=== PATIENT | male | born 1945 | race Caucasian/White ===

== ENCOUNTER 2024-01-19 07:45 | Outpatient (REF) | payer MEDICARE, OTHER, SELFPAY ==
[2024-01-19 08:10] LABS: Prothrombin Time 30.2 sec (9.0-11.6)
== END 2024-01-19 07:46 | disposition home or self-care (01) ==
LOC: LAB 07:45
PROVIDERS: Family Provider Internal Medicine; Visit Provider Nurse Practitioner Adult Health
DX: Z79.01 Long term (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 (principal)
CPT/HCPCS: 36415; 85610

== ENCOUNTER 2024-12-30 06:11 | Inpatient (IN) | payer MEDICARE, OTHER, SELFPAY ==
[2024-12-30] VITALS (110 sets, daily range): BP systolic 81–156; BP diastolic 58–113; PULSE 75–192; TEMP 36.6–37.5; O2SAT 85–100; BMI 28.1; BMI 25.7
--- OUTSIDE RECORDS SUMMARY | 2024-12-30 06:36 | XMS_ITS ---
Author Organization [facility] Address [address] [place] [address] Care Team Providers Care Office Specialist Name Role Phone Shabana Adams MD Primary Care Provider [phone] Carey Mckinney RN Unavailable [phone] Kristal Johnson ASSISTANT CHILD CARE TEACHER Unavailable [phone] [facility] Transitional Care Management Status:Enrolled (Active) Start date:11/20/2024 Enrollment date:11/22/2024 Enrollment reason:Identified using hospital discharge data Overview Patient discharged from [facility] on 11/20. Patient admitted to [facility]. Please contact SNF facility for BASILIO (inpt to SNF) within 48 hours. Case Team Name Relationship Phone Brittney Brown LPN(Responsible Staff) Licensed Pr actical Nurse [phone] Continued Care and Services Coordination
--- OUTSIDE RECORDS SUMMARY | 2024-12-30 06:36 | XMS_ITS | Encounter Summary ---
Author Organization [facility] [employer] Address [facility] [place]-[id number] [address] [place] [address] Care Team Providers Care Fundraising Coordinator Name Role Phone Shabana Adams MD Primary Care Provider [phone] Reason for Visit * Reason Onset Date Comments Med Refill 07/22/2023 Encounter Details Date Type Department Care Team (Late st Contact Info) Description 07/22/2023 Refill [facility] [address] [place] [address] Lula Bryant, RN Med Refill Social History Tobacco Use Types Packs/Day Years Used Date Smoking Tobacco: Former Smokeless Tobacco: Never Alcohol Use Standard Drinks/Week Comments No 0 (1 standard drink = 0.6 oz pur e alcohol) Childcare Answer Date Recorded Childcare Unknown 11/21/2018 Employment Answer Date Recorded Employment Unknown 11/21/2018 Hunger Screening Answer Date Recorded Within the past 12 months we worried whether our food would run out before we got money to buy more. Never True 05/07/2023 Within the past 12 months th e food we bought just didn't last and we didn't have money to get more. Never True 05/07/2023 Purpose - Life Answer Date Recorded Purpose and direction in life Unknown Sex and Gender Information Value Date Recorded Sex Assigned at Male 11/07/2024 7:23 PM EDT Legal Sex Male 11:27 AM EDT Gender Identity Male 11/07/2024 7:23 PM EDT Sexual Orientation Straight 11/07/2024 7: 23 PM EDT documented as of this encounter Plan of Treatment Upcoming Encounters Date Type Department Care Team (Late st Contact Info) Description 02/24/2025 11:30 AM EDT Office Visit [facility] [address] [place] [phone] Timothy Kang MD [address] [place] [address] 06/02/2025 12:00 PM EST Office Visit [facility] [address] [place] [address] Valeria Gonzalez MD [address] [facility] [place] [address] documented as of this encounter Results * Magnesium (08/13/2023 10:00 AM EST) Magnesium 2.1 1.8 - 2.6 mg/dL 08/13/2023 3:02 PM EST [facility] PL[facility] 08/13/2023 10:0 0 AM EST 08/13/2023 10:02 AM EST Kelin Dumont COURT BAILIFF OR SHERIFF-TOLL TEST WORKER LAB BLOOD ORDERABLES Final Result [facility] [address] [place] [address] documented in this encounter Visit Diagnoses Diagnosis Primary hypertension- Primary Unspecified essential hypertension Coronary artery disease involving [place] coronary artery of [place] heart without angina pectoris documented in this encounter Additional Health Concerns Infection Onset Date Last Indicated Resolved Time Respiratory Rule-Out 11/05/2024 11/05/2024 025 5:50 AM EDT documented as of this encounter Care Teams Fundraising Coordinator Relationship Specialty Start Date End Date Shabana Adams MD [address] [place] [address] PCP - General Family Medicine 11/05/24 documented as of this encounter
--- OUTSIDE RECORDS SUMMARY | 2024-12-30 06:36 | XMS_ITS | Encounter Summary ---
Author Organization [employer] Address [id number] [address] [place] [address] Care Team Providers Care Network Management Specialist Name Role Phone Shabana Adams MD Primary Care Provider [phone] Reason for Visit * Reason Onset Date Comments Consult 11/13/2024 ectopy Encounter Details Date Type Department Care Team (Late st Contact Info) Description 11/13/2024 Telephone [facility] [address] [place] [address] Vandana Lopez Consult (ectopy) Social History Tobacco Use Types Packs/Day Years Used Date Smoking Tobacco: Former Cigarettes 1974 Smokeless Tobacco: Never Alcohol Use Standard Drinks/Week Comments No 0 (1 standard drink = 0.6 oz pur e alcohol) rare -yearly [facility] Utilities Answer Date Recorded In the past 12 months has [employer], gas, oil, or water [employer] threatened to shut off services in your home? No 11/10/2024 AUDIT-C Answer Date Recorded Q1: How often do you have a drink containing alc ohol? Monthly or less 11/10/2024 Q2: How many drinks containi ng alcohol do you have on a typical day when you are drinking? 1 or 2 11/10/2024 Q3: How often do you have si x or more drinks on one occasion? Never 11/10/2024 PHQ-2 Answer Date Recorded Total Score 3 11/10/2024 PRAPARE - Transportation Answer Date Re corded In the past 12 months, has l ack of transportation kept you from medical appointments or from getting medications? No 10/22 In the past 12 months, has l ack of transportation kept you from meetings, work, or from getting things needed for daily living? No 11/10/2024 Housing Instability Answer Date Recorde d Are you worried or concerned that in the next two months you may not have stable housing that you own, rent or stay in as a part of a household? No 11/10/2024 Childcare Answer Date Recorded Childcare Unknown 11/21/2018 Employment Answer Date Recorded Employment Unknown 11/21/2018 Hunger Screening Answer Date Recorded Within the past 12 months we worried whether our food would run out before we got money to buy more. Never True 11/10/2024 Within the past 12 months th e food we bought just didn't last and we didn't have money to get more. Never True 11/10/2024 Purpose - Life Answer Date Recorded Purpose and direction in life Unknown Sex and Gender Information Value Date Recorded Sex Assigned at Male 11/07/2024 7:23 PM EDT Legal Sex Male 11:27 AM EDT Gender Identity Male 11/07/2024 7:23 PM EDT Sexual Orientation Straight 11/07/2024 7: 23 PM EDT documented as of this encounter Mental Status * Question Answer Entry Date Author Overall Cognitive Status X 11/16/2024 11:43 AM EDT Sandy Uriostegui OTA/Juan Carlos documented in this encounter Miscellaneous Notes * Telephone Encounter - Vandana Lopez - 11/13/2024 6:09 AM EDT Contract: [facility] calling for consult for ectopy. Room A825. Sent secure chat to Kelin Dumont. documented in this encounter Plan of Treatment Upcoming Encounters Date Type Department Care Team (Late st Contact Info) Description 02/24/2025 11:30 AM EDT Office Visit [facility] [address] [place] [phone] Timothy Kang MD [address] [place] [address] 06/02/2025 12:00 PM EST Office Visit [facility] [address] [place] [phone] Valeria Gonzalez MD [address] [address] documented as of this encounter Goals Goal Patient Goal Type Associated Problems Recent Progress Patient-Stated? Author <enter goal here> General Yes Juliet Bhatti, JOSE Note: Evaluation of progress towards goal: safe discharge documented as of this encounter Visit Diagnoses Not on filedocumented in this encounter Additional Health Concerns Assessment Noted Time PHQ-9 Depression Total Score: 3 11/11/19 11:13 AM EDT documented as of this encounter Care Teams Network Management Specialist Relationship Specialty Start Date End Date Shabana Adams MD [address] [place] [address] PCP - General Family Medicine 11/05/24 documented as of this encounter
--- OUTSIDE RECORDS SUMMARY | 2024-12-30 06:36 | XMS_ITS ---
Author Organization [facility] Address [address] [place] [address] Care Team Providers Care Script Reader Name Role Phone Shabana Adams MD Primary Care Provider Carey Mckinney RN Unavailable [phone] Kristal Johnson [employer] TEACHER Unavailable [phone] Chronic Care Management (CCM) Status:Enrolled (Active) Start date:10/06/2023 Enrollment date:10/28/2023 Enrollment reason:Referred by provider Overview Please assess for Care Management needs. 10/28/23, 3:51 PM - Carey Mckinney RN- Patient gives verbal consent to be enrolled in CCM Program and understands there could be a bill for this service. Case Team Name Relationship Phone Carey Mckinney RN(Responsible Staff) Registered Nurse [phone] Continued Care and Services Coordination
--- OUTSIDE RECORDS SUMMARY | 2024-12-30 06:36 | XMS_ITS | Encounter Summary ---
Author Organization [facility] [employer] Address [facility][id number] [address] [place] [address] Care Team Providers Care Dye Can Operator Name Role Phone Shabana Adams MD Primary Care Provider [phone] Encounter Details Date Type Department Care Team (Late st Contact Info) Description 04/06/2020 [facility]phone [facility] [address] [place] [address] [address] [place] [address] Social History Tobacco Use Types Packs/Day Years Used Date Smoking Tobacco: Former Smokeless Tobacco: Never Alcohol Use Standard Drinks/Week Comments No 0 (1 standard drink = 0.6 oz pur e alcohol) Childcare Answer Date Recorded Childcare Unknown 11/21/2018 Employment Answer Date Recorded Employment Unknown 11/21/2018 Sex and Gender Information Value Date Recorded Sex Assigned at Male 11/07/2024 7:23 PM EDT Legal Sex Male 11:27 AM EDT Gender Identity Male 11/07/2024 7:23 PM EDT Sexual Orientation Straight 11/07/2024 7: 23 PM EDT COVID-19 Exposure Response Date Recorded In the last month, have you been in contact with someone who was confirmed or suspected to have Coronavirus / COVID-19? No / Unsure 03/23/2020 8:46 AM EDT documented as of this encounter Miscellaneous Notes * Telephone Encounter - Zari Lane - 04/06/2020 3:34 PM EDT ----- Message from Zari Lane sent at 12/14/2019 3:18 PM EDT ----- Ruperto Cartagena MD Yesterday (9:43 AM) Cysto, local, [place]. Setup 6 months. Diagnosis history urothelial carcinoma * Telephone Encounter - Zari Lane - 04/06/2020 3:34 PM EDT SCHED 05/03/2020 documented in this encounter Plan of Treatment Upcoming Encounters Date Type Department Care Team (Late st Contact Info) Description 02/24/2025 11:30 AM EDT Office Visit [facility] [address] [place] [address] Timothy Kang MD [address] [place] [address] 06/02/2025 12:00 PM EST Office Visit [facility] [address] [place] [address] Valeria Gonzalez MD [address] [address] [place] [address] documented as of this encounter Visit Diagnoses Not on filedocumented in this encounter Additional Health Concerns Infection Onset Date Last Indicated Resolved Time Respiratory Rule-Out 11/05/2024 11/05/2024 025 5:50 AM EDT documented as of this encounter Care Teams Dye Can Operator Relationship Specialty Start Date End Date Shabana Adams MD [address] [place], [place] [phone] PCP - General Family Medicine 11/05/24 documented as of this encounter
--- OUTSIDE RECORDS SUMMARY | 2024-12-30 06:36 | XMS_ITS | Continuity of Care Document ---
Author Organization [facility] Address [address] [place] [address] Problems Unknown Problems Results Test Value / Unit Interpretation Reference Ran ge SARS-CoV-2 (COVID-19), RT-PC R/TMA[[id number]] Collected: 05/11/2021 03:06 PM Specimen Received: 05/12/2021 08:29 PM SARS-CoV-2 INTERPRETATION [[id number]] Negative Beatriz l See Note SARS-CoV-2 RNA NOT DETECTEDN egative results do not preclude SARS-CoV-2 infection and should notbe used as the sole basis for patient management decisions. Negativeresults must be combined with clinical observations, patient history,and epidemiological information. Optimum specimen types and timingfor peak viral levels during infections caused by SARS-CoV-2 have notbeen determined. Collection of multiple specimens or types ofspecimens may be necessary to detect virus. Improper specimencollection and handling, sequence variability under primers/probes,or organism present below the limit of detection may lead to falsenegative results. Positive and negative predictive values oftesting are highly dependent on prevalence. False negative testresults are more likely when prevalence is high. SOURCE [[id number]] NASOPHARYNGEAL Normal Note: Methodology is [employer] Real-Time RT-PCR. The expected result or reference range is NEGATIVE (Not Detected). For more information regarding COVID-19 testing to include clinicalinformation, methodology detail, intended use, FDA authorization andrecommended fact sheets for patients or healthcare providers, see NewTest Announcement: SARS-CoV-2 (COVID-19) by NAAT at URL below (note,fact sheets are provided by method given in report:[email or web address]/client-communications/ Alternatively, see downloadable PDF fact sheet at:https://www.[email or web address]-57-ZM-PCR Allergies, adverse reactions, alerts No known allergies and adverse reactions Medications No administered medications reported Vital Signs No vital signs reported Social History No smoking Hx information available
--- OUTSIDE RECORDS SUMMARY | 2024-12-30 06:36 | XMS_ITS | Encounter Summary ---
Author Organization [facility] Address [id number] [address] [place] [address] Care Team Providers Care Bean Roaster Name Role Phone Shabana Adams MD Primary Care Provider [phone] Encounter Details Date Type Department Care Team (Late st Contact Info) Description 02/27/2024 Telephone [facility] [address] [facility] [facility] [place] [address] Stephanie Blackburn CNA Social History Tobacco Use Types Packs/Day Years Used Date Smoking Tobacco: Former Smokeless Tobacco: Never Alcohol Use Standard Drinks/Week Comments No 0 (1 standard drink = 0.6 oz pur e alcohol) [facility] Utilities Answer Date Recorded In the past 12 months has e electric, gas, oil, or water company threatened to shut off services in your home? No 12/26/2023 PRAPARE - Transportation Answer Date Re corded In the past 12 months, has l ack of transportation kept you from medical appointments or from getting medications? No 10/2023 In the past 12 months, has l ack of transportation kept you from meetings, work, or from getting things needed for daily living? No 12/26/2023 Housing Instability Answer Date Recorde d Are you worried or concerned that in the next two months you may not have stable housing that you own, rent or stay in as a part of a household? No 12/26/2023 Childcare Answer Date Recorded Childcare Unknown 11/21/2018 Employment Answer Date Recorded Employment Unknown 11/21/2018 Hunger Screening Answer Date Recorded Within the past 12 months we worried whether our food would run out before we got money to buy more. Never True 02/02/2024 Within the past 12 months th e food we bought just didn't last and we didn't have money to get more. Never True 02/02/2024 Purpose - Life Answer Date Recorded Purpose [...] Cardiology [address] [place] [address] Timothy Kang MD [address] [place] [address] 06/02/2025 12:00 PM EST Office Visit [facility] [address] [place] [address] Valeria Gonzalez MD [address] [facility] [address] [place] [address] documented as of this encounter Visit Diagnoses Not on filedocumented in this encounter Additional Health Concerns Infection Onset Date Last Indicated Resolved Time Respiratory Rule-Out 11/05/2024 11/05/2024 025 5:50 AM EDT documented as of this encounter Care Teams Bean Roaster Relationship Specialty Start Date End Date Shabana Adams MD [address] [place] [address] PCP - General Family Medicine 11/05/24 documented as of this encounter
--- OUTSIDE RECORDS SUMMARY | 2024-12-30 06:36 | XMS_ITS | Encounter Summary ---
Author Organization [facility] [employer] Address [facility] [id number] [address] [place] [address] Care Team Providers Care Rip Saw Operator Name Role Phone Shabana Adams MD Primary Care Provider [phone] Encounter Details Date Type Department Care Team (Late st Contact Info) Description 01/09/2024 [facility] [address] [place] [address] Merna Cox RMA Social History Tobacco Use Types Packs/Day Years Used Date Smoking Tobacco: Former Smokeless Tobacco: Never Alcohol Use Standard Drinks/Week Comments No 0 (1 standard drink = 0.6 oz pur e alcohol) [facility] Utilities Answer Date Recorded In [...] got money to buy more. Never True 12/26/2023 Within the past 12 months th e food we bought just didn't last and we didn't have money to get more. Never True 12/26/2023 Purpose - Life Answer Date Recorded Purpose and direction in life Unknown Sex and Gender Information Value Date Recorded Sex Assigned at Male 11/07/2024 7:23 PM EDT Legal Sex Male 11:27 AM EDT Gender Identity Male 11/07/2024 7:23 PM EDT Sexual Orientation Straight 11/07/2024 7: 23 PM EDT documented as of this encounter Miscellaneous Notes * Telephone Encounter - BOGDAN Pederson - 01/09/2024 1:48 PM EDT I called Zachariah to schedule a repeat EGD per Dr. Yen's operative report on 01/02/24. Zachariah needs to have a repeat EGD in 8 weeks. There was no answer at his residence. * Telephone Encounter - BOGDAN Pederson - 01/09/2024 1:48 PM EDT I called his , Grace and we scheduled the repeat EGD for Zachariah on 02/27/24. documented in this encounter Plan of Treatment Upcoming Encounters Date Type Department Care Team (Late st Contact Info) Description 02/24/2025 11:30 AM EDT Office Visit [facility] [address] [place] [address] Timothy Kang MD [address] [place] [address] 06/02/2025 12:00 PM EST Office Visit [facility] [address] [place] [address] Valeria Gonzalez MD [address] [address] documented as of this encounter Visit Diagnoses Not on filedocumented in this encounter Additional Health Concerns Infection Onset Date Last Indicated Resolved Time Respiratory Rule-Out 11/05/2024 11/05/2024 025 5:50 AM EDT documented as of this encounter Care Teams Rip Saw Operator Relationship Specialty Start Date End Date Shabana Adams MD [address] [place] [address] PCP - General Family Medicine 11/05/24 documented as of this encounter
--- OUTSIDE RECORDS SUMMARY | 2024-12-30 06:36 | XMS_ITS | Encounter Summary ---
Author Organization [facility] Address [address] [place] [address] Care Team Providers Care Reconciliation Analyst Name Role Phone Shabana Adams MD Primary Care Provider [phone] Carey Mckinney RN Unavailable [phone] Kristal Johnson MATH INTERVENTIONIST Unavailable Encounter Details Date Type Department Care Team (Late st Contact Info) Description 12/24/2023 [facility] [address] [place] [address] Shabana Adams MD [address] [place] [address] Social History Tobacco Use Types Packs/Day Years Used Date Smoking Tobacco: Former Cigarettes 1.5 15 Smokeless Tobacco: Never Alcohol Use Standard Drinks/Week Comments Never 0 (1 standard drink = 0.6 oz pur e alcohol) Caffeine: 1-2 cups/day coffee Humiliation, Afraid, Rape, and Kick questionnair e Answer Date Recorded Within the last year, have y ou been afraid of your partner or ex-partner? No 12/04/2022 Within the last year, have y ou been humiliated or emotionally abused in other ways by your partner or ex-partner? No Within the last year, have y ou been kicked, hit, slapped, or otherwise physically hurt by your partner or ex-partner? No 12/04/2022 Within the last year, have y ou been raped or forced to have any kind of sexual activity by your partner or ex-partner? No 12/04/2022 Social Connection and Isolation Panel [NHANES] A nswer Date Recorded In a typical week, how many times do you talk on the phone with family, friends, or neighbors? Twice a week 12/04/2022 How often do you get togethe r with friends or relatives? Once a week 12/04/2022 How often do you attend zoroastrianism or denominational serv ices? Never 12/04/2022 Do you belong to any clubs o r organizations such as zoroastrianism groups, unions, fraternal or athletic groups, or school groups? No 12/04/2022 How often do you attend meet ings of the clubs or organizations you belong to? Never 12/04/2022 Are you , , di vorced, , never , or living with a partner? Patient declined 12/04/2022 AUDIT-C Answer Date Recorded Q1: How often do you have a drink containing alc ohol? Monthly or less 12/04/2022 Q2: How many drinks containi ng alcohol do you have on a typical day when you are drinking? 1 or 2 12/04/2022 Q3: How often do you have si x or more drinks on one occasion? Never 12/04/2022 Overall Financial Resource Strain (CARDIA) Answe r Date Recorded How hard is it for you to pa y for the very basics like food, housing, medical care, and heating? Not hard at all 12/04/2022 PHQ-2 Answer Date Recorded Patient Health Questionnaire-2 Score 0 12/08/2023 [facility] - Occupational Stress Questionnaire Answer Date Recorded Do you feel stress - tense, restless, nervous, or anxious, or unable to sleep at night because your mind is troubled all the time - these days? Not at all 12/04/2022 Exercise Vital Sign Answer Date Recorde d On average, how many days pe r week do you engage in moderate to strenuous exercise (like a brisk walk)? 0 days 12/04/2022 On average, how many minutes do you engage in exercise at this level? 0 min 12/04/2022 Hunger Vital Sign Answer Date Recorded Within the past 12 months, y ou worried that your food would run out before you got the money to buy more. Never true 12/05/19 23 Within the past 12 months, t he food you bought just didn't last and you didn't have money to get more. Never true 12/04/2022 PRAPARE - Transportation Answer Date Re corded In the past 12 months, has l ack of transportation kept you from medical appointments or from getting medications? Patient declined 12/04/2022 In the past 12 months, has l ack of transportation kept you from meetings, work, or from getting things needed for daily living? No 12/04/2022 Housing Stability Vital Sign Answer Andrew e Recorded In the last 12 months, was t here a time when you were not able to pay the mortgage or rent on time? No 12/04/2022 In the last 12 months, how many places have you lived? 1 12/04/2022 In the last 12 months, was t here a time when you did not have a steady place to sleep or slept in a halfway (including now)? No 12/04/2022 Sex and Gender Information Value Date Recorded Sex Assigned at Male 10/12/2024 3:15 PM EDT Legal Sex Male 8:15 PM EDT Gender Identity Male 09/04/2022 8:15 PM EDT Sexual Orientation Straight 10/12/2024 3: 15 PM EDT documented as of this encounter Plan of Treatment Upcoming Encounters Date Type Department Care Team (Late st Contact Info) Description 03/14/2025 1:30 PM EDT Office Visit [facility] [address] [place] [phone] Jr. Lefty Palma, DO [address] [facility] [address] [place] [address] documented as of this encounter Goals Goal Patient Goal Type Associated Problems Recent Progress Patient-Stated? Author Help patient manage antidepressant medication Care Plan Patient on antidepressant monitoring plan No Radha Becerra documented as of this encounter Visit Diagnoses Not on filedocumented in this encounter Additional Health Concerns Active Problems Noted Date Diagnosed Date Patient on antidepressant monitoring plan 2022 Assessment Noted Time PHQ-9 Depression Total Score: 0 12/08/19 24 9:00 AM EDT documented as of this encounter Care Teams Reconciliation Analyst Relationship Specialty Start Date End Date Shabana Adams MD [address] [facility] [address] [place], [place] [id number] PCP - General Family Medicine 11/14/22 Kristal Johnson NP [address] [facility] [address] [place], [place] [id number] PCP - ACO Reach 08/22/23 Carey Mckinney, JOSE [address] [facility] [place] [address] Registered Nurse Family Medicine 10/06/23 documented as of this encounter
--- OUTSIDE RECORDS SUMMARY | 2024-12-30 06:36 | XMS_ITS | Encounter Summary ---
Author Organization [facility] [employer] Address [id number] [address] [place] [address] Care Team Providers Care Spreader Name Role Phone Shabana Adams MD Primary Care Provider [phone] Encounter Details Date Type Department Care Team (Late st Contact Info) Description 09/14/2020 [facility] [address] [place] [address] [address] [place] [phone] Social History Tobacco Use Types Packs/Day Years Used Date Smoking Tobacco: Former Smokeless Tobacco: Never Alcohol Use Standard Drinks/Week Comments No 0 (1 standard drink = 0.6 oz pur e alcohol) Childcare Answer Date Recorded Childcare Unknown 11/21/2018 Employment Answer Date Recorded Employment Unknown 11/21/2018 Purpose - Life Answer Date Recorded Purpose and direction in life Unknown Sex and Gender Information Value Date Recorded Sex Assigned at Male 11/07/2024 7:23 PM EDT Legal Sex Male 11:27 AM EDT Gender Identity Male 11/07/2024 7:23 PM EDT Sexual Orientation Straight 11/07/2024 7: 23 PM EDT documented as of this encounter Miscellaneous Notes * Telephone Encounter - Zari Lane - 09/14/2020 10:07 AM EDT ----- Message from Zari Lane sent at 05/05/2020 1:48 PM EST ----- Regarding: SENT 05/03/2020 Ruperto Cartagena MD 2 days ago Patient should be seen in the office after the of the year with PSA. PSA order already in the medical center. ?? Cysto retrograde pyelogram mac anesthesia. Potential urethral dilation. [place]. Setup 6 months. Diagnosis history of bladder cancer history of bulbar urethral stricture. * Telephone Encounter - Zari Domingo - 09/14/2020 10:07 AM EDT Please see MAC procedure below. Thank you * Telephone Encounter - Destiny Galeanaes - 09/14/2020 10:07 AM EDT Talked to pt 10/12/2020 Annual f/u [place] 07/11/2021 @ 1pm (Zari scheduled) Pat [place] 11/03/2020 @ 1030am (order faxed ) covid [place] 11/12/2020 @ 10am Cysto [place] 11/15/2020 @ 10am arrive @ 8am Pt on plavix clearance faxed to mis specialist 10/12/2020 Pt aware info mailed 10/12/2020 documented in this encounter Plan of Treatment Upcoming Encounters Date Type Department Care Team (Late st Contact Info) Description 02/24/2025 11:30 AM EDT Office Visit [facility] [address] [place] [phone] Timothy Kang MD [address] [place] [address] 06/02/2025 12:00 PM EST Office Visit [facility] [address] [place] [phone] Valeria Gonzalez MD [address] [facility] [address] [place] [address] documented as of this encounter Visit Diagnoses Not on filedocumented in this encounter Additional Health Concerns Infection Onset Date Last Indicated Resolved Time Respiratory Rule-Out 11/05/2024 11/05/2024 025 5:50 AM EDT documented as of this encounter Care Teams Spreader Relationship Specialty Start Date End Date Shabana Adams MD [address] [place] [address] PCP - General Family Medicine 11/05/24 documented as of this encounter
--- OUTSIDE RECORDS SUMMARY | 2024-12-30 06:36 | XMS_ITS | Encounter Summary ---
Author Organization [facility] Address [address] [place] [address] Care Team Providers Care Ager Operator Name Role Phone Shabana Adams MD Primary Care Provider [phone] Shabana Adams MD Unavailable [phone] Carey Mckinney RN Unavailable [phone] Kristal Johnson NP Unavailable [phone] Encounter Details Date Type Department Care Team (Late st Contact Info) Description 06/28/2023 Abstract [facility] [address] [place] [address] Mayela Angeles NP [address] [place] [address] Social History Tobacco Use Types Packs/Day Years Used Date Smoking Tobacco: Former Cigarettes Smokeless Tobacco: Never Alcohol Use Standard Drinks/Week [...] week 12/04/2022 How often do you attend baptism or anabaptist serv ices? Never 12/04/2022 Do you belong to any clubs o r organizations such as baptism groups, unions, fraternal or athletic groups, or [...] Date Recorded Patient Health Questionnaire-2 Score 0 12/05/2022 [facility] - Occupational Stress [...] money to buy more. Never true 12/05/19 Within the past 12 months, t he [...] place to sleep or slept in a intermediate (including now)? No 12/04/2022 Sex and Gender [...] Visit [facility] [address] [place] [address] Jr. Lefty Palma, DO [address] [place] [address] [place] [address] documented as of this encounter Goals Goal [...] Noted Time PHQ-9 Depression Total Score: 0 12/06/19 1:06 PM EDT documented as of this encounter Care Teams Ager Operator Relationship Specialty Start Date End Date Shabana Adams MD [address] [facility] [address] [place], [place] [id number] PCP - General Family Medicine 11/14/22 Shabana Adams MD [address] [facility] [place] [address] PCP - ACO Reach 11/14/22 08/21/23 Kristal Johnson NP [address] [facility] [address] [place], [place] [id number] PCP - ACO Reach 08/22/23 Carey Mckinney RN [address] [facility] [place] [address] Registered Nurse Family Medicine 10/06/23 documented as of this encounter
--- OUTSIDE RECORDS SUMMARY | 2024-12-30 06:36 | XMS_ITS | Encounter Summary ---
Author Organization [facility] Address [address] [place] [address] Care Team Providers Care Bioprocess Engineer Name Role Phone Shabana Adams MD Primary Care Provider [phone] Shabana Adams MD Unavailable [phone] Carey Mckinney RN Unavailable [phone] Kristal Johnson NP Unavailable [phone] Encounter Details Date Type Department Care Team (Late st Contact Info) Description 03/22/2023 Abstract [facility] [address] [place] [address] Matt Hernandez DPM [address] [place], [place] [id number] Social History Tobacco Use Types Packs/Day Years [...] week 12/04/2022 How often do you attend nondenominational or lutheran serv ices? Never 12/04/2022 Do you belong to any clubs o r organizations such as nondenominational groups, unions, fraternal or athletic groups, or [...] Recorded Patient Health Questionnaire-2 Score 0 12/05/2022 [facility] - Occupational Stress [...] place to sleep or slept in a alf (including now)? No 12/04/2022 Sex and Gender [...] Visit [facility] [address] [place] [address] Jr. Lefty Palma, DO [address] [facility] [address] [place] [address] documented as of this encounter Goals Goal [...] documented as of this encounter Care Teams Bioprocess Engineer Relationship Specialty Start Date End Date Shabana Adams MD [address] [place], [place] [id number] PCP - General Family Medicine 11/14/22 Shabana Adams MD [address] [facility] [place] [address] PCP - ACO Reach 11/14/22 08/21/23 Kristal Johnson NP [address] [place], [place] [phone] PCP - ACO Reach 08/22/23 Carey Mckinney, JOSE [address] [place] [address] Registered Nurse Family Medicine 10/06/23 documented as of this encounter
--- OUTSIDE RECORDS SUMMARY | 2024-12-30 06:36 | XMS_ITS ---
Author Organization [employer] Address [id number] [address] [place] [address] Care Team Providers Care Digital Strategist Senior Manager Name Role Phone Shabana Adams MD Primary Care Provider [phone] Active Problems Problem Noted Date Diagnosed Date ISTAP type 2 skin tear of right lower extremity 11/08/2024 Pressure injury of sacral region, unstageable Osteomyelitis 11/07/2024 Osteomyelitis of lumbar spine 11/06/2024 Pneumonia 11/06/2024 Fall, initial encounter 11/05/2024 Acute traumatic pain 08/26/2024 ABLA (acute blood loss anemia) 08/25/2024 Thrombocytopenia 08/25/2024 Fall at home, initial encounter 08/25/2024 Warfarin-induced coagulopathy 08/25/2024 Hemothorax, traumatic, initial encounter 025 Hyperglycemia 08/25/2024 Rib fractures 08/24/2024 Urinary incontinence 03/16/2024 Overview (03/16/2024): 03/16/24: Urinary incontinence. Multifactorial. He was given a specimen cup to check a urine for culture. Additionally samples of Gemtesa given Occult blood positive stool 12/30/2023 Hypomagnesemia 12/27/2023 E coli bacteremia 12/27/2023 Supratherapeutic INR 12/26/2023 LOUISA (acute kidney injury) 12/26/2023 Hypokalemia 12/26/2023 Acute on chronic diastolic congestive heart fail ure 12/26/2023 Hydronephrosis 12/26/2023 Hydroureter 12/26/2023 Pneumonia, unspecified organism 11/28/2023 Lymphedema 11/12/2023 Neck pain 11/07/2023 Venous stasis ulcer of left lower leg with edema of left lower leg 11/07/2023 Unspecified cirrhosis of liver 06/23/2023 Type 2 diabetes mellitus wit h diabetic neuropathy, unspecified 06/23/2023 Pure hypercholesterolemia, unspecified Problems related to health literacy 06/23/2023 Heart failure, unspecified 06/23/2023 Chronic kidney disease 06/23/2023 Unspecified osteoarthritis, unspecified site 06/2023 Actinic keratosis 11/04/2022 History of myocardial infarction 11/04/2022 Nephrolithiasis 11/04/2022 Neurologic disorder associated with diabetes karey litus 11/04/2022 Peripheral edema 11/04/2022 Type 2 diabetes mellitus without complication Venous insufficiency (chronic) (peripheral) 10/21 Bulbous urethral stricture 09/21/2021 Overview (09/21/2021): Added automatically from request for surgery [id number] 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 coli UTI 02/05/2021 Overview (09/06/2024): Added automatically from request for surgery [id number] Added automatically from request for surgery [id number] Benign prostatic hyperplasia with urinary obstru ction 05/03/2020 Overview (06/09/2024): ==== 06/09/2024 ==== now on Bumex. History congestive heart failure. Does have fluid restriction as well. Plans: elsewhere ==== 12/10/2023 ==== recently started Lasix. Has complaints of urgency frequency some urge incontinence and certainly nocturnal enuresis. During the nighttime he is mobilizing fluid significantly. He has significant edema. Pitting. This is all a production issue. Failed Myrbetriq. Today's postvoid residual is really just a bladder volume. 142 cc. ====11/12/23==== frequency and incontinence since his last TURBT. PVR 0. Culture pending. He is interested in a trial of Myrbetriq 25 mg ==== 03/17/2023 ==== patient has had some urgency frequency some urge incontinence. He did have a bulbar urethral stricture dilated. Will send urine for culture. The contact me should this not resolve with time TURP history 2009. Cystoscopy April 2020 with the regrowth prostatic tissue. Could be obstructing. Check patient's symptomatology. Assessment & Plan (12/10/2023 2:10 PM EDT): Almost certainly a production issue. Edema issue. Did have this addressed better to really then ascertain his lower urinary tract symptomatology. Will see him back in 6 months Assessment & Plan (11/12/2023 4:57 PM EDT): He will monitor his blood pressure while on Myrbetriq and discontinue if elevated. We will see him back in 1 month or sooner if any problems. If symptoms are related to irritation from the procedure, we can have him discontinue the Myrbetriq and see how he does without it. He also admits that his glucose recently has been higher than normal. He was being treated for cellulitis. Hopefully once this clears, his glucose will improve and his urinary symptoms may follow. 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 Family history stones sister and mother. Repeat 24 urine on calcium and sodium restricted diet failed. Parathyroid hormone within normal limits.- -patient cannot be on hydrochlorothiazide secondary to allergy Elevated PSA 09/11/2016 Overview (10/27/2024): ==== 10/27/2024 ==== age and comorbidites LE <5-10 yrs ==== 06/09/2024 ==== PSA 3.37 ==== 05/07/2023 ==== PSA improved 6.28. Good number. Stable for the patient. PSA 9 months ==== 08/07/2022 ==== PSA basically stable 6.49 ====01/16/22====PSA 6.29. GARCIA benign ==== 07/11/2021 ==== psa 7.58 GARCIA is benign ==== 07/03/2020 ==== PSA 6.08. GARCIA is negative. Pt with extensive comorbidities and LE < 10 yrs ==== 06/30/2019 ==== PSA 5.92. Really reasonable relatives with the patient has had previously. Digital rectal exam today is negative +++++++++ 09/11/2016 ALLSCRIPTS SUMMARY +++++++++++ ### TURP November 2009 pathology negative 2013 PSA 4.7. Extensive comorbidities history of stroke TIA contemplate anti- platelet agent Plavix. Spring 2014 PSA 4.7. Rectal exam negative. 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 Neurosurgeon wanted off of anti-platelet but lump receiver wanted him to stay on Plavix secondary to heart stent. August 2016 PSA 7.39 free and total ratio of 28% GARCIA neg ## elevated 4K Score 29% probability of [place] 7 or higher disease ==== 02/11/2018 ==== MRI PIRADS category 2 excellent finding. This point I do not feel compelling reason to take him off of his Plavix Assessment & Plan (01/16/2022 1:23 PM EDT): We will recheck in 6 months. Assessment & Plan (07/03/2020 1:19 PM EST): Monitor psa loosely. Pt and agree Assessment & Plan (06/30/2019 3:35 PM EST): psa one year given the stability Assessment & Plan (02/11/2018 3:30 PM EDT): Will continue monitor the PSA given his very good MRI report. PSA 6 months Assessment & Plan (12/17/2017 2:35 PM EDT): We discussed then obtaining an MRI. Really has then to have the patient office anti-platelet medications unless we find compelling reason. Assessment & Plan (11/05/2017 3:39 PM EDT): See you PSA slightly improved 6.48. Will obtain 4K Score given the above discussion. Patient does need a find out that his [id number] cost summer going to try to look into that. GARCIA next visit Assessment & Plan (09/16/2016 2:30 PM EDT): Given history of strokes well even on antiplatelet agent as well as comorbidities and age we did discuss 4K Score as a means to try to risk stratify him. Certainly would only want to biopsy if absolutely necessary. Bladder cancer 09/11/2016 Overview (10/27/2024): ==== 10/27/2024 ==== ### cysto with right rpg some dilation on the right no filling defect--slight narrowing. Has had bilateral fullness since about December or so. Creatinine slight bump at that time. It has been pretty stable since. Right retrograde pyelogram slight narrowing. Some mild hydro. Cystogram at the time no reflux. Will need fish cytology surveillance cystoscopy left retrograde pyelogram. This way we can least look at the left side. Twenty with a demonstrates to query some of the mild hydro will then consider fluoroscopic urodynamic studies see if he has a high pressure bladder. ==== 06/09/2024 ==== given the continued incontinence will check a PVR today. Will do a cystoscopy [facility] [place] bladder solution as well. Will move that up. Down the road consideration potentially for urodynamics. ==== 12/10/2023 ==== will do a cysto in spring ==== 10/08/2023 ==== ### status post TURBT. At the bladder neck. Benign tissue thankfully. Did have some postop hematuria. A clot. He is passing urine currently. Offered to clot evacuation verses observation given the uro kinase. He chooses the latter. Will see him back for cysto roughly 3-6 months. Of note cytology was negative fish was suspicious. ==== 03/17/2023 ==== ##### status post cystoscopy biopsy by both ureteral orifi. Pathology sent [facility]. Possible very early low-grade recurrence fish cytology negative. ====01/16/22====s/ cystoscopy 11/12/21. Cytology neg. Denies gross hematuria. Due for repeat in Jul 2022 ==== 07/03/2020 ==== most recent cysto and cytology and fish neg. Cysto in 6 mo ==== 01/17/2020 ==== ### local cystoscopy with urethral dilation secondary to bulbar stricture. Cytology at some suspicious cells. But this was obtain is an instrumented. FISH was negative. 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 [facility] diagnosed as dysplasia. -TURBT with stent left ureteral orifice. Area previous biopsy low-grade carcinoma final pathology of TUR was dysplasia. Stent removed September 2015. Assessment & Plan (06/09/2024 2:14 PM EST): Will also obtain an ultrasound to evaluate for any hydro ureter. Assessment & Plan (10/08/2023 1:40 PM EDT): Have the patient in December or January give urine studies for fish and cytology. If these are still concerning then he would end up with a cystoscopy under anesthesia potential ureteroscopy. If these are all normalize then will just set him up for A surveillance cystoscopy Assessment & Plan (03/17/2023 11:39 AM EDT): Plan: Cystoscopy repeat under anesthesia 5 months Assessment & Plan (07/11/2021 1:03 PM EST): At time of last cystoscopy cytology fish were negative. Patient should have surveillance setup. Assessment & Plan (01/17/2020 4:55 PM EDT): Will repeat cytology today. If this is positive or suspicious then he will have procedure shortly under anesthesia. If it is negative then will just move up his cysto for about 3 months. Consideration for retrograde pyelogram but he does had this done less than 1 year ago. 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 Past Treatment and Therapy Plans Lifetime Dose Tracking * Chemical Lifetime Dose Automatic Entry Manual Entr y Fluoroscopy 47.62 mGy 47.62 mGy 0 mGy Resolved Problems Problem Noted Date Diagnosed Date Resolved Date Paroxysmal atrial fibrillation 01/06/2018 12/22/2018 H/O coronary angioplasty 11/13/2010 Benign essential hypertension 01/02/2006 01/06/2018
--- OUTSIDE RECORDS SUMMARY | 2024-12-30 06:36 | XMS_ITS | Encounter Summary ---
Author Organization [facility] Address [address] [facility] [place] [address] Care Team Providers Care Cognos Administrator Name Role Phone Shabana Adams MD Primary Care Provider [phone] Shabana Adams MD Unavailable [phone] Carey Mckinney RN Unavailable [phone] Kristal Johnson NP Unavailable [phone] Encounter Details Date Type Department Care Team (Late st Contact Info) Description 04/22/2023 Abstract [facility] [address] [place] [address] Shabana Adams MD [address] [place] [address] Social History Tobacco Use Types [...] week 12/04/2022 How often do you attend judaism or uatsdin serv ices? Never 12/04/2022 Do you belong to any clubs o r organizations such as judaism groups, unions, fraternal or athletic groups, or [...] Recorded Patient Health Questionnaire-2 Score 0 12/05/2022 [facility] - Occupational [...] place to sleep or slept in a senior living (including now)? No 12/04/2022 Sex and Gender [...] Visit [facility] [address] [place] [address] Jr. Lefty Palma, DO [address] [facility] [address] [place] [address] documented as of this encounter Goals Goal [...] documented as of this encounter Care Teams Cognos Administrator Relationship Specialty Start Date End Date Shabana Adams MD [address] [facility] [place] [address] PCP - General Family Medicine 11/14/22 Shabana Adams MD [address] [facility] [place] [address] PCP - ACO Reach 11/14/22 08/21/23 Kristal Johnson NP [address] [facility] [address] [place], [place] [address] PCP - ACO Reach 08/22/23 Carey Mckinney, RN [address] [facility] [place] [address] Registered Nurse Family Medicine 10/06/23 documented as of this encounter
--- OUTSIDE RECORDS SUMMARY | 2024-12-30 06:36 | XMS_ITS | Encounter Summary ---
Author Organization [facility] Address [address] [place] [address] Care Team Providers Care Floor Attendant Name Role Phone Shabana Adams MD Primary Care Provider [phone] Shabana Adams MD Unavailable [phone] Carey Mckinney RN Unavailable [phone] Kristal Johnson NP Unavailable [phone] Encounter Details Date Type Department Care Team (Late st Contact Info) Description 01/20/2023 Abstract [facility] [address] [place] [address] Shabana Adams MD [address] [place] [address] Social History Tobacco Use Types [...] week 12/04/2022 How often do you attend scientologist or pentecostal serv ices? Never 12/04/2022 Do you belong to any clubs o r organizations such as scientologist groups, unions, fraternal or athletic groups, or [...] Recorded Patient Health Questionnaire-2 Score 0 12/05/2022 [facility] - Occupational [...] place to sleep or slept in a fpc (including now)? No 12/04/2022 Sex and Gender [...] Visit [facility] [address] [place] [address] Jr. Lefty Palma, [address] [place] [address] [place], [place] [id number] documented as of this encounter Visit Diagnoses Not on filedocumented in this encounter Additional Health Concerns Assessment Noted Time PHQ-9 Depression Total Score: 0 12/06/19 1:06 PM EDT documented as of this encounter Care Teams Floor Attendant Relationship Specialty Start Date End Date Shabana Adams MD [address] [place] [address] PCP - General Family Medicine 11/14/22 Shabana Adams MD [address] [place] [address] [place] [address] PCP - ACO Reach 11/14/22 08/21/23 Kristal Johnson NP [address] [place] [address] [place] [address] PCP - ACO Reach 08/22/23 Carey Mckinney, JOSE [address] [place] [address] [place] [address] Registered Nurse Family Medicine 10/06/23 documented as of this encounter
--- OUTSIDE RECORDS SUMMARY | 2024-12-30 06:36 | XMS_ITS | Encounter Summary ---
Author Organization [facility] tem Address [id number] [address] [place] [address] Care Team Providers Care Drum Drier Operator Name Role Phone Shabana Adams MD Primary Care Provider [phone] Reason for Visit * Reason Onset Date Comments Surgical Or Dental Clearance 10/24/2020 Encounter Details Date Type Department Care Team (Late st Contact Info) Description 10/24/2020 Telephone [facility] Cardiology [address] [place] [address] Eugenio Bright RN Surgical Or Dental Clearance Social History Tobacco Use Types Packs/Day Years [...] encounter Miscellaneous Notes * Telephone Encounter - Eugenio Bright RN - 10/24/2020 3:50 PM EDT Received preop clearance letter from Dr. Ruperto Cartagena's office. Surgery: Cystoscopy retrograde pyelogram Date of Surgery: 5/26/21 Type of anesthesia: General Requesting to hold plavix for 5-7 days prior to surgery Fax clearance to [phone] ATTN: Destiny Pt was last seen by Dr. Pyle on 03/17/20. Pt will need to be seen in office for clearance. Will route to front desk person to call pt to schedule office visit. Will place clearance request in bin to scan to pt's chart. documented in this encounter Plan of Treatment Upcoming Encounters Date Type Department Care Team (Late st Contact Info) Description 02/24/2025 11:30 AM EDT Office Visit [facility] [address] [place] [phone] Timothy Kang MD [address] [place] [address] 06/02/2025 12:00 PM EST Office Visit [facility] Rheumatology [address] [place] [address] Valeria Gonzalez MD [address] [facility] [address] [place] [address] documented as of this encounter Visit Diagnoses Not on filedocumented in this encounter Additional Health Concerns Infection Onset Date Last Indicated Resolved Time Respiratory Rule-Out 11/05/2024 11/05/2024 025 5:50 AM EDT documented as of this encounter Care Teams Drum Drier Operator Relationship Specialty Start Date End Date Shabana Adams MD [address] [place], [place] [address] PCP - General Family Medicine 11/05/24 documented as of this encounter
--- OUTSIDE RECORDS SUMMARY | 2024-12-30 06:36 | XMS_ITS | Encounter Summary ---
Author Organization [employer] [facility] [place] [facility] tem Address [id number] [address] [place] [address] Care Team Providers Care Broadcast Systems Engineer Name Role Phone Shabana Adams MD Primary Care Provider [phone] Encounter Details Date Type Department Care Team (Late st Contact Info) Description 04/21/2019 Telephone [facility] [address] [place] [phone] Ruperto Cartagena MD [address] [place] [address] Social History Tobacco Use Types Packs/Day Years [...] Cardiology [address] [place] [phone] Timothy Kang MD [address] [place] [address] 06/02/2025 12:00 PM EST Office Visit [facility] Rhe[facility] [address] [place] [address] Valeria Gonzalez MD [address] [address] documented as of this encounter Visit Diagnoses Not on filedocumented in this encounter Additional Health Concerns Infection Onset Date Last Indicated Resolved Time Respiratory Rule-Out 11/05/2024 11/05/2024 025 5:50 AM EDT documented as of this encounter Care Teams Broadcast Systems Engineer Relationship Specialty Start Date End Date Shabana Adams MD [address] [place], [place] [address] PCP - General Family Medicine 11/05/24 documented as of this encounter
--- OUTSIDE RECORDS SUMMARY | 2024-12-30 06:36 | XMS_ITS | Encounter Summary ---
Author Organization [facility] Address [address] [place] [address] Care Team Providers Care Geometry Tutor Name Role Phone Shabana Adams MD Primary Care Provider [phone] Shabana Adams MD Unavailable [phone] Carey Mckinney RN Unavailable [phone] Kristal Johnson NP Unavailable [phone] Encounter Details Date Type Department Care Team (Late st Contact Info) Description 02/20/2023 Orders Only [facility] [address] [place] [address] Jumana Huston NP [address] [facility] 1 [place] [phone] Social History Tobacco Use Types Packs/Day Years [...] week 12/04/2022 How often do you attend christian or worship serv ices? Never 12/04/2022 Do you belong to any clubs o r organizations such as christian groups, unions, fraternal or athletic groups, or [...] Recorded Patient Health Questionnaire-2 Score 0 12/05/2022 [facility] - [...] Visit [facility] [address] [place] [address] Jr. Lefty Palma, [address] [place] [address] [place], [place] [address] documented as of this encounter Visit Diagnoses Not on filedocumented in this encounter Additional Health Concerns Assessment Noted Time PHQ-9 Depression Total Score: 0 12/06/19 1:06 PM EDT documented as of this encounter Care Teams Geometry Tutor Relationship Specialty Start Date End Date Shabana Adams MD [address] [place] [address] PCP - General Family Medicine 11/14/22 Shabana Adams MD [address] [place] [address] [place] [address] PCP - ACO Reach 11/14/22 08/21/23 Kristal Johnson NP [address] [place] [address] [place] [address] PCP - ACO Reach 08/22/23 Carye Mckinney, JOSE [address] [place] [address] [place] [address] Registered Nurse Family Medicine 10/06/23 documented as of this encounter
--- OUTSIDE RECORDS SUMMARY | 2024-12-30 06:36 | XMS_ITS | Encounter Summary ---
Author Organization [facility] Address [id number] [address] [place] [address] Care Team Providers Care Rubber Flap Cutter Name Role Phone Shabana Adams MD Primary Care Provider [phone] Reason for Visit * Reason Comments Med Refill Encounter Details Date Type Department Care Team (Late st Contact Info) Description 11/17/2023 Refill [facility] [address] [place] [phone] Kelni Dumont, TRANSVERSE ABDOMINAL MUSCLE NURSE-MOVIE PRODUCER [address] [place] [address] Med Refill Social History Tobacco Use Types [...] got money to buy more. Never True 11/21/2023 Within the past 12 months th e food we bought just didn't last and we didn't have money to get more. Never True 11/21/2023 Purpose - Life Answer Date Recorded Purpose and direction in life Unknown Sex and Gender Information Value Date Recorded Sex Assigned at Male 11/07/2024 7:23 PM EDT Legal Sex Male 11:27 AM EDT Gender Identity Male 11/07/2024 7:23 PM EDT Sexual Orientation Straight 11/07/2024 7: 23 PM EDT documented as of this encounter Miscellaneous Notes * Telephone Encounter - Linda Red RN - 11/17/2023 12:53 PM EDT Script signed and routed to pharmacy 11/19/23 documented in this encounter Plan of Treatment Upcoming Encounters Date Type Department Care Team (Late st Contact Info) Description 02/24/2025 11:30 AM EDT Office Visit [facility] [address] [place] [address] Timothy Kang MD [address] [place] [address] 06/02/2025 12:00 PM EST Office Visit [facility] Rheumat[facility] [address] [place] [phone] Valeria Gonzalez MD [address] [facility] [address] [place] [address] documented as of this encounter Visit Diagnoses Not on filedocumented in this encounter Additional Health Concerns Infection Onset Date Last Indicated Resolved Time Respiratory Rule-Out 11/05/2024 11/05/2024 025 5:50 AM EDT documented as of this encounter Care Teams Rubber Flap Cutter Relationship Specialty Start Date End Date Shabana Adams MD [address] [place] [address] PCP - General Family Medicine 11/05/24 documented as of this encounter
--- OUTSIDE RECORDS SUMMARY | 2024-12-30 06:36 | XMS_ITS | Encounter Summary ---
Author Organization [employer] [facility] Address [id number] [address] [place] [address] Care Team Providers Care Director Retirement Name Role Phone Shabana Adams MD Primary Care Provider [phone] Encounter Details Date Type Department Care Team (Late st Contact Info) Description 05/24/2021 [facility] [address] [place] [address] Caron Montgomery, Arun Social History Tobacco Use Types Packs/Day Years [...] have Coronavirus / COVID-19? No / Unsure 05/25/2021 1:04 PM EST documented as of this encounter Miscellaneous Notes * Telephone Encounter - Caron Montgomery PharmD - 05/24/2021 10:48 AM EST ----- Message from Beltran Roque MD sent at 05/03/2021 12:07 PM EST ----- Regarding: anticoagulation Needs anticoagulation Given card for 30 days--which would be least expensive for him? Could you let them know please? * Telephone Encounter - Caron Montgomery PharmD - 05/24/2021 10:48 AM EST Contacted the pt and he said that he had filled out the [employer] pt assistance form and had given j luiso Leslee at the [place] office. The pt said the office was going to fill out the physician section and then fax it to the Pt Assistance program. The pt has not heard back to whether he was approved or not. Provided pt with the phone number to the [employer] Pt Assistance foundation to call to find outif it was approved ( ). Pt will call to see where he is in the process. * Telephone Encounter - Leslee Armenta - 05/24/2021 10:48 AM EST Sarah Pérez has submitted it and will do a f/u call to them today to check the status. Thx! documented in this encounter Plan of Treatment Upcoming Encounters Date Type Department Care Team (Late st Contact Info) Description 02/24/2025 11:30 AM EDT Office Visit [facility] [address] [place] [address] Timothy Kang MD [address] [place] [address] 06/02/2025 12:00 PM EST Office Visit [facility] Rheumat[facility] [address] [place] [address] Valeria Gonzalez MD [address] [address] documented as of this encounter Visit Diagnoses Not on filedocumented in this encounter Additional Health Concerns Infection Onset Date Last Indicated Resolved Time Respiratory Rule-Out 11/05/2024 11/05/2024 025 5:50 AM EDT documented as of this encounter Care Teams Director Retirement Relationship Specialty Start Date End Date Shabana Adams MD [address] [place] [address] PCP - General Family Medicine 11/05/24 documented as of this encounter
--- OUTSIDE RECORDS SUMMARY | 2024-12-30 06:36 | XMS_ITS | Encounter Summary ---
Author Organization [facility] Address [address] [place] [address] Care Team Providers Care Medical Investigator Name Role Phone Shabana Adams MD Primary Care Provider [phone] Shabana Adams MD Unavailable Carey Mckinney RN Unavailable [phone] Kristal Johnson NP Unavailable Reason for Visit * Reason Onset Date Comments Med Refill 04/30/2023 Encounter Details Date Type Department Care Team (Late st Contact Info) Description 04/30/2023 Refill [facility] [address] [place] [address] Shabana Adams MD [address] [place] [address] Type 2 diabetes mellitus without complication, without long-term current use of insulin (HCC) Social History Tobacco Use Types Packs/Day Years [...] week 12/04/2022 How often do you attend worship or pentecostalism serv ices? Never 12/04/2022 Do you belong to any clubs o r organizations such as worship groups, unions, fraternal or athletic groups, or [...] Recorded Patient Health Questionnaire-2 Score 0 12/05/2022 [facility] Occupational Stress Questionnaire Answer [...] place to sleep or slept in a [place] health care facility (including now)? No 12/04/2022 Sex and Gender [...] Visit [facility] [address] [place] [address] Jr. Lefty Palma, DO [address] [place] [address] [place] [address] documented as of this encounter Goals Goal Patient Goal Type Associated Problems Recent Progress Patient-Stated? Author Help patient manage antidepressant medication Care Plan Patient on antidepressant monitoring plan No Radha Becerra documented as of this encounter Visit Diagnoses Diagnosis Type 2 diabetes mellitus without complication, without long-term current use of insulin (HCC) documented in this encounter Additional Health Concerns Active Problems Noted Date Diagnosed Date Patient on antidepressant monitoring plan 2022 Assessment Noted Time PHQ-9 Depression Total Score: 0 12/06/19 23 1:06 PM EDT documented as of this encounter Care Teams Medical Investigator Relationship Specialty Start Date End Date Shabana Adams MD [address] [facility] [place] [address] PCP - General Family Medicine 11/14/22 Shabana Adams MD [address] [facility] [place] [address] PCP - ACO Reach 11/14/22 08/21/23 Kristal Johnson NP [address] [facility] [place] [address] PCP - ACO Reach 08/22/23 Carey Mckinney RN [address] [facility] [place] [address] Registered Nurse Family Medicine 10/06/23 documented as of this encounter
--- OUTSIDE RECORDS SUMMARY | 2024-12-30 06:36 | XMS_ITS | Encounter Summary ---
Author Organization [employer] [facility] Address [id number] [address] [place] [address] Care Team Providers Care Land Survey Technician Name Role Phone Shabana Adams MD Primary Care Provider [phone] Encounter Details Date Type Department Care Team (Late st Contact Info) Description 05/24/2021 Orders Only [facility] [address] [place] [phone] External, Scanning Provider Social History Tobacco Use Types Packs/Day Years [...] PM EST documented as of this encounter Plan of Treatment Upcoming Encounters Date Type Department Care Team (Late st Contact Info) Description 02/24/2025 11:30 AM EDT Office Visit [facility] [address] [place] [address] Timothy Kang MD [address] [place] [address] 06/02/2025 12:00 PM EST Office Visit [facility] Rheumatology [address] [place] [address] Valeria Gonzalez MD [address] [facility] [address] [place] [address] documented as of this encounter Procedures Procedure Name Priority Date/Time Associated Diagnosis Comments MULTIPLE LABS Routine 11/28/2020 LIPID PROFILE Routine 11/28/2020 documented in this encounter Results * Lipid profile (11/28/2020) External Cholesterol 108 MANUALLY TRANSCRIBED RESULTS External Cholesterol:Hdl 3 MANUALLY TRANSCRIBED RESULTS External Hdl Cholesterol 35 MANUALLY TRANSCRIBED RESULTS External Ldl (Calc) 45 MANUALLY TRANSCRIBED RESULTS External Triglycerides 138 MANUALLY TRANSCRIBED RESULTS External Very Low Lipoprotein 28 MANUALLY TRANSCRIBED RESULTS us Scanning Provider External LAB BLOOD ORDERABLES Edited Result - Final Performing Organization Address City/[facility]/ZIP Co de Phone Number MANUALLY TRANSCRIBED RESULTS * Multiple labs (11/28/2020) us Scanning Provider External [place] IMAGING Final Result Performing Organization Address City/[facility]/ZIP Co de Phone Number MANUALLY TRANSCRIBED RESULTS documented in this encounter Visit Diagnoses Not on filedocumented in this encounter Additional Health Concerns Infection Onset Date Last Indicated Resolved Time Respiratory Rule-Out 11/05/2024 11/05/2024 025 5:50 AM EDT documented as of this encounter Care Teams Land Survey Technician Relationship Specialty Start Date End Date Shabana Adams MD [address] [place] [address] PCP - General Family Medicine 11/05/24 documented as of this encounter
--- OUTSIDE RECORDS SUMMARY | 2024-12-30 06:36 | XMS_ITS | Encounter Summary ---
Author Organization [employer] [facility] tem Address [id number] [address] [place] [address] Care Team Providers Care Rehab Director Occupational Therapist Name Role Phone Shabana Adams MD Primary Care Provider [phone] Encounter Details Date Type Department Care Team (Late st Contact Info) Description 04/21/2019 Telephone [facility] [address] [place] [phone] Ruperto Cartagena MD [address] [place] [address] Social History Tobacco Use Types Packs/Day Years [...] Cardiology [address] [place] [phone] Timothy Kang MD [address] [place] [address] 06/02/2025 12:00 PM EST Office Visit [facility] Rheumat[facility] [address] [place] [address] Valeria Gonzalez MD [address] [address] documented as of this encounter Visit Diagnoses Not on filedocumented in this encounter Additional Health Concerns Infection Onset Date Last Indicated Resolved Time Respiratory Rule-Out 11/05/2024 11/05/2024 025 5:50 AM EDT documented as of this encounter Care Teams Rehab Director Occupational Therapist Relationship Specialty Start Date End Date Shabana Adams MD [address] [place], [place] [address] PCP - General Family Medicine 11/05/24 documented as of this encounter
--- OUTSIDE RECORDS SUMMARY | 2024-12-30 06:36 | XMS_ITS | Encounter Summary ---
Author Organization [employer] [facility] tem Address [id number] [address] [place] [address] Care Team Providers Care Finished Cigar Maker Name Role Phone Shabana Adams MD Primary Care Provider [phone] Encounter Details Date Type Department Care Team (Late st Contact Info) Description 11/17/2024 [facility] [address] [place] [address] Ling Montiel Social History Tobacco Use Types Packs/Day Years Used Date Smoking Tobacco: Former Cigarettes 1 1974 Smokeless Tobacco: Never Alcohol Use Standard Drinks/Week Comments No 0 (1 standard drink = 0.6 oz pur e alcohol) rare -yearly [facility] Utilities Answer Date Recorded In the past 12 months has th e electric, gas, oil, or water company [...] encounter Miscellaneous Notes * Telephone Encounter - Ling Montiel - 11/17/2024 1:40 PM EDT ----- Message from Timothy Kang MD sent at 11/17/2024 1:00 PM EDT ----- Regarding: Post discharge follow-up Follow-up as patient within 2 weeks from discharge. Thank you * Telephone Encounter - Shabana Curry CMA - 11/17/2024 1:40 PM EDT Pt is still currently admitted as of 11/17/2024. * Telephone Encounter - Shabana Curry CMA - 11/17/2024 1:40 PM EDT Pt is still currently admitted as of 11/18/2024 * Telephone Encounter - Leslee Armenta - 11/17/2024 1:40 PM EDT Pt still admitted * Telephone Encounter - Nessa Oquendo CMA - 11/17/2024 1:40 PM EDT Spoke to . Patient is currently at [facility]. They will call when he is home to schedule documented in this encounter Plan of Treatment Upcoming Encounters Date Type Department Care Team (Late st Contact Info) Description 02/24/2025 11:30 AM EDT Office Visit [facility] [address] [place] [address] Timothy Kang MD [address] [place] [address] 06/02/2025 12:00 PM EST Office Visit [facility] [address] [place] [address] Valeria Gonzalez MD [address] [place] [address] documented as of this encounter Goals Goal Patient Goal Type Associated Problems Recent Progress Patient-Stated? Author <enter goal here> General Yes Juliet Bhatti, JOSE Note: Evaluation of progress towards goal: safe discharge documented as of this encounter Visit Diagnoses Not on filedocumented in this encounter Additional Health Concerns Assessment Noted Time PHQ-9 Depression Total Score: 3 11/11/19 25 11:13 AM EDT documented as of this encounter Care Teams Finished Cigar Maker Relationship Specialty Start Date End Date Shabana Adams MD [address] [place], [place] [address] PCP - General Family Medicine 11/05/24 documented as of this encounter
--- OUTSIDE RECORDS SUMMARY | 2024-12-30 06:36 | XMS_ITS | Encounter Summary ---
[facility] Organization [id number] [address] [place] [address] Care Team Providers Care Acid Concentrator Name Role Phone Shabana Adams MD Primary Care Provider [phone] Encounter Details Date Type Department Care Team (Late st Contact Info) Description 12/30/2023 Telephone [facility] [address] [place] [phone] Cheo Drake MD [address] [place] [phone] Social History Tobacco Use Types Packs/Day Years Used Date Smoking Tobacco: Former Smokeless Tobacco: Never Alcohol Use Standard Drinks/Week Comments No 0 (1 standard drink = 0.6 oz pur e alcohol) [facility] Utilities Answer Date Recorded In the past 12 months has [employer], gas, oil, or water company threatened to [...] encounter Miscellaneous Notes * Telephone Encounter - Cheo Drake MD - 12/30/2023 12:56 PM EDT He is a patient of Dr. Boston. Has retention. Needs a void trial in 1-2 weeks documented in this encounter Plan of Treatment Upcoming Encounters Date Type Department Care Team (Late st Contact Info) Description 02/24/2025 11:30 AM EDT Office Visit [facility] [address] [place] [address] Timothy Kang MD [address] [place] [address] 06/02/2025 12:00 PM EST Office Visit [facility] Rheumatology [address] [place] [address] Valeria Gonzalez MD [address] [facility] [address] [place] [address] documented as of this encounter Visit Diagnoses Not on filedocumented in this encounter Additional Health Concerns Infection Onset Date Last Indicated Resolved Time Respiratory Rule-Out 11/05/2024 11/05/2024 025 5:50 AM EDT documented as of this encounter Care Teams Acid Concentrator Relationship Specialty Start Date End Date Shabana Adams MD [address] [place] [address] PCP - General Family Medicine 11/05/24 documented as of this encounter
--- OUTSIDE RECORDS SUMMARY | 2024-12-30 06:36 | XMS_ITS | Encounter Summary ---
Author Organization [facility] Address [address] [place] [address] Care Team Providers Care Wallpaper Hanger Name Role Phone Shabana Adams MD Primary Care Provider [phone] Shabana Adams MD Unavailable [phone] Carey Mckinney RN Unavailable [phone] Kristal Johnson NP Unavailable [phone] Encounter Details Date Type Department Care Team (Late st Contact Info) Description 06/11/2023 Abstract [facility] [address] [place] [address] Mayela Angeles NP [address] [place], [place] [id number] Social History Tobacco Use Types Packs/Day Years [...] week 12/04/2022 How often do you attend buddhism or baptism serv ices? Never 12/04/2022 Do you belong to any clubs o r organizations such as buddhism groups, unions, fraternal or athletic groups, or [...] Recorded Patient Health Questionnaire-2 Score 0 12/05/2022 [facility] - Occupational [...] place to sleep or slept in a nursing home (including now)? No 12/04/2022 Sex and Gender [...] Visit [facility] [address] [place] [address] Jr. Lefty Palma, DO [address] [place] [address] [place] [address] documented as of this encounter Goals Goal [...] documented as of this encounter Care Teams Wallpaper Hanger Relationship Specialty Start Date End Date Shabana Adams MD [address] [facility] [address] [place], [place] [phone] PCP - General Family Medicine 11/14/22 Shabana Adams MD [address] [facility] [place] [address] PCP - ACO Reach 11/14/22 08/21/23 Kristal Johnson NP [address] [facility] [address] [place], [place] [phone] PCP - ACO Reach 08/22/23 Carey Mckinney RN [address] [facility] [place] [address] Registered Nurse Family Medicine 10/06/23 documented as of this encounter
--- OUTSIDE RECORDS SUMMARY | 2024-12-30 06:37 | XMS_ITS | Encounter Summary ---
Author Organization [facility] Address [address] [place] [address] Care Team Providers Care Dental Appliance Mechanic Name Role Phone Shabana Adams MD Primary Care Provider [phone] Carey Mckinney RN Unavailable [phone] Kristal Johnson TRADER Unavailable [phone] Encounter Details Date Type Department Care Team (Late st Contact Info) Description 12/27/[address] [facility] [address] [place] [address] Brittney Brown LPN Social History Tobacco Use Types Packs/Day Years Used Date Smoking Tobacco: Former Cigarettes 1.5 15 Smokeless Tobacco: Never Alcohol Use Standard Drinks/Week Comments Never 0 (1 standard drink = 0.6 oz pur e alcohol) Caffeine: 1-2 cups/day coffee B1300 Health Literacy Answer Date Recor ded How often do you need to hav e someone help you when you read instructions, pamphlets, or other written material from your doctor or pharmacy? Sometimes 01/29/2024 Humiliation, Afraid, Rape, and Kick questionnair e [...] the phone with family, friends, or neighbors? Once a week 01/29/2024 How often do you get together with friends or re latives? Never 01/29/2024 How often do you attend sabianism or baptism serv ices? Never 01/29/2024 Do you belong to any clubs o r organizations such as sabianism groups, unions, fraternal or athletic groups, or school groups? No 01/29/2024 How often do you attend meet ings of the clubs or organizations you belong to? Never 01/29/2024 Are you , , di vorced, , never , or living with a partner? 01/29/2024 AUDIT-C Answer Date Recorded Q1: How often do you have a drink containing alcohol? Never 01/29/2024 Q2: How many drinks containi ng alcohol do you have on a typical day when you are drinking? Patient does not drink Q3: How often do you have si x or more drinks on one occasion? Never 01/29/2024 Overall Financial Resource Strain (CARDIA) Answe r Date Recorded How hard is it for you to pa y for the very basics like food, housing, medical care, and heating? Not hard at all 01/29/2024 PHQ-2 Answer Date Recorded Patient Health Questionnaire-2 Score 0 10/15/2024 [facility] - Occupational Stress Questionnaire Answer Date Recorded Do you feel stress - tense, restless, nervous, or anxious, or unable to sleep at night because your mind is troubled all the time - these days? To some extent 01/29/2024 Exercise Vital Sign Answer Date Recorde d On average, how many days pe r week do you engage in moderate to strenuous exercise (like a brisk walk)? 0 days 01/29/2024 On average, how many minutes do you engage in exercise at this level? 0 min 01/29/2024 Hunger Vital Sign Answer Date Recorded Within the past 12 months, y ou worried that your food would run out before you got the money to buy more. Never true 01/29/20 24 Within the past 12 months, t he food you bought just didn't last and you didn't have money to get more. Never true 01/29/2024 PRAPARE - Transportation Answer Date Re corded In the past 12 months, has l ack of transportation kept you from medical appointments or from getting medications? No 01/2024 In the past 12 months, has l ack of transportation kept you from meetings, work, or from getting things needed for daily living? No 01/29/2024 Housing Stability Vital Sign Answer Andrew e [...] place to sleep or slept in a usp (including now)? No 12/04/2022 Housing Stability Vital Sign Answer Andrew e Recorded In the last 12 months, was t here a time when you were not able to pay the mortgage or rent on time? No 01/29/2024 Number of Times Moved in the Last Year Not on fi le 01/29/2024 At any time in the past 12 m [facility], were you homeless or living in a usp (including now)? No 01/29/2024 Sex and Gender Information Value Date Recorded Sex Assigned at Male 10/12/2024 3:15 PM EDT Legal Sex Male 8:15 PM EDT Gender Identity Male 09/04/2022 8:15 PM EDT Sexual Orientation Straight 10/12/2024 3: 15 PM EDT documented as of this encounter Progress Notes * Brittney Brown LPN - 12/27/2024 12:59 PM EDT <December 27, 2024, 12:59 - Brittney Brown LPN> Called [facility] and spoke with pts nurse and she states that pt is up walking with his walker he is not taking much orally at this time. He will be going home with his tube feeds they are going to be setting up some time to educate Grace on how to do his tube feeds. No dc date yet. documented in this encounter Plan of Treatment Upcoming Encounters Date Type Department Care Team (Late st Contact Info) Description 03/14/2025 1:30 PM EDT Office Visit [facility] [address] [place] [phone] Jr. Lefty Palma, [address] [facility] [address] [place] [address] documented as of this encounter Goals Goal [...] documented as of this encounter Care Teams Dental Appliance Mechanic Relationship Specialty Start Date End Date Shabana Adams MD [address] [place] [address] PCP - General Family Medicine 11/14/22 Kristal Johnson NP [address] [place] [address] PCP - ACO Reach 08/22/23 Carey Mckinney, JOSE [address] [place] [address] Registered Nurse Family Medicine 10/06/23 documented as of this encounter
--- OUTSIDE RECORDS SUMMARY | 2024-12-30 06:37 | XMS_ITS | Encounter Summary ---
Author Organization [employer] s tem Address [id number] [address] [place] [address] Care Team Providers Care Software Quality Manager Name Role Phone Shabana Adams MD Primary Care Provider [phone] Encounter Details Date Type Department Care Team (Late st Contact Info) Description 12/07/2021 Abstract [facility] [address] [place] [phone] External, Scanning Provider Social History Tobacco Use [...] Exposure Response Date Recorded In the last 10 days, have yo u been in contact with someone who was confirmed or suspected to have Coronavirus/COVID-19? No / Unsure 12/03/2021 10:50 AM EDT documented as of this encounter Plan of Treatment Upcoming Encounters Date Type Department Care Team (Late st Contact Info) Description 02/24/2025 11:30 AM EDT Office Visit [facility] [address] [place] [phone] Timothy Kang MD [address] [place], [place] [phone] 06/02/2025 12:00 PM EST Office Visit [facility] [address] [place] [phone] Valeria Gonzalez MD [address] [facility] [address] [place] [address] documented as of this encounter Procedures Procedure Name Priority Date/Time Associated Diagnosis Comments PROSTATIC SPECIFIC ANTIGEN, DIAGNOSTIC Routine 11/30/2021 documented in this encounter Results * Prostatic specific antigen, diagnostic (11/30/2021) Psa 6.690 MANUALLY TRANSCRIBED RESULTS 11/30/2021 us Scanning Provider External LAB BLOOD ORDERABLES Final Result MANUALLY TRANSCRIBED RESULTS documented in this encounter Visit Diagnoses Not on filedocumented in this encounter Additional Health Concerns Infection Onset Date Last Indicated Resolved Time Respiratory Rule-Out 11/05/2024 11/05/2024 025 5:50 AM EDT documented as of this encounter Care Teams Software Quality Manager Relationship Specialty Start Date End Date Shabana Adams MD [address] [place] [address] PCP - General Family Medicine 11/05/24 documented as of this encounter
--- OUTSIDE RECORDS SUMMARY | 2024-12-30 06:37 | XMS_ITS | Clinical Summary ---
Author Organization [facility] Address [address] [place] [address] Care Team Providers Care Facility Maintenance Helper Name Role Phone Shabana Adams MD Primary Care Provider [phone] Carey Mckinney RN Unavailable [phone] Kristal Johnson STORE ASSISTANT Unavailable [phone] Allergies Active Allergy Reactions Criticality Noted Date Comments Celecoxib Unknown 11/04/2022 Niacin Unknown 11/04/2022 Prasugrel Unknown 11/04/2022 Medications atorvastatin (Lipitor) 80 MG tablet 1 (one) time each day at the same time. Active nitroglycerin (Nitrostat) 0.4 MG SL tablet Sublingual Active warfarin (Coumadin) 5 MG tablet 1 (one) time each day at the same time Managed per coumadin clinic. Active albuterol HFA 90 mcg/act inhalerIndicatio ns:Wheezing Inhale 2 puffs every 4 (four) hours if needed for wheezing 18 g 4 Active Elastic Bandages & Supports (Tubular Stretch Bandage) miscIndications: Edema, unspecified type Size E. Wash and dry legs daily, apply moisturizer. Apply to tubular bandage to bilateral lower legs daily, may remove at bedtime. 1 each 3 4 Active acetaminophen (Tylenol) 325 MG tablet Take 650 mg by mouth every 4 (four) hours if needed for mild pain Active magnesium oxide (Mag-Ox) 400 mg tablet Take 400 mg by mouth in the morning and 400 mg before bedtime. Active aspirin 81 MG EC tablet 1 tablet DAILY (route: oral) 4 Active metoprolol succinate XL (Toprol-XL) 50 MG 24 hr tablet Take 50 mg by mouth Daily Do not crush or chew. Per cardio Active insulin aspart, with niacinamide, (Fiasp FlexTouch) 100 UNIT/ML injectionIndicat ions:Type 2 diabetes mellitus without complication, without long-term current use of insulin (HCC) SSI TID before [id number] 2u, 201-250 4u, 251-300 6u, 301-350 8u, 351-400 10u. SSI [id number] 2u, 251-300 4u, 301-350 6u, 351-400 8u 10 mL 1 4 Active valsartan (Diovan) 40 MG tablet Take 40 mg by mouth in the morning. 4 Active bumetanide (Bumex) 1 MG tablet Take 1 mg by mouth in the morning and 1 mg in the evening. 4 Active dapagliflozin (Farxiga) 10 MG Take 10 mg by mouth in the morning. 4 Active Continuous Glucose Sensor (FreeStyle Cathy 3 Sensor) misc 1 Device every 14 (fourteen) days Pt to check bs 4 x daily and use sliding scale insulin her scale. Active Continuous Glucose Manager Department (FreeStyle Cathy 3 [place]) device Act matthew spironolactone (Aldactone) 25 MG tablet Take 12.5 mg by mouth Daily Per CHF clinic Active sucralfate (Carafate) 1 g tabletIndication s:Gastric ulcer, unspecified chronicity, unspecified whether gastric ulcer hemorrhage or perforation present Take 1 tablet (1 g) by mouth in the morning and 1 tablet (1 g) at noon and 1 tablet (1 g) in the evening and 1 tablet (1 g) before bedtime. Take before meals. 120 tablet 1 5 Active pantoprazole (ProtoNix) 40 MG EC tabletIndication s:Gastric ulcer, unspecified chronicity, unspecified whether gastric ulcer hemorrhage or perforation present Take 1 tablet (40 mg) by mouth in the morning. Take before meals. Do not crush, chew, or split.. 60 tablet 1 5 Active PARoxetine (Paxil) 20 MG tabletIndication s:Anxiety Take 1 tablet (20 mg) by mouth in the morning. 90 tablet 1 5 02/14/20 25 Active Accu-Chek Softclix Lancets lancetsIndicatio ns:Type 2 diabetes mellitus without complication, without long-term current use of insulin ([facility]) use 1 LANCET to TEST BLOOD SUGAR QID before meals and HS 100 each 1 5 Active Insulin Pen Needle (Safety Pen [place]) 30G X 8 MM miscIndications: Type 2 diabetes mellitus without complication, without long-term current use of insulin ([facility]) 1 Needle in the morning and 1 Needle at noon and 1 Needle in the evening and 1 Needle before bedtime. 100 each 1 5 Active losartan (Cozaar) 25 MG tablet Take 25 mg by mouth Daily Active Ferrous Sulfate Dried ER 160 (50 Fe) MG tablet controlled-relea se Take 2 tablets by mouth Daily Active azithromycin (Zithromax) 250 MG tabletIndication s:Acute left otitis media,Bronchitis Take 2 tablets (500mg) by mouth on day 1, then 1 tablet (250mg) by mouth on days 2-5. 6 tablet 5 Active Active Problems Problem Noted Date Diagnosed Date Acute traumatic pain 08/26/2024 ABLA (acute blood loss anemia) 08/25/2024 Fall at home, initial encounter 08/25/2024 Hemothorax, traumatic, initial encounter 025 Hyperglycemia 08/25/2024 Thrombocytopenia 08/25/2024 Warfarin-induced coagulopathy ([facility]) 08/26/19 25 Rib fractures 08/24/2024 Urinary incontinence 03/16/2024 Overview (10/14/2024): 03/16/24: Urinary incontinence. Multifactorial. He was given a specimen cup to check a urine for culture. Additionally samples of Gemtesa given Occult blood positive stool 12/30/2023 Hypomagnesemia 12/27/2023 E coli bacteremia 12/27/2023 Supratherapeutic INR 12/26/2023 Hypokalemia 12/26/2023 Hydroureter 12/26/2023 LOUISA (acute kidney injury) 12/26/2023 Assessment & Plan (01/29/2024 10:29 PM EDT): Labs 01/29/24. Hydronephrosis 12/26/2023 Acute on chronic diastolic congestive heart fail ure 12/26/2023 Assessment & Plan (01/29/2024 10:28 PM EDT): Stable at present. He diuresed 50#/24L. Continue lasix. He had stopped taking at home but now promises to keep taking. EF 40%. 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 A1c 12/28/23. 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 06/23/2023 Personal history of nicotine dependence 06/23/19 Chronic kidney disease 06/23/2023 Personal history of malignant neoplasm of bladde r 06/23/2023 Problems related to health literacy 06/23/2023 Heart failure, unspecified 06/23/2023 Unspecified osteoarthritis, unspecified site 06/2023 Presence of coronary angioplasty implant and gra ft 12/03/2022 Actinic keratosis 11/04/2022 Benign prostatic hyperplasia without urinary obs truction 11/04/2022 Bladder cancer 11/04/2022 Coronary arteriosclerosis in [place] artery 11/04 Elevated PSA 11/04/2022 Foot callus 11/04/2022 History of myocardial infarction 11/04/2022 Morbid obesity 11/04/2022 Nephrolithiasis 11/04/2022 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 E. coli UTI 02/05/2021 Overview (01/29/2024): Added automatically from request for surgery [id number] Peripheral angiopathy due to type 2 diabetes karey litus 07/20/2019 History of stroke without residual deficits 01/22 Artificial knee joint present 11/06/2017 Cerebral infarction 03/31/2014 Coronary artery disease invo lving [place] coronary artery of [place] heart without angina pectoris 05/15/2010 Assessment & Plan (01/29/2024 10:28 PM EDT): No angina. Hyperlipidemia 01/02/2006 Assessment & Plan (01/29/2024 10:30 PM EDT): Continue lipitor. Resolved Problems Problem Noted Date Diagnosed Date Resolved Date Neck pain 11/07/2023 12/08/2023 Skin ulcer of left lower leg with fat layer exposed 12/03/2022 12/05/2022 Impaired fasting glucose 11/04/2022 Heart disease 11/04/2022 12/05/2022 Decubitus ulcer of right leg, stage 1 06/23/2022 12/05/2022 Pure hypercholesterolemia 02/17/2019 Encounters Date Type Department Care Team Description 12/27/2024 Patient Outreach [facility] [address] [place] [phone] Brittney Brown LPN 12/20/2024 Patient Outreach [facility] [address] [place] [address] Brittney Brown, CODING SPEC 12/10/2024 Patient Outreach [facility] [address] [place] [address] Brittney Brown, CODING SPEC 12/07/2024 Telephone [facility] [address] [facility] [place] [phone] Ayaka Bernard MA 12/02/2024 Patient Outreach [facility] [address] [place] [address] Carey Mckinney RN 11/29/2024 Patient Outreach [facility] [place] [address] [place] [address] Brittney Brown, CODING SPEC 11/22/2024 Patient Outreach [facility] [place] [address] [place] [address] Brittney Brown, CODING SPEC 11/18/2024 Travel 11/10/2024 Telephone [facility] [address] [facility] [place] [phone] Shabana Adams MD 11/02/2024 12:00 PM EDT Office Visit [facility] [address] [facility] [place] [phone] Kristal Johnson NP Acute left otitis media (Primary Dx); Bronchitis 11/02/2024 Patient Outreach [facility] [address] [place] [address] Carey Mckinney, JOSE 11/02/2024 Bamboo flowsheet [facility] [address] [facility] [place] [phone] Kristal Johnson NP 11/02/2024 Travel 10/25/2024 Patient Outreach [facility] [address] [place] [address] Carye Mckinney JOSE 10/22/2024 Patient Outreach [place] [address] [place] [address] Carey Mckinney, JOSE 10/20/2024 Patient Outreach [address] [place] [address] Carey Mckinney, JOSE 10/19/2024 Patient Outreach [address] [place] [place] [address] Carey Mckinney RN 10/18/2024 Results Follow-Up [facility] [address] [facility] [place] [phone] Shabana Adams MD 10/15/2024 1:00 PM EDT Ancillary Procedure [facility] [address] [address] Pleural effusion, bilateral 10/15/2024 11:30 AM EDT Office Visit [facility] [address] [facility] [place] [phone] Shabana Adams MD Pleural effusion, bilateral (Primary Dx); Anemia, unspecified type; Type 2 diabetes mellitus with diabetic neuropathy, with long-term current use of insulin (HCC); Multiple closed fractures of ribs of both sides with routine healing, subsequent encounter; Paroxysmal atrial fibrillation (HCC); Pressure injury of left buttock, stage 1; Malignant neoplasm of bladder, unspecified (HCC); Type 2 diabetes mellitus with diabetic chronic kidney disease (HCC); Chronic kidney disease, stage 3a (CMS-HCC) 10/15/2024 Bamboo flowsheet [facility] [address] [place] [phone] Shabana Adams MD 10/15/2024 Travel 10/13/2024 Telephone [facility] [facility] [place] [phone] Shabana Adams MD 10/12/2024 Travel 10/12/2024 Patient Outreach [place] [address] [place] [address] Carey Mckinney, RN 10/12/2024 Patient Outreach [facility] [address] [place] [address] Carey Mckinney RN 10/12/2024 Telephone [facility] [address] [facility] [place] [phone] Shabana Adams MD 10/11/2024 Telephone [facility] [address] [facility] [place] [phone] Shabana Adams MD 10/06/2024 Patient Outreach [facility] [address] [place] [address] Brittney Brown LPN 10/04/2024 Telephone [facility] [address] [facility] [place] [phone] Shabana Adams MD 09/30/2024 Patient Outreach [facility] [address] [place] [address] Brittney Brown, CODING SPEC from Last 3 Months Immunizations Immunization Administration Dates Next Due Influenza, High Dose Seasona l, Preservative Free 04/16/2023,03/29/2022,04/30/2021,04/24,05/07/2019,04/14/2015 Influenza, High-dose Seasona l, Quadrivalent, Preservative Free 04/16/2023,03/29/2022,04/30/2021,04/24,05/07/2019 Influenza, injectable, quadr ivalent, preservative free 04/08/2017 Influenza, trivalent, adjuvanted 04/05/2024 Moderna Bivalent Booster Vaccination 03/29/2022 Moderna SARS-CoV-2 50mcg/0.5mL Booster Moderna SARS-CoV-2 Vaccination ,08/17/2020,07/21/2020,07/20 Pneumococcal Conjugate PCV 13 11/28/2020 Pneumococcal Polysaccharide PPSV23 09/04/2015 SARS-COV-2 (COVID-19) vaccin e, mRNA, spike protein, LNP, PF, 50 mcg/0.5 mL 04/16/2023 SARS-COV-2 (COVID-19) vaccin e, mRNA, spike protein, LNP, bivalent, preservative free, 30 mcg/0.3 mL dose, yuliet-sucrose formulation 03/29/2022 Family History Medical History Relation Name Comments No Known Problems Daughter 1 Heart disease Father Zachariah Kim Hypertension Father Zachariah Kim Cancer Mother Savannah Kim Diabetes Mother Savannah Kim No Known Problems Sister 2 No Known Problems Son 1 Relation Name Status Comments Daughter 1 Father Zachariah Kim Mother Savannah Kim Sister 2 Son 1 Social History Tobacco Use Types Packs/Day Years Used Date Smoking Tobacco: Former Cigarettes 1.5 15 Smokeless Tobacco: Never Tobacco Cessation:Counseling Given: Not Answered Alcohol Use Standard Drinks/Week Comments Never 0 [...] Never 01/29/2024 How often do you attend sabianist or mandaen serv ices? Never 01/29/2024 Do you belong to any clubs o r organizations such as sabianist groups, unions, fraternal or athletic groups, or [...] Recorded Patient Health Questionnaire-2 Score 0 10/15/2024 [facility]ational Stress Questionnaire Answer Date Recorded [...] place to sleep or slept in a chcf (including now)? No 12/04/2022 Housing Stability Vital Sign Answer Andrew e Recorded In the last 12 months, was t here a time when you were not able to pay the mortgage or rent on time? No 01/29/2024 Number of Times Moved in the Last Year Not on fi le 01/29/2024 At any time in the past 12 m [facility], were you homeless or living in a chcf (including now)? No 01/29/2024 Sex and Gender Information Value Date Recorded Sex Assigned at Male 10/12/2024 3:15 PM EDT Legal Sex Male 8:15 PM EDT Gender Identity Male 09/04/2022 8:15 PM EDT Sexual Orientation Straight 10/12/2024 3: 15 PM EDT Last Filed Vital Signs Vital Sign Reading Time Taken Comments Blood Pressure 122/78 11/02/2024 12:05 PM EDT Pulse 78 11/02/2024 12:05 PM EDT Temperature 37.1 C (98.8 F) 11/02/2024 12:05 PM EDT Respiratory Rate 18 11/02/2024 12:05 PM EDT Oxygen Saturation 98% 11/02/2024 12:05 PM EDT Inhaled Oxygen Concentration - - Weight 97.5 kg (215 lb) 11/02/2024 12:05 PM EDT Height 182.9 cm (6') 11/02/2024 12:05 PM EDT Body Mass Index 29.16 11/02/2024 12:05 PM EDT Plan of Treatment Upcoming Encounters Date Type Department Care Team (Late st Contact Info) Description 03/14/2025 1:30 PM EDT Office Visit [facility] [address] [place] [address] Jr. Lefty Palma, DO [address] [place] [address] Health Maintenance Due Date Last Done Comments Diabetes: Urine Protein Screening 12/06/2023 023, 12/01/2020 Diabetes: Retinopathy Screening 04/16/2024 04/16/2022, 04/12/2020, 03/03/2019 Diabetes: Hemoglobin A1C 11/25/2024 025, 06/09/2024, 12/28/2023, Additional history exists Influenza Vaccine (#1) 2025 4, 04/16/2023, 04/16/2023, Additional history exists Pneumococcal Vaccine: 65+ Years Completed 1, 09/04/2015 Goals Goal Patient Goal Type Associated Problems Recent Progress Patient-Stated? Author Help patient manage antidepressant medication Care Plan Patient on antidepressant monitoring plan Radha Welch Procedures Procedure Name Priority Date/Time Associated Diagnosis Comments XR CHEST 2 VIEWS Routine 10/15/2024 1:07 PM EDT Pleural effusion, bilateral LIPID PANEL Routine 10/15/2024 12:14 PM EDT Type 2 diabetes mellitus with diabetic neuropathy, with long-term current use of insulin (HCC) COMPREHENSIVE METABOLIC PANEL Routine 10/15/2024 12:14 PM EDT Type 2 diabetes mellitus with diabetic neuropathy, with long-term current use of insulin (HCC) CBC (INCLUDES DIFF/PLT) Routine 10/15/2024 12:14 PM EDT Anemia, unspecified type HEMOGLOBIN A1C Routine 06/09/2024 10:40 AM EST Type 2 diabetes mellitus without complication, without long-term current use of insulin (HCC) MICROALBUMIN / CREATININE URINE RATIO Routine 12/05/2022 1:54 PM EDT Type 2 diabetes mellitus without complication, without long-term current use of insulin (HCC) COLOR FUNDUS PHOTOGRAPHY - OU - BOTH EYES Routine 04/16/2022 12:00 PM EDT from Last 3 Months or Most Recently Relevant to Health Maintenance Results * XR chest 2 views (10/15/2024 1:07 PM EDT) Anatomical Region Laterality Modality Chest Radiographic Anjelica ging 10/15/2024 1:50 PM EDT Narrative 10/15/2024 1:50 PM EDT Exam: XR CHEST 2 VIEWS Reason for exam: Bilateral pleural effusions and right rib fractures Prior comparative studies: None Findings: Lungs are well expanded. There is slight platelike opacity in the right base and blunting of the right costophrenic angle. Left lung appears clear. Heart is mildly enlarged. There are bridging syndesmophytes throughout the thoracic spine. IMPRESSION: 1. Platelike atelectasis in the right base with small right pleural effusion. Appearance is slightly more pronounced than on the prior study. 2. Mild cardiomegaly. 3. Appearance in the thoracic spine suggesting ankylosing spondylitis. Dictated on: 10/15/2024 11:48 AM This report has been electronically signed and approved by the interpreting radiologist. Procedure Note Lenin Ulloa MD - 10/15/2024 Exam: XR CHEST 2 VIEWS Reason for exam: Bilateral pleural effusions and right rib fractures Prior comparative studies: None Findings: Lungs are well expanded. There is slight platelike opacity inthe right base and blunting of the right costophrenic angle. Left lungappears clear. Heart is mildly enlarged. There are bridging syndesmophytesthroughout the thoracic spine. IMPRESSION: 1. Platelike atelectasis in the right base with small right pleuraleffusion. Appearance is slightly more pronounced than on the priorstudy. 2. Mild cardiomegaly. 3. Appearance in the thoracic spine suggesting ankylosing spondylitis. Dictated on: 10/15/2024 11:48 AM This report has been electronically signed and approved by theinterpreting radiologist. us Shabana Adams MD IMG XR PROCEDURES Final Resul t * (ABNORMAL) CBC and differential (10/15/2024 12:14 PM EDT) Pathologist [facility] WHITE BLOOD CELL COUNT 9.0 3.8 - 10.8 Thousand/u L [facility] RED BLOOD CELL COUNT 5.00 4.20 - 5.80 Million/uL [facility] HEMOGLOBIN 12.7(L) 13.2 - 17.1 g/dL [facility] HEMATOCRIT 40.7 38.5 - 50.0 % [facility] MCV 81.4 80.0 - 100.0 fL [facility] MCH 25.4(L) 27.0 - 33.0 pg [facility] MCHC 31.2(L) 32.0 - 36.0 g/dL [facility] Comment: For adults, a slight decrease in the calculated MCHC value (in the range of 30 to 32 g/dL) is most likely not clinically significant; however, it should be interpreted with caution in correlation with other red cell parameters and the patient's clinical condition. RDW 16.0(H) 11.0 - 15.0 % [facility] PLATELET COUNT 174 140 - 400 Thousand/u L [facility] MPV 9.8 7.5 - 12.5 fL [facility] ABSOLUTE NEUTROPHILS 6,894 1,500 - 7,800 cells/uL [facility] ABSOLUTE LYMPHOCYTES 1,458 850 - 3,900 cells/uL [facility] ABSOLUTE MONOCYTES 531 200 - 950 cells/uL [facility] ABSOLUTE EOSINOPHILS 90 15 - 500 cells/uL [facility] ABSOLUTE BASOPHILS 27 0 - 200 cells/uL [facility] NEUTROPHILS 76.6 % [facility] LYMPHOCYTES 16.2 % [facility] MONOCYTES 5.9 % [facility] EOSINOPHILS 1.0 % [facility] BASOPHILS 0.3 % [facility] Blood Venous blood specimen / Unknown 10/15/2024 12:14 PM EDT 10/15/2024 12:15 PM EDT Narrative [facility] - 10/16/2024 3:43 AM EDT MULTIPLE COLLECTION TIMES FOR SAME TEST TYPE. Resulting Agency Comment Performing Organization Information Site ID: QPT Name: [facility] Address: [address] [place] [address], [address] [place] [phone] Director: Grupo Singer MD us Shabana Adams MD LAB BLOOD ORDERABLES Final Re sult [facility] * (ABNORMAL) Lipid panel (10/15/2024 12:14 PM EDT) CHOLESTEROL, TOTAL 110 <200 mg/dL [facility] HDL CHOLESTEROL 33(L) > OR = 40 mg/dL [facility] TRIGLYCERIDES 129 <150 mg/dL [facility] LDL CHOLESTEROL 56 mg/dL (calc) [facility] Comment: Reference range: <100 Desirable range <100 mg/dL for primary prevention; <70 mg/dL for patients with CHD or diabetic patients with > or = 2 CHD risk factors. LDL-C is now calculated using the Isis calculation, which is a validated novel method providing better accuracy than the Friedewald equation in the estimation of LDL-C. Bebeto JOHNSTON et al. JAYDE. 2013;310(19): 9444-3992 (http://education.Bizo.UTILICASE/faq/SBO858) CHOL/HDLC RATIO 3.3 <5.0 (calc) [facility] NON HDL CHOLESTEROL 77 <130 mg/dL (calc) [facility] Comment: For patients with diabetes plus 1 major ASCVD risk factor, treating to a non-HDL-C goal of <100 mg/dL (LDL-C of <70 mg/dL) is considered a therapeutic option. Blood Venous blood specimen / Unknown 10/15/2024 12:14 PM EDT 10/15/2024 12:15 PM EDT Narrative [facility] - 10/16/2024 3:43 AM EDT MULTIPLE COLLECTION TIMES FOR SAME TEST TYPE. Resulting Agency Comment Performing Organization Information Site ID: QPT Name: [email or web address] Address: [address] [place] [address], [address] [place] [phone] Director: Grupo Singer MD Shabana Adams MD LAB BLOOD ORDERABLES Final Re sult [facility] * (ABNORMAL) Comprehensive metabolic panel (10/15/2024 12:14 PM EDT) Pathologist [facility] Glucose 176(H) 65 - 99 mg/dL [facility] Comment: Fasting reference interval For someone without known diabetes, a glucose value >125 mg/dL indicates that they may have diabetes and this should be confirmed with a follow-up test. BUN 36(H) 7 - 25 mg/dL [facility] Creatinine 1.50(H) 0.70 - 1.28 mg/dL [facility] EGFR 47(L) > OR = 60 mL/min/1.7 3m2 [facility] BUN/CREATININE RATIO 24(H) 6 - 22 (calc) [facility] Sodium 141 135 - 146 mmol/L [facility] Potassium, Bld 3.8 3.5 - 5.3 mmol/L [facility] Chloride 103 98 - 110 mmol/L [facility] Carbon Dioxide 26 20 - 32 mmol/L [facility] Calcium 8.8 8.6 - 10.3 mg/dL [facility] PROTEIN, TOTAL 7.9 6.1 - 8.1 g/dL [facility] ALBUMIN 3.5(L) 3.6 - 5.1 g/dL [facility] GLOBULIN 4.4(H) 1.9 - 3.7 g/dL (calc) [facility] ALBUMIN/GLOBULIN RATIO 0.8(L) 1.0 - 2.5 (calc) [facility] BILIRUBIN, TOTAL 0.7 0.2 - 1.2 mg/dL [facility] ALKALINE PHOSPHATASE 193(H) 35 - 144 U/L [facility] AST 31 10 - 35 U/L [facility] ALT 43 9 - 46 U/L [facility] Blood Venous blood specimen / Unknown 10/15/2024 12:14 PM EDT 10/15/2024 12:15 PM EDT Narrative [facility] - 10/16/2024 3:43 AM EDT MULTIPLE COLLECTION TIMES FOR SAME TEST TYPE. Resulting Agency Comment Performing Organization Information Site ID: QPT Name: [facility] Address: [address] [place] [address], [address] [place] [phone] Director: Grupo Singer MD Shabana Adams MD LAB BLOOD ORDERABLES Final Re sult [facility] * (ABNORMAL) Hemoglobin A1c (06/09/2024 10:40 AM EST) Hemoglobin A1C 7.4(H) <5.7 % of total Hgb [facility] Comment: For someone without known diabetes, a hemoglobin A1c value of 6.5% or greater indicates that they may have diabetes and this should be confirmed with a follow-up test. For someone with known diabetes, a value <7% indicates that their diabetes is well controlled and a value greater than or equal to 7% indicates suboptimal control. A1c targets should be individualized based on duration of diabetes, age, comorbid conditions, and other considerations. Currently, no consensus exists regarding use of hemoglobin A1c for diagnosis of diabetes for children. Blood Venous blood specimen / Unknown 06/09/2024 10:40 AM EST 06/09/2024 10:41 AM EST Narrative Resulting Agency Comment Performing Organization Information Site ID: QPT Name: [email or web address] Address: [address] [place] [address], [address] [place] [phone] Director: Grupo Singer MD us Kristal Johnson STORE ASSISTANT LAB BLOOD ORDERABLES Fi nal Result Performing Organization Address [facility] Co de Phone Number [facility] * Microalbumin / creatinine urine ratio (12/05/2022 1:54 PM EDT) CREATININE, RANDOM URINE 177 20 - 320 mg/dL [facility] ALBUMIN, URINE 3.6 See Note: mg/dL [facility] Comment: Reference Range: Reference Range Not established ALBUMIN/CREATININE RATIO, RANDOM URINE 20 <30 mcg/mg creat [facility] Comment: The ADA defines abnormalities in albumin excretion as follows: Albuminuria Category Result (mcg/mg creatinine) Normal to Mildly increased <30 Moderately increased 30-299 Severely increased > OR = 300 The ADA recommends that at least two of three specimens collected within a 3-6 month period be abnormal before considering a patient to be within a diagnostic category. Urine Urine specimen obtained by clean catch procedure / Unknown 12/05/2022 1:54 PM EDT 12/05/2022 1:55 PM EDT Narrative Resulting Agency Comment Performing Organization Information Site ID: [email or web address] Name: [email or web address] Address: [address] [place] [address], [address] [place] [id number] Director: Grupo Singer MD us Jumana Huston STORE ASSISTANT LAB URINE ORDERABLES Fi nal Result Performing Organization Address [facility] Co de Phone Number [facility] * Color Fundus Photography - OU - Both Eyes (04/16/2022 12:00 PM EDT) Anatomical Region Laterality Modality Head Fundus Photograp hy 04/16/2022 12:0 0 PM EDT Narrative 04/16/2022 12:00 PM EDT PERFORMED AT [facility] LOCATION:[id number] [facility] Procedure Note CONVERSION, GENERIC - 11/06/2022 PERFORMED AT [facility] LOCATION:[id number] [facility] Shabana Adams MD OPHTH PHOTOGRAPHY Final Resul t from Last 3 Months or Most Recently Relevant to Health Maintenance Additional Health Concerns Active Problems Noted Date Diagnosed Date Patient on antidepressant monitoring plan 2022 Insurance [employer] [place] Care Teams Facility Maintenance Helper Relationship Specialty Start Date End Date Shabana Adams MD [address], [place] [id number] PCP - General Family Medicine 11/14/22 Kristal Johnson NP [address], [place] [id number] PCP - ACO Reach 08/22/23 Carey Mckinney, RN [address] [place] [address] Registered Nurse Family Medicine 10/06/23
--- OUTSIDE RECORDS SUMMARY | 2024-12-30 06:37 | XMS_ITS | Encounter Summary ---
Author Organization [facility] Address [address] [facility] [place] [address] Care Team Providers Care Review Assistant Name Role Phone Shabana Adams MD Primary Care Provider [phone] Carey Mckinney RN Unavailable [phone] Kristal Johnson BARTENDERS Unavailable [phone] Encounter Details Date Type Department Care Team (Late st Contact Info) Description 10/18/2024 Results Follow-Up [facility] [address] [place] [address] Shabana Adams MD [address] [place], [place] [id number] Social History Tobacco Use Types Packs/Day Years [...] Never 01/29/2024 How often do you attend orthodoxy or sikh serv ices? Never 01/29/2024 Do you belong to any clubs o r organizations such as orthodoxy groups, unions, fraternal or athletic groups, or [...] Recorded Patient Health Questionnaire-2 Score 0 10/15/2024 [facility] [place] Occupat ional Health - Occupational Stress [...] place to sleep or slept in a correction (including now)? No 12/04/2022 Housing Stability Vital Sign Answer Andrew e Recorded In the last 12 months, was t here a time when you were not able to pay the mortgage or rent on time? No 01/29/2024 Number of Times Moved in the Last Year Not on fi le 01/29/2024 At any time in the past 12 m [facility], were you homeless or living in a correction (including now)? No 01/29/2024 Sex and Gender [...] PM EDT Office Visit [facility] [address] [place] [address] Jr. Lefty Palma, DO [address] [place] [address] [place] [address] documented as of this encounter Goals Goal Patient Goal Type Associated Problems Recent Progress Patient-Stated? Author Help patient manage antidepressant medication Care Plan Patient on antidepressant monitoring plan Radha Welch documented as of this encounter Visit Diagnoses Not on filedocumented in this encounter Additional Health Concerns Active Problems Noted Date Diagnosed Date Patient on antidepressant monitoring plan 2022 Assessment Noted Time PHQ-9 Depression Total Score: 0 12/08/19 24 9:00 AM EDT documented as of this encounter Care Teams Review Assistant Relationship Specialty Start Date End Date Shabana Adams MD [address] [place], [place] [phone] PCP - General Family Medicine 11/14/22 Kristal Johnson NP [address] [place] [address] PCP - ACO Reach 08/22/23 Carey Mckinney, JOSE [address] [facility] [place] [address] Registered Nurse Family Medicine 10/06/23 documented as of this encounter
--- OUTSIDE RECORDS SUMMARY | 2024-12-30 06:37 | XMS_ITS | Encounter Summary ---
Author Organization [facility] Address [id number] [address] [place] [address] Care Team Providers Care Director Operations Broadcast Name Role Phone Shabana Adams MD Primary Care Provider [phone] Reason for Visit * Reason Onset Date Comments Med Refill 03/25/2022 Encounter Details Date Type Department Care Team (Late st Contact Info) Description 03/25/2022 Refill [facility] [address] [place] [id number] Lionel Hernandez PA-C [address] [place] [address] Med Refill Social History Tobacco Use Types [...] have Coronavirus / COVID-19? No / Unsure 03/14/2022 10:26 AM EDT documented as of this encounter Plan of Treatment Upcoming Encounters Date Type Department Care Team (Late st Contact Info) Description 02/24/2025 11:30 AM EDT Office Visit [facility] [address] [place] [id number] Timothy Kang MD [address] [place] [address] 06/02/2025 12:00 PM EST Office Visit [facility] [address] [place] [address] Valeria Gonzalez MD [address] [facility] [address] [place] [address] documented as of this encounter Results * (ABNORMAL) CBC auto differential (03/29/2022 1:51 PM EDT) [facility] White Blood Cells 7.5 4.0 - 11.0 X10E9/L 03/29/2022 5:38 PM EDT [facility] RBC count 5.57 4.10 - 5.70 X10E12/L 03/29/2022 5:38 PM EDT [facility] Hemoglobin 15.4 13.0 - 17.0 g/dL 03/29/2022 5:38 PM EDT [facility] Hematocrit 45.9 39 - 49 % 03/29/2022 5:38 PM EDT [facility] MCV 82 80 - 100 fL 03/29/2022 5:38 PM EDT [facility] MCH 27.6 27 - 34 pg 03/29/2022 5:38 PM EDT [facility] MCHC 33.5 32 - 36 g/dL 03/29/2022 5:38 PM EDT [facility] RDW 15.4(H) 11.5 - 15.0 % 03/29/2022 5:38 PM EDT [facility] Platelets 147(L) 150 - 450 X10E9/L 03/29/2022 5:38 PM EDT [facility] MPV 8.1 7 - 12 fL 03/29/2022 5:38 PM EDT [facility] % neutrophils 64.5 % 03/29/2022 5:38 PM EDT [facility] % lymphocytes 25.2 % 03/29/2022 5:38 PM EDT [facility] % monocytes 7.9 % 03/29/2022 5:38 PM EDT [facility] % eosinophils 1.8 % 03/29/2022 5:38 PM EDT [facility] % Basophils 0.6 % 03/29/2022 5:38 PM EDT [facility] Neutrophils Absolute (A) 4.8 1.5 - 6.6 X10E9/L 03/29/2022 5:38 PM EDT [facility] Lymphocytes Absolute 1.9 1.0 - 3.5 X10E9/L 03/29/2022 5:38 PM EDT [facility] Monocytes Absolute 0.6 0 - 0.9 X10E9/L 03/29/2022 5:38 PM EDT [facility] Eosinophils Absolute 0.1 0.0 - 0.4 X10E9/L 03/29/2022 5:38 PM EDT [facility] Basophils Absolute 0.0 0.0 - 0.2 X10E9/L 03/29/2022 5:38 PM EDT [facility] Blood / Unknown 03/29/2022 1 :51 PM EDT 03/29/2022 1:52 PM EDT us Lionel Hernandez PA-C LAB BLOOD ORDERABLES Final Result [facility] [address] [place] [address] * Magnesium (03/29/2022 1:51 PM EDT) [facility] Magnesium 1.9 1.8 - 2.6 mg/dL 03/29/2022 5:50 PM EDT [facility] PLASMA 03/29/2022 1:51 PM EDT 03/29/2022 1:52 PM EDT us Lionel Hernandez PA-C LAB BLOOD ORDERABLES Final Result [facility] [address] [place] [address] * Comprehensive metabolic panel (03/29/2022 1:51 PM EDT) Pathologist [facility] Sodium 142 134 - 146 mmol/L 03/29/2022 5:50 PM EDT [facility] Potassium, Bld 3.9 3.5 - 5.0 mmol/L 03/29/2022 5:50 PM EDT [facility] Chloride 105 98 - 109 mmol/L 03/29/2022 5:50 PM EDT [facility] CO2 27 22 - 32 mmol/L 03/29/2022 5:50 PM EDT [facility] Anion gap 10 5 - 15 mmol/L 03/29/2022 5:50 PM EDT [facility] BUN 14 5 - 27 mg/dL 03/29/2022 5:50 PM EDT [facility] Creatinine 0.63 0.60 - 1.30 mg/dL 03/29/2022 5:50 PM EDT [facility] Comment:METHOD TRACEABLE TO IDMS STANDARD Glucose 95 65 - 99 mg/dL 03/29/2022 5:50 PM EDT [facility] Calcium 9.1 8.5 - 10.5 mg/dL 03/29/2022 5:50 PM EDT [facility] Total Protein 7.5 6.0 - 8.0 g/dL 03/29/2022 5:50 PM EDT [facility] Albumin 4.3 3.2 - 5.3 g/dL 03/29/2022 5:50 PM EDT [facility] Alkaline Phosphatase 107 39 - 130 U/L 03/29/2022 5:50 PM EDT [facility] AST 16 0 - 41 U/L 03/29/2022 5:50 PM EDT [facility] ALT 24 0 - 40 U/L 03/29/2022 5:50 PM EDT [facility] Total bilirubin 0.8 0.3 - 1.2 mg/dL 03/29/2022 5:50 PM EDT [facility] eGFR (CKD-EPI)non-rac e dependent >90 >59 ml/min/1.7 3sq.m 03/29/2022 5:50 PM EDT [facility] Comment: Reported eGFR is based on the CKD-EPI 2020 equation that does not use a race coefficient. 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
--- OUTSIDE RECORDS SUMMARY | 2024-12-30 06:37 | XMS_ITS | Encounter Summary ---
Author Organization [facility] Address [address] [place] [address] Care Team Providers Care Clothing Man Name Role Phone Shabana Adams MD Primary Care Provider [phone] Carey Mckinney RN Unavailable [phone] Kristal Johnson [employer]ION[employer] CL[employer]ICAL RESEARCH ASSOCIATE Unavailable [phone] Encounter Details Date Type Department Care Team (Late st Contact Info) Description 10/13/2024 Telephone [facility] [address] [place] [address] Shabana Adams MD [address] [place] [address] Social History Tobacco Use Types [...] Never 01/29/2024 How often do you attend confucianist or congregational serv ices? Never 01/29/2024 Do you belong to any clubs o r organizations such as confucianist groups, unions, fraternal or athletic groups, or [...] Recorded Patient Health Questionnaire-2 Score 0 10/15/2024 [facility] ional Health - Occupational [...] any time in the past 12 m [facility], were you homeless or living in a usp (including now)? No 01/29/2024 Sex and Gender Information Value Date Recorded Sex Assigned at Male 10/12/2024 3:15 PM EDT Legal Sex Male 8:15 PM EDT Gender Identity Male 09/04/2022 8:15 PM EDT Sexual Orientation Straight 10/12/2024 3: 15 PM EDT documented as of this encounter Functional Status * Over the past 2 weeks, how often have you been bothered by any of the following problems? Question Answer Date of Assessment Author Little interest or pleasure in doing things Not at all 10/15/2024 11:37 AM EDT Hattie Dixon MA Feeling down, depressed, or hopeless Not at all 10/15/2024 11:37 AM EDT Hattie Dixon MA Patient Health Questionnaire-2 Score 0 10/15/2024 11:37 AM EDT Alanna Dixon MA documented as of this encounter Miscellaneous Notes * Telephone Encounter - Jaymie Nathaniel - 10/13/2024 11:40 AM EDT Elly with [facility] calling to report- comp eval Friday and will continue PT. [phone] if any ?s documented in this encounter Plan of Treatment Upcoming Encounters Date Type Department Care Team (Late st Contact Info) Description 03/14/2025 1:30 PM EDT Office Visit [facility] [address] [place] [phone] Jr. Lefty Palma, DO [address] [place] [address] documented as of this encounter Goals Goal [...] documented as of this encounter Care Teams Clothing Man Relationship Specialty Start Date End Date Shabana Adams MD [address] [place] [address] PCP - General Family Medicine 11/14/22 Kristal Johnson NP [address] [place] [address] PCP - ACO Reach 08/22/23 Carey Mckinney, JOSE [address] [place] [address] Registered Nurse Family Medicine 10/06/23 documented as of this encounter
--- OUTSIDE RECORDS SUMMARY | 2024-12-30 06:37 | XMS_ITS | Clinical Summary ---
Author Organization [employer] tem Address [id number] [address] [place] [address] Care Team Providers Care Assembler Filters Name Role Phone Shabana Adams MD Primary Care Provider [phone] Allergies Active Allergy Reactions Criticality Noted Date Comments Celecoxib Dizziness 09/10/2016 Niacin Rash Low 09/10/2016 Prasugrel Other (See Comments),Rash Low 09/10/2016 Medications nitroglycerin (NITROSTAT) 0.[address] 1 tablet (0.4 mg total) under the tongue every 5 (five) minutes as needed for chest pain (for chest pain). 25 tablet 3 0 Active aspirin 81 mg Take 1 tablet (81 mg total) by mouth in the morning. 30 tablet 11 4 Active magnesium oxide 500 mg tablet Take 1 tablet (500 mg total) by mouth in the morning and 1 tablet (500 mg total) before bedtime. 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 30 tablet 11 5 Active acetaminophen (TYLENOL EXTRA STRENGTH) 500 mg tablet Administer 1 tablet (500 mg total) per tube every 6 (six) hours as needed for pain, headaches or fever. 5 Active bumetanide (BUMEX) 1 mg tablet Administer 1 tablet (1 mg total) per tube daily. 5 Active dapagliflozin propanediol (FARXIGA) 10 mg tablet Administer 1 tablet (10 mg total) per tube in the morning. Active guaiFENesin (ROBITUSSIN) 100 mg/5 mL syrup Administer 10 mL (200 mg total) per tube every 6 (six) hours. Active PARoxetine (PAXIL) 20 mg tablet Administer 1 tablet (20 mg total) per tube in the morning. 5 Active warfarin (COUMADIN) 7.5 mg tablet 7.5mg PO daily, recheck INR 11/22/2024 5 Active enoxaparin (LOVENOX) 100 mg/mL syringe Inject 0.875 mL (87.5 mg total) under the skin Every 12 (twelve) hours. Until INR 2 Active esomeprazole (NexIUM) 20 mg packet Take 20 mg by mouth every morning before breakfast. Peg tube 5 Active insulin lispro (HumaLOG) 100 unit/mL insulin pen Inject 2-10 Units under the skin every 6 (six) hours. 151-200 mg/dL, give 2 units. 201-250 mg/dL, give 4 units.251-300 mg/dL, give 6 units. 301-350 mg/dL, give 8 units.351-400 mg/dL, give 10 units Active thiamine HCl (VITAMIN B-1) 100 mg tablet Administer 1 tablet (100 mg total) per tube in the morning. Active sennosides-docus ate sodium (SENOKOT-S) 8.6-50 mg Administer 1 tablet per tube every 12 (twelve) hours as needed for constipation. 5 Active saliva stimulant comb. no.3 (BIOTENE) spray,non-aeroso l Take 1 spray by mouth as needed (dry mouth). 5 Active bxoxgmbo-fao-der shawn gluconate (CENTRUM) 9 mg iron/15 mL liquid Administer 15 mL per tube in the morning. Active metoprolol tartrate (LOPRESSOR) 100 mg tablet Administer 1 tablet (100 mg total) per tube in the morning and 1 tablet (100 mg total) before bedtime. Active folic acid (FOLVITE) 1 mg/mL suspension Administer 1 mL (1 mg total) per tube in the morning. 5 Active cefEPime 2,000 mg in sodium chloride 0.9 % 100 mL IVPB W/ADAPTER Infuse 2,000 mg into a venous catheter every 8 (eight) hours for 27 days. 5 12/18/19 25 DAPTOmycin 750 mg in sodium chloride 0.9 % 50 mL IVPB Infuse 750 mg into a venous catheter daily for 26 days. 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 coli UTI 02/05/2021 Overview (09/06/2024): Added automatically from request for surgery [id number] Added automatically from request for surgery [id number] Benign prostatic hyperplasia with urinary obstru ction [...] medication. Neurosurgeon wanted off of anti-platelet but bootmaker hand wanted him to stay on Plavix secondary to heart stent. August 2016 PSA 7.39 free and total ratio of 28% GARCIA neg ## elevated 4K Score 29% probability of Erika 7 or higher disease ==== 02/11/2018 ==== [...] does need a find out that his gib-vw-taswmb cost summer going to try to look [...] PVR today. Will do a cystoscopy [facility] bladder solution as well. Will move that [...] biopsy by both ureteral orifi. Pathology sent [facility]. 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 -TURBT with stent left [...] of coronary angioplasty implant and gra ft Resolved Problems Problem Noted Date Diagnosed Date Resolved Date Paroxysmal atrial fibrillation 01/06/2018 12/22/2018 H/O coronary angioplasty 11/13/2010 Benign essential hypertension 01/02/2006 01/06/2018 Encounters Date Type Department Care Team Description 5 Telephone [facility] Medication Management [address] [place] [address] Medication Management, [facility] 5 Telephone [facility] [address] [place] [address] Ling Montiel 5 1:54 PM EDT - 5 3:19 PM EDT Surgery [facility] Surgery [address] [place] [address]. [place] [address] José Chi, DO ESOPHAGOGASTRODUODENOSCOPY INSERTION PEG TUBE [25019 (CPT )] 5 1:40 PM EDT Anesthesia Event [facility] Surgery [address] [place] [address]. 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 5 Telephone [facility] [address] [place] [address] Vandana Lopez Consult (ectopy) 5 Telephone [facility] [address] [place] [address] Vandana Lopez Consult (Peg placement) 5 11:09 PM EDT - 5 4:14 PM EDT Hospital Encounter [facility] [address] [place] [address] Ester Bajwa MD Gill, Kaleem U, MD Paroxysmal atrial fibrillation ([facility]) (Primary Dx) Discharge Disposition: [facility] Facility-Medicare Cert 5 Telephone [facility] [address] [place] [address] Zaynab Fritz heart rate 5 Travel 5 3:07 AM EDT - 5 10:30 PM EDT Hospital Encounter [facility] Care Unit [address] [place] [address] Flakita Alves MD Gill, Kaleem U, MD Discharge Disposition: [facility] Facility-Medicare Cert 5 Telephone [facility] [address] [place] [address] Niki Irizarry Consult (Osteo of lumbar spine) 5 4:21 AM EDT - 5 2:11 AM EDT Emergency [facility] - Emergency [address] [place] [id number] Sarthak Du DO Fall, initial encounter (Primary Dx); Atrial fibrillation with RVR ([facility]-HCC); Bladder mass; Discitis of thoracic region; Pneumonia due to infectious organism, unspecified laterality, unspecified part of lung Discharge Disposition: Another Hospital 5 Travel 5 Follow Up Anticoagulation [facility] Medication Management [address] [place] [address] [facility] Cerebrovascular disease (Primary Dx); 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; Paroxysmal atrial fibrillation ([facility]-HCC); alf (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 5 Follow Up Anticoagulation [facility] Medication Management [address] [place] [address] Medication Management, [facility] Cerebrovascular disease (Primary Dx); 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; Paroxysmal atrial fibrillation (CMS-HCC); alf (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 5 Telephone [facility], A Department of [facility] [address] [place] [address] [address] [place] [address] Stella Glass CMA 5 1:00 PM EDT Office Visit [facility] [address] [place] [address] A [facility] [place] [address] Ruperto Cartagena MD Malignant neoplasm of overlapping sites of bladder ([facility]-HCC) (Primary Dx); Elevated PSA 5 Telephone [facility] [address] [place] [address] [place] [address] Yelena Kuhn LPN 5 Telephone [facility] [address] [place] [address] [address] [facility] [place] [address] Ruperto Cartagena MD 5 Refill [facility] [address] [place] [address] Kelin Dumont APRN-TIERA Med Refill 5 Travel 5 Follow Up Anticoagulation [facility] Medication Management [address] [place] [address] Medication Management, [facility] Cerebrovascular disease (Primary Dx); 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; Paroxysmal atrial fibrillation (CMS-HCC); alf (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 5 Follow Up Anticoagulation [facility] Medication Management [address] [place] [address] Med[facility], [facility] Cerebrovascular disease (Primary Dx); 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; Paroxysmal atrial fibrillation ([facility]); alf (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 5 Follow Up Anticoagulation [facility] Medication Management [address] [place] [address] Medication Management, [facility] Cerebrovascular disease (Primary Dx); 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; Paroxysmal atrial fibrillation ([facility]); alf (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 5 Telephone [facility] Medication Management [address] [place] [address] Medication Management, [facility] 5 Follow Up Anticoagulation [facility] Medication Management [address] [place] [address] Medication Management, [facility] Cerebrovascular disease (Primary Dx); 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; Paroxysmal atrial fibrillation ([facility]); 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 Last 3 Months Immunizations Immunization Administration Dates Next Due Influenza High Dose Preservative Free IM 020,05/07/2019,04/14/2015 Influenza, High-dose, Quadrivalent 04/16/2023,,04/30/2021 Influenza, Injectable, quadrivalent (PF) 017 Influenza, Trivalent, Adjuvanted 04/05/2024 Pneumococcal Conjugate 13-Valent 11/28/2020 Pneumococcal Polysaccharide 09/04/2015 Family History Medical History Relation Name Comments Heart disease Father Heart failure Father Alzheimer's disease Mother Relation Name Status Comments Father Mother Social History Tobacco Use Types Packs/Day Years Used Date Smoking Tobacco: Former Cigarettes 1 1974 Smokeless Tobacco: Never Tobacco Cessation:Counseling Given: Not Answered Alcohol Use Standard Drinks/Week Comments No 0 (1 standard drink = 0.6 oz pur e alcohol) rare -yearly [facility] Utilities Answer Date Recorded In the past 12 months has [employer], [employer], or water company threatened to shut off [...] Orientation Straight 11/07/2024 7: 23 PM EDT Last Filed Vital Signs Vital Sign Reading Time Taken Comments Blood Pressure 127/81 11/20/2024 11:33 AM EDT Pulse 89 11/20/2024 11:33 AM EDT Temperature 36.6 C (97.9 F) 11/20/2024 11:33 AM EDT Respiratory Rate 20 11/20/2024 11:33 AM EDT Oxygen Saturation 93% 11/20/2024 11:33 AM EDT Inhaled Oxygen Concentration - - Weight 86.8 kg (191 lb 5.8 oz) 11/15/2024 5:00 A M EDT Height 182.9 cm (6' 0.01 ) 11/13/2024 12:17 PM E DT Body Mass Index 25.95 11/13/2024 12:17 PM EDT Plan of Treatment Upcoming Encounters Date Type Department Care Team (Late st Contact Info) Description 02/24/2025 11:30 AM EDT Office Visit [facility] [address] [place] [id number] Timothy Kang MD [address] [place] [address] 06/02/2025 12:00 PM EST Office Visit [facility] [address] [place] [address] Valeria Gonzalez MD [address] [facility] [address] [place] [address] Health Maintenance Due Date Last Done Comments DTaP,Tdap and Td Vaccines (1 - Tdap) 01/13/1964 Zoster (Shingles) Vaccine (1 of 2) 01/13/1964 Fall Risk Screening 2010 COVID-19 Vaccine (6 2023-2 5 season) 2024 04/16/2023, 03/29/2022, 04/30/2021, Additional history exists Influenza Vaccine 02/21/2025 04/05/2024, , 03/29/2022, Additional history exists Depression Screening 11/10/2025 11/10/2024 Tobacco Screening 11/13/2025 11/13/2024 Colonoscopy 01/01/2029 01/02/2024, 12/26/2008 Abdominal Aortic Aneurysm (A AA) Screen Completed 06/21/2024 Goals Goal Patient Goal Type Associated Problems Recent Progress Patient-Stated? Author <enter goal here> General Yes Juliet Bhatti, RN Note: Evaluation of progress towards goal: safe discharge Medical Devices Implanted Type Area Welfare Director Device Identifier Shelf Expiration Date Model / Serial / Lot Stent Stent Heart Description:BILATERAL KNEE R EPLACEMENTS, X 3 CARDIAC STENTS Procedures Procedure Name Priority Date/Time Associated Diagnosis Comments DNR PHYSICIAN ORDER REPORT (SCANNED INTO EHR) 11/29/2024 6:09 AM EDT DNR PHYSICIAN ORDER REPORT (SCANNED INTO EHR) 11/23/2024 9:39 AM EDT BEDSIDE GLUCOSE Routine 11/20/2024 11:41 AM EDT IONIZED CALCIUM Routine 11/20/2024 9:02 AM EDT BEDSIDE GLUCOSE Routine 11/20/2024 7:31 AM EDT PHOSPHORUS Routine 11/20/2024 4:34 AM EDT IONIZED MAGNESIUM Routine 11/20/2024 4:3 4 AM EDT MAGNESIUM Routine 11/20/2024 4:34 AM EDT COMPREHENSIVE METABOLIC PANEL Routine 11/20/2024 4:34 AM EDT CBC WITH AUTO DIFFERENTIAL Routine 11/20/2024 4:34 AM EDT PROTIME & INR Routine 11/20/2024 4:34 AM EDT BEDSIDE GLUCOSE Routine 11/19/2024 7:41 PM EDT BEDSIDE GLUCOSE Routine 11/19/2024 3:39 PM EDT MAGNESIUM Routine 11/19/2024 12:37 PM EDT POTASSIUM Routine 11/19/2024 12:37 PM EDT BEDSIDE GLUCOSE Routine 11/19/2024 12:12 PM EDT BEDSIDE GLUCOSE Routine 11/19/2024 10:51 AM EDT BEDSIDE GLUCOSE Routine 11/19/2024 7:16 AM EDT PHOSPHORUS Routine 11/19/2024 4:06 AM EDT IONIZED MAGNESIUM Routine 11/19/2024 4:0 6 AM EDT MAGNESIUM Routine 11/19/2024 4:06 AM EDT COMPREHENSIVE METABOLIC PANEL Routine 11/19/2024 4:06 AM EDT CBC WITH AUTO DIFFERENTIAL Routine 11/19/2024 4:06 AM EDT PROTIME & INR Routine 11/19/2024 4:06 AM EDT XR CHEST 1 VW STAT 11/18/2024 8:32 PM EDT BEDSIDE GLUCOSE Routine 11/18/2024 8:26 PM EDT XR CHEST 1 VW STAT 11/18/2024 4:20 PM EDT BEDSIDE GLUCOSE Routine 11/18/2024 3:32 PM EDT BEDSIDE GLUCOSE Routine 11/18/2024 11:43 AM EDT POTASSIUM Routine 11/18/2024 10:33 AM EDT MAGNESIUM Routine 11/18/2024 10:33 AM EDT BEDSIDE GLUCOSE Routine 11/18/2024 8:13 AM EDT B-TYPE NATRIURETIC PEPTIDE Add-On 11/18/2024 4:59 AM EDT PHOSPHORUS Routine 11/18/2024 4:59 AM EDT IONIZED MAGNESIUM Routine 11/18/2024 4:5 9 AM EDT COMPREHENSIVE METABOLIC PANEL Routine 11/18/2024 4:59 AM EDT CBC WITH AUTO DIFFERENTIAL Routine 11/18/2024 4:59 AM EDT PROTIME & INR Routine 11/18/2024 4:59 AM EDT MAGNESIUM STAT 11/18/2024 2:33 AM EDT BASIC METABOLIC PANEL STAT 11/18/2024 2:33 AM EDT ECG 12-LEAD Routine 11/18/2024 12:37 AM EDT PHOSPHORUS STAT 11/17/2024 10:09 PM EDT BEDSIDE GLUCOSE Routine 11/17/2024 9:23 PM EDT BEDSIDE GLUCOSE Routine 11/17/2024 4:19 PM EDT BEDSIDE GLUCOSE Routine 11/17/2024 11:40 AM EDT BEDSIDE GLUCOSE Routine 11/17/2024 8:06 AM EDT PHOSPHORUS STAT Add-on 11/17/2024 5:29 AM EDT MAGNESIUM Routine 11/17/2024 5:29 AM EDT COMPREHENSIVE METABOLIC PANEL Routine 11/17/2024 5:29 AM EDT CBC WITH AUTO DIFFERENTIAL Routine 11/17/2024 5:29 AM EDT IONIZED CALCIUM Routine 11/17/2024 5:29 AM EDT IONIZED MAGNESIUM Routine 11/17/2024 5:2 9 AM EDT PROTIME & INR Routine 11/17/2024 5:29 AM EDT BEDSIDE GLUCOSE Routine 11/16/2024 9:17 PM EDT BEDSIDE GLUCOSE Routine 11/16/2024 5:09 PM EDT BEDSIDE GLUCOSE Routine 11/16/2024 4:43 PM EDT BEDSIDE GLUCOSE Routine 11/16/2024 12:52 PM EDT BEDSIDE GLUCOSE Routine 11/16/2024 8:32 AM EDT PHOSPHORUS Add-On 11/16/2024 5:37 AM EDT HEPARIN ANTI XA, UNFRACTIONATED Routine 11/16/2024 5:37 AM EDT VITAMIN B12 Routine 11/16/2024 5:37 AM EDT CLINICAL PATHOLOGY BLOOD SMEAR REVIEW Routine 11/16/2024 5:37 AM EDT FERRITIN Routine 11/16/2024 5:37 AM EDT FOLATE Routine 11/16/2024 5:37 AM EDT IRON AND TIBC Routine 11/16/2024 5:37 AM EDT MAGNESIUM Routine 11/16/2024 5:37 AM EDT COMPREHENSIVE METABOLIC PANEL Routine 11/16/2024 5:37 AM EDT CBC WITH AUTO DIFFERENTIAL Routine 11/16/2024 5:37 AM EDT IONIZED CALCIUM Routine 11/16/2024 5:37 AM EDT IONIZED MAGNESIUM Routine 11/16/2024 5:3 7 AM EDT PROTIME & INR Routine 11/16/2024 5:37 AM EDT POTASSIUM Routine 11/15/2024 9:12 PM EDT HEPARIN ANTI XA, UNFRACTIONATED Routine 11/15/2024 9:12 PM EDT MAGNESIUM Routine 11/15/2024 9:12 PM EDT BEDSIDE GLUCOSE Routine 11/15/2024 8:08 PM EDT BEDSIDE GLUCOSE Routine 11/15/2024 5:39 PM EDT BEDSIDE GLUCOSE Routine 11/15/2024 1:21 PM EDT POTASSIUM Add-On 11/15/2024 12:41 PM EDT PHOSPHORUS STAT 11/15/2024 12:41 PM EDT IONIZED CALCIUM Routine 11/15/2024 12:41 PM EDT IONIZED MAGNESIUM Routine 11/15/2024 12: 41 PM EDT HEPARIN ANTI XA, UNFRACTIONATED Routine 11/15/2024 12:41 PM EDT BRONCHOPULMONARY HYGIENE Routine 11/15/2024 11:42 AM EDT BEDSIDE GLUCOSE Routine 11/15/2024 9:01 AM EDT HEPARIN ANTI XA, UNFRACTIONATED Routine 11/15/2024 5:33 AM EDT CBC WITH AUTO DIFFERENTIAL Routine 11/15/2024 5:33 AM EDT BASIC METABOLIC PANEL Routine 11/15/2024 5:33 AM EDT PROTIME & INR Routine 11/15/2024 5:33 AM EDT HEPARIN ANTI XA, UNFRACTIONATED Routine 11/15/2024 1:20 AM EDT BEDSIDE GLUCOSE Routine 11/14/2024 9:04 PM EDT BEDSIDE GLUCOSE Routine 11/14/2024 5:15 PM EDT HEPARIN ANTI XA, UNFRACTIONATED Routine 11/14/2024 5:09 PM EDT BEDSIDE GLUCOSE Routine 11/14/2024 12:52 PM EDT PROTIME & INR Routine 11/14/2024 10:21 AM EDT POTASSIUM Routine 11/14/2024 10:21 AM EDT BEDSIDE GLUCOSE Routine 11/14/2024 9:25 AM EDT BRONCHOPULMONARY HYGIENE Routine 11/14/2024 8:00 AM EDT MAGNESIUM Add-On 11/14/2024 5:22 AM EDT BASIC METABOLIC PANEL Routine 11/14/2024 5:22 AM EDT CBC (NO DIFF) Routine 11/14/2024 5:22 AM EDT BEDSIDE GLUCOSE Routine 11/14/2024 2:08 AM EDT BEDSIDE GLUCOSE Routine 11/13/2024 8:56 PM EDT BEDSIDE GLUCOSE Routine 11/13/2024 5:11 PM EDT MI EGD PERCUTANEOUS PLACEMENT GASTROSTOMY TUBE 11/13/2024 1:40 PM EDT DYSPHAGIA BEDSIDE GLUCOSE Routine 11/13/2024 12:26 PM EDT PROVATION EGD Routine 11/13/2024 11:35 AM EDT BEDSIDE GLUCOSE Routine 11/13/2024 9:49 AM EDT BEDSIDE GLUCOSE Routine 11/13/2024 9:15 AM EDT BRONCHOPULMONARY HYGIENE Routine 11/13/2024 8:00 AM EDT BASIC METABOLIC PANEL Routine 11/13/2024 5:21 AM EDT CBC WITH AUTO DIFFERENTIAL Routine 11/13/2024 5:21 AM EDT HEPARIN ANTI XA, UNFRACTIONATED Routine 11/13/2024 5:21 AM EDT BEDSIDE GLUCOSE Routine 11/12/2024 9:49 PM EDT BEDSIDE GLUCOSE Routine 11/12/2024 8:48 PM EDT POTASSIUM Routine 11/12/2024 8:11 PM EDT MAGNESIUM Routine 11/12/2024 8:11 PM EDT BEDSIDE GLUCOSE Routine 11/12/2024 3:20 PM EDT BEDSIDE GLUCOSE Routine 11/12/2024 11:37 AM EDT XR CHEST 1 VW STAT 11/12/2024 11:06 AM EDT FL SWALLOW MOTILITY FUNCTION Routine 11/12/2024 8:42 AM EDT BEDSIDE GLUCOSE Routine 11/12/2024 8:02 AM EDT CK TOTAL Add-On 11/12/2024 5:42 AM EDT HEPARIN ANTI XA, UNFRACTIONATED Routine 11/12/2024 5:42 AM EDT MAGNESIUM Routine 11/12/2024 5:42 AM EDT CBC (NO DIFF) Routine 11/12/2024 5:42 AM EDT COMPREHENSIVE METABOLIC PANEL Routine 11/12/2024 5:42 AM EDT BEDSIDE GLUCOSE Routine 11/11/2024 9:13 PM EDT CK TOTAL STAT Add-on 11/11/2024 8:01 PM EDT POTASSIUM Routine 11/11/2024 8:01 PM EDT MAGNESIUM Routine 11/11/2024 8:01 PM EDT BEDSIDE GLUCOSE Routine 11/11/2024 5:12 PM EDT BEDSIDE GLUCOSE Routine 11/11/2024 3:15 PM EDT BRONCHOPULMONARY HYGIENE Routine 11/11/2024 1:00 PM EDT BEDSIDE GLUCOSE Routine 11/11/2024 12:26 PM EDT BRONCHOPULMONARY HYGIENE Routine 11/11/2024 8:22 AM EDT BEDSIDE GLUCOSE Routine 11/11/2024 8:03 AM EDT HEPARIN ANTI XA, UNFRACTIONATED Routine 11/11/2024 6:11 AM EDT MAGNESIUM Routine 11/11/2024 6:11 AM EDT CBC (NO DIFF) Routine 11/11/2024 6:11 AM EDT COMPREHENSIVE METABOLIC PANEL Routine 11/11/2024 6:11 AM EDT HEPARIN ANTI XA, UNFRACTIONATED Routine 11/11/2024 12:51 AM EDT BEDSIDE GLUCOSE Routine 11/10/2024 10:44 PM EDT HEPARIN ANTI XA, UNFRACTIONATED Routine 11/10/2024 7:01 PM EDT BEDSIDE GLUCOSE Routine 11/10/2024 6:09 PM EDT BEDSIDE GLUCOSE Routine 11/10/2024 5:10 PM EDT FL SWALLOW MOTILITY FUNCTION Routine 11/10/2024 1:58 PM EDT BEDSIDE GLUCOSE Routine 11/10/2024 11:56 AM EDT MAGNESIUM Routine 11/10/2024 9:44 AM EDT CBC (NO DIFF) Routine 11/10/2024 9:44 AM EDT COMPREHENSIVE METABOLIC PANEL Routine 11/10/2024 9:44 AM EDT BEDSIDE GLUCOSE Routine 11/10/2024 7:52 AM EDT HEPARIN ANTI XA, UNFRACTIONATED Routine 11/10/2024 6:44 AM EDT EXTRA TUBES LAVENDER TOP Routine 11/10/2024 6:38 AM EDT EXTRA TUBES PST TOP Routine 11/10/2024 6 :38 AM EDT EXTRA TUBES Routine 11/10/2024 6:38 AM EDT PROTIME & INR Routine 11/10/2024 12:08 AM EDT APTT Add-On 11/10/2024 12:08 AM EDT HEPARIN ANTI XA, UNFRACTIONATED Routine 11/10/2024 12:08 AM EDT EXTRA TUBES LAVENDER TOP Routine 11/10/2024 12:06 AM EDT EXTRA TUBES PST TOP Routine 11/10/2024 1 2:06 AM EDT EXTRA TUBES Routine 11/10/2024 12:06 AM EDT BRONCHOPULMONARY HYGIENE Routine 11/09/2024 11:32 PM EDT BRONCHOPULMONARY HYGIENE Routine 11/09/2024 11:32 PM EDT BRONCHOPULMONARY HYGIENE Routine 11/09/2024 11:32 PM EDT BEDSIDE GLUCOSE Routine 11/09/2024 9:12 PM EDT BEDSIDE GLUCOSE Routine 11/09/2024 5:33 PM EDT PROTIME & INR Routine 11/09/2024 4:13 PM EDT APTT Routine 11/09/2024 4:13 PM EDT PLATELET COUNT Routine 11/09/2024 4:13 PM EDT HEMOGLOBIN Routine 11/09/2024 4:13 PM EDT LACTATE W/ REFLEX STAT 11/09/2024 4:1 3 PM EDT LACTATE W/ REFLEX STAT 11/09/2024 12: 04 PM EDT BEDSIDE GLUCOSE Routine 11/09/2024 11:21 AM EDT XR CHEST 1 VW Routine 11/09/2024 10:06 AM EDT LACTATE W/ REFLEX STAT 11/09/2024 7:5 2 AM EDT BEDSIDE GLUCOSE Routine 11/09/2024 7:33 AM EDT B-TYPE NATRIURETIC PEPTIDE Routine 11/09/2024 7:22 AM EDT PROTIME & INR Routine 11/09/2024 7:22 AM EDT MAGNESIUM Routine 11/09/2024 7:22 AM EDT COMPREHENSIVE METABOLIC PANEL Routine 11/09/2024 7:22 AM EDT CBC WITH AUTO DIFFERENTIAL Routine 11/09/2024 7:22 AM EDT BEDSIDE GLUCOSE Routine 11/08/2024 9:18 PM EDT BEDSIDE GLUCOSE Routine 11/08/2024 5:34 PM EDT BRONCHOPULMONARY HYGIENE Routine 11/08/2024 4:13 PM EDT BRONCHOPULMONARY HYGIENE Routine 11/08/2024 4:13 PM EDT POTASSIUM Routine 11/08/2024 2:02 PM EDT ECG 12-LEAD Routine 11/08/2024 1:51 PM EDT BEDSIDE GLUCOSE Routine 11/08/2024 12:18 PM EDT FL SWALLOW MOTILITY FUNCTION Routine 11/08/2024 12:09 PM EDT BEDSIDE GLUCOSE Routine 11/08/2024 7:40 AM EDT PROTIME & INR Routine 11/08/2024 3:57 AM EDT MAGNESIUM Routine 11/08/2024 3:57 AM EDT COMPREHENSIVE METABOLIC PANEL Routine 11/08/2024 3:57 AM EDT CBC WITH AUTO DIFFERENTIAL Routine 11/08/2024 3:57 AM EDT PROCALCITONIN Routine 11/08/2024 3:57 AM EDT BEDSIDE GLUCOSE Routine 11/07/2024 8:51 PM EDT POTASSIUM Routine 11/07/2024 7:05 PM EDT BEDSIDE GLUCOSE Routine 11/07/2024 3:58 PM EDT BEDSIDE GLUCOSE Routine 11/07/2024 11:04 AM EDT HEPARIN ANTI XA, UNFRACTIONATED Routine 11/07/2024 10:34 AM EDT BEDSIDE GLUCOSE Routine 11/07/2024 8:30 AM EDT PROTIME & INR Routine 11/07/2024 3:13 AM EDT MAGNESIUM Routine 11/07/2024 3:13 AM EDT COMPREHENSIVE METABOLIC PANEL Routine 11/07/2024 3:13 AM EDT CBC WITH AUTO DIFFERENTIAL Routine 11/07/2024 3:13 AM EDT PROCALCITONIN Routine 11/07/2024 3:13 AM EDT HEPARIN ANTI XA, UNFRACTIONATED Routine 11/07/2024 3:13 AM EDT BEDSIDE GLUCOSE Routine 11/06/2024 9:05 PM EDT EXTRA TUBES PST TOP Routine 11/06/2024 7 :12 PM EDT EXTRA TUBES BLUE TOP Routine 11/06/2024 7:12 PM EDT EXTRA TUBES Routine 11/06/2024 7:12 PM EDT CBC WITH AUTO DIFFERENTIAL Routine 11/06/2024 7:12 PM EDT MAGNESIUM Routine 11/06/2024 6:28 PM EDT COMPREHENSIVE METABOLIC PANEL Routine 11/06/2024 6:28 PM EDT PROTIME & INR Routine 11/06/2024 6:27 PM EDT APTT Routine 11/06/2024 6:27 PM EDT BEDSIDE GLUCOSE Routine 11/06/2024 6:04 PM EDT LOWER RESP CULTURE SPUTUM CULTURE INC GRAM STAIN Routine 11/06/2024 4:03 PM EDT XR CHEST 1 VW Routine 11/06/2024 1:33 PM EDT URINE CULTURE Routine 11/06/2024 11:13 AM EDT PROCALCITONIN Routine 11/06/2024 10:55 AM EDT LACTATE W/ REFLEX STAT 11/05/2024 9:0 2 PM EDT POCT NURSING URINE MACROSCOPIC UA Routine 11/05/2024 6:50 PM EDT ER EXTRA URINE CULTURE STAT 6:43 PM EDT ER EXTRA URINE STAT 11/05/2024 6:43 PM EDT LACTATE W/ REFLEX STAT 11/05/2024 4:5 0 PM EDT LACTATE W/ REFLEX STAT 11/05/2024 12: 14 PM EDT BLOOD CULTURE STAT 11/05/2024 12:14 PM EDT BLOOD CULTURE STAT 11/05/2024 12:09 PM EDT LACTATE W/ REFLEX STAT 11/05/2024 9:5 7 AM EDT MR CERVICAL SPINE W WO CONT STAT 11/05/2024 9:39 AM EDT MR LUMBAR SPINE WO CONT STAT 11/06/19 9:04 AM EDT MR THORACIC SPINE WO CONT STAT 11/05/2024 8:[address] BRAIN WO CONT STAT 11/05/2024 7:[address] ABDOMEN AND PELVIS W CONT STAT 11/05/2024 7:[address] CHEST W CONT STAT 11/05/2024 7:[address] CERVICAL SPINE WO CONT STAT 11/05/2024 7:41 AM EDT TROP I, HIGH SENSITIVITY 1 HOUR STAT 11/05/2024 6:01 AM EDT SARS/FLU A+B/RSV BY NAAT/MOLECULAR (M4RT COLLECTION TUBE) STAT 11/05/2024 5:04 AM EDT ERYTHROCYTE SEDIMENTATION RATE (ESR) Add-On 11/05/2024 4:45 AM EDT C-REACTIVE PROTEIN STAT Add-on 11/05/2024 4: 45 AM EDT TROPONIN I, HIGH SENSITIVITY 0 HOUR STAT 11/05/2024 4:45 AM EDT APTT STAT 11/05/2024 4:45 AM EDT PROTIME & INR STAT 11/05/2024 4:45 AM EDT THYROID PROFILE INCLUDES TSH FT4 STAT 11/05/2024 4:45 AM EDT MYOGLOBIN, SERUM STAT 11/05/2024 4:45 AM EDT CK TOTAL STAT 11/05/2024 4:45 AM EDT MAGNESIUM STAT 11/05/2024 4:45 AM EDT TROPONIN I, HIGH SENSITIVITY 0 HOUR STAT 11/05/2024 4:45 AM EDT B-TYPE NATRIURETIC PEPTIDE STAT 11/05/2024 4:45 AM EDT COMPREHENSIVE METABOLIC PANEL STAT 11/05/2024 4:45 AM EDT CBC WITH AUTO DIFFERENTIAL STAT 11/05/2024 4:45 AM EDT PM ED CRITICAL CARE Routine 11/05/2024 4 :44 AM EDT LACTATE W/ REFLEX STAT 11/05/2024 4:4 4 AM EDT ECG 12-LEAD STAT 11/05/2024 4:25 AM EDT PROTIME & INR Routine 11/04/2024 PROTIME & INR Routine 10/28/2024 PROTIME & INR Routine 10/21/2024 PROTIME & INR Routine 10/14/2024 PROTIME & INR Routine 10/11/2024 PROTIME & INR Routine 10/06/2024 PROTIME & INR Routine 10/04/2024 PROTIME & INR Routine 09/30/2024 US RETROPERITONEAL COMPLETE Routine 06/21/2024 1:17 PM EST [facility] COLONOSCOPY Routine 12/26/2008 from Last 3 Months or Most Recently Relevant to Health Maintenance Results * DNR Physician Order Report (Scanned Into EHR) (11/29/2024 6:09 AM EDT) Only the most recent of2 resultswithin the time period is included. Narrative 11/29/2024 6:09 AM EDT Ordered by an unspecified provider. us Not In System Ref Prov OUTPATIENT REFERRAL ORDER FROILAN Final Result * (ABNORMAL) Bedside Glucose *Place/Obtain serum glucose if >500 per glucometer. (11/20/2024 11:41AM EDT) Only the most recent of63 resultswithin the time period is included. Bedside Glucose (POC) 179(H) 65 - 99 mg/dL 11/20/2024 11:46 AM EDT [facility] Blood specimen (specimen) 11/20/2024 11:41 AM EDT 11/20/2024 11:46 AM EDT Emilio Beauchamp MD POINT OF CARE TEST ORDERABLES F inal Result [facility] [address] [place] [address], * Ionized calcium (11/20/2024 9:02 AM EDT) Only the most recent of4 resultswithin the time period is included. IONIZED CALCIUM - ICAN 4.9 4.5 - 5.3 mg/dL 11/20/2024 9:27 AM EDT [facility] Blood Venous blood / Unknown Central Line / Unknown 11/20/2024 9:02 AM EDT 11/20/2024 9:17 AM EDT Lara Rios [employer] DRIVER-[employer] MIXING OPERATOR LAB BLOOD ORDERABLES Karie l Result [facility] [address] [place] [address], * Ionized magnesium (11/20/2024 4:34 AM EDT) Only the most recent of6 resultswithin the time period is included. IONIZED MAGNESIUM 0.61 0.45 - 0.74 mmol/L 11/20/2024 5:36 AM EDT [facility] Blood Venous blood / Unknown 11/20/2024 4:34 AM EDT 11/20/2024 5:27 AM EDT us Emilio Beauchamp MD LAB BLOOD ORDERABLES Final Resu lt [facility] [address] [place] [address], [place] [phone] * (ABNORMAL) CBC auto differential (11/20/2024 4:34 AM EDT) Only the most recent of12 resultswithin the time period is included. WBC 8.1 4 - 11 x10E9/L 11/20/2024 5:41 AM EDT [facility] RBC Count 4.23 4.1 - 5.7 X10E12/L 11/20/2024 5:41 AM EDT [facility] Hemoglobin 11.1(L) 13 - 17 g/dL 11/20/2024 5:41 AM EDT [facility] Hematocrit 33.3(L) 39 - 50 % 11/20/2024 5:41 AM EDT [facility] MCV 79(L) 80 - 100 fL 11/20/2024 5:41 AM EDT [facility] MCH 26.2(L) 27 - 34 pg 11/20/2024 5:41 AM EDT [facility] MCHC 33.3 32 - 36 g/dL 11/20/2024 5:41 AM EDT [facility] RDW 19.9(H) 11.5 - 15 % 11/20/2024 5:41 AM EDT [facility] Platelet Count 96(L) 150 - 450 X10E9/L 11/20/2024 5:41 AM EDT [facility] MPV 8.2 7 - 12 fL 11/20/2024 5:41 AM EDT [facility] Neutrophils % 72.8 % 11/20/2024 5:41 AM EDT [facility] Lymphocytes % 15.2 % 11/20/2024 5:41 AM EDT [facility] Monocytes % 9.3 % 11/20/2024 5:41 AM EDT [facility] Eosinophils % 1.6 % 11/20/2024 5:41 AM EDT [facility] Basophils % 1.1 % 11/20/2024 5:41 AM EDT [facility] Neutrophils Absolute (A) 5.9 1.5 - 6.6 10*3/uL 11/20/2024 5:41 AM EDT [facility] Lymphocytes Absolute 1.2 1.0 - 3.5 10*3/uL 11/20/2024 5:41 AM EDT [facility] Monocytes Absolute 0.8 0.0 - 0.9 10*3/uL 11/20/2024 5:41 AM EDT [facility] Eosinophils Absolute 0.1 0.0 - 0.4 10*3/uL 11/20/2024 5:41 AM EDT [facility] Basophils Absolute 0.1 0.0 - 0.2 10*3/uL 11/20/2024 5:41 AM EDT [facility] Differential Type AUTOMATED DIFFERENTIAL 11/20/2024 5:41 AM EDT [facility] Blood Venous blood / Unknown 11/20/2024 4:34 AM EDT 11/20/2024 5:24 AM EDT us Lara Rios [employer] DRIVER-[employer] MIXING OPERATOR LAB BLOOD ORDERABLES Karie l Result [facility] [address] [place] [address], * (ABNORMAL) Protime & INR (11/20/2024 4:34 AM EDT) Only the most recent of22 resultswithin the time period is included. PROTIME 18.4(H) 9.8 - 13.2 sec 11/20/2024 6:19 AM EDT [facility] INR 1.6(H) 0.9 - 1.2 11/20/2024 6:19 AM EDT [facility] Blood Venous blood / Unknown 11/20/2024 4:34 AM EDT 11/20/2024 5:24 AM EDT Christiano Coleman MD LAB BLOOD ORDERABLES Final Resul t Performing Organization Address City/[facility]/ZIP Co de Phone Number [facility] [address] [place] [address], [place] [phone] * Phosphorus (11/20/2024 4:34 AM EDT) Only the most recent of7 resultswithin the time period is included. PHOSPHORUS 3.1 2.4 - 4.9 mg/dL 11/20/2024 6:30 AM EDT [facility] Blood Venous blood / Unknown 11/20/2024 4:34 AM EDT 11/20/2024 5:24 AM EDT Emilio Beauchamp MD LAB BLOOD ORDERABLES Final Resu lt Performing Organization Address [facility] Co de Phone Number [facility] [address] [place] [address], * Magnesium (11/20/2024 4:34 AM EDT) Only the most recent of19 resultswithin the time period is included. MAGNESIUM 2.0 1.8 - 2.6 mg/dL 11/20/2024 6:30 AM EDT [facility] Blood 11/20/2024 4:34 AM EDT 11/20/2024 5:24 AM EDT Lara Rios W[employer] DRIVER-[employer] MIXING OPERATOR LAB BLOOD ORDERABLES Karie l Result Performing Organization Address City/[facility]/ZIP Co de Phone Number [facility] [address] [place] [address], [place] [phone] * (ABNORMAL) Comprehensive metabolic panel (11/20/2024 4:34 AM EDT) Only the most recent of13 resultswithin the time period is included. SODIUM 140 134 - 146 mmol/L 11/20/2024 6:30 AM [facility] POTASSIUM 3.6 3.5 - 5.0 mmol/L 11/20/2024 6:30 AM [facility] CHLORIDE 116(H) 98 - 109 mmol/L 11/20/2024 6:30 AM [facility] CARBON DIOXIDE 22 22 - 32 mmol/L 11/20/2024 6:30 AM [facility] ANION GAP 2(L) 5 - 15 mmol/L 11/20/2024 6:30 AM [facility] BLOOD UREA NITROGEN 27 5 - 27 mg/dL 11/20/2024 6:30 AM [facility] CREATININE 0.99 0.60 - 1.30 mg/dL 11/20/2024 6:30 AM [facility] Comment:METHOD TRACEABLE TO IDMS STANDARD GLUCOSE 194(H) 65 - 99 mg/dL 11/20/2024 6:30 AM [facility] CALCIUM 7.7(L) 8.5 - 10.5 mg/dL 11/20/2024 6:30 AM [facility] TOTAL PROTEIN 7.9 6.0 - 8.0 g/dL 11/20/2024 6:30 AM [facility] ALBUMIN 2.7(L) 3.2 - 5.3 g/dL 11/20/2024 6:30 AM [facility] ALKALINE PHOSPHATASE 104 39 - 130 U/L 11/20/2024 6:30 AM [facility] AST 17 <=41 U/L 11/20/2024 6:30 AM [facility] ALT 16 <=40 U/L 11/20/2024 6:30 AM [facility] BILIRUBIN,TOTAL 0.7 0.3 - 1.2 mg/dL 11/20/2024 6:30 AM [facility] EGFR Non-Race Dependent 77 >=60 ml/min/1.7 3sq.m 11/20/2024 6:30 AM EDT [facility] Comment: Reported eGFR is based on the CKD-EPI 2020 equation that does not use a race coefficient. Blood Venous blood / Unknown 11/20/2024 4:34 AM EDT 11/20/2024 5:24 AM EDT Lara Rios [employer] DRIVER-[employer] FE[employer] MIXING OPERATOR LAB BLOOD ORDERABLES Karie l Result Performing Organization Address City/[facility]/ZIP Co de Phone Number [facility] [address] [place] [address], * Potassium (11/19/2024 12:37 PM EDT) Only the most recent of9 resultswithin the time period is included. POTASSIUM 3.9 3.5 - 5.0 mmol/L 11/19/2024 1:48 PM EDT [facility] Blood Venous blood / Unknown Central Line / Unknown 11/19/2024 12:37 PM EDT 11/19/2024 12:50 PM EDT Emilio Beauchamp MD LAB BLOOD ORDERABLES Final Resu lt Performing Organization Address [facility] Co de Phone Number [facility] [address] [place] [address], * X-ray chest 1 view (11/18/2024 8:32 PM EDT) Only the most recent of5 resultswithin the time period is included. Anatomical Region Laterality Modality Body, Chest N/A Computed Radiogr aphy 11/18/2024 9:10 PM EDT Narrative 11/18/2024 9:12 PM EDT Procedure: Chest x-ray performed Number of views:1 History:Shortness of breath PICC line placement Comparison:11/18/2024 from earlier in the day Impression: 1. A malpositioned right PICC line is unchanged. A new left PICC line tip is in the distal SVC. The lungs are unchanged. There is no pneumothorax. Finalized by Yash Rinaldi MD on 11/18/2024 9:12 PM Procedure Note Yash Rinaldi MD - 11/18/2024 Procedure: Chest x-ray performed Number of views:1 History:Shortness of breath PICC line placement Comparison:11/18/2024 from earlier in the day Impression: 1. A malpositioned right PICC line is unchanged. A new left PICC line tipis in the distal SVC. The lungs are unchanged. There is no pneumothorax. Finalized by Yash Rinaldi MD on 11/18/2024 9:12 PM Kathryn Guzman W[employer] TAX[employer] DRIVER-DAIR[employer] FEED MIXING OPERATOR IMG DIAGNOSTIC IMAGING ORDERABLES Final Result * (ABNORMAL) B-type natriuretic peptide (11/18/2024 4:59 AM EDT) Only the most recent of3 resultswithin the time period is included. Pathologist [facility] BNP 423(H) <=100 pg/mL 11/18/2024 11:42 AM EDT [facility] Blood Venous blood / Unknown 11/18/2024 4:59 AM EDT 11/18/2024 5:12 AM EDT Lara Rios W[employer] DRIVER-DA[employer] FE[employer] MIXING OPERATOR LAB BLOOD ORDERABLES Karie l Result [facility] [address] [place] [address], [place] [phone] * (ABNORMAL) Basic Metabolic Panel (11/18/2024 2:33 AM EDT) Only the most recent of4 resultswithin the time period is included. Pathologist [facility] SODIUM 147(H) 134 - 146 mmol/L 11/18/2024 3:13 AM EDT [facility] POTASSIUM 3.1(L) 3.5 - 5.0 mmol/L 11/18/2024 3:13 AM EDT [facility] CHLORIDE 110(H) 98 - 109 mmol/L 11/18/2024 3:13 AM EDT [facility] CARBON DIOXIDE 27 22 - 32 mmol/L 11/18/2024 3:13 AM EDT [facility] ANION GAP 10 5 - 15 mmol/L 11/18/2024 3:13 AM EDT [facility] BLOOD UREA NITROGEN 27 5 - 27 mg/dL 11/18/2024 3:13 AM EDT [facility] CREATININE 1.08 0.60 - 1.30 mg/dL 11/18/2024 3:13 AM EDT [facility] Comment:METHOD TRACEABLE TO IDMS STANDARD GLUCOSE 220(H) 65 - 99 mg/dL 11/18/2024 3:13 AM EDT [facility] CALCIUM 8.7 8.5 - 10.5 mg/dL 11/18/2024 3:13 AM EDT [facility] EGFR Non-Race Dependent 70 >=60 ml/min/1.7 3sq.m 11/18/2024 3:13 AM EDT [facility] Comment: Reported eGFR is based on the CKD-EPI 2020 equation that does not use a race coefficient. Blood 11/18/2024 2:33 AM EDT 11/18/2024 2:44 AM EDT [employer] LAB BLOOD ORDERABLES Final Result [facility] [address] [place] [address], [place] [phone] * ECG 12 lead (11/18/2024 12:37 AM EDT) Only the most recent of3 resultswithin the time period is included. 11/18/2024 12:3 7 AM EDT Narrative [facility] - 11/18/2024 1:44 PM EDT [employer] W[employer] DRIVER-[facility] ECG ORDERABLES Karie l Result [facility] * Clinical Pathology Blood Smear Review Clinical (11/16/2024 5:37 AM EDT) Case Report Clinical Pathology Report Case: [id number] Authorizing Provider: LAUREANO Alvarez Collected: 11/16/2024 0537 Ordering Location: [facility] Received: 11/16/2024 1309 - GEN 8 Acute Pathologist: Daria Dockery DO Specimen: Blood, Venous 11/17/2024 10:59 AM EDT [facility] Final Diagnosis Granulocytosis and borderline mature monocytosis suggestive of a reactive, inflammatory, infectious or therapeutic process. Microcytic, hypochromic anemia with RBC indices characteristic of iron deficiency. Thrombocytopenia with morphologically unremarkable platelets. 11/17/2024 10:59 AM EDT [facility] at 1059 EDT Comment A review of laboratory studies confirms low serum iron and transferrin. 11/17/2024 10:59 AM EDT [facility] Microscopic Description CBC (11/16/2024): WBC = 12.1 x10E9/L; HGB = 12.1 g/dL; HCT =37/6 % MCV = 79 fL; PLT = 81 x10E9/L White blood cells show leukocytosis reflecting absolute neutrophilia. Neutrophils and monocytes display reactive cytoplasmic features. Circulating blasts are not identified. White blood cells are otherwise unremarkable. Red blood cells show mild microcytic, hypochromic anemia with mild anisopoikilocytosis and no increase in schistocytes. Rare circulating nucleated red blood cells are present. Platelets are decreased with normal size and granulation. 11/17/2024 10:59 AM EDT [facility] Clinical Information Under treatment for community acquired pneumonia, concern for osteomyelitis. 11/17/2024 10:59 AM EDT [facility] Embedded Images 11/17/2024 10:59 AM EDT [facility] Blood Venous blood / Unknown 11/16/2024 5:37 AM EDT 11/16/2024 1:09 PM EDT Lara Rios W[employer] DRIVER-[facility] LAB BLOOD ORDERABLES Karie l Result [facility] [address] [place] [address], [place] [phone] * (ABNORMAL) Iron and TIBC (11/16/2024 5:37 AM EDT) IRON 38(L) 50 - 212 ug/dL 11/16/2024 6:46 AM EDT [facility] TRANSFERRIN 134(L) 168 - 336 mg/dL 11/16/2024 6:46 AM EDT [facility] IRON BINDING 188(L) 250 - 425 ug/dL 11/16/2024 6:46 AM EDT [facility] IRON SATURATION 20 20 - 50 % SATURATION 11/16/2024 6:46 AM EDT [facility] Blood Venous blood / Unknown 11/16/2024 5:37 AM EDT 11/16/2024 6:00 AM EDT Lara Rios [employer] DRIVERFLO[facility] LAB BLOOD ORDERABLES Karie l Result Performing Organization Address City/[facility]/ZIP Co de Phone Number [facility] [address] [place] [address], [place] [phone] * Anti XA unfractionated heparin (11/16/2024 5:37 AM EDT) Only the most recent of15 resultswithin the time period is included. ANTI XA UFH 0.38 0.30 - 0.70 IU/mL 11/16/2024 6:32 AM EDT [facility] Comment: Optimal time for testing is 6 hrs post dosage This test is specific for monitoring patients on UFH, and is not recommended for use with other Anti-Xa medications. Blood Venous blood / Unknown 11/16/2024 5:37 AM EDT 11/16/2024 6:01 AM EDT Emilio Beauchamp MD LAB BLOOD ORDERABLES Final Resu lt [facility] [address] [place] [address], [place] [phone] * (ABNORMAL) Folate (11/16/2024 5:37 AM EDT) FOLIC ACID 5.7(L) >5.8 ng/mL 11/16/2024 7:00 AM EDT [facility] Blood Venous blood / Unknown 11/16/2024 5:37 AM EDT 11/16/2024 6:00 AM EDT Lara Rios [employer] DRIVER-[employer] MIXING OPERATOR LAB BLOOD ORDERABLES Karie l Result Performing Organization Address City/[facility]/ZIP Co de Phone Number [facility] [address] [place] [address], [place] [phone] * Ferritin (11/16/2024 5:37 AM EDT) FERRITIN 236 24 - 336 ng/mL 11/16/2024 6:56 AM EDT [facility] Blood Venous blood / Unknown 11/16/2024 5:37 AM EDT 11/16/2024 6:00 AM EDT Lara Gabriel W[employer] DRIVER-[employer] FE[employer] MIXING OPERATOR LAB BLOOD ORDERABLES Karie l Result [facility] [address] [place] [address], [place] [phone] * (ABNORMAL) Vitamin B12 (11/16/2024 5:37 AM EDT) VITAMIN B12 958(H) 180 - 914 pg/mL 11/16/2024 7:01 AM EDT [facility] Blood Venous blood / Unknown 11/16/2024 5:37 AM EDT 11/16/2024 6:00 AM EDT us Lara Rios W[employer] DRIVER-DAIR[employer] FEED MIXING OPERATOR LAB BLOOD ORDERABLES Karie kenji Result [facility] [address] [place] [address], [place] [phone] * (ABNORMAL) CBC without diff (11/14/2024 5:22 AM EDT) Only the most recent of4 resultswithin the time period is included. WBC 8.1 4 - 11 x10E9/L 11/14/2024 5:53 AM EDT [facility] RBC Count 4.64 4.1 - 5.7 X10E12/L 11/14/2024 5:53 AM EDT [facility] Hemoglobin 12.1(L) 13 - 17 g/dL 11/14/2024 5:53 AM EDT [facility] Hematocrit 36.5(L) 39 - 50 % 11/14/2024 5:53 AM EDT [facility] MCV 79(L) 80 - 100 fL 11/14/2024 5:53 AM EDT [facility] MCH 26.0(L) 27 - 34 pg 11/14/2024 5:53 AM EDT [facility] MCHC 33.0 32 - 36 g/dL 11/14/2024 5:53 AM EDT [facility] RDW 19.2(H) 11.5 - 15 % 11/14/2024 5:53 AM EDT [facility] Platelet Count 80(L) 150 - 450 X10E9/L 11/14/2024 5:53 AM EDT [facility] MPV 6.6(L) 7 - 12 fL 11/14/2024 5:53 AM EDT [facility] Blood Venous blood / Unknown 11/14/2024 5:22 AM EDT 11/14/2024 5:31 AM EDT us Yecenia Kuhn W[employer] DRIVER-[employer] FE[employer] MIXING OPERATOR LAB BLOOD ORDERABLES Fin al Result [facility] [address] [place] [address], [place] [phone] * EGD Report (11/13/2024 11:35 AM EDT) Narrative SYSTEMGENERATED, DOCUMENTATION - 11/13/2024 11:35 AM EDT This order has been auto-finalized for image and report archival in PACs. *For full report details, please reach out to your physician. This image is visible to you in MyChart.* José Geller Alon DO IMG OR IMG ORDERABLES Final Res ult * Fluoroscopy swallow motility function (11/12/2024 8:42 AM EDT) Only the most recent of3 resultswithin the time period is included. Anatomical Region Laterality Modality Chest, Abdomen, Body Radio Fluor oscopy 11/12/2024 8:44 AM EDT Narrative 11/12/2024 9:18 AM EDT FL SWALLOW MOTILITY FUNCTION HISTORY: Oropharyngeal dysphagia COMPARISON: 11/10/2024 TECHNIQUE: Video fluoroscopic swallow study was performed in conjunction with speech pathologist. Barium contrast materials of varying consistencies administered. FINDINGS: Fluoroscopy time: 0.7 minutes Reference air kerma: 1.2 mGy Runs: 6 Thin: Aspiration. Mildly thick: Penetration. Applesauce: Penetration. IMPRESSION: 1. Abnormal swallow study as detailed. 2. Please correlate with dedicated speech pathology report for additional details and recommendations. Approved by Rosie Miguel MD on 11/12/2024 8:44 AM Connor Acosta MD have personally reviewed the image(s) and agree with and/or edited the report Finalized by Connor Pelaez MD on 11/12/2024 9:18 AM Procedure Note Connor Pelaez MD - 11/12/2024 FL SWALLOW MOTILITY FUNCTION HISTORY: Oropharyngeal dysphagia COMPARISON: 11/10/2024 TECHNIQUE: Video fluoroscopic swallow study was performed in conjunctionwith speech pathologist. Barium contrast materials of varyingconsistencies administered. FINDINGS: Fluoroscopy time: 0.7 minutes Reference air kerma: 1.2 mGy Runs: 6 Thin: Aspiration. Mildly thick: Penetration. Applesauce: Penetration. IMPRESSION: 1. Abnormal swallow study as detailed. 2. Please correlate with dedicated speech pathology report for additionaldetails and recommendations. Approved by Rosie Miguel MD on 11/12/2024 8:44 AM I, Connor Pelaez MD have personally reviewed the image(s) and agree withand/or edited the report Finalized by Connor Pelaez MD on 11/12/2024 9:18 AM Nat Myers W[employer]AX[employer]IVER-DA[employer] FEED MIXING OPERATOR IMG FLUOROSCOPY ORDERAB LES Final Result * CK Total (11/12/2024 5:42 AM EDT) Only the most recent of3 resultswithin the time period is included. CPK 26 24 - 195 U/L 11/12/2024 11:31 AM EDT [facility] Blood 11/12/2024 5:42 AM EDT 11/12/2024 5:42 AM EDT Randee Rodriguez W[employer] TAX[employer] DRIVER-DAIRY FEED MIXING OPERATOR LAB BLOOD ORDERABLES Fin al Result Performing Organization Address [facility] Co de Phone Number [facility] [address] [place] [address], [place] [phone] * Lavender Top (11/10/2024 6:38 AM EDT) Only the most recent of2 resultswithin the time period is included. Extra Tube Auto Resulted 11/10/2024 8:02 AM EDT [facility] Blood Venous blood / Unknown 11/10/2024 6:38 AM EDT 11/10/2024 6:55 AM EDT Ester Bajwa MD LAB BLOOD ORDERABLES Final R esult Performing Organization Address City/[facility]/ZIP Co de Phone Number [facility] [address] [place] [address], * PST TOP (11/10/2024 6:38 AM EDT) Only the most recent of3 resultswithin the time period is included. Extra Tube Auto Resulted 11/10/2024 8:02 AM EDT [facility] Blood Venous blood / Unknown 11/10/2024 6:38 AM EDT 11/10/2024 6:55 AM EDT Ester Bajwa MD LAB BLOOD ORDERABLES Final R esult Performing Organization Address [facility] Co de Phone Number [facility] [address] [place] [address], * APTT (11/10/2024 12:08 AM EDT) Only the most recent of4 resultswithin the time period is included. APTT 29 26 - 37 sec 11/10/2024 12:56 AM EDT [facility] Blood 11/10/2024 12:0 8 AM EDT 11/10/2024 12:08 AM EDT Becki Bay WATER TAXI DRIVER-DAIRY FEED MIXING OPERATOR LAB BLOOD ORDERABLES Karie l Result Performing Organization Address City/[facility]/ZIP Co de Phone Number [facility] [address] [place] [address], * Lactate w/ Reflex (11/09/2024 4:13 PM EDT) Only the most recent of8 resultswithin the time period is included. LACTATE W/REFLEX 2.0 0.4 - 2.0 mmol/L 11/09/2024 4:[address] [facility] Blood Venous blood / Unknown 11/09/2024 4:13 PM EDT 11/09/2024 4:[address] [facility] - 11/09/2024 4:45 PM EDT Result did not trigger repeat Lactate, re-order if needed. us Keene Felicita Hattie W[employer] TAX[employer] DRIVER-DAIRY FEED MIXING OPERATOR LAB BLOOD ORDERABLES Fin al Result Performing Organization Address [facility]/ZIP Co de Phone Number [address] [place] [address], [place] * (ABNORMAL) Platelet count (11/09/2024 4:13 PM EDT) Platelet Count 132(L) 150 - 450 X10E9/L 11/09/2024 4:[address] [facility] MPV 6.9(L) 7 - 12 fL 11/09/2024 4:[address] [facility] Blood Venous blood / Unknown 11/09/2024 4:13 PM EDT 11/09/2024 4:20 PM EDT us Yecenia Kuhn W[employer] DRIVER-DAIRY FEED MIXING OPERATOR LAB BLOOD ORDERABLES Fin al Result Performing Organization Address [facility] Co de Phone Number [address] [place] [address], [place] * (ABNORMAL) Hemoglobin (11/09/2024 4:13 PM EDT) Hemoglobin 12.6(L) 13 - 17 g/dL 11/09/2024 4:[address] [facility] Blood Venous blood / Unknown 11/09/2024 4:13 PM EDT 11/09/2024 4:20 PM EDT us Yecenia Kuhn W[employer]AX[employer] DRIVER-DAIRY FEED MIXING OPERATOR LAB BLOOD ORDERABLES Fin al Result Performing Organization Address [facility] Co de Phone Number [address] [place] [address], [place] * (ABNORMAL) Procalcitonin (11/08/2024 3:57 AM EDT) Only the most recent of3 resultswithin the time period is included. PROCALCITONIN 0.62(H) <0.05 ng/mL 11/08/2024 5:[address] [facility] Blood Venous blood / Unknown 11/08/2024 3:57 AM EDT 11/08/2024 4:[address] [facility] - 11/08/2024 5:01 AM EDT <0.50 ng/mL - Low risk of severe sepsis and/or septic shock. <2.00 ng/mL - Recommend retesting within 6-24 hours. >2.00 ng/mL - High risk of sepsis and/or septic shock. us Zaida Jefferson APRN-DAIRY FEED MIXING OPERATOR LAB BLOOD ORDERABLES Final Result [address] [place] [address], [place] * Light Blue Top (11/06/2024 7:12 PM EDT) Extra Tube Auto Resulted 11/06/2024 9:[address] [facility] Blood Venous blood / Unknown 11/06/2024 7:12 PM EDT 11/06/2024 7:18 PM EDT us Flakita Alves MD LAB BLOOD ORDERABLES Final Result [address] [place] [address], [place] * Lower resp/sputum culture inc gram stain: Patient acquired (11/06/2024 4:03 PM EDT) CULTURE RESULTS NORMAL ORAL ASA 11/08/2024 8:42 AM EDT [facility] GRAM STAIN 1 to 9 White Blood Cells/LPF 11/08/2024 8:42 AM EDT [facility] GRAM STAIN 1 to 9 Squamous Epithelial Cells/LPF 11/08/2024 8:42 AM EDT [facility] GRAM STAIN 0 Ciliated Epithelial Cells/LPF 11/08/2024 8:42 AM EDT [facility] GRAM STAIN No organisms seen 11/08/2024 8:42 AM EDT [facility] Bronchial structure / Unknown 11/06/2024 4:03 PM EDT 11/06/2024 4:07 PM EDT Zaida Mcguirewright WATER TAXI DRIVER-[facility] MICROBIOLOGY - GENER AL ORDERABLES Final Result [facility] 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 [place] [address], * (ABNORMAL) POCT Nursing Urine Macroscopic UA (11/05/2024 6:50 PM EDT) POC Urine Specific [place] 1.010 1.010, 1.015, 1.020, 1.025 11/05/2024 6:46 PM EDT [facility] POC Urine Leukocyte Esterase Negative Negative 11/05/2024 6:46 PM EDT [facility] Urine Nitrite Negative Negative 11/05/2024 6:46 PM EDT [facility] Urine pH 6.0 5.0, 6.0, 6.5, 7.0, 7.5, 8.0, 8.5, 5.5 11/05/2024 6:46 PM EDT [facility] Urine Protein 30 mg/dL(A) Negative 11/05/2024 6:46 PM EDT [facility] Urine Glucose 500 mg/dL(A) Negative 11/05/2024 6:46 PM EDT [facility] Urine Ketones Negative Negative 11/05/2024 6:46 PM EDT [facility] Urine Urobilinogen 0.2 E.U./dL 11/05/2024 6:46 PM EDT [facility] Urine Bilirubin Negative Negative 11/05/2024 6:46 PM EDT [facility] Urine Blood/HGB Negative Negative 11/05/2024 6:46 PM EDT [facility] Urine 11/05/2024 6:50 PM EDT 11/05/2024 6:46 PM EDT [facility] DO POINT OF CARE TEST ORDERABLES Fi nal Result Performing Organization Address City/[facility]/ZIP Co de Phone Number [address] [place] [address], [place] * Extra Urine Culture (11/05/2024 6:43 PM EDT) Extra Tube Auto Resulted 11/05/2024 8:02 PM EDT [facility] Urine Urine specimen collection, clean catch / Unknown 11/05/2024 6:43 PM EDT 11/05/2024 7:00 PM EDT [facility] DO URINE ORDERABLES Final Result Performing Organization Address City/[facility] Co de Phone Number [address] [place] [address], [place] * Extra Urine (11/05/2024 6:43 PM EDT) Extra Tube Auto Resulted 11/05/2024 8:02 PM EDT [facility] Urine Urine specimen collection, clean catch / Unknown 11/05/2024 6:43 PM EDT 11/05/2024 7:00 PM EDT us Sarthak Du DO URINE ORDERABLES Final Result [facility] [address] [place] [address], [place] * Blood culture (11/05/2024 12:14 PM EDT) Only the most recent of2 resultswithin the time period is included. CULTURE RESULTS NO GROWTH 5 DAYS 11/10/2024 6:01 PM EDT [facility] Blood Venous blood / Unknown 11/05/2024 12:14 PM EDT 11/05/2024 12:24 PM EDT us Cheo Newell MD MICROBIOLOGY - GENERAL ORDER FROILAN Final Result Performing Organization Address City/[facility]/ZIP Co de Phone Number [facility] [address] [place] [address], [place] [phone] * MR cervical spine with and without contrast (11/05/2024 9:39 AM EDT) Anatomical Region Laterality Modality MSK, Neuro, Spine, C-spine, Spine Covera N/A Magnetic Resonance 11/05/2024 10:1 2 AM EDT Narrative 11/05/2024 10:47 AM EDT MR CERVICAL SPINE W WO CONT HISTORY: Acute neck pain, discitis suspected COMPARISON: CT cervical spine 11/05/2024 TECHNIQUE: Multisequence, multiplanar MRI of the cervical spine performed with and without intravenous contrast. FINDINGS: Marrow edema and decreased T1 signal within the T1 and T2 vertebral bodies, destructive endplate irregularity. Ill-defined peripheral enhancement of the intervertebral disc space, with minimal posterior bulging, no definite intrathecal extension. Adjacent prevertebral soft tissue swelling without discrete/drainable collection. Vertebral body heights and alignment are otherwise maintained. Accentuated cervicothoracic kyphosis. Unremarkable appearance of the visualized intracranial compartment. Unremarkable cervicomedullary junction and visualized cord. No cord edema or pathologic cord enhancement.. Assessment of neural foraminal patency significantly compromised by exaggerated kyphosis and motion. No areas of high-grade thecal sac or neuroforaminal narrowing. Scattered areas of mild to moderate neuroforaminal narrowing, most pronounced at C4-C5, C5-C6. Aberrant right subclavian artery. 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 Mild prevertebral edema without discrete fluid collection. No significant intrathecal extension. Approved by Resident Boris Craig DO on 11/05/2024 10:12 AM Ruperto Acosta MD have personally reviewed the image(s) and agree with and/or edited the report Finalized by Ruperto Perales MD on 11/05/2024 10:47 AM Procedure Note Ruperto Perales MD - 11/05/2024 MR CERVICAL SPINE W WO CONT HISTORY: Acute neck pain, discitis suspected COMPARISON: CT cervical spine 11/05/2024 TECHNIQUE: Multisequence, multiplanar MRI of the cervical spine performedwith and without intravenous contrast. FINDINGS: Marrow edema and decreased T1 signal within the T1 and T2 vertebralbodies, destructive endplate irregularity. Ill-defined peripheralenhancement of the intervertebral disc space, with minimal posteriorbulging, no definite intrathecal extension. Adjacent prevertebral softtissue swelling without discrete/drainable collection. Vertebral body heights and alignment are otherwise maintained. Accentuatedcervicothoracic kyphosis. Unremarkable appearance of the visualized intracranial compartment.Unremarkable cervicomedullary junction and visualized cord. No cord edemaor pathologic cord enhancement.. Assessment of neural foraminal patency significantly compromised byexaggerated kyphosis and motion. No areas of high-grade thecal sac or neuroforaminal narrowing. Scatteredareas of mild to moderate neuroforaminal narrowing, most pronounced atC4-C5, C5-C6. Aberrant right subclavian artery. 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 Mildprevertebral edema without discrete fluid collection. No significantintrathecal extension. Approved by Resident Boris Craig DO on 11/05/2024 10:12 AM Ruperto Acosta MD have personally reviewed the image(s) and agree withand/or edited the report Finalized by Ruperto Perales MD on 11/05/2024 10:47 AM us hCeo Newell MD IMG MRI ORDERABLES Final Res ult * MR lumbar spine without contrast (11/05/2024 9:04 AM EDT) Anatomical Region Laterality Modality MSK, Neuro, Spine, L-spine, Spine Covera N/A Magnetic Resonance 11/05/2024 9:11 AM EDT Narrative 11/05/2024 9:29 AM EDT MR LUMBAR SPINE WO CONT CLINICAL INFORMATION: Acute low back pain COMPARISON: CT abdomen pelvis 11/05/2024 PROCEDURE: Routine lumbosacral spine protocol MRI was obtained without contrast material. Multisequence, multiplanar imaging was obtained. FINDINGS: Numbering assumes 5 lumbar type vertebrae. Mild levoconvex curvature of the lumbar spine. Otherwise, vertebral body heights and alignment are maintained. Degenerative marrow signal throughout. No suspicious marrow signal. The visualized cord is within normal limits. Normal appearance of the cauda equina nerve roots. The conus medullaris terminates at L1. Bilateral renal collecting system dilation. Level by level: L1-L2: Calcified disc osteophyte complex asymmetrically extending into the right foraminal extraforaminal recesses. No significant thecal sac narrowing. Mild right neuroforaminal narrowing. Disc osteophyte complex contacts the exiting right L1 nerve root. L2-L3: Large disc bulge extends into the bilateral subarticular and foraminal recesses. Ligament flavum thickening. Mild thecal sac narrowing. Mild bilateral neuroforaminal narrowing. Disc material contacts the exiting left L2 nerve root. L3-L4: Large disc bulge asymmetrically extends into the right subarticular and foraminal recesses. Mild facet arthropathy. Minimal flattening the ventral thecal sac. Mild to moderate right neuroforaminal narrowing. L4-L5: Large disc bulge effaces the bilateral subarticular and foraminal recesses. Bilateral facet arthropathy. Minimal flattening the ventral thecal sac. Mild to moderate left, moderate right neuroforaminal narrowing. Disc material contacts the bilateral exiting nerve roots. L5-S1: Disc bulge extending in the bilateral extra foraminal recesses. No significant thecal sac or neuroforaminal narrowing. IMPRESSION: * No acute abnormality. * Advanced degenerative changes throughout the lumbar spine, as described. Multifocal areas of foraminal and extraforaminal disc bulging, contacting the exiting nerve roots, most notably at L4-L5. Approved by Resident Boris Craig DO on 11/05/2024 9:11 AM Ruperto Acosta MD have personally reviewed the image(s) and agree with and/or edited the report Finalized by Ruperto Perales MD on 11/05/2024 9:29 AM Procedure Note Ruperto Perales MD - 11/05/2024 MR LUMBAR SPINE WO CONT CLINICAL INFORMATION: Acute low back pain COMPARISON: CT abdomen pelvis 11/05/2024 PROCEDURE: Routine lumbosacral spine protocol MRI was obtained withoutcontrast material. Multisequence, multiplanar imaging was obtained. FINDINGS: Numbering assumes 5 lumbar type vertebrae. Mild levoconvex curvature of the lumbar spine. Otherwise, vertebral bodyheights and alignment are maintained. Degenerative marrow signal throughout. No suspicious marrow signal. The visualized cord is within normal limits. Normal appearance of thecauda equina nerve roots. The conus medullaris terminates at L1. Bilateral renal collecting system dilation. Level by level: L1-L2: Calcified disc osteophyte complex asymmetrically extending into theright foraminal extraforaminal recesses. No significant thecal sacnarrowing. Mild right neuroforaminal narrowing. Disc osteophyte complexcontacts the exiting right L1 nerve root. L2-L3: Large disc bulge extends into the bilateral subarticular andforaminal recesses. Ligament flavum thickening. Mild thecal sac narrowing.Mild bilateral neuroforaminal narrowing. Disc material contacts theexiting left L2 nerve root. L3-L4: Large disc bulge asymmetrically extends into the right subarticularand foraminal recesses. Mild facet arthropathy. Minimal flattening theventral thecal sac. Mild to moderate right neuroforaminal narrowing. L4-L5: Large disc bulge effaces the bilateral subarticular and foraminalrecesses. Bilateral facet arthropathy. Minimal flattening the ventralthecal sac. Mild to moderate left, moderate right neuroforaminalnarrowing. Disc material contacts the bilateral exiting nerve roots. L5-S1: Disc bulge extending in the bilateral extra foraminal recesses. Nosignificant thecal sac or neuroforaminal narrowing. IMPRESSION: * No acute abnormality. * Advanced degenerative changes throughout the lumbar spine, asdescribed. Multifocal areas of foraminal and extraforaminal disc bulging,contacting the exiting nerve roots, most notably at L4-L5. Approved by Resident Boris Craig DO on 11/05/2024 9:11 AM I, Ruperto Perales MD have personally reviewed the image(s) and agree withand/or edited the report Finalized by Ruperto Perales MD on 11/05/2024 9:29 AM us Cheo Newell MD IMG MRI ORDERABLES Final Res ult * MR thoracic spine without contrast (11/05/2024 8:58 AM EDT) Anatomical Region Laterality Modality MSK, Neuro, Spine, T-spine, Spine Covera N/A Magnetic Resonance 11/05/2024 9:00 AM EDT Narrative 11/05/2024 9:08 AM EDT MR THORACIC SPINE WO CONT CLINICAL HISTORY: Back pain possible osteomyelitis COMPARISON: No prior Multiplanar T1 and T2-weighted MR imaging obtained. These note that contrast was not administered which significantly and specificity for detection of osteomyelitis discitis and even more so for potential epidural abscess. FINDINGS: Mild kyphosis of the mid thoracic spine. Alignment is otherwise normal. There is significant intervertebral disc space narrowing in the thoracic spine from T6 through T10 and also had T12-L1. Multiple discs demonstrate some internal increased T2 signal but this is most consistent with degenerative change. Degenerative fatty endplate changes noted at the L2-L3 level. In all thoracic and visualized lumbar vertebral bodies the vertebral body endplate cortex appears intact. No noncontrast MR evidence of osteomyelitis. No evidence of epidural fluid collection/abscess. No signal abnormality within the cord. [birth year]/1980 7654 and T4-T5 there is a very small posterior disc bulge this does not appear to be causing any significant canal stenosis or foraminal narrowing Conus terminates at the T12-L1 level. There is bilateral hydronephrosis. Etiology unknown this was seen on recent CT scan. Please note that the area of suspected osteomyelitis on a CT scan from 11/05/2024 at the T1-T2 level is not seen on this examination and may be present on the patient's MRI of the cervical spine. There is some patchy signal abnormality identified in the posterior right lung which could represent IMPRESSION: * T1-T2 level was not included on this MRI of the thoracic spine. Visualized portions of the thoracic spine from T3 through the lumbar spine on this study demonstrate no evidence of osteomyelitis. Please see cervical spine MRI from same day. * Bilateral hydronephrosis which was seen on recent CT abdomen and pelvis * Increased signal in the posterior right lung which could represent some pneumonia Finalized by Houston George MD on 11/05/2024 9:08 AM Procedure Note Houston George MD - 11/05/2024 MR THORACIC SPINE WO CONT CLINICAL HISTORY: Back pain possible osteomyelitis COMPARISON: No prior Multiplanar T1 and T2-weighted MR imaging obtained. These note thatcontrast was not administered which significantly and specificity fordetection of osteomyelitis discitis and even more so for potentialepidural abscess. FINDINGS: Mild kyphosis of the mid thoracic spine. Alignment is otherwise normal.There is significant intervertebral disc space narrowing in the thoracicspine from T6 through T10 and also had T12-L1. Multiple discs demonstratesome internal increased T2 signal but this is most consistent withdegenerative change. Degenerative fatty endplate changes noted at the L2-L3 level. Inall thoracic and visualized lumbar vertebral bodies the vertebral bodyendplate cortex appears intact. No noncontrast MR evidence ofosteomyelitis. No evidence of epidural fluid collection/abscess. No signalabnormality within the cord. 06/02/1980 7654 and T4-T5 there is a very small posterior discbulge this does not appear to be causing any significant canal stenosis orforaminal narrowing Conus terminates at the T12-L1 level. There is bilateral hydronephrosis. Etiology unknown this was seen onrecent CT scan. Please note that the area of suspected osteomyelitis on a CT scan from11/05/2024 at the T1-T2 level is not seen on this examination and may bepresent on the patient's MRI of the cervical spine. There is some patchy signal abnormality identified in the posterior rightlung which could represent IMPRESSION: * T1-T2 level was not included on this MRI of the thoracic spine.Visualized portions of the thoracic spine from T3 through the lumbar spineon this study demonstrate no evidence of osteomyelitis. Please seecervical spine MRI from same day. * Bilateral hydronephrosis which was seen on recent CT abdomen andpelvis * Increased signal in the posterior right lung which could represent somepneumonia Finalized by Houston George MD on 11/05/2024 9:08 AM [facility] MRI ORDERABLES Final Result * CT brain without contrast (11/05/2024 7:46 AM EDT) Anatomical Region Laterality Modality Neuro, Head, Head and Neck, Neuro Covera N/A Computed Tomography 11/05/2024 8:00 AM EDT Narrative 11/05/2024 8:[address] BRAIN WO CONT: 11/05/2024 7:43 AM CLINICAL INFORMATION: fall, on warfarin TECHNIQUE: CT Head without intravenous contrast. Coronal sagittal reformatted images were also obtained. All CT scans at this facility use dose modulation, iterative reconstruction, and/or weight based dosing when appropriate to reduce radiation dose to as low as reasonably achievable. COMPARISON: No relevant prior studies available. FINDINGS: The ventricular system is normal in caliber. No large vessel territory infarct or acute intracranial hemorrhage. No extra-axial fluid collection. No midline shift. Fuentes-white matter differentiation is maintained. No effacement of the basal cisterns. The calvarium is intact. Paranasal sinuses are well pneumatized. IMPRESSION: * No acute intracranial abnormality Finalized by Dony Cruz MD on 11/05/2024 8:15 AM Procedure Note Dony Cruz MD - 11/05/2024 CT BRAIN WO CONT: 11/05/2024 7:43 AM CLINICAL INFORMATION: fall, on warfarin TECHNIQUE: CT Head without intravenous contrast. Coronal sagittal reformatted imageswere also obtained. All CT scans at this facility use dose modulation, iterativereconstruction, and/or weight based dosing when appropriate to reduceradiation dose to as low as reasonably achievable. COMPARISON: No relevant prior studies available. FINDINGS: The ventricular system is normal in caliber. No large vessel territoryinfarct or acute intracranial hemorrhage. No extra-axial fluidcollection. No midline shift. Fuentes-white matter differentiation ismaintained. No effacement of the basal cisterns. The calvarium isintact. Paranasal sinuses are well pneumatized. IMPRESSION: * No acute intracranial abnormality Finalized by Dony Cruz MD on 11/05/2024 8:15 AM [facility] Du DO IMG CT ORDERABLES Final Result * CT chest with contrast (11/05/2024 7:41 AM EDT) Anatomical Region Laterality Modality Body, Lung, Chest, Body Covera N/A C omputed Tomography 11/05/2024 7:45 AM EDT Narrative 11/05/2024 7:[address] chest with IV contrast on 11/05/2024 HISTORY: Pain, fall COMPARISON: CT chest 09/04/2024 TECHNIQUE: Multiple contiguous 2.5 mm axial images of the chest were obtained after the intravenous administration of 100 mL of Omnipaque 300. Coronal and sagittal 2-D reconstructions were performed. Automated exposure control was utilized. FINDINGS: Mild dilation of the ascending thoracic aorta measuring up to 4.0 cm. Moderate atherosclerotic disease of the aorta with no evidence of acute traumatic aortic injury. Pulmonary artery is dilated to 3.4 cm with no central or segmental embolic filling defects. Heart size is mildly enlarged. Severe coronary artery calcification. No pericardial effusion. Tiny hiatal hernia. Enlarged subcarinal lymph node measuring up to 1.5 cm short axis. Right hilar adenopathy is also noted. Multifocal groundglass infiltrates, most prominently involving the right lung. Trace right pleural fluid. No pneumothorax. Central airways are patent. No significant chest wall lymphadenopathy. Layering density in the gallbladder consistent with cholelithiasis and/or sludge. Partially visualized simple right renal cyst requires no additional evaluation healing right rib fractures. Interval development of bony destructive process centered at the T1-T2 disc space involving the inferior T1 and superior T2 endplates. IMPRESSION: * Multifocal groundglass infiltrates consistent with pneumonia. * Interval development of bony destructive process at the T1-T2 disc space concerning for discitis-osteomyelitis. Recommend thoracic spine MRI with and without IV contrast for further evaluation. * Additional incidental/chronic findings as described. All CT scans at this facility use dose modulation, iterative reconstruction, and/or weight based dosing when appropriate to reduce radiation dose to as low as reasonably achievable. Finalized by Jorge Vu MD on 11/05/2024 7:54 AM Procedure Note Jorge Vu MD - 11/05/2024 CT chest with IV contrast on 11/05/2024 HISTORY: Pain, fall COMPARISON: CT chest 09/04/2024 TECHNIQUE: Multiple contiguous 2.5 mm axial images of the chest wereobtained after the intravenous administration of 100 mL of Omnipaque 300.Coronal and sagittal 2-D reconstructions were performed. Automatedexposure control was utilized. FINDINGS: Mild dilation of the ascending thoracic aorta measuring up to 4.0 cm.Moderate atherosclerotic disease of the aorta with no evidence of acutetraumatic aortic injury. Pulmonary artery is dilated to 3.4 cm with nocentral or segmental embolic filling defects. Heart size is mildlyenlarged. Severe coronary artery calcification. No pericardial effusion. Tiny hiatalhernia. Enlarged subcarinal lymph node measuring up to 1.5 cm short axis.Right hilar adenopathy is also noted. Multifocal groundglass infiltrates, most prominently involving the rightlung. Trace right pleural fluid. No pneumothorax. Central airways arepatent. No significant chest wall lymphadenopathy. Layering density in thegallbladder consistent with cholelithiasis and/or sludge. Partiallyvisualized simple right renal cyst requires no additional evaluationhealing right rib fractures. Interval development of bony destructiveprocess centered at the T1-T2 disc space involving the inferior T1 and superior T2 endplates. IMPRESSION: * Multifocal groundglass infiltrates consistent with pneumonia. * Interval development of bony destructive process at the T1-T2 discspace concerning for discitis-osteomyelitis. Recommend thoracic spine MRIwith and without IV contrast for further evaluation. * Additional incidental/chronic findings as described. All CT scans at this facility use dose modulation, iterativereconstruction, and/or weight based dosing when appropriate to reduceradiation dose to as low as reasonably achievable. Finalized by Jorge Vu MD on 11/05/2024 7:54 AM Sarthak Du [facility] CT ORDERABLES Final Result * CT abdomen and pelvis with contrast (11/05/2024 7:41 AM EDT) Anatomical Region Laterality Modality Body, Abdomen, Body Covera N/A Compu torin Tomography 11/05/2024 7:46 AM EDT Narrative 11/05/2024 7:48 AM EDT STUDY: ABDOMEN AND PELVIS CT WITH CONTRAST CLINICAL HISTORY: Acute abdominal pain fall on warfarin COMPARISON: 08/24/2024. TECHNIQUE: CT abdomen and pelvis was performed utilizing 5 mm axial reconstructions following the uneventful administration of 100 cc Omnipaque 300 nonionic intravenous contrast. Coronal and sagittal reformatted images as well as delayed excretory phase images were obtained and reviewed. Automated exposure control was utilized. FINDINGS: Abdomen: No pleural or pericardial effusion at the lung bases. There is small right related to left pleural effusion with lower lung patchy opacity suggestive of atypical multifocal infectious process. Chest findings reported separately. The liver, adrenal glands, pancreas and spleen appear to be grossly unremarkable. There are some pancreatic parenchymal calcifications in the region of the pancreatic head near the distal common bile duct. There is moderate left and mild right renal collecting system dilatation similar to prior. Small nonobstructing right inferior renal pole calculus. No enlarged mesenteric or retroperitoneal lymph nodes. Atherosclerotic abdominal aorta. Pelvis: The prostate is enlarged. Nonspecific concentric wall thickening of the right aspect of the urinary bladder. Neoplastic process cannot be excluded. Large amount of stool in the colorectal junction. Soft tissue thickening of the left greater than the right inguinal canal may represent sequela of prior surgery. Clinical correlation is recommended. Degenerative changes of the thoracolumbar spine. No vertebral body height loss. IMPRESSION: 1. No definitive acute abdominal or pelvic traumatic visceral injury. 2. Stable moderate left and mild right renal collecting system dilatation. 3. Right nephrolithiasis. 4. Prostate enlargement. 5. Nonspecific eccentric bladder wall thickening of the right urinary bladder wall which could represent chronic changes however neoplastic process cannot be excluded. Correlation is recommended. All CT scans at this facility use dose modulation, iterative reconstruction, and/or weight based dosing when appropriate to reduce radiation dose to as low as reasonably achievable. Finalized by Ruperto Perales MD on 11/05/2024 7:48 AM Procedure Note Ruperto Perales MD - 11/05/2024 STUDY: ABDOMEN AND PELVIS CT WITH CONTRAST CLINICAL HISTORY: Acute abdominal pain fall on warfarin COMPARISON: 08/24/2024. TECHNIQUE: CT abdomen and pelvis was performed utilizing 5 mm axialreconstructions following the uneventful administration of 100 ccOmnipaque 300 nonionic intravenous contrast. Coronal and sagittalreformatted images as well as delayed excretory phase images were obtainedand reviewed. Automated exposure control was utilized. FINDINGS: Abdomen: No pleural or pericardial effusion at the lung bases. There is small rightrelated to left pleural effusion with lower lung patchy opacity suggestiveof atypical multifocal infectious process. Chest findings reportedseparately. The liver, adrenal glands, pancreas and spleen appear to be grosslyunremarkable. There are some pancreatic parenchymal calcifications in theregion of the pancreatic head near the distal common bile duct. There is moderate left and mild right renal collecting system dilatationsimilar to prior. Small nonobstructing right inferior renal pole calculus. No enlarged mesenteric or retroperitoneal lymph nodes. Atherosclerotic abdominal aorta. Pelvis: The prostate is enlarged. Nonspecific concentric wall thickening of theright aspect of the urinary bladder. Neoplastic process cannot beexcluded. Large amount of stool in the colorectal junction. Soft tissue thickening of the left greater than the right inguinal canalmay represent sequela of prior surgery. Clinical correlation isrecommended. Degenerative changes of the thoracolumbar spine. No vertebral body heightloss. IMPRESSION: 1. No definitive acute abdominal or pelvic traumatic visceral injury. 2. Stable moderate left and mild right renal collecting systemdilatation. 3. Right nephrolithiasis. 4. Prostate enlargement. 5. Nonspecific eccentric bladder wall thickening of the right urinarybladder wall which could represent chronic changes however neoplasticprocess cannot be excluded. Correlation is recommended. All CT scans at this facility use dose modulation, iterativereconstruction, and/or weight based dosing when appropriate to reduceradiation dose to as low as reasonably achievable. Finalized by Ruperto Perales MD on 11/05/2024 7:48 AM Sarthak Du DO [facility] [place]LES Final Result * CT cervical spine without contrast (11/05/2024 7:41 AM EDT) Anatomical Region Laterality Modality MSK, Neuro, Spine, C-spine, Spine Covera N/A Computed Tomography 11/05/2024 8:11 AM EDT Narrative 11/05/2024 8:25 AM EDT STUDY: CT CERVICAL SPINE WO CONT INDICATION: fall, weakness. TECHNIQUE: * CT of the cervical spine, was performed without intravenous contrast. Coronal & sagittal MPR images were generated and reviewed. * All CT scans at this facility use dose modulation, iterative reconstruction, and/or weight based dosing when appropriate to reduce radiation dose to as low as reasonably achievable. FINDINGS: New widening, and endplate deformity at the T1-T2 level, which may reflect sequela of subacute fracture. Discitis osteomyelitis is also possible and should be further characterized with MRI. Redemonstrated lucent focus at the C6 vertebral body. Otherwise moderate multilevel degenerative spondylosis with intervertebral disc space narrowing, endplate changes, bilateral facet arthropathy. No significant prevertebral, epidural or paraspinal soft tissue abnormality within limitations of noncontrast CT technique. Bony neuroforaminal stenosis at C5 5 C6, C6-C7 Prominent atherosclerotic disease in the right-sided and vertebral arteries. 4 mm nodule in the left upper lung apex. IMPRESSION: * Abnormal widening, endplate irregularity at the T1-T2 level which is suspicious for discitis osteomyelitis or subacute fracture deformity. Recommend MR cervical spine with contrast for complete characterization. * Similar lucency at the C6 vertebral body, measuring 9 mm. * 4 mm pulmonary nodule in the left upper lobe. Recommend follow-up CT chest in one year. THIS REPORT CONTAINS A SIGNIFICANT RESULT AND/OR RECOMMENDATION, WHICH REQUIRES THE ATTENTION OF THE LICENSED CAREGIVER RESPONSIBLE FOR THIS PATIENT. THEREFORE, I SPECIFICALLY DESIGNATED THIS REPORT TO BE TELEPHONED BY THE RADIOLOGY DEPARTMENT. FINDINGS WERE INSTRUCTED TO BE CALLED TO THE CLINICAL SERVICE ON 11/05/2024 8:24 AM Finalized by Fransico Akbar on 11/05/2024 8:25 AM Procedure Note Fransico Akbar MD - 11/05/2024 STUDY: CT CERVICAL SPINE WO CONT INDICATION: fall, weakness. TECHNIQUE: * CT of the cervical spine, was performed without intravenous contrast.Coronal & sagittal MPR images were generated and reviewed. * All CT scans at this facility use dose modulation, iterativereconstruction, and/or weight based dosing when appropriate to reduceradiation dose to as low as reasonably achievable. FINDINGS: New widening, and endplate deformity at the T1-T2 level, which may reflectsequela of subacute fracture. Discitis osteomyelitis is also possible andshould be further characterized with MRI. Redemonstrated lucent focus at the C6 vertebral body. Otherwise moderate multilevel degenerative spondylosis with intervertebraldisc space narrowing, endplate changes, bilateral facet arthropathy. No significant prevertebral, epidural or paraspinal soft tissueabnormality within limitations of noncontrast CT technique. Bony neuroforaminal stenosis at C5 5 C6, C6-C7 Prominent atherosclerotic disease in the right-sided and vertebralarteries. 4 mm nodule in the left upper lung apex. IMPRESSION: * Abnormal widening, endplate irregularity at the T1-T2 level which issuspicious for discitis osteomyelitis or subacute fracture deformity.Recommend MR cervical spine with contrast for complete characterization. * Similar lucency at the C6 vertebral body, measuring 9 mm. * 4 mm pulmonary nodule in the left upper lobe. Recommend follow-up CTchest in one year. THIS REPORT CONTAINS A SIGNIFICANT RESULT AND/OR RECOMMENDATION, WHICHREQUIRES THE ATTENTION OF THE LICENSED CAREGIVER RESPONSIBLE FOR THISPATIENT. THEREFORE, I SPECIFICALLY DESIGNATED THIS REPORT TO BE TELEPHONED BY THERADIOLOGY DEPARTMENT. FINDINGS WERE INSTRUCTED TO BE CALLED TO THE CLINICAL SERVICE ON 58:24 AM Finalized by Fransico Akbar on 11/05/2024 8:25 AM Sarthak Du DO [facility] [place] ORDERABLES Final Result * (ABNORMAL) Troponin I, High Sensitivity 1 Hour (11/05/2024 6:01 AM EDT) TROPONIN I, HIGH SENSITIVITY 28(H) <21 ng/L 11/05/2024 7:09 AM EDT [facility] Blood Venous blood / Unknown Venipuncture / Unknown 11/05/2024 6:01 AM EDT 11/05/2024 6:03 AM EDT Narrative [facility] - 11/05/2024 7:09 AM EDT Elevations of hs-Troponin may be due to causes other than myocardial ischemia. Recommend serial hs-Troponin testing be performed. For the initial evaluation and management of chest pain patients, refer to the algorithms linked below. Emergency Patient: [email or web address] Inpatient: [email or web address] us Sarthak Du DO LAB BLOOD ORDERABLES Final Resul t [facility] [address] [place] [address], * SARS/FLU A+B/RSV by NAAT/Molecular (M4RT Collection Tube) (11/05/2024 5:04 AM EDT) Pathologist [facility] FLU A PCR Negative Negative 11/05/2024 5:50 AM EDT [facility] FLU B PCR Negative Negative 11/05/2024 5:50 AM EDT [facility] RSV BY PCR Negative Negative 11/05/2024 5:50 AM EDT [facility] SARS COV 2 BY PCR Not Detected Not Detected 11/05/2024 5:50 AM EDT [facility] Swab Nasopharyngeal structure / Unknown 11/05/2024 5:04 AM EDT 11/05/2024 5:12 AM EDT Narrative [facility] - 11/05/2024 5:50 AM EDT The Xpert Xpress SARS-CoV-2/Flu/RSV Plus test is a rapid, multiplexed real-time RT-PCR test intended for the simultaneous qualitative detection and differentiation of SARS-CoV-2, influenza A, influenza B and respiratory syncytial virus (RSV) viral RNA from individuals suspected of respiratory viral infection consistent with COVID-19 by Their healthcare provider. This test has not been validated in asymptomatic patients. The Xpert Xpress SARS-CoV-2 test is intended for use by qualified and trained operators who are performing tests using either GeneX[employer] DX or Gene[employer]pert [employer] systems and is limited to laboratories that meet the CLIA requirements to perform high and moderate complexity tests. The Xpert Xpress SARS-CoV-2/Flu/RSV Plus is only for use under the Food and Drug Administration's Emergency Use Authorization. Results are for the simultaneous detection and differentiation of SARS-CoV-2, influenza A, influenza B and RSV nucleic acids in clinical specimens. SARS-CoV-2, influenza A, influenza B and RSV RNA identified by this test are generally detectable in upper respiratory samples during the acute phase of infection. Positive results are Indicative of the presence of the identified virus, but do not rule out bacterial infection or co-infection with other pathogens not detected by this test. Clinical correlation with patient history and other diagnostic information is necessary to determine patient infection status. The agent detected may not be the definite cause of disease. Negative results do not preclude SARS-CoV-2, influenza A, influenza B and RSV infection and should not be used as the sole basis for treatment or other patient management decisions. Negative results must be combined with clinical observations, patient history and epidemiological information. An Invalid result may occur with specimen-associated inhibition unable to be resolved with specimen repeat. Fact Sheet for Healthcare Providers: https://www.fda.gov/media/347527/download Fact Sheet for Patients: https://www.fda.gov/media/748847/download us Sarthak Du DO MICROBIOLOGY - GENERAL ORDERABLE S Final Result [facility] [address] [place] [address], * (ABNORMAL) Troponin I, High Sensitivity 0 Hour (11/05/2024 4:45 AM EDT) TROPONIN I, HIGH SENSITIVITY 24(H) <21 ng/L 11/05/2024 6:36 AM EDT [facility] Blood Venous blood / Unknown 11/05/2024 4:45 AM EDT 11/05/2024 4:53 AM EDT us Sarthak Du DO LAB BLOOD ORDERABLES Final Resul t [facility] [address] [place] [address], [place] * (ABNORMAL) Erythrocyte Sedimentation Rate (ESR) (11/05/2024 4:45 AM EDT) ESR, Erythrocyte Sedimentation Rate 104(H) 0 - 20 mm/h 11/05/2024 5:52 PM EDT [facility] Blood Venous blood / Unknown 11/05/2024 4:45 AM EDT 11/05/2024 4:53 AM EDT us Cheo Newell MD LAB BLOOD ORDERABLES Final R esult Performing Organization Address City/[facility] Co de Phone Number [facility] [address] [place] [address], [place] [phone] * Thyroid profile includes TSH FT4 (11/05/2024 4:45 AM EDT) FREE T4 1.31 0.61 - 1.60 ng/dL 11/05/2024 6:47 AM EDT [facility] TSH 1.02 0.49 - 4.67 uIU/mL 11/05/2024 6:47 AM EDT [facility] Blood Venous blood / Unknown 11/05/2024 4:45 AM EDT 11/05/2024 4:53 AM EDT us Sarthak Du DO LAB BLOOD ORDERABLES Final Resul t Performing Organization Address City/[facility]/ZIP Co de Phone Number [facility] [address] [place] [address], [place] * (ABNORMAL) C-reactive protein (11/05/2024 4:45 AM EDT) C REACTIVE PROTEIN 10.1(H) <=0.7 mg/dL 11/05/2024 12:09 PM EDT [facility] Blood Venous blood / Unknown 11/05/2024 4:45 AM EDT 11/05/2024 4:53 AM EDT us Cheo Newell MD LAB BLOOD ORDERABLES Final R esult Performing Organization Address [facility] Co de Phone Number [address] [address], [place] * Myoglobin, serum (11/05/2024 4:45 AM EDT) Pathologist [facility] SERUM MYOGLOBIN 68.7 17.4 - 105.7 ng/mL 11/05/2024 6:34 AM EDT [facility] Blood Venous blood / Unknown 11/05/2024 4:45 AM EDT 11/05/2024 4:53 AM EDT Sarthak Du DO LAB BLOOD ORDERABLES Final Resul t Performing Organization Address [facility] Co de Phone Number [address] [address], [place] * Critical Care (11/05/2024 4:44 AM EDT) Sarthak Sosa DO - 11/05/2024 4:44 AM EDT Sarthak Du DO 11/08/2024 6:04 AM Critical Care Performed by: Sarthak Du DO Authorized by: Sarthak Du DO Critical care provider statement: Critical care time (minutes): 33 Critical care time was exclusive of: Separately billable procedures and treating other patients and teaching time Critical care was necessary to treat or prevent imminent or life-threatening deterioration of the following conditions: Cardiac failure Critical care was time spent personally by me on the following activities: Ordering and performing treatments and interventions, ordering and review of radiographic studies, re-evaluation of patient's condition, ordering and review of laboratory studies, obtaining history from patient or surrogate, examination of patient, evaluation of patient's response to treatment, discussions with consultants, development of treatment plan with patient or surrogate and review of old charts I assumed direction of critical care for this patient from another provider in my specialty: no us Sarthak Du DO PROCEDURE/MINOR SURGICAL ORDERAB LES Final Result * Ultrasound retroperitoneal complete (06/21/2024 1:17 PM EST) Anatomical Region Laterality Modality Body Ultrasound 06/22/2024 11:0 4 AM EST Narrative 06/22/2024 11:24 AM EST US RETROPERITONEAL COMPLETE HISTORY: Hydroureter COMPARISON: 09/20/[address] abdomen and pelvis 12/26/2023 TECHNIQUE: Grayscale and color Doppler sonographic images of the urinary bladder and bilateral kidneys. FINDINGS: Right kidney: * 9.9 x 6.3 x 5.4 cm * Cortex: Grossly preserved with normal echogenicity. * Mild hydronephrosis with renal pelvis measuring 2.5 cm. No identified calculi. Left kidney: * 11.3 x 4.7 x 6.3 cm * Cortex: Grossly preserved with normal echogenicity. * Mild hydronephrosis with renal pelvis measuring 2.7 cm. No definitive calculi identified. The urinary bladder is not well-visualized due to patient inability to hold bladder. Ureteral jets are visualized. IMPRESSION: * Significantly limited evaluation due to body habitus/bowel gas and patient inability to hold bladder. * Mild bilateral hydronephrosis without definitive obstructing calculi identified. Approved by Rosie Miguel MD on 06/22/2024 11:04 AM IYash MD have personally reviewed the image(s) and agree with and/or edited the report Finalized by Yash Rinaldi MD on 06/22/2024 11:24 AM Procedure Note Yash Rinaldi MD - 06/22/2024 US RETROPERITONEAL COMPLETE HISTORY: Hydroureter COMPARISON: 09/20/[address] abdomen and pelvis 12/26/2023 TECHNIQUE: Grayscale and color Doppler sonographic images of the urinarybladder and bilateral kidneys. FINDINGS: Right kidney: * 9.9 x 6.3 x 5.4 cm * Cortex: Grossly preserved with normal echogenicity. * Mild hydronephrosis with renal pelvis measuring 2.5 cm. No identifiedcalculi. Left kidney: * 11.3 x 4.7 x 6.3 cm * Cortex: Grossly preserved with normal echogenicity. * Mild hydronephrosis with renal pelvis measuring 2.7 cm. No definitivecalculi identified. The urinary bladder is not well-visualized due to patient inability tohold bladder. Ureteral jets are visualized. IMPRESSION: * Significantly limited evaluation due to body habitus/bowel gas andpatient inability to hold bladder. * Mild bilateral hydronephrosis without definitive obstructing calculiidentified. Approved by Res Stuart Miguel MD on 06/22/2024 11:04 AM I, Yash Rinaldi MD have personally reviewed the image(s) and agree withand/or edited the report Finalized by Yash Rinaldi MD on 06/22/2024 11:24 AM Ruperto Cartagena MD IM US ORDERABLES Final Resu lt * COLONOSCOPY (12/26/2008) [facility] Signature Colonoscopy [place]OS[place] [facility] 12/26/2008 us Scanning Provider External HEALTH MAINTENANCE Ed ited Result - Final [facility] [address] 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 DNR Physician Order 11/29/2024 6:09 AM DNR Physician Order 11/23/2024 9:39 AM Advance Directive 11/09/2024 1:52 PM DNR DNR Physician Order 01/22/2024 10:09 AM * DNRCCA DNI (Latest Code Status on File) Date Activated Date Inactivated Comments 11/09/2024 11:32 PM 11/20/2024 6:15 PM * DNRCCA DNI Date Activated Date Inactivated Comments 11/06/2024 7:35 AM 11/09/2024 11:15 PM * DNRCCA DNI Date Activated Date Inactivated Comments 08/24/2024 10:26 PM 09/06/2024 6:03 PM * DNRCCA DNI Date Activated Date Inactivated Comments 12/26/2023 4:23 PM 01/02/2024 8:59 PM * Full Code Date Activated Date Inactivated Comments 12/26/2023 2:56 PM 12/26/2023 4:23 PM Care Teams Assembler Filters Relationship Specialty Start Date End Date Shabana Adams MD [address] [place] [address] PCP - General Family Medicine 11/05/24
--- OUTSIDE RECORDS SUMMARY | 2024-12-30 06:37 | XMS_ITS | Encounter Summary ---
Author Organization [facility] tem Address [id number] [address] [place] [address] Care Team Providers Care Japanese Interpreter Name Role Phone Shabana Adams MD Primary Care Provider [phone] Reason for Visit * Reason Onset Date Comments Med Refill 08/02/2024 Encounter Details Date Type Department Care Team (Late st Contact Info) Description 08/02/2024 Refill [facility] - Pharmacy Medication Management [address] [place] [address] Corina Hassan, NURSING INFORMATICS CLINICAL ANALYST-BUS STARTER [address] [place] [address] HFrEF (heart failure with reduced ejection fraction) ([facility]) Social History Tobacco Use Types Packs/Day Years Used Date Smoking Tobacco: Former Cigarettes Smokeless Tobacco: Never Alcohol Use Standard Drinks/Week Comments No 0 (1 standard drink = 0.6 oz pur e alcohol) [facility] Utilities Answer Date Recorded In the past 12 months has [employer], gas, oil, or water [employer] threatened to shut off services in your [...] got money to buy more. Never True 06/09/2024 Within the past 12 months th e food we bought just didn't last and we didn't have money to get more. Never True 06/09/2024 Purpose - Life Answer Date Recorded Purpose and direction in life Unknown Sex and Gender Information Value Date Recorded Sex Assigned at Male 11/07/2024 7:23 PM EDT Legal Sex Male 11:27 AM EDT Gender Identity Male 11/07/2024 7:23 PM EDT Sexual Orientation Straight 11/07/2024 7: 23 PM EDT documented as of this encounter Miscellaneous Notes * Telephone Encounter - Shagufta Red RN - 08/02/2024 11:59 PM EST Filled 06/2024 for 6 months documented in this encounter Plan of Treatment Upcoming Encounters Date Type Department Care Team (Late st Contact Info) Description 02/24/2025 11:30 AM EDT Office Visit [facility] [address] [place] [address] Timothy Kang MD [address] [place] [address] 06/02/2025 12:00 PM EST Office Visit [facility] Rheumatology [address] [place] [address] Valeria Gonzalez MD [address] [facility] [address] [place] [address] documented as of this encounter Visit Diagnoses Diagnosis HFrEF (heart failure with reduced ejection fraction) ([facility]) documented in this encounter Additional Health Concerns Infection Onset Date Last Indicated Resolved Time Respiratory Rule-Out 11/05/2024 11/05/2024 025 5:50 AM EDT documented as of this encounter Care Teams Japanese Interpreter Relationship Specialty Start Date End Date Shabana Adams MD [address] [place] [address] PCP - General Family Medicine 11/05/24 documented as of this encounter
--- OUTSIDE RECORDS SUMMARY | 2024-12-30 06:37 | XMS_ITS | Encounter Summary ---
Author Organization [employer] Address [id number] [address] [place] [address] Care Team Providers Care Business Objects Developer Name Role Phone Shabana Adams MD Primary Care Provider [phone] Encounter Details Date Type Department Care Team (Late st Contact Info) Description 02/07/2022 Orders Only [facility] [address] [place] [phone] External, Scanning Provider Social History Tobacco Use [...] have Coronavirus / COVID-19? No / Unsure 02/08/2022 12:53 PM EDT documented as of this encounter Plan of Treatment Upcoming Encounters Date Type Department Care Team (Late st Contact Info) Description 02/24/2025 11:30 AM EDT Office Visit [facility] [address] [place] [address] Timothy Kang MD [address] [place] [address] 06/02/2025 12:00 PM EST Office Visit [facility] Rhe[facility] [address] [place] [phone] Valeria Gonzalez MD [address] [facility] [address] [place] [address] documented as of this encounter Procedures Procedure Name Priority Date/Time Associated Diagnosis Comments MULTIPLE LABS Routine 11/30/2021 LIPID PROFILE Routine 11/30/2021 documented in this encounter Results * Lipid profile (11/30/2021) External Cholesterol 106 MANUALLY TRANSCRIBED RESULTS External Cholesterol:Hdl 3 MANUALLY TRANSCRIBED RESULTS External Hdl Cholesterol 33 MANUALLY TRANSCRIBED RESULTS External Ldl (Calc) 46 MANUALLY TRANSCRIBED RESULTS External Triglycerides 136 MANUALLY TRANSCRIBED RESULTS External Very Low Lipoprotein 27 MANUALLY TRANSCRIBED RESULTS us Scanning Provider External LAB BLOOD ORDERABLES Edited Result - Final Performing Organization Address City/[facility]/ZIP Co de Phone Number MANUALLY TRANSCRIBED RESULTS * Multiple labs (11/30/2021) us Scanning Provider External PA IMAGING Final Result Performing Organization Address City/[facility]/ZIP Co de Phone Number MANUALLY TRANSCRIBED RESULTS documented in this encounter Visit Diagnoses Not on filedocumented in this encounter Additional Health Concerns Infection Onset Date Last Indicated Resolved Time Respiratory Rule-Out 11/05/2024 11/05/2024 025 5:50 AM EDT documented as of this encounter Care Teams Business Objects Developer Relationship Specialty Start Date End Date Shabana Adams MD [address] [place] [address] PCP - General Family Medicine 11/05/24 documented as of this encounter
--- OUTSIDE RECORDS SUMMARY | 2024-12-30 06:37 | XMS_ITS | Encounter Summary ---
Author Organization [employer] tem Address [id number] [address] [place] [address] Care Team Providers Care Bottle House Cleaners Supervisor Name Role Phone Shabana Adams MD Primary Care Provider [phone] Encounter Details Date Type Department Care Team (Late st Contact Info) Description 07/23/2024 Telephone [facility] [address] [facility] [address] [place] [address] Stephanie Blackburn CNA Social History Tobacco Use Types Packs/Day Years Used Date Smoking Tobacco: Former Cigarettes Smokeless Tobacco: Never Alcohol Use Standard Drinks/Week Comments No 0 (1 standard drink = 0.6 oz pur e alcohol) [facility] Utilities Answer Date Recorded In the [...] Cardiology [address] [place] [phone] Timothy Kang MD [address] [place] [address] 06/02/2025 12:00 PM EST Office Visit [facility] [address] [place] [address] Valeria Gonzalez MD [address] [facility] [address] [place] [address] documented as of this encounter Visit Diagnoses Not on filedocumented in this encounter Additional Health Concerns Infection Onset Date Last Indicated Resolved Time Respiratory Rule-Out 11/05/2024 11/05/2024 025 5:50 AM EDT documented as of this encounter Care Teams Bottle House Cleaners Supervisor Relationship Specialty Start Date End Date Shabana Adams MD [address] [place] [address] PCP - General Family Medicine 11/05/24 documented as of this encounter
--- OUTSIDE RECORDS SUMMARY | 2024-12-30 06:37 | XMS_ITS | Encounter Summary ---
Author Organization [facility] Address [address] [place] [address] Care Team Providers Care Fruit Farmer Name Role Phone Shabana Adams MD Primary Care Provider [phone] Carey Mckinney RN Unavailable [phone] Kristal Johnson MANAGER FIELD SERVICE Unavailable [phone] Encounter Details Date Type Department Care Team (Late st Contact Info) Description 07/24/2024 Abstract [facility] [address] [place] [address] Shabana Adams MD [address] [place] [address] Social History Tobacco Use Types [...] Never 01/29/2024 How often do you attend uatsdin or catholic serv ices? Never 01/29/2024 Do you belong to any clubs o r organizations such as uatsdin groups, unions, fraternal or athletic groups, or [...] Answer Date Recorded Patient Health Questionnaire-2 Score 2 01/29/2024 [facility] - Occupational Stress [...] place to sleep or slept in a penitentiary (including now)? No 12/04/2022 Housing Stability Vital Sign Answer Andrew e Recorded In the last 12 months, was t here a time when you were not able to pay the mortgage or rent on time? No 01/29/2024 Number of Times Moved in the Last Year Not on fi le 01/29/2024 At any time in the past 12 m [facility], were you homeless or living in a penitentiary (including now)? No 01/29/2024 Sex and Gender [...] Visit [facility] [address] [place] [address] Jr. Lefty Palma, DO [address] [place] [address] [place] [address] documented as of this encounter Goals Goal [...] documented as of this encounter Care Teams Fruit Farmer Relationship Specialty Start Date End Date Shabana Adams MD [address] [place], [place] [phone] PCP - General Family Medicine 11/14/22 Kristal Johnson NP [address] [place] [address] PCP - ACO Reach 08/22/23 Carey Mckinney, JOSE [address] [place] [address] Registered Nurse Family Medicine 10/06/23 documented as of this encounter
--- OUTSIDE RECORDS SUMMARY | 2024-12-30 06:37 | XMS_ITS | Encounter Summary ---
Author [id number] [address] [place] [address] Care Team Providers Care Supervisor Cabinetmaker Name Role Phone Shabana Adams MD Primary Care Provider [phone] Encounter Details Date Type Department Care Team (Late st Contact Info) Description 06/25/2024 Telephone [facility] [address] [facility] [address] [place] [address] Stephanie Blackburn CNA Social History Tobacco Use Types Packs/Day Years Used Date Smoking Tobacco: Former Cigarettes Smokeless Tobacco: Never Alcohol Use Standard Drinks/Week Comments No 0 (1 standard drink = 0.6 oz pur e alcohol) [facility] Utilities Answer Date Recorded In the past [...] Cardiology [address] [place] [address] Timothy Kang MD [address] [place] [address] 06/02/2025 12:00 PM EST Office Visit [facility] [address] [place] [address] Valeria Gonzalez MD [address] [facility] [address] [place] [address] documented as of this encounter Visit Diagnoses Not on filedocumented in this encounter Additional Health Concerns Infection Onset Date Last Indicated Resolved Time Respiratory Rule-Out 11/05/2024 11/05/2024 025 5:50 AM EDT documented as of this encounter Care Teams Supervisor Cabinetmaker Relationship Specialty Start Date End Date Shabana Adams MD [address] [place] [address] PCP - General Family Medicine 11/05/24 documented as of this encounter
--- OUTSIDE RECORDS SUMMARY | 2024-12-30 06:37 | XMS_ITS | Encounter Summary ---
Author Organization [facility] Address [address] [place] [address] Care Team Providers Care Benzol Operator Name Role Phone Shabana Adams MD Primary Care Provider [phone] Carey Mckinney RN Unavailable [phone] Kristal Johnson COIL MACHINE OPERATOR Unavailable [phone] Encounter Details Date Type Department Care Team (Late st Contact Info) Description 07/24/2024 Abstract [facility] [address] [place] [address] Shabana Adams MD [address] [place] [address] Social History Tobacco Use Types [...] How often do you attend confucianist or adventism serv ices? Never 01/29/2024 Do you belong [...] Recorded Patient Health Questionnaire-2 Score 2 01/29/2024 [facility] Occupat ional Health - Occupational [...] place to sleep or slept in a group home (including now)? No 12/04/2022 Housing Stability Vital Sign Answer Andrew e Recorded In the last 12 months, was t here a time when you were not able to pay the mortgage or rent on time? No 01/29/2024 Number of Times Moved in the Last Year Not on fi le 01/29/2024 At any time in the past 12 m [facility], were you homeless or living in a group home (including now)? No 01/29/2024 Sex and Gender [...] Visit [facility] [address] [place] [address] Jr. Lefty Palma, DO [address] [place] [address] [place] [address] documented as of this encounter Goals Goal [...] documented as of this encounter Care Teams Benzol Operator Relationship Specialty Start Date End Date Shabana Adams MD [address] [place], [place] [address] PCP - General Family Medicine 11/14/22 Kristal Johnson NP [address] [place] [address] PCP - ACO Reach 08/22/23 Carey Mckinney, JOSE [address] [place] [address] Registered Nurse Family Medicine 10/06/23 documented as of this encounter
[2024-12-30] MEDS: AMIODARONE IN DEXTROSE,ISO-OSM 150 MG/100 ML PIGGYBACK 600 MG IV (06:38)
--- OUTSIDE RECORDS SUMMARY | 2024-12-30 06:38 | XMS_ITS | Encounter Summary ---
Author Organization [facility] Address [address] [place] [address] Care Team Providers Care Laboratory Asst Name Role Phone Shabana Adams MD Primary Care Provider [phone] Carey Mckinney RN Unavailable [phone] Kristal Johnson NETWORK ASSOCIATE Unavailable [phone] Encounter Details Date Type Department Care Team (Late st Contact Info) Description 12/20/2024 Patient Outreach [facility] [address] [place] [address] Brittney Brown LPN Social History Tobacco Use [...] Never 01/29/2024 How often do you attend protestant or sabianism serv ices? Never 01/29/2024 Do you belong to any clubs o r organizations such as protestant groups, unions, fraternal or athletic groups, or [...] Recorded Patient Health Questionnaire-2 Score 0 10/15/2024 [facility] ional Health - Occupational Stress [...] place to sleep or slept in a residential (including now)? No 12/04/2022 Housing Stability Vital Sign Answer Andrew e Recorded In the last 12 months, was t here a time when you were not able to pay the mortgage or rent on time? No 01/29/2024 Number of Times Moved in the Last Year Not on fi le 01/29/2024 At any time in the past 12 m [facility], were you homeless or living in a residential (including now)? No 01/29/2024 Sex and Gender Information Value Date Recorded Sex Assigned at Male 10/12/2024 3:15 PM EDT Legal Sex Male 8:15 PM EDT Gender Identity Male 09/04/2022 8:15 PM EDT Sexual Orientation Straight 10/12/2024 3: 15 PM EDT documented as of this encounter Progress Notes * Brittney Brown LPN - 12/20/2024 10:38 AM EDT <December 20, 2024, 10:39 - Brittney Brown LPN> Called Sumit at [facility] and spoke with the nurse that is taking care of him today and she statesthat he is a min assist with 1 person with wheeled walker. Antibiotics are completed. He is still getting tube feeds with free water trial protocol so working towards poss oral intake. No dc date yet. * Kristal Johnson NP - 12/20/2024 10:38 AM EDT Noted thanks * Carey Mckinney RN - 12/20/2024 10:38 AM EDT noted documented in this encounter Plan of Treatment Upcoming Encounters Date Type Department Care Team (Late st Contact Info) Description 03/14/2025 1:30 PM EDT Office Visit [facility] [address] [place] [address] Jr. Lefty Palma DO [address] [facility] [address] [place] [address] documented as of this encounter Goals Goal Patient Goal Type Associated Problems Recent Progress Patient-Stated? Author Help patient manage antidepressant medication Care Plan Patient on antidepressant monitoring plan No Mananmoody Radha documented as of this encounter Visit Diagnoses Not on filedocumented in this encounter Additional Health Concerns Active Problems Noted Date Diagnosed Date Patient on antidepressant monitoring plan 2022 Assessment Noted Time PHQ-9 Depression Total Score: 0 12/08/19 24 9:00 AM EDT documented as of this encounter Care Teams Laboratory Asst Relationship Specialty Start Date End Date Shabana Adams MD [address] [place], [place] [phone] PCP - General Family Medicine 11/14/22 Kristal Johnson NP [address] [place], [place] [address] PCP - ACO Reach 08/22/23 Carey Mckinney, RN [address] [place] [address] Registered Nurse Family Medicine 10/06/23 documented as of this encounter
--- OUTSIDE RECORDS SUMMARY | 2024-12-30 06:38 | XMS_ITS | Encounter Summary ---
Author Organization [facility] [employer] Address [id number] [address] [place] [address] Care Team Providers Care Paste Mixer Liquid Name Role Phone Shabana Adams MD Primary Care Provider [phone] Encounter Details Date Type Department Care Team (Late st Contact Info) Description 05/07/2024 Telephone [facility] [address] [facility] [address] [place] [address] Stephanie Blackburn CNA Social History Tobacco Use Types Packs/Day Years Used Date Smoking Tobacco: Former Smokeless Tobacco: Never Alcohol Use Standard Drinks/Week Comments No 0 (1 standard drink = 0.6 oz pur e alcohol) [facility] Utilities Answer Date Recorded In the [...] got money to buy more. Never True 05/06/2024 Within the past 12 months th e food we bought just didn't last and we didn't have money to get more. Never True 05/06/2024 Purpose - Life Answer Date Recorded Purpose [...] Cardiology [address] [place] [address] Timothy Kang MD [address] [place] [address] 06/02/2025 12:00 PM EST Office Visit [facility] [address] [place] [address] Valeria Gonzalez MD [address] [facility] [address] [place] [address] documented as of this encounter Visit Diagnoses Not on filedocumented in this encounter Additional Health Concerns Infection Onset Date Last Indicated Resolved Time Respiratory Rule-Out 11/05/2024 11/05/2024 025 5:50 AM EDT documented as of this encounter Care Teams Paste Mixer Liquid Relationship Specialty Start Date End Date Shabana Adams MD [address] [place] [address] PCP - General Family Medicine 11/05/24 documented as of this encounter
--- OUTSIDE RECORDS SUMMARY | 2024-12-30 06:38 | XMS_ITS | Encounter Summary ---
Author Organization [facility] Address [address] [place] [address] Care Team Providers Care Gang Supervisor Name Role Phone Shabana Adams MD Primary Care Provider [phone] Shabana Adams MD Unavailable [phone] Carey Mckinney RN Unavailable [phone] Kristal Johnson NP Unavailable [phone] Encounter Details Date Type Department Care Team (Late st Contact Info) Description 12/06/2022 Orders Only [facility] [address] [place] [address] Jumana Huston NP [address] [facility] [address] [place] [phone] Social History Tobacco Use Types Packs/Day Years [...] week 12/04/2022 How often do you attend confucianism or episcopal serv ices? Never 12/04/2022 Do you belong to any clubs o r organizations such as confucianism groups, unions, fraternal or athletic groups, or [...] Recorded Patient Health Questionnaire-2 Score 0 12/05/2022 [facility] [...] place to sleep or slept in a longterm (including now)? No 12/04/2022 Sex and Gender Information Value Date Recorded Sex Assigned at Male 10/12/2024 3:15 PM EDT Legal Sex Male 8:15 PM EDT Gender Identity Male 09/04/2022 8:15 PM EDT Sexual Orientation Straight 10/12/2024 3: 15 PM EDT COVID-19 Exposure Response Date Recorded In the last 10 days, have yo u been in contact with someone who was confirmed or suspected to have Coronavirus/COVID-19? No / Unsure 12/04/2022 9:48 AM EDT documented as of this encounter Plan of Treatment Upcoming Encounters Date Type Department Care Team (Late st Contact Info) Description 03/14/2025 1:30 PM EDT Office Visit [facility] [address] [place] [address] Jr. Lefty Palma, DO [address] [facility] [address] [place] [address] documented as of this encounter Visit Diagnoses Not on filedocumented in this encounter Additional Health Concerns Assessment Noted Time PHQ-9 Depression Total Score: 0 12/06/19 1:06 PM EDT documented as of this encounter Care Teams Gang Supervisor Relationship Specialty Start Date End Date Shabana Adams MD [address] [place], [place] [phone] PCP - General Family Medicine 11/14/22 Shabana Adams MD [address] [place] [address] PCP - ACO Reach 11/14/22 08/21/23 Kristal Johnson NP [address] [place], [place] [id number] PCP - ACO Reach 08/22/23 Carey Mckinney RN [address] [facility] [place] [address] Registered Nurse Family Medicine 10/06/23 documented as of this encounter
--- OUTSIDE RECORDS SUMMARY | 2024-12-30 06:39 | XMS_ITS | CCD ---
Author Organization [facility] Care Team Providers Care Communications Editor Name Role Phone Shabana Costello MD Primary Care Provider Shabana Costello MD Unavailable [phone] Faye RN, Crystal Unavailable Elizabeth DIRECTOR OF MUSIC, Kristal Martins Unavailable Shabana Costello MD Primary Care Provider Shabana Costello MD Primary Care Provider [phone] FABIÁN BISHOP Attending Unavailable SHABANA COSTELLO Referring Unavailable SHABANA COSTELLO Primary Care Unavailable FABIÁN BISHOP Attending Unavailable SHABANA COSTELLO Referring Unavailable SHABANA COSTELLO Primary Care Unavailable ARASH DRAKE Attending Unavailable SHABANA COSTELLO Referring Unavailable PRAVINSHABANA VERA Primary Care Unavailable ARASH DRAKE Attending Unavailable SHABANA COSTELLO Referring Unavailable SHABANA COSTELLO Primary Care Unavailable FABIÁN BISHOP Attending Unavailable SHABANA COSTELLO Referring Unavailable PRAVINSHABANA Primary Care Unavailable NITISH EPSTEIN I Attending Unavailable PRAVINSHABANA VERA Referring Unavailable PRAVINSHABANA VERA Primary Care Unavailable SUNIL HERNANDEZ Attending Unavailable SHABANA COSTELLO Attending Unavailable UZMA CAMPOVERDE Attending Unavailab UZMA Price Referring Unavailab le SHABANA COSTELLO Referring Unavailable KRISTAL JOHNSON Attending Unavailab SUNIL Phan Attending Unavailable UZMA CAMPOVERDE Attending Unavailab le KRISTAL JOHNSON Attending Unavailab le UZMA CAMPOVERDE Referring Unavailab le PRAVIN, SHABANA Attending Unavailable JR. ALIE, CAMRON Zelaya Attending Unavaila ble JR. ALIE, CAMRON Zelaya Referring Unavaila SUNIL Moss Attending Unavailable ELIZABETH, KRISTAL Martins Attending Unavailab KRISTAL David Attending Unavailab Shabana Ayers MD Primary Care Provider [phone] SERVICE, JOBST Referring Unavailable SHABANA COSTELLO Primary Care Unavailable SERVICE, JOBST Referring Unavailable SHABANA COSTELLO Primary Care Unavailable SERVICE, JOBST Referring Unavailable SHABANA COSTELLO Primary Care Unavailable SERVICE, JOBST Referring Unavailable SHABANA COSTELLO Primary Care Unavailable SERVICE, JOBST Referring Unavailable SHABANA COSTELLO Primary Care Unavailable SERVICE, JOBST Referring Unavailable SHABANA COSTELLO Primary Care Unavailable SERVICE, JOBST Referring Unavailable SHABANA COSTELLO Primary Care Unavailable SERVICE, JOBST Referring Unavailable SHABANA COSTELLO Primary Care Unavailable SHABANA COSTELLO Referring Unavailable SHABANA COSTELLO Primary Care Unavailable SHABANA COSTELLO Primary Care Unavailable YVAN HENRY Attending Unavailable ERIS RODRIGUEZ Admitting Unavailable NORMA PEREZ Consulting Unavailable ARASH DRAKE Consulting Unavailable JUJU PAINTING Consulting Unavaila FABIÁN Swanson Consulting Unavailable [facility], [facility] Consulting Unavailable HERNÁN REDD Attending Unavailable HERNÁN REDD Referring Unavailable SHABANA COSTELLO Primary Care Unavailable SERVICE, JOBST Referring Unavailable SHABANA COSTELLO Primary Care Unavailable ANDERSON, MOHAMMED Attending Unavailable SHABANA COSTELLO Referring Unavailable SHABANA COSTELLO Primary Care Unavailable ANDERSON, MOHAMMED Referring Unavailable SHABANA COSTELLO Primary Care Unavailable ANDERSON, MOHAMMED Referring Unavailable SHABANA COSTELLO G Primary Care Unavailable ANDERSON, MOHAMMED Referring Unavailable SHABANA COSTELLO Primary Care Unavailable ANDERSON, MOHAMMED Referring Unavailable SHABANA COSTELLO Primary Care Unavailable SHABANA COSTELLO Referring Unavailable SHABANA COSTELLO Primary Care Unavailable CORINA HASSAN Attending Unavailable TIMOTHY KANG Referring Unavailable SHABANA COSTELLO Primary Care Unavailable SID ANNI M Admitting Unavailable SID BROWNYOLY M Attending Unavailable SHABANA COSTELLO Primary Care Unavailable NABIL DSOUZA Attending Unavailable SHABANA COSTELLO Primary Care Unavailable SID, BROWNYOLY M Attending Unavailable ANNI ALU Referring Unavailable SHABANA COSTELLO Primary Care Unavailable CORINA HASSAN Referring Unavailable SHABANA COSTELLO Primary Care Unavailable SHABANA COSTELLO Referring Unavailable SHABANA COSTELLO Primary Care Unavailable SERVICE, JOBST Referring Unavailable SHABANA COSTELLO Primary Care Unavailable SHABANA COSTELLO Referring Unavailable SHABANA COSTELLO Primary Care Unavailable SERVICE, JOBST Referring Unavailable SHABANA COSTELLO Primary Care Unavailable SERVICE, JOBST Referring Unavailable SHABANA COSTELLO Primary Care Unavailable SERVICE, JOBST Referring Unavailable SHABANA COSTELLO Primary Care Unavailable SERVICE, JOBST Referring Unavailable SHABANA COSTELLO Primary Care Unavailable SHABANA COSTELLO Referring Unavailable SHABANA COSTELLO Primary Care Unavailable SERVICE, JOBST Referring Unavailable SHABANA COSTELLO Primary Care Unavailable SERVICE, JOBST Referring Unavailable SHABANA COSTELLO Primary Care Unavailable CHRISTIAN NINO Attending Unavailable SHABANA COSTELLO Referring Unavailable SHABANA COSTELLO Primary Care Unavailable SERVICE, JOBST Referring Unavailable SHABANA COSTELLO Primary Care Unavailable CORINA HASSAN Attending Unavailable SHABANA COSTELLO Referring Unavailable SHABANA COSTELLO Primary Care Unavailable SERVICE, JOBST Referring Unavailable SHABANA COSTELLO Primary Care Unavailable SHABANA COSTELLO Referring Unavailable SHABANA COSTELLO Primary Care Unavailable MYLENE HARLEY Referring Unavailable SHABANA COSTELLO Primary Care Unavailable SERVICE, JOBST Referring Unavailable SHABANA COSTELLO Primary Care Unavailable FABIÁN BISHOP Referring Unavailable SHABANA COSTELLO Primary Care Unavailable FABIÁN BISHOP Attending Unavailable FABIÁN BISHOP Referring Unavailable SHABANA COSTELLO Primary Care Unavailable HARIRI, IMAD M Referring Unavailable PRAVIN SHABANA Young Primary Care Unavailable [facility], [facility] Referr ing Unavailable SHABANA COSTELLO Primary Care Unavailable [facility], [facility] Referr ing Unavailable SHABANA COSTELLO Primary Care Unavailable HARIRI, IMAD M Referring Unavailable SHABANA COSTELLO Primary Care Unavailable [facility], [facility] Referr ing Unavailable SHABANA COSTELLO Primary Care Unavailable [facility], [facility] Referr ing Unavailable SHABANA COSTELLO Primary Care Unavailable CORINA HASSAN Attending Unavailable PRAVIN SHABANA Hector Referring Unavailable SHABANA COSTELLO Primary Care Unavailable [facility], [facility] Referr ing Unavailable SHABANA COSTELLO Primary Care Unavailable [facility], [facility] Referr ing Unavailable PRAVIN, SHABANA Young Primary Care Unavailable HARIRI, IMAD M Referring Unavailable PRAVIN SHABANA Young Primary Care Unavailable PRAVIN, SHABANA Young Referring Unavailable PRAVIN, SHABANA Young Primary Care Unavailable FABIÁN BISHOP Admitting Unavailable FABIÁN BISHOP Attending Unavailable FABIÁN BISHOP Referring Unavailable PRAVIN SHABANA G Primary Care Unavailable JERRI BRUNNER Attending Unavailable SHABANA COSTELLO Hector Referring Unavailable PRAVIN SHABANA Young Primary Care Unavailable [facility], [facility] Referr ing Unavailable PRAVIN, SHABANA Young Primary Care Unavailable [facility], [facility] Referr ing Unavailable PRAVIN SHABANA Young Primary Care Unavailable MARK BRUNNERSI Attending Unavailable MARK BRUNNERSI Referring Unavailable PRAVIN, SHABANA Young Primary Care Unavailable PRAVIN, SHABANA Hector Primary Care Unavailable ISAK JONES Attending Unavailable PRAVIN SHABANA Hector Primary Care Unavailable DESTINEE ALLEN Attending Unavailable TERRENCE CERVANTES Admitting Unavailable RICHMOND SALDIVAR Admitting Unavailable ARASH KWAN Referring Unavailable PRAVIN, SHABANA Hector Primary Care Unavailable RONNA PERAZA Consulting Unavailable TERRENCE CERVANTES Attending Unavailable ONLY), [facility] (INPATIENT Consult ing Unavailable DESTINEE COLÓN Consulting Unavailable [facility], [facility] Consulting Unavailable ELSA KEITA Consulting Unavailable DEEPTHI PRICE Consulting Unavailable ARASH DRAKE Referring Unavailable LYRIC COSTELLOJOHN Young Primary Care Unavailable LYRIC COSTELLONIFER Hector Primary Care Unavailable NORRIS GOMEZ Admitting Unavailable NORRIS GOMEZ Attending Unavailable LISA YEAGER Consulting Unavailable ISAK JONES Referring Unavailable LYRIC COSTELLONIFER Hector Primary Care Unavailable QUYEN SEAY Referring Unavailab le PRAVINSHABANA VERA Primary Care Unavailable PRAVINSHABANA VERA Hector Referring Unavailable PRAVINSHABANA VERA Hector Primary Care Unavailable NORRIS GOMEZ Referring Unavailable PRAVINSHABANA Primary Care Unavailable DESTINEE ALLEN Referring Unavailable PRAVIN SHABANA Young Primary Care Unavailable MADISON THOMAS Admitting Unavailable HELEN, TERRENCE U Referring Unavailable LYRIC COSTELLOJOHN Young Primary Care Unavailable ELSA KEITA Consulting Unavailable HELEN TERRENCE U Attending Unavailable RONNA PERAZA Consulting Unavailable AMARIS PUCKETT Consulting Unavailable CHETAN JEONG Consulting Unavailable CHEL ALBARRAN Consulting Unavailable CARLOS HALL Consulting UnavailBRIAN Castillo Consulting Unavailable HELEN, TERRENCE U Referring Unavailable SHABANA COSTELLO Hector Primary Care Unavailable MADISON THOMAS Referring Unavailable PRAVIN, SHABANA G Primary Care Unavailable Allergies Allergy Classification Reported Allergen(s) Allergy Type Date of Onset Reaction(s) Facility (20 sources) celecoxib; Translations: [CELECOXIB] Drug Allergy 7 Unknown [facility] (1 source) metFORMIN Drug Allergy 3 Diarrhea [facility] (20 sources) Niacin; Translations: [NIACIN] Drug Allergy 7 Unknown [facility] (20 sources) prasugrel; Translations: [PRASUGREL] Drug Allergy 7 Unknown, Other (See Comments), Rash [facility] Healthcare (20 sources) celecoxib Drug Allergy 7 Dizziness [facility] ([facility] sources) Niacin Drug Allergy [address] [facility] Medications Current Medications Medication Drug Class(es) Dates Sig (Normalized) Sig (Original) acetaminophen 500 mg oral tablet (20 sources) Start: 11-20-2024 take 1 tablet enteral route every six hours as needed for pain and headache and fever acetaminophen (TYLENOL EXTRA STRENGTH) 500 mg tablet Administer 1 tablet (500 mg total) per tube every 6 (six) hours as needed for pain, headaches or fever. 11/20/2024 Active Start: 01-02-2024 take 2 tablets by mo uth every six hours as needed for fever and headache and pain acetaminophen (TYLENOL) 325 mg tablet Take 2 tablets (650 mg total) by mouth every 6 (six) hours as needed for fever, headaches or pain. 30 tablet 01/02/2024 Suspended take 2 tablets by mo uth every four hours as needed for pain acetaminophen (Tylenol) 325 MG tablet Take 650 mg by mouth every 4 (four) hours if needed for mild pain Active [id number] 200 actuat albuterol 0.09 mg/actuat metered dose inhaler (20 sources) beta2-Adrenergic Agonist Start: 11-21-2023 End: 11-20-2024 take 2 puff(s) by inhalation every four hours for wheezing albuterol HFA 90 mcg/act inhaler Indications: Wheezing Inhale 2 puffs every 4 (four) hours if needed for wheezing 18 g 11/21/2023 11/20/2024 Active amoxicillin 500 mg oral capsule (20 sources) Penicillin-class Antibacterial Start: 08-15-2023 End: 08-22-2023 take 1 capsule by mouth in the morning, then take 1 capsule by mouth at bedtime amoxicillin (AMOXIL) 500 mg capsule Take 1 capsule (500 mg total) by mouth in the morning and 1 capsule (500 mg total) before bedtime. Do all this for 7 days. 14 capsule 0 08/15/2023 08/22/2023 Active Start: 02-10-2023 take 4 tablets by mo uth once at mealtime amoxicillin (Amoxil) 500 MG tablet Indications: History of total knee replacement, right 4 tabs PO once 30-60 mins before procedure with food 4 tablet 3 02/10/2023 Active End: 11-07-2023 take 1 capsule by mouth once as needed amoxicillin (AMOXIL) 500 mg capsule Take 1 capsule (500 mg total) by mouth once. PRN dental procedures 11/07/2023 Discontinued (Therapy completed) amoxicillin 500 mg / clavulanate 125 mg oral tablet (1 source) Penicillin-class Antibacterial Start: 01-02-2024 End: 2024 take 1 tablet by mouth once in the morning amoxicillin-pot clavulanate (AUGMENTIN) 500-125 mg per tablet Take 1 tablet by mouth in the morning and 1 tablet before bedtime. Do all this for 10 days. 20 tablet 01/02/2024 2024 Active aspirin 81 mg delayed release oral tablet (20 sources) Platelet Aggregation Inhibitor, Nonsteroidal Anti-inflammatory Drug Start: 01-08-2024 take 1 tablet by mouth in the morning aspirin 81 mg Take 1 tablet (81 mg total) by mouth in the morning. 30 tablet 11 01/08/2024 Active Start: 01-08-2024 take 1 tablet by mariah th in the morning aspirin 81 mg Take 1 tablet (81 mg total) by mouth in the morning. 30 tablet 11 01/08/2024 Active Start: 11-28-2023 take 1 tablet by mariah th once daily aspirin 81 MG EC tablet 1 tablet DAILY (route: oral) 11/28/2023 Active take 1 tablet by mariah th in the morning aspirin 81 mg Take 1 tablet (81 mg total) by mouth in the morning. 30 tablet 11 Active ASPIRIN 81 MG ch ewable tablet Aspirin 81 0 Active azithromycin 250 mg oral tablet (3 sources) Macrolide Antimicrobial Start: 11-02-2024 azithromycin (Zithromax) 250 MG tablet Indications: Acute left otitis media , Bronchitis Take 2 tablets (500mg) by mouth on day 1, then 1 tablet (250mg) by mouth on days 2-5. 6 tablet 11/02/2024 Active Start: 11-02-2024 azithromycin ( Zithromax) 250 MG tablet Indications: Acute left otitis media , Bronchitis Take 2 tablets (500mg) by mouth on day 1, then 1 tablet (250mg) by mouth on days 2-5. 6 tablet 11/02/2024 Active bumetanide 1 mg oral tablet (20 sources) Loop Diuretic Start: 11-21-2024 bumetanide (BU JOHN) 1 mg tablet Administer 1 tablet (1 mg total) per tube daily. 11/21/2024 Active Start: 05-06-2024 End: 07-26-2024 take 1 tablet by mouth in the morning bumetanide (Bumex) 1 MG tablet Take 1 mg by mouth in the morning and 1 mg in the evening. 05/06/2024 Active carvedilol 25 mg oral tablet (20 sources) alpha-Adrenergic Jeferson, beta-Adrenergic Jeferson Start: 10-16-2022 End: 07-28-2023 take 1 tablet by mouth in the morning, then take 1 tablet by mouth at bedtime carvediloL (COREG) 25 mg tablet Take 1 tablet (25 mg total) by mouth in the morning and 1 tablet (25 mg total) before bedtime. 180 tablet 3 07/28/2023 Active carvedilol (Core g) 25 MG tablet every 12 (twelve) hours. 0 Active cefadroxil 500 mg oral capsule (8 sources) Cephalosporin Antibacterial Start: 06-14-2024 End: 06-21-2024 take 1 capsule by mouth in the morning, then take 1 capsule by mouth at bedtime cefaDROXil (DURICEF) 500 mg capsule Take 1 capsule (500 mg total) by mouth in the morning and 1 capsule (500 mg total) before bedtime. Do all this for 7 days. 14 capsule 06/14/2024 06/21/2024 Active Start: 03-22-2024 End: 03-29-2024 take 1 capsule by mouth in the morning, then take 1 capsule by mouth at bedtime cefaDROXil (DURICEF) 500 mg capsule Take 1 capsule (500 mg total) by mouth in the morning and 1 capsule (500 mg total) before bedtime. Do all this for 7 days. 14 capsule 03/22/2024 03/29/2024 Active Start: 08-27-2023 End: 08-30-2023 take 1 capsule by mouth in the morning, then take 1 capsule by mouth at bedtime cefaDROXil (DURICEF) 500 mg capsule Take 1 capsule (500 mg total) by mouth in the morning and 1 capsule (500 mg total) before bedtime. Do all this for 3 days. 6 capsule 0 08/27/2023 08/30/2023 Active cefEPime 2,000 mg in sodium chloride 0.9 % 100 mL IVPB W/ADAPTER (1 source) Start: 11-20-2024 End: 12-17-2024 take 2000 mg intravenously every eight hours cefEPime 2,000 mg in sodium chloride 0.9 % 100 mL IVPB W/ADAPTER Infuse 2,000 mg into a venous catheter every 8 (eight) hours for 27 days. 11/20/2024 12/17/2024 Active Continuous Glucose Retort Furnace Operator (FreeStyle Cathy 3 [place]) device (19 sources) Continuous Glucose Retort Furnace Operator (FreeStyle Cathy 3 [place]) device Active Continuous Glucose Sensor (FreeStyle Cathy 3 Sensor) misc (19 sources) Continuous Glucose Sensor (FreeStyle Cathy 3 Sensor) misc 1 Device every 14 (fourteen) days Pt to check bs 4 x daily and use sliding scale insulin her scale. Active dapagliflozin 10 mg oral tablet (20 sources) Sodium-Glucose Cotransporter 2 Inhibitor Start: 11-21-2024 dapagliflozin propanediol (FARXIGA) 10 mg tablet Administer 1 tablet (10 mg total) per tube in the morning. 11/21/2024 Active Start: 05-25-2024 End: 10-07-2024 take 10 mg by mouth in the morning dapagliflozin (Farxiga) 10 MG Take 10 mg by mouth in the morning. 05/25/2024 Active DAPTOmycin 750 mg in sodium chloride 0.9 % 50 mL IVPB (1 source) Start: 11-21-2024 End: 12-17-2024 take 750 mg intravenously every twenty-four hours DAPTOmycin 750 mg in sodium chloride 0.9 % 50 mL IVPB Infuse 750 mg into a venous catheter daily for 26 days. 11/21/2024 12/17/2024 Active docusate sodium 50 mg / sennosides, correction 8.6 mg oral tablet (1 source) Start: 11-20-2024 sennosides-docusa te sodium (SENOKOT-S) 8.6-50 mg Administer 1 tablet per tube every 12 (twelve) hours as needed for constipation. 11/20/2024 Active Elastic Bandages & Supports (Tubular Stretch Bandage) misc (20 sources) Start: 12-03-2023 Elastic Bandages & Supports (Tubular Stretch Bandage) [facility] Indications: Edema, unspecified type Size E. Wash and dry legs daily, apply moisturizer. Apply to tubular bandage to bilateral lower legs daily, may remove at bedtime. 1 each 3 12/03/2023 Active 1 ml enoxaparin sodium 100 mg/ml prefilled syringe (1 source) Low Molecular Weight Heparin Start: 11-20-2024 enoxaparin (LOVENOX) 100 mg/mL syringe Inject 0.875 mL (87.5 mg total) under the skin Every 12 (twelve) hours. Until INR 2 11/20/2024 Active esomeprazole 20 mg granules for oral suspension (1 source) Proton Pump Inhibitor Start: 11-21-2024 take 20 mg by mouth once daily before breakfast esomeprazole (NexIUM) 20 mg packet Take 20 mg by mouth every morning before breakfast. Peg tube 11/21/2024 Active ferrous sulfate 325 mg oral tablet (20 sources) Start: 01-03-2024 End: 02-02-2024 take 1 tablet by mouth once daily at breakfast ferrous sulfate 325 (65 FE) mg tablet Take 1 tablet (325 mg total) by mouth daily with breakfast for 30 days. 30 tablet 01/03/2024 02/02/2024 Active take 2 tablets by mouth once ryan ly Ferrous Sulfate Dried ER 160 (50 Fe) MG tablet controlled-release Take 2 tablets by mouth Daily Active ferrous sulfate 325 (65 Fe) MG EC tablet Take 325 mg by mouth in the morning and 325 mg at noon and 325 mg in the evening. Take with meals. Do not crush, chew, or split.. Active take 1 tablet by mariah th in the morning ferrous sulfate (SLOW FE) 137 mg (45 mg iron) tablet extended release Take 90 mg by mouth in the morning. Suspended take 1 tablet by mariah th in the morning ferrous sulfate (SLOW FE) 137 mg (45 mg iron) tablet extended release Take 90 mg by mouth in the morning. Active take 1 tablet by mouth at bedtim e ferrous sulfate (SLOW FE) 137 mg (45 mg iron) tablet extended release Take 90 mg by mouth in the morning and at bedtime. Active Ferrous Sulfate Dried ER 160 (50 Fe) MG tablet controlled-release (4 sources) take 2 tablets by mouth once daily Ferrous Sulfate Dried ER 160 (50 Fe) MG tablet controlled-release Take 2 tablets by mouth Daily Active folic acid (FOLVITE) 1 mg/mL suspension (1 source) Start: 11-21-2024 folic acid (FOLVITE) 1 mg/mL suspension Administer 1 mL (1 mg total) per tube in the morning. 11/21/2024 Active guaiFENesin 20 mg/ml oral solution (20 sources) Start: 11-20-2024 take 200 mg enteral route every six hours guaiFENesin (ROBITUSSIN) 100 mg/5 mL syrup Administer 10 mL (200 mg total) per tube every 6 (six) hours. 11/20/2024 Active Start: 03-02-2024 take 1 tablet by mariah th in the morning, then take 1 tablet by mouth every twelve hours at bedtime guaiFENesin (Mucinex) 600 MG 12 hr tablet Indications: Acute cough Take 1 tablet (600 mg) by mouth in the morning and 1 tablet (600 mg) before bedtime. 60 tablet 03/02/2024 Active End: 02-26-2024 take 1 tablet by mouth once guaiFENesin (MUCINEX) 600 mg tablet extended release 12hr Take 1 tablet (600 mg total) by mouth every 12 (twelve) hours. Suspended End: 02-29-2024 take 1 tablet by mouth in the morning, then take 1 tablet by mouth every twelve hours in the evening guaiFENesin (Mucinex) 600 MG 12 hr tablet Take 600 mg by mouth in the morning and 600 mg in the evening. 02/29/2024 Discontinued (Reorder) hydroCHLOROthiazide 25 mg oral tablet (20 sources) Thiazide Diuretic Start: 07-22-2023 End: 11-19-2023 take 1 tablet by mouth once daily hydroCHLOROthiazide (HYDRODIURIL) 25 mg tablet Take 1 tablet (25 mg total) by mouth daily. 90 tablet 3 11/19/2023 Active 3 ml insulin aspart, human 100 unt/ml pen injector (20 sources) Insulin Analog Start: 02-11-2024 insulin aspart, with niacinamide, (Fiasp FlexTouch) 100 UNIT/ML injection Indications: Type 2 diabetes mellitus without complication, without long-term current use of insulin SSI TID before [id number] 2u, 201-250 4u, 251-300 6u, 301-350 8u, 351-400 10u. SSI [id number] 2u, 251-300 4u, 301-350 6u, 351-400 8u 10 mL 1 02/11/2024 Active Start: 02-11-2024 FIASP FLEXTOUC H U-100 INSULIN 100 unit/mL (3 mL) insulin pen 02/11/2024 Suspended Start: 02-11-2024 FIASP FLEXTOUC H U-100 INSULIN 100 unit/mL (3 mL) insulin pen SSI TID before [id number] 2u, 201-250 4u, 251-300 6u, 301-350 8u, 351-400 10u. SSI [id number] 2u, 251-300 4u, 301-350 6u, 351-400 8u 02/11/2024 Active 3 ml insulin lispro 100 unt/ml pen injector (20 sources) Insulin Analog Start: 11-20-2024 insulin lispro (HumaLOG) 100 unit/mL insulin pen Inject 2-10 Units under the skin every 6 (six) hours. 151-200 mg/dL, give 2 units. 201-250 mg/dL, give 4 units.251-300 mg/dL, give 6 units. 301-350 mg/dL, give 8 units.351-400 mg/dL, give 10 units 11/20/2024 Active Start: 01-02-2024 End: 06-24-2024 insulin lispro (HumaLOG) 100 unit/mL insulin pen Daytime hyperglycemia [id number] mg/dL, give 2 units. 201-250 mg/dL, give 4 units. 251-300 mg/dL, give 6 units. 301-350 mg/dL, give 8 units. 351-400 mg/dL, give 10 units. 15 mL 01/02/2024 06/24/2024 Discontinued (Duplicate Listing) lisinopril 2.5 mg oral tablet (20 sources) Angiotensin Converting Enzyme Inhibitor Start: 02-02-2024 End: 02-02-2024 take 1 tablet by mouth in the morning lisinopriL (PRINIVIL,ZESTRIL) 2.5 mg tablet Take 1 tablet (2.5 mg total) by mouth in the morning. 30 tablet 11 02/02/2024 02/02/2024 Discontinued Start: 07-22-2023 take 1 tablet by mariah th in the morning lisinopriL (PRINIVIL,ZESTRIL) 40 mg tablet Take 1 tablet (40 mg total) by mouth in the morning. 90 tablet 3 07/22/2023 Suspended losartan potassium 25 mg oral tablet (9 sources) Angiotensin 2 Receptor Jeferson take 1 tablet by mouth once daily losartan (Cozaar) 25 MG tablet Take 25 mg by mouth Daily Active magnesium oxide 400 mg oral tablet (20 sources) Start: 01-02-2024 End: 03-23-2024 take 1 tablet by mouth in the morning, then take 1 tablet by mouth at bedtime magnesium oxide (MAGOX) 400 mg tablet Take 1 tablet (400 mg total) by mouth in the morning and 1 tablet (400 mg total) before bedtime. Do all this for 30 days. 60 tablet 01/02/2024 02/01/2024 Active take 1 tablet by mariah th in the morning, then take 1 tablet by mouth at bedtime magnesium oxide 500 mg tablet Take 1 tablet (500 mg total) by mouth in the morning and 1 tablet (500 mg total) before bedtime. Active 24 hr metFORMIN hydrochloride 500 mg extended release oral tablet (20 sources) Biguanide Start: 08-04-2023 take 1 tablet by mouth once daily at dinner metFORMIN XR (Glucophage-XR) 500 MG 24 hr tablet Indications: Controlled type 2 diabetes mellitus without complication, without long-term current use of insulin (CMS/HCC) TAKE ONE TABLET BY MOUTH DAILY WITH EVENING MEAL for 90 90 tablet 1 08/04/2023 Active Start: 11-19-2022 End: 08-01-2023 take 1 tablet by mouth once daily at dinner metFORMIN XR (Glucophage-XR) 500 MG 24 hr tablet Indications: Controlled type 2 diabetes mellitus without complication, without long-term current use of insulin (CMS/HCC) TAKE ONE TABLET BY MOUTH DAILY WITH EVENING MEAL for 90 90 tablet 1 11/19/2022 08/01/2023 Discontinued (Reorder) take 500 mg by mouth once daily at breakfast metformin HCl (METFORMIN ORAL) Take 500 mg by mouth daily with breakfast. Suspended take 1 tablet by mariah th at mealtime, then take 1 tablet by mouth every twenty-four hours metFORMIN, OSM, (Fortamet) 500 MG 24 hr tablet Take 500 mg by mouth in the morning. Take with meals. 0 Active metoprolol tartrate 100 mg oral tablet (20 sources) beta-Adrenergic Jeferson Start: 11-20-2024 metopr olol tartrate (LOPRESSOR) 100 mg tablet Administer 1 tablet (100 mg total) per tube in the morning and 1 tablet (100 mg total) before bedtime. 11/20/2024 Active Start: 08-16-2024 take 1 tablet by mariah th every twenty-four hours in the morning metoprolol succinate XL (TOPROL XL) 50 mg 24 hr tablet Take 1 tablet (50 mg total) by mouth in the morning. 90 tablet 2 08/16/2024 Suspended Start: 02-02-2024 End: 08-03-2024 take 1 tablet by mouth every twenty-four hours in the morning metoprolol succinate XL (TOPROL XL) 50 mg 24 hr tablet Take 1 tablet (50 mg total) by mouth in the morning. 90 tablet 3 02/02/2024 08/03/2024 Discontinued (Reorder) Start: 01-02-2024 End: 02-02-2024 take 1 tablet by mouth in the morning, then take 1 tablet by mouth at bedtime metoprolol tartrate (LOPRESSOR) 25 mg tablet Take 1 tablet (25 mg total) by mouth in the morning and 1 tablet (25 mg total) before bedtime. Do all this for 30 days. 60 tablet 01/02/2024 02/02/2024 Discontinued take 1 tablet by mouth once paige y metoprolol succinate XL (Toprol-XL) 50 MG 24 hr tablet Take 50 mg by mouth Daily Do not crush or chew. Per cardio Active 24 hr mirabegron 25 mg extended release oral tablet (14 sources) beta3-Adrenergic Agonist Start: 11-12-2023 take 1 tablet by mouth every twenty-four hours in the morning mirabegron (MYRBETRIQ) 25 mg tablet extended release 24 hr Take 1 tablet (25 mg total) by mouth in the morning. 30 tablet 11/12/2023 Active adgpyyiq-jky-llade us gluconate (CENTRUM) 9 mg iron/15 mL liquid (1 source) Start: 11-21-2024 ndcuqkls-izs-vacm ous gluconate (CENTRUM) 9 mg iron/15 mL liquid Administer 15 mL per tube in the morning. 11/21/2024 Active nitroglycerin 0.4 mg sublingual tablet (20 sources) Nitrate Vasodilator Start: 03-17-2020 nitroglycerin (NITROSTAT) 0.[address] 1 tablet (0.4 mg total) under the tongue every 5 (five) minutes as needed for chest pain (for chest pain). 25 tablet 3 03/17/2020 Active nitroglycerin (N itrostat) 0.4 MG SL tablet Sublingual Active pantoprazole 40 mg delayed release oral tablet (20 sources) Proton Pump Inhibitor Start: 08-17-2024 take 1 tablet by mouth before mealtime pantoprazole (ProtoNix) 40 MG EC tablet Indications: Gastric ulcer, unspecified chronicity, unspecified whether gastric ulcer hemorrhage or perforation present Take 1 tablet (40 mg) by mouth in the morning. Take before meals. Do not crush, chew, or split.. 60 tablet 1 08/17/2024 Active Start: 05-24-2024 End: 06-29-2024 take 1 tablet by mouth before mealtime pantoprazole (ProtoNix) 40 MG EC tablet Indications: Gastric ulcer, unspecified chronicity, unspecified whether gastric ulcer hemorrhage or perforation present Take 1 tablet (40 mg) by mouth in the morning. Take before meals. Do not crush, chew, or split.. 60 tablet 1 06/29/2024 Active Start: 03-30-2024 End: 05-21-2024 take 1 tablet by mouth once daily in the morning pantoprazole (ProtoNix) 40 MG EC tablet Indications: Gastric ulcer, unspecified chronicity, unspecified whether gastric ulcer hemorrhage or perforation present TAKE 1 TABLET BY MOUTH EVERY MORNING AND TAKE 1 TABLET BY MOUTH AT BEDTIME DO NOT CRUSH OR CHEW OR SPLIT 60 tablet 1 04/28/2024 05/21/2024 Discontinued (Reorder) Start: 01-02-2024 End: 02-06-2024 take 1 tablet by mouth in the morning, then take 1 tablet by mouth before mealtime pantoprazole (PROTONIX) 40 mg EC tablet Take 1 tablet (40 mg total) by mouth in the morning and 1 tablet (40 mg total) in the evening. Take before meals. Do all this for 35 days. 70 tablet 01/02/2024 02/06/2024 Active PARoxetine hydrochloride 20 mg oral tablet (20 sources) Serotonin Reuptake Inhibitor Start: 11-21-2024 PARoxetine (PAXIL) 2 0 mg tablet Administer 1 tablet (20 mg total) per tube in the morning. 11/21/2024 Active Start: 05-15-2024 End: 02-13-2025 take 1 tablet by mouth in the morning PARoxetine (Paxil) 20 MG tablet Indications: Anxiety Take 1 tablet (20 mg) by mouth in the morning. 90 tablet 1 08/17/2024 02/13/2025 Active Start: 06-05-2023 End: 12-02-2023 take 1 tablet by mouth in the morning PARoxetine (Paxil) 20 MG tablet Indications: Anxiety Take 1 tablet (20 mg) by mouth in the morning. 90 tablet 1 06/05/2023 Active take 20 mg by mouth once daily P AROXETINE HCL ORAL 20 mg daily. Active saliva stimulant comb. no.3 (BIOTENE) spray,non-aerosol (1 source) Start: 11-20-2024 saliva stimulant comb. no.3 (BIOTENE) spray,non-aerosol Take 1 spray by mouth as needed (dry mouth). 11/20/2024 Active sucralfate 1000 mg oral tablet (20 sources) Aluminum Complex Start: 08-20-2024 take 1 tablet by mouth at bedtime sucralfate (Carafate) 1 g tablet Indications: Gastric ulcer, unspecified chronicity, unspecified whether gastric ulcer hemorrhage or perforation present Take 1 tablet (1 g) by mouth in the morning and 1 tablet (1 g) at noon and 1 tablet (1 g) in the evening and 1 tablet (1 g) before bedtime. Take before meals. 120 tablet 1 08/20/2024 Active Start: 01-02-2024 End: 08-16-2024 take 1 tablet by mouth at bedtime sucralfate (CARAFATE) 1 gram tablet Take 1 tablet (1 g total) by mouth in the morning and 1 tablet (1 g total) at noon and 1 tablet (1 g total) in the evening and 1 tablet (1 g total) before bedtime. 01/02/2024 Suspended thiamine 100 mg oral tablet (1 source) Start: 11-21-2024 thiamine HCl (VITAMIN B-1) 100 mg tablet Administer 1 tablet (100 mg total) per tube in the morning. 11/21/2024 Active valsartan 40 mg oral tablet (20 sources) Angiotensin 2 Receptor Jeferson Start: 06-24-2024 take 1 tablet by mouth in the morning valsartan (DIOVAN) 40 mg tablet Indications: 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) , HFrEF (heart failure with reduced ejection fraction) (CMS-HCC) , Coronary artery disease involving [place] coronary artery of [place] heart without angina pectoris , Paroxysmal atrial fibrillation (CMS-HCC) Take 1 tablet (40 mg total) by mouth in the morning. 30 tablet 11 06/24/2024 Active Start: 05-25-2024 End: 06-24-2024 take 0.5 tablet by mouth in the morning valsartan (DIOVAN) 40 mg tablet Indications: 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) , HFrEF (heart failure with reduced ejection fraction) (CMS-HCC) , Coronary artery disease involving [place] coronary artery of [place] heart without angina pectoris , Paroxysmal atrial fibrillation (CMS-HCC) Take 0.5 tablets (20 mg total) by mouth in the morning. 15 tablet 11 05/25/2024 06/24/2024 Discontinued (Reorder) Start: 04-05-2024 End: 05-25-2024 take 1 tablet by mouth in the morning valsartan (DIOVAN) 40 mg tablet Indications: 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) , HFrEF (heart failure with reduced ejection fraction) (CMS-HCC) , Coronary artery disease involving [place] coronary artery of [place] heart without angina pectoris , Paroxysmal atrial fibrillation (CMS-HCC) Take 1 tablet (40 mg total) by mouth in the morning. 30 tablet 11 06/24/2024 Suspended Start: 03-01-2024 End: 04-05-2024 take 0.5 tablet by mouth in the morning valsartan (DIOVAN) 40 mg tablet Indications: HFrEF (heart failure with reduced ejection fraction) (CMS-HCC) , 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) , Coronary artery disease involving [place] coronary artery of [place] heart without angina pectoris , Paroxysmal atrial fibrillation (CMS-HCC) Take 0.5 tablets (20 mg total) by mouth in the morning. 30 tablet 11 03/01/2024 04/05/2024 Discontinued (Reorder) Vibegron (Gemtesa) 75 MG tablet (17 sources) take 1 tablet by mouth in the morning Vibegron (Gemtesa) 75 MG tablet Take 75 mg by mouth in the morning. Active warfarin sodium 7.5 mg oral tablet (20 sources) Vitamin K Antagonist Start: 11-20-2024 take 1 tablet by mouth once daily warfarin (COUMADIN) 7.5 mg tablet 7.5mg PO daily, recheck INR 11/22/2024 11/20/2024 Active Start: 01-02-2024 take 1 tablet by mariah th once daily warfarin (COUMADIN) 5 mg tablet TAKE ONE AND ONE HALF TO TWO TABLETS BY MOUTH DAILY DIRECTED 180 tablet 3 01/02/2024 Suspended Start: 09-03-2022 End: 08-14-2023 take 1 tablet by mouth once daily warfarin (COUMADIN) 5 mg tablet TAKE ONE AND ONE HALF TO TWO TABLETS BY MOUTH DAILY DIRECTED 180 tablet 3 08/14/2023 Active Completed/Discontinued Medications Medication Drug Class(es) Dates Sig (Normalized) Sig (Original) amLODIPine 10 mg oral tablet (20 sources) Dihydropyridine Calcium Channel Jeferson Start: 07-22-2023 take 1 tablet by mouth in the morning amLODIPine (NORVASC) 10 mg tablet Take 1 tablet (10 mg total) by mouth in the morning. 90 tablet 3 07/22/2023 Suspended atorvastatin 80 mg oral tablet (20 sources) HMG-CoA Reductase Inhibitor Start: 07-22-2023 End: 10-26-2024 take 1 tablet by mouth in the morning atorvastatin (LIPITOR) 80 mg tablet Take 1 tablet (80 mg total) by mouth in the morning. Complete lipid panel for additional refills. 90 tablet 10/26/2024 Suspended cephalexin 500 mg oral capsule (8 sources) Cephalosporin Antibacterial End: 11-21-2023 take 1 capsule by mouth in the morning, then take 1 capsule by mouth at bedtime CEPHalexin (KEFLEX) 500 mg capsule Take 1 capsule (500 mg total) by mouth in the morning and 1 capsule (500 mg total) before bedtime. 11/21/2023 Discontinued (Therapy completed) furosemide 40 mg oral tablet (20 sources) Loop Diuretic Start: 03-01-2024 End: 05-06-2024 take 1 tablet by mouth once daily furosemide (LASIX) 40 mg tablet Indications: HFrEF (heart failure with reduced ejection fraction) ([facility]) , 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) , Coronary artery disease involving [place] coronary artery of [place] heart without angina pectoris , Paroxysmal atrial fibrillation (CMS-HCC) Take 1 tablet (40 mg total) by mouth daily. 30 tablet 11 04/19/2024 05/06/2024 Discontinued (Alternate therapy) Start: 01-03-2024 End: 02-02-2024 take 1 tablet by mouth once daily furosemide (LASIX) 40 mg tablet Take 1 tablet (40 mg total) by mouth daily for 30 days. 30 tablet 01/03/2024 02/02/2024 Active Start: 08-06-2022 End: 11-21-2023 take 1 tablet by mouth once daily furosemide (LASIX) 20 mg tablet Take 1 tablet (20 mg total) by mouth daily. 90 tablet 3 08/06/2022 11/21/2023 Discontinued (Therapy completed) lidocaine 25 mg/ml / prilocaine 25 mg/ml topical cream (1 source) Antiarrhythmic, Amide Local Anesthetic Start: 11-07-2023 End: 11-07-2023 1 Application, topical, Once, On Fri11/07/23 at 0930, For 1 dose, If no allergy, apply topically to wounds with each wound care appointment with practitioner for pain control. Start: 11-07-2023 End: 11-07-2023 1 Application, topical, Once , On Fri11/07/23 at 0930, For 1 dose, If no allergy, apply topically to wounds with each wound care appointment with practitioner for pain control. midodrine hydrochloride 2.5 mg oral tablet (20 sources) alpha-Adrenergic Agonist Start: 02-03-2024 End: 04-05-2024 take 1 tablet by mouth three times daily after mealtime as needed midodrine (PROAMATINE) 2.5 mg tablet Take 1 tablet (2.5 mg total) by mouth Three (3) times daily after meals as needed (For SBP 100 270 tablet 1 02/03/2024 04/05/2024 Discontinued (Patient Never Started This Medication) Start: 02-02-2024 take 2 tablets by mo uth three times daily after mealtime as needed midodrine (PROAMATINE) 2.5 mg tablet Take 2 tablets (5 mg total) by mouth Three (3) times daily after meals as needed (For SBP 100 02/02/2024 Active Start: 01-02-2024 End: 02-02-2024 take 0.5 tablet by mouth three times daily midodrine (PROAMATINE) 10 mg tablet Take 0.5 tablets (5 mg total) by mouth 3 (three) times a day. Hold for systolic > 100 01/02/2024 02/02/2024 Discontinued take 2 tablets by mo uth three times daily as needed midodrine (Proamatine) 2.5 MG tablet Take 5 mg by mouth 3 (three) times a day as needed (systolic less than 110) Per cardio Active NON FORMULARY (10 sources) End: 03-23-2024 take 90 mg by mouth in the morning NON FORMULARY Take 90 mg by mouth in the morning and 90 mg before bedtime. Med Name: iron. 03/23/2024 Discontinued (Duplicate Listing) take 90 mg by mouth in the morni ng NON FORMULARY Take 90 mg by mouth in the morning and 90 mg before bedtime. Med Name: iron. Active spironolactone 25 mg oral tablet (20 sources) Aldosterone Antagonist Start: 08-13-2024 take 1 tablet by mouth in the morning spironolactone (ALDACTONE) 25 mg tablet Indications: HFrEF (heart failure with reduced ejection fraction) ([facility]-HCC) Take 1 tablet (25 mg total) by mouth in the morning. 90 tablet 1 08/13/2024 Suspended Start: 07-21-2024 End: 08-13-2024 take 0.5 tablet by mouth in the morning spironolactone (ALDACTONE) 25 mg tablet Indications: HFrEF (heart failure with reduced ejection fraction) (CMS-HCC) Take 0.5 tablets (12.5 mg total) by mouth in the morning. 45 tablet 1 07/21/2024 08/13/2024 Discontinued (Reorder) Start: 03-23-2024 End: 07-26-2024 take 1 tablet by mouth in the morning spironolactone (Aldactone) 25 MG tablet Take 25 mg by mouth in the morning. 03/23/2024 07/26/2024 Discontinued spironolactone ( Aldactone) 25 MG tablet Take 12.5 mg by mouth Daily Per CHF clinic Active vibegron (GEMTESA) 75 mg tablet (17 sources) End: 05-25-2024 take 1 tablet by mouth in the morning vibegron (GEMTESA) 75 mg tablet Take 75 mg by mouth in the morning. 05/25/2024 Discontinued (Therapy completed) take 1 tablet by mouth in the mo rning vibegron (GEMTESA) 75 mg tablet Take 75 mg by mouth in the morning. Active Problems Active Problems Problem Classification Problem Date Documented Date Episodic/Chronic Acute cerebrovascular disease (20 sources) Cerebral infarction; Translations: [Cerebral infarction, unspecified] Onset: 10-07-2013 10-30-2023 Chronic Cancer of bladder (20 sources) Malignant tumor of urinary bladder; Translations: [Malignant neoplasm of bladder, unspecified] Onset: 09-11-2016 11-04-2022 Chronic Cardiac dysrhythmias (20 sources) Paroxysmal atrial fibrillation; Translations: [Paroxysmal atrial fibrillation] Onset: 01-06-2018 Resolved: 12-22-2018 12-03-2022 Chronic Cardiac dysrhythmias (2 sources) Tachycardia, unspecified; Translations: [Bradycardia, unspecified] Onset: 11-05-2024 Episodic Chronic kidney disease (20 sources) Chronic kidney disease; Translations: [Chronic kidney disease, unspecified] Onset: 06-23-2023 01-29-2024 Chronic Chronic obstructive pulmonary disease and bronchiectasis (2 sources) Bronchitis; Translations: [Bronchitis, not specified as acute or chronic] 11-02-2024 Episodic Chronic ulcer of skin (20 sources) Ulcer of lower extremity; Translations: [Non-pressure chronic ulcer of unspecified part of left lower leg with fat layer exposed] Onset: 06-23-2022 Resolved: 12-05-2022 12-05-2022 Chronic Coagulation and hemorrhagic disorders (20 sources) Thrombocytopenic disorder; Translations: [Thrombocytopenia, unspecified] Onset: 08-25-2024 08-25-2024 Chronic Congestive heart failure; nonhypertensive (20 sources) Acute on chronic diastolic heart failure; Translations: [Acute on chronic diastolic (congestive) heart failure] Onset: 06-23-2023 01-29-2024 Chronic Coronary atherosclerosis and other heart disease (20 sources) Coronary arteriosclerosis; Translations: [Atherosclerotic heart disease of [place] coronary artery without angina pectoris] Onset: 05-15-2010 11-04-2022 Chronic Coronary atherosclerosis and other heart disease (20 sources) History of cardiovascular surgery; Translations: [Presence of coronary angioplasty implant and graft] Onset: 11-13-2010 Resolved: 01-06-2018 12-03-2022 Episodic Deficiency and other anemia (4 sources) Anemia; Translations: [Anemia, unspecified] 04-13-2024 Episodic Diabetes mellitus with complications (20 sources) Disorder of nervous system due to diabetes mellitus; Translations: [Type 2 diabetes mellitus with other diabetic neurological complication] Onset: 07-20-2019 11-04-2022 Chronic Diabetes mellitus without complication (20 sources) Type 2 diabetes mellitus without complication; Translations: [Type 2 diabetes mellitus without complications] Onset: 11-04-2022 11-04-2022 Chronic Disorders of lipid metabolism (20 sources) Hyperlipidemia; Translations: [Hyperlipidemia, unspecified] Onset: 01-02-2006 Resolved: 12-05-2022 12-03-2022 Chronic E Codes: Fall (20 sources) Fall in home; Translations: [Unspecified fall, initial encounter] Onset: 08-25-2024 08-25-2024 Episodic E Codes: Fall (2 sources) Fall Onset: 08-24-2024 Essential hypertension (20 sources) Essential hypertension; Translations: [Essential (primary) hypertension] Onset: 01-02-2006 Resolved: 01-06-2018 12-26-2023 Chronic Gastroduodenal ulcer (except hemorrhage) (7 sources) Gastric ulcer; Translations: [Gastric ulcer, unspecified as acute or chronic, without hemorrhage or perforation] 04-28-2024 Chronic Genitourinary symptoms and ill-defined conditions (20 sources) Urinary incontinence; Translations: [Unspecified urinary incontinence] Onset: 03-16-2024 03-16-2024 Chronic Heart valve disorders (4 sources) Nonrheumatic mitral (valve) insufficiency; Translations: [Mitral valve disorders] Onset: 02-02-2024 07-29-2023 Chronic Hyperplasia of prostate (20 sources) Benign prostatic hypertrophy without outflow obstruction; Translations: [Benign prostatic hyperplasia without lower urinary tract symptoms] Onset: 05-03-2020 11-04-2022 Chronic Infective arthritis and osteomyelitis (except that caused by tuberculosis or sexually transmitted disease) (11 sources) Osteomyelitis of vertebra; Translations: [Osteomyelitis of vertebra, lumbar region] Onset: 11-06-2024 11-06-2024 Chronic Mycoses (3 sources) Onychomycosis due to dermatophyte ; Translations: [Tinea unguium] 07-28-2023 Episodic Open wounds of extremities (3 sources) Open wound of lower limb; Translations: [Laceration without foreign body, right lower leg, initial encounter] Onset: 11-08-2024 11-08-2024 Episodic Osteoarthritis (20 sources) Osteoarthritis; Translations: [Unspecified osteoarthritis, unspecified site] Onset: 06-23-2023 09-06-2024 Chronic Other and ill-defined cerebrovascular disease (20 sources) Cerebrovascular disease; Translations: [Cerebrovascular disease, unspecified] Onset: 09-03-2013 11-04-2022 Chronic Other and ill-defined cerebrovascular disease (1 source) Cerebrovascular disease, unspecified; Translations: [Cerebrovascular disease, unspecified] Onset: 12-26-2023 Chronic Other connective tissue disease (20 sources) Artificial knee joint present; Translations: [Presence of unspecified artificial knee joint] Onset: 11-06-2017 12-03-2022 Chronic Other diseases of bladder and urethra (1 source) Other specified disorders of bladder; Translations: [Other specified disorders of bladder] Onset: 11-05-2024 Chronic Other diseases of veins and lymphatics (20 sources) Lymphedema; Translations: [Lymphedema, not elsewhere classified] Onset: 11-12-2023 11-12-2023 Chronic Other fractures (3 sources) Closed fracture of multiple ribs; Translations: [Multiple fractures of ribs, right side, subsequent encounter for fracture with routine healing] 09-13-2024 Episodic Other fractures (1 source) Multiple fractures of ribs, right side, initial encounter for closed fracture; Translations: [Multiple fractures of ribs, right side, initial encounter for closed fracture] Onset: 08-24-2024 Episodic Other fractures (1 source) Multiple fractures of ribs, right side, subsequent encounter for fracture with routine healing; Translations: [Multiple fractures of ribs, right side, subsequent encounter for fracture with routine healing] Onset: 09-06-2024 Episodic Other fractures (1 source) Multiple fractures of ribs, unspecified side, initial encounter for closed fracture; Translations: [Multiple fractures of ribs, unspecified side, initial encounter for closed fracture] Onset: 09-06-2024 Episodic Other liver diseases (20 sources) Cirrhosis of liver; Translations: [Unspecified cirrhosis of liver] Onset: 06-23-2023 01-29-2024 Chronic Other lower respiratory disease (1 source) Cough; Translations: [Acute cough] 04-02-2024 Episodic Other non-traumatic joint disorders (4 sources) Pain in left knee; Translations: [Pain in joint, lower leg] 03-15-2024 Episodic Other nutritional; endocrine; and metabolic disorders (20 sources) Morbid obesity; Translations: [Morbid (severe) obesity due to excess calories] Onset: 11-04-2022 11-04-2022 Chronic Other nutritional; endocrine; and metabolic disorders (20 sources) Hypomagnesemia; Translations: [Hypomagnesemia] Onset: 12-27-2023 01-29-2024 Chronic Other nutritional; endocrine; and metabolic disorders (20 sources) Obesity caused by energy imbalance; Translations: [Morbid (severe) obesity due to excess calories] Onset: 02-09-2018 01-29-2024 Chronic Other nutritional; endocrine; and metabolic disorders (20 sources) Disorder of mineral metabolism; Translations: [Disorder of mineral metabolism, unspecified] Onset: 09-11-2016 10-08-2023 Chronic Other nutritional; endocrine; and metabolic disorders (20 sources) Severe obesity; Translations: [Morbid (severe) obesity due to excess calories] Onset: 02-09-2018 02-09-2018 Chronic Other nutritional; endocrine; and metabolic disorders (1 source) Hypocalcemia; Translations: [Hypocalcemia] Onset: 12-26-2023 Chronic Otitis media and related conditions (2 sources) Acute left otitis media; Translations: [Otitis media, unspecified, left ear] 11-02-2024 Episodic Pleurisy; pneumothorax; pulmonary collapse (4 sources) Bilateral pleural effusion; Translations: [Pleural effusion, not elsewhere classified] Onset: 08-24-2024 10-15-2024 Episodic Pneumonia (except that caused by tuberculosis or sexually transmitted disease) (20 sources) Pneumonia; Translations: [Pneumonia, unspecified organism] Onset: 11-28-2023 01-29-2024 Episodic Residual codes; unclassified (1 source) Other specified personal risk factors, not elsewhere classified; Translations: [Other specified personal risk factors, not elsewhere classified] Onset: 11-06-2024 Episodic Spondylosis; intervertebral disc disorders; other back problems (1 source) Discitis, unspecified, thoracic region; Translations: [Discitis, unspecified, thoracic region] Onset: 11-05-2024 Chronic Unclassified (20 sources) Patient on antidepressant monitoring plan Onset: 03-18-2023 03-18-2023 Unclassified (1 source) Bladder Problem Onset: 01-13-2024 Unclassified (1 source) New Patient Onset: 03-01-2024 Unclassified (1 source) Abnormal Lab Onset: 12-26-2023 Unclassified (1 source) L1 Osteomyelitis Onset: 11-06-2024 Unclassified (1 source) EMS// Onset: 08-24-2024 Past or Other Problems Problem Classification Problem Date Documented Da te Episodic/Chronic Acute and unspecified renal failure (20 sources) Acute renal failure syndrome; Translations: [Acute kidney failure, unspecified] Onset: 12-26-2023 01-29-2024 Episodic Acute posthemorrhagic anemia (20 sources) Acute posthemorrhagic anemia; Translations: [Acute posthemorrhagic anemia] Onset: 08-25-2024 08-25-2024 Episodic Bacterial infection; unspecified site (20 sources) Bacteremia caused by Gram-negative bacteria; Translations: [Bacteremia] Onset: 12-27-2023 01-29-2024 Episodic Calculus of urinary tract (20 sources) Kidney stone; Translations: [Calculus of kidney] Onset: 11-04-2022 11-04-2022 Episodic Cancer of bladder (20 sources) H/O: malignant neoplasm; Translations: [Personal history of malignant neoplasm of bladder] Onset: 06-23-2023 01-29-2024 Episodic Crushing injury or internal injury (20 sources) Traumatic hemothorax; Translations: [Traumatic hemothorax, initial encounter] Onset: 08-25-2024 08-25-2024 Episodic Deficiency and other anemia (20 sources) Iron deficiency anemia; Translations: [Iron deficiency anemia, unspecified] Onset: 09-23-2013 12-26-2023 Episodic Deficiency and other anemia (1 source) Iron deficiency anemia, unspecified; Translations: [Iron deficiency anemia, unspecified] Onset: 12-26-2023 Episodic Deficiency and other anemia (1 source) Anemia, unspecified; Translations: [Anemia, unspecified] Onset: 12-24-2023 Episodic Diabetes mellitus without complication (20 sources) Impaired fasting glycemia; Translations: [Impaired fasting glucose] Onset: 11-04-2022 Resolved: 12-05-2022 12-05-2022 Episodic Fluid and electrolyte disorders (20 sources) Hypokalemia; Translations: [Hypokalemia] Onset: 12-26-2023 01-29-2024 Episodic Gastritis and duodenitis (1 source) Acute gastritis without bleeding; Translations: [Acute gastritis without bleeding] Onset: 12-26-2023 Episodic Genitourinary symptoms and ill-defined conditions (1 source) Hematuria, unspecified; Translations: [Hematuria, unspecified] Onset: 12-26-2023 Episodic Malaise and fatigue (2 sources) Fatigue; Translations: [Weakness] Onset: 12-24-2023 Episodic Mood disorders (20 sources) Mood disorders Onset: 12-05-2022 Resolved: 11-10-2024 12-05-2022 Nonspecific chest pain (2 sources) Chest pain; Translations: [Chest pain, unspecified] Onset: 02-02-2024 02-02-2024 Episodic Other aftercare (20 sources) Long-term current use of anticoagulant; Translations: [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] Onset: 07-05-2021 12-03-2022 Episodic Other aftercare (20 sources) Long-term current use of aspirin; Translations: [detention (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 aspirin] Onset: 06-23-2023 01-29-2024 Episodic Other aftercare (1 source) 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; Translations: [detention (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] Onset: 12-26-2023 Episodic Other aftercare (1 source) transport pilot (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 insulin; Translations: [detention (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 insulin] Onset: 12-26-2023 Episodic Other aftercare (1 source) Encounter for therapeutic drug level monitoring; Translations: [Encounter for therapeutic drug level monitoring] Onset: 11-24-2023 Episodic Other and ill-defined heart disease (20 sources) Heart disease; Translations: [Heart disease, unspecified] Onset: 11-04-2022 Resolved: 12-05-2022 12-05-2022 Chronic Other circulatory disease (20 sources) Poor peripheral circulation; Translations: [Other specified symptoms and signs involving the circulatory and respiratory systems] Onset: 11-04-2022 11-04-2022 Episodic Other circulatory disease (20 sources) History of cerebrovascular accident without residual deficits; Translations: [Personal history of transient ischemic attack (TIA), and cerebral infarction without residual deficits] Onset: 02-17-2019 12-03-2022 Episodic Other circulatory disease (2 sources) History of cerebrovascular accident; Translations: [Personal history of transient ischemic attack (TIA), and cerebral infarction without residual deficits] 07-29-2023 Episodic Other circulatory disease (1 source) Personal history of transient ischemic attack (TIA), and cerebral infarction without residual deficits; Translations: [Personal history of transient ischemic attack (TIA), and cerebral infarction without residual deficits] Onset: 02-02-2024 Episodic Other diseases of bladder and urethra (20 sources) Unspecified bulbous urethral stricture, male; Translations: [Other specified causes of urethral stricture] Onset: 09-21-2021 12-03-2022 Episodic Other diseases of kidney and ureters (20 sources) Hydroureter; Translations: [Hydroureter] Onset: 12-26-2023 01-29-2024 Episodic Other diseases of kidney and ureters (20 sources) Hydronephrosis; Translations: [Unspecified hydronephrosis] Onset: 12-26-2023 01-29-2024 Episodic Other diseases of kidney and ureters (2 sources) Hydroureter; Translations: [Hydroureter] Onset: 12-26-2023 Episodic Other diseases of kidney and ureters (2 sources) Other obstructive and reflux uropathy; Translations: [Other obstructive and reflux uropathy] Onset: 06-09-2024 Episodic Other diseases of kidney and ureters (1 source) Disorder of kidney and ureter, unspecified; Translations: [Disorder of kidney and ureter, unspecified] Onset: 12-26-2023 Episodic Other diseases of veins and lymphatics (20 sources) Peripheral venous insufficiency; Translations: [Venous insufficiency (chronic) (peripheral)] Onset: 11-04-2022 11-04-2022 Episodic Other fractures (20 sources) Fracture of multiple ribs ; Translations: [Multiple fractures of ribs, unspecified side, initial encounter for closed fracture] Onset: 08-24-2024 08-24-2024 Episodic Other gastrointestinal disorders (20 sources) Occult blood in stools; Translations: [Other fecal abnormalities] Onset: 12-30-2023 01-29-2024 Episodic Other gastrointestinal disorders (2 sources) Other fecal abnormalities; Translations: [Other fecal abnormalities] Onset: 12-30-2023 Episodic Other injuries and conditions due to external causes (20 sources) History of fall; Translations: [History of falling] Onset: 06-23-2023 01-29-2024 Episodic Other lower respiratory disease (1 source) Cough; Translations: [Acute cough] 03-02-2024 Episodic Other nervous system disorders (20 sources) Acute pain due to injury; Translations: [Acute pain due to trauma] Onset: 08-26-2024 08-26-2024 Episodic Other nutritional; endocrine; and metabolic disorders (2 sources) H/O: raised blood lipids; Translations: [Personal history of other endocrine, nutritional and metabolic disease] 07-29-2023 Episodic Other nutritional; endocrine; and metabolic disorders (1 source) Personal history of other endocrine, nutritional and metabolic disease; Translations: [Personal history of other endocrine, nutritional and metabolic disease] Onset: 02-02-2024 Episodic Other screening for suspected conditions (not mental disorders or infectious disease) (20 sources) Raised prostate specific antigen; Translations: [Elevated prostate specific antigen [PSA]] Onset: 09-11-2016 11-04-2022 Episodic Other skin disorders (20 sources) Actinic keratosis; Translations: [Actinic keratosis] Onset: 11-04-2022 11-04-2022 Episodic Other skin disorders (20 sources) Foot callus; Translations: [Corns and callosities] Onset: 11-04-2022 11-04-2022 Episodic Residual codes; unclassified (20 sources) Peripheral edema; Translations: [Edema, unspecified] Onset: 11-04-2022 11-04-2022 Episodic Residual codes; unclassified (20 sources) Other specified conditions influencing health status; Translations: [Problems related to health literacy] Onset: 06-23-2023 01-29-2024 Episodic Residual codes; unclassified (1 source) Bilateral lower limb edema; Translations: [Localized edema] 11-07-2023 Episodic Screening and history of mental health and substance abuse codes (20 sources) Personal history of nicotine dependence; Translations: [Personal history of tobacco use] Onset: 06-23-2023 01-29-2024 Episodic Spondylosis; intervertebral disc disorders; other back problems (20 sources) Neck pain; Translations: [Cervicalgia] Onset: 11-07-2023 Resolved: 12-08-2023 12-08-2023 Episodic Urinary tract infections (20 sources) Escherichia coli urinary tract infection; Translations: [Urinary tract infection, site not specified] Onset: 02-05-2021 01-29-2024 Episodic Varicose veins of lower extremity (20 sources) Venous stasis ulcer with edema of left lower leg; Translations: [Varicose veins of left lower extremity with ulcer of unspecified site] Onset: 11-07-2023 11-21-2023 Episodic Results Test Name Value Interpretation Reference Range Facility BEDSIDE GLUCOSEon 11-20-2024 Glucose [Mass/Vol] 179 mg/dL High 65-99 [facility] Comment on above: Performed By: #### B EDG ####[facility] ([facility])[address] [place] [address] VIR Glucose [Mass/Vol] 192 mg/dL [facility] 65-99 [facility] Comment on above: Performed By: #### B EDG ####[facility] ([facility])[address] [place] [address] VIR CBC WITH AUTO DIFFERENTIALon 11-20-2024 BASOPHILS ABSOLUTE COUNT (10*3/UL) BY AUTOMATED COUNT 0.1 10*3/uL Normal 0.0-0.2 [facility] Comment on above: Performed By: #### C BCA ####[facility] ([facility])[address] [facility] [address] [address] VIR BASOPHILS RELATIVE PERCENT BY AUTOMATED COUNT 1.1 % Normal [facility] Comment on above: Performed By: #### C BCA ####[facility] ([facility])[address] [facility] [address], [place] [address] VIR CELLAVISION DIFFERENTIAL TYPE AUTOMATED DIFFERENTIAL Normal [facility] Comment on above: Performed By: #### C BCA ####[facility] ([facility])[address], [place] [address] VIR Eosinophils (Bld) [#/Vol] 0.1 10*3/uL Normal 0.0-0.4 [facility] Comment on above: Performed By: #### C BCA ####[facility] ([facility])[address], [place] [address] VIR EOSINOPHILS RELATIVE PERCENT BY AUTOMATED COUNT 1.6 % Normal [facility] Comment on above: Performed By: #### C BCA ####[facility] ([facility])[address], [place] [address] VIR Erythrocyte distribution width (RBC) [Ratio] 19.9 % High 11.5-15 [facility] Comment on above: Performed By: #### C BCA ####[facility] ([facility])[address], [place] [address] VIR Hematocrit (Bld) [Volume fraction] 33.3 % Low 39-50 [facility] Comment on above: Performed By: #### C BCA ####[facility] ([facility])[address], [place] [address] VIR Hemoglobin (Bld) [Mass/Vol] 11.1 g/dL Low 13-17 [facility] Comment on above: Performed By: #### C BCA ####[facility] ([facility])[address], [place] [address] VIR LYMPHOCYTES ABSOLUTE COUNT (10*3/UL) BY AUTOMATED COUNT 1.2 10*3/uL Normal 1.0-3.5 [facility] Comment on above: Performed By: #### C BCA ####[facility] ([facility])[address], [place] [address] VIR LYMPHOCYTES RELATIVE PERCENT BY AUTOMATED COUNT 15.2 % Normal [facility] Comment on above: Performed By: #### C BCA ####[facility] ([facility])[address], [place] [address] VIR MCH (RBC) [Entitic mass] 26.2 pg Low 27-34 [facility] Comment on above: Performed By: #### C BCA ####[facility] ([facility])[address], [place] [address] VIR MCHC (RBC) [Mass/Vol] 33.3 g/dL Normal 32-36 [facility] Comment on above: Performed By: #### C BCA ####[facility] ([facility])[address], [place] [address] VIR MCV (RBC) [Entitic vol] 79 fL Low 80-100 [facility] Comment on above: Performed By: #### C BCA ####[facility] ([facility])[address], [place] [address] VIR MONOCYTES ABSOLUTE COUNT (10*3/UL) BY AUTOMATED COUNT 0.8 10*3/uL Normal 0.0-0.9 [facility] Comment on above: Performed By: #### C BCA ####[facility] ([facility])[address], [place] [address] VIR MONOCYTES RELATIVE PERCENT BY AUTOMATED COUNT 9.3 % Normal [facility] Comment on above: Performed By: #### C BCA ####[facility] ([facility])[address], [place] [address] VIR NEUTROPHILS ABSOLUTE COUNT BY AUTOMATED COUNT 5.9 10*3/uL Normal 1.5-6.6 [facility] Comment on above: Performed By: #### C BCA ####[facility] ([facility])[address], [place] [address] VIR NEUTROPHILS RELATIVE PERCENT BY AUTOMATED COUNT 72.8 % Normal [facility] Comment on above: Performed By: #### C BCA ####[facility] ([facility])[address], [place] [address] VIR Platelet mean volume (Bld) [Entitic vol] 8.2 fL Normal 7-12 [facility] Comment on above: Performed By: #### C BCA ####[facility] ([facility])[address], [place] [address] VIR Platelets (Bld) [#/Vol] 96 10*3/uL Low 150-450 [facility] Comment on above: Performed By: #### C BCA ####[facility] ([facility])[address], [place] [address] VIR RBC COUNT 4.23 [id number]/L Normal 4.1-5.7 [facility] Comment on above: Performed By: #### C BCA ####[facility] ([facility])[address], [place] [address] VIR WBC (Bld) [#/Vol] 8.1 10*3/uL Normal 4-11 [facility] Comment on above: Performed By: #### C BCA ####[facility] ([facility])[address], [place] [address] VIR COMPREHENSIVE METABOLIC PANE [place] 11-20-2024 Albumin [Mass/Vol] 2.7 g/dL Low 3.2-5.3 [facility] Comment on above: Performed By: #### C MP ####[facility] ([facility])[address], [place] [address] VIR ALP [Catalytic activity/Vol] 104 U/L Normal 39-130 [facility] Comment on above: Performed By: #### C MP ####[facility] ([facility])[address], [place] [address] VIR ALT [Catalytic activity/Vol] 16 U/L Normal <=40 [facility] Comment on above: Performed By: #### C MP ####[facility] ([facility])[address], [place] [address] VIR Anion gap [Moles/Vol] 2 mmol/L Low 5-15 [facility] Comment on above: Performed By: #### C MP ####[facility] ([facility])[address], [place] [address] VIR AST [Catalytic activity/Vol] 17 U/L Normal <=41 [facility] Comment on above: Performed By: #### C MP ####[facility] ([facility])[address], [place] [address] VIR Bilirubin [Mass/Vol] 0.7 mg/dL Normal 0.3-1.2 [facility] Comment on above: Performed By: #### C MP ####[facility] ([facility])[address], [place] [address] VIR Calcium [Mass/Vol] 7.7 mg/dL Low 8.5-10.5 [facility] Comment on above: Performed By: #### C MP ####[facility] ([facility])[address], [place] [address] VIR Chloride [Moles/Vol] 116 mmol/L High 98-109 [facility] Comment on above: Performed By: #### C MP ####[facility] ([facility])[address], [place] [address] VIR CO2 [Moles/Vol] 22 mmol/L Normal 22-32 [facility] Comment on above: Performed By: #### C MP ####[facility] ([facility])[address], [place] [address] VIR Creatinine [Mass/Vol] 0.99 mg/dL Normal 0.60-1.30 [facility] Comment on above: Result Comment: METH OD TRACEABLE TO IDMS STANDARD Performed By: #### C MP ####[facility] ([facility])[address], [place] [address] VIR GFR/1.73 sq M.predicted among non-blacks MDRD (S/P/Bld) [Vol rate/Area] 77 mL/min/{1.73_m2} Normal >=60 [facility] Comment on above: Result Comment: Repo rted eGFR is based on theCKD-EPI 2020 equation that doesnot use a race coefficient. Performed By: #### C MP ####[facility] ([facility])[address], [place] [address] VIR Glucose [Mass/Vol] 194 mg/dL High 65-99 [facility] Comment on above: Performed By: #### C MP ####[facility] ([facility])[address], [place] [address] VIR Potassium [Moles/Vol] 3.6 mmol/L Normal 3.5-5.0 [facility] Comment on above: Performed By: #### C MP ####[facility] ([facility])[address], [place] [address] VIR Protein [Mass/Vol] 7.9 g/dL Normal 6.0-8.0 [facility] Comment on above: Performed By: #### C MP ####[facility] ([facility])[address], [place] [address] VIR Sodium [Moles/Vol] 140 mmol/L Normal 134-146 [facility] Comment on above: Performed By: #### C MP ####[facility] ([facility])[address], [place] [address] VIR Urea nitrogen [Mass/Vol] 27 mg/dL Normal 5-27 [facility] Comment on above: Performed By: #### C MP ####[facility] ([facility])[address], [place] [address] VIR IONIZED CALCIUMon 11-20-2024 IONIZED CALCIUM - ICAN 4.9 mg/dL Normal 4.5-5.3 [facility] Comment on above: Performed By: #### I CA ####[facility] ([facility])[address], [place] [address] VIR IONIZED MAGNESIUMon 11-21-19 25 Magnesium [Moles/Vol] 0.61 mmol/L Normal 0.45-0.74 [facility] Comment on above: Performed By: #### I MAG ####[facility] ([facility])[address], [place] [address] VIR MAGNESIUMon 11-20-2024 Magnesium [Mass/Vol] 2.0 mg/dL Normal 1.8-2.6 [facility] Comment on above: Performed By: #### M G ####[facility] ([facility])[address], [place] [address] VIR PHOSPHORUSon 11-20-2024 Phosphate [Mass/Vol] 3.1 mg/dL Normal 2.4-4.9 [facility] Comment on above: Performed By: #### P HOS ####[facility] ([facility])[address], [place] [address] VIR PROTIME AND INRon 11-20-2024 INR 1.6 High 0.9-1.2 [facility] Comment on above: Performed By: #### P INR ####[facility] ([facility])[address], [place] [address] VIR PT Coag (PPP) [Time] 18.4 s High 9.8-13.2 [facility] Comment on above: Performed By: #### P INR ####[facility] ([facility])[address], [place] [address] VIR BEDSIDE GLUCOSEon 11-19-2024 Glucose [Mass/Vol] 197 mg/dL High 65-99 [facility] Comment on above: Performed By: #### B EDG ####[facility] ([facility])[address] [place] [address] VIR Glucose [Mass/Vol] 184 mg/dL High 65-99 [facility] Comment on above: Performed By: #### B EDG ####[facility] ([facility])[address] [place] [address] VIR Glucose [Mass/Vol] 219 mg/dL High 65-99 [facility] Comment on above: Performed By: #### B EDG ####[facility] ([facility])[address] [facility] [place] [address] VIR Glucose [Mass/Vol] 214 mg/dL High 65-99 [facility] Comment on above: Performed By: #### B EDG ####[facility] ([facility])[address] [place] [address] VIR Glucose [Mass/Vol] 179 mg/dL High 65-99 [facility] Comment on above: Performed By: #### B EDG ####[facility] ([facility])[address] [facility] [place] [address] VIR CBC WITH AUTO DIFFERENTIALon 11-19-2024 CELLAVISION BASOPHILS ABSOLUTE COUNT (10*3/UL) BY MANUAL COUNT 0.1 10*3/uL Normal 0.0-0.2 [facility] Comment on above: Result Comment: This is an appended report. These results have been appended to a previously preliminary verified report. Performed By: #### C BCA ####[facility] ([facility])[address], [place] [address] VIR CELLAVISION BASOPHILS RELATIVE PERCENT BY MANUAL COUNT 1 % Normal [facility] Comment on above: Result Comment: This is an appended report. These results have been appended to a previously preliminary verified report. Performed By: #### C BCA ####[facility] ([facility])[address], [place] [address] VIR CELLAVISION DIFFERENTIAL TYPE CELLAVISION DIFFERENTIAL Normal [facility] Comment on above: Result Comment: This is an appended report. These results have been appended to a previously preliminary verified report. Performed By: #### C BCA ####[facility] ([facility])[address], [place] [address] VIR CELLAVISION ELLIPTOCYTES IN BLOOD BY LIGHT MICROSCOPY 1+ Normal [facility] Comment on above: Result Comment: This is an appended report. These results have been appended to a previously preliminary verified report. Performed By: #### C BCA ####[facility] ([facility])[address], [place] [address] VIR CELLAVISION EOSINOPHILS ABSOLUTE COUNT (10*3/UL) BY MANUAL COUNT 0.1 10*3/uL Normal 0.0-0.4 [facility] Comment on above: Result Comment: This is an appended report. These results have been appended to a previously preliminary verified report. Performed By: #### C BCA ####[facility] ([facility])[address], [place] [address] VIR CELLAVISION EOSINOPHILS PERCENT BY MANUAL COUNT 1 % Normal [facility] Comment on above: Result Comment: This is an appended report. These results have been appended to a previously preliminary verified report. Performed By: #### C BCA ####[facility] ([facility])[address], [place] [address] VIR CELLAVISION LYMPHOCYTES ABSOLUTE COUNT (10*3/UL) BY MANUAL COUNT 1.5 10*3/uL Normal 1.0-3.5 [facility] Comment on above: Result Comment: This is an appended report. These results have been appended to a previously preliminary verified report. Performed By: #### C BCA ####[facility] ([facility])[address], [place] [address] VIR CELLAVISION LYMPHOCYTES RELATIVE PERCENT BY MANUAL COUNT 16 % Normal [facility] Comment on above: Result Comment: This is an appended report. These results have been appended to a previously preliminary verified report. Performed By: #### C BCA ####[facility] ([facility])[address], [place] [address] VIR CELLAVISION METAMYELOCYTES RELATIVE PERCENT BY MANUAL COUNT 1 % Normal [facility] Comment on above: Result Comment: This is an appended report. These results have been appended to a previously preliminary verified report. Performed By: #### C BCA ####[facility] ([facility])[address], [place] [address] VIR CELLAVISION MONOCYTES ABSOLUTE COUNT (10*3/UL) IN BLOOD BY MANUAL COUNT 0.4 10*3/uL Normal 0.0-0.9 [facility] Comment on above: Result Comment: This is an appended report. These results have been appended to a previously preliminary verified report. Performed By: #### C BCA ####[facility] ([facility])[address], [place] [address] VIR CELLAVISION MONOCYTES RELATIVE PERCENT BY MANUAL COUNT 4 % Normal [facility] Comment on above: Result Comment: This is an appended report. These results have been appended to a previously preliminary verified report. Performed By: #### C BCA ####[facility] ([facility])[address], [place] [address] VIR CELLAVISION MYELOCYTE RELATIVE PERCENT BY MANUAL COUNT 1 % Normal [facility] [facility] Comment on above: Result Comment: This is an appended report. These results have been appended to a previously preliminary verified report. Performed By: #### C BCA ####[facility] ([facility], [place] [address] VIR CELLAVISION NEUTROPHILS ABSOLUTE COUNT BY MANUAL COUNT 7.1 10*3/uL High 1.5-6.6 [facility] Comment on above: Result Comment: This is an appended report. These results have been appended to a previously preliminary verified report. Performed By: #### C BCA ####[facility] ([facility])[address], [place] [address] VIR CELLAVISION NEUTROPHILS RELATIVE PERCENT BY MANUAL COUNT 76 % Normal [facility] Comment on above: Result Comment: This is an appended report. These results have been appended to a previously preliminary verified report. Performed By: #### C BCA ####[facility] ([facility])[address], [place] [address] VIR CELLAVISION POLYCHROMASIA IN BLOOD BY LIGHT MICROSCOPY 1+ Normal [facility] Comment on above: Result Comment: This is an appended report. These results have been appended to a previously preliminary verified report. Performed By: #### C BCA ####[facility])[address], [place] [address] VIR Erythrocyte distribution width (RBC) [Ratio] 19.1 % High 11.5-15 [facility] Comment on above: Performed By: #### C BCA ####[facility])[address], [place] [address] VIR Hematocrit (Bld) [Volume fraction] 34.3 % Low 39-50 [facility] Comment on above: Performed By: #### C BCA ####[facility])[address], [place] [address] VIR Hemoglobin (Bld) [Mass/Vol] 11.4 g/dL Low 13-17 [facility] Comment on above: Performed By: #### C BCA ####[facility])[address], [place] [address] VIR MCH (RBC) [Entitic mass] 26.5 pg Low 27-34 [facility] Comment on above: Performed By: #### C BCA ####[facility])[address], [place] [address] VIR MCHC (RBC) [Mass/Vol] 33.3 g/dL Normal 32-36 [facility] Comment on above: Performed By: #### C BCA ####[facility])[address], [place] [address] VIR MCV (RBC) [Entitic vol] 80 fL Normal 80-100 [facility] Comment on above: Performed By: #### C BCA ####[facility])[address], [place] [address] VIR Platelet mean volume (Bld) [Entitic vol] 7.8 fL Normal 7-12 [facility] Comment on above: Performed By: #### C BCA ####[facility])[address], [place] [address] VIR Platelets (Bld) [#/Vol] 92 10*3/uL Low 150-450 [facility] Comment on above: Performed By: #### C BCA ####[facility])[address], [place] [address] VIR RBC COUNT 4.31 X10E12/L Normal 4.1-5.7 [facility] Comment on above: Performed By: #### C BCA ####[facility])[address], [place] [address] VIR WBC (Bld) [#/Vol] 9.3 10*3/uL Normal 4-11 [facility] Comment on above: Performed By: #### C BCA ####[facility])[address], [place] [address] VIR COMPREHENSIVE METABOLIC PANE [place] 11-19-2024 Albumin [Mass/Vol] 2.9 g/dL Low 3.2-5.3 [facility] Comment on above: Performed By: #### C MP ####[facility])[address], [place] [address] VIR ALP [Catalytic activity/Vol] 105 U/L Normal 39-130 [facility] Comment on above: Performed By: #### C MP ####[facility])[address], [place] [address] VIR ALT [Catalytic activity/Vol] 19 U/L Normal <=40 [facility] Comment on above: Performed By: #### C MP ####[facility])[address], [place] [address] VIR Anion gap [Moles/Vol] 7 mmol/L Normal 5-15 [facility] Comment on above: Performed By: #### C MP ####[facility])[address], [place] [address] VIR AST [Catalytic activity/Vol] 18 U/L Normal <=41 [facility] Comment on above: Performed By: #### C MP ####[facility])[address], [place] [address] VIR Bilirubin [Mass/Vol] 0.7 mg/dL Normal 0.3-1.2 [facility] Comment on above: Performed By: #### C MP ####[facility])[address], [place] [address] VIR Calcium [Mass/Vol] 8.4 mg/dL Low 8.5-10.5 [facility] Comment on above: Performed By: #### C MP ####[facility])[address], [place] [address] VIR Chloride [Moles/Vol] 108 mmol/L Normal 98-109 [facility] Comment on above: Performed By: #### C MP ####[facility])[address], [place] [address] VIR CO2 [Moles/Vol] 28 mmol/L Normal 22-32 [facility] Comment on above: Performed By: #### C MP ####[facility])[address], [place] [address] VIR Creatinine [Mass/Vol] 0.91 mg/dL Normal 0.60-1.30 [facility] Comment on above: Result Comment: METH OD TRACEABLE TO IDMS STANDARD Performed By: #### C MP ####[facility])[address], [place] [address] VIR GFR/1.73 sq M.predicted among non-blacks MDRD (S/P/Bld) [Vol rate/Area] 86 mL/min/{1.73_m2} Normal >=60 [facility] Comment on above: Result Comment: Repo rted eGFR is based on theCKD-EPI 2020 equation that doesnot use a race coefficient. Performed By: #### C MP ####[facility])[address], [place] [address] VIR Glucose [Mass/Vol] 206 mg/dL High 65-99 [facility] Comment on above: Performed By: #### C MP ####[facility])[address], [place] [address] VIR Potassium [Moles/Vol] 3.5 mmol/L Normal 3.5-5.0 [facility] Comment on above: Performed By: #### C MP ####[facility])[address], [place] [address] VIR Protein [Mass/Vol] 6.8 g/dL Normal 6.0-8.0 [facility] Comment on above: Performed By: #### C MP ####[facility])[address], [place] [address] VIR Sodium [Moles/Vol] 143 mmol/L Normal 134-146 [facility] Comment on above: Performed By: #### C MP ####[facility])[address], [place] [address] VIR Urea nitrogen [Mass/Vol] 27 mg/dL Normal 5-27 [facility] Comment on above: Performed By: #### C MP ####[facility])[address], [place] [address] VIR IONIZED MAGNESIUMon 05-30-20 25 Magnesium [Moles/Vol] 0.49 mmol/L Normal 0.45-0.74 [facility] Comment on above: Performed By: #### I MAG ####[facility])[address], [place] [address] VIR MAGNESIUMon 11-19-2024 Magnesium [Mass/Vol] 2.4 mg/dL Normal 1.8-2.6 [facility] Comment on above: Performed By: #### M G ####[facility])[address], [place] [address] VIR Magnesium [Mass/Vol] 1.9 mg/dL Normal 1.8-2.6 [facility] Comment on above: Performed By: #### M G ####[facility])[address] [address] VIR PHOSPHORUSon 11-19-2024 Phosphate [Mass/Vol] 3.1 mg/dL Normal 2.4-4.9 [facility] Comment on above: Performed By: #### P HOS ####[facility])[address] [place] [address] VIR POTASSIUMon 11-19-2024 Potassium [Moles/Vol] 3.9 mmol/L Normal 3.5-5.0 [facility] Comment on above: Performed By: #### K ####[facility])[address], [place] [address] VIR PROTIME AND INRon 11-19-2024 INR 1.6 High 0.9-1.2 [facility] Comment on above: Performed By: #### P INR ####[facility])[address], [place] [address] VIR PT Coag (PPP) [Time] 17.9 s High 9.8-13.2 [facility] Comment on above: Performed By: #### P INR ####[facility])[address], [place] [address] VIR B-TYPE NATRIURETIC PEPTIDEon 11-18-2024 Natriuretic peptide B (Bld) [Mass/Vol] 423 pg/mL High <=100 [facility] Comment on above: Performed By: #### B DIRECTOR OF MUSIC ####[facility])[address], [place] [address] VIR BASIC METABOLIC PANELon 05-2 Anion gap [Moles/Vol] 10 mmol/L Normal 5-15 [facility] Comment on above: Performed By: #### B MP ####[facility])[address], [place] [address] VIR Calcium [Mass/Vol] 8.7 mg/dL Normal 8.5-10.5 [facility] Comment on above: Performed By: #### B MP ####[facility])[address], [place] [address] VIR Chloride [Moles/Vol] 110 mmol/L High 98-109 [facility] Comment on above: Performed By: #### B MP ####[facility])[address], [place] [address] VIR CO2 [Moles/Vol] 27 mmol/L Normal 22-32 [facility] Comment on above: Performed By: #### B MP ####[facility])[address], [place] [address] VIR Creatinine [Mass/Vol] 1.08 mg/dL Normal 0.60-1.30 [facility] Comment on above: Result Comment: METH OD TRACEABLE TO IDMS STANDARD Performed By: #### B MP ####[facility])[address], [place] [address] VIR GFR/1.73 sq M.predicted among non-blacks MDRD (S/P/Bld) [Vol rate/Area] 70 mL/min/{1.73_m2} Normal >=60 [facility] Comment on above: Result Comment: Repo rted eGFR is based on theCKD-EPI 2020 equation that doesnot use a race coefficient. Performed By: #### B MP ####[facility])[address], [place] [address] VIR Glucose [Mass/Vol] 220 mg/dL High 65-99 [facility] Comment on above: Performed By: #### B MP ####[facility])[address], [place] [address] VIR Potassium [Moles/Vol] 3.1 mmol/L Low 3.5-5.0 [facility] Comment on above: Performed By: #### B MP ####[facility])[address], [place] [address] VIR Sodium [Moles/Vol] 147 mmol/L High 134-146 [facility] Comment on above: Performed By: #### B MP ####[facility])[address], [place] [address] VIR Urea nitrogen [Mass/Vol] 27 mg/dL Normal 5-27 [facility] Comment on above: Performed By: #### B MP ####[facility])[address], [place] [address] VIR BEDSIDE GLUCOSEon 11-18-2024 Glucose [Mass/Vol] 140 mg/dL High 65-99 [facility] Comment on above: Performed By: #### B EDG ####[facility] ([facility])[address] [place] [address] VIR Glucose [Mass/Vol] 190 mg/dL High 65-99 [facility] Comment on above: Performed By: #### B EDG ####[facility] ([facility])[address] [place] [address] VIR Glucose [Mass/Vol] 218 mg/dL High 65-99 [facility] Comment on above: Performed By: #### B EDG ####[facility] ([facility])[address] [place] [address] VIR Glucose [Mass/Vol] 136 mg/dL High 65-99 [facility] Comment on above: Performed By: #### B EDG ####[facility] ([facility])[address] [place] [address] VIR CBC WITH AUTO DIFFERENTIALon 11-18-2024 Band form neutrophils/100 WBC (Bld) 1 % Normal [facility] Comment on above: Result Comment: This is an appended report. These results have been appended to a previously preliminary verified report. Performed By: #### C BCA ####[facility])[address], [place] [address] VIR CELLAVISION DIFFERENTIAL TYPE MANUAL DIFFERENTIAL Normal [facility] Comment on above: Result Comment: This is an appended report. These results have been appended to a previously preliminary verified report. Performed By: #### C BCA ####[facility])[address], [place] [address] VIR CELLAVISION ELLIPTOCYTES IN BLOOD BY LIGHT MICROSCOPY 1+ Normal [facility] Comment on above: Result Comment: This is an appended report. These results have been appended to a previously preliminary verified report. Performed By: #### C BCA ####[facility])[address], [place] [address] VIR CELLAVISION EOSINOPHILS ABSOLUTE COUNT (10*3/UL) BY MANUAL COUNT 0.2 10*3/uL Normal 0.0-0.4 [facility] Comment on above: Result Comment: This is an appended report. These results have been appended to a previously preliminary verified report. Performed By: #### C BCA ####[facility])[address], [place] [address] VIR CELLAVISION EOSINOPHILS PERCENT BY MANUAL COUNT 2 % Normal [facility] Comment on above: Result Comment: This is an appended report. These results have been appended to a previously preliminary verified report. Performed By: #### C BCA ####[facility])[address], [place] [address] VIR CELLAVISION LYMPHOCYTES ABSOLUTE COUNT (10*3/UL) BY MANUAL COUNT 1.5 10*3/uL Normal 1.0-3.5 [facility] Comment on above: Result Comment: This is an appended report. These results have been appended to a previously preliminary verified report. Performed By: #### C BCA ####[facility])[address], [place] [address] VIR CELLAVISION LYMPHOCYTES RELATIVE PERCENT BY MANUAL COUNT 15 % Normal [facility] Comment on above: Result Comment: This is an appended report. These results have been appended to a previously preliminary verified report. Performed By: #### C BCA ####[facility])[address], [place] [address] VIR CELLAVISION METAMYELOCYTES RELATIVE PERCENT BY MANUAL COUNT 2 % Normal [facility] Comment on above: Result Comment: This is an appended report. These results have been appended to a previously preliminary verified report. Performed By: #### C BCA ####[facility])[address], [place] [address] VIR CELLAVISION MONOCYTES ABSOLUTE COUNT (10*3/UL) IN BLOOD BY MANUAL COUNT 0.6 10*3/uL Normal 0.0-0.9 [facility] Comment on above: Result Comment: This is an appended report. These results have been appended to a previously preliminary verified report. Performed By: #### C BCA ####[facility])[address], [place] [address] VIR CELLAVISION MONOCYTES RELATIVE PERCENT BY MANUAL COUNT 6 % Normal [facility] Comment on above: Result Comment: This is an appended report. These results have been appended to a previously preliminary verified report. Performed By: #### C BCA ####[facility])[address], [place] [address] VIR CELLAVISION MYELOCYTE RELATIVE PERCENT BY MANUAL COUNT 3 % Normal [facility] Comment on above: Result Comment: This is an appended report. These results have been appended to a previously preliminary verified report. Performed By: #### C BCA ####[facility])[address], [place] [address] VIR CELLAVISION NEUTROPHILS ABSOLUTE COUNT BY MANUAL COUNT 7.2 10*3/uL High 1.5-6.6 [facility] Comment on above: Result Comment: This is an appended report. These results have been appended to a previously preliminary verified report. Performed By: #### C BCA ####[facility])[address], [place] [address] VIR CELLAVISION NEUTROPHILS RELATIVE PERCENT BY MANUAL COUNT 71 % Normal [facility] Comment on above: Result Comment: This is an appended report. These results have been appended to a previously preliminary verified report. Performed By: #### C BCA ####[facility])[address], [place] [address] VIR CELLAVISION POLYCHROMASIA IN BLOOD BY LIGHT MICROSCOPY 1+ Normal [facility] Comment on above: Result Comment: This is an appended report. These results have been appended to a previously preliminary verified report. Performed By: #### C BCA ####[facility] ([facility])[address], [place] [address] VIR Erythrocyte distribution width (RBC) [Ratio] 19.4 % High 11.5-15 [facility] Comment on above: Performed By: #### C BCA ####[facility] ([facility])[address], [place] [address] VIR Hematocrit (Bld) [Volume fraction] 36.3 % Low 39-50 [facility] Comment on above: Performed By: #### C BCA ####[facility])[address], [place] [address] VIR Hemoglobin (Bld) [Mass/Vol] 12.0 g/dL Low 13-17 [facility] Comment on above: Performed By: #### C BCA ####[facility])[address], [place] [address] VIR MCH (RBC) [Entitic mass] 26.1 pg Low 27-34 [facility] Comment on above: Performed By: #### C BCA ####[facility])[address], [place] [address] VIR MCHC (RBC) [Mass/Vol] 32.9 g/dL Normal 32-36 [facility] Comment on above: Performed By: #### C BCA ####[facility])[address], [place] [address] VIR MCV (RBC) [Entitic vol] 79 fL Low 80-100 [facility] Comment on above: Performed By: #### C BCA ####[facility])[address], [place] [address] VIR Platelet mean volume (Bld) [Entitic vol] 7.8 fL Normal 7-12 [facility] Comment on above: Performed By: #### C BCA ####[facility])[address], [place] [address] VIR Platelets (Bld) [#/Vol] 100 10*3/uL Low 150-450 [facility] Comment on above: Performed By: #### C BCA ####[facility])[address], [place] [address] VIR RBC COUNT 4.59 X10E12/L Normal 4.1-5.7 [facility] Comment on above: Performed By: #### C BCA ####[facility])[address], [place] [address] VIR WBC (Bld) [#/Vol] 10.0 10*3/uL Normal 4-11 [facility] Comment on above: Performed By: #### C BCA ####[facility])[address], [place] [address] VIR COMPREHENSIVE METABOLIC PANE [place] 11-18-2024 Albumin [Mass/Vol] 3.0 g/dL Low 3.2-5.3 [facility] Comment on above: Performed By: #### C MP ####[facility])[address], [place] [address] VIR ALP [Catalytic activity/Vol] 112 U/L Normal 39-130 [facility] Comment on above: Performed By: #### C MP ####[facility])[address], [place] [address] VIR ALT [Catalytic activity/Vol] 24 U/L Normal <=40 [facility] Comment on above: Performed By: #### C MP ####[facility])[address], [place] [address] VIR Anion gap [Moles/Vol] 9 mmol/L Normal 5-15 [facility] Comment on above: Performed By: #### C MP ####[facility])[address], [place] [address] VIR AST [Catalytic activity/Vol] 18 U/L Normal <=41 [facility] Comment on above: Performed By: #### C MP ####[facility])[address], [place] [address] VIR Bilirubin [Mass/Vol] 0.7 mg/dL Normal 0.3-1.2 [facility] Comment on above: Performed By: #### C MP ####[facility])[address], [place] [address] VIR Calcium [Mass/Vol] 8.8 mg/dL Normal 8.5-10.5 [facility] Comment on above: Performed By: #### C MP ####[facility])[address], [place] [address] VIR Chloride [Moles/Vol] 112 mmol/L High 98-109 [facility] Comment on above: Performed By: #### C MP ####[facility])[address], [place] [address] VIR CO2 [Moles/Vol] 27 mmol/L Normal 22-32 [facility] Comment on above: Performed By: #### C MP ####[facility])[address], [place] [address] VIR Creatinine [Mass/Vol] 1.06 mg/dL Normal 0.60-1.30 [facility] Comment on above: Result Comment: METH OD TRACEABLE TO IDMS STANDARD Performed By: #### C MP ####[facility])[address], [place] [address] VIR GFR/1.73 sq M.predicted among non-blacks MDRD (S/P/Bld) [Vol rate/Area] 71 mL/min/{1.73_m2} Normal >=60 [facility] Comment on above: Result Comment: Repo rted eGFR is based on theCKD-EPI 2020 equation that doesnot use a race coefficient. Performed By: #### C MP ####[facility])[address], [place] [address] VIR Glucose [Mass/Vol] 195 mg/dL High 65-99 [facility] Comment on above: Performed By: #### C MP ####[facility])[address], [place] [address] VIR Potassium [Moles/Vol] 3.7 mmol/L Normal 3.5-5.0 [facility] Comment on above: Performed By: #### C MP ####[facility] [facility], [place] [address] VIR Protein [Mass/Vol] 7.1 g/dL Normal 6.0-8.0 [facility] Comment on above: Performed By: #### C MP ####[facility], [place] [address] VIR Sodium [Moles/Vol] 148 mmol/L High 134-146 [facility] Comment on above: Performed By: #### C MP ####[facility], [place] [address] VIR Urea nitrogen [Mass/Vol] 27 mg/dL Normal 5-27 [facility] Comment on above: Performed By: #### C MP ####[facility], [place] [address] VIR IONIZED MAGNESIUMon 11-19-19 Magnesium [Moles/Vol] 0.44 mmol/L Low 0.45-0.74 [facility] Comment on above: Performed By: #### I MAG ####[facility], [place] [address] VIR MAGNESIUMon 11-18-2024 Magnesium [Mass/Vol] 2.3 mg/dL Normal 1.8-2.6 [facility] Comment on above: Performed By: #### M G ####[facility])[address], [place] [address] VIR Magnesium [Mass/Vol] 1.7 mg/dL Low 1.8-2.6 [facility] Comment on above: Performed By: #### M G ####[facility], [place] [address] VIR PHOSPHORUSon 11-18-2024 Phosphate [Mass/Vol] 3.0 mg/dL Normal 2.4-4.9 [facility] Comment on above: Performed By: #### P HOS ####[facility], [place] [address] VIR POTASSIUMon 11-18-2024 Potassium [Moles/Vol] 3.9 mmol/L Normal 3.5-5.0 [facility] Comment on above: Performed By: #### K ####[facility], [place] [address] VIR PROTIME AND INRon 11-18-2024 INR 1.5 High 0.9-1.2 [facility] Comment on above: Performed By: #### P INR ####[facility], [place] [address] VIR PT Coag (PPP) [Time] 16.5 s High 9.8-13.2 [facility] Comment on above: Performed By: #### P INR ####[facility], [place] [address] VIR XR CHEST 1 VWon 11-18-2024 XR CHEST 1 VW Normal [facility] XR CHEST 1 VW Normal [facility] BEDSIDE GLUCOSEon 11-17-2024 Glucose [Mass/Vol] 163 mg/dL High 65-99 [facility] Comment on above: Performed By: #### B EDG ####[facility] ([facility])[address] [place] [address] VIR Glucose [Mass/Vol] 205 mg/dL High 65-99 [facility] Comment on above: Performed By: #### B EDG ####[facility] ([facility])[address] [place] [address] VIR Glucose [Mass/Vol] 185 mg/dL High 65-99 [facility] Comment on above: Performed By: #### B EDG ####[facility] ([facility])[address] [place] [address] VIR Glucose [Mass/Vol] 171 mg/dL High 65-99 [facility] Comment on above: Performed By: #### B EDG ####[facility] ([facility])[address] [place] [address] VIR CBC WITH AUTO DIFFERENTIALon 11-17-2024 BASOPHILS ABSOLUTE COUNT (10*3/UL) BY AUTOMATED COUNT 0.3 10*3/uL High 0.0-0.2 [facility] Comment on above: Result Comment: This is an appended report. These results have been appended to a previously preliminary verified report. Performed By: #### C BCA ####[facility] ([facility])[address] [address] VIR BASOPHILS RELATIVE PERCENT BY AUTOMATED COUNT 2.7 % Normal [facility] Comment on above: Result Comment: This is an appended report. These results have been appended to a previously preliminary verified report. Performed By: #### C BCA ####[facility])[address] [facility] [address], [place] [address] VIR CELLAVISION DIFFERENTIAL TYPE AUTOMATED DIFFERENTIAL Normal [facility] Comment on above: Result Comment: This is an appended report. These results have been appended to a previously preliminary verified report. Performed By: #### C BCA ####[facility])[address] [facility] [address], [place] [address] VIR Eosinophils (Bld) [#/Vol] 0.3 10*3/uL Normal 0.0-0.4 [facility] Comment on above: Result Comment: This is an appended report. These results have been appended to a previously preliminary verified report. Performed By: #### C BCA ####[facility])[address] [facility] [address], [place] [address] VIR EOSINOPHILS RELATIVE PERCENT BY AUTOMATED COUNT 2.5 % Normal [facility] Comment on above: Result Comment: This is an appended report. These results have been appended to a previously preliminary verified report. Performed By: #### C BCA ####[facility])[address], [place] [address] VIR Erythrocyte distribution width (RBC) [Ratio] 19.4 % High 11.5-15 [facility] Comment on above: Performed By: #### C BCA ####[facility], [place] [address] VIR Hematocrit (Bld) [Volume fraction] 36.8 % Low 39-50 [facility] Comment on above: Performed By: #### C BCA ####[facility], [place] [address] VIR Hemoglobin (Bld) [Mass/Vol] 12.2 g/dL Low 13-17 [facility] Comment on above: Performed By: #### C BCA ####[facility], [place] [address] VIR LYMPHOCYTES ABSOLUTE COUNT (10*3/UL) BY AUTOMATED COUNT 1.7 10*3/uL Normal 1.0-3.5 [facility] Comment on above: Result Comment: This is an appended report. These results have been appended to a previously preliminary verified report. Performed By: #### C BCA ####[facility] [facility] [address], [place] [address] VIR LYMPHOCYTES RELATIVE PERCENT BY AUTOMATED COUNT 15.3 % Normal [facility] Comment on above: Result Comment: This is an appended report. These results have been appended to a previously preliminary verified report. Performed By: #### C BCA ####[facility])[address], [place] [address] VIR MCH (RBC) [Entitic mass] 26.4 pg Low 27-34 [facility] Comment on above: Performed By: #### C BCA ####[facility])[address], [place] [address] VIR MCHC (RBC) [Mass/Vol] 33.2 g/dL Normal 32-36 [facility] Comment on above: Performed By: #### C BCA ####[facility])[address] [facility] [address], [place] [address] VIR MCV (RBC) [Entitic vol] 79 fL Low 80-100 [facility] Comment on above: Performed By: #### C BCA ####[facility])[address] [facility] [address], [place] [address] VIR MONOCYTES ABSOLUTE COUNT (10*3/UL) BY AUTOMATED COUNT 0.9 10*3/uL Normal 0.0-0.9 [facility] Comment on above: Result Comment: This is an appended report. These results have been appended to a previously preliminary verified report. Performed By: #### C BCA ####[facility])[address] [facility] [address], [place] [address] VIR MONOCYTES RELATIVE PERCENT BY AUTOMATED COUNT 8.3 % Normal [facility] Comment on above: Result Comment: This is an appended report. These results have been appended to a previously preliminary verified report. Performed By: #### C BCA ####[facility] [facility] [address], [place] [address] VIR NEUTROPHILS ABSOLUTE COUNT BY AUTOMATED COUNT 7.8 10*3/uL High 1.5-6.6 [facility] Comment on above: Result Comment: This is an appended report. These results have been appended to a previously preliminary verified report. Performed By: #### C BCA ####[facility] [facility] [address], [place] [address] VIR NEUTROPHILS RELATIVE PERCENT BY AUTOMATED COUNT 71.2 % Normal [facility] Comment on above: Result Comment: This is an appended report. These results have been appended to a previously preliminary verified report. Performed By: #### C BCA ####[facility])[address], [place] [address] VIR Platelet mean volume (Bld) [Entitic vol] 7.6 fL Normal 7-12 [facility] Comment on above: Performed By: #### C BCA ####[facility])[address], [place] [address] VIR Platelets (Bld) [#/Vol] 85 10*3/uL Low 150-450 [facility] Comment on above: Performed By: #### C BCA ####[facility])[address], [place] [address] VIR RBC COUNT 4.63 X10E12/L Normal 4.1-5.7 [facility] Comment on above: Performed By: #### C BCA ####[facility])[address], [place] [address] VIR WBC (Bld) [#/Vol] 10.9 10*3/uL Normal 4-11 [facility] Comment on above: Performed By: #### C BCA ####[facility])[address], [place] [address] VIR COMPREHENSIVE METABOLIC PANE [place] 11-17-2024 Albumin [Mass/Vol] 3.1 g/dL Low 3.2-5.3 [facility] Comment on above: Performed By: #### C MP ####[facility], [place] [address] VIR ALP [Catalytic activity/Vol] 118 U/L Normal 39-130 [facility] Comment on above: Performed By: #### C MP ####[facility])[address], [place] [address] VIR ALT [Catalytic activity/Vol] 24 U/L Normal <=40 [facility] Comment on above: Performed By: #### C MP ####[facility])[address], [place] [address] VIR Anion gap [Moles/Vol] 11 mmol/L Normal 5-15 [facility] Comment on above: Performed By: #### C MP ####[facility])[address], [place] [address] VIR AST [Catalytic activity/Vol] 21 U/L Normal <=41 [facility] Comment on above: Performed By: #### C MP ####[facility])[address], [place] [address] VIR Bilirubin [Mass/Vol] 0.8 mg/dL Normal 0.3-1.2 [facility] Comment on above: Performed By: #### C MP ####[facility])[address], [place] [address] VIR Calcium [Mass/Vol] 9.2 mg/dL Normal 8.5-10.5 [facility] Comment on above: Performed By: #### C MP ####[facility])[address], [place] [address] VIR Chloride [Moles/Vol] 113 mmol/L High 98-109 [facility] Comment on above: Performed By: #### C MP ####[facility])[address], [place] [address] VIR CO2 [Moles/Vol] 25 mmol/L Normal 22-32 [facility] Comment on above: Performed By: #### C MP ####[facility], [place] [address] VIR Creatinine [Mass/Vol] 1.06 mg/dL Normal 0.60-1.30 [facility] Comment on above: Result Comment: METH OD TRACEABLE TO IDMS STANDARD Performed By: #### C MP ####[facility], [place] [address] VIR GFR/1.73 sq M.predicted among non-blacks MDRD (S/P/Bld) [Vol rate/Area] 71 mL/min/{1.73_m2} Normal >=60 [facility] Comment on above: Result Comment: Repo rted eGFR is based on theCKD-EPI 2020 equation that doesnot use a race coefficient. Performed By: #### C MP ####[facility])[address], [place] [address] VIR Glucose [Mass/Vol] 178 mg/dL High 65-99 [facility] Comment on above: Performed By: #### C MP ####[facility])[address], [place] [address] VIR Potassium [Moles/Vol] 3.6 mmol/L Normal 3.5-5.0 [facility] Comment on above: Performed By: #### C MP ####[facility])[address], [place] [address] VIR Protein [Mass/Vol] 7.2 g/dL Normal 6.0-8.0 [facility] Comment on above: Performed By: #### C MP ####[facility])[address], [place] [address] VIR Sodium [Moles/Vol] 149 mmol/L High 134-146 [facility] Comment on above: Performed By: #### C MP ####[facility])[address], [place] [address] VIR Urea nitrogen [Mass/Vol] 23 mg/dL Normal 5-27 [facility] Comment on above: Performed By: #### C MP ####[facility])[address], [place] [address] VIR IONIZED CALCIUMon 11-17-2024 IONIZED CALCIUM - ICAN 5.1 mg/dL Normal 4.5-5.3 [facility] Comment on above: Performed By: #### I CA ####[facility])[address], [place] [address] VIR IONIZED MAGNESIUMon 11-18-19 Magnesium [Moles/Vol] 0.53 mmol/L Normal 0.45-0.74 [facility] Comment on above: Performed By: #### I MAG ####[facility])[address], [place] [address] VIR MAGNESIUMon 11-17-2024 Magnesium [Mass/Vol] 2.0 mg/dL Normal 1.8-2.6 [facility] Comment on above: Performed By: #### M G ####[facility])[address], [place] [address] VIR PHOSPHORUSon 11-17-2024 Phosphate [Mass/Vol] 3.7 mg/dL Normal 2.4-4.9 [facility] Comment on above: Order Comment: Obtai n phos level 4 hours after infusion complete as ordered Performed By: #### P HOS ####[facility])[address], [place] [address] VIR Phosphate [Mass/Vol] 1.7 mg/dL Low 2.4-4.9 [facility] Comment on above: Performed By: #### P HOS ####[facility])[address], [place] [address] VIR PROTIME AND INRon 11-17-2024 INR 1.3 High 0.9-1.2 [facility] Comment on above: Performed By: #### P INR ####[facility])[address], [place] [address] VIR PT Coag (PPP) [Time] 14.7 s High 9.8-13.2 [facility] Comment on above: Performed By: #### P INR ####[facility])[address], [place] [address] VIR BEDSIDE GLUCOSEon 11-16-2024 Glucose [Mass/Vol] 207 mg/dL High [address] [place] [address] Comment on above: Performed By: #### B EDG ####[facility] ([facility])[address] [facility] [place] [address] VIR Glucose [Mass/Vol] 192 mg/dL High [address] [place] [address] Comment on above: Performed By: #### B EDG ####[facility] ([facility])[address] [place] [address] VIR Glucose [Mass/Vol] 161 mg/dL High [address] [place] [address] Comment on above: Performed By: #### B EDG ####[facility] ([facility])[address] [place] [address] VIR Glucose [Mass/Vol] 145 mg/dL [address] Comment on above: Performed By: #### B EDG ####[facility] ([facility])[address] [place] [address] VIR Glucose [Mass/Vol] 169 mg/dL [address] Comment on above: Performed By: #### B EDG ####[facility] ([facility])[address] [facility] [address] VIR CBC WITH AUTO DIFFERENTIALon 11-16-2024 BASOPHILS ABSOLUTE COUNT (10*3/UL) BY AUTOMATED COUNT 0.1 10*3/uL Normal 0.0-0.2 [facility] Comment on above: Performed By: #### C BCA ####[facility])[address] [facility] [address], [place] [address] VIR BASOPHILS RELATIVE PERCENT BY AUTOMATED COUNT 0.8 % Normal [facility] Comment on above: Performed By: #### C BCA ####[facility])[address], [place] [address] VIR CELLAVISION DIFFERENTIAL TYPE AUTOMATED DIFFERENTIAL Normal [facility] Comment on above: Performed By: #### C BCA ####[facility])[address], [place] [address] VIR Eosinophils (Bld) [#/Vol] 0.2 10*3/uL Normal 0.0-0.4 [facility] Comment on above: Performed By: #### C BCA ####[facility])[address], [place] [address] VIR EOSINOPHILS RELATIVE PERCENT BY AUTOMATED COUNT 1.9 % Normal [facility] Comment on above: Performed By: #### C BCA ####[facility])[address], [place] [address] VIR Erythrocyte distribution width (RBC) [Ratio] 19.5 % High 11.5-15 [facility] Comment on above: Performed By: #### C BCA ####[facility])[address], [place] [address] VIR Hematocrit (Bld) [Volume fraction] 37.6 % Low 39-50 [facility] Comment on above: Performed By: #### C BCA ####[facility])[address], [place] [address] VIR Hemoglobin (Bld) [Mass/Vol] 12.1 g/dL Low 13-17 [facility] Comment on above: Performed By: #### C BCA ####[facility])[address], [place] [address] VIR LYMPHOCYTES ABSOLUTE COUNT (10*3/UL) BY AUTOMATED COUNT 1.7 10*3/uL Normal 1.0-3.5 [facility] Comment on above: Performed By: #### C BCA ####[facility])[address], [place] [address] VIR LYMPHOCYTES RELATIVE PERCENT BY AUTOMATED COUNT 14.2 % Normal [facility] Comment on above: Performed By: #### C BCA ####[facility])[address], [place] [address] VIR MCH (RBC) [Entitic mass] 25.5 pg Low 27-34 [facility] Comment on above: Performed By: #### C BCA ####[facility], [place] [address] VIR MCHC (RBC) [Mass/Vol] 32.1 g/dL Normal 32-36 [facility] Comment on above: Performed By: #### C BCA ####[facility])[address], [place] [address] VIR MCV (RBC) [Entitic vol] 79 fL Low 80-100 [facility] Comment on above: Performed By: #### C BCA ####[facility])[address], [place] [address] VIR MONOCYTES ABSOLUTE COUNT (10*3/UL) BY AUTOMATED COUNT 0.9 10*3/uL Normal 0.0-0.9 [facility] Comment on above: Performed By: #### C BCA ####[facility])[address], [place] [address] VIR MONOCYTES RELATIVE PERCENT BY AUTOMATED COUNT 7.7 % Normal [facility] Comment on above: Performed By: #### C BCA ####[facility])[address], [place] [address] VIR NEUTROPHILS ABSOLUTE COUNT BY AUTOMATED COUNT 9.1 10*3/uL High 1.5-6.6 [facility] Comment on above: Performed By: #### C BCA ####[facility])[address], [place] [address] VIR NEUTROPHILS RELATIVE PERCENT BY AUTOMATED COUNT 75.4 % Normal [facility] Comment on above: Performed By: #### C BCA ####[facility])[address], [place] [address] VIR Platelet mean volume (Bld) [Entitic vol] 7.1 fL Normal 7-12 [facility] Comment on above: Performed By: #### C BCA ####[facility])[address], [place] [address] VIR Platelets (Bld) [#/Vol] 81 10*3/uL Low 150-450 [facility] Comment on above: Performed By: #### C BCA ####[facility])[address], [place] [address] VIR RBC COUNT 4.73 X10E12/L Normal 4.1-5.7 [facility] Comment on above: Performed By: #### C BCA ####[facility], [place] [address] VIR WBC (Bld) [#/Vol] 12.1 10*3/uL High 4-11 [facility] Comment on above: Performed By: #### C BCA ####[facility], [place] [address] VIR COMPREHENSIVE METABOLIC PANE [place] 11-16-2024 Albumin [Mass/Vol] 3.0 g/dL Low 3.2-5.3 [facility] Comment on above: Performed By: #### C MP ####[facility], [place] [address] VIR ALP [Catalytic activity/Vol] 119 U/L Normal 39-130 [facility] Comment on above: Performed By: #### C MP ####[facility])[address], [place] [address] VIR ALT [Catalytic activity/Vol] 31 U/L Normal <=40 [facility] Comment on above: Performed By: #### C MP ####[facility], [place] [address] VIR Anion gap [Moles/Vol] 8 mmol/L Normal 5-15 [facility] Comment on above: Performed By: #### C MP ####[facility], [place] [address] VIR AST [Catalytic activity/Vol] 28 U/L Normal <=41 [facility] Comment on above: Performed By: #### C MP ####[facility], [place] [address] VIR Bilirubin [Mass/Vol] 0.9 mg/dL Normal 0.3-1.2 [facility] Comment on above: Performed By: #### C MP ####[facility], [place] [address] VIR Calcium [Mass/Vol] 8.8 mg/dL Normal 8.5-10.5 [facility] Comment on above: Performed By: #### C MP ####[facility] ([facility])[address], [place] [address] VIR Chloride [Moles/Vol] 111 mmol/L High 98-109 [facility] Comment on above: Performed By: #### C MP ####[facility], [place] [address] VIR CO2 [Moles/Vol] 25 mmol/L Normal 22-32 [facility] Comment on above: Performed By: #### C MP ####[facility], [place] [address] VIR Creatinine [Mass/Vol] 1.08 mg/dL Normal 0.60-1.30 [facility] Comment on above: Result Comment: METH OD TRACEABLE TO IDMS STANDARD Performed By: #### C MP ####[facility] ([facility], [place] [address] VIR GFR/1.73 sq M.predicted among non-blacks MDRD (S/P/Bld) [Vol rate/Area] 70 mL/min/{1.73_m2} Normal >=60 [facility] Comment on above: Result Comment: Repo rted eGFR is based on theCKD-EPI 2020 equation that doesnot use a race coefficient. Performed By: #### C MP ####[facility])[address], [place] [address] VIR Glucose [Mass/Vol] 189 mg/dL High 65-99 [facility] Comment on above: Performed By: #### C MP ####[facility])[address], [place] [address] VIR Potassium [Moles/Vol] 3.7 mmol/L Normal 3.5-5.0 [facility] Comment on above: Performed By: #### C MP ####[facility])[address], [place] [address] VIR Protein [Mass/Vol] 6.9 g/dL Normal 6.0-8.0 [facility] Comment on above: Performed By: #### C MP ####[facility])[address], [place] [address] VIR Sodium [Moles/Vol] 144 mmol/L Normal 134-146 [facility] Comment on above: Performed By: #### C MP ####[facility])[address], [place] [address] VIR Urea nitrogen [Mass/Vol] 22 mg/dL Normal 5-27 [facility] Comment on above: Performed By: #### C MP ####[facility])[address], [place] [address] VIR FERRITINon 11-16-2024 Ferritin [Mass/Vol] 236 ng/mL Normal 24-336 [facility] Comment on above: Performed By: #### F ERR ####[facility])[address], [place] [address] VIR FOLATEon 11-16-2024 FOLIC ACID 5.7 ng/mL Low >5.8 [facility] Comment on above: Performed By: #### F JESUS ####[facility])[address], [place] [address] VIR HEPARIN ANTI XA, UNFRACTIONA TEDon 11-16-2024 ANTI XA UFH 0.38 IU/mL Normal 0.30-0.70 [facility] Comment on above: Result Comment: Opti mal time for testing is 6 hrs post dosageThis test is specific for monitoring patients on UFH, and is not recommended for use with other Anti-Xa medications. Performed By: #### U FHXA ####[facility])[address], [place] [address] VIR IONIZED CALCIUMon 11-16-2024 IONIZED CALCIUM - ICAN 4.8 mg/dL Normal 4.5-5.3 [facility] Comment on above: Performed By: #### I CA ####[facility])[address], [place] [address] VIR IONIZED MAGNESIUMon 11-17-19 25 Magnesium [Moles/Vol] 0.43 mmol/L Low 0.45-0.74 [facility] Comment on above: Performed By: #### I MAG ####[facility])[address], [place] [address] VIR IRON AND TIBCon 11-16-2024 Iron [Mass/Vol] 38 ug/dL Low 50-212 [facility] Comment on above: Performed By: #### F EPR ####[facility])[address], [place] [address] VIR IRON BINDING 188 ug/dL Low 250-425 [facility] Comment on above: Performed By: #### F EPR ####[facility])[address], [place] [address] VIR IRON SATURATION 20 % SATURATION Normal 20-50 [facility] Comment on above: Performed By: #### F EPR ####[facility])[address], [place] [address] VIR Transferrin [Mass/Vol] 134 mg/dL Low 168-336 [facility] Comment on above: Performed By: #### F EPR ####[facility])[address], [place] [address] VIR MAGNESIUMon 11-16-2024 Magnesium [Mass/Vol] 1.7 mg/dL Low 1.8-2.6 [facility] Comment on above: Performed By: #### M G ####[facility])[address], [place] [address] VIR PHOSPHORUSon 11-16-2024 Phosphate [Mass/Vol] 1.3 mg/dL Low 2.4-4.9 [facility] Comment on above: Performed By: #### P HOS ####[facility])[address], [place] [address] VIR PROTIME AND INRon 11-16-2024 INR 1.3 High 0.9-1.2 [facility] Comment on above: Performed By: #### P INR ####[facility])[address], [place] [address] VIR PT Coag (PPP) [Time] 14.8 s High 9.8-13.2 [facility] Comment on above: Performed By: #### P INR ####[facility])[address], [place] [address] VIR VITAMIN B12on 11-16-2024 Cobalamin (Vitamin B12) [Mass/Vol] 958 pg/mL High 180-914 [facility] Comment on above: Performed By: #### B 12 ####[facility])[address], [place] [address] VIR BASIC METABOLIC PANELon 10-22 Anion gap [Moles/Vol] 10 mmol/L Normal 5-15 [facility] Comment on above: Performed By: #### B MP ####[facility])[address], [place] [address] VIR Calcium [Mass/Vol] 8.8 mg/dL Normal 8.5-10.5 [facility] Comment on above: Performed By: #### B MP ####[facility])[address], [place] [address] VIR Chloride [Moles/Vol] 109 mmol/L Normal 98-109 [facility] Comment on above: Performed By: #### B MP ####[facility])[address], [place] [address] VIR CO2 [Moles/Vol] 25 mmol/L Normal 22-32 [facility] Comment on above: Performed By: #### B MP ####[facility])[address], [place] [address] VIR Creatinine [Mass/Vol] 0.97 mg/dL Normal 0.60-1.30 [facility] Comment on above: Result Comment: METH OD TRACEABLE TO IDMS STANDARD Performed By: #### B MP ####[facility])[address], [place] [address] VIR GFR/1.73 sq M.predicted among non-blacks MDRD (S/P/Bld) [Vol rate/Area] 79 mL/min/{1.73_m2} Normal >=60 [facility] Comment on above: Result Comment: Repo rted eGFR is based on theCKD-EPI 2020 equation that doesnot use a race coefficient. Performed By: #### B MP ####[facility])[address], [place] [address] VIR Glucose [Mass/Vol] 234 mg/dL High 65-99 [facility] Comment on above: Performed By: #### B MP ####[facility])[address], [place] [address] VIR Potassium [Moles/Vol] 3.1 mmol/L Low 3.5-5.0 [facility] Comment on above: Performed By: #### B MP ####[facility])[address], [place] [address] VIR Sodium [Moles/Vol] 144 mmol/L Normal 134-146 [facility] Comment on above: Performed By: #### B MP ####[facility])[address], [place] [address] VIR Urea nitrogen [Mass/Vol] 21 mg/dL Normal 5-27 [facility] Comment on above: Performed By: #### B MP ####[facility])[address], [place] [address] VIR BEDSIDE GLUCOSEon 11-15-2024 Glucose [Mass/Vol] 211 mg/dL High 65-99 [facility] Comment on above: Performed By: #### B EDG ####[facility] ([facility])[address] [place] [address] VIR Glucose [Mass/Vol] 184 mg/dL High 65-99 [facility] Comment on above: Performed By: #### B EDG ####[facility] ([facility])[address] [place] [address] VIR Glucose [Mass/Vol] 187 mg/dL High 65-99 [facility] Comment on above: Performed By: #### B EDG ####[facility] ([facility])[address] [place] [address] VIR Glucose [Mass/Vol] 215 mg/dL High 65-99 [facility] Comment on above: Performed By: #### B EDG ####[facility] ([facility])[address] [place] [address] VIR CBC WITH AUTO DIFFERENTIALon 11-15-2024 CELLAVISION DIFFERENTIAL TYPE MANUAL DIFFERENTIAL Normal [facility] Comment on above: Result Comment: This is an appended report. These results have been appended to a previously preliminary verified report. Performed By: #### C BCA ####[facility])[address] [facility] [address], [place] [address] VIR CELLAVISION ELLIPTOCYTES IN BLOOD BY LIGHT MICROSCOPY 2+ Normal [facility] Comment on above: Result Comment: This is an appended report. These results have been appended to a previously preliminary verified report. Performed By: #### C BCA ####[facility])[address] [facility] [address] [address] VIR CELLAVISION EOSINOPHILS ABSOLUTE COUNT (10*3/UL) BY MANUAL COUNT 0.1 10*3/uL Normal 0.0-0.4 [facility] Comment on above: Result Comment: This is an appended report. These results have been appended to a previously preliminary verified report. Performed By: #### C BCA ####[facility])[address] [facility] [address], [place] [address] VIR CELLAVISION EOSINOPHILS PERCENT BY MANUAL COUNT 1 % Normal [facility] Comment on above: Result Comment: This is an appended report. These results have been appended to a previously preliminary verified report. Performed By: #### C BCA ####[facility])[address], [place] [address] VIR CELLAVISION LYMPHOCYTES ABSOLUTE COUNT (10*3/UL) BY MANUAL COUNT 1.2 10*3/uL Normal 1.0-3.5 [facility] Comment on above: Result Comment: This is an appended report. These results have been appended to a previously preliminary verified report. Performed By: #### C BCA ####[facility])[address], [place] [address] VIR CELLAVISION LYMPHOCYTES RELATIVE PERCENT BY MANUAL COUNT 12 % Normal [facility] Comment on above: Result Comment: This is an appended report. These results have been appended to a previously preliminary verified report. Performed By: #### C BCA ####[facility])[address], [place] [address] VIR CELLAVISION METAMYELOCYTES RELATIVE PERCENT BY MANUAL COUNT 1 % Normal [facility] Comment on above: Result Comment: This is an appended report. These results have been appended to a previously preliminary verified report. Performed By: #### C BCA ####[facility])[address], [place] [address] VIR CELLAVISION MONOCYTES ABSOLUTE COUNT (10*3/UL) IN BLOOD BY MANUAL COUNT 0.2 10*3/uL Normal 0.0-0.9 [facility] Comment on above: Result Comment: This is an appended report. These results have been appended to a previously preliminary verified report. Performed By: #### C BCA ####[facility])[address], [place] [address] VIR CELLAVISION MONOCYTES RELATIVE PERCENT BY MANUAL COUNT 2 % Normal [facility] Comment on above: Result Comment: This is an appended report. These results have been appended to a previously preliminary verified report. Performed By: #### C BCA ####[facility])[address], [place] [address] VIR CELLAVISION NEUTROPHILS ABSOLUTE COUNT BY MANUAL COUNT 8.4 10*3/uL High 1.5-6.6 [facility] Comment on above: Result Comment: This is an appended report. These results have been appended to a previously preliminary verified report. Performed By: #### C BCA ####[facility])[address], [place] [address] VIR CELLAVISION NEUTROPHILS RELATIVE PERCENT BY MANUAL COUNT 84 % Normal [facility] Comment on above: Result Comment: This is an appended report. These results have been appended to a previously preliminary verified report. Performed By: #### C BCA ####[facility])[address], [place] [address] VIR CELLAVISION NUCLEATED RED BLOOD CELLS IN BLOOD BY LIGHT MICROSCOPY 1 Normal [facility] Comment on above: Result Comment: This is an appended report. These results have been appended to a previously preliminary verified report. Performed By: #### C BCA ####[facility])[address], [place] [address] VIR CELLAVISION POLYCHROMASIA IN BLOOD BY LIGHT MICROSCOPY 1+ Normal [facility] Comment on above: Result Comment: This is an appended report. These results have been appended to a previously preliminary verified report. Performed By: #### C BCA ####[facility])[address], [place] [address] VIR Erythrocyte distribution width (RBC) [Ratio] 19.6 % High 11.5-15 [facility] Comment on above: Performed By: #### C BCA ####[facility])[address], [place] [address] VIR Hematocrit (Bld) [Volume fraction] 37.1 % Low 39-50 [facility] Comment on above: Performed By: #### C BCA ####[facility])[address], [place] [address] VIR Hemoglobin (Bld) [Mass/Vol] 12.4 g/dL Low 13-17 [facility] Comment on above: Performed By: #### C BCA ####[facility])[address], [place] [address] VIR MCH (RBC) [Entitic mass] 26.6 pg Low 27-34 [facility] Comment on above: Performed By: #### C BCA ####[facility])[address], [place] [address] VIR MCHC (RBC) [Mass/Vol] 33.3 g/dL Normal 32-36 [facility] Comment on above: Performed By: #### C BCA ####[facility])[address], [place] [address] VIR MCV (RBC) [Entitic vol] 80 fL Normal 80-100 [facility] Comment on above: Performed By: #### C BCA ####[facility])[address], [place] [address] VIR Platelet mean volume (Bld) [Entitic vol] 6.7 fL Low 7-12 [facility] Comment on above: Performed By: #### C BCA ####[facility])[address], [place] [address] VIR Platelets (Bld) [#/Vol] 70 10*3/uL Low 150-450 [facility] Comment on above: Performed By: #### C BCA ####[facility])[address], [place] [address] VIR RBC COUNT 4.66 X10E12/L Normal 4.1-5.7 [facility] Comment on above: Performed By: #### C BCA ####[facility])[address], [place] [address] VIR WBC (Bld) [#/Vol] 10.0 10*3/uL Normal 4-11 [facility] Comment on above: Performed By: #### C BCA ####[facility])[address], [place] [address] VIR HEPARIN ANTI XA, UNFRACTIONA TEDon 11-15-2024 ANTI XA UFH 0.33 IU/mL Normal 0.30-0.70 [facility] Comment on above: Result Comment: Opti mal time for testing is 6 hrs post dosageThis test is specific for monitoring patients on UFH, and is not recommended for use with other Anti-Xa medications. Performed By: #### U FHXA ####[facility])[address] [address] VIR ANTI XA UFH 0.36 IU/mL Normal 0.30-0.70 [facility] Comment on above: Result Comment: Opti mal time for testing is 6 hrs post dosageThis test is specific for monitoring patients on UFH, and is not recommended for use with other Anti-Xa medications. Performed By: #### U FHXA ####[facility])[address] [address] VIR ANTI XA UFH 0.27 IU/mL Low 0.30-0.70 [facility] Comment on above: Result Comment: Opti mal time for testing is 6 hrs post dosageThis test is specific for monitoring patients on UFH, and is not recommended for use with other Anti-Xa medications. Performed By: #### U FHXA ####[facility])[address] [address] VIR ANTI XA UFH 0.31 IU/mL Normal 0.30-0.70 [facility] Comment on above: Result Comment: Opti mal time for testing is 6 hrs post dosageThis test is specific for monitoring patients on UFH, and is not recommended for use with other Anti-Xa medications. Performed By: #### U FHXA ####[facility] ([facility])[address] [address] VIR IONIZED CALCIUMon 11-15-2024 IONIZED CALCIUM - ICAN 4.8 mg/dL Normal 4.5-5.3 [facility] Comment on above: Performed By: #### I CA ####[facility])[address], [place] [address] VIR IONIZED MAGNESIUMon 11-16-19 Magnesium [Moles/Vol] 0.46 mmol/L Normal 0.45-0.74 [facility] Comment on above: Performed By: #### I MAG ####[facility])[address], [place] [address] VIR MAGNESIUMon 11-15-2024 Magnesium [Mass/Vol] 1.8 mg/dL Normal 1.8-2.6 [facility] Comment on above: Performed By: #### M G ####[facility])[address], [place] [address] VIR PHOSPHORUSon 11-15-2024 Phosphate [Mass/Vol] 1.5 mg/dL Low 2.4-4.9 [facility] Comment on above: Performed By: #### P HOS ####[facility])[address], [place] [address] VIR POTASSIUMon 11-15-2024 Potassium [Moles/Vol] 4.1 mmol/L Normal 3.5-5.0 [facility] Comment on above: Performed By: #### K ####[facility])[address], [place] [address] VIR Potassium [Moles/Vol] 2.9 mmol/L Low 3.5-5.0 [facility] Comment on above: Performed By: #### K ####[facility])[address], [place] [address] VIR PROTIME AND INRon 11-15-2024 INR 1.3 High 0.9-1.2 [facility] Comment on above: Performed By: #### P INR ####[facility])[address], [place] [address] VIR PT Coag (PPP) [Time] 14.9 s High 9.8-13.2 [facility] Comment on above: Performed By: #### P INR ####[facility])[address], [place] [address] VIR BASIC METABOLIC PANELon 05-2 Anion gap [Moles/Vol] 9 mmol/L Normal 5-15 [facility] Comment on above: Performed By: #### B MP ####[facility])[address], [place] [address] VIR Calcium [Mass/Vol] 8.8 mg/dL Normal 8.5-10.5 [facility] Comment on above: Performed By: #### B MP ####[facility])[address], [place] [address] VIR Chloride [Moles/Vol] 110 mmol/L High 98-109 [facility] Comment on above: Performed By: #### B MP ####[facility])[address], [place] [address] VIR CO2 [Moles/Vol] 23 mmol/L Normal 22-32 [facility] Comment on above: Performed By: #### B MP ####[facility] ([facility])[address], [place] [address] VIR Creatinine [Mass/Vol] 1.04 mg/dL Normal 0.60-1.30 [facility] Comment on above: Result Comment: METH OD TRACEABLE TO IDMS STANDARD Performed By: #### B MP ####[facility] ([facility])[address], [place] [address] VIR GFR/1.73 sq M.predicted among non-blacks MDRD (S/P/Bld) [Vol rate/Area] 73 mL/min/{1.73_m2} Normal >=60 [facility] Comment on above: Result Comment: Repo rted eGFR is based on theCKD-EPI 2021 equation that doesnot use a race coefficient. Performed By: #### B MP ####[facility])[address], [place] [address] VIR Glucose [Mass/Vol] 160 mg/dL High 65-99 [facility] Comment on above: Performed By: #### B MP ####[facility])[address], [place] [address] VIR Potassium [Moles/Vol] 3.3 mmol/L Low 3.5-5.0 [facility] Comment on above: Performed By: #### B MP ####[facility])[address], [place] [address] VIR Sodium [Moles/Vol] 142 mmol/L Normal 134-146 [facility] Comment on above: Performed By: #### B MP ####[facility])[address], [place] [address] VIR Urea nitrogen [Mass/Vol] 20 mg/dL Normal 5-27 [facility] Comment on above: Performed By: #### B MP ####[facility])[address], [place] [address] VIR BEDSIDE GLUCOSEon 11-14-2024 Glucose [Mass/Vol] 186 mg/dL High 65-99 [facility] Comment on above: Performed By: #### B EDG ####[facility] ([facility])[address] [place] [address] VIR Glucose [Mass/Vol] 167 mg/dL High 65-99 [facility] Comment on above: Performed By: #### B EDG ####[facility] ([facility])[address] [place] [address] VIR Glucose [Mass/Vol] 189 mg/dL High 65-99 [facility] Comment on above: Performed By: #### B EDG ####[facility] ([facility])[address] [place] [address] VIR Glucose [Mass/Vol] 133 mg/dL High 65-99 [facility] Comment on above: Performed By: #### B EDG ####[facility] ([facility])[address] [place] [address] VIR Glucose [Mass/Vol] 115 mg/dL High 65-99 [facility] Comment on above: Performed By: #### B EDG ####[facility] ([facility])[address] [place] [address] VIR CBC (NO DIFF)on 11-14-2024 Erythrocyte distribution width (RBC) [Ratio] 19.2 % High 11.5-15 [facility] Comment on above: Performed By: #### C BC ####[facility] ([facility])[address], [place] [address] VIR Hematocrit (Bld) [Volume fraction] 36.5 % Low 39-50 [facility] Comment on above: Performed By: #### C BC ####[facility] ([facility])[address], [place] [address] VIR Hemoglobin (Bld) [Mass/Vol] 12.1 g/dL Low 13-17 [facility] Comment on above: Performed By: #### C BC ####[facility], [place] [address] VIR MCH (RBC) [Entitic mass] 26.0 pg Low 27-34 [facility] Comment on above: Performed By: #### C BC ####[facility], [place] [address] VIR MCHC (RBC) [Mass/Vol] 33.0 g/dL Normal 32-36 [facility] Comment on above: Performed By: #### C BC ####[facility])[address], [place] [address] VIR MCV (RBC) [Entitic vol] 79 fL Low 80-100 [facility] Comment on above: Performed By: #### C BC ####[facility])[address], [place] [address] VIR Platelet mean volume (Bld) [Entitic vol] 6.6 fL Low 7-12 [facility] Comment on above: Performed By: #### C BC ####[facility])[address], [place] [address] VIR Platelets (Bld) [#/Vol] 80 10*3/uL Low 150-450 [facility] Comment on above: Performed By: #### C BC ####[facility])[address], [place] [address] VIR RBC COUNT 4.64 X10E12/L Normal 4.1-5.7 [facility] Comment on above: Performed By: #### C BC ####[facility] [place] [address] VIR WBC (Bld) [#/Vol] 8.1 10*3/uL Normal 4-11 [facility] Comment on above: Performed By: #### C BC ####[facility])[address], [place] [address] VIR HEPARIN ANTI XA, UNFRACTIONA TEDon 11-14-2024 ANTI XA UFH 0.27 IU/mL Low 0.30-0.70 [facility] Comment on above: Result Comment: Opti mal time for testing is 6 hrs post dosageThis test is specific for monitoring patients on UFH, and is not recommended for use with other Anti-Xa medications. Performed By: #### U FHXA ####[facility], [place] [address] VIR MAGNESIUMon 11-14-2024 Magnesium [Mass/Vol] 1.7 mg/dL Low 1.8-2.6 [facility] Comment on above: Performed By: #### M G ####[facility], [place] [address] VIR POTASSIUMon 11-14-2024 Potassium [Moles/Vol] 3.7 mmol/L Normal 3.5-5.0 [facility] Comment on above: Performed By: #### K ####[facility])[address], [place] [address] VIR PROTIME AND INRon 11-14-2024 INR 1.3 High 0.9-1.2 [facility] Comment on above: Performed By: #### P INR ####[facility])[address], [place] [address] VIR PT Coag (PPP) [Time] 14.8 s High 9.8-13.2 [facility] Comment on above: Performed By: #### P INR ####[facility])[address], [place] [address] VIR BASIC METABOLIC PANELon 10-22 Anion gap [Moles/Vol] 11 mmol/L Normal 5-15 [facility] Comment on above: Performed By: #### B MP ####[facility])[address], [place] [address] VIR Calcium [Mass/Vol] 8.8 mg/dL Normal 8.5-10.5 [facility] Comment on above: Performed By: #### B MP ####[facility])[address], [place] [address] VIR Chloride [Moles/Vol] 110 mmol/L High 98-109 [facility] Comment on above: Performed By: #### B MP ####[facility])[address], [place] [address] VIR CO2 [Moles/Vol] 23 mmol/L Normal 22-32 [facility] Comment on above: Performed By: #### B MP ####[facility])[address], [place] [address] VIR Creatinine [Mass/Vol] 1.10 mg/dL Normal 0.60-1.30 [facility] Comment on above: Result Comment: METH OD TRACEABLE TO IDMS STANDARD Performed By: #### B MP ####[facility])[address], [place] [address] VIR GFR/1.73 sq M.predicted among non-blacks MDRD (S/P/Bld) [Vol rate/Area] 68 mL/min/{1.73_m2} Normal >=60 [facility] Comment on above: Result Comment: Repo rted eGFR is based on theCKD-EPI 2020 equation that doesnot use a race coefficient. Performed By: #### B MP ####[facility])[address], [place] [address] VIR Glucose [Mass/Vol] 80 mg/dL Normal 65-99 [facility] Comment on above: Performed By: #### B MP ####[facility])[address], [place] [address] VIR Potassium [Moles/Vol] 3.4 mmol/L Low 3.5-5.0 [facility] Comment on above: Performed By: #### B MP ####[facility])[address], [place] [address] VIR Sodium [Moles/Vol] 144 mmol/L Normal 134-146 [facility] Comment on above: Performed By: #### B MP ####[facility])[address], [place] [address] VIR Urea nitrogen [Mass/Vol] 21 mg/dL Normal 5-27 [facility] Comment on above: Performed By: #### B MP ####[facility])[address], [place] [address] VIR BEDSIDE GLUCOSEon 11-13-2024 Glucose [Mass/Vol] 75 mg/dL Normal 65-99 [facility] Comment on above: Performed By: #### B EDG ####[facility] ([facility])[address] [place] [address] VIR Glucose [Mass/Vol] 81 mg/dL Normal 65-99 [facility] Comment on above: Performed By: #### B EDG ####[facility] ([facility])[address] [place] [address] VIR Glucose [Mass/Vol] 106 mg/dL High 65-99 [facility] Comment on above: Performed By: #### B EDG ####[facility] ([facility])[address] [place] [address] VIR Glucose [Mass/Vol] 133 mg/dL High 65-99 [facility] Comment on above: Performed By: #### B EDG ####[facility] ([facility])[address] [place] [address] VIR Glucose [Mass/Vol] 68 mg/dL Normal 65-99 [facility] Comment on above: Performed By: #### B EDG ####[facility] ([facility])[address] [place] [address] VIR CBC WITH AUTO DIFFERENTIALon 11-13-2024 BASOPHILS ABSOLUTE COUNT (10*3/UL) BY AUTOMATED COUNT 0.1 10*3/uL Normal 0.0-0.2 [facility] Comment on above: Result Comment: This is an appended report. These results have been appended to a previously preliminary verified report. Performed By: #### C BCA ####[facility])[address], [place] [address] VIR BASOPHILS RELATIVE PERCENT BY AUTOMATED COUNT 0.8 % Normal [facility] Comment on above: Result Comment: This is an appended report. These results have been appended to a previously preliminary verified report. Performed By: #### C BCA ####[facility])[address], [place] [address] VIR CELLAVISION DIFFERENTIAL TYPE AUTOMATED DIFFERENTIAL Normal [facility] Comment on above: Result Comment: This is an appended report. These results have been appended to a previously preliminary verified report. Performed By: #### C BCA ####[facility])[address], [place] [address] VIR CELLAVISION ELLIPTOCYTES IN BLOOD BY LIGHT MICROSCOPY 1+ Normal [facility] Comment on above: Result Comment: This is an appended report. These results have been appended to a previously preliminary verified report. Performed By: #### C BCA ####[facility])[address], [place] [address] VIR CELLAVISION POLYCHROMASIA IN BLOOD BY LIGHT MICROSCOPY 1+ Normal [facility] Comment on above: Result Comment: This is an appended report. These results have been appended to a previously preliminary verified report. Performed By: #### C BCA ####[facility])[address], [place] [address] VIR Eosinophils (Bld) [#/Vol] 0.2 10*3/uL Normal 0.0-0.4 [facility] Comment on above: Result Comment: This is an appended report. These results have been appended to a previously preliminary verified report. Performed By: #### C BCA ####[facility])[address], [place] [address] VIR EOSINOPHILS RELATIVE PERCENT BY AUTOMATED COUNT 2.2 % Normal [facility] Comment on above: Result Comment: This is an appended report. These results have been appended to a previously preliminary verified report. Performed By: #### C BCA ####[facility])[address], [place] [address] VIR Erythrocyte distribution width (RBC) [Ratio] 19.7 % High 11.5-15 [facility] Comment on above: Performed By: #### C BCA ####[facility])[address], [place] [address] VIR Hematocrit (Bld) [Volume fraction] 37.0 % Low 39-50 [facility] Comment on above: Performed By: #### C BCA ####[facility])[address], [place] [address] VIR Hemoglobin (Bld) [Mass/Vol] 12.2 g/dL Low 13-17 [facility] Comment on above: Performed By: #### C BCA ####[facility])[address], [place] [address] VIR LYMPHOCYTES ABSOLUTE COUNT (10*3/UL) BY AUTOMATED COUNT 1.1 10*3/uL Normal 1.0-3.5 [facility] Comment on above: Result Comment: This is an appended report. These results have been appended to a previously preliminary verified report. Performed By: #### C BCA ####[facility])[address], [place] [address] VIR LYMPHOCYTES RELATIVE PERCENT BY AUTOMATED COUNT 15.8 % Normal [facility] Comment on above: Result Comment: This is an appended report. These results have been appended to a previously preliminary verified report. Performed By: #### C BCA ####[facility])[address], [place] [address] VIR MCH (RBC) [Entitic mass] 26.2 pg Low 27-34 [facility] Comment on above: Performed By: #### C BCA ####[facility])[address], [place] [address] VIR MCHC (RBC) [Mass/Vol] 33.0 g/dL Normal 32-36 [facility] Comment on above: Performed By: #### C BCA ####[facility])[address], [place] [address] VIR MCV (RBC) [Entitic vol] 80 fL Normal 80-100 [facility] Comment on above: Performed By: #### C BCA ####[facility])[address], [place] [address] VIR MONOCYTES ABSOLUTE COUNT (10*3/UL) BY AUTOMATED COUNT 0.4 10*3/uL Normal 0.0-0.9 [facility] Comment on above: Result Comment: This is an appended report. These results have been appended to a previously preliminary verified report. Performed By: #### C BCA ####[facility])[address], [place] [address] VIR MONOCYTES RELATIVE PERCENT BY AUTOMATED COUNT 5.9 % Normal [facility] Comment on above: Result Comment: This is an appended report. These results have been appended to a previously preliminary verified report. Performed By: #### C BCA ####[facility])[address], [place] [address] VIR NEUTROPHILS ABSOLUTE COUNT BY AUTOMATED COUNT 5.4 10*3/uL Normal 1.5-6.6 [facility] Comment on above: Result Comment: This is an appended report. These results have been appended to a previously preliminary verified report. Performed By: #### C BCA ####[facility])[address], [place] [address] VIR NEUTROPHILS RELATIVE PERCENT BY AUTOMATED COUNT 75.3 % Normal [facility] Comment on above: Result Comment: This is an appended report. These results have been appended to a previously preliminary verified report. Performed By: #### C BCA ####[facility])[address], [place] [address] VIR Platelet mean volume (Bld) [Entitic vol] 7.0 fL Normal 7-12 [facility] Comment on above: Performed By: #### C BCA ####[facility])[address], [place] [address] VIR Platelets (Bld) [#/Vol] 93 10*3/uL Low 150-450 [facility] Comment on above: Performed By: #### C BCA ####[facility])[address], [place] [address] VIR RBC COUNT 4.65 X10E12/L Normal 4.1-5.7 [facility] Comment on above: Performed By: #### C BCA ####[facility], [place] [address] VIR WBC (Bld) [#/Vol] 7.2 10*3/uL Normal 4-11 [facility] Comment on above: Performed By: #### C BCA ####[facility])[address] [facility] [address], [place] [address] VIR HEPARIN ANTI XA, UNFRACTIONA TEDon 11-13-2024 ANTI XA UFH 0.47 IU/mL Normal 0.30-0.70 [facility] Comment on above: Result Comment: Opti mal time for testing is 6 hrs post dosageThis test is specific for monitoring patients on UFH, and is not recommended for use with other Anti-Xa medications. Performed By: #### U FHXA ####[facility])[address] [facility] [address], [place] [address] VIR BEDSIDE GLUCOSEon 11-12-2024 Glucose [Mass/Vol] 142 mg/dL High 65-99 [facility] Comment on above: Performed By: #### B EDG ####[facility] ([facility])[address] [place] [address] VIR Glucose [Mass/Vol] 66 mg/dL Normal 65-99 [facility] Comment on above: Performed By: #### B EDG ####[facility] ([facility])[address] [place] [address] VIR Glucose [Mass/Vol] 89 mg/dL Normal 65-99 [facility] Comment on above: Performed By: #### B EDG ####[facility] ([facility])[address] [facility] [place] [address] VIR Glucose [Mass/Vol] 112 mg/dL High 65-99 [facility] Comment on above: Performed By: #### B EDG ####[facility] ([facility])[address] [place] [place] [address] VIR Glucose [Mass/Vol] 106 mg/dL High 65-99 [facility] Comment on above: Performed By: #### B EDG ####[facility] ([facility])[address] [place] [address] VIR CBC (NO DIFF)on 11-12-2024 Erythrocyte distribution width (RBC) [Ratio] 19.2 % High 11.5-15 [facility] Comment on above: Performed By: #### C BC ####[facility])[address], [place] [address] VIR Hematocrit (Bld) [Volume fraction] 39.9 % Normal 39-50 [facility] Comment on above: Performed By: #### C BC ####[facility])[address], [place] [address] VIR Hemoglobin (Bld) [Mass/Vol] 13.1 g/dL Normal 13-17 [facility] Comment on above: Performed By: #### C BC ####[facility])[address], [place] [address] VIR MCH (RBC) [Entitic mass] 26.5 pg Low 27-34 [facility] Comment on above: Performed By: #### C BC ####[facility])[address], [place] [address] VIR MCHC (RBC) [Mass/Vol] 33.0 g/dL Normal 32-36 [facility] Comment on above: Performed By: #### C BC ####[facility])[address], [place] [address] VIR MCV (RBC) [Entitic vol] 80 fL Normal 80-100 [facility] Comment on above: Performed By: #### C BC ####[facility])[address], [place] [address] VIR Platelet mean volume (Bld) [Entitic vol] 6.7 fL Low 7-12 [facility] Comment on above: Performed By: #### C BC ####[facility])[address], [place] [address] VIR Platelets (Bld) [#/Vol] 104 10*3/uL Low 150-450 [facility] Comment on above: Performed By: #### C BC ####[facility])[address], [place] [address] VIR RBC COUNT 4.97 X10E12/L Normal 4.1-5.7 [facility] Comment on above: Performed By: #### C BC ####[facility])[address], [place] [address] VIR WBC (Bld) [#/Vol] 7.7 10*3/uL Normal 4-11 [facility] Comment on above: Performed By: #### C BC ####[facility])[address], [place] [address] VIR CK TOTALon 11-12-2024 CPK 26 U/L Normal 24-195 [facility] Comment on above: Performed By: #### C PK ####[facility])[address], [place] [address] VIR COMPREHENSIVE METABOLIC PANE [place] 11-12-2024 Albumin [Mass/Vol] 3.1 g/dL Low 3.2-5.3 [facility] Comment on above: Performed By: #### C MP ####[facility])[address], [place] [address] VIR ALP [Catalytic activity/Vol] 109 U/L Normal 39-130 [facility] Comment on above: Performed By: #### C MP ####[facility])[address], [place] [address] VIR ALT [Catalytic activity/Vol] 20 U/L Normal <=40 [facility] Comment on above: Performed By: #### C MP ####[facility])[address], [place] [address] VIR Anion gap [Moles/Vol] 13 mmol/L Normal 5-15 [facility] Comment on above: Performed By: #### C MP ####[facility])[address], [place] [address] VIR AST [Catalytic activity/Vol] 24 U/L Normal <=41 [facility] Comment on above: Performed By: #### C MP ####[facility])[address], [place] [address] VIR Bilirubin [Mass/Vol] 1.2 mg/dL Normal 0.3-1.2 [facility] Comment on above: Performed By: #### C MP ####[facility])[address], [place] [address] VIR Calcium [Mass/Vol] 8.8 mg/dL Normal 8.5-10.5 [facility] Comment on above: Performed By: #### C MP ####[facility])[address], [place] [address] VIR Chloride [Moles/Vol] 111 mmol/L High 98-109 [facility] Comment on above: Performed By: #### C MP ####[facility])[address], [place] [address] VIR CO2 [Moles/Vol] 23 mmol/L Normal 22-32 [facility] Comment on above: Performed By: #### C MP ####[facility])[address], [place] [address] VIR Creatinine [Mass/Vol] 1.21 mg/dL Normal 0.60-1.30 [facility] Comment on above: Result Comment: METH OD TRACEABLE TO IDMS STANDARD Performed By: #### C MP ####[facility])[address], [place] [address] VIR GFR/1.73 sq M.predicted among non-blacks MDRD (S/P/Bld) [Vol rate/Area] 61 mL/min/{1.73_m2} Normal >=60 [facility] Comment on above: Result Comment: Repo rted eGFR is based on theCKD-EPI 2020 equation that doesnot use a race coefficient. Performed By: #### C MP ####[facility])[address], [place] [address] VIR Glucose [Mass/Vol] 100 mg/dL High 65-99 [facility] Comment on above: Performed By: #### C MP ####[facility])[address], [place] [address] VIR Potassium [Moles/Vol] 3.3 mmol/L Low 3.5-5.0 [facility] Comment on above: Performed By: #### C MP ####[facility])[address], [place] [address] VIR Protein [Mass/Vol] 6.9 g/dL Normal 6.0-8.0 [facility] Comment on above: Performed By: #### C MP ####[facility])[address], [place] [address] VIR Sodium [Moles/Vol] 147 mmol/L High 134-146 [facility] Comment on above: Performed By: #### C MP ####[facility])[address], [place] [address] VIR Urea nitrogen [Mass/Vol] 23 mg/dL Normal 5-27 [facility] Comment on above: Performed By: #### C MP ####[facility])[address], [place] [address] VIR FL SWALLOW MOTILITY FUNCTION on 11-12-2024 FL SWALLOW MOTILITY FUNCTION Normal [facility] HEPARIN ANTI XA, UNFRACTIONA TEDon 11-12-2024 ANTI XA UFH 0.43 IU/mL Normal 0.30-0.70 [facility] Comment on above: Result Comment: Opti mal time for testing is 6 hrs post dosageThis test is specific for monitoring patients on UFH, and is not recommended for use with other Anti-Xa medications. Performed By: #### U FHXA ####[facility])[address], [place] [address] VIR MAGNESIUMon 11-12-2024 Magnesium [Mass/Vol] 2.2 mg/dL Normal 1.8-2.6 [facility] Comment on above: Performed By: #### M G ####[facility])[address], [place] [address] VIR Magnesium [Mass/Vol] 1.8 mg/dL Normal 1.8-2.6 [facility] Comment on above: Performed By: #### M G ####[facility])[address], [place] [address] VIR POTASSIUMon 11-12-2024 Potassium [Moles/Vol] 3.7 mmol/L Normal 3.5-5.0 [facility] Comment on above: Performed By: #### K ####[facility] ([facility])[address], [place] [address] VIR XR CHEST 1 VWon 11-12-2024 XR CHEST 1 VW Normal [facility] BEDSIDE GLUCOSEon 11-11-2024 Glucose [Mass/Vol] 96 mg/dL Normal 65-99 [facility] Comment on above: Performed By: #### B EDG ####[facility] ([facility])[address] [place] [address] VIR Glucose [Mass/Vol] 127 mg/dL High 65-99 [facility] Comment on above: Performed By: #### B EDG ####[facility] ([facility])[address] [place] [address] VIR Glucose [Mass/Vol] 178 mg/dL High 65-99 [facility] Comment on above: Performed By: #### B EDG ####[facility] ([facility])[address] [place] [address] VIR Glucose [Mass/Vol] 109 mg/dL High 65-99 [facility] Comment on above: Performed By: #### B EDG ####[facility] ([facility])[address] [facility] [place] [address] VIR Glucose [Mass/Vol] 111 mg/dL High 65-99 [facility] Comment on above: Performed By: #### B EDG ####[facility] ([facility])[address] [place] [address] VIR CBC (NO DIFF)on 11-11-2024 Erythrocyte distribution width (RBC) [Ratio] 19.3 % High 11.5-15 [facility] Comment on above: Performed By: #### C BC ####[facility] ([facility])[address], [place] [address] VIR Hematocrit (Bld) [Volume fraction] 39.2 % Normal 39-50 [facility] Comment on above: Performed By: #### C BC ####[facility] ([facility])[address], [place] [address] VIR Hemoglobin (Bld) [Mass/Vol] 13.2 g/dL Normal 13-17 [facility] Comment on above: Performed By: #### C BC ####[facility] ([facility])[address], [place] [address] VIR MCH (RBC) [Entitic mass] 26.7 pg Low 27-34 [facility] Comment on above: Performed By: #### C BC ####[facility] ([facility])[address], [place] [address] VIR MCHC (RBC) [Mass/Vol] 33.6 g/dL Normal 32-36 [facility] Comment on above: Performed By: #### C BC ####[facility] ([facility])[address], [place] [address] VIR MCV (RBC) [Entitic vol] 79 fL Low 80-100 [facility] Comment on above: Performed By: #### C BC ####[facility] ([facility])[address], [place] [address] VIR Platelet mean volume (Bld) [Entitic vol] 7.2 fL Normal 7-12 [facility] Comment on above: Performed By: #### C BC ####[facility] ([facility])[address], [place] [address] VIR Platelets (Bld) [#/Vol] 133 10*3/uL Low 150-450 [facility] Comment on above: Performed By: #### C BC ####[facility] ([facility])[address], [place] [address] VIR RBC COUNT 4.93 X10E12/L Normal 4.1-5.7 [facility] Comment on above: Performed By: #### C BC ####[facility] ([facility])[address], [place] [address] VIR WBC (Bld) [#/Vol] 8.3 10*3/uL Normal 4-11 [facility] Comment on above: Performed By: #### C BC ####[facility] ([facility])[address], [place] [address] VIR CK TOTALon 11-11-2024 CPK 20 U/L Low 24-195 [facility] Comment on above: Performed By: #### C PK ####[facility] ([facility])[address], [place] [address] VIR COMPREHENSIVE METABOLIC PANE [place] 11-11-2024 Albumin [Mass/Vol] 3.2 g/dL Normal 3.2-5.3 [facility] Comment on above: Performed By: #### C MP ####[facility] ([facility])[address], [place] [address] VIR ALP [Catalytic activity/Vol] 123 U/L Normal 39-130 [facility] Comment on above: Performed By: #### C MP ####[facility] ([facility])[address], [place] [address] VIR ALT [Catalytic activity/Vol] 25 U/L Normal <=40 [facility] Comment on above: Performed By: #### C MP ####[facility] ([facility])[address], [place] [address] VIR Anion gap [Moles/Vol] 14 mmol/L Normal 5-15 [facility] Comment on above: Performed By: #### C MP ####[facility] ([facility])[address], [place] [address] VIR AST [Catalytic activity/Vol] 27 U/L Normal <=41 [facility] Comment on above: Performed By: #### C MP ####[facility] ([facility])[address], [place] [address] VIR Bilirubin [Mass/Vol] 1.2 mg/dL Normal 0.3-1.2 [facility] Comment on above: Performed By: #### C MP ####[facility] ([facility])[address], [place] [address] VIR Calcium [Mass/Vol] 9.2 mg/dL Normal 8.5-10.5 [facility] Comment on above: Performed By: #### C MP ####[facility] ([facility])[address], [place] [address] VIR Chloride [Moles/Vol] 110 mmol/L High 98-109 [facility] Comment on above: Performed By: #### C MP ####[facility] ([facility])[address], [place] [address] VIR CO2 [Moles/Vol] 26 mmol/L Normal 22-32 [facility] Comment on above: Performed By: #### C MP ####[facility] ([facility])[address], [place] [address] VIR Creatinine [Mass/Vol] 1.25 mg/dL Normal 0.60-1.30 [facility] Comment on above: Result Comment: METH OD TRACEABLE TO IDMS STANDARD Performed By: #### C MP ####[facility] ([facility])[address], [place] [address] VIR GFR/1.73 sq M.predicted among non-blacks MDRD (S/P/Bld) [Vol rate/Area] 59 mL/min/{1.73_m2} Low >=60 [facility] Comment on above: Result Comment: Repo rted eGFR is based on theCKD-EPI 2020 equation that doesnot use a race coefficient. Performed By: #### C MP ####[facility] ([facility])[address], [place] [address] VIR Glucose [Mass/Vol] 120 mg/dL High 65-99 [facility] Comment on above: Performed By: #### C MP ####[facility] ([facility])[address], [place] [address] VIR Potassium [Moles/Vol] 3.2 mmol/L Low 3.5-5.0 [facility] Comment on above: Performed By: #### C MP ####[facility] ([facility])[address], [place] [address] VIR Protein [Mass/Vol] 7.4 g/dL Normal 6.0-8.0 [facility] Comment on above: Performed By: #### C MP ####[facility] ([facility])[address], [place] [address] VIR Sodium [Moles/Vol] 150 mmol/L High 134-146 [facility] Comment on above: Performed By: #### C MP ####[facility] ([facility])[address], [place] [address] VIR Urea nitrogen [Mass/Vol] 22 mg/dL Normal 5-27 [facility] Comment on above: Performed By: #### C MP ####[facility] ([facility])[address], [place] [address] VIR HEPARIN ANTI XA, UNFRACTIONA TEDon 11-11-2024 ANTI XA UFH 0.39 IU/mL Normal 0.30-0.70 [facility] Comment on above: Result Comment: Opti mal time for testing is 6 hrs post dosageThis test is specific for monitoring patients on UFH, and is not recommended for use with other Anti-Xa medications. Performed By: #### U FHXA ####[facility] ([facility])[address], [place] [address] VIR ANTI XA UFH 0.41 IU/mL Normal 0.30-0.70 [facility] Comment on above: Result Comment: Opti mal time for testing is 6 hrs post dosageThis test is specific for monitoring patients on UFH, and is not recommended for use with other Anti-Xa medications. Performed By: #### U FHXA ####[facility] ([facility])[address], [place] [address] VIR MAGNESIUMon 11-11-2024 Magnesium [Mass/Vol] 1.9 mg/dL Normal 1.8-2.6 [facility] Comment on above: Performed By: #### M G ####[facility] ([facility])[address], [place] [address] VIR Magnesium [Mass/Vol] 1.7 mg/dL Low 1.8-2.6 [facility] Comment on above: Performed By: #### M G ####[facility] ([facility])[address], [place] [address] VIR POTASSIUMon 11-11-2024 Potassium [Moles/Vol] 3.5 mmol/L Normal 3.5-5.0 [facility] Comment on above: Performed By: #### K ####[facility] ([facility])[address], [place] [address] VIR APTTon 11-10-2024 aPTT Coag (Bld) [Time] 29 s Normal 26-37 [facility] Comment on above: Performed By: #### P TT ####[facility] ([facility])[address], [place] [address] VIR BEDSIDE GLUCOSEon 11-10-2024 Glucose [Mass/Vol] 117 mg/dL High 65-99 [facility] Comment on above: Performed By: #### B EDG ####[facility] ([facility])[address] [place] [address] VIR Glucose [Mass/Vol] 144 mg/dL High 65-99 [facility] Comment on above: Performed By: #### B EDG ####[facility] ([facility])[address] [place] [address] VIR Glucose [Mass/Vol] 173 mg/dL High 65-99 [facility] Comment on above: Performed By: #### B EDG ####[facility] ([facility])[address] [place] [address] VIR Glucose [Mass/Vol] 138 mg/dL High 65-99 [facility] Comment on above: Performed By: #### B EDG ####[facility] ([facility])[address] [place] [address] VIR Glucose [Mass/Vol] 126 mg/dL High 65-99 [facility] Comment on above: Performed By: #### B EDG ####[facility] ([facility])[address] [place] [address] VIR CBC (NO DIFF)on 11-10-2024 Erythrocyte distribution width (RBC) [Ratio] 19.3 % High 11.5-15 [facility] Comment on above: Performed By: #### C BC ####[facility] ([facility])[address], [place] [address] VIR Hematocrit (Bld) [Volume fraction] 43.1 % Normal 39-50 [facility] Comment on above: Performed By: #### C BC ####[facility] ([facility])[address], [place] [address] VIR Hemoglobin (Bld) [Mass/Vol] 14.2 g/dL Normal 13-17 [facility] Comment on above: Performed By: #### C BC ####[facility] ([facility])[address], [place] [address] VIR MCH (RBC) [Entitic mass] 26.4 pg Low 27-34 [facility] Comment on above: Performed By: #### C BC ####[facility] ([facility])[address], [place] [address] VIR MCHC (RBC) [Mass/Vol] 32.9 g/dL Normal 32-36 [facility] Comment on above: Performed By: #### C BC ####[facility] ([facility])[address], [place] [address] VIR MCV (RBC) [Entitic vol] 80 fL Normal 80-100 [facility] Comment on above: Performed By: #### C BC ####[facility] ([facility])[address], [place] [address] VIR MPV Normal [facility] Comment on above: Result Comment: PLAT ELET CLUMPS PRECLUDE COUNT. Performed By: #### C BC ####[facility] ([facility])[address], [place] [address] VIR PLATELET COUNT Normal [facility] Comment on above: Result Comment: ДМИТРИЙ MATE OF PLATELETS, DECREASED. Performed By: #### C BC ####[facility] ([facility])[address], [place] [address] VIR RBC COUNT 5.37 X10E12/L Normal 4.1-5.7 [facility] Comment on above: Performed By: #### C BC ####[facility] ([facility])[address], [place] [address] VIR WBC (Bld) [#/Vol] 10.3 10*3/uL Normal 4-11 [facility] Comment on above: Performed By: #### C BC ####[facility] ([facility])[address], [place] [address] VIR COMPREHENSIVE METABOLIC PANE [place] 11-10-2024 Albumin [Mass/Vol] 3.4 g/dL Normal 3.2-5.3 [facility] Comment on above: Performed By: #### C MP ####[facility] ([facility])[address], [place] [address] VIR ALP [Catalytic activity/Vol] 121 U/L Normal 39-130 [facility] Comment on above: Performed By: #### C MP ####[facility] ([facility])[address], [place] [address] VIR ALT [Catalytic activity/Vol] 23 U/L Normal <=40 [facility] Comment on above: Performed By: #### C MP ####[facility] ([facility])[address], [place] [address] VIR Anion gap [Moles/Vol] 13 mmol/L Normal 5-15 [facility] Comment on above: Performed By: #### C MP ####[facility] ([facility])[address], [place] [address] VIR AST [Catalytic activity/Vol] 35 U/L Normal <=41 [facility] Comment on above: Performed By: #### C MP ####[facility] ([facility])[address], [place] [address] VIR Bilirubin [Mass/Vol] 1.3 mg/dL High 0.3-1.2 [facility] Comment on above: Performed By: #### C MP ####[facility] ([facility])[address], [place] [address] VIR Calcium [Mass/Vol] 9.4 mg/dL Normal 8.5-10.5 [facility] Comment on above: Performed By: #### C MP ####[facility] ([facility])[address], [place] [address] VIR Chloride [Moles/Vol] 110 mmol/L High 98-109 [facility] Comment on above: Performed By: #### C MP ####[facility] ([facility])[address], [place] [address] VIR CO2 [Moles/Vol] 24 mmol/L Normal 22-32 [facility] Comment on above: Performed By: #### C MP ####[facility] ([facility])[address], [place] [address] VIR Creatinine [Mass/Vol] 1.15 mg/dL Normal 0.60-1.30 [facility] Comment on above: Result Comment: METH OD TRACEABLE TO IDMS STANDARD Performed By: #### C MP ####[facility] ([facility])[address], [place] [address] VIR GFR/1.73 sq M.predicted among non-blacks MDRD (S/P/Bld) [Vol rate/Area] 65 mL/min/{1.73_m2} Normal >=60 [facility] Comment on above: Result Comment: Repo rted eGFR is based on theCKD-EPI 2020 equation that doesnot use a race coefficient. Performed By: #### C MP ####[facility] ([facility])[address], [place] [address] VIR Glucose [Mass/Vol] 121 mg/dL High 65-99 [facility] Comment on above: Performed By: #### C MP ####[facility] ([facility])[address], [place] [address] VIR Potassium [Moles/Vol] 3.8 mmol/L Normal 3.5-5.0 [facility] Comment on above: Result Comment: R-Sp ecimen moderately hemolyzed, results increased Performed By: #### C MP ####[facility] ([facility])[address] [facility] [address], [place] [address] VIR Protein [Mass/Vol] 7.6 g/dL Normal 6.0-8.0 [facility] Comment on above: Performed By: #### C MP ####[facility] ([facility])[address], [place] [address] VIR Sodium [Moles/Vol] 147 mmol/L High 134-146 [facility] Comment on above: Performed By: #### C MP ####[facility] ([facility])[address] [address] VIR Urea nitrogen [Mass/Vol] 20 mg/dL Normal 5-27 [facility] Comment on above: Performed By: #### C MP ####[facility] ([facility])[address], [place] [address] VIR FL SWALLOW MOTILITY FUNCTION on 11-10-2024 FL SWALLOW MOTILITY FUNCTION Normal [facility] HEPARIN ANTI XA, UNFRACTIONA TEDon 11-10-2024 ANTI XA UFH 0.29 IU/mL Low 0.30-0.70 [facility] Comment on above: Result Comment: Opti mal time for testing is 6 hrs post dosageThis test is specific for monitoring patients on UFH, and is not recommended for use with other Anti-Xa medications. Performed By: #### U FHXA ####[facility] ([facility])[address], [place] [address] VIR ANTI XA UFH 0.38 IU/mL Normal 0.30-0.70 [facility] Comment on above: Result Comment: Opti mal time for testing is 6 hrs post dosageThis test is specific for monitoring patients on UFH, and is not recommended for use with other Anti-Xa medications. Performed By: #### U FHXA ####[facility] ([facility])[address], [place] [address] VIR ANTI XA UFH <^0.04 Low 0.30-0.70 [facility] Comment on above: Performed By: #### U FHXA ####[facility] ([facility])[address], [place] [address] VIR MAGNESIUMon 11-10-2024 Magnesium [Mass/Vol] 1.9 mg/dL Normal 1.8-2.6 [facility] Comment on above: Performed By: #### M G ####[facility] ([facility])[address] [address] VIR PROTIME AND INRon 11-10-2024 INR 1.2 Normal 0.9-1.2 [facility] Comment on above: Performed By: #### P INR ####[facility] ([facility])[address], [place] [address] VIR PT Coag (PPP) [Time] 13.5 s High 9.8-13.2 [facility] Comment on above: Performed By: #### P INR ####[facility] ([facility])[address], [place] [address] VIR APTTon 11-09-2024 aPTT Coag (Bld) [Time] 30 s Normal 26-37 [facility] Comment on above: Performed By: #### P TT #### [facility] ([facility]) [address] [place] [address] VIR B-TYPE NATRIURETIC PEPTIDEon 11-09-2024 Natriuretic peptide B (Bld) [Mass/Vol] 766 pg/mL High <=100 [facility] Comment on above: Performed By: #### P TT #### [facility] ([facility]) [address] [place] [address] VIR BEDSIDE GLUCOSEon 11-09-2024 Glucose [Mass/Vol] 111 mg/dL High 65-99 [facility] Comment on above: Performed By: #### M G #### [facility] ([facility]) [address] [place] [address] VIR Glucose [Mass/Vol] 145 mg/dL High 65-99 [facility] Comment on above: Performed By: #### P TT #### [facility] ([facility]) [address] [place] [address] VIR Glucose [Mass/Vol] 140 mg/dL High 65-99 [facility] Comment on above: Performed By: #### P TT #### [facility] ([facility]) [address] [place] [address] VIR Glucose [Mass/Vol] 153 mg/dL High 65-99 [facility] Comment on above: Performed By: #### P INR #### [facility] ([facility]) [address] [place] [address] VIR CBC WITH AUTO DIFFERENTIALon 11-09-2024 BASOPHILS ABSOLUTE COUNT (10*3/UL) BY AUTOMATED COUNT 0.0 10*3/uL Normal 0.0-0.2 [facility] Comment on above: Performed By: #### P INR #### [facility] ([facility]) [address] [place] [address] VIR BASOPHILS RELATIVE PERCENT BY AUTOMATED COUNT 0.4 % Normal [facility] Comment on above: Performed By: #### P INR #### [facility]) [address] [facility] [place] [address] VIR CELLAVISION DIFFERENTIAL TYPE AUTOMATED DIFFERENTIAL Normal [facility] Comment on above: Performed By: #### P INR #### [facility]) [address] [place] [address] VIR Eosinophils (Bld) [#/Vol] 0.1 10*3/uL Normal 0.0-0.4 [facility] Comment on above: Performed By: #### P INR #### [facility]) [address] [facility] [place] [address] VIR EOSINOPHILS RELATIVE PERCENT BY AUTOMATED COUNT 1.1 % Normal [facility] Comment on above: Performed By: #### P INR #### [facility]) [address] [place] [address] VIR Erythrocyte distribution width (RBC) [Ratio] 19.1 % High 11.5-15 [facility] Comment on above: Performed By: #### P INR #### [facility] ([facility]) [address] [place] [address] VIR Hematocrit (Bld) [Volume fraction] 38.9 % Low 39-50 [facility] Comment on above: Performed By: #### P INR #### [facility]) [address] [place] [address] VIR Hemoglobin (Bld) [Mass/Vol] 12.7 g/dL Low 13-17 [facility] Comment on above: Performed By: #### P INR #### [facility] ([facility]) [address] [place] [address] VIR LYMPHOCYTES ABSOLUTE COUNT (10*3/UL) BY AUTOMATED COUNT 1.0 10*3/uL Normal 1.0-3.5 [facility] Comment on above: Performed By: #### P INR #### [facility] ([facility]) [address] [place] [address] VIR LYMPHOCYTES RELATIVE PERCENT BY AUTOMATED COUNT 11.0 % Normal [facility] Comment on above: Performed By: #### P INR #### [facility] ([facility]) [address] [place] [address] VIR MCH (RBC) [Entitic mass] 26.2 pg Low 27-34 [facility] Comment on above: Performed By: #### P INR #### [facility]) [address] [place] [address] VIR MCHC (RBC) [Mass/Vol] 32.6 g/dL Normal 32-36 [facility] Comment on above: Performed By: #### P INR #### [facility] ([facility]) [address] [place] [address] VIR MCV (RBC) [Entitic vol] 80 fL Normal 80-100 [facility] Comment on above: Performed By: #### P INR #### [facility]) [address] [place] [address] VIR MONOCYTES ABSOLUTE COUNT (10*3/UL) BY AUTOMATED COUNT 0.8 10*3/uL Normal 0.0-0.9 [facility] Comment on above: Performed By: #### P INR #### [facility] ([facility]) [address] [place] [address] VIR MONOCYTES RELATIVE PERCENT BY AUTOMATED COUNT 8.5 % Normal [facility] Comment on above: Performed By: #### P INR #### [facility]) [address] [place] [address] VIR NEUTROPHILS ABSOLUTE COUNT BY AUTOMATED COUNT 7.0 10*3/uL High 1.5-6.6 [facility] Comment on above: Performed By: #### P INR #### [facility] ([facility]) [address] [place] [address] VIR NEUTROPHILS RELATIVE PERCENT BY AUTOMATED COUNT 79.0 % Normal [facility] Comment on above: Performed By: #### P INR #### [facility] ([facility]) [address] [place] [address] VIR Platelet mean volume (Bld) [Entitic vol] 7.2 fL Normal 7-12 [facility] Comment on above: Performed By: #### P INR #### [facility] ([facility]) [address] [place] [address] VIR Platelets (Bld) [#/Vol] 134 10*3/uL Low 150-450 [facility] Comment on above: Performed By: #### P INR #### [facility] [facility] ([facility]) [address] [place] [address] VIR RBC COUNT 4.84 X10E12/L Normal 4.1-5.7 [facility] Comment on above: Performed By: #### P INR #### [facility] ([facility]) [address] [place] [address] VIR WBC (Bld) [#/Vol] 8.9 10*3/uL Normal 4-11 [facility] Comment on above: Performed By: #### P INR #### [facility] ([facility]) [address] [place] [address] VIR COMPREHENSIVE METABOLIC PANE [place] 11-09-2024 Albumin [Mass/Vol] 2.7 g/dL Low 3.2-5.3 [facility] Comment on above: Performed By: #### P INR #### [facility] ([facility]) [address] [place] [address] VIR ALP [Catalytic activity/Vol] 116 U/L Normal 39-130 [facility] Comment on above: Performed By: #### P INR #### [facility] ([facility]) [address] [place] [address] VIR ALT [Catalytic activity/Vol] 28 U/L Normal <=40 [facility] Comment on above: Performed By: #### P INR #### [facility] [address] [place] [address] VIR Anion gap [Moles/Vol] 10 mmol/L Normal 5-15 [facility] Comment on above: Performed By: #### P INR #### [facility]) [address] [place] [address] VIR AST [Catalytic activity/Vol] 24 U/L Normal <=41 [facility] Comment on above: Performed By: #### P INR #### [facility] [address] [place] [address] VIR Bilirubin [Mass/Vol] 1.5 mg/dL High 0.3-1.2 [facility] Comment on above: Performed By: #### P INR #### [facility] [address] [place] [address] VIR Calcium [Mass/Vol] 8.7 mg/dL Normal 8.5-10.5 [facility] Comment on above: Performed By: #### P INR #### [facility] [address] [facility] [place] [address] VIR Chloride [Moles/Vol] 107 mmol/L Normal 98-109 [facility] Comment on above: Performed By: #### P INR #### [facility] [address] [place] [address] VIR CO2 [Moles/Vol] 27 mmol/L Normal 22-32 [facility] Comment on above: Performed By: #### P INR #### [facility] [address] [place] [address] VIR Creatinine [Mass/Vol] 1.07 mg/dL Normal 0.70-1.20 [facility] Comment on above: Result Comment: METH OD TRACEABLE TO IDMS STANDARD Performed By: #### P INR #### [facility] [address] [place] [address] VIR GFR/1.73 sq M.predicted among non-blacks MDRD (S/P/Bld) [Vol rate/Area] 71 mL/min/{1.73_m2} Normal >=60 [facility] Comment on above: Result Comment: eGFR not reported due to non-numeric value for Creatinine. Reported eGFR is based on the CKD-EPI 2020 equation that does not use a race coefficient. Performed By: #### P INR #### [facility]) [address] [place] [address] VIR Glucose [Mass/Vol] 160 mg/dL High 65-99 [facility] Comment on above: Performed By: #### P INR #### [facility] [address] [place] [address] VIR Potassium [Moles/Vol] 3.9 mmol/L Normal 3.5-5.0 [facility] Comment on above: Performed By: #### P INR #### [facility] [address] [facility] [place] [address] VIR Protein [Mass/Vol] 7.3 g/dL Normal 6.0-8.0 [facility] Comment on above: Performed By: #### P INR #### [facility] [address] [facility] [place] [address] VIR Sodium [Moles/Vol] 144 mmol/L Normal 134-146 [facility] Comment on above: Performed By: #### P INR #### [facility] [address] [place] [address] VIR Urea nitrogen [Mass/Vol] 22 mg/dL Normal 5-27 [facility] Comment on above: Performed By: #### P INR #### [facility] [address] [facility] [place] [address] VIR HEMOGLOBINon 11-09-2024 Hemoglobin (Bld) [Mass/Vol] 12.6 g/dL Low 13-17 [facility] Comment on above: Performed By: #### P TT #### [facility]) [address] [place] [address] VIR LACTATE W/ REFLEXon 11-10-19 25 LACTATE W/REFLEX 2.0 mmol/L Normal 0.4-2.0 [facility] Comment on above: Order Comment: Resul t did not trigger repeat Lactate,re-order if needed. Performed By: #### P TT #### [facility] ([facility]) [address] [place] [address] VIR LACTATE W/REFLEX 2.5 mmol/L High 0.4-2.0 [facility] Comment on above: Performed By: #### P TT #### [facility] ([facility]) [address] [place] [address] VIR LACTATE W/REFLEX 2.4 mmol/L High 0.4-2.0 [facility] Comment on above: Performed By: #### P INR #### [facility] ([facility]) [address] [place] [address] VIR MAGNESIUMon 11-09-2024 Magnesium [Mass/Vol] 2.1 mg/dL Normal 1.8-2.6 [facility] Comment on above: Performed By: #### P INR #### [facility]) [address] [place] [address] VIR PLATELET COUNTon 11-09-2024 Platelet mean volume (Bld) [Entitic vol] 6.9 fL Low 7-12 [facility] Comment on above: Performed By: #### P TT #### [facility] ([facility]) [address] [place] [address] VIR Platelets (Bld) [#/Vol] 132 10*3/uL Low 150-450 [facility] Comment on above: Performed By: #### P TT #### [facility] ([facility]) [address] [place] [address] VIR PROTIME AND INRon 11-09-2024 INR 1.3 High 0.9-1.2 [facility] Comment on above: Performed By: #### P TT #### [facility] ([facility]) [address] [place] [address] VIR PT Coag (PPP) [Time] 14.8 s High 9.8-13.2 [facility] Comment on above: Performed By: #### P TT #### [facility] ([facility]) [address] [place] [address] VIR INR 1.5 High 0.9-1.2 [facility] Comment on above: Performed By: #### P INR #### [facility] ([facility]) [address] [place] [address] VIR PT Coag (PPP) [Time] 17.2 s High 9.8-13.2 [facility] Comment on above: Performed By: #### P INR #### [facility]) [address] [place] [address] VIR XR CHEST 1 VWon 11-09-2024 XR CHEST 1 VW XR CHEST 1 VW XR CHEST 1 VW: 11/09/2024 9:56 AM Clinical: Difficulty breathing. Pneumonia. Upright portable chest is compared with 11/06/2024. Exam limited by low lung volumes. Patient's chin obscures portions of the lung apices. Heart size is unchanged. No pneumothorax. IMPRESSION: * Stable to slight increase in right lower lobe infiltrate with development of a right pleural effusion. * Developing small infiltrate in the left lower lobe. Finalized by Franck Brooks MD on 11/09/2024 10:23 AM Normal [facility] BEDSIDE GLUCOSEon 11-08-2024 Glucose [Mass/Vol] 129 mg/dL High 65-99 [facility] Comment on above: Performed By: #### P INR #### [facility] ([facility]) [address] [facility] [place] [address] VIR Glucose [Mass/Vol] 158 mg/dL High 65-99 [facility] Comment on above: Performed By: #### P INR #### [facility] ([facility]) [address] [place] [address] VIR Glucose [Mass/Vol] 151 mg/dL High 65-99 [facility] Comment on above: Performed By: #### B EDG #### [facility]) [address] [place] [address] VIR Glucose [Mass/Vol] 129 mg/dL High 65-99 [facility] Comment on above: Performed By: #### B EDG #### [facility]) [address] [place] [address] VIR CBC WITH AUTO DIFFERENTIALon 11-08-2024 BASOPHILS ABSOLUTE COUNT (10*3/UL) BY AUTOMATED COUNT 0.0 10*3/uL Normal 0.0-0.2 [facility] Comment on above: Performed By: #### B EDG #### [facility] ([facility]) [address] [place] [address] VIR BASOPHILS RELATIVE PERCENT BY AUTOMATED COUNT 0.4 % Normal [facility] Comment on above: Performed By: #### B EDG #### [facility] ([facility]) [address] [place] [address] VIR CELLAVISION DIFFERENTIAL TYPE AUTOMATED DIFFERENTIAL Normal [facility] Comment on above: Performed By: #### B EDG #### [facility] [address] [place] [address] VIR Eosinophils (Bld) [#/Vol] 0.1 10*3/uL Normal 0.0-0.4 [facility] Comment on above: Performed By: #### B EDG #### [facility] ([facility]) [address] [place] [address] VIR EOSINOPHILS RELATIVE PERCENT BY AUTOMATED COUNT 1.5 % Normal [facility] Comment on above: Performed By: #### B EDG #### [facility]) [address] [place] [address] VIR Erythrocyte distribution width (RBC) [Ratio] 19.4 % High 11.5-15 [facility] Comment on above: Performed By: #### B EDG #### [facility]) [address] [place] [address] VIR Hematocrit (Bld) [Volume fraction] 38.2 % Low 39-50 [facility] Comment on above: Performed By: #### B EDG #### [facility]) [address] [place] [address] VIR Hemoglobin (Bld) [Mass/Vol] 12.7 g/dL Low 13-17 [facility] Comment on above: Performed By: #### B EDG #### [facility]) [address] [place] [address] VIR LYMPHOCYTES ABSOLUTE COUNT (10*3/UL) BY AUTOMATED COUNT 0.9 10*3/uL Low 1.0-3.5 [facility] Comment on above: Performed By: #### B EDG #### [facility]) [address] [place] [address] VIR LYMPHOCYTES RELATIVE PERCENT BY AUTOMATED COUNT 11.1 % Normal [facility] Comment on above: Performed By: #### B EDG #### [facility]) [address] [place] [address] VIR MCH (RBC) [Entitic mass] 26.5 pg Low 27-34 [facility] Comment on above: Performed By: #### B EDG #### [facility]) [address] [place] [address] VIR MCHC (RBC) [Mass/Vol] 33.1 g/dL Normal 32-36 [facility] Comment on above: Performed By: #### B EDG #### [facility]) [address] [place] [address] VIR MCV (RBC) [Entitic vol] 80 fL Normal 80-100 [facility] Comment on above: Performed By: #### B EDG #### [facility]) [address] [place] [address] VIR MONOCYTES ABSOLUTE COUNT (10*3/UL) BY AUTOMATED COUNT 0.6 10*3/uL Normal 0.0-0.9 [facility] Comment on above: Performed By: #### B EDG #### [facility]) [address] [place] [address] VIR MONOCYTES RELATIVE PERCENT BY AUTOMATED COUNT 7.4 % Normal [facility] Comment on above: Performed By: #### B EDG #### [facility]) [address] [place] [address] VIR NEUTROPHILS ABSOLUTE COUNT BY AUTOMATED COUNT 6.8 10*3/uL High 1.5-6.6 [facility] Comment on above: Performed By: #### B EDG #### [facility]) [address] [place] [address] VIR NEUTROPHILS RELATIVE PERCENT BY AUTOMATED COUNT 79.6 % Normal [facility] Comment on above: Performed By: #### B EDG #### [facility] ([facility]) [address] [place] [address] VIR Platelet mean volume (Bld) [Entitic vol] 7.3 fL Normal 7-12 [facility] Comment on above: Performed By: #### B EDG #### [facility] ([facility]) [address] [place] [address] VIR Platelets (Bld) [#/Vol] 120 10*3/uL Low 150-450 [facility] Comment on above: Performed By: #### B EDG #### [facility] ([facility]) [address] [place] [address] VIR RBC COUNT 4.77 X10E12/L Normal 4.1-5.7 [facility] Comment on above: Performed By: #### B EDG #### [facility] ([facility] [address] [place] [address] VIR WBC (Bld) [#/Vol] 8.5 10*3/uL Normal 4-11 [facility] Comment on above: Performed By: #### B EDG #### [facility] ([facility]) [address] [place] [address] VIR COMPREHENSIVE METABOLIC PANE [place] 11-08-2024 Albumin [Mass/Vol] 2.7 g/dL Low 3.2-5.3 [facility] Comment on above: Performed By: #### B EDG #### [facility] ([facility]) [address] [place] [address] VIR ALP [Catalytic activity/Vol] 115 U/L Normal 39-130 [facility] Comment on above: Performed By: #### B EDG #### [facility] ([facility]) [address] [place] [address] VIR ALT [Catalytic activity/Vol] 34 U/L Normal <=40 [facility] Comment on above: Performed By: #### B EDG #### [facility] ([facility]) [address] [place] [address] VIR Anion gap [Moles/Vol] 8 mmol/L Normal 5-15 [facility] Comment on above: Performed By: #### B EDG #### [facility]) [address] [place] [address] VIR AST [Catalytic activity/Vol] 27 U/L Normal <=41 [facility] Comment on above: Performed By: #### B EDG #### [facility] [address] [place] [address] VIR Bilirubin [Mass/Vol] 1.3 mg/dL High 0.3-1.2 [facility] Comment on above: Performed By: #### B EDG #### [facility] [address] [place] [address] VIR Calcium [Mass/Vol] 9.0 mg/dL Normal 8.5-10.5 [facility] Comment on above: Performed By: #### B EDG #### [facility] [address] [place] [address] VIR Chloride [Moles/Vol] 107 mmol/L Normal 98-109 [facility] Comment on above: Performed By: #### B EDG #### [facility]) [address] [place] [address] VIR CO2 [Moles/Vol] 27 mmol/L Normal 22-32 [facility] Comment on above: Performed By: #### B EDG #### [facility] [address] [place] [address] VIR Creatinine [Mass/Vol] 1.11 mg/dL Normal 0.70-1.20 [facility] Comment on above: Result Comment: METH OD TRACEABLE TO IDMS STANDARD Performed By: #### B EDG #### [facility]) [address] [place] [address] VIR GFR/1.73 sq M.predicted among non-blacks MDRD (S/P/Bld) [Vol rate/Area] 68 mL/min/{1.73_m2} Normal >=60 [facility] Comment on above: Result Comment: eGFR not reported due to non-numeric value for Creatinine. Reported eGFR is based on the CKD-EPI 2020 equation that does not use a race coefficient. Performed By: #### B EDG #### [facility] ([facility]) [address] [facility] [place] [address] VIR Glucose [Mass/Vol] 133 mg/dL High 65-99 [facility] Comment on above: Performed By: #### B EDG #### [facility] ([facility] [address] [facility] [place] [address] VIR Potassium [Moles/Vol] 3.8 mmol/L Normal 3.5-5.0 [facility] Comment on above: Performed By: #### B EDG #### [facility] [address] [facility] [place] [address] VIR Protein [Mass/Vol] 7.2 g/dL Normal 6.0-8.0 [facility] Comment on above: Performed By: #### B EDG #### [facility] ([facility]) [address] [facility] [place] [address] VIR Sodium [Moles/Vol] 142 mmol/L Normal 134-146 [facility] Comment on above: Performed By: #### B EDG #### [facility] ([facility]) [address] [facility] [place] [address] VIR Urea nitrogen [Mass/Vol] 25 mg/dL Normal 5-27 [facility] Comment on above: Performed By: #### B EDG #### [facility] [address] [facility] [place] [address] VIR FL SWALLOW MOTILITY FUNCTION on 11-08-2024 FL SWALLOW MOTILITY FUNCTION FL SWALLOW MOTILITY FUNCTION STUDY: Video fluoroscopic swallow study CLINICAL HISTORY: Oral pharyngeal dysphagia, difficulty swallowing COMPARISON: None. FINDINGS: Video fluoroscopic swallow study was performed in conjunction with members of speech pathology. Barium contrast materials of multiple consistencies were administered. Fluoroscopic reference air kerma was 12.1 mGy. Multiple video fluoroscopic images. Zero fluoroscopic spot films. Atypical position/exaggerated kyphosis obscures assessment. Significant residual all ingested consistencies, particularly applesauce, intermittent penetration of this residua. Aspiration of nectar thick barium. Pooling of contrast within the piriform sinus of multiple ingested consistencies Correlate with dedicated speech pathology report for additional details and recommendations. IMPRESSION: 1. Atypical positioning obscures assessment. Substantial residua of all ingested consistencies. Penetration of thin, nectar and honey thick liquids as well as some of the residual from thicker consistencies. Aspiration of nectar thick barium. Weak swallow reflex. Finalized by Zion Pitts MD on 11/08/2024 12:36 PM Normal [facility] MAGNESIUMon 11-08-2024 Magnesium [Mass/Vol] 2.3 mg/dL Normal 1.8-2.6 [facility] Comment on above: Performed By: #### B EDG #### [facility]) [facility] [place] [address] VIR POTASSIUMon 11-08-2024 Potassium [Moles/Vol] 4.3 mmol/L Normal 3.5-5.0 [facility] Comment on above: Performed By: #### P INR #### [facility] ([facility]) [address] [facility] [place] [address] VIR PROCALCITONINon 11-08-2024 PROCALCITONIN 0.62 ng/mL High <0.05 [facility] Comment on above: Order Comment: <0.50 ng/mL - Low risk of severe sepsis and/or septic shock.<2.00 ng/mL - Recommend retesting within 6-24 hours.>2.00 ng/mL - High risk of sepsis and/or septic shock. Performed By: #### B EDG #### [facility] ([facility]) [address] [place] [address] VIR PROTIME AND INRon 11-08-2024 INR 3.7 High 0.9-1.2 [facility] Comment on above: Performed By: #### B EDG #### [facility]) [address] [place] [address] VIR PT Coag (PPP) [Time] 41.9 s High 9.8-13.2 [facility] Comment on above: Performed By: #### B EDG #### [facility] ([facility]) [address] [facility] [place] [address] VIR BEDSIDE GLUCOSEon 11-07-2024 Glucose [Mass/Vol] 98 mg/dL Normal 65-99 [facility] Comment on above: Performed By: #### B EDG #### [facility] ([facility]) [address] [place] [address] VIR Glucose [Mass/Vol] 135 mg/dL High 65-99 [facility] Comment on above: Performed By: #### B EDG #### [facility] ([facility]) [address] [facility] [place] [address] VIR Glucose [Mass/Vol] 137 mg/dL High 65-99 [facility] Comment on above: Performed By: #### B EDG ####[facility] ([facility])[address] [place] [address] VIR Glucose [Mass/Vol] 136 mg/dL High 65-99 [facility] Comment on above: Performed By: #### B EDG ####[facility] ([facility])[address] [place] [address] VIR CBC WITH AUTO DIFFERENTIALon 11-07-2024 BASOPHILS ABSOLUTE COUNT (10*3/UL) BY AUTOMATED COUNT 0.0 10*3/uL Normal 0.0-0.2 [facility] Comment on above: Performed By: #### C BCA ####[facility] ([facility])[address] [place] [address] VIR BASOPHILS RELATIVE PERCENT BY AUTOMATED COUNT 0.1 % Normal [facility] Comment on above: Performed By: #### C BCA ####[facility] ([facility])[address] [place] [address] VIR CELLAVISION DIFFERENTIAL TYPE AUTOMATED DIFFERENTIAL Normal [facility] Comment on above: Performed By: #### C BCA ####[facility] ([facility])[address] [facility] [place] [address] VIR Eosinophils (Bld) [#/Vol] 0.1 10*3/uL Normal 0.0-0.4 [facility] Comment on above: Performed By: #### C BCA ####[facility] ([facility])[address] [facility] [place] [address] VIR EOSINOPHILS RELATIVE PERCENT BY AUTOMATED COUNT 0.5 % Normal [facility] Comment on above: Performed By: #### C BCA ####[facility] ([facility])[address] [facility] [place] [address] VIR Erythrocyte distribution width (RBC) [Ratio] 19.5 % High 11.5-15 [facility] Comment on above: Performed By: #### C BCA ####[facility] ([facility])[address] [facility] [place] [address] VIR Hematocrit (Bld) [Volume fraction] 36.9 % Low 39-50 [facility] Comment on above: Performed By: #### C BCA ####[facility] ([facility])[address] [place] [address] VIR Hemoglobin (Bld) [Mass/Vol] 12.2 g/dL Low 13-17 [facility] Comment on above: Performed By: #### C BCA ####[facility] ([facility])[address] [facility] [place] [address] VIR LYMPHOCYTES ABSOLUTE COUNT (10*3/UL) BY AUTOMATED COUNT 1.0 10*3/uL Normal 1.0-3.5 [facility] Comment on above: Performed By: #### C BCA ####[facility] ([facility])[address] [place] [address] VIR LYMPHOCYTES RELATIVE PERCENT BY AUTOMATED COUNT 9.8 % Normal [facility] Comment on above: Performed By: #### C BCA ####[facility] ([facility])[address] [place] [address] VIR MCH (RBC) [Entitic mass] 26.3 pg Low 27-34 [facility] Comment on above: Performed By: #### C BCA ####[facility] ([facility])[address] [facility] [place] [address] VIR MCHC (RBC) [Mass/Vol] 33.2 g/dL Normal 32-36 [facility] Comment on above: Performed By: #### C BCA ####[facility] ([facility])[address] [place] [address] VIR MCV (RBC) [Entitic vol] 79 fL Low 80-100 [facility] Comment on above: Performed By: #### C BCA ####[facility] ([facility])[address] [place] [address] VIR MONOCYTES ABSOLUTE COUNT (10*3/UL) BY AUTOMATED COUNT 0.9 10*3/uL Normal 0.0-0.9 [facility] Comment on above: Performed By: #### C BCA ####[facility] ([facility])[address] [place] [address] VIR MONOCYTES RELATIVE PERCENT BY AUTOMATED COUNT 8.4 % Normal [facility] Comment on above: Performed By: #### C BCA ####[facility] ([facility])[address] [facility] [place] [address] VIR NEUTROPHILS ABSOLUTE COUNT BY AUTOMATED COUNT 8.7 10*3/uL High 1.5-6.6 [facility] Comment on above: Performed By: #### C BCA ####[facility] ([facility])[address] [facility] [place] [address] VIR NEUTROPHILS RELATIVE PERCENT BY AUTOMATED COUNT 81.2 % Normal [facility] Comment on above: Performed By: #### C BCA ####[facility] ([facility])[address] [place] [address] VIR Platelet mean volume (Bld) [Entitic vol] 7.6 fL Normal 7-12 [facility] Comment on above: Performed By: #### C BCA ####[facility] ([facility])[address] [facility] [place] [address] VIR Platelets (Bld) [#/Vol] 117 10*3/uL Low 150-450 [facility] Comment on above: Performed By: #### C BCA ####[facility] ([facility])[address] [place] [address] VIR RBC COUNT 4.66 X10E12/L Normal 4.1-5.7 [facility] Comment on above: Performed By: #### C BCA ####[facility] ([facility])[address] [facility] [place] [address] VIR WBC (Bld) [#/Vol] 10.7 10*3/uL Normal 4-[address] [facility] Comment on above: Performed By: #### C BCA ####[facility] ([facility])[address] [facility] [place] [address] VIR COMPREHENSIVE METABOLIC PANE [place] 11-07-2024 Albumin [Mass/Vol] 2.7 g/dL Low 3.2-5.3 [facility] Comment on above: Performed By: #### C MP ####[facility] ([facility])[address] [facility] [place] [address] VIR ALP [Catalytic activity/Vol] 112 U/L Normal 39-130 [facility] Comment on above: Performed By: #### C MP ####[facility] ([facility])[address] [place] [address] VIR ALT [Catalytic activity/Vol] 39 U/L Normal <=40 [facility] Comment on above: Performed By: #### C MP ####[facility] ([facility])[address] [facility] [place] [address] VIR Anion gap [Moles/Vol] 10 mmol/L Normal 5-15 [facility] Comment on above: Performed By: #### C MP ####[facility] ([facility])[address] [facility] [place] [address] VIR AST [Catalytic activity/Vol] 34 U/L Normal <=41 [facility] Comment on above: Performed By: #### C MP ####[facility] ([facility])[address] [facility] [place] [address] VIR Bilirubin [Mass/Vol] 1.2 mg/dL Normal 0.3-1.2 [facility] Comment on above: Performed By: #### C MP ####[facility] ([facility])[address] [facility] [place] [address] VIR Calcium [Mass/Vol] 8.9 mg/dL Normal 8.5-10.5 [facility] Comment on above: Performed By: #### C MP ####[facility] ([facility])[address] [place] [address] VIR Chloride [Moles/Vol] 103 mmol/L Normal 98-109 [facility] Comment on above: Performed By: #### C MP ####[facility] ([facility])[address] [place] [address] VIR CO2 [Moles/Vol] 28 mmol/L Normal 22-32 [facility] Comment on above: Performed By: #### C MP ####[facility] ([facility])[address] [place] [address] VIR Creatinine [Mass/Vol] 1.21 mg/dL High 0.70-1.20 [facility] Comment on above: Result Comment: METH OD TRACEABLE TO IDMS STANDARD Performed By: #### C MP ####[facility])[address] [place] [address] VIR GFR/1.73 sq M.predicted among non-blacks MDRD (S/P/Bld) [Vol rate/Area] 61 mL/min/{1.73_m2} Normal >=60 [facility] Comment on above: Result Comment: eGFR not reported due to non-numeric value for Creatinine. Reported eGFR is based on the CKD-EPI 1 equation that does not use a race coefficient. Performed By: #### C MP ####[facility] ([facility])[address] [place] [address] VIR Glucose [Mass/Vol] 146 mg/dL High 65-99 [facility] Comment on above: Performed By: #### C MP ####[facility] ([facility])[address] [place] [address] VIR Potassium [Moles/Vol] 3.1 mmol/L Low 3.5-5.0 [facility] Comment on above: Performed By: #### C MP ####[facility] ([facility])[address] [place] [address] VIR Protein [Mass/Vol] 7.3 g/dL Normal 6.0-8.0 [facility] Comment on above: Performed By: #### C MP ####[facility] ([facility])[address] [place] [address] VIR Sodium [Moles/Vol] 141 mmol/L Normal 134-146 [facility] Comment on above: Performed By: #### C MP ####[facility])[address] [place] [address] VIR Urea nitrogen [Mass/Vol] 35 mg/dL High 5-27 [facility] Comment on above: Performed By: #### C MP ####[facility] ([facility])[address] [place] [address] VIR HEPARIN ANTI XA, UNFRACTIONA TEDon 11-07-2024 ANTI XA UFH 0.29 IU/mL Low 0.30-0.70 [facility] Comment on above: Result Comment: Opti mal time for testing is 6 hrs post dosage This test is specific for monitoring patients on UFH, and is not recommended for use with other Anti-Xa medications. Performed By: #### U FHXA ####[facility])[address] [place] [address] VIR ANTI XA UFH 0.22 IU/mL Low 0.30-0.70 [facility] Comment on above: Result Comment: Opti mal time for testing is 6 hrs post dosage This test is specific for monitoring patients on UFH, and is not recommended for use with other Anti-Xa medications. Performed By: #### U FHXA ####[facility] [place] [address] VIR MAGNESIUMon 11-07-2024 Magnesium [Mass/Vol] 2.5 mg/dL Normal 1.8-2.6 [facility] Comment on above: Performed By: #### M G ####[facility] [place] [address] VIR POTASSIUMon 11-07-2024 Potassium [Moles/Vol] 3.9 mmol/L Normal 3.5-5.0 [facility] Comment on above: Performed By: #### B EDG #### [facility]) [address] [place] [address] [place] [address] VIR PROCALCITONINon 11-07-2024 PROCALCITONIN 1.09 ng/mL High <0.05 [facility] Comment on above: Order Comment: <0.50 ng/mL - Low risk of severe sepsis and/or septic shock.<2.00 ng/mL - Recommend retesting within 6-24 hours.>2.00 ng/mL - High risk of sepsis and/or septic shock. Performed By: #### P SAMARA ####[facility])[address] [place] [address] VIR PROTIME AND INRon 11-07-2024 INR 3.8 High 0.9-1.2 [facility] Comment on above: Performed By: #### P INR ####[address] [address] VIR PT Coag (PPP) [Time] 43.7 s High 9.8-13.2 [facility] Comment on above: Performed By: #### P INR ####[facility])[address] [place] [address] VIR APTTon 11-06-2024 aPTT Coag (Bld) [Time] 46 s High 26-37 [facility] Comment on above: Performed By: #### P TT #### [facility]) [address] [place] [address] VIR BEDSIDE GLUCOSEon 11-06-2024 Glucose [Mass/Vol] 141 mg/dL High 65-99 [facility] Comment on above: Performed By: #### B EDG #### [facility]) [address] [place] [address] VIR Glucose [Mass/Vol] 164 mg/dL High 65-99 [facility] Comment on above: Performed By: #### B EDG #### [facility]) [facility] [place] [address] VIR CBC WITH AUTO DIFFERENTIALon 11-06-2024 BASOPHILS ABSOLUTE COUNT (10*3/UL) BY AUTOMATED COUNT 0.0 10*3/uL Normal 0.0-0.2 [facility] Comment on above: Performed By: #### C BCA #### [facility] ([facility]) [address] [place] [address] VIR BASOPHILS RELATIVE PERCENT BY AUTOMATED COUNT 0.1 % Normal [facility] Comment on above: Performed By: #### C BCA #### [facility] ([facility]) [address] [place] [address] VIR CELLAVISION DIFFERENTIAL TYPE AUTOMATED DIFFERENTIAL Normal [facility] Comment on above: Performed By: #### C BCA #### [facility] ([facility]) [address] [place] [address] VIR Eosinophils (Bld) [#/Vol] 0.1 10*3/uL Normal 0.0-0.4 [facility] Comment on above: Performed By: #### C BCA #### [facility]) [address] [place] [address] VIR EOSINOPHILS RELATIVE PERCENT BY AUTOMATED COUNT 0.4 % Normal [facility] Comment on above: Performed By: #### C BCA #### [facility] ([facility]) [address] [place] [address] VIR Erythrocyte distribution width (RBC) [Ratio] 19.8 % High 11.5-15 [facility] Comment on above: Performed By: #### C BCA #### [facility] ([facility]) [address] [place] [address] VIR Hematocrit (Bld) [Volume fraction] 40.5 % Normal 39-50 [facility] Comment on above: Performed By: #### C BCA #### [facility] ([facility]) [address] [place] [address] VIR Hemoglobin (Bld) [Mass/Vol] 13.4 g/dL Normal 13-17 [facility] Comment on above: Performed By: #### C BCA #### [facility] ([facility]) [address] [place] [address] VIR LYMPHOCYTES ABSOLUTE COUNT (10*3/UL) BY AUTOMATED COUNT 0.7 10*3/uL Low 1.0-3.5 [facility] Comment on above: Performed By: #### C BCA #### [facility] ([facility]) [address] [place] [address] VIR LYMPHOCYTES RELATIVE PERCENT BY AUTOMATED COUNT 5.6 % Normal [facility] Comment on above: Performed By: #### C BCA #### [facility] ([facility]) [address] [place] [address] VIR MCH (RBC) [Entitic mass] 26.1 pg Low 27-34 [facility] Comment on above: Performed By: #### C BCA #### [facility] ([facility]) [address] [place] [address] VIR MCHC (RBC) [Mass/Vol] 33.0 g/dL Normal 32-36 [facility] Comment on above: Performed By: #### C BCA #### [facility] ([facility]) [address] [place] [address] VIR MCV (RBC) [Entitic vol] 79 fL Low 80-100 [facility] Comment on above: Performed By: #### C BCA #### [facility] ([facility]) [address] [place] [address] VIR MONOCYTES ABSOLUTE COUNT (10*3/UL) BY AUTOMATED COUNT 1.0 10*3/uL High 0.0-0.9 [facility] Comment on above: Performed By: #### C BCA #### [facility]) [address] [place] [address] VIR MONOCYTES RELATIVE PERCENT BY AUTOMATED COUNT 7.9 % Normal [facility] Comment on above: Performed By: #### C BCA #### [facility] ([facility]) [address] [place] [address] VIR NEUTROPHILS ABSOLUTE COUNT BY AUTOMATED COUNT 11.4 10*3/uL High 1.5-6.6 [facility] Comment on above: Performed By: #### C BCA #### [facility]) [address] [place] [address] VIR NEUTROPHILS RELATIVE PERCENT BY AUTOMATED COUNT 86.0 % Normal [facility] Comment on above: Performed By: #### C BCA #### [facility] ([facility]) [address] [place] [address] VIR Platelet mean volume (Bld) [Entitic vol] 7.4 fL Normal 7-12 [facility] Comment on above: Performed By: #### C BCA #### [facility] ([facility]) [address] [place] [address] VIR Platelets (Bld) [#/Vol] 129 10*3/uL Low 150-450 [facility] Comment on above: Performed By: #### C BCA #### [facility] ([facility]) [address] [place] [address] VIR RBC COUNT 5.12 X10E12/L Normal 4.1-5.7 [facility] Comment on above: Performed By: #### C BCA #### [facility] ([facility]) [address] [place] [address] VIR WBC (Bld) [#/Vol] 13.2 10*3/uL High 4-[address] [facility] Comment on above: Performed By: #### C BCA #### [facility] ([facility]) [address] [place] [address] VIR COMPREHENSIVE METABOLIC PANE [place] 11-06-2024 Albumin [Mass/Vol] 2.8 g/dL Low 3.2-5.3 [facility] Comment on above: Performed By: #### C MP #### [facility] ([facility]) [address] [place] [address] VIR ALP [Catalytic activity/Vol] 114 U/L Normal 39-130 [facility] Comment on above: Performed By: #### C MP #### [facility] ([facility]) [address] [place] [address] VIR ALT [Catalytic activity/Vol] 44 U/L High <=40 [facility] Comment on above: Performed By: #### C MP #### [facility] ([facility]) [address] [place] [address] VIR Anion gap [Moles/Vol] 13 mmol/L Normal 5-15 [facility] Comment on above: Performed By: #### C MP #### [facility] ([facility]) [address] [place] [address] VIR AST [Catalytic activity/Vol] 41 U/L Normal <=41 [facility] Comment on above: Performed By: #### C MP #### [facility] ([facility]) [address] [place] [address] VIR Bilirubin [Mass/Vol] 1.3 mg/dL High 0.3-1.2 [facility] Comment on above: Performed By: #### C MP #### [facility]) [address] [place] [address] VIR Calcium [Mass/Vol] 8.7 mg/dL Normal 8.5-10.5 [facility] Comment on above: Performed By: #### C MP #### [facility]) [address] [place] [address] VIR Chloride [Moles/Vol] 102 mmol/L Normal 98-109 [facility] Comment on above: Performed By: #### C MP #### [facility]) [address] [place] [address] VIR CO2 [Moles/Vol] 22 mmol/L Normal 22-32 [facility] Comment on above: Performed By: #### C MP #### [facility]) [address] [place] [address] VIR Creatinine [Mass/Vol] 1.40 mg/dL High 0.70-1.20 [facility] Comment on above: Result Comment: METH OD TRACEABLE TO IDMS STANDARD Performed By: #### C MP #### [facility]) [address] [place] [address] VIR GFR/1.73 sq M.predicted among non-blacks MDRD (S/P/Bld) [Vol rate/Area] 51 mL/min/{1.73_m2} Low >=60 [facility] Comment on above: Result Comment: eGFR not reported due to non-numeric value for Creatinine. Reported eGFR is based on the CKD-EPI 2020 equation that does not use a race coefficient. Performed By: #### C MP #### [facility]) [address] [place] [address] VIR Glucose [Mass/Vol] 139 mg/dL High 65-99 [facility] Comment on above: Performed By: #### C MP #### [facility] ([facility]) [address] [facility] [place] [address] VIR Potassium [Moles/Vol] 3.5 mmol/L Normal 3.5-5.0 [facility] Comment on above: Performed By: #### C MP #### [facility]) [address] [facility] [place] [address] VIR Protein [Mass/Vol] 7.5 g/dL Normal 6.0-8.0 [facility] Comment on above: Performed By: #### C MP #### [facility]) [address] [place] [address] VIR Sodium [Moles/Vol] 137 mmol/L Normal 134-146 [facility] Comment on above: Performed By: #### C MP #### [facility] ([facility]) [address] [facility] [place] [address] VIR Urea nitrogen [Mass/Vol] 40 mg/dL High 5-27 [facility] Comment on above: Performed By: #### C MP #### [facility]) [address] [facility] [place] [address] VIR LOWER RESP CULTURE SPUTUM CU LTURE INC GRAM STAINon 11-06-2024 LOWER RESP CULTURE SPUTUM CULTURE INC GRAM STAIN CULTURE RESULTS NORMAL ORAL ASA GRAM STAIN 1 to 9 White Blood Cells/LPF 1 to 9 Squamous Epithelial Cells/LPF 0 Ciliated Epithelial Cells/LPF No organisms seen Normal [facility] Comment on above: Order Comment: RT ma y induce as needed to obtain specimen Performed By: #### L RT #### [facility] ([facility]) [address] [place] [address] VIR MAGNESIUMon 11-06-2024 Magnesium [Mass/Vol] 2.5 mg/dL Normal 1.8-2.6 [facility] Comment on above: Performed By: #### M G #### [facility]) [address] [place] [address] VIR PROCALCITONINon 11-06-2024 PROCALCITONIN 1.73 ng/mL High <0.05 [facility] Comment on above: Order Comment: <0.50 ng/mL - Low risk of severe sepsis and/or septic shock. <2.00 ng/mL - Recommend retesting within 6-24 hours. >2.00 ng/mL - High risk of sepsis and/or septic shock. Performed By: #### P SAMARA #### [facility] ([facility]) [address] [facility] [place] [address] VIR PROTIME AND INRon 11-06-2024 INR 3.9 High 0.9-1.2 [facility] Comment on above: Performed By: #### P INR #### [facility]) [address] [facility] [place] [address] VIR PT Coag (PPP) [Time] 44.9 s High 9.8-13.2 [facility] Comment on above: Performed By: #### P INR #### [facility] ([facility]) [address] [facility] [place] [address] VIR URINE CULTUREon 11-06-2024 Bacteria identified Cx Nom (U) CULTURE RESULTS <10,000 ORGANISMS/mL NORMAL URO GENITAL ASA Normal [facility] Comment on above: Performed By: #### U C ####[facility] ([facility])[address] [facility] [address], [place] [address] VIR XR CHEST 1 VWon 11-06-2024 XR CHEST 1 VW XR CHEST 1 VW Single view chest History:pneumonia Difficulty breathing, shortness of breath Comparison: 09/14/2024 Findings: Single portable view of the chest. Stable cardiomediastinal silhouette. There is right lower lung opacity concerning for pneumonia. Lung apices are obscured. Impression: Right lower lung opacity concerning for pneumonia. Finalized by Fabián Perales MD on 11/06/2024 1:43 PM Normal [facility] APTTon 11-05-2024 aPTT Coag (Bld) [Time] 33 s Normal 26-37 [facility] Comment on above: Performed By: #### P TT ####[facility] ([facility])[address] [place] [address] [place] [address] VIR B-TYPE NATRIURETIC PEPTIDEon 11-05-2024 Natriuretic peptide B (Bld) [Mass/Vol] 606 pg/mL High <=100 [facility] Comment on above: Performed By: #### B DIRECTOR OF MUSIC ####[facility] ([facility])[address] [place] [address] VIR BLOOD CULTUREon 11-05-2024 Bacteria identified Cx Nom (Bld) CULTURE RESULTS NO GROWTH 5 DAYS Normal [facility] Comment on above: Order Comment: *SIRS Criteria: (must display 2 without other explanation)-Temperature < 36 or >38-Pulse >90-Resp rate >20-WBC less than 4K or greater than 12KRepeat blood cultures not needed:-To document that a blood culture is a contaminant when 1 of 2 bottles is positive for a common contaminant (already listed in [facility] with the culture result)-To document clearance of gram negative bacteremia in patients with suspected urinary source who are improving Performed By: #### B C ####[facility] ([facility])[address] [address] VIR Bacteria identified Cx Nom (Bld) CULTURE RESULTS NO GROWTH 5 DAYS Normal [facility] Comment on above: Order Comment: *SIRS Criteria: (must display 2 without other explanation)-Temperature < 36 or >38-Pulse >90-Resp rate >20-WBC less than 4K or greater than 12KRepeat blood cultures not needed:-To document that a blood culture is a contaminant when 1 of 2 bottles is positive for a common contaminant (already listed in [facility] with the culture result)-To document clearance of gram negative bacteremia in patients with suspected urinary source who are improving Performed By: #### B C ####[facility] ([facility])[address] [facility] [address], [place] [address] VIR C-REACTIVE PROTEINon 025 C REACTIVE PROTEIN 10.1 mg/dL High <=0.7 [facility] Comment on above: Performed By: #### C RP ####[facility] ([address] [address] VIR CBC WITH AUTO DIFFERENTIALon 11-05-2024 BASOPHILS ABSOLUTE COUNT (10*3/UL) BY AUTOMATED COUNT 0.0 10*3/uL Normal 0.0-0.2 [facility] Comment on above: Result Comment: This is an appended report. These results have been appended to a previously preliminary verified report. Performed By: #### C BCA ####[facility] ([address] [address] VIR BASOPHILS RELATIVE PERCENT BY AUTOMATED COUNT 0.4 % Normal [facility] Comment on above: Result Comment: This is an appended report. These results have been appended to a previously preliminary verified report. Performed By: #### C BCA ####[address] [address] VIR CELLAVISION DIFFERENTIAL TYPE AUTOMATED DIFFERENTIAL Normal [facility] Comment on above: Result Comment: This is an appended report. These results have been appended to a previously preliminary verified report. Performed By: #### C BCA ####[address] [address] VIR Eosinophils (Bld) [#/Vol] 0.0 10*3/uL Normal 0.0-0.4 [facility] Comment on above: Result Comment: This is an appended report. These results have been appended to a previously preliminary verified report. Performed By: #### C BCA ####[facility] ([address] [address] VIR EOSINOPHILS RELATIVE PERCENT BY AUTOMATED COUNT 0.1 % Normal [facility] Comment on above: Result Comment: This is an appended report. These results have been appended to a previously preliminary verified report. Performed By: #### C BCA ####[facility] ([address] [place] [address] VIR Erythrocyte distribution width (RBC) [Ratio] 19.8 % High 11.5-15 [facility] Comment on above: Performed By: #### C BCA ####[facility] ([address] [address] VIR Hematocrit (Bld) [Volume fraction] 42.9 % Normal 39-50 [facility] Comment on above: Performed By: #### C BCA ####[facility] ([address] [address] VIR Hemoglobin (Bld) [Mass/Vol] 14.5 g/dL Normal 13-17 [facility] Comment on above: Performed By: #### C BCA ####[facility] ([address] [address] VIR LYMPHOCYTES ABSOLUTE COUNT (10*3/UL) BY AUTOMATED COUNT 0.6 10*3/uL Low 1.0-3.5 [facility] Comment on above: Result Comment: This is an appended report. These results have been appended to a previously preliminary verified report. Performed By: #### C BCA ####[facility] ([address] [address] VIR LYMPHOCYTES RELATIVE PERCENT BY AUTOMATED COUNT 5.2 % Normal [facility] Comment on above: Result Comment: This is an appended report. These results have been appended to a previously preliminary verified report. Performed By: #### C BCA ####[facility] ([address] [address] VIR MCH (RBC) [Entitic mass] 26.7 pg Low 27-34 [facility] Comment on above: Performed By: #### C BCA ####[place] [facility] ([address] [address] VIR MCHC (RBC) [Mass/Vol] 33.8 g/dL Normal 32-36 [facility] Comment on above: Performed By: #### C BCA ####[facility] ([address] [address] VIR MCV (RBC) [Entitic vol] 79 fL Low 80-100 [facility] Comment on above: Performed By: #### C BCA ####[place] ([address] [address] VIR MONOCYTES ABSOLUTE COUNT (10*3/UL) BY AUTOMATED COUNT 0.6 10*3/uL Normal 0.0-0.9 [facility] Comment on above: Result Comment: This is an appended report. These results have been appended to a previously preliminary verified report. Performed By: #### C BCA ####[facility] ([address] [address] VIR MONOCYTES RELATIVE PERCENT BY AUTOMATED COUNT 5.1 % Normal [facility] Comment on above: Result Comment: This is an appended report. These results have been appended to a previously preliminary verified report. Performed By: #### C BCA ####[facility] ([address] [address] VIR NEUTROPHILS ABSOLUTE COUNT BY AUTOMATED COUNT 10.7 10*3/uL High 1.5-6.6 [facility] Comment on above: Result Comment: This is an appended report. These results have been appended to a previously preliminary verified report. Performed By: #### C BCA ####[facility] ([address] [address] VIR NEUTROPHILS RELATIVE PERCENT BY AUTOMATED COUNT 89.2 % Normal [facility] Comment on above: Result Comment: This is an appended report. These results have been appended to a previously preliminary verified report. Performed By: #### C BCA ####[facility] ([address] [address] VIR Platelet mean volume (Bld) [Entitic vol] 8.0 fL Normal 7-12 [facility] Comment on above: Performed By: #### C BCA ####[facility] ([place] [address] [place] [address] VIR Platelets (Bld) [#/Vol] 151 10*3/uL Normal 150-450 [facility] Comment on above: Performed By: #### C BCA ####[facility] ([address] [place] [address] VIR RBC COUNT 5.43 X10E12/L Normal 4.1-5.7 [facility] Comment on above: Performed By: #### C BCA ####[facility] ([address] [place] [address] VIR WBC (Bld) [#/Vol] 12.0 10*3/uL High 4-11 [facility] Comment on above: Performed By: #### C BCA ####[facility] ([address] [place] [address] VIR CK TOTALon 11-05-2024 CPK 48 U/L Normal 24-195 [facility] Comment on above: Performed By: #### C PK ####[facility] ([address] [place] [address] VIR COMPREHENSIVE METABOLIC PANE [place] 11-05-2024 Albumin [Mass/Vol] 3.5 g/dL Normal 3.2-5.3 [facility] Comment on above: Performed By: #### C MP ####[facility] ([address] [place] [address] VIR ALP [Catalytic activity/Vol] 167 U/L High 39-130 [facility] Comment on above: Performed By: #### C MP ####[facility] ([address] [place] [address] VIR ALT [Catalytic activity/Vol] 55 U/L High <=40 [facility] Comment on above: Performed By: #### C MP ####[facility] ([address] [place] [address] VIR Anion gap [Moles/Vol] 13 mmol/L Normal 5-15 [facility] Comment on above: Performed By: #### C MP ####[facility] ([address] [place] [address] VIR AST [Catalytic activity/Vol] 44 U/L High <=41 [facility] Comment on above: Performed By: #### C MP ####[facility] ([address] [place] [address] VIR Bilirubin [Mass/Vol] 1.8 mg/dL High 0.3-1.2 [facility] Comment on above: Performed By: #### C MP ####[facility] ([address] [place] [address] VIR Calcium [Mass/Vol] 9.4 mg/dL Normal 8.5-10.5 [facility] Comment on above: Performed By: #### C MP ####[facility] ([address] [place] [address] VIR Chloride [Moles/Vol] 100 mmol/L Normal 98-109 [facility] Comment on above: Performed By: #### C MP ####[facility] ([address] [place] [address] VIR CO2 [Moles/Vol] 23 mmol/L Normal 22-32 [facility] Comment on above: Performed By: #### C MP ####[facility] ([address] [place] [address] VIR Creatinine [Mass/Vol] 1.79 mg/dL High 0.70-1.20 [facility] Comment on above: Result Comment: METH OD TRACEABLE TO IDMS STANDARD Performed By: #### C MP ####[facility] ([address] [place] [address] VIR GFR/1.73 sq M.predicted among non-blacks MDRD (S/P/Bld) [Vol rate/Area] 38 mL/min/{1.73_m2} Low >=60 [facility] Comment on above: Result Comment: eGFR not reported due to non-numeric value for Creatinine.Reported eGFR is based on theCKD-EPI 2020 equation that doesnot use a race coefficient. Performed By: #### C MP ####[facility] ([address] [place] [address] VIR Glucose [Mass/Vol] 188 mg/dL High 65-99 [facility] Comment on above: Performed By: #### C MP ####[facility] ([address] [place] [address] VIR Potassium [Moles/Vol] 4.0 mmol/L Normal 3.5-5.0 [facility] Comment on above: Performed By: #### C MP ####[facility] ([address] [address] VIR Protein [Mass/Vol] 8.5 g/dL High 6.0-8.0 [facility] Comment on above: Performed By: #### C MP ####[facility] ([address] [place] [address] VIR Sodium [Moles/Vol] 136 mmol/L Normal 134-146 [facility] Comment on above: Performed By: #### C MP ####[facility] ([address] [place] [address] VIR Urea nitrogen [Mass/Vol] 50 mg/dL High 5-27 [facility] Comment on above: Performed By: #### C MP ####[facility] ([address] [place] [address] ABDOMEN AND PELVIS W CONT on 11-05-2024 CT ABDOMEN AND PELVIS W CONT Normal [facility] CT BRAIN WO CONTon CT BRAIN WO CONT Normal [facility] CT CERVICAL SPINE WO CONTon 11-05-2024 CT CERVICAL SPINE WO CONT Normal [facility] CT CHEST W CONTon 11-05-2024 CT CHEST W CONT Normal [facility] ERYTHROCYTE SEDIMENTATION RA TE (ESR)on 11-05-2024 ESR, ERYTHROCYTE SEDIMENTATION RATE 104 mm/h High 0-20 [facility] Comment on above: Performed By: #### E SR ####[facility] ([facility])[address] [facility] [address], [place] [address] VIR LACTATE W/ REFLEXon 11-06-19 25 LACTATE W/REFLEX 1.8 mmol/L Normal 0.4-2.0 [facility] Comment on above: Order Comment: Resul t did not trigger repeat Lactate,re-order if needed. Performed By: #### L ACTS ####[facility] ([address] [place] [address] VIR LACTATE W/REFLEX 2.7 mmol/L High 0.4-2.0 [facility] Comment on above: Performed By: #### L ACTS ####[facility] ([address] [place] [address] VIR LACTATE W/REFLEX 2.1 mmol/L High 0.4-2.0 [facility] Comment on above: Performed By: #### L ACTS ####[facility] ([address] [place] [address] VIR LACTATE W/REFLEX 2.3 mmol/L High 0.4-2.0 [facility] Comment on above: Performed By: #### L ACTS ####[facility] ([address] [place] [address] VIR LACTATE W/REFLEX 3.2 mmol/L High 0.4-2.0 [facility] Comment on above: Performed By: #### L ACTS ####[facility] ([address] [place] [address] VIR MAGNESIUMon 11-05-2024 Magnesium [Mass/Vol] 2.3 mg/dL Normal 1.8-2.6 [facility] Comment on above: Performed By: #### M G ####[facility] ([address] [address] VIR MR CERVICAL SPINE W WO CONTo n 11-05-2024 MR CERVICAL SPINE W WO CONT Normal [facility] MR LUMBAR SPINE WO CONTon MR LUMBAR SPINE WO CONT Normal [facility] MR THORACIC SPINE WO CONTon 11-05-2024 MR THORACIC SPINE WO CONT Normal [facility] MYOGLOBIN, SERUMon SERUM MYOGLOBIN 68.7 ng/mL Normal 17.4-105.7 [facility] Comment on above: Performed By: #### M YOG ####[facility] ([address] [address] VIR POCT NURSING URINE MACROSCOP IC UAon 11-05-2024 BILIRUBIN KRISSY Negative Normal Negative [facility] Comment on above: Performed By: #### N UM ####[facility] ([address] [place] [address] VIR BLOOD/HGB KRISSY Negative Normal Negative [facility] Comment on above: Performed By: #### N UM ####[facility] ([address] [address] VIR GLUCOSE KRISSY 500 mg/dL Abnormal Negative [facility] Comment on above: Performed By: #### N UM ####[facility] ([address] [place] [address] VIR KETONES KRISSY Negative Normal Negative [facility] Comment on above: Performed By: #### N UM ####[facility] ([address] [place] [address] VIR LEUKOCYTE ESTERASE KRISSY Negative Normal Negative [facility] Comment on above: Performed By: #### N UM ####[facility] ([address] [place] [address] VIR NITRITE KRISSY Negative Normal Negative [facility] Comment on above: Performed By: #### N UM ####[facility] ([address] [place] [address] VIR PH KRISSY 6.0 Normal 5.0, 6.0, 6.5, 7.0, 7.5, 8.0, 8.5, 5.5 [facility] Comment on above: Performed By: #### N UM ####[address] [place] [address] VIR PROTEIN KRISSY 30 mg/dL Abnormal Negative [facility] Comment on above: Performed By: #### N UM ####[address] [place] [address] VIR SPECIFIC GRAVITY KRISSY 1.010 Normal 1.010, 1.015, 1.020, 1.025 [facility] Comment on above: Performed By: #### N UM ####[address] [place] [address] VIR UROBILINOGEN KRISSY 0.2 E.U./dL Normal [facility] Comment on above: Performed By: #### N UM ####[address] [place] [address] VIR PROTIME AND INRon 11-05-2024 INR 3.0 High 0.9-1.2 [facility] Comment on above: Performed By: #### P INR ####[place] [address] [facility] [place] [address] VIR PT Coag (PPP) [Time] 35.0 s High 9.8-13.2 [facility] Comment on above: Performed By: #### P INR ####[facility] ([facility])[address] [place] [address] VIR SARS/FLU A+B/RSV BY NAAT/MOL ECULAR (M4RT COLLECTION TUBE)on 11-05-2024 SARS/FLU A+B/RSV BY NAAT/MOLECULAR (M4RT COLLECTION TUBE) FLU A PCR Negative FLU B PCR Negative RSV BY PCR Negative SARS COV 2 BY PCR Not Detected Normal Not Detected [facility] Comment on above: Order Comment: The [employer] Xpress SARS-CoV-2/Flu/RSV Plus test is a rapid, [...] operators who are performing tests using either [employer] DX or [employer] systems and is limited to laboratories that [...] inhibition unable to be resolved with specimen repeat.Fact Sheet for Healthcare Providers:https://www.fda.gov/media/073775/downloadFact Sheet for Patients:https://www.fda.gov/media/008109/download Performed By: #### C OVFLR ####[facility] ([address] [place] [address] VIR THYROID PROFILE INCLUDES TSH FT4on 11-05-2024 Free T4 [Mass/Vol] 1.31 ng/dL Normal 0.61-1.60 [facility] Comment on above: Performed By: #### T HYR ####[address] [address] VIR TSH 1.02 uIU/mL Normal 0.49-4.67 [facility] Comment on above: Performed By: #### T HYR ####[facility] ([address] [address] VIR TROP I, HIGH SENSITIVITY 1 H OURon 11-05-2024 TROPONIN I, HIGH SENSITIVITY 28 ng/L High <21 [facility] Comment on above: Order Comment: Stuart tions of hs-Troponin may be due to causesother than myocardial ischemia.Recommend serial hs-Troponin testing be performed.For the initial evaluation and management of chestpain patients, refer to the algorithms linked below.Emergency Patient:https://www.[employer]/dv/dl.aspx?v=[email or web address]&dh=1cc5a&u=[email or web address] 5015&uh=acaeaInpatient:https://www.[employer]dv/dl.aspx?r=21728 55&dh=f72e7&w=38188&uh=acaea Performed By: #### T NIHS1 ####[facility] ([address] [address] VIR TROPONIN I, HIGH SENSITIVITY 0 HOURon 11-05-2024 TROPONIN I, HIGH SENSITIVITY 24 ng/L High <21 [facility] Comment on above: Performed By: #### T NIHS0 ####[facility] ([facility])[address] [place] [address].[place] [address] VIR Protime & INRon 11-04-2024 INR Coag (PPP) [Relative time] 2.4 {INR} Abnormal 0.9 - 1.1 [facility] Interpretation and review of laboratory results Abnormal [facility] Protime & INRon 10-28-2024 INR Coag (PPP) [Relative time] 2.2 {INR} Abnormal 0.9 - 1.1 [facility] Interpretation and review of laboratory results Abnormal [facility] Protime & INRon 10-21-2024 INR Coag (PPP) [Relative time] 2.2 {INR} Abnormal 0.9 - 1.1 [facility] Interpretation and review of laboratory results Abnormal [facility] CBC W Auto Differential pane l (Bld)on 10-16-2024 Basophils (Bld) [#/Vol] 27 10*3/uL [facility] Basophils/100 WBC (Bld) 0.3 % [facility] Eosinophils (Bld) [#/Vol] 90 10*3/uL [facility] Eosinophils/100 WBC (Bld) 1 % [facility] Erythrocyte distribution width (RBC) [Ratio] 16 % High 11.0 - 15.0 % [facility] Hematocrit (Bld) [Volume fraction] 40.7 % 38.5 - 50.0 % [facility] Hemoglobin (Bld) [Mass/Vol] 12.7 g/dL Low 13.2 - 17.1 g/dL [facility] Lymphocytes (Bld) [#/Vol] 1458 10*3/uL [facility] Lymphocytes/100 WBC (Bld) 16.2 % [facility] MCH (RBC) [Entitic mass] 25.4 pg Low 27.0 - 33.0 pg [facility] MCHC (RBC) [Mass/Vol] 31.2 g/dL Low 32.0 - 36.0 g/dL [facility] Comment on above: For adults, a slight decrease in the calculated MCHC value (in the range of 30 to 32 g/dL) is most likely not clinically significant; however, it should be interpreted with caution in correlation with other red cell parameters and the patient's clinical condition. MCV (RBC) [Entitic vol] 81.4 fL 80.0 - 100.0 fL [facility] Monocytes (Bld) [#/Vol] 531 10*3/uL [facility] Monocytes/100 WBC (Bld) 5.9 % [facility] Neutrophils (Bld) [#/Vol] 6894 10*3/uL [facility] Neutrophils/100 WBC (Bld) 76.6 % [facility] Platelet mean volume (Bld) [Entitic vol] 9.8 fL 7.5 - 12.5 fL [facility] Platelets (Bld) [#/Vol] 174 10*3/uL [facility] RBC (Bld) [#/Vol] 5 10*6/uL [facility] WBC (Bld) [#/Vol] 9 10*3/uL [facility] Laboratory - Chemistry and C hemistry - challengeon 10-16-2024 Albumin [Mass/Vol] 3.5 g/dL Low 3.6 - 5.1 g/dL [facility] Albumin/Globulin [Mass ratio] 0.8 {ratio} Low [facility] ALP [Catalytic activity/Vol] 193 U/L High 35 - 144 U/L [facility] ALT [Catalytic activity/Vol] 43 U/L 9 - 46 U/L [facility] AST [Catalytic activity/Vol] 31 U/L 10 - 35 U/L [facility] Bilirubin [Mass/Vol] 0.7 mg/dL 0.2 - 1.2 mg/dL [facility] Calcium [Mass/Vol] 8.8 mg/dL 8.6 - 10. 3 mg/dL [facility] Chloride [Moles/Vol] 103 mmol/L 98 - 110 mmol/L [facility] CO2 [Moles/Vol] 26 mmol/L 20 - 32 mmol/L [facility] Creatinine [Mass/Vol] 1.5 mg/dL High 0.70 - 1.28 mg/dL [facility] GFR/1.73 sq M.predicted among non-blacks MDRD (S/P/Bld) [Vol rate/Area] 47 mL/min/{1.73_m2} Low > OR = 60 mL/min/1.73 m2 [facility] Globulin (S) [Mass/Vol] 4.4 g/dL High [facility] Glucose [Mass/Vol] 176 mg/dL High 65 - 99 mg/dL [facility] Comment on above: Fasting reference interval For someone without known diabetes, a glucose value >125 mg/dL indicates that they may have diabetes and this should be confirmed with a follow-up test. Potassium [Moles/Vol] 3.8 mmol/L 3.5 - 5.3 mmol/L [facility] Protein [Mass/Vol] 7.9 g/dL 6.1 - 8.1 g/dL [facility] Sodium [Moles/Vol] 141 mmol/L 135 - 146 mmol/L [facility] Urea nitrogen [Mass/Vol] 36 mg/dL High 7 - 25 mg/dL [facility] Urea nitrogen/Creatinine [Mass ratio] 24 mg/mg High [facility] Lipid 1996 panelon 5 Cholesterol [Mass/Vol] 110 mg/dL [facility] - 200 mg/dL [facility] Cholesterol in HDL [Mass/Vol] 33 mg/dL Low > OR = 40 [facility] Cholesterol in LDL [Mass/Vol] 56 mg/dL mg/dL (calc) [facility] Comment on above: Reference range: <10 0 Desirable range <100 mg/dL for primary prevention; <70 mg/dL for patients with CHD or diabetic patients with > or = 2 CHD risk factors. LDL-C is now calculated using the Bebeto-Dalia calculation, which is a validated novel method providing better accuracy than the Friedewald equation in the estimation of LDL-C. Bebeto JOHNSTON et al. JAYDE. 2013;310(19): 1248-1906 (http://education.[employer]/faq/XXM155) Cholesterol non HDL [Mass/Vol] 77 mg/dL [facility] Comment on above: For patients with di abetes plus 1 major ASCVD risk factor, treating to a non-HDL-C goal of <100 mg/dL (LDL-C of <70 mg/dL) is considered a therapeutic option. Cholesterol.total/C holesterol in HDL [Mass ratio] 3.3 {ratio} [facility] Triglyceride [Mass/Vol] 129 mg/dL NINF - 150 mg/dL [facility] No Panel Informationon 10-16 Interpretation and review of laboratory results Abnormal [facility] MULTIPLE COLLECTION TIMES FOR SAME TEST TYPE. [email or web address] Organizat ion Information Site ID: QPT Name: [employer] [facility] Address: [address] [place] [address], [address] [place] [id number] Director: Grupo Singer MD [facility] XR CHEST 2 VIEWSon XR CHEST 2 VIEWS Exam: XR CHEST 2 VIE WS Reason for exam: Bilateral pleural effusions and [...] signed and approved by the interpreting radiologist. Normal Not Available XR Chest 2 Viewson Exam: XR CHEST 2 VIE WS Reason for exam: Bilateral pleural effusions and [...] signed and approved by the interpreting radiologist. Lenin Herman MD - 10/15/2024 Exam: XR CHEST 2 [...] signed and approved by the interpreting radiologist. [facility] [employer] Radiology Study observation (narrative) [facility] [employer] XR Chest 2 ViewsOrdered By: Lenin Ulloa on 10-15-2024 [facility] [employer] Work Phone: Protime & INRon 10-14-2024 INR Coag (PPP) [Relative time] 2.3 {INR} Abnormal 0.9 - 1.1 [facility] Interpretation and review of laboratory results Abnormal [facility] Protime [facility] INRon 10-11-2024 INR Coag (PPP) [Relative time] 2.5 {INR} Abnormal 0.9 - 1.1 [facility] Interpretation and review of laboratory results Abnormal [facility] Protime [facility] INRon 10-06-2024 INR Coag (PPP) [Relative time] 2.4 {INR} Abnormal 0.9 - 1.1 [facility] Interpretation and review of laboratory results Abnormal [facility] Protime [facility] INRon 10-04-2024 INR Coag (PPP) [Relative time] 4.7 {INR} Abnormal 0.9 - 1.1 [facility] Interpretation and review of laboratory results Abnormal [facility] Protime [facility] INRon 09-30-2024 INR Coag (PPP) [Relative time] 2.8 {INR} Abnormal 0.9 - 1.1 [facility] Interpretation and review of laboratory results Abnormal [facility] Protime [facility] INRon 09-28-2024 INR Coag (PPP) [Relative time] 2.8 {INR} Abnormal 0.9 - 1.1 [facility] Interpretation and review of laboratory results Abnormal [facility] Protime [facility] INRon 09-27-2024 INR Coag (PPP) [Relative time] 4 {INR} Abnormal 0.9 - 1.[address] [facility] Interpretation and review of laboratory results Abnormal [facility] Protime [facility] INRon 09-23-2024 INR Coag (PPP) [Relative time] 2.5 {INR} Abnormal 0.9 - 1.[address] [facility] Interpretation and review of laboratory results Abnormal [facility]time [facility] INRon 09-20-2024 INR Coag (PPP) [Relative time] 2.9 {INR} Abnormal 0.9 - 1.[address] [facility] Interpretation and review of laboratory results Abnormal [facility] Protime [facility] INRon 09-16-2024 INR Coag (PPP) [Relative time] 2 {INR} Abnormal 0.9 - 1.[address] [facility] Interpretation and review of laboratory results Abnormal [facility] 09-15-2024 INR Coag (PPP) [Relative time] 2 {INR} Abnormal 0.9 - 1.[address] [facility] Interpretation and review of laboratory results Abnormal [facility] XR CHEST 2 VWSon 09-15-2024 XR CHEST 2 VWS Normal [facility] Protime & INRon 09-14-2024 INR Coag (PPP) [Relative time] 1.6 {INR} Abnormal 0.9 - 1.[address] [facility] Interpretation and review of laboratory results Abnormal [facility] Protime [facility] INRon 09-13-2024 INR Coag (PPP) [Relative time] 1.4 {INR} Abnormal 0.9 - 1.[address] [facility] Interpretation and review of laboratory results Abnormal [facility] Protime [facility] INRon 09-12-2024 INR Coag (PPP) [Relative time] 1.3 {INR} Abnormal 0.9 - 1.[address] [facility] Interpretation and review of laboratory results Abnormal [facility] Protime [facility] INRon 09-11-2024 INR Coag (PPP) [Relative time] 1.2 {INR} Abnormal 0.9 - 1.1 [facility] Interpretation and review of laboratory results Abnormal [facility] Protime & INRon 09-10-2024 INR Coag (PPP) [Relative time] 1.2 {INR} Abnormal 0.9 - 1.1 [facility] Interpretation and review of laboratory results Abnormal [facility] Protime & INRon 09-09-2024 INR Coag (PPP) [Relative time] 1.2 {INR} Abnormal 0.9 - 1.1 [facility] Interpretation and review of laboratory results Abnormal [facility] Protime & INRon 09-08-2024 INR Coag (PPP) [Relative time] 1.1 {INR} 0.9 - 1.1 [facility] BASIC METABOLIC PANLon 09-06 Anion gap [Moles/Vol] 10 mmol/L Normal 5-15 [facility] Comment on above: Performed By: #### C BCA, BMP ####[facility] ([id number])[address], [address], [place] [address] Calcium [Mass/Vol] 9.2 mg/dL Normal 8.5-10.5 [facility] Comment on above: Performed By: #### C BCA, BMP ####[facility] ([id number])[address], [address], [place] [address] Chloride [Moles/Vol] 99 mmol/L Normal 98-109 [facility] Comment on above: Performed By: #### C BCA, BMP ####[facility] ([id number])[address], [address], [place] [address] CO2 [Moles/Vol] 29 mmol/L Normal 22-32 [facility] Comment on above: Performed By: #### C BCA, BMP ####[facility] ([id number])[address], [address], [place] [address] Creatinine [Mass/Vol] 1.36 mg/dL High 0.60-1.30 [facility] Comment on above: Result Comment: METH OD TRACEABLE TO IDMS STANDARD Performed By: #### C BCA, BMP ####[facility] ([id number])[address], [address], [place] [address] GFR/1.73 sq M.predicted among non-blacks MDRD (S/P/Bld) [Vol rate/Area] 53 mL/min/{1.73_m2} Low >59 [facility] Comment on above: Result Comment: Repo rted eGFR is based on theCKD-EPI 2020 equation that doesnot use a race coefficient. Performed By: #### C BCA, BMP ####[facility] ([id number])[address] [address], [place] [address] Glucose [Mass/Vol] 124 mg/dL High 65-99 [facility] Comment on above: Performed By: #### C BCA, BMP ####[facility] ([id number])[address] [address] [place] [address], [place] [address] Potassium [Moles/Vol] 3.6 mmol/L Normal 3.5-5.0 [facility] Comment on above: Performed By: #### C BCA, BMP ####[facility] ([id number])[address] [address] [place] [address], [place] [address] Sodium [Moles/Vol] 138 mmol/L Normal 134-146 [facility] Comment on above: Performed By: #### C BCA, BMP ####[facility] ([id number])[address] [address] [place] [address] Urea nitrogen [Mass/Vol] 34 mg/dL High 5-27 [facility] Comment on above: Performed By: #### C BCA, BMP ####[facility] ([id number])[address] [address] [place] [address] CBC AND AUTO DIFFon 09-07-19 ABSOLUTE BASOPHIL 0.1 X10E9/L Normal 0.0-0.2 [facility] Comment on above: Performed By: #### C LENA, BMP ####[facility] ([id number])[address], [place] [address] ABSOLUTE NEUTROPHIL 4.0 X10E9/L Normal 1.5-6.6 [facility] Comment on above: Performed By: #### C LENA, BMP ####[facility] ([id number])[address] [address] [place] [address] Basophils/100 WBC (Bld) 1.7 % Normal [facility] Comment on above: Performed By: #### C LENA, BMP ####[facility] ([id number])[address] [address] [place] [address] Eosinophils (Bld) [#/Vol] 0.1 10*3/uL Normal 0.0-0.4 [facility] Comment on above: Performed By: #### C LENA, BMP ####[facility] ([id number])[address] [address] [place] [address] Eosinophils/100 WBC (Bld) 1.4 % Normal [facility] Comment on above: Performed By: #### C LENA, BMP ####[facility] ([id number])[address] [address] [place] [address] Erythrocyte distribution width (RBC) [Ratio] 18.5 % High 11.5-15.0 [facility] Comment on above: Performed By: #### C LENA, BMP ####[facility] ([id number])[address] [address] [place] [address] Hematocrit (Bld) [Volume fraction] 34.3 % Low 39-49 [facility] Comment on above: Performed By: #### C LENA, BMP ####[facility] ([id number])[address], [address] [address] Hemoglobin (Bld) [Mass/Vol] 11.4 g/dL Low 13.0-17.0 [facility] Comment on above: Performed By: #### C BCA, BMP ####[facility] ([id number])[address], [address] [address] Lymphocytes (Bld) [#/Vol] 1.2 10*3/uL Normal 1.0-3.5 [facility] Comment on above: Performed By: #### C LENA, BMP ####[facility] ([id number])[address], [address] [address] Lymphocytes/100 WBC (Bld) 19.4 % Normal [facility] Comment on above: Performed By: #### C LENA, BMP ####[facility] ([id number])[address], [address] [address] MCH (RBC) [Entitic mass] 26.3 pg Low 27-34 [facility] Comment on above: Performed By: #### C LENA, BMP ####[facility] ([id number])[address], [address] [address] MCHC (RBC) [Mass/Vol] 33.3 g/dL Normal 32-36 [facility] Comment on above: Performed By: #### C BCA, BMP ####[facility] ([id number])[address], [address] [address] MCV (RBC) [Entitic vol] 79 fL Low 80-100 [facility] Comment on above: Performed By: #### C BCA, BMP ####[facility] ([id number])[address], [address] [address] Monocytes (Bld) [#/Vol] 0.6 10*3/uL Normal 0-0.9 [facility] Comment on above: Performed By: #### C LENA, BMP ####[facility] ([id number])[address], [address], [place] [address] Monocytes/100 WBC (Bld) 10.5 % Normal [facility] Comment on above: Performed By: #### C LENA, BMP ####[facility] ([id number])[address], [address], [place] [address] Neutrophils/100 WBC (Bld) 67.0 % Normal [facility] Comment on above: Performed By: #### C LENA, BMP ####[facility] ([id number])[address], [address], [place] [address] Platelet mean volume (Bld) [Entitic vol] 7.2 fL Normal 7-12 [facility] Comment on above: Performed By: #### C LENA, BMP ####[facility] ([id number])[address], [address], [place] [address] Platelets (Bld) [#/Vol] 135 10*3/uL Low 150-450 [facility] Comment on above: Performed By: #### C LENA, BMP ####[facility] ([id number])[address], [address], [place] [address] RBC COUNT 4.33 X10E12/L Normal 4.10-5.70 [facility] Comment on above: Performed By: #### C BCA, BMP ####[facility] ([id number])[address], [address], [place] [address] WBC (Bld) [#/Vol] 6.0 10*3/uL Normal 4.0-11.0 [facility] Comment on above: Performed By: #### C LENA, BMP ####[facility] ([id number])[address], [address] [address] Glucose Glucometer (BldC) [M ass/Vol]on 09-06-2024 Glucose [Mass/Vol] 126 mg/dL High 65-99 [facility] Glucose [Mass/Vol] 138 mg/dL High 65-99 [facility] POTASSIUMon 09-06-2024 Potassium [Moles/Vol] 3.8 mmol/L Normal 3.5-5.0 [facility] Comment on above: Performed By: #### 2 823-3 ####[facility] ([id number])[address], [place] [address] XR CHEST 1 VWon 09-06-2024 XR CHEST 1 VW Normal [facility] BASIC METABOLIC PANLon 09-05 Anion gap [Moles/Vol] 11 mmol/L Normal 5-15 [facility] Comment on above: Performed By: #### B MP ####[facility] ([id number])[address], [address], [place] [address] Calcium [Mass/Vol] 8.9 mg/dL Normal 8.5-10.5 [facility] Comment on above: Performed By: #### B MP ####[facility] ([id number])[address], [address], [place] [address] Chloride [Moles/Vol] 99 mmol/L Normal 98-109 [facility] Comment on above: Performed By: #### B MP ####[facility] ([id number])[address], [address], [place] [address] CO2 [Moles/Vol] 25 mmol/L Normal 22-32 [facility] Comment on above: Performed By: #### B MP ####[facility] ([id number])[address], [place] [address] Creatinine [Mass/Vol] 1.31 mg/dL High 0.60-1.30 [facility] Comment on above: Result Comment: METH OD TRACEABLE TO IDMS STANDARD Performed By: #### B MP ####[facility] ([id number])[address], [address] [place] [address] GFR/1.73 sq M.predicted among non-blacks MDRD (S/P/Bld) [Vol rate/Area] 55 mL/min/{1.73_m2} Low >59 [facility] Comment on above: Result Comment: Repo rted eGFR is based on theCKD-EPI 2020 equation that doesnot use a race coefficient. Performed By: #### B MP ####[facility] ([id number])[address], [address] [place] [address] Glucose [Mass/Vol] 137 mg/dL High 65-99 [facility] Comment on above: Performed By: #### B MP ####[facility] ([id number])[address], [address] [place] [address] Potassium [Moles/Vol] 3.5 mmol/L Normal 3.5-5.0 [facility] Comment on above: Performed By: #### B MP ####[facility] ([id number])[address], [address] [place] [address] Sodium [Moles/Vol] 135 mmol/L Normal 134-146 [facility] Comment on above: Performed By: #### B MP ####[facility] ([id number])[address], [place] [address] Urea nitrogen [Mass/Vol] 32 mg/dL High 5-27 [facility] Comment on above: Performed By: #### B MP ####[facility] ([id number])[address], [address] [place] [address] CBC AND AUTO DIFFon 16 25 ABSOLUTE BASOPHIL 0.2 X10E9/L Normal 0.0-0.2 [facility] Comment on above: Performed By: #### C BCA, PINR ####[facility] ([id number])[address], [address] [address] ABSOLUTE NEUTROPHIL 4.4 X10E9/L Normal 1.5-6.6 [facility] Comment on above: Performed By: #### C BCA, PINR ####[facility] ([id number])[address], [place] [address] Basophils/100 WBC (Bld) 2.3 % Normal [facility] Comment on above: Performed By: #### C BCA, PINR ####[facility] ([id number])[address], [address], [place] [address] Eosinophils (Bld) [#/Vol] 0.1 10*3/uL Normal 0.0-0.4 [facility] Comment on above: Performed By: #### C BCA, PINR ####[facility] ([id number])[address] [address], [place] [address] Eosinophils/100 WBC (Bld) 1.3 % Normal [facility] Comment on above: Performed By: #### C BCA, PINR ####[facility] ([id number])[address] [address], [place] [address] Erythrocyte distribution width (RBC) [Ratio] 18.7 % High 11.5-15.0 [facility] Comment on above: Performed By: #### C BCA, PINR ####[facility] ([id number])[address] [address] Hematocrit (Bld) [Volume fraction] 34.1 % Low 39-49 [facility] Comment on above: Performed By: #### C BCA, PINR ####[facility] ([id number])[address] [address] Hemoglobin (Bld) [Mass/Vol] 11.5 g/dL Low 13.0-17.0 [facility] Comment on above: Performed By: #### C LENA, PINR ####[facility] ([id number])[address], [address], [place] [address] Lymphocytes (Bld) [#/Vol] 1.3 10*3/uL Normal 1.0-3.5 [facility] Comment on above: Performed By: #### C LENA, PINR ####[facility] ([id number])[address], [address] [place] [address] Lymphocytes/100 WBC (Bld) 19.1 % Normal [facility] Comment on above: Performed By: #### C LENA, PINR ####[facility] ([id number])[address], [address] [place] [address] MCH (RBC) [Entitic mass] 26.5 pg Low 27-34 [facility] Comment on above: Performed By: #### C LENA, PINR ####[facility] ([id number])[address], [address] [place] [address] MCHC (RBC) [Mass/Vol] 33.8 g/dL Normal 32-36 [facility] Comment on above: Performed By: #### C LENA, PINR ####[facility] ([id number])[address] [address] [place] [address] MCV (RBC) [Entitic vol] 78 fL Low 80-100 [facility] Comment on above: Performed By: #### C LENA, PINR ####[facility] ([id number])[address] [address] [place] [address], [place] [address] Monocytes (Bld) [#/Vol] 0.8 10*3/uL Normal 0-0.9 [facility] Comment on above: Performed By: #### C LENA, PINR ####[facility] ([id number])[address], [address], [place] [address] Monocytes/100 WBC (Bld) 12.4 % Normal [facility] Comment on above: Performed By: #### C LENA, PINR ####[facility] ([id number])[address], [address], [place] [address] Neutrophils/100 WBC (Bld) 64.9 % Normal [facility] Comment on above: Performed By: #### C LENA, PINR ####[facility] ([id number])[address], [place] [address] Platelet mean volume (Bld) [Entitic vol] 7.5 fL Normal 7-12 [facility] Comment on above: Performed By: #### C LENA, PINR ####[facility] ([id number])[address], [place] [address] Platelets (Bld) [#/Vol] 140 10*3/uL Low 150-450 [facility] Comment on above: Performed By: #### C LENA, PINR ####[facility] ([id number])[address], [address], [place] [address] RBC COUNT 4.35 X10E12/L Normal 4.10-5.70 [facility] Comment on above: Performed By: #### C LENA, PINR ####[facility] ([id number])[address], [address], [place] [address] WBC (Bld) [#/Vol] 6.8 10*3/uL Normal 4.0-11.0 [facility] Comment on above: Performed By: #### C LENA, PINR ####[facility] ([id number])[address], [address], [place] [address] Glucose Glucometer (BldC) [M ass/Vol]on 09-05-2024 Glucose [Mass/Vol] 267 mg/dL High 65-99 [facility] Glucose [Mass/Vol] 125 mg/dL High 65-99 [facility] Glucose [Mass/Vol] 199 mg/dL High 65-99 [facility] Glucose [Mass/Vol] 140 mg/dL High 65-99 [facility] POTASSIUMon 09-05-2024 Potassium [Moles/Vol] 3.9 mmol/L Normal 3.5-5.0 [facility] Comment on above: Performed By: #### 2 823-3 ####[facility] ([id number])[address], [address] [place] [address] PROTIME AND INRon 09-05-2024 INR Coag (PPP) [Relative time] 1.0 {INR} Normal 0.9-1.2 [facility] Comment on above: Performed By: #### C BCA, PINR ####[facility] ([id number])[address], [place] [address] PT Coag (PPP) [Time] 11.8 s Normal 9.8-13.2 [facility] Comment on above: Performed By: #### C BCA, PINR ####[facility] ([id number])[address], [address] [place] [address] XR CHEST 1 VWon 09-05-2024 XR CHEST 1 VW Normal [facility] BASIC METABOLIC PANLon 09-04 Anion gap [Moles/Vol] 12 mmol/L Normal 5-15 [facility] Comment on above: Performed By: #### P INR, CBCA, BMP ####[facility] ([id number])[address], [address] [place] [address] Calcium [Mass/Vol] 9.0 mg/dL Normal 8.5-10.5 [facility] Comment on above: Performed By: #### P INR, CBCA, BMP ####[facility] ([id number])[address] [address] Chloride [Moles/Vol] 97 mmol/L Low 98-109 [facility] Comment on above: Performed By: #### P INR, CBCA, BMP ####[facility] ([id number])[address] [address] CO2 [Moles/Vol] 27 mmol/L Normal 22-32 [facility] Comment on above: Performed By: #### P INR, CBCA, BMP ####[facility] ([id number])[address] [address] [address] Creatinine [Mass/Vol] 1.50 mg/dL High 0.60-1.30 [facility] Comment on above: Result Comment: METH OD TRACEABLE TO IDMS STANDARD Performed By: #### P INR, CBCA, BMP ####[facility] ([id number])[address] [address] [address] GFR/1.73 sq M.predicted among non-blacks MDRD (S/P/Bld) [Vol rate/Area] 47 mL/min/{1.73_m2} Low >59 [facility] Comment on above: Result Comment: Repo rted eGFR is based on theCKD-EPI 2020 equation that doesnot use a race coefficient. Performed By: #### P INR, CBCA, BMP ####[facility] ([id number])[address] [address] [place] [address] Glucose [Mass/Vol] 149 mg/dL High 65-99 [facility] Comment on above: Performed By: #### P INR, CBCA, BMP ####[facility] ([id number])[address] [address] [place] [address] Potassium [Moles/Vol] 3.7 mmol/L Normal 3.5-5.0 [facility] Comment on above: Performed By: #### P INR, CBCA, BMP ####[facility] ([id number])[address], [address] [place] [address] Sodium [Moles/Vol] 136 mmol/L Normal 134-146 [facility] Comment on above: Performed By: #### P INR, CBCA, BMP ####[facility] ([id number])[address] [address] [place] [address] Urea nitrogen [Mass/Vol] 34 mg/dL High 5-27 [facility] Comment on above: Performed By: #### P INR, CBCA, BMP ####[facility] ([id number])[address] [address] CBC AND AUTO DIFFon 15 25 ABSOLUTE BASOPHIL 0.0 X10E9/L Normal 0.0-0.2 [facility] Comment on above: Performed By: #### P INR, CBCA, BMP ####[facility] ([id number])[address] [address] ABSOLUTE NEUTROPHIL 4.3 X10E9/L Normal 1.5-6.6 [facility] Comment on above: Performed By: #### P INR, CBCA, BMP ####[facility] ([id number])[address] [address] Basophils/100 WBC (Bld) 0.6 % Normal [facility] Comment on above: Performed By: #### P INR, CBCA, BMP ####[facility] ([id number])[address] [address] Eosinophils (Bld) [#/Vol] 0.1 10*3/uL Normal 0.0-0.4 [facility] Comment on above: Performed By: #### P INR, CBCA, BMP ####[facility] ([id number])[address] [address] [place] [address] Eosinophils/100 WBC (Bld) 1.7 % Normal [facility] Comment on above: Performed By: #### P INR, CBCA, BMP ####[facility] ([id number])[address], [address] [place] [address] Erythrocyte distribution width (RBC) [Ratio] 19.0 % High 11.5-15.0 [facility] Comment on above: Performed By: #### P INR, CBCA, BMP ####[facility] ([id number])[address] [address] [place] [address] Hematocrit (Bld) [Volume fraction] 34.0 % Low 39-49 [facility] Comment on above: Performed By: #### P INR, CBCA, BMP ####[facility] ([id number])[address] [address] [place] [address] Hemoglobin (Bld) [Mass/Vol] 11.1 g/dL Low 13.0-17.0 [facility] Comment on above: Performed By: #### P INR, CBCA, BMP ####[facility] ([id number])[address] [address] [place] [address] Lymphocytes (Bld) [#/Vol] 1.4 10*3/uL Normal 1.0-3.5 [facility] Comment on above: Performed By: #### P INR, CBCA, BMP ####[facility] ([id number])[address] [address] [place] [address] Lymphocytes/100 WBC (Bld) 19.6 % Normal [facility] Comment on above: Performed By: #### P INR, CBCA, BMP ####[facility] ([id number])[address] [place] [address] MCH (RBC) [Entitic mass] 25.8 pg Low 27-34 [facility] Comment on above: Performed By: #### P INR, CBCA, BMP ####[facility] ([id number])[address], [address] [place] [address] 34595 MCHC (RBC) [Mass/Vol] 32.5 g/dL Normal 32-36 [facility] Comment on above: Performed By: #### P INR, CBCA, BMP ####[facility] ([id number])[address], [address] [place] [address]60 MCV (RBC) [Entitic vol] 79 fL Low 80-100 [facility] Comment on above: Performed By: #### P INR, CBCA, BMP ####[facility] ([id number])[address], [address] [place] [address] 17022 Monocytes (Bld) [#/Vol] 1.2 10*3/uL High 0-0.9 [facility] Comment on above: Performed By: #### P INR, CBCA, BMP ####[facility] ([id number])[address], [address] [place] [address] 26069 Monocytes/100 WBC (Bld) 16.6 % Normal [facility] Comment on above: Performed By: #### P INR, CBCA, BMP ####[facility] ([id number])[address] [address] Neutrophils/100 WBC (Bld) 61.5 % Normal [facility] Comment on above: Performed By: #### P INR, CBCA, BMP ####[facility] ([id number])[address] [address] [place] [address]237 Platelet mean volume (Bld) [Entitic vol] 7.1 fL Normal 7-12 [facility] Comment on above: Performed By: #### P INR, CBCA, BMP ####[facility] ([id number])[address], [address] [place] [address] 95499 Platelets (Bld) [#/Vol] 125 10*3/uL Low 150-450 [facility] Comment on above: Performed By: #### P INR, CBCA, BMP ####[facility] ([id number])[address], [address] [place] [address]305 RBC COUNT 4.29 X10E12/L Normal 4.10-5.70 [facility] Comment on above: Performed By: #### P INR, CBCA, BMP ####[facility] ([id number])[address], [address] [place] [address]100 WBC (Bld) [#/Vol] 7.0 10*3/uL Normal 4.0-11.0 [facility] Comment on above: Performed By: #### P INR, CBCA, BMP ####[facility] ([id number])[address] [address] [place] [address] CHEST WO CONTon CT CHEST WO CONT Normal [facility] Glucose Glucometer ([facility]) [M ass/Vol]on 09-04-2024 Glucose [Mass/Vol] 203 mg/dL High 65-99 [facility] Glucose [Mass/Vol] 161 mg/dL High 65-99 [facility] Glucose [Mass/Vol] 178 mg/dL High 65-99 [facility] Glucose [Mass/Vol] 142 mg/dL High 65-99 [facility] PROTIME AND INRon 09-04-2024 INR Coag (PPP) [Relative time] 1.0 {INR} Normal 0.9-1.2 [facility] Comment on above: Performed By: #### P INR, CBCA, BMP ####[facility] ([id number])[address], [address] [place] [address] PT Coag (PPP) [Time] 11.2 s Normal 9.8-13.2 [facility] Comment on above: Performed By: #### P INR, CBCA, BMP ####[facility] ([id number])[address], [address] [place] [address] XR CHEST 1 VWon 09-04-2024 XR CHEST 1 VW Normal [facility] BASIC METABOLIC PANLon 09-03 Anion gap [Moles/Vol] 12 mmol/L Normal 5-15 [facility] Comment on above: Performed By: #### C BCA, PINR, BMP ####[facility] ([id number])[address], [address] [place] [address] Calcium [Mass/Vol] 9.0 mg/dL Normal 8.5-10.5 [facility] Comment on above: Performed By: #### C BCA, PINR, BMP ####[facility] ([id number])[address], [address], [place] [address] Chloride [Moles/Vol] 94 mmol/L Low 98-109 [facility] Comment on above: Performed By: #### C BCA, PINR, BMP ####[facility] ([id number])[address], [address] [place] [address] CO2 [Moles/Vol] 28 mmol/L Normal 22-32 [facility] Comment on above: Performed By: #### C BCA, PINR, BMP ####[facility] ([id number])[address], [address], [place] [address] Creatinine [Mass/Vol] 1.65 mg/dL High 0.60-1.30 [facility] Comment on above: Result Comment: METH OD TRACEABLE TO IDMS STANDARD Performed By: #### C BCA, PINR, BMP ####[facility] ([id number])[address] [address] GFR/1.73 sq M.predicted among non-blacks MDRD (S/P/Bld) [Vol rate/Area] 42 mL/min/{1.73_m2} Low >59 [facility] Comment on above: Result Comment: Repo rted eGFR is based on theCKD-EPI 2020 equation that doesnot use a race coefficient. Performed By: #### C LENA PINR, BMP ####[facility] ([id number])[address] [address] Glucose [Mass/Vol] 144 mg/dL High 65-99 [facility] Comment on above: Performed By: #### C LENA PINR, BMP ####[facility] ([id number])[address] [address] Potassium [Moles/Vol] 3.8 mmol/L Normal 3.5-5.0 [facility] Comment on above: Performed By: #### C LENA PINR, BMP ####[facility] ([id number])[address] [address] Sodium [Moles/Vol] 134 mmol/L Normal 134-146 [facility] Comment on above: Performed By: #### C LENA PINR, BMP ####[facility] ([id number])[address] [address] Urea nitrogen [Mass/Vol] 33 mg/dL High 5-27 [facility] Comment on above: Performed By: #### C LENA PINR, BMP ####[facility] ([id number])[address] [address] CBC AND AUTO DIFFon 09-04-19 25 Band form neutrophils/100 WBC (Bld) 3.0 % Normal [facility] Comment on above: Performed By: #### C BCA PINR, BMP ####[facility] ([id number])[address], [address], [place] [address] Erythrocyte distribution width (RBC) [Ratio] 18.9 % High 11.5-15.0 [facility] Comment on above: Performed By: #### C LENA PINR, BMP ####[facility] ([id number])[address], [address], [place] [address] Hematocrit (Bld) [Volume fraction] 35.4 % Low 39-49 [facility] Comment on above: Performed By: #### C LENA PINR, BMP ####[facility] ([id number])[address] [address], [place] [address] Hemoglobin (Bld) [Mass/Vol] 12.0 g/dL Low 13.0-17.0 [facility] Comment on above: Performed By: #### C LENA PINR, BMP ####[facility] ([id number])[address] [address] [place] [address] Lymphocytes (Bld) [#/Vol] 1.3 10*3/uL Normal 1.0-3.5 [facility] Comment on above: Performed By: #### C LENA PINR, BMP ####[facility] ([id number])[address] [address] [place] [address] Lymphocytes/100 WBC (Bld) 23.0 % Normal [facility] Comment on above: Performed By: #### C LENA PINR, BMP ####[facility] ([id number])[address] [address], [place] [address] MCH (RBC) [Entitic mass] 26.6 pg Low 27-34 [facility] Comment on above: Performed By: #### C LENA, PINR, BMP ####[facility] ([id number])[address] [address], [place] [address] MCHC (RBC) [Mass/Vol] 33.8 g/dL Normal 32-36 [facility] Comment on above: Performed By: #### C JESÚS PAREDES, BMP ####[facility] ([id number])[address], [address] [place] [address] MCV (RBC) [Entitic vol] 79 fL Low 80-100 [facility] Comment on above: Performed By: #### C ROBINSON PAREDESR, BMP ####[facility] ([id number])[address] [address] [place] [address] Monocytes (Bld) [#/Vol] 1.2 10*3/uL High 0-0.9 [facility] Comment on above: Performed By: #### C JESÚS PAREDES, BMP ####[facility] ([id number])[address] [address] [place] [address] Monocytes/100 WBC (Bld) 22.0 % Normal [facility] Comment on above: Performed By: #### JESÚS Zelaya BCA, BMP ####[facility] ([id number])[address] [address] [place] [address] Neutrophils (Bld) [#/Vol] 3.0 10*3/uL Normal 1.5-6.6 [facility] Comment on above: Performed By: #### ROBINSON Zelaya BCAR, BMP ####[facility] ([id number])[address] [address] [place] [address] OVALOCYTE 1+ Abnormal NONE [facility] Comment on above: Performed By: #### JESÚS Zelaya BCA, BMP ####[facility] ([id number])[address] [address] [place] [address] Platelet mean volume (Bld) [Entitic vol] 7.2 fL Normal 7-12 [facility] Comment on above: Performed By: #### Nathalie PAREDES PINR, BMP ####[facility] ([id number])[address], [address] [place] [address] Platelets (Bld) [#/Vol] 128 10*3/uL Low 150-450 [facility] Comment on above: Performed By: #### C LENA PINR, BMP ####[facility] ([id number])[address], [address], [place] [address] RBC COUNT 4.49 X10E12/L Normal 4.10-5.70 [facility] Comment on above: Performed By: #### C JESÚS PAREDES, BMP ####[facility] ([id number])[address], [address] [address] SEG NEUTROPHIL 52.0 % Normal [facility] Comment on above: Performed By: #### C LENA PINR, BMP ####[facility] ([id number])[address], [address] [place] [address] WBC (Bld) [#/Vol] 5.5 10*3/uL Normal 4.0-11.0 [facility] Comment on above: Performed By: #### C LENA PINR, BMP ####[facility] ([id number])[address] [address] Glucose Glucometer (BldC) [M ass/Vol]on 09-03-2024 Glucose [Mass/Vol] 195 mg/dL High 65-99 [facility] Glucose [Mass/Vol] 165 mg/dL High 65-99 [facility] Glucose [Mass/Vol] 164 mg/dL High 65-99 [facility] Glucose [Mass/Vol] 130 mg/dL High 65-99 [facility] PROTIME AND INRon 09-03-2024 INR Coag (PPP) [Relative time] 1.1 {INR} Normal 0.9-1.2 [facility] Comment on above: Performed By: #### C LENA PINR, BMP ####[facility] ([id number])[address], [address], [place] [address] PT Coag (PPP) [Time] 12.3 s Normal 9.8-13.2 [facility] Comment on above: Performed By: #### C BCA, PINR, BMP ####[facility] ([id number])[address], [address], [place] [address] XR CHEST 1 VWon 09-03-2024 XR CHEST 1 VW Normal [facility] BASIC METABOLIC PANLon 09-02 Anion gap [Moles/Vol] 11 mmol/L Normal 5-15 [facility] Comment on above: Performed By: #### C BCA, BMP ####[facility] ([id number])[address], [address], [place] [address] Calcium [Mass/Vol] 9.0 mg/dL Normal 8.5-10.5 [facility] Comment on above: Performed By: #### C BCA, BMP ####[facility] ([id number])[address], [address], [place] [address] Chloride [Moles/Vol] 96 mmol/L Low 98-109 [facility] Comment on above: Performed By: #### C BCA, BMP ####[facility] ([id number])[address], [address], [place] [address] CO2 [Moles/Vol] 29 mmol/L Normal 22-32 [facility] Comment on above: Performed By: #### C BCA, BMP ####[facility] ([id number])[address], [address], [place] [address] Creatinine [Mass/Vol] 1.43 mg/dL High 0.60-1.30 [facility] Comment on above: Result Comment: METH OD TRACEABLE TO IDMS STANDARD Performed By: #### C BCA, BMP ####[facility] ([id number])[address] [address] GFR/1.73 sq M.predicted among non-blacks MDRD (S/P/Bld) [Vol rate/Area] 50 mL/min/{1.73_m2} Low >59 [facility] Comment on above: Result Comment: Repo rted eGFR is based on theCKD-EPI 2020 equation that doesnot use a race coefficient. Performed By: #### C BCA, BMP ####[facility] ([id number])[address] [address] Glucose [Mass/Vol] 125 mg/dL High 65-99 [facility] Comment on above: Performed By: #### C BCA, BMP ####[facility] ([id number])[address] [address] Potassium [Moles/Vol] 4.0 mmol/L Normal 3.5-5.0 [facility] Comment on above: Performed By: #### C BCA, BMP ####[facility] ([id number])[address] [address] Sodium [Moles/Vol] 136 mmol/L Normal 134-146 [facility] Comment on above: Performed By: #### C BCA, BMP ####[facility] ([id number])[address] [address] Urea nitrogen [Mass/Vol] 30 mg/dL High 5-27 [facility] Comment on above: Performed By: #### C BCA, BMP ####[facility] ([id number])[address] [address] CBC AND AUTO DIFFon 09-03-19 25 ABSOLUTE BASOPHIL 0.0 X10E9/L Normal 0.0-0.2 [facility] Comment on above: Performed By: #### C BCA, BMP ####[facility] ([id number])[address], [address], [place] [address] ABSOLUTE NEUTROPHIL 4.8 X10E9/L Normal 1.5-6.6 [facility] Comment on above: Performed By: #### C LENA, BMP ####[facility] ([id number])[address], [address], [place] [address] Basophils/100 WBC (Bld) 0.8 % Normal [facility] Comment on above: Performed By: #### C LENA, BMP ####[facility] ([id number])[address], [address], [place] [address] Eosinophils (Bld) [#/Vol] 0.2 10*3/uL Normal 0.0-0.4 [facility] Comment on above: Performed By: #### C LENA, BMP ####[facility] ([id number])[address], [address] [place] [address] Eosinophils/100 WBC (Bld) 3.3 % Normal [facility] Comment on above: Performed By: #### C LENA, BMP ####[facility] ([id number])[address], [address], [place] [address] Erythrocyte distribution width (RBC) [Ratio] 19.5 % High 11.5-15.0 [facility] Comment on above: Performed By: #### C LENA, BMP ####[facility] ([id number])[address], [address], [place] [address] Hematocrit (Bld) [Volume fraction] 35.5 % Low 39-49 [facility] Comment on above: Performed By: #### C LENA, BMP ####[facility] ([id number])[address], [address], [place] [address] Hemoglobin (Bld) [Mass/Vol] 12.0 g/dL Low 13.0-17.0 [facility] Comment on above: Performed By: #### C BCA, BMP ####[facility] ([id number])[address] [address] [place] [address] Lymphocytes (Bld) [#/Vol] 1.0 10*3/uL Normal 1.0-3.5 [facility] Comment on above: Performed By: #### C BCA, BMP ####[facility] ([id number])[address] [address] [place] [address] Lymphocytes/100 WBC (Bld) 15.1 % Normal [facility] Comment on above: Performed By: #### C LENA, BMP ####[facility] ([id number])[address] [address] [place] [address] MCH (RBC) [Entitic mass] 26.7 pg Low 27-34 [facility] Comment on above: Performed By: #### C BCA, BMP ####[facility] ([id number])[address] [address] [place] [address] MCHC (RBC) [Mass/Vol] 33.8 g/dL Normal 32-36 [facility] Comment on above: Performed By: #### C BCA, BMP ####[facility] ([id number])[address] [address] MCV (RBC) [Entitic vol] 79 fL Low 80-100 [facility] Comment on above: Performed By: #### C BCA, BMP ####[facility] ([id number])[address] [address] Monocytes (Bld) [#/Vol] 0.5 10*3/uL Normal 0-0.9 [facility] Comment on above: Performed By: #### C BCA, BMP ####[facility] ([id number])[address] [place] [address] Monocytes/100 WBC (Bld) 7.5 % Normal [facility] Comment on above: Performed By: #### Nathalie PAREDES, BMP ####[facility] ([id number])[address] [address], [place] [address] Neutrophils/100 WBC (Bld) 73.3 % Normal [facility] Comment on above: Performed By: #### Nathalie PAREDES, BMP ####[facility] ([id number])[address] [address] [place] [address] Platelet mean volume (Bld) [Entitic vol] 7.3 fL Normal 7-12 [facility] Comment on above: Performed By: #### Nathalie PAREDES, BMP ####[facility] ([id number])[address] [address] Platelets (Bld) [#/Vol] 142 10*3/uL Low 150-450 [facility] Comment on above: Performed By: #### Nathalie PAREDES, BMP ####[facility] ([id number])[address] [address] RBC COUNT 4.48 X10E12/L Normal 4.10-5.70 [facility] Comment on above: Performed By: #### Nathalie PAREDES, BMP ####[facility] ([id number])[address] [address] WBC (Bld) [#/Vol] 6.5 10*3/uL Normal 4.0-11.0 [facility] Comment on above: Performed By: #### Nathalie PAREDES, BMP ####[facility] ([id number])[address] [address] Glucose Glucometer (BldC) [M ass/Vol]on 09-02-2024 Glucose [Mass/Vol] 168 mg/dL High 65-99 [facility] Glucose [Mass/Vol] 192 mg/dL High 65-99 [facility] Glucose [Mass/Vol] 138 mg/dL High 65-99 [facility] Glucose [Mass/Vol] 137 mg/dL High 65-99 [facility] XR CHEST 1 VWon 09-02-2024 XR CHEST 1 VW Normal [facility] BASIC METABOLIC PANLon 09-01 Anion gap [Moles/Vol] 12 mmol/L Normal 5-15 [facility] Comment on above: Performed By: #### C BCA, BMP ####[facility] ([id number])[address], [place] [address] Calcium [Mass/Vol] 8.9 mg/dL Normal 8.5-10.5 [facility] Comment on above: Performed By: #### C BCA, BMP ####[facility] ([id number])[address], [place] [address] Chloride [Moles/Vol] 98 mmol/L Normal 98-109 [facility] Comment on above: Performed By: #### C BCA, BMP ####[facility] ([id number])[address], [address] [place] [address] CO2 [Moles/Vol] 28 mmol/L Normal 22-32 [facility] Comment on above: Performed By: #### C BCA, BMP ####[facility] ([id number])[address], [place] [address] Creatinine [Mass/Vol] 1.51 mg/dL High 0.60-1.30 [facility] Comment on above: Result Comment: METH OD TRACEABLE TO IDMS STANDARD Performed By: #### C BCA, BMP ####[facility] ([id number])[address], [address] [place] [address] GFR/1.73 sq M.predicted among non-blacks MDRD (S/P/Bld) [Vol rate/Area] 47 mL/min/{1.73_m2} Low >59 [facility] Comment on above: Result Comment: Repo rted eGFR is based on theCKD-EPI 2020 equation that doesnot use a race coefficient. Performed By: #### C LENA, BMP ####[facility] ([id number])[address], [place] [address] Glucose [Mass/Vol] 114 mg/dL High 65-99 [facility] Comment on above: Performed By: #### C LENA, BMP ####[facility] ([id number])[address] [place] [address] Potassium [Moles/Vol] 3.6 mmol/L Normal 3.5-5.0 [facility] Comment on above: Performed By: #### C LENA, BMP ####[facility] ([id number])[address] [place] [address] Sodium [Moles/Vol] 138 mmol/L Normal 134-146 [facility] Comment on above: Performed By: #### C LENA, BMP ####[facility] ([id number])[address] [place] [address] Urea nitrogen [Mass/Vol] 33 mg/dL High 5-27 [facility] Comment on above: Performed By: #### C LENA, BMP ####[facility] ([id number])[address] [address], [place] [address] CBC AND AUTO DIFFon 09-02-19 25 ABSOLUTE BASOPHIL 0.1 X10E9/L Normal 0.0-0.2 [facility] Comment on above: Performed By: #### C BCA, BMP ####[facility] ([id number])[address] [address] [place] [address] ABSOLUTE NEUTROPHIL 5.9 X10E9/L Normal 1.5-6.6 [facility] Comment on above: Performed By: #### C BCA, BMP ####[facility] ([id number])[address], [place] [address] Basophils/100 WBC (Bld) 0.7 % Normal [facility] Comment on above: Performed By: #### C BCA, BMP ####[facility] ([id number])[address], [place] [address] Eosinophils (Bld) [#/Vol] 0.3 10*3/uL Normal 0.0-0.4 [facility] Comment on above: Performed By: #### C LENA, BMP ####[facility] ([id number])[address] [address] [place] [address] Eosinophils/100 WBC (Bld) 2.8 % Normal [facility] Comment on above: Performed By: #### C LENA, BMP ####[facility] ([id number])[address] [address] [address] Erythrocyte distribution width (RBC) [Ratio] 18.9 % High 11.5-15.0 [facility] Comment on above: Performed By: #### C LENA, BMP ####[facility] ([id number])[address] [address], [place] [address] Hematocrit (Bld) [Volume fraction] 36.4 % Low 39-49 [facility] Comment on above: Performed By: #### C BCA, BMP ####[facility] ([id number])[address], [place] [address] Hemoglobin (Bld) [Mass/Vol] 12.1 g/dL Low 13.0-17.0 [facility] Comment on above: Performed By: #### C BCA, BMP ####[facility] ([id number])[address], [place] [address] Lymphocytes (Bld) [#/Vol] 1.8 10*3/uL Normal 1.0-3.5 [facility] Comment on above: Performed By: #### C LENA, BMP ####[facility] ([id number])[address], [place] [address] Lymphocytes/100 WBC (Bld) 19.6 % Normal [facility] Comment on above: Performed By: #### C LENA, BMP ####[facility] ([id number])[address], [place] [address] MCH (RBC) [Entitic mass] 26.2 pg Low 27-34 [facility] Comment on above: Performed By: #### C LENA, BMP ####[facility] ([id number])[address] [address], [place] [address] MCHC (RBC) [Mass/Vol] 33.2 g/dL Normal 32-36 [facility] Comment on above: Performed By: #### C LENA, BMP ####[facility] ([id number])[address], [place] [address] MCV (RBC) [Entitic vol] 79 fL Low 80-100 [facility] Comment on above: Performed By: #### C LENA, BMP ####[facility] ([id number])[address] [address], [place] [address] Monocytes (Bld) [#/Vol] 1.1 10*3/uL High 0-0.9 [facility] Comment on above: Performed By: #### C LENA, BMP ####[facility] ([id number])[address] [address], [place] [address] Monocytes/100 WBC (Bld) 12.2 % Normal [facility] Comment on above: Performed By: #### C LENA, BMP ####[facility] ([id number])[address], [place] [address] Neutrophils/100 WBC (Bld) 64.7 % Normal [facility] Comment on above: Performed By: #### Nathalie PAREDES, BMP ####[facility] ([id number])[address] [place] [address] Platelet mean volume (Bld) [Entitic vol] 7.7 fL Normal 7-12 [facility] Comment on above: Performed By: #### Nathalie PAREDES, BMP ####[facility] ([id number])[address] [place] [address] Platelets (Bld) [#/Vol] 180 10*3/uL Normal 150-450 [facility] Comment on above: Performed By: #### Nathalie PAREDES, BMP ####[facility] ([id number])[address], [place] [address] RBC COUNT 4.61 X10E12/L Normal 4.10-5.70 [facility] Comment on above: Performed By: #### Nathalie PAREDES, BMP ####[facility] ([id number])[address] [address] WBC (Bld) [#/Vol] 9.1 10*3/uL Normal 4.0-11.0 [facility] Comment on above: Performed By: #### Nathalie PAREDES, BMP ####[facility] ([id number])[address], [address] [place] [address], [place] [address] CT CHEST WO CONTon CT CHEST WO CONT Normal [facility] Glucose Glucometer ([facility]) [M ass/Vol]on 09-01-2024 Glucose [Mass/Vol] 161 mg/dL High 65-99 [facility] Glucose [Mass/Vol] 189 mg/dL High 65-99 [facility] Glucose [Mass/Vol] 133 mg/dL High 65-99 [facility] Glucose [Mass/Vol] 136 mg/dL High 65-99 [facility] POTASSIUMon 09-01-2024 Potassium [Moles/Vol] 4.0 mmol/L Normal 3.5-5.0 [facility] Comment on above: Performed By: #### 2 823-3 ####[facility] ([id number])[address], [address] [address] XR CHEST 1 VWon 09-01-2024 XR CHEST 1 VW Normal [facility] BASIC METABOLIC PANLon 08-31 Anion gap [Moles/Vol] 11 mmol/L Normal 5-15 [facility] Comment on above: Performed By: #### C BCA, BMP ####[facility] ([id number])[address], [address] [address] Calcium [Mass/Vol] 9.2 mg/dL Normal 8.5-10.5 [facility] Comment on above: Performed By: #### C BCA, BMP ####[facility] ([id number])[address], [address] [address] Chloride [Moles/Vol] 98 mmol/L Normal 98-109 [facility] Comment on above: Performed By: #### C BCA, BMP ####[facility] ([id number])[address], [address] [place] [address], [place] [address] CO2 [Moles/Vol] 28 mmol/L Normal 22-32 [facility] Comment on above: Performed By: #### C BCA, BMP ####[facility] ([id number])[address], [address] [address] Creatinine [Mass/Vol] 1.40 mg/dL High 0.60-1.30 [facility] Comment on above: Result Comment: METH OD TRACEABLE TO IDMS STANDARD Performed By: #### C BCA, BMP ####[facility] ([id number])[address] [address] [place] [address] GFR/1.73 sq M.predicted among non-blacks MDRD (S/P/Bld) [Vol rate/Area] 51 mL/min/{1.73_m2} Low >59 [facility] Comment on above: Result Comment: Repo rted eGFR is based on theCKD-EPI 2020 equation that doesnot use a race coefficient. Performed By: #### C BCA, BMP ####[facility] ([id number])[address] [address] [place] [address] Glucose [Mass/Vol] 119 mg/dL High 65-99 [facility] Comment on above: Performed By: #### C BCA, BMP ####[facility] ([id number])[address] [address] Potassium [Moles/Vol] 3.4 mmol/L Low 3.5-5.0 [facility] Comment on above: Performed By: #### C BCA, BMP ####[facility] ([id number])[address] [address] Sodium [Moles/Vol] 137 mmol/L Normal 134-146 [facility] Comment on above: Performed By: #### C BCA, BMP ####[facility] ([id number])[address] [address] Urea nitrogen [Mass/Vol] 31 mg/dL High 5-27 [facility] Comment on above: Performed By: #### C BCA, BMP ####[facility] ([id number])[address] [address] CBC AND AUTO DIFFon 09-01-19 25 ABSOLUTE BASOPHIL 0.0 X10E9/L Normal 0.0-0.2 [facility] Comment on above: Performed By: #### C BCA, BMP ####[facility] ([id number])[address], [place] [address] ABSOLUTE NEUTROPHIL 5.0 X10E9/L Normal 1.5-6.6 [facility] Comment on above: Performed By: #### C LENA, BMP ####[facility] ([id number])[address] [address] Basophils/100 WBC (Bld) 0.5 % Normal [facility] Comment on above: Performed By: #### C LENA, BMP ####[facility] ([id number])[address] [address] Eosinophils (Bld) [#/Vol] 0.1 10*3/uL Normal 0.0-0.4 [facility] Comment on above: Performed By: #### C LENA, BMP ####[facility] ([id number])[address], [address] [address] Eosinophils/100 WBC (Bld) 1.9 % Normal [facility] Comment on above: Performed By: #### C LENA, BMP ####[facility] ([id number])[address], [place] [address] Erythrocyte distribution width (RBC) [Ratio] 19.0 % High 11.5-15.0 [facility] Comment on above: Performed By: #### C LENA, BMP ####[facility] ([id number])[address], [place] [address] Hematocrit (Bld) [Volume fraction] 37.3 % Low 39-49 [facility] Comment on above: Performed By: #### C BCA, BMP ####[facility] ([id number])[address], [place] [address] Hemoglobin (Bld) [Mass/Vol] 12.6 g/dL Low 13.0-17.0 [facility] Comment on above: Performed By: #### C LENA, BMP ####[facility] ([id number])[address], [place] [address] Lymphocytes (Bld) [#/Vol] 1.7 10*3/uL Normal 1.0-3.5 [facility] Comment on above: Performed By: #### C LENA, BMP ####[facility] ([id number])[address], [address], [place] [address] Lymphocytes/100 WBC (Bld) 22.0 % Normal [facility] Comment on above: Performed By: #### C LENA, BMP ####[facility] ([id number])[address], [address], [place] [address] MCH (RBC) [Entitic mass] 26.5 pg Low 27-34 [facility] Comment on above: Performed By: #### C LENA, BMP ####[facility] ([id number])[address], [address], [place] [address] MCHC (RBC) [Mass/Vol] 33.7 g/dL Normal 32-36 [facility] Comment on above: Performed By: #### C LENA, BMP ####[facility] ([id number])[address], [place] [address] MCV (RBC) [Entitic vol] 79 fL Low 80-100 [facility] Comment on above: Performed By: #### C LENA, BMP ####[facility] ([id number])[address], [address], [place] [address] Monocytes (Bld) [#/Vol] 0.8 10*3/uL Normal 0-0.9 [facility] Comment on above: Performed By: #### C BCA, BMP ####[facility] ([id number])[address], [address], [place] [address] Monocytes/100 WBC (Bld) 10.8 % Normal [facility] Comment on above: Performed By: #### Nathalie PAREDES, BMP ####[facility] ([id number])[address] [place] [address] Neutrophils/100 WBC (Bld) 64.8 % Normal [facility] Comment on above: Performed By: #### Nathalie PAREDES, BMP ####[facility] ([id number])[address], [place] [address] Platelet mean volume (Bld) [Entitic vol] 7.7 fL Normal 7-12 [facility] Comment on above: Performed By: #### Nathalie PAREDES, BMP ####[facility] ([id number])[address] [address], [place] [address] Platelets (Bld) [#/Vol] 163 10*3/uL Normal 150-450 [facility] Comment on above: Performed By: #### Nathalie PAREDES, BMP ####[facility] ([id number])[address] [place] [address] RBC COUNT 4.74 X10E12/L Normal 4.10-5.70 [facility] Comment on above: Performed By: #### Nathalie PAREDES, BMP ####[facility] ([id number])[address] [address] [place] [address] WBC (Bld) [#/Vol] 7.7 10*3/uL Normal 4.0-11.0 [facility] Comment on above: Performed By: #### Nathalie PAREDES, BMP ####[facility] ([id number])[address] [address] [place] [address] Glucose Glucometer (BldC) [M ass/Vol]on 08-31-2024 Glucose [Mass/Vol] 353 mg/dL High 65-99 [facility] Glucose [Mass/Vol] 135 mg/dL High 65-99 [facility] Glucose [Mass/Vol] 233 mg/dL High 65-99 [facility] Glucose [Mass/Vol] 132 mg/dL High 65-99 [facility] XR CHEST 1 VWon 08-31-2024 XR CHEST 1 VW Normal [facility] BASIC METABOLIC PANLon 08-30 Anion gap [Moles/Vol] 11 mmol/L Normal 5-15 [facility] Comment on above: Performed By: #### C BCA, BMP ####[facility] ([id number])[address], [address] [place] [address] Calcium [Mass/Vol] 9.4 mg/dL Normal 8.5-10.5 [facility] Comment on above: Performed By: #### C BCA, BMP ####[facility] ([id number])[address] [address] [place] [address] Chloride [Moles/Vol] 98 mmol/L Normal 98-109 [facility] Comment on above: Performed By: #### C BCA, BMP ####[facility] ([id number])[address] [address] [place] [address] CO2 [Moles/Vol] 31 mmol/L Normal 22-32 [facility] Comment on above: Performed By: #### C BCA, BMP ####[facility] ([id number])[address] [address] [place] [address] Creatinine [Mass/Vol] 1.45 mg/dL High 0.60-1.30 [facility] Comment on above: Result Comment: METH OD TRACEABLE TO IDMS STANDARD Performed By: #### C BCA, BMP ####[facility] ([id number])[address] [address] [place] [address] GFR/1.73 sq M.predicted among non-blacks MDRD (S/P/Bld) [Vol rate/Area] 49 mL/min/{1.73_m2} Low >59 [facility] Comment on above: Result Comment: Repo rted eGFR is based on theD-EPI 2020 equation that doesnot use a race coefficient. Performed By: #### C LENA, BMP ####[facility] ([id number])[address], [place] [address] Glucose [Mass/Vol] 116 mg/dL High 65-99 [facility] Comment on above: Performed By: #### C LENA, BMP ####[facility] ([id number])[address] [address], [place] [address] Potassium [Moles/Vol] 3.6 mmol/L Normal 3.5-5.0 [facility] Comment on above: Performed By: #### C LENA, BMP ####[facility] ([id number])[address], [place] [address] Sodium [Moles/Vol] 140 mmol/L Normal 134-146 [facility] Comment on above: Performed By: #### C LENA, BMP ####[facility] ([id number])[address] [address] [place] [address] Urea nitrogen [Mass/Vol] 32 mg/dL High 5-27 [facility] Comment on above: Performed By: #### C BCA, BMP ####[facility] ([id number])[address] [address] [place] [address] CBC AND AUTO DIFFon 03-10-20 25 ABSOLUTE BASOPHIL 0.0 X10E9/L Normal 0.0-0.2 [facility] Comment on above: Performed By: #### C BCA, BMP ####[facility] ([id number])[address] [address] [place] [address] ABSOLUTE NEUTROPHIL 5.3 X10E9/L Normal 1.5-6.6 [facility] Comment on above: Performed By: #### C BCA, BMP ####[facility] ([id number])[address] [address] Basophils/100 WBC (Bld) 0.6 % Normal [facility] Comment on above: Performed By: #### C BCA, BMP ####[facility] ([id number])[address] [place] [address] Eosinophils (Bld) [#/Vol] 0.1 10*3/uL Normal 0.0-0.4 [facility] Comment on above: Performed By: #### C LENA, BMP ####[facility] ([id number])[address] [address] Eosinophils/100 WBC (Bld) 1.6 % Normal [facility] Comment on above: Performed By: #### C LENA, BMP ####[facility] ([id number])[address], [place] [address] Erythrocyte distribution width (RBC) [Ratio] 18.7 % High 11.5-15.0 [facility] Comment on above: Performed By: #### C LENA, BMP ####[facility] ([id number])[address] [address] [place] [address] Hematocrit (Bld) [Volume fraction] 36.9 % Low 39-49 [facility] Comment on above: Performed By: #### C LENA, BMP ####[facility] ([id number])[address] [address] Hemoglobin (Bld) [Mass/Vol] 12.2 g/dL Low 13.0-17.0 [facility] Comment on above: Performed By: #### C BCA, BMP ####[facility] ([id number])[address], [address] [place] [address] Lymphocytes (Bld) [#/Vol] 1.4 10*3/uL Normal 1.0-3.5 [facility] Comment on above: Performed By: #### C LENA, BMP ####[facility] ([id number])[address], [address] [place] [address] Lymphocytes/100 WBC (Bld) 18.8 % Normal [facility] Comment on above: Performed By: #### C LENA, BMP ####[facility] ([id number])[address], [address] [place] [address] MCH (RBC) [Entitic mass] 26.1 pg Low 27-34 [facility] Comment on above: Performed By: #### C LENA, BMP ####[facility] ([id number])[address] [address] [place] [address] MCHC (RBC) [Mass/Vol] 33.1 g/dL Normal 32-36 [facility] Comment on above: Performed By: #### C LENA, BMP ####[facility] ([id number])[address] [address], [place] [address] MCV (RBC) [Entitic vol] 79 fL Low 80-100 [facility] Comment on above: Performed By: #### C LENA, BMP ####[facility] ([id number])[address] [address] [place] [address] Monocytes (Bld) [#/Vol] 0.6 10*3/uL Normal 0-0.9 [facility] Comment on above: Performed By: #### C LENA, BMP ####[facility] ([id number])[address] [address] [place] [address] Monocytes/100 WBC (Bld) 8.3 % Normal [facility] Comment on above: Performed By: #### C BCA, BMP ####[facility] ([id number])[address] [address] Neutrophils/100 WBC (Bld) 70.7 % Normal [facility] Comment on above: Performed By: #### Nathalie PAREDES, BMP ####[facility] ([id number])[address] [address] Platelet mean volume (Bld) [Entitic vol] 7.9 fL Normal 7-12 [facility] Comment on above: Performed By: #### Nathalie PAREDES, BMP ####[facility] ([id number])[address] [address] Platelets (Bld) [#/Vol] 158 10*3/uL Normal 150-450 [facility] Comment on above: Performed By: #### Nathalie PAREDES, BMP ####[facility] ([id number])[address] [address] RBC COUNT 4.69 X10E12/L Normal 4.10-5.70 [facility] Comment on above: Performed By: #### Nathalie PAREDES, BMP ####[facility] ([id number])[address] [address] WBC (Bld) [#/Vol] 7.5 10*3/uL Normal 4.0-11.0 [facility] Comment on above: Performed By: #### Nathalie PAREDES, BMP ####[facility] ([id number])[address] [address] Glucose Glucometer (dC) [M ass/Vol]on 08-30-2024 Glucose [Mass/Vol] 190 mg/dL High 65-99 [facility] Glucose [Mass/Vol] 132 mg/dL High 65-99 [facility] Glucose [Mass/Vol] 118 mg/dL High 65-99 [facility] XR CHEST 1 VWon 08-30-2024 XR CHEST 1 VW Normal [facility] BASIC METABOLIC PANLon 08-29 Anion gap [Moles/Vol] 8 mmol/L Normal 5-15 [facility] Comment on above: Performed By: #### C BCA, BMP ####[facility] ([id number])[address] [address] [place] [address] Calcium [Mass/Vol] 9.2 mg/dL Normal 8.5-10.5 [facility] Comment on above: Performed By: #### C BCA, BMP ####[facility] ([id number])[address] [address] [place] [address] Chloride [Moles/Vol] 99 mmol/L Normal 98-109 [facility] Comment on above: Performed By: #### C BCA, BMP ####[facility] ([id number])[address] [address] [place] [address] CO2 [Moles/Vol] 29 mmol/L Normal 22-32 [facility] Comment on above: Performed By: #### C BCA, BMP ####[facility] ([id number])[address] [address] Creatinine [Mass/Vol] 1.63 mg/dL High 0.60-1.30 [facility] Comment on above: Result Comment: METH OD TRACEABLE TO IDMS STANDARD Performed By: #### C BCA, BMP ####[facility] ([id number])[address] [address] GFR/1.73 sq M.predicted among non-blacks MDRD (S/P/Bld) [Vol rate/Area] 43 mL/min/{1.73_m2} Low >59 [facility] Comment on above: Result Comment: Repo rted eGFR is based on theCKD-EPI 2020 equation that doesnot use a race coefficient. Performed By: #### C BCA, BMP ####[facility] ([id number])[address] [address] Glucose [Mass/Vol] 111 mg/dL High 65-99 [facility] Comment on above: Performed By: #### C LENA, BMP ####[facility] ([id number])[address], [place] [address] Potassium [Moles/Vol] 3.6 mmol/L Normal 3.5-5.0 [facility] Comment on above: Performed By: #### C LENA, BMP ####[facility] ([id number])[address], [place] [address] Sodium [Moles/Vol] 136 mmol/L Normal 134-146 [facility] Comment on above: Performed By: #### C LENA, BMP ####[facility] ([id number])[address], [place] [address] Urea nitrogen [Mass/Vol] 34 mg/dL High 5-27 [facility] Comment on above: Performed By: #### C LENA, BMP ####[facility] ([id number])[address] [address] [place] [address] CBC AND AUTO DIFFon 08-30-19 25 ABSOLUTE BASOPHIL 0.0 X10E9/L Normal 0.0-0.2 [facility] Comment on above: Performed By: #### C LENA, BMP ####[facility] ([id number])[address] [address] [place] [address] ABSOLUTE NEUTROPHIL 4.6 X10E9/L Normal 1.5-6.6 [facility] Comment on above: Performed By: #### C LENA, BMP ####[facility] ([id number])[address] [address] Basophils/100 WBC (Bld) 0.6 % Normal [facility] Comment on above: Performed By: #### C LENA, BMP ####[facility] ([id number])[address] [address], [place] [address] Eosinophils (Bld) [#/Vol] 0.1 10*3/uL Normal 0.0-0.4 [facility] Comment on above: Performed By: #### C LENA, BMP ####[facility] ([id number])[address] [address], [place] [address] Eosinophils/100 WBC (Bld) 1.3 % Normal [facility] Comment on above: Performed By: #### C LENA, BMP ####[facility] ([id number])[address] [address] Erythrocyte distribution width (RBC) [Ratio] 18.5 % High 11.5-15.0 [facility] Comment on above: Performed By: #### C LENA, BMP ####[facility] ([id number])[address] [address] Hematocrit (Bld) [Volume fraction] 35.2 % Low 39-49 [facility] Comment on above: Performed By: #### C LENA, BMP ####[facility] ([id number])[address] [address] Hemoglobin (Bld) [Mass/Vol] 11.7 g/dL Low 13.0-17.0 [facility] Comment on above: Performed By: #### C LENA, BMP ####[facility] ([id number])[address] [address] [place] [address] Lymphocytes (Bld) [#/Vol] 1.7 10*3/uL Normal 1.0-3.5 [facility] Comment on above: Performed By: #### C BCA, BMP ####[facility] ([id number])[address] [address], [place] [address] Lymphocytes/100 WBC (Bld) 23.9 % Normal [facility] Comment on above: Performed By: #### C BCA, BMP ####[facility] ([id number])[address], [place] [address] MCH (RBC) [Entitic mass] 26.4 pg Low 27-34 [facility] Comment on above: Performed By: #### C BCA, BMP ####[facility] ([id number])[address], [place] [address] MCHC (RBC) [Mass/Vol] 33.3 g/dL Normal 32-36 [facility] Comment on above: Performed By: #### C BCA, BMP ####[facility] ([id number])[address], [place] [address] MCV (RBC) [Entitic vol] 79 fL Low 80-100 [facility] Comment on above: Performed By: #### C BCA, BMP ####[facility] ([id number])[address] [address], [place] [address] Monocytes (Bld) [#/Vol] 0.7 10*3/uL Normal 0-0.9 [facility] Comment on above: Performed By: #### C BCA, BMP ####[facility] ([id number])[address] [address], [place] [address] Monocytes/100 WBC (Bld) 9.9 % Normal [facility] Comment on above: Performed By: #### C BCA, BMP ####[facility] ([id number])[address] [address], [place] [address] Neutrophils/100 WBC (Bld) 64.3 % Normal [facility] Comment on above: Performed By: #### C BCA, BMP ####[facility] ([id number])[address] [address], [place] [address] Platelet mean volume (Bld) [Entitic vol] 8.0 fL Normal 7-12 [facility] Comment on above: Performed By: #### C LENA, BMP ####[facility] ([id number])[address] [place] [address] Platelets (Bld) [#/Vol] 136 10*3/uL Low 150-450 [facility] Comment on above: Performed By: #### C LENA, BMP ####[facility] ([id number])[address] [place] [address] RBC COUNT 4.43 X10E12/L Normal 4.10-5.70 [facility] Comment on above: Performed By: #### C LENA, BMP ####[facility] ([id number])[address] [place] [address] WBC (Bld) [#/Vol] 7.2 10*3/uL Normal 4.0-11.0 [facility] Comment on above: Performed By: #### C LENA, BMP ####[facility] ([id number])[address], [address] [address] [address] CHEST [address] CHEST WO CONT [facility] Glucose Glucometer (dC) [M ass/Vol]on 08-29-2024 Glucose [Mass/Vol] 210 mg/dL High 65-99 [facility] Glucose [Mass/Vol] 112 mg/dL High 65-99 [facility] Glucose [Mass/Vol] 225 mg/dL High 65-99 [facility] Glucose [Mass/Vol] 105 mg/dL High 65-99 [facility] XR CHEST 1 VWon 08-29-2024 XR CHEST 1 VW Normal [facility] BASIC METABOLIC PANLon 08-28 Anion gap [Moles/Vol] 10 mmol/L Normal 5-15 [facility] Comment on above: Performed By: #### C LENA, BMP ####[facility] ([id number])[address] [address], [place] [address] Calcium [Mass/Vol] 8.8 mg/dL Normal 8.5-10.5 [facility] Comment on above: Performed By: #### C BCA, BMP ####[facility] ([id number])[address], [address] [place] [address] Chloride [Moles/Vol] 101 mmol/L Normal 98-109 [facility] Comment on above: Performed By: #### C LENA, BMP ####[facility] ([id number])[address], [address], [place] [address] CO2 [Moles/Vol] 29 mmol/L Normal 22-32 [facility] Comment on above: Performed By: #### C LENA, BMP ####[facility] ([id number])[address] [address], [place] [address] Creatinine [Mass/Vol] 1.62 mg/dL High 0.60-1.30 [facility] Comment on above: Result Comment: METH OD TRACEABLE TO IDMS STANDARD Performed By: #### C LENA, BMP ####[facility] ([id number])[address] [address] GFR/1.73 sq M.predicted among non-blacks MDRD (S/P/Bld) [Vol rate/Area] 43 mL/min/{1.73_m2} Low >59 [facility] Comment on above: Result Comment: Repo rted eGFR is based on theCKD-EPI 2020 equation that doesnot use a race coefficient. Performed By: #### C BCA, BMP ####[facility] ([id number])[address] [address], [place] [address] Glucose [Mass/Vol] 116 mg/dL High 65-99 [facility] Comment on above: Performed By: #### C BCA, BMP ####[facility] ([id number])[address], [address], [place] [address] Potassium [Moles/Vol] 3.7 mmol/L Normal 3.5-5.0 [facility] Comment on above: Performed By: #### C BCA, BMP ####[facility] ([id number])[address], [address], [place] [address] Sodium [Moles/Vol] 140 mmol/L Normal 134-146 [facility] Comment on above: Performed By: #### C BCA, BMP ####[facility] ([id number])[address], [address], [place] [address] Urea nitrogen [Mass/Vol] 33 mg/dL High 5-27 [facility] Comment on above: Performed By: #### C LENA, BMP ####[facility] ([id number])[address], [address] [place] [address] CBC AND AUTO DIFFon 08-29-19 25 ABSOLUTE BASOPHIL 0.1 X10E9/L Normal 0.0-0.2 [facility] Comment on above: Performed By: #### C BCA, BMP ####[facility] ([id number])[address], [address], [place] [address] ABSOLUTE NEUTROPHIL 4.4 X10E9/L Normal 1.5-6.6 [facility] Comment on above: Performed By: #### C BCA, BMP ####[facility] ([id number])[address], [address] [place] [address] Basophils/100 WBC (Bld) 0.8 % Normal [facility] Comment on above: Performed By: #### C BCA, BMP ####[facility] ([id number])[address], [address], [place] [address] Eosinophils (Bld) [#/Vol] 0.1 10*3/uL Normal 0.0-0.4 [facility] Comment on above: Performed By: #### C LENA, BMP ####[facility] ([id number])[address] [address] Eosinophils/100 WBC (Bld) 1.8 % Normal [facility] Comment on above: Performed By: #### C LENA, BMP ####[facility] ([id number])[address] [address] Erythrocyte distribution width (RBC) [Ratio] 18.7 % High 11.5-15.0 [facility] Comment on above: Performed By: #### C LENA, BMP ####[facility] ([id number])[address] [address] Hematocrit (Bld) [Volume fraction] 34.2 % Low 39-49 [facility] Comment on above: Performed By: #### C LENA, BMP ####[facility] ([id number])[address] [address], [place] [address] Hemoglobin (Bld) [Mass/Vol] 11.4 g/dL Low 13.0-17.0 [facility] Comment on above: Performed By: #### C LENA, BMP ####[facility] ([id number])[address] [address] Lymphocytes (Bld) [#/Vol] 1.8 10*3/uL Normal 1.0-3.5 [facility] Comment on above: Performed By: #### C BCA, BMP ####[facility] ([id number])[address] [address] Lymphocytes/100 WBC (Bld) 25.5 % Normal [facility] Comment on above: Performed By: #### C BCA, BMP ####[facility] ([id number])[address], [address] [place] [address] MCH (RBC) [Entitic mass] 26.4 pg Low 27-34 [facility] Comment on above: Performed By: #### Nathalie PAREDES, BMP ####[facility] ([id number])[address], [address] [place] [address] MCHC (RBC) [Mass/Vol] 33.3 g/dL Normal 32-36 [facility] Comment on above: Performed By: #### C LENA, BMP ####[facility] ([id number])[address], [address], [place] [address] MCV (RBC) [Entitic vol] 79 fL Low 80-100 [facility] Comment on above: Performed By: #### Nathalie PAREDES, BMP ####[facility] ([id number])[address] [address], [place] [address] Monocytes (Bld) [#/Vol] 0.7 10*3/uL Normal 0-0.9 [facility] Comment on above: Performed By: #### Nathalie PAREDES, BMP ####[facility] ([id number])[address], [address], [place] [address] Monocytes/100 WBC (Bld) 9.9 % Normal [facility] Comment on above: Performed By: #### Nathalie PAREDES, BMP ####[facility] ([id number])[address] [address] [address] Neutrophils/100 WBC (Bld) 62.0 % Normal [facility] Comment on above: Performed By: #### Nathalie PAREDES, BMP ####[facility] ([id number])[address], [address] [place] [address] Platelet mean volume (Bld) [Entitic vol] 7.9 fL Normal 7-12 [facility] Comment on above: Performed By: #### C LENA, BMP ####[facility] ([id number])[address], [address] [place] [address] Platelets (Bld) [#/Vol] 115 10*3/uL Low 150-450 [facility] Comment on above: Performed By: #### Nathalie PAREDES, BMP ####[facility] ([id number])[address], [address] [place] [address] RBC COUNT 4.30 X10E12/L Normal 4.10-5.70 [facility] Comment on above: Performed By: #### Nathalie PAREDES, BMP ####[facility] ([id number])[address], [address] [place] [address] WBC (Bld) [#/Vol] 7.2 10*3/uL Normal 4.0-11.0 [facility] Comment on above: Performed By: #### Nathalie PAREDES, BMP ####[facility] ([id number])[address], [address] [place] [address] Glucose Glucometer (dC) [M ass/Vol]on 08-28-2024 Glucose [Mass/Vol] 176 mg/dL High 65-99 [facility] Glucose [Mass/Vol] 137 mg/dL High 65-99 [facility] Glucose [Mass/Vol] 213 mg/dL High 65-99 [facility] Glucose [Mass/Vol] 119 mg/dL High 65-99 [facility] XR CHEST 1 VWon 08-28-2024 XR CHEST 1 VW Normal [facility] BASIC METABOLIC PANLon 08-27 Anion gap [Moles/Vol] 8 mmol/L Normal 5-15 [facility] Comment on above: Performed By: #### GRACE Zelaya BCA, 12147-5, 2777-1 ####[facility] ([id number])[address], [address] [place] [address] Calcium [Mass/Vol] 8.7 mg/dL Normal 8.5-10.5 [facility] Comment on above: Performed By: #### C GRACE PAREDES, , 2776-06 ####[facility] ([id number])[address], [address], [place] [address] Chloride [Moles/Vol] 101 mmol/L Normal 98-109 [facility] Comment on above: Performed By: #### C GRACE PAREDES, , 2776-06 ####[facility] ([id number])[address], [address], [place] [address] CO2 [Moles/Vol] 28 mmol/L Normal 22-32 [facility] Comment on above: Performed By: #### C GRACE PAREDES, , 2776-06 ####[facility] ([id number])[address], [address], [place] [address] Creatinine [Mass/Vol] 1.69 mg/dL High 0.60-1.30 [facility] Comment on above: Result Comment: METH OD TRACEABLE TO IDMS STANDARD Performed By: #### C GRACE PAREDES, , 2776-06 ####[facility] ([id number])[address] [address], [place] [address] GFR/1.73 sq M.predicted among non-blacks MDRD (S/P/Bld) [Vol rate/Area] 41 mL/min/{1.73_m2} Low >59 [facility] Comment on above: Result Comment: Repo rted eGFR is based on theCKD-EPI 2020 equation that doesnot use a race coefficient. Performed By: #### C GRACE PAREDES, , 2776-06 ####[facility] ([id number])[address], [address], [place] [address] Glucose [Mass/Vol] 134 mg/dL High 65-99 [facility] Comment on above: Performed By: #### C GRACE PAREDES, , 2776-06 ####[facility] ([id number])[address], [address], [place] [address] Potassium [Moles/Vol] 3.7 mmol/L Normal 3.5-5.0 [facility] Comment on above: Performed By: #### C LENA, [facility], , 2776-06 ####[facility] ([id number])[address], [address], [place] [address] Sodium [Moles/Vol] 137 mmol/L Normal 134-146 [facility] Comment on above: Performed By: #### C LENA, [facility], , 2776-06 ####[facility] ([id number])[address], [address], [place] [address] Urea nitrogen [Mass/Vol] 35 mg/dL High 5-27 [facility] Comment on above: Performed By: #### C LENA, [facility], , 2776-06 ####[facility] ([id number])[address], [address], [place] [address] CBC AND AUTO DIFFon 08-28-19 25 ABSOLUTE BASOPHIL 0.1 X10E9/L Normal 0.0-0.2 [facility] Comment on above: Performed By: #### C LENA, BMP, , 2776-06 ####[facility] ([id number])[address], [address] [place] [address] ABSOLUTE NEUTROPHIL 5.5 X10E9/L Normal 1.5-6.6 [facility] Comment on above: Performed By: #### C LENA, BMP, , 2776-06 ####[facility] ([id number])[address], [address] [place] [address] Basophils/100 WBC (Bld) 1.0 % Normal [facility] Comment on above: Performed By: #### C LENA, BMP, , 2776-06 ####[facility] ([id number])[address] [address], [place] [address] Eosinophils (Bld) [#/Vol] 0.1 10*3/uL Normal 0.0-0.4 [facility] Comment on above: Performed By: #### C LENA, BMP, , 2776-06 ####[facility] ([id number])[address] [address], [place] [address] Eosinophils/100 WBC (Bld) 1.1 % Normal [facility] Comment on above: Performed By: #### C LENA, BMP, , 2776-06 ####[facility] ([id number])[address] [address] Erythrocyte distribution width (RBC) [Ratio] 18.1 % High 11.5-15.0 [facility] Comment on above: Performed By: #### C LENA, BMP, , 2776-06 ####[facility] ([id number])[address] [address] [place] [address] Hematocrit (Bld) [Volume fraction] 33.3 % Low 39-49 [facility] Comment on above: Performed By: #### C LENA, BMP, , 2776-06 ####[facility] ([id number])[address] [address], [place] [address] Hemoglobin (Bld) [Mass/Vol] 11.1 g/dL Low 13.0-17.0 [facility] Comment on above: Performed By: #### C BCA, BMP, , 2776-06 ####[facility] ([id number])[address] [address], [place] [address] Lymphocytes (Bld) [#/Vol] 1.3 10*3/uL Normal 1.0-3.5 [facility] Comment on above: Performed By: #### C LENA BMP, , 2776-06 ####[facility] ([id number])[address], [address] [place] [address] Lymphocytes/100 WBC (Bld) 16.9 % Normal [facility] Comment on above: Performed By: #### C LENA, BMP, , 2776-06 ####[facility] ([id number])[address], [address] [place] [address] MCH (RBC) [Entitic mass] 26.5 pg Low 27-34 [facility] Comment on above: Performed By: #### Nathalie PAREDES BMP, , 2776-06 ####[facility] ([id number])[address], [address] [address] MCHC (RBC) [Mass/Vol] 33.2 g/dL Normal 32-36 [facility] Comment on above: Performed By: #### Nathalie PAREDES, BMP, , 2776-06 ####[facility] ([id number])[address], [address] [address] MCV (RBC) [Entitic vol] 80 fL Normal 80-100 [facility] Comment on above: Performed By: #### C LENA, BMP, , 2776-06 ####[facility] ([id number])[address], [address] [address] Monocytes (Bld) [#/Vol] 0.7 10*3/uL Normal 0-0.9 [facility] Comment on above: Performed By: #### Nathalie PAREDES, BMP, , 2776-06 ####[facility] ([id number])[address], [address], [place] [address] Monocytes/100 WBC (Bld) 9.4 % Normal [facility] Comment on above: Performed By: #### C LENA, BMP, , 2776-06 ####[facility] ([id number])[address], [address], [place] [address] Neutrophils/100 WBC (Bld) 71.6 % Normal [facility] Comment on above: Performed By: #### C LENA, BMP, , 2776-06 ####[facility] ([id number])[address], [address], [place] [address] Platelet mean volume (Bld) [Entitic vol] 8.2 fL Normal 7-12 [facility] Comment on above: Performed By: #### Nathalie PAREDES, BMP, , 2776-06 ####[facility] ([id number])[address], [address], [place] [address] Platelets (Bld) [#/Vol] 106 10*3/uL Low 150-450 [facility] Comment on above: Performed By: #### Nathalie PAREDES, BMP, , 2776-06 ####[facility] ([id number])[address], [address] [address] RBC COUNT 4.18 X10E12/L Normal 4.10-5.70 [facility] Comment on above: Performed By: #### Nathalie BCA, BMP, , 2776-06 ####[facility] ([id number])[address], [address] [address] WBC (Bld) [#/Vol] 7.7 10*3/uL Normal 4.0-11.0 [facility] Comment on above: Performed By: #### C LENA, BMP, , 2776-06 ####[facility] ([id number])[address], [address] [place] [address] Calcium.ionized (Bld) [Mass/ Vol]on 08-27-2024 IONIZED CALCIUM 4.7 mg/dL Normal 4.5-5.3 [facility] Comment on above: Performed By: #### 3 8230-9 ####[facility] ([id number])[address] [address] Glucose Glucometer (BldC) [M ass/Vol]on 08-27-2024 Glucose [Mass/Vol] 110 mg/dL High 65-99 [facility] Glucose [Mass/Vol] 148 mg/dL High 65-99 [facility] Glucose [Mass/Vol] 141 mg/dL High 65-99 [facility] HGBon 08-27-2024 Hematocrit (Bld) [Volume fraction] 35.1 % Low 39-49 [facility] Comment on above: Performed By: #### H H ####[facility] ([id number])[address] [address] Hemoglobin (Bld) [Mass/Vol] 11.7 g/dL Low 13.0-17.0 [facility] Comment on above: Performed By: #### H H ####[facility] ([id number])[address] [address] MAGNESIUMon 08-27-2024 Magnesium [Mass/Vol] 2.0 mg/dL Normal 1.8-2.6 [facility] Comment on above: Performed By: #### C LENA, BMP, [address]-6, 2777-1 ####[facility] ([id number])[address] [address] PHOSPHORUSon 08-27-2024 Phosphate [Mass/Vol] 3.9 mg/dL Normal 2.4-4.9 [facility] Comment on above: Performed By: #### C BCA, BMP, , 2777-1 ####[facility] ([id number])[address], [address], [place] [address] POTASSIUMon 08-27-2024 Potassium [Moles/Vol] 3.8 mmol/L Normal 3.5-5.0 [facility] Comment on above: Performed By: #### 2 823-3 ####[facility] ([id number])[address], [address], [place] [address] XR CHEST 1 VWon 08-27-2024 XR CHEST 1 VW Normal [facility] BASIC METABOLIC PANLon 08-26 Anion gap [Moles/Vol] 7 mmol/L Normal 5-15 [facility] Comment on above: Performed By: #### C BCA, BMP, , 2776-06 ####[facility] ([id number])[address], [address], [place] [address] Calcium [Mass/Vol] 9.3 mg/dL Normal 8.5-10.5 [facility] Comment on above: Performed By: #### C BCA, BMP, , 2776-06 ####[facility] ([id number])[address], [address], [place] [address] Chloride [Moles/Vol] 103 mmol/L Normal 98-109 [facility] Comment on above: Performed By: #### C BCA, BMP, , 2776-06 ####[facility] ([id number])[address], [address], [place] [address] CO2 [Moles/Vol] 29 mmol/L Normal 22-32 [facility] Comment on above: Performed By: #### C BCA, BMP, , 2776-06 ####[facility] ([id number])[address], [place] [address] Creatinine [Mass/Vol] 1.61 mg/dL High 0.60-1.30 [facility] Comment on above: Result Comment: METH OD TRACEABLE TO IDMS STANDARD Performed By: #### C GRACE PAREDES, , 2776-06 ####[facility] ([id number])[address], [address], [place] [address] GFR/1.73 sq M.predicted among non-blacks MDRD (S/P/Bld) [Vol rate/Area] 43 mL/min/{1.73_m2} Low >59 [facility] Comment on above: Result Comment: Repo rted eGFR is based on theCKD-EPI 2020 equation that doesnot use a race coefficient. Performed By: #### C GRACE PAREDES, , 2776-06 ####[facility] ([id number])[address] [address] [place] [address] Glucose [Mass/Vol] 124 mg/dL High 65-99 [facility] Comment on above: Performed By: #### C GRACE PAREDES, , 2776-06 ####[facility] ([id number])[address] [address] Potassium [Moles/Vol] 4.2 mmol/L Normal 3.5-5.0 [facility] Comment on above: Performed By: #### C GRACE PAREDES, , 2776-06 ####[facility] ([id number])[address] [address] [place] [address] Sodium [Moles/Vol] 139 mmol/L Normal 134-146 [facility] Comment on above: Performed By: #### C GRACE PAREDES, , 2776-06 ####[facility] ([id number])[address] [address], [place] [address] Urea nitrogen [Mass/Vol] 37 mg/dL High 5-27 [facility] Comment on above: Performed By: #### C GRACE PAREDES, , 2776-06 ####[facility] ([id number])[address], [address], [place] [address] CBC AND AUTO DIFFon 08-27-19 25 Eosinophils (Bld) [#/Vol] 0.1 10*3/uL Normal 0.0-0.4 [facility] Comment on above: Performed By: #### C LENA, BMP, , 2776-06 ####[facility] ([id number])[address], [address], [place] [address] Eosinophils/100 WBC (Bld) 1.0 % Normal [facility] Comment on above: Performed By: #### C LENA, [facility], , 2776-06 ####[facility] ([id number])[address] [address] Erythrocyte distribution width (RBC) [Ratio] 18.5 % High 11.5-15.0 [facility] Comment on above: Performed By: #### C LENA, [facility], , 2776-06 ####[facility] ([id number])[address] [address] Hematocrit (Bld) [Volume fraction] 34.9 % Low 39-49 [facility] Comment on above: Performed By: #### C LENA, BMP, , 2776-06 ####[facility] ([id number])[address] [address] [place] [address] Hemoglobin (Bld) [Mass/Vol] 11.6 g/dL Low 13.0-17.0 [facility] Comment on above: Performed By: #### C LENA, BMP, , 2776-06 ####[facility] ([id number])[address] [address] Lymphocytes (Bld) [#/Vol] 1.6 10*3/uL Normal 1.0-3.5 [facility] Comment on above: Performed By: #### C GRACE PAREDES, , 2776-06 ####[facility] ([id number])[address], [place] [address] Lymphocytes/100 WBC (Bld) 22.0 % Normal [facility] Comment on above: Performed By: #### C GRACE PAREDES, , 2776-06 ####[facility] ([id number])[address], [place] [address] MCH (RBC) [Entitic mass] 26.5 pg Low 27-34 [facility] Comment on above: Performed By: #### GRACE Zelaya BCA, , 2776-06 ####[facility] ([id number])[address], [address] [place] [address] MCHC (RBC) [Mass/Vol] 33.3 g/dL Normal 32-36 [facility] Comment on above: Performed By: #### GRACE Zelaya BCA, , 2776-06 ####[facility] ([id number])[address] [address] [place] [address] MCV (RBC) [Entitic vol] 80 fL Normal 80-100 [facility] Comment on above: Performed By: #### GRACE Zelaya BCA, , 2776-06 ####[facility] ([id number])[address] [address] [place] [address] Monocytes (Bld) [#/Vol] 0.9 10*3/uL Normal 0-0.9 [facility] Comment on above: Performed By: #### Nathalie PAREDES, BMP, , 2776-06 ####[facility] ([id number])[address] [address] [place] [address] Monocytes/100 WBC (Bld) 12.0 % Normal [facility] Comment on above: Performed By: #### Nathalie PAREDES, BMP, , 2776-06 ####[facility] ([id number])[address] [address] [place] [address] Neutrophils (Bld) [#/Vol] 4.9 10*3/uL Normal 1.5-6.6 [facility] Comment on above: Performed By: #### Nathalie PAREDES, BMP, , 2776-06 ####[facility] ([id number])[address] [address] [place] [address] OVALOCYTE 1+ Abnormal NONE [facility] [facility] Comment on above: Performed By: #### Nathalie PAREDES, BMP, , 2776-06 ####[facility] ([id number])[address], [address] [place] [address]28 Platelet mean volume (Bld) [Entitic vol] 8.2 fL Normal 7-12 [facility] Comment on above: Performed By: #### Nathalie PAREDES, [facility], , 2776-06 ####[facility] ([id number])[address] [address] [place] [address] Platelets (Bld) [#/Vol] 115 10*3/uL Low 150-450 [facility] Comment on above: Performed By: #### Nathalie PAREDES BMP, , 2776-06 ####[facility] ([id number])[address] [address] [place] [address] 95307 RBC COUNT 4.38 X10E12/L Normal 4.10-5.70 [facility] Comment on above: Performed By: #### Nathalie PAREDES, BMP, , 2776-06 ####[facility] ([id number])[address] [address] SEG NEUTROPHIL 65.0 % Normal [facility] Comment on above: Performed By: #### C BCA, BMP, 77241-8, 2777-1 ####[facility] ([id number])[address], [address] [place] [address]39 WBC (Bld) [#/Vol] 7.5 10*3/uL Normal 4.0-11.0 [facility] Comment on above: Performed By: #### C BCA, BMP, , 2776-06 ####[facility] ([id number])[address], [address] [place] [address] Calcium.ionized (Bld) [Mass/ Vol]on 08-26-2024 IONIZED CALCIUM 4.7 mg/dL Normal 4.5-5.3 [facility] Comment on above: Performed By: #### 3 8230-9 ####[facility] ([id number])[address], [address] [place] [address] 27296 Glucose Glucometer (BldC) [M ass/Vol]on 08-26-2024 Glucose [Mass/Vol] 209 mg/dL High 65-99 [facility] Glucose [Mass/Vol] 198 mg/dL High 65-99 [facility] Glucose [Mass/Vol] 227 mg/dL High 65-99 [facility] Glucose [Mass/Vol] 128 mg/dL High 65-99 [facility] HGBon 08-26-2024 Hematocrit (Bld) [Volume fraction] 36.3 % Low 39-49 [facility] Comment on above: Performed By: #### H H ####[facility] ([id number])[address], [address] [place] [address]64 Hemoglobin (Bld) [Mass/Vol] 12.0 g/dL Low 13.0-17.0 [facility] Comment on above: Performed By: #### H H ####[facility] ([id number])[address], [address], [place] [address] MAGNESIUMon 08-26-2024 Magnesium [Mass/Vol] 2.2 mg/dL Normal 1.8-2.6 [facility] Comment on above: Performed By: #### C BCA, BMP, , 2776-06 ####[facility] ([id number])[address], [address], [place] [address] PHOSPHORUSon 08-26-2024 Phosphate [Mass/Vol] 4.5 mg/dL Normal 2.4-4.9 [facility] Comment on above: Performed By: #### C BCA, BMP, , 2776-06 ####[facility] ([id number])[address], [address], [place] [address] XR CHEST 1 VWon 08-26-2024 XR CHEST 1 VW Normal [facility] BASIC METABOLIC PANLon 08-25 Anion gap [Moles/Vol] 12 mmol/L Normal 5-15 [facility] Comment on above: Performed By: #### C BCA, 03464-2, PINR, 31164-9, BMP, , 2776-06, HA1C ####[facility] ([id number])[address], [address], [place] [address] Calcium [Mass/Vol] 9.3 mg/dL Normal 8.5-10.5 [facility] Comment on above: Performed By: #### C BCA, 52923-9, PINR, 11468-1, BMP, , 2776-06, HA1C ####[facility] ([id number])[address], [address], [place] [address] Chloride [Moles/Vol] 102 mmol/L Normal 98-109 [facility] Comment on above: Performed By: #### C BCA, 56250-4, PINR, 61465-2, BMP, , 2776-06, HA1C ####[facility] ([id number])[address], [address] [place] [address] CO2 [Moles/Vol] 29 mmol/L Normal 22-32 [facility] Comment on above: Performed By: #### C BCA, 70273-1, PINR, 74335-6, BMP, 99076-1, 7-1, HA1C ####[facility] ([id number])[address], [address] [address] Creatinine [Mass/Vol] 1.74 mg/dL High 0.60-1.30 [facility] Comment on above: Result Comment: METH OD TRACEABLE TO IDMS STANDARD Performed By: #### C BCA, 43106-4, PINR, 52308-9, BMP, 24510-7, 2776-, HA1C ####[facility] ([id number])[address] [address] [place] [address] GFR/1.73 sq M.predicted among non-blacks MDRD (S/P/Bld) [Vol rate/Area] 39 mL/min/{1.73_m2} Low >59 [facility] Comment on above: Result Comment: Repo rted eGFR is based on theCKD-EPI 2020 equation that doesnot use a race coefficient. Performed By: #### C BCA, 73567-8, PINR, 07656-9, BMP, 64330-4, 2776-, HA1C ####[facility] ([id number])[address] [address] [place] [address] Glucose [Mass/Vol] 122 mg/dL High 65-99 [facility] Comment on above: Performed By: #### C BCA, 10465-0, PINR, 95468-1, BMP, 54627-4, 7-1, HA1C ####[facility] ([id number])[address], [address] [address] Potassium [Moles/Vol] 4.1 mmol/L Normal 3.5-5.0 [facility] Comment on above: Performed By: #### C BCA, 04778-7, PINR, 61117-3, BMP, 74124-1, 2777-1, HA1C ####[facility] ([id number])[address], [address], [place] [address] Sodium [Moles/Vol] 143 mmol/L Normal 134-146 [facility] Comment on above: Performed By: #### C BCA, 59495-7, PINR, 98595-8, BMP, 41529-9, 2777-1, HA1C ####[facility] ([id number])[address], [address] [place] [address] Urea nitrogen [Mass/Vol] 46 mg/dL High 5-27 [facility] Comment on above: Performed By: #### C BCA, 71185-8, PINR, 69303-5, BMP, 88348-2, 2777-1, HA1C ####[facility] ([id number])[address], [address] [place] [address] CBC AND AUTO DIFFon 08-26-19 25 ABSOLUTE BASOPHIL 0.1 X10E9/L Normal 0.0-0.2 [facility] Comment on above: Performed By: #### C BCA, 60192-0, PINR, 99855-1, BMP, 33801-8, 2777-1, HA1C ####[facility] ([id number])[address], [address] [place] [address] ABSOLUTE NEUTROPHIL 5.7 X10E9/L Normal 1.5-6.6 [facility] Comment on above: Performed By: #### C BCA, 99617-2, PINR, 30726-1, BMP, 71529-3, 2777-1, HA1C ####[facility] ([id number])[address], [address] [place] [address] 86591 Basophils/100 WBC (Bld) 1.0 % Normal [facility] Comment on above: Performed By: #### C BCA, 37051-9, PINR, 31607-6, BMP, 87806-8, 2777-1, HA1C ####[facility] ([id number])[address] [address] [place] [address] 71847 Eosinophils (Bld) [#/Vol] 0.0 10*3/uL Normal 0.0-0.4 [facility] Comment on above: Performed By: #### C BCA, 30554-3, PINR, 95571-3, BMP, 87367-5, 2777-1, HA1C ####[facility] ([id number])[address] [address], [place] [address] Eosinophils/100 WBC (Bld) 0.5 % Normal [facility] Comment on above: Performed By: #### C BCA, 63885-0, PINR, 51274-6, BMP, 87522-6, 7-, HA1C ####[facility] ([id number])[address] [address] [place] [address] Erythrocyte distribution width (RBC) [Ratio] 18.6 % High 11.5-15.0 [facility] Comment on above: Performed By: #### C BCA, 50443-6, PINR, 34526-6, BMP, 79605-7, 2777-, HA1C ####[facility] ([id number])[address] [address], [place] [address] Hematocrit (Bld) [Volume fraction] 35.6 % Low 39-49 [facility] Comment on above: Performed By: #### C BCA, 77781-1, PINR, 02009-3, BMP, 54852-2, 2777-1, HA1C ####[facility] ([id number])[address] [address] Hemoglobin (Bld) [Mass/Vol] 11.6 g/dL Low 13.0-17.0 [facility] Comment on above: Performed By: #### C BCA, 20281-8, PINR, 03106-8, BMP, 43011-4, 2777-1, HA1C ####[facility] ([id number])[address] [address] [place] [address]5987 Lymphocytes (Bld) [#/Vol] 1.0 10*3/uL Normal 1.0-3.5 [facility] Comment on above: Performed By: #### C BCA, 52739-4, PINR, 41882-3, BMP, 56047-2, 2777-1, HA1C ####[facility] ([id number])[address] [address] Lymphocytes/100 WBC (Bld) 13.3 % Normal [facility] Comment on above: Performed By: #### C BCA, 84031-0, PINR, 59708-9, BMP, 22867-0, 2777-1, HA1C ####[facility] ([id number])[address] [address] [place] [address] 46806 MCH (RBC) [Entitic mass] 26.0 pg Low 27-34 [facility] Comment on above: Performed By: #### C BCA, 96445-0, PINR, 95807-7, BMP, 95609-5, 2777-1, HA1C ####[facility] ([id number])[address] [address] [place] [address]041 MCHC (RBC) [Mass/Vol] 32.6 g/dL Normal 32-36 [facility] Comment on above: Performed By: #### C BCA, 27728-8, PINR, 79132-4, BMP, 49350-2, 2777-1, HA1C ####[facility] ([id number])[address], [address] [place] [address] MCV (RBC) [Entitic vol] 80 fL Normal 80-100 [facility] Comment on above: Performed By: #### C BCA, 13755-9, PINR, 49762-9, BMP, 95737-9, 2777-1, HA1C ####[facility] ([id number])[address], [address] [place] [address] 90083 Monocytes (Bld) [#/Vol] 0.7 10*3/uL Normal 0-0.9 [facility] Comment on above: Performed By: #### C BCA, 53255-5, PINR, 44883-8, BMP, 26049-5, 2777-1, HA1C ####[facility] ([id number])[address], [address] [place] [address] 55469 Monocytes/100 WBC (Bld) 9.3 % Normal [facility] Comment on above: Performed By: #### C BCA, 45831-6, PINR, 64837-5, BMP, 56843-5, 2777-1, HA1C ####[facility] ([id number])[address] [address] [place] [address] 11680 Neutrophils/100 WBC (Bld) 75.9 % Normal [facility] Comment on above: Performed By: #### C BCA, 70508-2, PINR, 41573-8, BMP, 96289-2, 2777-1, HA1C ####[facility] ([id number])[address], [address] [place] [address] 68686 Platelet mean volume (Bld) [Entitic vol] 9.0 fL Normal 7-12 [facility] Comment on above: Performed By: #### C BCA, 51463-4, PINR, 26981-5, BMP, 09911-9, 2777-1, HA1C ####[facility] ([id number])[address], [address] [place] [address] 49296 Platelets (Bld) [#/Vol] 123 10*3/uL Low 150-450 [facility] Comment on above: Performed By: #### C BCA, 53427-7, PINR, 07889-6, BMP, 91846-7, 2777-1, HA1C ####[facility] ([id number])[address], [address] [place] [address] 97454 RBC COUNT 4.47 X10E12/L Normal 4.10-5.70 [facility] Comment on above: Performed By: #### C BCA, 98653-6, PINR, 57886-9, BMP, 87697-5, 2777-1, HA1C ####[facility] ([id number])[address], [address] [place] [address] 45173 WBC (Bld) [#/Vol] 7.4 10*3/uL Normal 4.0-11.0 [facility] Comment on above: Performed By: #### C BCA, 05319-1, PINR, 77917-4, BMP, 10118-1, 2777-1, HA1C ####[facility] ([id number])[address], [address] [place] [address] 08772 Calcium.ionized (Bld) [Mass/ Vol]on 08-25-2024 IONIZED CALCIUM 4.8 mg/dL Normal 4.5-5.3 [facility] Comment on above: Performed By: #### 3 8230-9 ####[facility] ([id number])[address], [address] [place] [address] DRUG SCREEN, URINEon 025 AMPHETAMINE/METHAMP Negative Normal NEG [facility] Comment on above: Result Comment: AMPH /METH screening cut off = 1000 ng/mL Performed By: #### D RAMOS ####[facility] ([id number])[address], [address] [place] [address] 37763 BARBITURATES Negative Normal NEG [facility] Comment on above: Result Comment: Grace iturates screening cut off value = 200 ng/mL Performed By: #### D RAMOS ####[facility] ([id number])[address], [address] [place] [address] 63507 BENZODIAZEPINES Negative Normal [facility] Comment on above: Result Comment: Waqas odiazepines screening cut off value = 200 ng/mL Performed By: #### D RAMOS ####[facility] ([id number])[address], [address], [place] [address] CANNABINOIDS Negative Normal [facility] Comment on above: Result Comment: Nathan abinoids/THC screening cut off value = 50 ng/mL Performed By: #### D RAMOS ####[facility] ([id number])[address], [address] [place] [address] 31769 COCAINE METABOLITE Negative Normal NEG [facility] Comment on above: Result Comment: Coca ine screening cut off value = 300 ng/mL Performed By: #### D RAMOS ####[facility] ([id number])[address], [address] [place] [address] 84937 ECSTASY Negative Normal [facility] Comment on above: Result Comment: Ecst asy screening cut off value = 500 ng/mLThis report is intended for use in clinicalmonitoring or management of patients. Performed By: #### D RAMOS ####[facility] ([id number])[address], [place] [address] METHADONE Negative Normal [facility] Comment on above: Result Comment: Meth adone screening cut off value = 300 ng/mL. Performed By: #### D RAMOS ####[facility] ([id number])[address], [address] [place] [address], [place] [address] OPIATES Negative Normal NEG [facility] Comment on above: Result Comment: Opia steve screening cut off value = 300 ng/mLNOTE:This test is used for the detection ofcodeine, hydrocodone (>1000 ng/mL), morphineand hydromorphone (>900 ng/mL) in urine. Performed By: #### D RAMOS ####[facility] ([id number])[address] [address] OXYCODONE Negative Normal NEG [facility] Comment on above: Result Comment: Oxyc odone screening cut off value = 300 ng/mLNOTE:This test is used for the detection ofoxycodone and oxymorphone in urine. Performed By: #### D RAMOS ####[facility] ([id number])[address] [address] PHENCYCLIDINE Negative Normal NEG [facility] Comment on above: Result Comment: Phen cyclidine screening cut off value = 25 ng/mL Performed By: #### D RAMOS ####[facility] ([id number])[address] [address] Fibrinogen Coagulation.deriv ed (PPP) [Mass/Vol]on 08-25-2024 FIBRINOGEN 481 mg/dL High 190-480 [facility] Comment on above: Performed By: #### C BCA, 40840-8, PINR, 76397-2, BMP, 40071-5, 2777-1, HA1C ####[facility] ([id number])[address] [address] Glucose Glucometer (BldC) [M ass/Vol]on 08-25-2024 Glucose [Mass/Vol] 187 mg/dL High 65-99 [facility] Glucose [Mass/Vol] 145 mg/dL High 65-99 [facility] Glucose [Mass/Vol] 131 mg/dL High 65-99 [facility] Glucose [Mass/Vol] 111 mg/dL High 65-99 [facility] HGBon 08-25-2024 Hematocrit (Bld) [Volume fraction] 34.8 % Low 39-49 [facility] Comment on above: Performed By: #### H H ####[facility] ([id number])[address] [address] Hemoglobin (Bld) [Mass/Vol] 11.4 g/dL Low 13.0-17.0 [facility] Comment on above: Performed By: #### H H ####[facility] ([id number])[address] [facility] [address] [address] HGB A1C (GLYCO-HGB)on 2024 Glucose [Mass/Vol] 183 mg/dL Normal [facility] Comment on above: Performed By: #### C BCA, 70761-2, PINR, 14136-3, BMP, 28263-1, 2776-1, HA1C ####[facility] ([id number])[address] [address] HbA1c (Bld) [Mass fraction] 8.0 % High 4.4-5.6 [facility] Comment on above: Result Comment: NOTE ADA Guidelines Result HgbA1c Normal : less than 5.7 % Prediabetes : 5.7 % to 6.4 % Diabetes : > 6.4 %Use with caution in patients with abnormal hemoglobin variants asthe half-life of red blood cells and in vivo glycation rates areaffected. Performed By: #### C BCA, 37355-5, PINR, 40202-1, BMP, 62405-2, 2776-1, HA1C ####[facility] ([id number])[address] [address] MAGNESIUMon 08-25-2024 Magnesium [Mass/Vol] 2.1 mg/dL Normal 1.8-2.6 [facility] Comment on above: Performed By: #### C BCA, 22869-8, PINR, 99351-9, BMP, 15274-5, 2777-1, HA1C ####[facility] ([id number])[address], [place] [address] PHOSPHORUSon 08-25-2024 Phosphate [Mass/Vol] 5.8 mg/dL High 2.4-4.9 [facility] Comment on above: Performed By: #### C BCA, 69064-7, PINR, 41283-4, BMP, 20582-1, 2776-, HA1C ####[facility] ([id number])[address], [address] [place] [address] PROTIME AND INRon 08-25-2024 INR Coag (PPP) [Relative time] 1.4 {INR} High 0.9-1.2 [facility] Comment on above: Performed By: #### C BCA, 72384-2, PINR, 66631-3, BMP, 39209-1, 2776-06, HA1C ####[facility] ([id number])[address], [address] [place] [address] PT Coag (PPP) [Time] 15.4 s High 9.8-13.2 [facility] Comment on above: Performed By: #### C BCA, 93615-2, PINR, 78924-9, BMP, , 2776-, HA1C ####[facility] ([id number])[address], [address] [place] [address], [place] [address] URINALYSISon 08-25-2024 Bilirubin Ql (U) Negative Normal NEG [facility] Comment on above: Performed By: #### U A ####[facility] ([id number])[address] [address] [place] [address]69 BLOOD/HGB Negative Normal NEG [facility] Comment on above: Performed By: #### U A ####[facility] ([id number])[address], [place] [address] Color (U) YELLOW Normal YELLOW [facility] Comment on above: Performed By: #### U A ####[facility] ([id number])[address], [address], [place] [address] Glucose Ql (U) >1000 Abnormal NEG [facility] Comment on above: Performed By: #### U A ####[facility] ([id number])[address], [address], [place] [address] Ketones Ql (U) Negative Normal NEG [facility] Comment on above: Performed By: #### U A ####[facility] ([id number])[address], [place] [address] Leukocyte esterase Test strip Ql (U) Negative Normal NEG [facility] Comment on above: Result Comment: HIGH CONCENTRATIONS OF GLUCOSE MAY DECREASE THE REACTIVITY OF THE DIPSTICK LEUKOCYTE TEST PAD. Performed By: #### U A ####[facility] ([id number])[address], [place] [address] Nitrite Ql (U) Negative Normal NEG [facility] Comment on above: Performed By: #### U A ####[facility] ([id number])[address], [place] [address] pH (U) 5.5 [pH] Normal 5.0-8.5 [facility] Comment on above: Performed By: #### U A ####[facility] ([id number])[address], [place] [address] Protein Ql (U) Negative Normal NEG [facility] Comment on above: Performed By: #### U A ####[facility] ([id number])[address], [place] [address] Specific gravity (U) [Rel density] 1.027 Normal 1.003-1.035 [facility] Comment on above: Performed By: #### U A ####[facility] ([id number])[address], [address] [place] [address] TURBIDITY CLEAR Normal CLEAR [facility] Comment on above: Performed By: #### U A ####[facility] ([id number])[address], [address] [place] [address] Urinalysis dipstick W Reflex Microscopic panel (U) URINE RECEIVED WITHOUT PRESERVATIVE-DELAYS IN TRANSPORT MAY AFFECT RESULTS.INTERPRET WITH CAUTION AND CLINICAL CORRELATION IS RECOMMENDED. Normal [facility] Comment on above: Performed By: #### U A ####[facility] ([id number])[address] [place] [address]646 Urobilinogen (U) [Mass/Vol] mg/dL Normal <1.1 [facility] Comment on above: Performed By: #### U A ####[facility] ([id number])[address], [address] [place] [address] 20555 XR CHEST 1 VWon 08-25-2024 XR CHEST 1 VW Normal [facility] aPTT Coag (PPP) [Time]on aPTT Coag (Bld) [Time] 30 s Normal 26-37 [facility] Comment on above: Performed By: #### C BCA, 82763-8, PINR, 15293-2, BMP, 26449-1, 2777-1, HA1C ####[facility] ([id number])[address] [place] [address] 21263 AMYLASEon 08-24-2024 Amylase [Catalytic activity/Vol] 60 U/L Normal 28-100 [facility] Comment on above: Performed By: #### C BCA, 21112-7, PINR, 26655-1, 1798-8, CMP, 3040-3, 5643-2 ####[facility] ([id number])[address], [address] [place] [address]10 CBC AND AUTO DIFFon 08-25-19 25 ABSOLUTE BASOPHIL 0.1 X10E9/L Normal 0.0-0.2 [facility] Comment on above: Performed By: #### C BCA, 32067-6, PINR, 88437-3, 1798-8, CMP, 3040-3, 5643-2 ####[facility] ([id number])[address] [place] [address] 78806 ABSOLUTE NEUTROPHIL 7.7 X10E9/L High 1.5-6.6 [facility] Comment on above: Performed By: #### C BCA, 35562-1, PINR, 06377-7, 1798-8, CMP, 3040-3, 5643-2 ####[facility] ([id number])[address] [address] [place] [address] 28427 Basophils/100 WBC (Bld) 0.7 % Normal [facility] Comment on above: Performed By: #### C BCA, 98191-8, PINR, 10531-3, 1798-8, CMP, 3040-3, 5643-2 ####[facility] ([id number])[address] [address] [place] [address] 04629 Eosinophils (Bld) [#/Vol] 0.1 10*3/uL Normal 0.0-0.4 [facility] Comment on above: Performed By: #### C BCA, 99667-2, PINR, 35568-6, 1798-8, CMP, 3040-3, 5643-2 ####[facility] ([id number])[address] [address] [place] [address] [address] Eosinophils/100 WBC (Bld) 0.7 % Normal [facility] Comment on above: Performed By: #### C BCA, 87857-6, PINR, 44996-5, 1798-8, CMP, 3040-3, 5643-2 ####[facility] ([id number])[address], [address], [place] [address] Erythrocyte distribution width (RBC) [Ratio] 18.0 % High 11.5-15.0 [facility] Comment on above: Performed By: #### C BCA, 44272-7, PINR, 69291-2, 1798-8, CMP, 3040-3, 5643-2 ####[facility] ([id number])[address], [address] [place] [address] Hematocrit (Bld) [Volume fraction] 35.6 % Low 39-49 [facility] Comment on above: Performed By: #### C BCA, 13650-0, PINR, 67063-7, 1797-8, CMP, 3040-3, 5643-2 ####[facility] ([id number])[address] [address] [place] [address]23 Hemoglobin (Bld) [Mass/Vol] 12.0 g/dL Low 13.0-17.0 [facility] Comment on above: Performed By: #### C BCA, 55016-3, PINR, 29748-9, 1797-8, CMP, 3040-3, 5643-2 ####[facility] ([id number])[address] [address] [place] [address]258 Lymphocytes (Bld) [#/Vol] 1.1 10*3/uL Normal 1.0-3.5 [facility] Comment on above: Performed By: #### C BCA, 85306-2, PINR, 04632-8, 1798-8, CMP, 3040-3, 5643-2 ####[facility] ([id number])[address] [address] [place] [address] 01655 Lymphocytes/100 WBC (Bld) 11.5 % Normal [facility] Comment on above: Performed By: #### C BCA, 50002-7, PINR, 35243-6, 8-8, CMP, 3040-3, 5643-2 ####[facility] ([id number])[address] [address] [place] [address]302 MCH (RBC) [Entitic mass] 26.7 pg Low 27-34 [facility] Comment on above: Performed By: #### C BCA, 15445-5, PINR, 04828-4, 1797-8, CMP, 3040-3, 5643-2 ####[facility] ([id number])[address], [address] [place] [address] 87060 MCHC (RBC) [Mass/Vol] 33.8 g/dL Normal 32-36 [facility] Comment on above: Performed By: #### C BCA, 40028-6, PINR, 61858-5, 1797-8, CMP, 3040-3, 5643-2 ####[facility] ([id number])[address] [address] [place] [address] 05526 MCV (RBC) [Entitic vol] 79 fL Low 80-100 [facility] Comment on above: Performed By: #### C BCA, 90700-1, PINR, 57852-3, 1797-8, CMP, 3040-3, 5643-2 ####[facility] ([id number])[address] [address] [place] [address] 75593 Monocytes (Bld) [#/Vol] 1.0 10*3/uL High 0-0.9 [facility] Comment on above: Performed By: #### C BCA, 98586-7, PINR, 94666-4, 8-8, CMP, 3040-3, 5643-2 ####[facility] ([id number])[address] [address] [place] [address] 27214 Monocytes/100 WBC (Bld) 9.9 % Normal [facility] Comment on above: Performed By: #### C BCA, 83951-2, PINR, 13414-8, 1798-8, CMP, 3040-3, 5643-2 ####[facility] ([id number])[address], [address], [place] [address] Neutrophils/100 WBC (Bld) 77.2 % Normal [facility] Comment on above: Performed By: #### C BCA, 00220-8, PINR, 63522-5, 1798-8, CMP, 3040-3, 5643-2 ####[facility] ([id number])[address], [address], [place] [address] Platelet mean volume (Bld) [Entitic vol] 8.1 fL Normal 7-12 [facility] Comment on above: Performed By: #### C BCA, 87812-8, PINR, 17926-0, 1798-8, CMP, 3040-3, 5643-2 ####[facility] ([id number])[address] [address], [place] [address] Platelets (Bld) [#/Vol] 126 10*3/uL Low 150-450 [facility] Comment on above: Performed By: #### C BCA, 90552-8, PINR, 07243-6, 1798-8, CMP, 3040-3, 5643-2 ####[facility] ([id number])[address], [address] [place] [address], [place] [address] RBC COUNT 4.50 X10E12/L Normal 4.10-5.70 [facility] Comment on above: Performed By: #### C BCA, 97851-6, PINR, 04789-4, 1798-8, CMP, 3040-3, 5643-2 ####[facility] ([id number])[address], [address], [place] [address] WBC (Bld) [#/Vol] 10.0 10*3/uL Normal 4.0-11.0 [facility] Comment on above: Performed By: #### C BCA, 18110-8, PINR, 34101-8, 1798-8, CMP, 3040-3, 5643-2 ####[facility] ([id number])[address] [facility], [place] [address] ABSOLUTE BASOPHIL 0.1 X10E9/L Normal 0.0-0.2 [facility] Comment on above: Performed By: #### 3 040-3, CMP, 74557-2, 52502-8, CBCA, PINR ####[facility] ([id number])[address] [place] [address] ABSOLUTE NEUTROPHIL 6.8 X10E9/L High 1.5-6.6 [facility] Comment on above: Performed By: #### 3 040-3, CMP, 80660-0, 05311-5, CBCA, PINR ####[facility] ([id number])[address] [place] [address] 45247 Basophils/100 WBC (Bld) 0.9 % Normal [facility] Comment on above: Performed By: #### 3 040-3, CMP, 46566-5, 88077-7, CBCA, PINR ####[facility] ([id number])[address] [place] [address] 36226 Eosinophils (Bld) [#/Vol] 0.1 10*3/uL Normal 0.0-0.4 [facility] Comment on above: Performed By: #### 3 040-3, CMP, 61313-8, 69778-0, CBCA, PINR ####[facility] ([id number])[address] [place] [address] 35285 Eosinophils/100 WBC (Bld) 0.9 % Normal [facility] Comment on above: Performed By: #### 3 040-3, CMP, 88025-0, 31053-2, CBCA, PINR ####[facility] ([id number])[address] [place] [address] 84403 Erythrocyte distribution width (RBC) [Ratio] 18.6 % High 11.5-15.0 [facility] Comment on above: Performed By: #### 3 040-3, CMP, 54544-6, 76836-7, CBCA, PINR ####[facility] ([id number])[address] [place] [address] 19411 Hematocrit (Bld) [Volume fraction] 38.4 % Low 39-49 [facility] Comment on above: Performed By: #### 3 040-3, CMP, 60448-3, 05698-4, CBCA, PINR ####[facility] ([id number])[address] [place] [address] 15637 Hemoglobin (Bld) [Mass/Vol] 12.7 g/dL Low 13.0-17.0 [facility] Comment on above: Performed By: #### 3 040-3, CMP, 64587-1, 50588-0, CBCA, PINR ####[facility] ([id number])[address] [place] [address] 19049 Lymphocytes (Bld) [#/Vol] 1.3 10*3/uL Normal 1.0-3.5 [facility] Comment on above: Performed By: #### 3 040-3, CMP, 02973-2, 32518-6, CBCA, PINR ####[facility] ([id number])[address] [place] [address] 16385 Lymphocytes/100 WBC (Bld) 14.1 % Normal [facility] Comment on above: Performed By: #### 3 040-3, CMP, 08013-9, 45343-6, CBCA, PINR ####[facility] ([id number])[address] [place] [address] 71249 MCH (RBC) [Entitic mass] 26.2 pg Low 27-34 [facility] Comment on above: Performed By: #### 3 040-3, CMP, 01037-4, 28962-1, CBCA, PINR ####[facility] ([id number])[address] [place] [address] 17817 MCHC (RBC) [Mass/Vol] 33.2 g/dL Normal 32-36 [facility] Comment on above: Performed By: #### 3 040-3, CMP, 18594-7, 87708-4, CBCA, PINR ####[facility] ([id number])[address] [place] [address] 84332 MCV (RBC) [Entitic vol] 79 fL Low 80-100 [facility] Comment on above: Performed By: #### 3 040-3, CMP, 77032-8, 49283-6, CBCA, PINR ####[facility] ([id number])[address] [place] [address] 33143 Monocytes (Bld) [#/Vol] 0.7 10*3/uL Normal 0-0.9 [facility] Comment on above: Performed By: #### 3 040-3, CMP, 39665-7, 34977-1, CBCA, PINR ####[facility] ([id number])[address] [place] [address] 45274 Monocytes/100 WBC (Bld) 8.3 % Normal [facility] Comment on above: Performed By: #### 3 040-3, CMP, 21488-3, 32313-6, CBCA, PINR ####[facility] ([id number])[address] [place] [address] 21833 Neutrophils/100 WBC (Bld) 75.8 % Normal [facility] Comment on above: Performed By: #### 3 040-3, CMP, 61672-5, 77381-8, CBCA, PINR ####[facility] ([id number])[address] [place] [address] 56195 Platelet mean volume (Bld) [Entitic vol] 7.7 fL Normal 7-12 [facility] Comment on above: Performed By: #### 3 040-3, CMP, 40309-7, 38430-0, CBCA, PINR ####[facility] ([id number])[address] [place] [address] 25049 Platelets (Bld) [#/Vol] 134 10*3/uL Low 150-450 [facility] Comment on above: Performed By: #### 3 040-3, CMP, 42620-2, 23812-2, CBCA, PINR ####[facility] ([id number])[address] [place] [address] 64830 RBC COUNT 4.85 X10E12/L Normal 4.10-5.70 [facility] Comment on above: Performed By: #### 3 040-3, CMP, 98804-1, 13756-4, CBCA, PINR ####[facility] ([id number])[address] [place] [address] 74143 WBC (Bld) [#/Vol] 9.0 10*3/uL Normal 4.0-11.0 [facility] Comment on above: Performed By: #### 3 040-3, CMP, 02751-8, 83563-0, CBCA, PINR ####[facility] ([id number])[address] [place] [address] 17293 COMPREHENSIVE METABOLIC PANE [place] 08-24-2024 Albumin [Mass/Vol] 3.8 g/dL Normal 3.2-5.3 [facility] Comment on above: Performed By: #### C BCA, 38536-9, PINR, 86103-7, 1798-8, CMP, 3040-3, 5643-2 ####[facility] ([id number])[address], [address] [place] [address] 75321 ALP [Catalytic activity/Vol] 140 U/L High 39-130 [facility] Comment on above: Performed By: #### C BCA, 07074-8, PINR, 48394-0, 1798-8, CMP, 3040-3, 5643-2 ####[facility] ([id number])[address], [address] [place] [address] 51975 ALT [Catalytic activity/Vol] 31 U/L Normal 0-40 [facility] Comment on above: Performed By: #### C BCA, 43683-7, PINR, 12214-3, 1798-8, CMP, 3040-3, 5643-2 ####[facility] ([id number])[address] [address] [place] [address] 98118 Anion gap [Moles/Vol] 11 mmol/L Normal 5-15 [facility] Comment on above: Performed By: #### C BCA, 13635-9, PINR, 19503-6, 1798-8, CMP, 3040-3, 5643-2 ####[facility] ([id number])[address] [address] [place] [address] 03595 AST [Catalytic activity/Vol] 27 U/L Normal 0-41 [facility] Comment on above: Performed By: #### C BCA, 11070-8, PINR, 26638-6, 1798-8, CMP, 3040-3, 5643-2 ####[facility] ([id number])[address] [address] Bilirubin [Mass/Vol] 1.2 mg/dL Normal 0.3-1.2 [facility] Comment on above: Performed By: #### C BCA, 52156-8, PINR, 78017-1, 1798-8, CMP, 3040-3, 5643-2 ####[facility] ([id number])[address] [address] [place] [address] 82671 Calcium [Mass/Vol] 9.9 mg/dL Normal 8.5-10.5 [facility] Comment on above: Performed By: #### C BCA, 18886-5, PINR, 87743-7, 1798-8, CMP, 3040-3, 5643-2 ####[facility] ([id number])[address] [address] [place] [address] 66741 Chloride [Moles/Vol] 98 mmol/L Normal 98-109 [facility] Comment on above: Performed By: #### C BCA, 09446-4, PINR, 61070-9, 1798-8, CMP, 3040-3, 5643-2 ####[facility] ([id number])[address] [address] [place] [address] 80775 CO2 [Moles/Vol] 31 mmol/L Normal 22-32 [facility] Comment on above: Performed By: #### C BCA, 89936-6, PINR, 16528-3, 8-8, CMP, 3040-3, 5643-2 ####[facility] ([id number])[address] [address] [place] [address] 10378 Creatinine [Mass/Vol] 1.80 mg/dL High 0.60-1.30 [facility] Comment on above: Result Comment: METH OD TRACEABLE TO IDMS STANDARD Performed By: #### C BCA, 34779-8, PINR, 95363-5, 1798-8, CMP, 3040-3, 5643-2 ####[facility] ([id number])[address] [address] [place] [address] 56183 GFR/1.73 sq M.predicted among non-blacks MDRD (S/P/Bld) [Vol rate/Area] 38 mL/min/{1.73_m2} Low >59 [facility] Comment on above: Result Comment: Repo rted eGFR is based on theD-EPI 2020 equation that doesnot use a race coefficient. Performed By: #### C BCA, 86053-3, PINR, 08409-1, 1798-8, CMP, 3040-3, 5643-2 ####[facility] ([id number])[address] [address] Glucose [Mass/Vol] 140 mg/dL High 65-99 [facility] Comment on above: Performed By: #### C BCA, 13771-3, PINR, 31595-1, 1798-8, CMP, 3040-3, 5643-2 ####[facility] ([id number])[address] [place] [address] Potassium [Moles/Vol] 4.1 mmol/L Normal 3.5-5.0 [facility] Comment on above: Performed By: #### C BCA, 00915-1, PINR, 63194-0, 1798-8, CMP, 3040-3, 5643-2 ####[facility] ([id number])[address] [place] [address] Protein [Mass/Vol] 7.7 g/dL Normal 6.0-8.0 [facility] Comment on above: Performed By: #### C BCA, 88222-6, PINR, 42919-4, 1798-8, CMP, 3040-3, 5643-2 ####[facility] ([id number])[address], [address] [place] [address] Sodium [Moles/Vol] 140 mmol/L Normal 134-146 [facility] Comment on above: Performed By: #### C BCA, 73602-5, PINR, 37818-3, 1798-8, CMP, 3040-3, 5643-2 ####[facility] ([id number])[address], [place] [address] Urea nitrogen [Mass/Vol] 49 mg/dL High 5-27 [facility] Comment on above: Performed By: #### C BCA, 95934-5, PINR, 75017-2, 1798-8, CMP, 3040-3, 5643-2 ####[facility] ([id number])[address], [address] [place] [address] Albumin [Mass/Vol] 3.8 g/dL Normal 3.2-5.3 [facility] Comment on above: Performed By: #### 3 040-3, CMP, 34525-9, 42837-3, CBCA, PINR ####[facility] ([id number])[address] [place] [address] 38592 ALP [Catalytic activity/Vol] 153 U/L High 39-130 [facility] Comment on above: Performed By: #### 3 040-3, CMP, 09556-6, 52517-5, CBCA, PINR ####[facility] ([id number])[address] [place] [address] 32161 ALT [Catalytic activity/Vol] 40 U/L Normal 0-40 [facility] Comment on above: Performed By: #### 3 040-3, CMP, 67678-5, 43788-7, CBCA, PINR ####[facility] ([id number])[address] [place] [address] 47282 Anion gap [Moles/Vol] 9 mmol/L Normal 5-15 [facility] Comment on above: Performed By: #### 3 040-3, CMP, 55891-4, 07145-6, CBCA, PINR ####[facility] ([id number])[address] [place] [address] 45386 AST [Catalytic activity/Vol] 37 U/L Normal 0-41 [facility] Comment on above: Performed By: #### 3 040-3, CMP, 46885-7, 31891-4, CBCA, PINR ####[facility] ([id number])[address] [place] [address] 62632 Bilirubin [Mass/Vol] 1.0 mg/dL Normal 0.3-1.2 [facility] Comment on above: Performed By: #### 3 040-3, CMP, 14602-8, 58120-6, CBCA, PINR ####[facility] ([id number])[address] [place] [address] 05352 Calcium [Mass/Vol] 9.4 mg/dL Normal 8.5-10.5 [facility] Comment on above: Performed By: #### 3 040-3, CMP, 22597-2, 42515-1, CBCA, PINR ####[facility] ([id number])[address] [place] [address] 83045 Chloride [Moles/Vol] 102 mmol/L Normal 98-109 [facility] Comment on above: Performed By: #### 3 040-3, CMP, 89077-0, 35626-0, CBCA, PINR ####[facility] ([id number])[address] [place] [address] 76891 CO2 [Moles/Vol] 29 mmol/L Normal 22-32 [facility] Comment on above: Performed By: #### 3 040-3, CMP, 59087-1, 21858-7, CBCA, PINR ####[facility] ([id number])[address] [place] [address] 90881 Creatinine [Mass/Vol] 1.85 mg/dL High 0.70-1.20 [facility] Comment on above: Result Comment: METH OD TRACEABLE TO IDMS STANDARD Performed By: #### 3 040-3, CMP, 54169-5, 44021-0, CBCA, PINR ####[facility] ([id number])[address] [place] [address] 49620 GFR/1.73 sq M.predicted among non-blacks MDRD (S/P/Bld) [Vol rate/Area] 37 mL/min/{1.73_m2} Low >59 [facility] Comment on above: Result Comment: Repo rted eGFR is based on theCKD-EPI 2020 equation that doesnot use a race coefficient. Performed By: #### 3 040-3, RONA, 47880-0, 36717-4, CBCA, PINR ####[facility] ([id number])[address] [place] [address] 70661 Glucose [Mass/Vol] 132 mg/dL High 65-99 [facility] Comment on above: Performed By: #### 3 040-3, RONA, 37940-6, 45522-7, CBCA, PINR ####[facility] ([id number])[address] [place] [address] 78176 Potassium [Moles/Vol] 4.0 mmol/L Normal 3.5-5.0 [facility] Comment on above: Performed By: #### 3 040-3, RONA, 92513-7, 63464-8, CBCA, PINR ####[facility] ([id number])[address] [place] [address] 15497 Protein [Mass/Vol] 8.5 g/dL High 6.0-8.0 [facility] Comment on above: Performed By: #### 3 040-3, CMP, 63789-1, 34290-9, CBCA, PINR ####[facility] ([id number])[address] [place] [address] 37085 Sodium [Moles/Vol] 140 mmol/L Normal 134-146 [facility] Comment on above: Performed By: #### 3 040-3, CMP, 53493-9, 88921-0, CBCA, PINR ####[facility] ([id number])[address] [place] [address] 01086 Urea nitrogen [Mass/Vol] 56 mg/dL High 5-27 [facility] Comment on above: Performed By: #### 3 040-3, CMP, 02216-0, 97980-9, CBCA, PINR ####[facility] ([id number])[address] [place] [address] ABDOMEN AND PELVIS W CONT on 08-24-2024 CT ABDOMEN AND PELVIS W CONT Normal [facility] CT BRAIN WO CONTon CT BRAIN WO CONT Normal [facility] CT CERVICAL SPINE WO CONTon 08-24-2024 CT CERVICAL SPINE WO CONT Normal [facility] CT CHEST W CONTon 08-24-2024 CT CHEST W CONT Normal [facility] ETHANOLon 08-24-2024 Ethanol [Mass/Vol] mg/dL Normal 0.00-0.08 [facility] Comment on above: Result Comment: This report is intended for use in clinicalmonitoring or management of patients. Performed By: #### C BCA, 98977-8, PINR, 30458-4, 1798-8, CMP, 3040-3, 5643-2 ####[facility] ([id number])[address] [place] [address] 66950 Fibrinogen Coagulation.deriv ed (PPP) [Mass/Vol]on 08-24-2024 FIBRINOGEN 492 mg/dL High 190-480 [facility] Comment on above: Performed By: #### C BCA, 37693-7, PINR, 60458-3, 1798-8, CMP, 3040-3, 5643-2 ####[facility] ([id number])[address] [facility] [address] [place] [address] 99315 FIBRINOGEN 492 mg/dL High 190-480 [facility] Comment on above: Performed By: #### 4 8664-7 ####[facility] ([id number])[address], [place] [address] Glucose Glucometer (BldC) [M ass/Vol]on 08-24-2024 Glucose [Mass/Vol] 135 mg/dL High 65-99 [facility] HGBon 08-24-2024 Hematocrit (Bld) [Volume fraction] 35.4 % Low 39-49 [facility] Comment on above: Performed By: #### H H ####[facility] ([id number])[address], [address] [place] [address] Hemoglobin (Bld) [Mass/Vol] 11.7 g/dL Low 13.0-17.0 [facility] Comment on above: Performed By: #### H H ####[facility] ([id number])[address], [address], [place] [address] Hematocrit (Bld) [Volume fraction] 36.4 % Low 39-49 [facility] Comment on above: Performed By: #### H H, PINR ####[facility] ([id number])[address], [address], [place] [address] Hemoglobin (Bld) [Mass/Vol] 11.8 g/dL Low 13.0-17.0 [facility] Comment on above: Performed By: #### H H, PINR ####[facility] ([id number])[address], [address], [place] [address] Hematocrit (Bld) [Volume fraction] 36.7 % Low 39-49 [facility] Comment on above: Performed By: #### P INR, 18729-4, PLTCT, ####[facility] ([id number])[address] [place] [address] Hemoglobin (Bld) [Mass/Vol] 12.1 g/dL Low 13.0-17.0 [facility] Comment on above: Performed By: #### P INR, 55739-7, PLTCT, HH ####[facility] ([id number])[address] [place] [address] LIPASEon 08-24-2024 Lipase [Catalytic activity/Vol] 101 U/L High 11-82 [facility] Comment on above: Performed By: #### C BCA, 49437-4, PINR, 36062-6, 1798-8, CMP, 3040-3, 5643-2 ####[facility] ([id number])[address] [place] [address], [address] [place] [address] Lipase [Catalytic activity/Vol] 94 U/L High 17-40 [facility] Comment on above: Performed By: #### 3 040-3, CMP, 61494-2, 07477-7, CBCA, PINR ####[facility] ([id number])[address] [place] [address] PLATELET COUNT AND MPVon Platelet mean volume (Bld) [Entitic vol] 7.7 fL Normal 7-12 [facility] Comment on above: Performed By: #### P INR, 26631-6, PLTCT, HH ####[facility] ([id number])[address] [place] [address] Platelets (Bld) [#/Vol] 122 10*3/uL Low 150-450 [facility] Comment on above: Performed By: #### P INR, 40030-0, PLTCT, HH ####[facility] ([id number])[address] [place] [address] PROTIME AND INRon 08-24-2024 INR Coag (PPP) [Relative time] 1.5 {INR} High 0.9-1.2 [facility] Comment on above: Performed By: #### H H, PINR ####[facility] ([id number])[address], [address], [place] [address] PT Coag (PPP) [Time] 17.3 s High 9.8-13.2 [facility] Comment on above: Performed By: #### H H, PINR ####[facility] ([id number])[address], [address] [address] INR Coag (PPP) [Relative time] 1.5 {INR} High 0.9-1.2 [facility] Comment on above: Performed By: #### C BCA, 03757-5, PINR, 47416-8, 1798-8, CMP, 3040-3, 5643-2 ####[facility] ([id number])[address], [place] [address] PT Coag (PPP) [Time] 16.9 s High 9.8-13.2 [facility] Comment on above: Performed By: #### C BCA, 38049-6, PINR, 33199-1, 1798-8, CMP, 3040-3, 5643-2 ####[facility] ([id number])[address], [place] [address] INR Coag (PPP) [Relative time] 1.7 {INR} High 0.9-1.2 [facility] Comment on above: Performed By: #### P INR, 86968-5, PLTCT, HH ####[facility] ([id number])[address] [place] [address] PT Coag (PPP) [Time] 20.4 s High 9.8-13.2 [facility] Comment on above: Result Comment: NEW REFERENCE RANGE Performed By: #### P INR, 76388-6, PLTCT, HH ####[facility] ([id number])[address] [place] [address] INR Coag (PPP) [Relative time] 1.7 {INR} High 0.9-1.2 [facility] Comment on above: Performed By: #### 3 040-3, CMP, 39466-7, 90279-1, CBCA, PINR ####[facility] ([id number])[address] [place] [address] PT Coag (PPP) [Time] 19.8 s High 9.8-13.2 [facility] Comment on above: Result Comment: NEW REFERENCE RANGE Performed By: #### 3 040-3, CMP, 50976-3, 90497-2, CBCA, PINR ####[facility] ([id number])[address] [place] [address] 11564 Troponin I.cardiac High sens itivity method [Mass/Vol]on 08-24-2024 TROPONIN I, HIGH SENSITIVITY 14 ng/L Normal <21 [facility] Comment on above: Performed By: #### 3 040-3, CMP, 20397-6, 98649-8, CBCA, PINR ####[facility] ([id number])[address] [place] [address] 35012 XR CHEST 1 VWon 08-24-2024 XR CHEST 1 VW Normal [facility] XR RIBS RT 3 VWS W PA CHESTo n 08-24-2024 XR RIBS RT 3 VWS W PA CHEST Normal [facility] aPTT Coag (PPP) [Time]on aPTT Coag (Bld) [Time] 31 s Normal 26-37 [facility] Comment on above: Performed By: #### C BCA, 90287-7, PINR, 27314-3, 1798-8, CMP, 3040-3, 5643-2 ####[facility] ([id number])[address] [facility] [address] [facility] [address], [place] [address] aPTT Coag (Bld) [Time] 37 s Normal 26-37 [facility] Comment on above: Result Comment: NEW REFERENCE RANGE Performed By: #### P INR, 22571-3, PLTCT, HH ####[facility] ([id number])[address] [place] [address] aPTT Coag (Bld) [Time] 36 s Normal 26-37 [facility] Comment on above: Result Comment: NEW REFERENCE RANGE Performed By: #### 3 040-3, CMP, 09550-7, 05321-5, CBCA, PINR ####[facility] ([id number])[address] [place] [address] BASIC METABOLIC PANLon 08-20 Anion gap [Moles/Vol] 13 mmol/L Normal 5-15 [facility] Comment on above: Performed By: #### B MP ####[facility] ([id number])[address], [place] [address] Calcium [Mass/Vol] 9.5 mg/dL Normal 8.5-10.5 [facility] Comment on above: Performed By: #### B MP ####[facility] ([id number])[address], [place] [address] Chloride [Moles/Vol] 98 mmol/L Normal 98-109 [facility] Comment on above: Performed By: #### B MP ####[facility] ([id number])[address], [address], [place] [address] CO2 [Moles/Vol] 30 mmol/L Normal 22-32 [facility] Comment on above: Performed By: #### B MP ####[facility] ([id number])[address], [address], [place] [address] Creatinine [Mass/Vol] 1.78 mg/dL High 0.60-1.30 [facility] Comment on above: Result Comment: METH OD TRACEABLE TO IDMS STANDARD Performed By: #### B MP ####[facility] ([id number])[address] [address] [place] [address] GFR/1.73 sq M.predicted among non-blacks MDRD (S/P/Bld) [Vol rate/Area] 38 mL/min/{1.73_m2} Low >59 [facility] Comment on above: Result Comment: Repo rted eGFR is based on theCKD-EPI 2020 equation that doesnot use a race coefficient. Performed By: #### B MP ####[facility] ([id number])[address], [address] [place] [address] Glucose [Mass/Vol] 192 mg/dL High 65-99 [facility] Comment on above: Performed By: #### B MP ####[facility] ([id number])[address] [address] [place] [address] Potassium [Moles/Vol] 4.4 mmol/L Normal 3.5-5.0 [facility] Comment on above: Performed By: #### B MP ####[facility] ([id number])[address], [address] [place] [address] Sodium [Moles/Vol] 141 mmol/L Normal 134-146 [facility] Comment on above: Performed By: #### B MP ####[facility] ([id number])[address] [address] [place] [address] Urea nitrogen [Mass/Vol] 45 mg/dL High 5-27 [facility] Comment on above: Performed By: #### B MP ####[facility] ([id number])[address] [address] [place] [address] POCT Protime / INRon 08-19- 025 INR Coag (PPP) [Relative time] 1.8 {INR} Abnormal 0.8 - 1.2 [facility] Interpretation and review of laboratory results Abnormal [facility] BASIC METABOLIC PANLon 08-06 Anion gap [Moles/Vol] 9 mmol/L Normal 5-15 [facility] Comment on above: Performed By: #### B MP ####[facility] ([id number])[address] [address], [place] [address] Calcium [Mass/Vol] 9.3 mg/dL Normal 8.5-10.5 [facility] Comment on above: Performed By: #### B MP ####[facility] ([id number])[address] [address], [place] [address] Chloride [Moles/Vol] 101 mmol/L Normal 98-109 [facility] Comment on above: Performed By: #### B MP ####[facility] ([id number])[address] [address], [place] [address] CO2 [Moles/Vol] 32 mmol/L Normal 22-32 [facility] Comment on above: Performed By: #### B MP ####[facility] ([id number])[address] [address], [place] [address] Creatinine [Mass/Vol] 1.64 mg/dL High 0.60-1.30 [facility] Comment on above: Result Comment: METH OD TRACEABLE TO IDMS STANDARD Performed By: #### B MP ####[facility] ([id number])[address] [address], [place] [address] GFR/1.73 sq M.predicted among non-blacks MDRD (S/P/Bld) [Vol rate/Area] 42 mL/min/{1.73_m2} Low >59 [facility] Comment on above: Result Comment: Repo rted eGFR is based on theCKD-EPI 2020 equation that doesnot use a race coefficient. Performed By: #### B MP ####[facility] ([id number])[address], [address], [place] [address] Glucose [Mass/Vol] 145 mg/dL High 65-99 [facility] Comment on above: Performed By: #### B MP ####[facility] ([id number])[address], [address], [place] [address] Potassium [Moles/Vol] 4.4 mmol/L Normal 3.5-5.0 [facility] Comment on above: Performed By: #### B MP ####[facility] ([id number])[address], [address], [place] [address] Sodium [Moles/Vol] 142 mmol/L Normal 134-146 [facility] Comment on above: Performed By: #### B MP ####[facility] ([id number])[address], [place] [address] Urea nitrogen [Mass/Vol] 34 mg/dL High 5-27 [facility] Comment on above: Performed By: #### B MP ####[facility] ([id number])[address], [address], [place] [address] POCT Protime / INRon 025 INR Coag (PPP) [Relative time] 1.6 {INR} Abnormal 0.8 - 1.2 [facility] Interpretation and review of laboratory results Abnormal [facility] BASIC METABOLIC PANLon 07-26 Anion gap [Moles/Vol] 12 mmol/L Normal 5-15 [facility] Comment on above: Performed By: #### B MP ####[facility] ([id number])[address] [address], [place] [address] Calcium [Mass/Vol] 9.5 mg/dL Normal 8.5-10.5 [facility] Comment on above: Performed By: #### B MP ####[facility] ([id number])[address] [address] [address] Chloride [Moles/Vol] 100 mmol/L Normal 98-109 [facility] Comment on above: Performed By: #### B MP ####[facility] ([id number])[address] [address] [address] CO2 [Moles/Vol] 31 mmol/L Normal 22-32 [facility] Comment on above: Performed By: #### B MP ####[facility] ([id number])[address] [address], [place] [address] Creatinine [Mass/Vol] 1.97 mg/dL High 0.60-1.30 [facility] Comment on above: Result Comment: METH OD TRACEABLE TO IDMS STANDARD Performed By: #### B MP ####[facility] ([id number])[address] [address], [place] [address] GFR/1.73 sq M.predicted among non-blacks MDRD (S/P/Bld) [Vol rate/Area] 34 mL/min/{1.73_m2} Low >59 [facility] Comment on above: Result Comment: Repo rted eGFR is based on theCKD-EPI 2020 equation that doesnot use a race coefficient. Performed By: #### B MP ####[facility] ([id number])[address] [address], [place] [address] Glucose [Mass/Vol] 204 mg/dL High 65-99 [facility] Comment on above: Performed By: #### B MP ####[facility] ([id number])[address] [address], [place] [address] Potassium [Moles/Vol] 3.7 mmol/L Normal 3.5-5.0 [facility] Comment on above: Performed By: #### B MP ####[facility] ([id number])[address], [address], [place] [address] Sodium [Moles/Vol] 143 mmol/L Normal 134-146 [facility] Comment on above: Performed By: #### B MP ####[facility] ([id number])[address], [address], [place] [address] Urea nitrogen [Mass/Vol] 42 mg/dL High 5-27 [facility] Comment on above: Performed By: #### B MP ####[facility] ([id number])[address], [address], [place] [address] BASIC METABOLIC PANLon 07-20 Anion gap [Moles/Vol] 11 mmol/L Normal 5-15 [facility] Comment on above: Performed By: #### B MP ####[facility] ([id number])[address], [address], [place] [address] Calcium [Mass/Vol] 9.3 mg/dL Normal 8.5-10.5 [facility] Comment on above: Performed By: #### B MP ####[facility] ([id number])[address], [address], [place] [address] Chloride [Moles/Vol] 103 mmol/L Normal 98-109 [facility] Comment on above: Performed By: #### B MP ####[facility] ([id number])[address], [place] [address] CO2 [Moles/Vol] 30 mmol/L Normal 22-32 [facility] Comment on above: Performed By: #### B MP ####[facility] ([id number])[address], [place] [address] Creatinine [Mass/Vol] 1.84 mg/dL High 0.60-1.30 [facility] Comment on above: Result Comment: METH OD TRACEABLE TO IDMS STANDARD Performed By: #### B MP ####[facility] ([id number])[address] [address] [address] GFR/1.73 sq M.predicted among non-blacks MDRD (S/P/Bld) [Vol rate/Area] 37 mL/min/{1.73_m2} Low >59 [facility] Comment on above: Result Comment: Repo rted eGFR is based on theCKD-EPI 2020 equation that doesnot use a race coefficient. Performed By: #### B MP ####[facility] ([id number])[address] [address] [address] Glucose [Mass/Vol] 187 mg/dL High 65-99 [facility] Comment on above: Performed By: #### B MP ####[facility] ([id number])[address] [address] [address] Potassium [Moles/Vol] 3.6 mmol/L Normal 3.5-5.0 [facility] Comment on above: Performed By: #### B MP ####[facility] ([id number])[address] [address], [place] [address] Sodium [Moles/Vol] 144 mmol/L Normal 134-146 [facility] Comment on above: Performed By: #### B MP ####[facility] ([id number])[address] [address] [address] Urea nitrogen [Mass/Vol] 43 mg/dL High 5-27 [facility] Comment on above: Performed By: #### B MP ####[facility] ([id number])[address] [address], [place] [address] BASIC METABOLIC PANLon 07-08 Anion gap [Moles/Vol] 8 mmol/L Normal 5-15 [facility] Comment on above: Performed By: #### B MP ####[facility] ([id number])[address] [address], [place] [address] Calcium [Mass/Vol] 9.3 mg/dL Normal 8.5-10.5 [facility] Comment on above: Performed By: #### B MP ####[facility] ([id number])[address] [address], [place] [address] Chloride [Moles/Vol] 104 mmol/L Normal 98-109 [facility] Comment on above: Performed By: #### B MP ####[facility] ([id number])[address] [address], [place] [address] CO2 [Moles/Vol] 31 mmol/L Normal 22-32 [facility] Comment on above: Performed By: #### B MP ####[facility] ([id number])[address] [address] Creatinine [Mass/Vol] 1.83 mg/dL High 0.60-1.30 [facility] Comment on above: Result Comment: METH OD TRACEABLE TO IDMS STANDARD Performed By: #### B MP ####[facility] ([id number])[address] [address] GFR/1.73 sq M.predicted among non-blacks MDRD (S/P/Bld) [Vol rate/Area] 37 mL/min/{1.73_m2} Low >59 [facility] Comment on above: Result Comment: Repo rted eGFR is based on theCKD-EPI 2020 equation that doesnot use a race coefficient. Performed By: #### B MP ####[facility] ([id number])[address] [address] Glucose [Mass/Vol] 175 mg/dL High 65-99 [facility] Comment on above: Performed By: #### B MP ####[facility] ([id number])[address] [address] Potassium [Moles/Vol] 3.8 mmol/L Normal 3.5-5.0 [facility] Comment on above: Performed By: #### B MP ####[facility] ([id number])[address], [place] [address] Sodium [Moles/Vol] 143 mmol/L Normal 134-146 [facility] Comment on above: Performed By: #### B MP ####[facility] ([id number])[address], [address] [place] [address] Urea nitrogen [Mass/Vol] 48 mg/dL High 5-27 [facility] Comment on above: Performed By: #### B MP ####[facility] ([id number])[address] [address] POCT Protime / INRon 025 INR Coag (PPP) [Relative time] 2.1 {INR} Abnormal 0.8 - 1.2 [facility] Interpretation and review of laboratory results Abnormal [facility] US RETROPERITONEAL COMPLETEo n 06-22-2024 US RETROPERITONEAL COMPLETE Normal [facility] Cytologyon 06-10-2024 Cytology Normal [facility] Comment on above: Result Comment: [facility] [address] [place] [address] Cytology ConsultationPatient Name:SHEEBA ADAMES:1945 (Age: 79)Gender:MTaken:06/10/2024eported:06/14/2024 15:11Physician(s):Fabián Bishop M.D. ([phone])Copy To: Rec. #:[id number]: #[id number] Cytologic DiagnosisUrine:Negative for high-grade urothelial cell carcinoma.nxk/12/23/2024Interpretation performed at [facility] [address] [place] [address], License number: [id number].Electronically Signed Out By Cristhian De Santiago MDClinical HistoryMalignant neoplasm of overlapping sites of bladder ([facility]) (C67.8). Hematuria.Gross DescriptionReceived was 40 mL of yellow fluid labeled as Zacarias, 45 . The order states that this is a urine specimen.Preservative added. 30ml used for Cytology. See UroVysion report.Source of Specimen Urine Non LOG BUNCHER ThinPrepFee Code(s):1; 93339 Reference Lab Test IDon 12- UROVYSION FOR BLADDER CANCER SEE COMMENTS 06/29/2024 01:59 PM Normal [facility] Comment on above: Result Comment: NOTE Test Result Flag Unit RefValue --------UroVysion (R) for Bladder Cancer Result Summary Negative Result No evidence of urothelial carcinoma. Interpretation See Note This test result does not rule out the possibility that the patient may have a low-grade (i.e. grade 1 or 2) non-invasive papillary urothelial carcinoma. Some patients with low grade non-invasive papillary urothelial carcinoma do not have abnormalities with this FISH test. ADDITIONAL INFORMATION Fluorescence in situ hybridization (FISH) with centromere probes for chromosomes 3 (D3Z1), 7(D7Z1), 17(D17Z1), and a locus specific probe for 9p21 ([employer] [place], [place]). This test has been modified from the utility tractor operator's instructions. Its performance characteristics were determined by [facility] in a manner consistent with CLIA requirements. This test has not been cleared or approved by the U.S. Food and Drug Administration. Reason for Referral Evaluate for urothelial carcinoma. Specimen Varies Source Urine, NOS Released By Tracy Miller M.D. Test Performed by: [facility] - [address] [address] Device Test Engineer: Julio C Ortega Ph.D.; CLIA# [id number] Performed By: #### 3 0896-5 ####[facility] ([id number])[address] [place] [address] URINE CULTUREon 06-10-2024 Bacteria identified Cx Nom (U) Susceptible [facility] Comment on above: Performed By: #### 6 30-4 ####[facility] ([id number])[address], [place] [address] BASIC METABOLIC PANLon 05-24 Anion gap [Moles/Vol] 10 mmol/L Normal 5-15 [facility] Comment on above: Performed By: #### 1 9123-9, BMP ####[facility] ([id number])[address], [place] [address] Calcium [Mass/Vol] 9.1 mg/dL Normal 8.5-10.5 [facility] Comment on above: Performed By: #### 1 9123-9, BMP ####[facility] ([id number])[address], [address], [place] [address] Chloride [Moles/Vol] 100 mmol/L Normal 98-109 [facility] Comment on above: Performed By: #### 1 9123-9, BMP ####[facility] ([id number])[address] [address] CO2 [Moles/Vol] 34 mmol/L High 22-32 [facility] Comment on above: Performed By: #### 1 9123-9, BMP ####[facility] ([id number])[address], [place] [address] Creatinine [Mass/Vol] 1.67 mg/dL High 0.60-1.30 [facility] Comment on above: Result Comment: METH OD TRACEABLE TO IDMS STANDARD Performed By: #### 1 9123-9, BMP ####[facility] ([id number])[address] [address] [place] [address], [place] [address] GFR/1.73 sq M.predicted among non-blacks MDRD (S/P/Bld) [Vol rate/Area] 41 mL/min/{1.73_m2} Low >59 [facility] Comment on above: Result Comment: Repo rted eGFR is based on theCKD-EPI 2020 equation that doesnot use a race coefficient. Performed By: #### 1 9123-9, BMP ####[facility] ([id number])[address] [address], [place] [address] Glucose [Mass/Vol] 126 mg/dL High 65-99 [facility] Comment on above: Performed By: #### 1 9123-9, BMP ####[facility] ([id number])[address] [address], [place] [address] Potassium [Moles/Vol] 3.8 mmol/L Normal 3.5-5.0 [facility] Comment on above: Performed By: #### 1 9123-9, BMP ####[facility] ([id number])[address] [address] [place] [address], [place] [address] Sodium [Moles/Vol] 144 mmol/L Normal 134-146 [facility] Comment on above: Performed By: #### 1 9123-9, BMP ####[facility] ([id number])[address] [address] [place] [address], [place] [address] Urea nitrogen [Mass/Vol] 27 mg/dL Normal 5-27 [facility] Comment on above: Performed By: #### 1 9123-9, BMP ####[facility] ([id number])[address] [address] [place] [address], [place] [address] MAGNESIUMon 12-02-2024 Magnesium [Mass/Vol] 2.0 mg/dL Normal 1.8-2.6 [facility] Comment on above: Performed By: #### 1 9123-9, BMP ####[facility] ([id number])[address] [address] POCT Protime / INRon 024 INR Coag (PPP) [Relative time] 2.2 {INR} Abnormal 0.8 - 1.2 [facility] Interpretation and review of laboratory results Abnormal [facility] BASIC METABOLIC PANLon 05-06 Anion gap [Moles/Vol] 10 mmol/L Normal 5-15 [facility] Comment on above: Performed By: #### 1 9123-9, BMP ####[facility] ([id number])[address], [address] [place] [address] Calcium [Mass/Vol] 9.4 mg/dL Normal 8.5-10.5 [facility] Comment on above: Performed By: #### 1 9123-9, BMP ####[facility] ([id number])[address], [address] [place] [address] Chloride [Moles/Vol] 103 mmol/L Normal 98-109 [facility] Comment on above: Performed By: #### 1 9123-9, BMP ####[facility] ([id number])[address], [address] [place] [address], [place] [address] CO2 [Moles/Vol] 31 mmol/L Normal 22-32 [facility] Comment on above: Performed By: #### 1 9123-9, BMP ####[facility] ([id number])[address], [facility] [facility] [place] [address] Creatinine [Mass/Vol] 1.38 mg/dL High 0.60-1.30 [facility] Comment on above: Result Comment: METH OD TRACEABLE TO IDMS STANDARD Performed By: #### 1 9123-9, BMP ####[facility] ([id number])[address] [place] [address] GFR/1.73 sq M.predicted among non-blacks MDRD (S/P/Bld) [Vol rate/Area] 52 mL/min/{1.73_m2} Low >59 [facility] Comment on above: Result Comment: Repo rted eGFR is based on theCKD-EPI 2020 equation that doesnot use a race coefficient. Performed By: #### 1 9123-9, BMP ####[facility] ([id number])[address] [address] [place] [address] Glucose [Mass/Vol] 140 mg/dL High 65-99 [facility] Comment on above: Performed By: #### 1 9123-9, BMP ####[facility] ([id number])[address] [address] [place] [address], [place] [address] Potassium [Moles/Vol] 4.1 mmol/L Normal 3.5-5.0 [facility] Comment on above: Performed By: #### 1 9123-9, BMP ####[facility] ([id number])2130 [address] [address] [place] [address], [place] [address] Sodium [Moles/Vol] 144 mmol/L Normal 134-146 [facility] Comment on above: Performed By: #### 1 9123-9, BMP ####[facility] ([id number])2130 [address] [address] [place] [address], [place] [address] Urea nitrogen [Mass/Vol] 23 mg/dL Normal 5-27 [facility] Comment on above: Performed By: #### 1 9123-9, BMP ####[facility] ([id number])2130 [address] [address] [place] [id number] MAGNESIUMon 05-06-2024 Magnesium [Mass/Vol] 2.0 mg/dL Normal 1.8-2.6 [facility] Comment on above: Performed By: #### 1 9123-9, BMP ####[facility] ([id number])2129 [address] [place] [address] POCT Protime / INRon INR Coag (PPP) [Relative time] 3.2 {INR} Abnormal 0.8 - 1.2 [facility] Interpretation and review of laboratory results Abnormal [facility] Protime & INRon 04-28-2024 INR Coag (PPP) [Relative time] 2.9 {INR} Abnormal 0.9 - 1.1 [facility] Interpretation and review of laboratory results Abnormal [facility] Protime & INRon 04-21-2024 INR Coag (PPP) [Relative time] 3.9 {INR} Abnormal 0.9 - 1.1 [facility] Interpretation and review of laboratory results Abnormal [facility] BASIC METABOLIC PANLon 04-19 Anion gap [Moles/Vol] 8 mmol/L Normal 5-15 [facility] Comment on above: Performed By: #### B MP ####[facility] ([id number])[address], [place] [address] Calcium [Mass/Vol] 9.2 mg/dL Normal 8.5-10.5 [facility] Comment on above: Performed By: #### B MP ####[facility] ([id number])[address] [address] Chloride [Moles/Vol] 103 mmol/L Normal 98-109 [facility] Comment on above: Performed By: #### B MP ####[facility] ([id number])[address] [address] CO2 [Moles/Vol] 30 mmol/L Normal 22-32 [facility] Comment on above: Performed By: #### B MP ####[facility] ([id number])[address] [address], [place] [address] Creatinine [Mass/Vol] 1.68 mg/dL High 0.60-1.30 [facility] Comment on above: Result Comment: METH OD TRACEABLE TO IDMS STANDARD Performed By: #### B MP ####[facility] ([id number])[address] [address] [address] GFR/1.73 sq M.predicted among non-blacks MDRD (S/P/Bld) [Vol rate/Area] 41 mL/min/{1.73_m2} Low >59 [facility] Comment on above: Result Comment: Repo rted eGFR is based on theCKD-EPI 2020 equation that doesnot use a race coefficient. Performed By: #### B MP ####[facility] ([id number])[address] [address], [place] [address] Glucose [Mass/Vol] 209 mg/dL High 65-99 [facility] Comment on above: Performed By: #### B MP ####[facility] ([id number])[address] [address], [place] [address] Potassium [Moles/Vol] 3.8 mmol/L Normal 3.5-5.0 [facility] Comment on above: Performed By: #### B MP ####[facility] ([id number])[address] [address] [address] Sodium [Moles/Vol] 141 mmol/L Normal 134-146 [facility] Comment on above: Performed By: #### B MP ####[facility] ([id number])[address] [address], [place] [address] Urea nitrogen [Mass/Vol] 24 mg/dL Normal 5-27 [facility] Comment on above: Performed By: #### B MP ####[facility] ([id number])[address] [address], [place] [address] POCT Protime / INRon 04-16- 024 INR Coag (PPP) [Relative time] 2.4 {INR} Abnormal 0.8 - 1.2 [facility] Interpretation and review of laboratory results Abnormal [facility] BASIC METABOLIC PANLon 04-13 Anion gap [Moles/Vol] 10 mmol/L Normal 5-15 [facility] Comment on above: Performed By: #### B EVITA CBCA ####[facility] ([id number])[address] [address] Calcium [Mass/Vol] 9.2 mg/dL Normal 8.5-10.5 [facility] Comment on above: Performed By: #### B EVITA CBCLakshmi ####[facility] ([id number])[address] [address] [place] [address] Chloride [Moles/Vol] 104 mmol/L Normal 98-109 [facility] Comment on above: Performed By: #### Koby JAMA CBCLakshmi ####[facility] ([id number])[address] [address] CO2 [Moles/Vol] 29 mmol/L Normal 22-32 [facility] Comment on above: Performed By: #### Koby JAMA CBCA ####[facility] ([id number])[address] [address] Creatinine [Mass/Vol] 1.77 mg/dL High 0.60-1.30 [facility] Comment on above: Result Comment: METH OD TRACEABLE TO IDMS STANDARD Performed By: #### B EVITA CBCA ####[facility] ([id number])[address] [address] GFR/1.73 sq M.predicted among non-blacks MDRD (S/P/Bld) [Vol rate/Area] 39 mL/min/{1.73_m2} Low >59 [facility] Comment on above: Result Comment: Repo rted eGFR is based on theD-EPI 2020 equation that doesnot use a race coefficient. Performed By: #### B MANUELA JAMA ####[facility] ([id number])[address] [address], [place] [address] Glucose [Mass/Vol] 113 mg/dL High 65-99 [facility] Comment on above: Performed By: #### B EVITA CBCA ####[facility] ([id number])[address] [address] [place] [address] Potassium [Moles/Vol] 3.5 mmol/L Normal 3.5-5.0 [facility] Comment on above: Performed By: #### B EVITA CBCLakshmi ####[facility] ([id number])[address] [address] [place] [address], [place] [address] Sodium [Moles/Vol] 143 mmol/L Normal 134-146 [facility] Comment on above: Performed By: #### B MANUELA JAMA ####[facility] ([id number])[address] [address] [place] [address], [place] [address] Urea nitrogen [Mass/Vol] 31 mg/dL High 5-27 [facility] Comment on above: Performed By: #### B MANUELA JAMA ####[facility] ([id number])[address] [address] [place] [address] CBC AND AUTO DIFFon 10-22-20 24 ABSOLUTE BASOPHIL 0.1 X10E9/L Normal 0.0-0.2 [facility] Comment on above: Performed By: #### B EVITA CBCA ####[facility] ([id number])[address] [address] [place] [address], [place] [address] ABSOLUTE NEUTROPHIL 5.8 X10E9/L Normal 1.5-6.6 [facility] Comment on above: Performed By: #### B MP, CBCA ####[facility] ([id number])[address] [address], [place] [address] Basophils/100 WBC (Bld) 0.6 % Normal [facility] Comment on above: Performed By: #### B MP, CBCA ####[facility] ([id number])[address] [address] [place] [address] Eosinophils (Bld) [#/Vol] 0.1 10*3/uL Normal 0.0-0.4 [facility] Comment on above: Performed By: #### B MP, CBCA ####[facility] ([id number])[address] [address] [place] [address] Eosinophils/100 WBC (Bld) 1.3 % Normal [facility] Comment on above: Performed By: #### B MP, CBCA ####[facility] ([id number])[address] [address] Erythrocyte distribution width (RBC) [Ratio] 16.8 % High 11.5-15.0 [facility] Comment on above: Performed By: #### B EVITA, CBCA ####[facility] ([id number])[address] [address] Hematocrit (Bld) [Volume fraction] 37.3 % Low 39-49 [facility] Comment on above: Performed By: #### B MP, CBCA ####[facility] ([id number])[address] [address] Hemoglobin (Bld) [Mass/Vol] 12.5 g/dL Low 13.0-17.0 [facility] Comment on above: Performed By: #### B MP, CBCA ####[facility] ([id number])[address] [address], [place] [address] Lymphocytes (Bld) [#/Vol] 1.7 10*3/uL Normal 1.0-3.5 [facility] Comment on above: Performed By: #### B MP, CBCA ####[facility] ([id number])[address] [address], [place] [address] Lymphocytes/100 WBC (Bld) 20.5 % Normal [facility] Comment on above: Performed By: #### B EVITA, CBCA ####[facility] ([id number])[address] [address] [place] [address], [place] [address] MCH (RBC) [Entitic mass] 27.3 pg Normal 27-34 [facility] Comment on above: Performed By: #### B EVITA, CBCA ####[facility] ([id number])[address] [place] [address] MCHC (RBC) [Mass/Vol] 33.5 g/dL Normal 32-36 [facility] Comment on above: Performed By: #### B EVITA, CBCA ####[facility] ([id number])[address] [place] [address] MCV (RBC) [Entitic vol] 82 fL Normal 80-100 [facility] Comment on above: Performed By: #### B EVITA, CBCA ####[facility] ([id number])[address] [place] [address] Monocytes (Bld) [#/Vol] 0.6 10*3/uL Normal 0-0.9 [facility] Comment on above: Performed By: #### B EVITA, CBCA ####[facility] ([id number])[address] [address] [place] [address], [place] [address] Monocytes/100 WBC (Bld) 7.3 % Normal [facility] Comment on above: Performed By: #### B MP, CBCA ####[facility] ([id number])[address] [address] [place] [address] Neutrophils/100 WBC (Bld) 70.3 % Normal [facility] Comment on above: Performed By: #### B MP, CBCA ####[facility] ([id number])[address] [address] [place] [address] Platelet mean volume (Bld) [Entitic vol] 8.8 fL Normal 7-12 [facility] Comment on above: Performed By: #### B MP, CBCA ####[facility] ([id number])[address] [address] Platelets (Bld) [#/Vol] 153 10*3/uL Normal 150-450 [facility] Comment on above: Performed By: #### B EVITA, CBCA ####[facility] ([id number])[address] [address] [place] [address] RBC COUNT 4.56 X10E12/L Normal 4.10-5.70 [facility] Comment on above: Performed By: #### B EVITA, CBCA ####[facility] ([id number])[address] [address] WBC (Bld) [#/Vol] 8.2 10*3/uL Normal 4.0-11.0 [facility] Comment on above: Performed By: #### B MP, CBCA ####[facility] ([id number])[address] [address] POCT Protime / INRon 024 INR Coag (PPP) [Relative time] 3.8 {INR} Abnormal 0.8 - 1.2 [facility] Interpretation and review of laboratory results Abnormal [facility] BASIC METABOLIC PANLon 10-14 -2024 Anion gap [Moles/Vol] 10 mmol/L Normal 5-15 [facility] Comment on above: Performed By: #### B MP ####[facility] ([id number])[address] [address], [place] [address] Calcium [Mass/Vol] 9.2 mg/dL Normal 8.5-10.5 [facility] Comment on above: Performed By: #### B MP ####[facility] ([id number])[address] [address], [place] [address] Chloride [Moles/Vol] 105 mmol/L Normal 98-109 [facility] Comment on above: Performed By: #### B MP ####[facility] ([id number])[address] [address], [place] [address] CO2 [Moles/Vol] 29 mmol/L Normal 22-32 [facility] Comment on above: Performed By: #### B MP ####[facility] ([id number])[address] [address], [place] [address] Creatinine [Mass/Vol] 1.86 mg/dL High 0.60-1.30 [facility] Comment on above: Result Comment: METH OD TRACEABLE TO IDMS STANDARD Performed By: #### B MP ####[facility] ([id number])[address] [address], [place] [address] GFR/1.73 sq M.predicted among non-blacks MDRD (S/P/Bld) [Vol rate/Area] 36 mL/min/{1.73_m2} Low >59 [facility] Comment on above: Result Comment: Repo rted eGFR is based on theCKD-EPI 2020 equation that doesnot use a race coefficient. Performed By: #### B MP ####[facility] ([id number])[address] [address], [place] [address] Glucose [Mass/Vol] 183 mg/dL High 65-99 [facility] Comment on above: Performed By: #### B MP ####[facility] ([id number])[address], [place] [address] Potassium [Moles/Vol] 3.8 mmol/L Normal 3.5-5.0 [facility] Comment on above: Performed By: #### B MP ####[facility] ([id number])[address], [place] [address] Sodium [Moles/Vol] 144 mmol/L Normal 134-146 [facility] Comment on above: Performed By: #### B MP ####[facility] ([id number])[address], [place] [address] Urea nitrogen [Mass/Vol] 34 mg/dL High 5-27 [facility] Comment on above: Performed By: #### B MP ####[facility] ([id number])[address], [place] [address] BASIC METABOLIC PANLon 04-01 Anion gap [Moles/Vol] 9 mmol/L Normal 5-15 [facility] Comment on above: Performed By: #### B MP ####[facility] ([id number])[address], [place] [address] Calcium [Mass/Vol] 9.2 mg/dL Normal 8.5-10.5 [facility] Comment on above: Performed By: #### B MP ####[facility] ([id number])[address], [place] [address] Chloride [Moles/Vol] 102 mmol/L Normal 98-109 [facility] Comment on above: Performed By: #### B MP ####[facility] ([id number])[address], [place] [address] CO2 [Moles/Vol] 31 mmol/L Normal 22-32 [facility] Comment on above: Performed By: #### B MP ####[facility] ([id number])[address] [address], [place] [address] Creatinine [Mass/Vol] 1.54 mg/dL High 0.60-1.30 [facility] Comment on above: Result Comment: METH OD TRACEABLE TO IDMS STANDARD Performed By: #### B MP ####[facility] ([id number])[address] [address] [address] GFR/1.73 sq M.predicted among non-blacks MDRD (S/P/Bld) [Vol rate/Area] 46 mL/min/{1.73_m2} Low >59 [facility] Comment on above: Result Comment: Repo rted eGFR is based on theCKD-EPI 2020 equation that doesnot use a race coefficient. Performed By: #### B MP ####[facility] ([id number])[address] [address] [address] Glucose [Mass/Vol] 134 mg/dL High 65-99 [facility] Comment on above: Performed By: #### B MP ####[facility] ([id number])[address] [address], [place] [address] Potassium [Moles/Vol] 3.7 mmol/L Normal 3.5-5.0 [facility] Comment on above: Performed By: #### B MP ####[facility] ([id number])[address] [address] [address] Sodium [Moles/Vol] 142 mmol/L Normal 134-146 [facility] Comment on above: Performed By: #### B MP ####[facility] ([id number])[address] [address], [place] [address] Urea nitrogen [Mass/Vol] 30 mg/dL High 5-27 [facility] Comment on above: Performed By: #### B MP ####[facility] ([id number])[address] [address] Protime & INRon 03-31-2024 INR Coag (PPP) [Relative time] 3.0 {INR} Abnormal 0.9 - 1.1 [facility] Interpretation and review of laboratory results Abnormal [facility] Protime & INRon 03-24-2024 INR Coag (PPP) [Relative time] 2.7 {INR} Abnormal 0.9 - 1.1 [facility] Interpretation and review of laboratory results Abnormal [facility] Protime & INRon 03-18-2024 INR Coag (PPP) [Relative time] 1.8 {INR} Abnormal 0.9 - 1.1 [facility] Interpretation and review of laboratory results Abnormal [facility] URINE CULTUREon 03-17-2024 Bacteria identified Cx Nom (U) Susceptible [facility] Comment on above: Performed By: #### 6 30-4 ####[facility] ([id number])[address] [place] [address] BASIC METABOLIC PANLon 03-16 Anion gap [Moles/Vol] 11 mmol/L Normal 5-15 [facility] Comment on above: Performed By: #### 2 857-1, BMP ####[facility] ([id number])[address], [place] [address] Calcium [Mass/Vol] 9.1 mg/dL Normal 8.5-10.5 [facility] Comment on above: Performed By: #### 2 857-1, BMP ####[facility] ([id number])[address] [place] [address] Chloride [Moles/Vol] 106 mmol/L Normal 98-109 [facility] Comment on above: Performed By: #### 2 857-1, BMP ####[facility] ([id number])[address] [address] CO2 [Moles/Vol] 27 mmol/L Normal 22-32 [facility] Comment on above: Performed By: #### 2 857-1, BMP ####[facility] ([id number])[address] [address] Creatinine [Mass/Vol] 1.25 mg/dL Normal 0.60-1.30 [facility] Comment on above: Result Comment: METH OD TRACEABLE TO IDMS STANDARD Performed By: #### 2 857-1, BMP ####[facility] ([id number])[address] [address] GFR/1.73 sq M.predicted among non-blacks MDRD (S/P/Bld) [Vol rate/Area] 59 mL/min/{1.73_m2} Low >59 [facility] Comment on above: Result Comment: Repo rted eGFR is based on theCKD-EPI 2020 equation that doesnot use a race coefficient. Performed By: #### 2 857-1, BMP ####[facility] ([id number])[address] [address] Glucose [Mass/Vol] 149 mg/dL High 65-99 [facility] Comment on above: Performed By: #### 2 857-1, BMP ####[facility] ([id number])[address] [address] [address] Potassium [Moles/Vol] 3.4 mmol/L Low 3.5-5.0 [facility] Comment on above: Performed By: #### 2 857-1, BMP ####[facility] ([id number])[address] [address] Sodium [Moles/Vol] 144 mmol/L Normal 134-146 [facility] Comment on above: Performed By: #### 2 857-1, BMP ####[facility] ([id number])[address], [address] [place] [address] Urea nitrogen [Mass/Vol] 25 mg/dL Normal 5-27 [facility] Comment on above: Performed By: #### 2 857-1, BMP ####[facility] ([id number])[address], [address] [place] [address] Measure post void residualon 03-16-2024 Volume 12ml [facility] Prostate specific Ag [Mass/V ol]on 03-16-2024 PROSTATIC SPEC ANT 3.37 ng/mL Normal 0.00-4.00 [facility] Comment on above: Result Comment: The method used for this test is [employer] DXI chemiluminescent immunoassay.Values obtained by different assay methodscannot be used interchangeably. Performed By: #### 2 857-1, BMP ####[facility] ([id number])[address], [address] [place] [address] Protime & INRon 03-11-2024 INR Coag (PPP) [Relative time] 1.6 {INR} Abnormal 0.9 - 1.1 [facility] Interpretation and review of laboratory results Abnormal [facility] Glucose Glucometer (BldC) [M ass/Vol]on 03-05-2024 Glucose [Mass/Vol] 141 mg/dL High 65-99 [facility] Protime & INRon 02-26-2024 INR Coag (PPP) [Relative time] 1.5 {INR} Abnormal 0.9 - 1.1 [facility] Interpretation and review of laboratory results Abnormal [facility] Protime & INRon 02-19-2024 INR Coag (PPP) [Relative time] 1.3 {INR} Abnormal 0.9 - 1.1 [facility] Interpretation and review of laboratory results Abnormal [facility] Protime & INRon 02-12-2024 INR Coag (PPP) [Relative time] 1.3 {INR} Abnormal 0.9 - 1.1 [facility] Interpretation and review of laboratory results Abnormal [facility] [employer] [facility] Protime & INRon 02-05-2024 INR Coag (PPP) [Relative time] 1.3 {INR} Abnormal 0.9 - 1.1 [facility] Interpretation and review of laboratory results Abnormal [facility] Protime & INRon 02-03-2024 INR Coag (PPP) [Relative time] 1.3 {INR} Abnormal 0.9 - 1.1 [facility] Interpretation and review of laboratory results Abnormal [facility] BASIC METABOLIC PANLon 02-01 Anion gap [Moles/Vol] 11 mmol/L Normal 5-15 [facility] Comment on above: Performed By: #### 1 9123-9, BMP ####[facility] ([id number])[address], [place] [address] Calcium [Mass/Vol] 8.4 mg/dL Low 8.5-10.5 [facility] Comment on above: Performed By: #### 1 9123-9, BMP ####[facility] ([id number])[address], [place] [address] Chloride [Moles/Vol] 105 mmol/L Normal 98-109 [facility] Comment on above: Performed By: #### 1 9123-9, BMP ####[facility] ([id number])[address], [place] [address] CO2 [Moles/Vol] 26 mmol/L Normal 22-32 [facility] Comment on above: Performed By: #### 1 9123-9, BMP ####[facility] ([id number])[address], [place] [address] Creatinine [Mass/Vol] 1.11 mg/dL Normal 0.60-1.30 [facility] Comment on above: Result Comment: METH OD TRACEABLE TO IDMS STANDARD Performed By: #### 1 9123-9, BMP ####[facility] ([id number])[address] [address] [place] [address] GFR/1.73 sq M.predicted among non-blacks MDRD (S/P/Bld) [Vol rate/Area] 68 mL/min/{1.73_m2} Normal >59 [facility] Comment on above: Result Comment: Repo rted eGFR is based on theCKD-EPI 2020 equation that doesnot use a race coefficient. Performed By: #### 1 9123-9, BMP ####[facility] ([id number])[address] [address], [place] [address] Glucose [Mass/Vol] 127 mg/dL High 65-99 [facility] Comment on above: Performed By: #### 1 9123-9, BMP ####[facility] ([id number])[address] [address], [place] [address] Potassium [Moles/Vol] 4.0 mmol/L Normal 3.5-5.0 [facility] Comment on above: Performed By: #### 1 9123-9, BMP ####[facility] ([id number])[address] [address] [place] [address], [place] [address] Sodium [Moles/Vol] 142 mmol/L Normal 134-146 [facility] Comment on above: Performed By: #### 1 9123-9, BMP ####[facility] ([id number])[address] [address] [place] [address], [place] [address] Urea nitrogen [Mass/Vol] 19 mg/dL Normal 5-27 [facility] Comment on above: Performed By: #### 1 9123-9, BMP ####[facility] ([id number])[address] [place] [address] MAGNESIUMon 02-02-2024 Magnesium [Mass/Vol] 1.8 mg/dL Normal 1.8-2.6 [facility] Comment on above: Performed By: #### 1 9123-9, BMP ####[facility] ([id number])[address] [facility] [address], [place] [address] Protime & INRon 01-29-2024 INR Coag (PPP) [Relative time] 1.8 {INR} Abnormal 0.9 - 1.1 [facility] Interpretation and review of laboratory results Abnormal [facility] Protime & INRon 01-26-2024 INR Coag (PPP) [Relative time] 6.9 {INR} Abnormal 0.9 - 1.1 [facility] Interpretation and review of laboratory results Abnormal [facility] CBC AND AUTO DIFFon 01-02-20 ABSOLUTE BASOPHIL 0.1 X10E9/L Normal 0.0-0.2 [facility] Comment on above: Performed By: #### C LENA PINR, RONA, 06927-0 ####[facility] ([id number])[address] [place] [address] 47747 ABSOLUTE NEUTROPHIL 11.2 X10E9/L High 1.5-6.6 [facility] Comment on above: Performed By: #### C LENA, PINR, CMP, 06579-8 ####[facility] ([id number])[address] [place] [address] 39772 Basophils/100 WBC (Bld) 0.4 % Normal [facility] Comment on above: Performed By: #### C BCA, PINR, CMP, 83859-1 ####[facility] ([id number])[address] [place] [address] 69467 Eosinophils (Bld) [#/Vol] 0.2 10*3/uL Normal 0.0-0.4 [facility] Comment on above: Performed By: #### C BCA, PINR, CMP, ####[facility] ([id number])[address] [place] [address] 65038 Eosinophils/100 WBC (Bld) 1.2 % Normal [facility] Comment on above: Performed By: #### C BCA, PINR, CMP, ####[facility] ([id number])[address] [place] [address] 21319 Erythrocyte distribution width (RBC) [Ratio] 16.8 % High 11.5-15.0 [facility] Comment on above: Performed By: #### C BCA, PINR, CMP, ####[facility] ([id number])[address] [place] [address] 39199 Hematocrit (Bld) [Volume fraction] 28.0 % Low 39-49 [facility] Comment on above: Performed By: #### C BCA, PINR, CMP, ####[facility] ([id number])[address] [place] [address] 90708 Hemoglobin (Bld) [Mass/Vol] 9.1 g/dL Low 13.0-17.0 [facility] Comment on above: Performed By: #### C BCA, PINR, CMP, ####[facility] ([id number])[address] [place] [address] 16367 Lymphocytes (Bld) [#/Vol] 2.2 10*3/uL Normal 1.0-3.5 [facility] Comment on above: Performed By: #### C BCA, PINR, CMP, ####[facility] ([id number])[address] [place] [address] 98864 Lymphocytes/100 WBC (Bld) 15.3 % Normal [facility] Comment on above: Performed By: #### C BCA, PINR, CMP, ####[facility] ([id number])[address] [place] [address] 36163 MCH (RBC) [Entitic mass] 26.1 pg Low 27-34 [facility] Comment on above: Performed By: #### C BCA, PINR, CMP, ####[facility] ([id number])[address] [place] [address] 63711 MCHC (RBC) [Mass/Vol] 32.7 g/dL Normal 32-36 [facility] Comment on above: Performed By: #### C BCA, PINR, CMP, ####[facility] ([id number])[address] [place] [address] 91497 MCV (RBC) [Entitic vol] 80 fL Normal 80-100 [facility] Comment on above: Performed By: #### Nathalie BCA, PINR, CMP, ####[facility] ([id number])[address] [place] [address] 01645 Monocytes (Bld) [#/Vol] 0.7 10*3/uL Normal 0-0.9 [facility] Comment on above: Performed By: #### C BCA, PINR, CMP, ####[facility] ([id number])[address] [place] [address] 63713 Monocytes/100 WBC (Bld) 4.8 % Normal [facility] Comment on above: Performed By: #### C BCA, PINR, CMP, ####[facility] ([id number])[address] [place] [address] 04771 Neutrophils/100 WBC (Bld) 78.3 % Normal [facility] Comment on above: Performed By: #### C BCA, PINR, CMP, ####[facility] ([id number])[address] [place] [address] 93188 Platelet mean volume (Bld) [Entitic vol] 7.4 fL Normal 7-12 [facility] Comment on above: Performed By: #### C BCA, PINR, CMP, 26619-5 ####[facility] ([id number])[address] [place] [address] 02798 Platelets (Bld) [#/Vol] 205 10*3/uL Normal 150-450 [facility] Comment on above: Performed By: #### C BCA, PINR, CMP, 27498-7 ####[facility] ([id number])[address] [place] [address] 26755 RBC COUNT 3.50 X10E12/L Low 4.10-5.70 [facility] Comment on above: Performed By: #### C BCA, PINR, CMP, 90573-2 ####[facility] ([id number])[address] [place] [address] 23606 WBC (Bld) [#/Vol] 14.3 10*3/uL High 4.0-11.0 [facility] Comment on above: Performed By: #### C BCA, PINR, CMP, 34951-5 ####[facility] ([id number])[address] [place] [address] 78045 COMPREHENSIVE METABOLIC PANE [place] 01-02-2024 Albumin [Mass/Vol] 3.1 g/dL Low 3.2-5.3 [facility] Comment on above: Performed By: #### C BCA, PINR, CMP, ####[facility] ([id number])[address] [place] [address] 86489 ALP [Catalytic activity/Vol] 83 U/L Normal 39-130 [facility] Comment on above: Performed By: #### C BCA, PINR, CMP, ####[facility] ([id number])[address] [place] [address], [place] [address] ALT [Catalytic activity/Vol] 29 U/L Normal 0-40 [facility] Comment on above: Performed By: #### C BCA, PINR, CMP, 76611-5 ####[facility] ([id number])[address] [place] [address] [place] [address] Anion gap [Moles/Vol] 12 mmol/L Normal 5-15 [facility] Comment on above: Performed By: #### C BCA, PINR, CMP, ####[facility] ([id number])[address] [place] [address] 53746 AST [Catalytic activity/Vol] 52 U/L High 0-41 [facility] Comment on above: Performed By: #### C BCA, PINR, CMP, ####[facility] ([id number])[address] [place] [address] [place] [address] Bilirubin [Mass/Vol] 0.9 mg/dL Normal 0.3-1.2 [facility] Comment on above: Performed By: #### C BCA, PINR, CMP, ####[facility] ([id number])[address] [place] [address] [place] [address] Calcium [Mass/Vol] 8.4 mg/dL Low 8.5-10.5 [facility] Comment on above: Performed By: #### C BCA, PINR, CMP, ####[facility] ([id number])[address] [place] [address] [place] [address] Chloride [Moles/Vol] 100 mmol/L Normal 98-109 [facility] Comment on above: Performed By: #### C BCA, PINR, CMP, ####[facility] ([id number])[address] [place] [address] [place] [address] CO2 [Moles/Vol] 24 mmol/L Normal 22-32 [facility] Comment on above: Performed By: #### C LENA, PINR, CMP, 15390-0 ####[facility] ([id number])[address] [place] [address] 60246 Creatinine [Mass/Vol] 1.27 mg/dL High 0.70-1.20 [facility] Comment on above: Result Comment: METH OD TRACEABLE TO IDMS STANDARD Performed By: #### C LENA PINR, CMP, 45178-3 ####[facility] ([id number])[address] [place] [address] 65749 GFR/1.73 sq M.predicted among non-blacks MDRD (S/P/Bld) [Vol rate/Area] 58 mL/min/{1.73_m2} Low >59 [facility] Comment on above: Result Comment: Repo rted eGFR is based on theCKD-EPI 2020 equation that doesnot use a race coefficient. Performed By: #### C LENA PINR, CMP, 15345-4 ####[facility] ([id number])[address] [place] [address] 89220 Glucose [Mass/Vol] 106 mg/dL High 65-99 [facility] Comment on above: Performed By: #### C LENA PINR, CMP, 95976-7 ####[facility] ([id number])[address] [place] [address] 88281 Potassium [Moles/Vol] 3.3 mmol/L Low 3.5-5.0 [facility] Comment on above: Performed By: #### C LENA, PINR, CMP, 90023-4 ####[facility] ([id number])[address] [place] [address] 37413 Protein [Mass/Vol] 7.6 g/dL Normal 6.0-8.0 [facility] Comment on above: Performed By: #### C LENA, PINR, CMP, 40488-2 ####[facility] ([id number])[address] [place] [address] 68190 Sodium [Moles/Vol] 136 mmol/L Normal 134-146 [facility] Comment on above: Performed By: #### C LENA, PINR, CMP, ####[facility] ([id number])[address] [place] [address] 47767 Urea nitrogen [Mass/Vol] 32 mg/dL High 5-27 [facility] Comment on above: Performed By: #### C LENA, PINR, CMP, ####[facility] ([id number])[address] [place] [address] 85809 Glucose Glucometer (BldC) [M ass/Vol]on 01-02-2024 Glucose [Mass/Vol] 109 mg/dL High 65-99 [facility] MAGNESIUMon 01-02-2024 Magnesium [Mass/Vol] 2.2 mg/dL Normal 1.8-2.6 [facility] Comment on above: Performed By: #### C LENA, PINR, CMP, ####[facility] ([id number])[address] [place] [address] 20366 PROTIME AND INRon 01-02-2024 INR Coag (PPP) [Relative time] 1.7 {INR} High 0.8-1.1 [facility] Comment on above: Performed By: #### C LENA, PINR, CMP, 79080-3 ####[facility] ([id number])[address] [place] [address] 24990 PT Coag (PPP) [Time] 19.3 s High 9.8-13.2 [facility] Comment on above: Result Comment: NEW REFERENCE RANGE Performed By: #### C BCA, PINR, CMP, ####[facility] ([id number])[address] [place] [address] Surgical Pathologyon 024 Surgical Pathology Normal [facility] Comment on above: Result Comment: [facility] [address] [place] [address] Surgical Pathology ConsultationPatient Name:SHEEBA ADAMES:1945 (Age: 78)Gender:MTaken:4Reported:01/07/2024hysician(s):Olinda Lau MD ([phone])Copy To:Eris Rodriguez [facility] #:[id number]. Rec. #:[id number]: #[id number] Pathologic Diagnosis1. Gastric biopsy: Mild chronic inactive gastritis: Negative for intestinal metaplasia. Immunohistochemical stain for Helicobacter pylori (with adequate control) is negative.2. Gastric cardia biopsy: Mild active chronic erosive gastritis. No dysplasia or intestinal metaplasia identified. Immunohistochemical stain for Helicobacter pylori (with adequate control) is negative.3. GE junction biopsy: Benign squamous esophageal mucosa showing acute esophagitis with focal erosion (see comment). Minute, detached fragment of unremarkable columnar epithelium. No viral inclusions, dysplasia or goblet cell metaplasia identified. PAS stain (with adequate control) is negative for fungi.Comment: Acute esophagitis is a nonspecific injury pattern with etiologic considerations that include infection, certain medications and severe gastroesophageal reflux disease, among others. Clinical correlation recommended. Report Electronically Signed Outao/4Aolvin Winters MDInterpretation performed at [facility], [address] [place] [address], License number: [id number].Clinical HistoryAnemia.Gross Description1. Received in formalin labeled ZACARIAS, gastric BX is a light mai soft tissue bit, 0.2 cm. The specimen is filtered and entirely submitted in a single cassette. (1, ns, [id number],m3) DM.2. Received in formalin labeled ADAMES, gastric cardia BX is a mai soft tissue bit, 0.2 cm. The specimen is filtered and entirely submitted in a single cassette. (1, ns, [id number],m3) DM.3. Received in formalin labeled ADAMES, G junction mucosa BX are pale-mai feathery soft tissue fragments, 0.2 x 0.2 x 0.1 cm in aggregate. The specimen is filtered and entirely submitted in a single cassette. (1, ns, [id number],m3) DM.dm/01/03/2024GRSpecimen(s) Received1: Gastric bx2: Gastric cardia ulcer bx at hiatal hernia3: G-junction mucosa bxFee Codes(s):1; 77223, 179036; 74539, 917366; 65071, 03950 CBC AND AUTO DIFFon 01-01-20 24 ABSOLUTE BASOPHIL 0.1 X10E9/L Normal 0.0-0.2 [facility] Comment on above: Performed By: #### P INR, CMP, , CBCA ####[facility] ([id number])[address] [place] [address] 19829 ABSOLUTE NEUTROPHIL 14.1 X10E9/L High 1.5-6.6 [facility] Comment on above: Performed By: #### P INR, CMP, , CBCA ####[facility] ([id number])[address] [place] [address] 59293 Basophils/100 WBC (Bld) 0.5 % Normal [facility] Comment on above: Performed By: #### P INR, CMP, , CBCA ####[facility] ([id number])[address] [place] [address] 10289 Eosinophils (Bld) [#/Vol] 0.3 10*3/uL Normal 0.0-0.4 [facility] Comment on above: Performed By: #### P INR, CMP, , CBCA ####[facility] ([id number])[address] [place] [address] 53752 Eosinophils/100 WBC (Bld) 1.4 % Normal [facility] Comment on above: Performed By: #### P INR, CMP, , CBCA ####[facility] ([id number])[address] [place] [address] 75484 Erythrocyte distribution width (RBC) [Ratio] 16.3 % High 11.5-15.0 [facility] Comment on above: Performed By: #### P INR, CMP, , CBCA ####[facility] ([id number])[address] [place] [address] 47308 Hematocrit (Bld) [Volume fraction] 28.9 % Low 39-49 [facility] Comment on above: Performed By: #### P INR, CMP, , CBCA ####[facility] ([id number])[address] [place] [address] 71406 Hemoglobin (Bld) [Mass/Vol] 9.5 g/dL Low 13.0-17.0 [facility] Comment on above: Performed By: #### P INR, CMP, , CBCA ####[facility] ([id number])[address] [place] [address] 29679 Lymphocytes (Bld) [#/Vol] 2.7 10*3/uL Normal 1.0-3.5 [facility] Comment on above: Performed By: #### P INR, CMP, , CBCA ####[facility] ([id number])[address] [place] [address] 08778 Lymphocytes/100 WBC (Bld) 14.9 % Normal [facility] Comment on above: Performed By: #### P INR, CMP, , CBCA ####[facility] ([id number])[address] [place] [address] 22846 MCH (RBC) [Entitic mass] 26.1 pg Low 27-34 [facility] Comment on above: Performed By: #### P INR, CMP, , CBCA ####[facility] ([id number])[address] [place] [address] 73333 MCHC (RBC) [Mass/Vol] 32.8 g/dL Normal 32-36 [facility] Comment on above: Performed By: #### P INR, CMP, , CBCA ####[facility] ([id number])[address] [place] [address] 43872 MCV (RBC) [Entitic vol] 79 fL Low 80-100 [facility] Comment on above: Performed By: #### P INR, CMP, , CBCA ####[facility] ([id number])[address] [place] [address] 64314 Monocytes (Bld) [#/Vol] 1.0 10*3/uL High 0-0.9 [facility] Comment on above: Performed By: #### P INR, CMP, , CBCA ####[facility] ([id number])[address] [place] [address] 98529 Monocytes/100 WBC (Bld) 5.6 % Normal [facility] Comment on above: Performed By: #### P INR, CMP, , CBCA ####[facility] ([id number])[address] [place] [address] 19699 Neutrophils/100 WBC (Bld) 77.6 % Normal [facility] Comment on above: Performed By: #### P INR, CMP, , CBCA ####[facility] ([id number])[address] [place] [address] 50759 Platelet mean volume (Bld) [Entitic vol] 7.4 fL Normal 7-12 [facility] Comment on above: Performed By: #### P INR, CMP, , CBCA ####[facility] ([id number])[address] [place] [address] 18595 Platelets (Bld) [#/Vol] 278 10*3/uL Normal 150-450 [facility] Comment on above: Performed By: #### P INR, CMP, , CBCA ####[facility] ([id number])[address] [place] [address] 33771 RBC COUNT 3.64 X10E12/L Low 4.10-5.70 [facility] Comment on above: Performed By: #### P INR, CMP, , CBCA ####[facility] ([id number])[address] [place] [address] 42617 WBC (Bld) [#/Vol] 18.2 10*3/uL High 4.0-11.0 [facility] Comment on above: Performed By: #### P INR, CMP, , CBCA ####[facility] ([id number])[address] [place] [address] 57013 COMPREHENSIVE METABOLIC PANE [place] 01-01-2024 Albumin [Mass/Vol] 3.4 g/dL Normal 3.2-5.3 [facility] Comment on above: Performed By: #### P INR, CMP, , CBCA ####[facility] ([id number])[address] [place] [address] 34310 ALP [Catalytic activity/Vol] 81 U/L Normal 39-130 [facility] Comment on above: Performed By: #### P INR, CMP, , CBCA ####[facility] ([id number])[address] [place] [address] 15286 ALT [Catalytic activity/Vol] 33 U/L Normal 0-40 [facility] Comment on above: Performed By: #### P INR, CMP, , CBCA ####[facility] ([id number])[address] [place] [address] 85673 Anion gap [Moles/Vol] 14 mmol/L Normal 5-15 [facility] Comment on above: Performed By: #### P INR, CMP, , CBCA ####[facility] ([id number])[address] [place] [address] 82089 AST [Catalytic activity/Vol] 36 U/L Normal 0-41 [facility] Comment on above: Performed By: #### P INR, CMP, , CBCA ####[facility] ([id number])[address] [place] [address] 64742 Bilirubin [Mass/Vol] 1.0 mg/dL Normal 0.3-1.2 [facility] Comment on above: Performed By: #### P INR, CMP, , CBCA ####[facility] ([id number])[address] [place] [address] 58386 Calcium [Mass/Vol] 8.6 mg/dL Normal 8.5-10.5 [facility] Comment on above: Performed By: #### P INR, CMP, , CBCA ####[facility] ([id number])[address] [place] [address] 33989 Chloride [Moles/Vol] 97 mmol/L Low 98-109 [facility] Comment on above: Performed By: #### P INR, CMP, , CBCA ####[facility] ([id number])[address] [place] [address] 49754 CO2 [Moles/Vol] 23 mmol/L Normal 22-32 [facility] Comment on above: Performed By: #### P INR, CMP, , CBCA ####[facility] ([id number])[address] [place] [address] 19156 Creatinine [Mass/Vol] 1.51 mg/dL High 0.70-1.20 [facility] Comment on above: Result Comment: METH OD TRACEABLE TO IDMS STANDARD Performed By: #### P INR, CMP, , CBCA ####[facility] ([id number])[address] [place] [address] 75881 GFR/1.73 sq M.predicted among non-blacks MDRD (S/P/Bld) [Vol rate/Area] 47 mL/min/{1.73_m2} Low >59 [facility] Comment on above: Result Comment: Repo rted eGFR is based on theCKD-EPI 2020 equation that doesnot use a race coefficient. Performed By: #### P INR, CMP, , CBCA ####[facility] ([id number])[address] [place] [address] 52576 Glucose [Mass/Vol] 145 mg/dL High 65-99 [facility] Comment on above: Performed By: #### P INR, CMP, , CBCA ####[facility] ([id number])[address] [place] [address] 49334 Potassium [Moles/Vol] 4.4 mmol/L Normal 3.5-5.0 [facility] Comment on above: Performed By: #### P INR, CMP, , CBCA ####[facility] ([id number])[address] [place] [address] 63830 Protein [Mass/Vol] 8.1 g/dL High 6.0-8.0 [facility] Comment on above: Performed By: #### P INR, CMP, , CBCA ####[facility] ([id number])[address] [place] [address] 37101 Sodium [Moles/Vol] 134 mmol/L Normal 134-146 [facility] Comment on above: Performed By: #### P INR, CMP, , CBCA ####[facility] ([id number])[address] [place] [address] 00917 Urea nitrogen [Mass/Vol] 36 mg/dL High 5-27 [facility] Comment on above: Performed By: #### P INR, CMP, , CBCA ####[facility] ([id number])[address] [place] [address] 45451 Glucose Glucometer (BldC) [M ass/Vol]on 01-01-2024 Glucose [Mass/Vol] 120 mg/dL High 65-99 [facility] Glucose [Mass/Vol] 151 mg/dL High 65-99 [facility] Glucose [Mass/Vol] 183 mg/dL High 65-99 [facility] HGB AND HCTon 01-01-2024 Hematocrit (Bld) [Volume fraction] 27.3 % Low 39-49 [facility] Comment on above: Performed By: #### H H ####[facility] ([id number])[address] [place] [address] 04991 Hemoglobin (Bld) [Mass/Vol] 9.1 g/dL Low 13.0-17.0 [facility] Comment on above: Performed By: #### H H ####[facility] ([id number])[address] [place] [address] 38266 MAGNESIUMon 01-01-2024 Magnesium [Mass/Vol] 2.1 mg/dL Normal 1.8-2.6 [facility] Comment on above: Performed By: #### P INR, CMP, , CBCA ####[facility] ([id number])[address] [place] [address] 12377 PROTIME AND INRon 01-01-2024 INR Coag (PPP) [Relative time] 1.5 {INR} High 0.8-1.1 [facility] Comment on above: Performed By: #### P INR, [facility], , CBCA ####[facility] ([id number])[address] [place] [address] 63694 PT Coag (PPP) [Time] 16.7 s High 9.8-13.2 [facility] Comment on above: Result Comment: NEW REFERENCE RANGE Performed By: #### P INR, CMP, , CBCA ####[facility] ([id number])[address] [place] [address] 31230 CBC AND AUTO DIFFon 12-31-19 ABSOLUTE BASOPHIL 0.1 X10E9/L Normal 0.0-0.2 [facility] Comment on above: Performed By: #### C BCA, PINR, CMP, ####[facility] ([id number])[address] [place] [address] 73210 ABSOLUTE NEUTROPHIL 10.6 X10E9/L High 1.5-6.6 [facility] Comment on above: Performed By: #### C BCA, PINR, CMP, ####[facility] ([id number])[address] [place] [address] 16141 Basophils/100 WBC (Bld) 0.5 % Normal [facility] Comment on above: Performed By: #### C BCA, PINR, CMP, ####[facility] ([id number])[address] [place] [address] 51225 Eosinophils (Bld) [#/Vol] 0.2 10*3/uL Normal 0.0-0.4 [facility] Comment on above: Performed By: #### C BCA, PINR, CMP, ####[facility] ([id number])[address] [place] [address] 86295 Eosinophils/100 WBC (Bld) 1.2 % Normal [facility] Comment on above: Performed By: #### C LENA, PINR, CMP, ####[facility] ([id number])[address] [place] [address] 90452 Erythrocyte distribution width (RBC) [Ratio] 16.2 % High 11.5-15.0 [facility] Comment on above: Performed By: #### C LENA, PINR, CMP, ####[facility] ([id number])[address] [place] [address] 21290 Hematocrit (Bld) [Volume fraction] 26.6 % Low 39-49 [facility] Comment on above: Performed By: #### C BCA, PINR, CMP, ####[facility] ([id number])[address] [place] [address] 30204 Hemoglobin (Bld) [Mass/Vol] 8.9 g/dL Low 13.0-17.0 [facility] Comment on above: Performed By: #### C BCA, PINR, CMP, ####[facility] ([id number])[address] [place] [address] 79915 Lymphocytes (Bld) [#/Vol] 2.3 10*3/uL Normal 1.0-3.5 [facility] Comment on above: Performed By: #### C BCA, PINR, CMP, ####[facility] ([id number])[address] [place] [address] 92872 Lymphocytes/100 WBC (Bld) 16.5 % Normal [facility] Comment on above: Performed By: #### C BCA, PINR, CMP, ####[facility] ([id number])[address] [place] [address] 42250 MCH (RBC) [Entitic mass] 26.3 pg Low 27-34 [facility] Comment on above: Performed By: #### C BCA, PINR, CMP, ####[facility] ([id number])[address] [place] [address] 22491 MCHC (RBC) [Mass/Vol] 33.3 g/dL Normal 32-36 [facility] Comment on above: Performed By: #### C BCA, PINR, CMP, ####[facility] ([id number])[address] [place] [address] 35368 MCV (RBC) [Entitic vol] 79 fL Low 80-100 [facility] Company Comment on above: Performed By: #### C BCA, PINR, CMP, ####[facility] ([id number])[address] [place] [address] 21223 Monocytes (Bld) [#/Vol] 0.7 10*3/uL Normal 0-0.9 [facility] Comment on above: Performed By: #### C BCA, PINR, CMP, ####[facility] ([id number])[address] [place] [address] 25724 Monocytes/100 WBC (Bld) 5.4 % Normal [facility] Comment on above: Performed By: #### C BCA, PINR, CMP, ####[facility] ([id number])[address] [place] [address] 83515 Neutrophils/100 WBC (Bld) 76.4 % Normal [facility] Comment on above: Performed By: #### C BCA, PINR, CMP, ####[facility] ([id number])[address] [place] [address] 69573 Platelet mean volume (Bld) [Entitic vol] 7.4 fL Normal 7-12 [facility] Comment on above: Performed By: #### C BCA, PINR, CMP, ####[facility] ([id number])[address] [place] [address] 61768 Platelets (Bld) [#/Vol] 211 10*3/uL Normal 150-450 [facility] Comment on above: Performed By: #### C BCA, PINR, CMP, ####[facility] ([id number])[address] [place] [address] 72824 RBC COUNT 3.37 X10E12/L Low 4.10-5.70 [facility] Comment on above: Performed By: #### C BCA, PINR, CMP, ####[facility] ([id number])[address] [place] [address] 67896 WBC (Bld) [#/Vol] 13.9 10*3/uL High 4.0-11.0 [facility] Comment on above: Performed By: #### C BCA, PINR, CMP, 20190-6 ####[facility] ([id number])[address] [place] [address] 66169 COMPREHENSIVE METABOLIC PANE [place] 12-31-2023 Albumin [Mass/Vol] 3.3 g/dL Normal 3.2-5.3 [facility] Comment on above: Performed By: #### C BCA, PINR, CMP, ####[facility] ([id number])[address] [place] [address] 13466 ALP [Catalytic activity/Vol] 75 U/L Normal 39-130 [facility] Comment on above: Performed By: #### C BCA, PINR, CMP, ####[facility] ([id number])[address] [place] [address], [place] [address] ALT [Catalytic activity/Vol] 33 U/L Normal 0-40 [facility] Comment on above: Performed By: #### C BCA, PINR, CMP, 17041-1 ####[facility] ([id number])[address] [place] [address] [place] [address] Anion gap [Moles/Vol] 10 mmol/L Normal 5-15 [facility] Comment on above: Performed By: #### C BCA, PINR, CMP, ####[facility] ([id number])[address] [place] [address] 02939 AST [Catalytic activity/Vol] 31 U/L Normal 0-41 [facility] Comment on above: Performed By: #### C BCA, PINR, CMP, ####[facility] ([id number])[address] [place] [address] [place] [address] Bilirubin [Mass/Vol] 1.0 mg/dL Normal 0.3-1.2 [facility] Comment on above: Performed By: #### C BCA, PINR, CMP, ####[facility] ([id number])[address] [place] [address] [place] [address] Calcium [Mass/Vol] 8.5 mg/dL Normal 8.5-10.5 [facility] Comment on above: Performed By: #### C BCA, PINR, CMP, ####[facility] ([id number])[address] [place] [address] [place] [address] Chloride [Moles/Vol] 97 mmol/L Low 98-109 [facility] Comment on above: Performed By: #### C BCA, PINR, CMP, ####[facility] ([id number])[address] [place] [address] [place] [address] CO2 [Moles/Vol] 29 mmol/L Normal 22-32 [facility] Comment on above: Performed By: #### C BCA, PINR, CMP, 32185-4 ####[facility] ([id number])[address] [place] [address] 57941 Creatinine [Mass/Vol] 1.45 mg/dL High 0.70-1.20 [facility] Comment on above: Result Comment: METH OD TRACEABLE TO IDMS STANDARD Performed By: #### C BCA, PINR, CMP, 84186-6 ####[facility] ([id number])[address] [place] [address] 03736 GFR/1.73 sq M.predicted among non-blacks MDRD (S/P/Bld) [Vol rate/Area] 49 mL/min/{1.73_m2} Low >59 [facility] Comment on above: Result Comment: Repo rted eGFR is based on theCKD-EPI 2020 equation that doesnot use a race coefficient. Performed By: #### C BCA, PINR, CMP, 38577-9 ####[facility] ([id number])[address] [place] [address] 43101 Glucose [Mass/Vol] 140 mg/dL High 65-99 [facility] Comment on above: Performed By: #### C BCA, PINR, CMP, 57234-4 ####[facility] ([id number])[address] [place] [address] 37063 Potassium [Moles/Vol] 4.3 mmol/L Normal 3.5-5.0 [facility] Comment on above: Performed By: #### C BCA, PINR, CMP, 96813-4 ####[facility] ([id number])[address] [place] [address] 91684 Protein [Mass/Vol] 7.5 g/dL Normal 6.0-8.0 [facility] Comment on above: Performed By: #### C BCA, PINR, CMP, 96971-9 ####[facility] ([id number])[address] [place] [address], [place] [address] Sodium [Moles/Vol] 136 mmol/L Normal 134-146 [facility] Comment on above: Performed By: #### C BCA, PINR, CMP, 07563-3 ####[facility] ([id number])[address] [place] [address], [place] [address] Urea nitrogen [Mass/Vol] 36 mg/dL High 5-27 [facility] Comment on above: Performed By: #### C BCA, PINR, CMP, 54598-6 ####[facility] ([id number])[address] [place] [address], [place] [address] ELECTROLYTESon 12-31-2023 Anion gap [Moles/Vol] 8 mmol/L Normal 5-15 [facility] Comment on above: Performed By: #### E LEC ####[facility] ([id number])[address] [place] [address], [place] [address] Chloride [Moles/Vol] 100 mmol/L Normal 98-109 [facility] Comment on above: Performed By: #### E LEC ####[facility] ([id number])[address] [place] [address] [place] [address] CO2 [Moles/Vol] 26 mmol/L Normal 22-32 [facility] Comment on above: Performed By: #### E LEC ####[facility] ([id number])[address] [place] [address], [place] [address] Potassium [Moles/Vol] 4.2 mmol/L Normal 3.5-5.0 [facility] Comment on above: Performed By: #### E LEC ####[facility] ([id number])[address] [place] [address], [place] [address] Sodium [Moles/Vol] 134 mmol/L Normal 134-146 [facility] Comment on above: Performed By: #### E LEC ####[facility] ([id number])[address] [place] [address], [place] [address] Anion gap [Moles/Vol] 14 mmol/L Normal 5-15 [facility] Comment on above: Performed By: #### E LEC ####[facility] ([id number])[address] [place] [address], [place] [address] Chloride [Moles/Vol] 98 mmol/L Normal 98-109 [facility] Comment on above: Performed By: #### E LEC ####[facility] ([id number])[address] [place] [address], [place] [address] CO2 [Moles/Vol] 22 mmol/L Normal 22-32 [facility] Comment on above: Performed By: #### E LEC ####[facility] ([id number])[address] [place] [address], [place] [address] Potassium [Moles/Vol] 5.5 mmol/L High 3.5-5.0 [facility] Comment on above: Result Comment: SPEC IMEN HEMOLYZED, RESULTS INCREASED Performed By: #### E LEC ####[facility] ([id number])[address] [place] [address] 88140 Glucose Glucometer (BldC) [M ass/Vol]on 12-31-2023 Glucose [Mass/Vol] 124 mg/dL High 65-99 [facility] Glucose [Mass/Vol] 144 mg/dL High 65-99 [facility] Glucose [Mass/Vol] 247 mg/dL High 65-99 [facility] HGB AND HCTon 12-31-2023 Hematocrit (Bld) [Volume fraction] 25.5 % Low 39-49 [facility] Comment on above: Performed By: #### H H ####[facility] ([id number])[address] [place] [address] 01603 Hemoglobin (Bld) [Mass/Vol] 8.6 g/dL Low 13.0-17.0 [facility] Comment on above: Performed By: #### H H ####[facility] ([id number])[address] [place] [address] 39803 MAGNESIUMon 12-31-2023 Magnesium [Mass/Vol] 2.0 mg/dL Normal 1.8-2.6 [facility] Comment on above: Performed By: #### 1 9123-9 ####[facility] ([id number])[address] [place] [address] 46723 Magnesium [Mass/Vol] 1.9 mg/dL Normal 1.8-2.6 [facility] Comment on above: Performed By: #### C LENA, PINR, CMP, ####[facility] ([id number])[address] [place] [address] 20390 PROTIME AND INRon 12-31-2023 INR Coag (PPP) [Relative time] 1.4 {INR} High 0.8-1.1 [facility] Comment on above: Performed By: #### C BCA, PINR, CMP, ####[facility] ([id number])[address] [place] [address] 25451 PT Coag (PPP) [Time] 16.4 s High 9.8-13.2 [facility] Comment on above: Result Comment: NEW REFERENCE RANGE Performed By: #### C BCA, PINR, CMP, ####[facility] ([id number])[address] [place] [address] 05386 CBC AND AUTO DIFFon 12-30-19 24 ABSOLUTE BASOPHIL 0.1 X10E9/L Normal 0.0-0.2 [facility] Comment on above: Performed By: #### C MP, CBCA, , PINR ####[facility] ([id number])[address] [place] [address] 80338 ABSOLUTE NEUTROPHIL 9.1 X10E9/L High 1.5-6.6 [facility] Comment on above: Performed By: #### C MP, CBCA, , PINR ####[facility] ([id number])[address] [place] [address] 19189 Basophils/100 WBC (Bld) 0.4 % Normal [facility] Comment on above: Performed By: #### C EVITA, CBCA, , PINR ####[facility] ([id number])[address] [place] [address] 54196 Eosinophils (Bld) [#/Vol] 0.2 10*3/uL Normal 0.0-0.4 [facility] Comment on above: Performed By: #### C MP, CBCA, , PINR ####[facility] ([id number])[address] [place] [address] 56230 Eosinophils/100 WBC (Bld) 1.6 % Normal [facility] Comment on above: Performed By: #### C EVITA, CBCA, , PINR ####[facility] ([id number])[address] [place] [address] 64150 Erythrocyte distribution width (RBC) [Ratio] 16.0 % High 11.5-15.0 [facility] Comment on above: Performed By: #### C MP, CBCA, , PINR ####[facility] ([id number])[address] [place] [address] 76719 Hematocrit (Bld) [Volume fraction] 20.8 % Low 39-49 [facility] Comment on above: Performed By: #### C MP, CBCA, , PINR ####[facility] ([id number])[address] [place] [address] 90737 Hemoglobin (Bld) [Mass/Vol] 6.9 g/dL Critically low 13.0-17.0 [facility] Comment on above: Performed By: #### C EVITA, CBCA, , PINR ####[facility] ([id number])[address] [place] [address] 89542 Lymphocytes (Bld) [#/Vol] 2.1 10*3/uL Normal 1.0-3.5 [facility] Comment on above: Performed By: #### C EVITA, CBCA, , PINR ####[facility] ([id number])[address] [place] [address] 84493 Lymphocytes/100 WBC (Bld) 17.0 % Normal [facility] Comment on above: Performed By: #### C EVITA, CBCA, , PINR ####[facility] ([id number])[address] [place] [address] 67995 MCH (RBC) [Entitic mass] 25.9 pg Low 27-34 [facility] Comment on above: Performed By: #### C EVITA, CBCA, , PINR ####[facility] ([id number])[address] [place] [address] 44902 MCHC (RBC) [Mass/Vol] 33.3 g/dL Normal 32-36 [facility] Comment on above: Performed By: #### C EVITA, CBCA, , PINR ####[facility] ([id number])[address] [place] [address] 62100 MCV (RBC) [Entitic vol] 78 fL Low 80-100 [facility] Comment on above: Performed By: #### C EVITA, CBCA, , PINR ####[facility] ([id number])[address] [place] [address] 19347 Monocytes (Bld) [#/Vol] 0.7 10*3/uL Normal 0-0.9 [facility] Comment on above: Performed By: #### C MP, CBCA, , PINR ####[facility] ([id number])[address] [place] [address] 09736 Monocytes/100 WBC (Bld) 5.5 % Normal [facility] Comment on above: Performed By: #### C MP, CBCA, , PINR ####[facility] ([id number])[address] [place] [address] 65030 Neutrophils/100 WBC (Bld) 75.5 % Normal [facility] Comment on above: Performed By: #### C MP, CBCA, , PINR ####[facility] ([id number])[address] [place] [address] [place] [address] Platelet mean volume (Bld) [Entitic vol] 7.1 fL Normal 7-12 [facility] Comment on above: Performed By: #### C MP, CBCA, , PINR ####[facility] ([id number])[address] [place] [address] 90663 Platelets (Bld) [#/Vol] 186 10*3/uL Normal 150-450 [facility] Comment on above: Performed By: #### C MP, CBCA, , PINR ####[facility] ([id number])[address] [place] [address] 94610 RBC COUNT 2.67 X10E12/L Low 4.10-5.70 [facility] Comment on above: Performed By: #### C MP, CBCA, , PINR ####[facility] ([id number])[address] [place] [address] [place] [address] WBC (Bld) [#/Vol] 12.1 10*3/uL High 4.0-11.0 [facility] Comment on above: Performed By: #### C EVITA, CBCA, , PINR ####[facility] ([id number])[address] [place] [address] 42758 COMPREHENSIVE METABOLIC PANE [place] 12-30-2023 Albumin [Mass/Vol] 3.5 g/dL Normal 3.2-5.3 [facility] Comment on above: Performed By: #### C EVITA CBCA, , PINR ####[facility] ([id number])[address] [place] [address] 68262 ALP [Catalytic activity/Vol] 58 U/L Normal 39-130 [facility] Comment on above: Performed By: #### C EVITA, CBCA, , PINR ####[facility] ([id number])[address] [place] [address] 87801 ALT [Catalytic activity/Vol] 23 U/L Normal 0-40 [facility] Comment on above: Performed By: #### C EVITA CBCA, , PINR ####[facility] ([id number])[address] [place] [address] [place] [address] Anion gap [Moles/Vol] 11 mmol/L Normal 5-15 [facility] Comment on above: Performed By: #### C EVITA, CBCA, , PINR ####[facility] ([id number])[address] [place] [address] 95233 AST [Catalytic activity/Vol] 18 U/L Normal 0-41 [facility] Comment on above: Performed By: #### C EVITA, CBCA, , PINR ####[facility] ([id number])[address] [place] [address] 84696 Bilirubin [Mass/Vol] 0.9 mg/dL Normal 0.3-1.2 [facility] Comment on above: Performed By: #### C MANUELA JAMA, , PINR ####[facility] ([id number])[address] [place] [address] 19291 Calcium [Mass/Vol] 8.5 mg/dL Normal 8.5-10.5 [facility] Comment on above: Performed By: #### C MANUELA JAMA, , PINR ####[facility] ([id number])[address] [place] [address] 49389 Chloride [Moles/Vol] 95 mmol/L Low 98-109 [facility] Comment on above: Performed By: #### C MANUELA JAMA, , PINR ####[facility] ([id number])[address] [place] [address] 56883 CO2 [Moles/Vol] 30 mmol/L Normal 22-32 [facility] Comment on above: Performed By: #### C MANUELA JAMA, , PINR ####[facility] ([id number])[address] [place] [address] 35719 Creatinine [Mass/Vol] 1.41 mg/dL High 0.70-1.20 [facility] Comment on above: Result Comment: METH OD TRACEABLE TO IDMS STANDARD Performed By: #### C MANUELA JAMA, , PINR ####[facility] ([id number])[address] [place] [address] 42700 GFR/1.73 sq M.predicted among non-blacks MDRD (S/P/Bld) [Vol rate/Area] 51 mL/min/{1.73_m2} Low >59 [facility] Comment on above: Result Comment: Repo rted eGFR is based on theD-EPI 2020 equation that doesnot use a race coefficient. Performed By: #### C MANUELA JAMA, , PINR ####[facility] ([id number])[address] [place] [address] [place] [address] Glucose [Mass/Vol] 166 mg/dL High 65-99 [facility] Comment on above: Performed By: #### C MANUELA JAMA, , PINR ####[facility] ([id number])[address] [place] [address] 03113 Potassium [Moles/Vol] 4.0 mmol/L Normal 3.5-5.0 [facility] Comment on above: Performed By: #### C MANUELA JAMA, , PINR ####[facility] ([id number])[address] [place] [address] [place] [address] Protein [Mass/Vol] 7.2 g/dL Normal 6.0-8.0 [facility] Comment on above: Performed By: #### C MANUELA JAMA, , PINR ####[facility] ([id number])[address] [place] [address] [place] [address] Sodium [Moles/Vol] 136 mmol/L Normal 134-146 [facility] Comment on above: Performed By: #### C MANUELA JAMA, , PINR ####[facility] ([id number])[address] [place] [address] [place] [address] Urea nitrogen [Mass/Vol] 37 mg/dL High 5-27 [facility] Comment on above: Performed By: #### C MANUELA JAMA, , PINR ####[facility] ([id number])[address] [place] [address] [place] [address] ELECTROLYTESon 12-30-2023 Anion gap [Moles/Vol] 7 mmol/L Normal 5-15 [facility] Comment on above: Performed By: #### E LEC ####[facility] ([id number])[address] [place] [address], [place] [address] Chloride [Moles/Vol] 98 mmol/L Normal 98-109 [facility] Comment on above: Performed By: #### E LEC ####[facility] ([id number])[address] [place] [address], [place] [address] CO2 [Moles/Vol] 28 mmol/L Normal 22-32 [facility] Comment on above: Performed By: #### E LEC ####[facility] ([id number])[address] [place] [address], [place] [address] Potassium [Moles/Vol] 4.0 mmol/L Normal 3.5-5.0 [facility] Comment on above: Performed By: #### E LEC ####[facility] ([id number])[address] [place] [address], [place] [address] Sodium [Moles/Vol] 133 mmol/L Low 134-146 [facility] Comment on above: Performed By: #### E LEC ####[facility] ([id number])[address] [place] [address], [place] [address] Anion gap [Moles/Vol] 13 mmol/L Normal 5-15 [facility] Comment on above: Performed By: #### 7 , 29070-4, ELEC ####[facility] ([id number])[address] [place] [address], [place] [address] Chloride [Moles/Vol] 95 mmol/L Low 98-109 [facility] Comment on above: Performed By: #### 7 , 90501-5, ELEC ####[facility] ([id number])[address] [place] [address], [place] [address] CO2 [Moles/Vol] 26 mmol/L Normal 22-32 [facility] Comment on above: Performed By: #### 7 , , ELEC ####[facility] ([id number])[address] [place] [address] 97821 Potassium [Moles/Vol] 4.3 mmol/L Normal 3.5-5.0 [facility] Comment on above: Performed By: #### 7 , , ELEC ####[facility] ([id number])[address] [place] [address] 08876 Sodium [Moles/Vol] 134 mmol/L Normal 134-146 [facility] Comment on above: Performed By: #### 7 , , ELEC ####[facility] ([id number])[address] [place] [address] 57236 Glucose Glucometer (BldC) [M ass/Vol]on 12-30-2023 Glucose [Mass/Vol] 226 mg/dL High 65-99 [facility] Glucose [Mass/Vol] 233 mg/dL High 65-99 [facility] Glucose [Mass/Vol] 254 mg/dL High 65-99 [facility] Glucose [Mass/Vol] 166 mg/dL High 65-99 [facility] HEMOGLOBINon 12-30-2023 Hemoglobin (Bld) [Mass/Vol] 8.6 g/dL Low 13.0-17.0 [facility] Comment on above: Performed By: #### 7 , , ELEC ####[facility] ([id number])[address] [place] [address] 79546 MAGNESIUMon 12-30-2023 Magnesium [Mass/Vol] 2.0 mg/dL Normal 1.8-2.6 [facility] Comment on above: Performed By: #### 7 , , ELEC ####[facility] ([id number])[address] [place] [address] [place] [address] Magnesium [Mass/Vol] 1.7 mg/dL Low 1.8-2.6 [facility] Comment on above: Performed By: #### C MP, CBCA, , PINR ####[facility] ([id number])[address] [place] [address] 97966 PROTIME AND INRon 12-30-2023 INR Coag (PPP) [Relative time] 1.8 {INR} High 0.8-1.1 [facility] Comment on above: Performed By: #### C MP, CBCA, , PINR ####[facility] ([id number])[address] [place] [address] 80538 PT Coag (PPP) [Time] 20.1 s High 9.8-13.2 [facility] Comment on above: Result Comment: NEW REFERENCE RANGE Performed By: #### C MP, CBCA, , PINR ####[facility] ([id number])[address] [place] [address] 34835 CBC AND AUTO DIFFon 12-29-19 24 ABSOLUTE BASOPHIL 0.1 X10E9/L Normal 0.0-0.2 [facility] Comment on above: Performed By: #### 1 9123-9, CBCA, PINR, CMP ####[facility] ([id number])[address] [place] [address] 32872 ABSOLUTE NEUTROPHIL 10.5 X10E9/L High 1.5-6.6 [facility] Comment on above: Performed By: #### 1 9123-9, CBCA, PINR, CMP ####[facility] ([id number])[address] [place] [address] 42940 Basophils/100 WBC (Bld) 0.5 % Normal [facility] Comment on above: Performed By: #### 1 9123-9, CBCA, PINR, CMP ####[facility] ([id number])[address] [place] [address] 11288 Eosinophils (Bld) [#/Vol] 0.2 10*3/uL Normal 0.0-0.4 [facility] Comment on above: Performed By: #### 1 9123-9, CBCA, PINR, CMP ####[facility] ([id number])[address] [place] [address] 96400 Eosinophils/100 WBC (Bld) 1.4 % Normal [facility] Comment on above: Performed By: #### 1 9123-9, CBCA, PINR, CMP ####[facility] ([id number])[address] [place] [address] 93210 Erythrocyte distribution width (RBC) [Ratio] 16.1 % High 11.5-15.0 [facility] Comment on above: Performed By: #### 1 9123-9, CBCA, PINR, CMP ####[facility] ([id number])[address] [place] [address] 80190 Hematocrit (Bld) [Volume fraction] 23.0 % Low 39-49 [facility] Comment on above: Performed By: #### 1 9123-9, CBCA, PINR, CMP ####[facility] ([id number])[address] [place] [address] 86082 Hemoglobin (Bld) [Mass/Vol] 7.6 g/dL Low 13.0-17.0 [facility] Comment on above: Performed By: #### 1 9123-9, CBCA, PINR, CMP ####[facility] ([id number])[address] [place] [address] 22023 Lymphocytes (Bld) [#/Vol] 2.1 10*3/uL Normal 1.0-3.5 [facility] Comment on above: Performed By: #### 1 9123-9, CBCA, PINR, CMP ####[facility] ([id number])[address] [place] [address] 06485 Lymphocytes/100 WBC (Bld) 15.7 % Normal [facility] Comment on above: Performed By: #### 1 9123-9, CBCA, PINR, CMP ####[facility] ([id number])[address] [place] [address] 47175 MCH (RBC) [Entitic mass] 26.0 pg Low 27-34 [facility] Comment on above: Performed By: #### 1 9123-9, CBCA, PINR, CMP ####[facility] ([id number])[address] [place] [address] 43938 MCHC (RBC) [Mass/Vol] 33.1 g/dL Normal 32-36 [facility] Comment on above: Performed By: #### 1 9123-9, CBCA, PINR, CMP ####[facility] ([id number])[address] [place] [address] 19801 MCV (RBC) [Entitic vol] 79 fL Low 80-100 [facility] Comment on above: Performed By: #### 1 9123-9, CBCA, PINR, CMP ####[facility] ([id number])[address] [place] [address] 02725 Monocytes (Bld) [#/Vol] 0.6 10*3/uL Normal 0-0.9 [facility] Comment on above: Performed By: #### 1 9123-9, CBCA, PINR, CMP ####[facility] ([id number])[address] [place] [address] 17793 Monocytes/100 WBC (Bld) 4.7 % Normal [facility] Comment on above: Performed By: #### 1 9123-9, CBCA, PINR, CMP ####[facility] ([id number])[address] [place] [address] 41714 Neutrophils/100 WBC (Bld) 77.7 % Normal [facility] Comment on above: Performed By: #### 1 9123-9, CBCA, PINR, CMP ####[facility] ([id number])[address] [place] [address] 37452 Platelet mean volume (Bld) [Entitic vol] 7.3 fL Normal 7-12 [facility] Comment on above: Performed By: #### 1 9123-9, CBCA, PINR, CMP ####[facility] ([id number])[address] [place] [address] 03750 Platelets (Bld) [#/Vol] 197 10*3/uL Normal 150-450 [facility] Comment on above: Performed By: #### 1 9123-9, CBCA, PINR, CMP ####[facility] ([id number])[address] [place] [address] 19868 RBC COUNT 2.93 X10E12/L Low 4.10-5.70 [facility] Comment on above: Performed By: #### 1 9123-9, CBCA, PINR, CMP ####[facility] ([id number])[address] [place] [address] 79979 WBC (Bld) [#/Vol] 13.5 10*3/uL High 4.0-11.0 [facility] Comment on above: Performed By: #### 1 9123-9, CBCA, PINR, CMP ####[facility] ([id number])[address] [place] [address] 08490 COMPREHENSIVE METABOLIC PANE [place] 12-29-2023 Albumin [Mass/Vol] 2.6 g/dL Low 3.2-5.3 [facility] Comment on above: Performed By: #### 1 9123-9, CBCA, PINR, CMP ####[facility] ([id number])[address] [place] [address] [place] [address] ALP [Catalytic activity/Vol] 62 U/L Normal 39-130 [facility] Comment on above: Performed By: #### 1 9123-9, CBCA, PINR, CMP ####[facility] ([id number])[address] [place] [address] 52063 ALT [Catalytic activity/Vol] 24 U/L Normal 0-40 [facility] Comment on above: Performed By: #### 1 9123-9, CBCA, PINR, CMP ####[facility] ([id number])[address] [place] [address] 05687 Anion gap [Moles/Vol] 11 mmol/L Normal 5-15 [facility] Comment on above: Performed By: #### 1 9123-9, CBCA, PINR, CMP ####[facility] ([id number])[address] [place] [address] 64844 AST [Catalytic activity/Vol] 25 U/L Normal 0-41 [facility] Comment on above: Performed By: #### 1 9123-9, CBCA, PINR, CMP ####[facility] ([id number])[address] [place] [address] [place] [address] Bilirubin [Mass/Vol] 0.7 mg/dL Normal 0.3-1.2 [facility] Comment on above: Performed By: #### 1 9123-9, CBCA, PINR, CMP ####[facility] ([id number])[address] [place] [address] [place] [address] Calcium [Mass/Vol] 8.2 mg/dL Low 8.5-10.5 [facility] Comment on above: Performed By: #### 1 9123-9, CBCA, PINR, CMP ####[facility] ([id number])[address] [place] [address] 68151 Chloride [Moles/Vol] 103 mmol/L Normal 98-109 [facility] Comment on above: Performed By: #### 1 9123-9, CBCA, PINR, CMP ####[facility] ([id number])[address] [place] [address] 28540 CO2 [Moles/Vol] 29 mmol/L Normal 22-32 [facility] Comment on above: Performed By: #### 1 9123-9, CBCA, PINR, CMP ####[facility] ([id number])[address] [place] [address] 77325 Creatinine [Mass/Vol] 1.44 mg/dL High 0.70-1.20 [facility] Comment on above: Result Comment: METH OD TRACEABLE TO IDMS STANDARD Performed By: #### 1 9123-9, CBCA, PINR, CMP ####[facility] ([id number])[address] [place] [address] 23630 GFR/1.73 sq M.predicted among non-blacks MDRD (S/P/Bld) [Vol rate/Area] 50 mL/min/{1.73_m2} Low >59 [facility] Comment on above: Result Comment: Repo rted eGFR is based on theCKD-EPI 2020 equation that doesnot use a race coefficient. Performed By: #### 1 9123-9, CBCA, PINR, CMP ####[facility] ([id number])[address] [place] [address] 25801 Glucose [Mass/Vol] 192 mg/dL High 65-99 [facility] Comment on above: Performed By: #### 1 9123-9, CBCA, PINR, CMP ####[facility] ([id number])[address] [place] [address], [place] [address] Potassium [Moles/Vol] 4.5 mmol/L Normal 3.5-5.0 [facility] Comment on above: Performed By: #### 1 9123-9, CBCA, PINR, CMP ####[facility] ([id number])[address] [place] [address], [place] [address] Protein [Mass/Vol] 6.7 g/dL Normal 6.0-8.0 [facility] Comment on above: Performed By: #### 1 9123-9, CBCA, PINR, CMP ####[facility] ([id number])[address] [place] [address] [place] [address] Sodium [Moles/Vol] 143 mmol/L Normal 134-146 [facility] Comment on above: Performed By: #### 1 9123-9, CBCA, PINR, CMP ####[facility] ([id number])[address] [place] [address] [place] [address] Urea nitrogen [Mass/Vol] 41 mg/dL High 5-27 [facility] Comment on above: Performed By: #### 1 9123-9, CBCA, PINR, CMP ####[facility] ([id number])[address] [place] [address], [place] [address] ELECTROLYTESon 12-29-2023 Anion gap [Moles/Vol] 9 mmol/L Normal 5-15 [facility] Comment on above: Performed By: #### E LEC ####[facility] ([id number])[address] [place] [address], [place] [address] Chloride [Moles/Vol] 100 mmol/L Normal 98-109 [facility] Comment on above: Performed By: #### E LEC ####[facility] ([id number])[address] [place] [address] [place] [address] CO2 [Moles/Vol] 30 mmol/L Normal 22-32 [facility] Comment on above: Performed By: #### E LEC ####[facility] ([id number])[address] [place] [address], [place] [address] Potassium [Moles/Vol] 4.2 mmol/L Normal 3.5-5.0 [facility] Comment on above: Performed By: #### E LEC ####[facility] ([id number])[address] [place] [address], [place] [address] Sodium [Moles/Vol] 139 mmol/L Normal 134-146 [facility] Comment on above: Performed By: #### E LEC ####[facility] ([id number])[address] [place] [address], [place] [address] Anion gap [Moles/Vol] 10 mmol/L Normal 5-15 [facility] Comment on above: Performed By: #### E LEC, ####[facility] ([id number])[address] [place] [address], [place] [address] Chloride [Moles/Vol] 100 mmol/L Normal 98-109 [facility] Comment on above: Performed By: #### E LEC, ####[facility] ([id number])[address] [place] [address], [place] [address] CO2 [Moles/Vol] 30 mmol/L Normal 22-32 [facility] Comment on above: Performed By: #### E LEC, ####[facility] ([id number])[address] [place] [address], [place] [address] Potassium [Moles/Vol] 4.4 mmol/L Normal 3.5-5.0 [facility] Comment on above: Performed By: #### E LEC, ####[facility] ([id number])[address] [place] [address], [place] [address] Sodium [Moles/Vol] 140 mmol/L Normal 134-146 [facility] Comment on above: Performed By: #### E LEC, 35795-8 ####[facility] ([id number])[address] [place] [address] 63706 FECAL OCCULT BLOODon 024 Hemoglobin.gastroin testinal Ql (Stl) Positive Abnormal NEG [facility] Comment on above: Performed By: #### 2 335-8 ####[facility] ([id number])[address] [place] [address] 55260 Glucose Glucometer (BldC) [M ass/Vol]on 12-29-2023 Glucose [Mass/Vol] 154 mg/dL High 65-99 [facility] Glucose [Mass/Vol] 192 mg/dL High 65-99 [facility] Glucose [Mass/Vol] 298 mg/dL High 65-99 [facility] HGB AND HCTon 12-29-2023 Hematocrit (Bld) [Volume fraction] 22.9 % Low 39-49 [facility] Comment on above: Performed By: #### H H ####[facility] ([id number])[address] [place] [address] 27031 Hemoglobin (Bld) [Mass/Vol] 7.7 g/dL Low 13.0-17.0 [facility] Comment on above: Performed By: #### H H ####[facility] ([id number])[address] [place] [address] 07176 MAGNESIUMon 12-29-2023 Magnesium [Mass/Vol] 2.0 mg/dL Normal 1.8-2.6 [facility] Comment on above: Performed By: #### E LEC, 33326-8 ####[facility] ([id number])[address] [place] [address] 84777 Magnesium [Mass/Vol] 1.7 mg/dL Low 1.8-2.6 [facility] Comment on above: Performed By: #### 1 9123-9, CBCA, PINR, CMP ####[facility] ([id number])[address] [place] [address] 92868 PROTIME AND INRon 12-29-2023 INR Coag (PPP) [Relative time] 1.6 {INR} High 0.8-1.1 [facility] Comment on above: Performed By: #### 1 9123-9, CBCA, PINR, CMP ####[facility] ([id number])[address] [place] [address] 06193 PT Coag (PPP) [Time] 18.6 s High 9.8-13.2 [facility] Comment on above: Result Comment: NEW REFERENCE RANGE Performed By: #### 1 9123-9, CBCA, PINR, CMP ####[facility] ([id number])[address] [place] [address] 96539 XR CHEST 2 VWSon 12-29-2023 XR CHEST 2 VWS Normal [facility] CBC AND AUTO DIFFon 12-28-19 24 ABSOLUTE BASOPHIL 0.0 X10E9/L Normal 0.0-0.2 [facility] Comment on above: Performed By: #### 1 9123-9, CBCA, PINR, CMP ####[facility] ([id number])[address] [place] [address] 94931 ABSOLUTE NEUTROPHIL 9.4 X10E9/L High 1.5-6.6 [facility] Comment on above: Performed By: #### 1 9123-9, CBCA, PINR, CMP ####[facility] ([id number])[address] [place] [address] 14965 Basophils/100 WBC (Bld) 0.1 % Normal [facility] Comment on above: Performed By: #### 1 9123-9, CBCA, PINR, CMP ####[facility] ([id number])[address] [place] [address] 22782 Eosinophils (Bld) [#/Vol] 0.1 10*3/uL Normal 0.0-0.4 [facility] Comment on above: Performed By: #### 1 9123-9, CBCA, PINR, CMP ####[facility] ([id number])[address] [place] [address] 94334 Eosinophils/100 WBC (Bld) 0.9 % Normal [facility] Comment on above: Performed By: #### 1 9123-9, CBCA, PINR, CMP ####[facility] ([id number])[address] [place] [address] 03132 Erythrocyte distribution width (RBC) [Ratio] 15.8 % High 11.5-15.0 [facility] Comment on above: Performed By: #### 1 9123-9, CBCA, PINR, CMP ####[facility] ([id number])[address] [place] [address] 05907 Hematocrit (Bld) [Volume fraction] 22.2 % Low 39-49 [facility] Comment on above: Performed By: #### 1 9123-9, CBCA, PINR, CMP ####[facility] ([id number])[address] [place] [address] 64432 Hemoglobin (Bld) [Mass/Vol] 7.4 g/dL Low 13.0-17.0 [facility] Comment on above: Performed By: #### 1 9123-9, CBCA, PINR, CMP ####[facility] ([id number])[address] [place] [address] 54266 Lymphocytes (Bld) [#/Vol] 1.6 10*3/uL Normal 1.0-3.5 [facility] Comment on above: Performed By: #### 1 9123-9, CBCA, PINR, CMP ####[facility] ([id number])[address] [place] [address] 54247 Lymphocytes/100 WBC (Bld) 13.6 % Normal [facility] Comment on above: Performed By: #### 1 9123-9, CBCA, PINR, CMP ####[facility] ([id number])[address] [place] [address] 79653 MCH (RBC) [Entitic mass] 26.0 pg Low 27-34 [facility] Comment on above: Performed By: #### 1 9123-9, CBCA, PINR, CMP ####[facility] ([id number])[address] [place] [address] 97049 MCHC (RBC) [Mass/Vol] 33.4 g/dL Normal 32-36 [facility] Comment on above: Performed By: #### 1 9123-9, CBCA, PINR, CMP ####[facility] ([id number])[address] [place] [address] 30167 MCV (RBC) [Entitic vol] 78 fL Low 80-100 [facility] Comment on above: Performed By: #### 1 9123-9, CBCA, PINR, CMP ####[facility] ([id number])[address] [place] [address] 30289 Monocytes (Bld) [#/Vol] 0.7 10*3/uL Normal 0-0.9 [facility] Comment on above: Performed By: #### 1 9123-9, CBCA, PINR, CMP ####[facility] ([id number])[address] [place] [address] 27305 Monocytes/100 WBC (Bld) 5.7 % Normal [facility] Comment on above: Performed By: #### 1 9123-9, CBCA, PINR, CMP ####[facility] ([id number])[address] [place] [address] 05110 Neutrophils/100 WBC (Bld) 79.7 % Normal [facility] Comment on above: Performed By: #### 1 9123-9, CBCA, PINR, CMP ####[facility] ([id number])[address] [place] [address] 86910 Platelet mean volume (Bld) [Entitic vol] 7.0 fL Normal 7-12 [facility] Comment on above: Performed By: #### 1 9123-9, CBCA, PINR, CMP ####[facility] ([id number])[address] [place] [address] 29394 Platelets (Bld) [#/Vol] 217 10*3/uL Normal 150-450 [facility] Comment on above: Performed By: #### 1 9123-9, CBCA, PINR, CMP ####[facility] ([id number])[address] [place] [address] 66279 RBC COUNT 2.84 X10E12/L Low 4.10-5.70 [facility] Comment on above: Performed By: #### 1 9123-9, CBCA, PINR, CMP ####[facility] ([id number])[address] [place] [address] 41261 WBC (Bld) [#/Vol] 11.7 10*3/uL High 4.0-11.0 [facility] Comment on above: Performed By: #### 1 9123-9, CBCA, PINR, CMP ####[facility] ([id number])[address] [place] [address] 71886 COMPREHENSIVE METABOLIC PANE [place] 12-28-2023 Albumin [Mass/Vol] 2.7 g/dL Low 3.2-5.3 [facility] Comment on above: Performed By: #### 1 9123-9, CBCA, PINR, CMP ####[facility] ([id number])[address] [place] [address] 28682 ALP [Catalytic activity/Vol] 65 U/L Normal 39-130 [facility] Comment on above: Performed By: #### 1 9123-9, CBCA, PINR, CMP ####[facility] ([id number])[address] [place] [address] 86533 ALT [Catalytic activity/Vol] 23 U/L Normal 0-40 [facility] Comment on above: Performed By: #### 1 9123-9, CBCA, PINR, CMP ####[facility] ([id number])[address] [place] [address] 70372 Anion gap [Moles/Vol] 12 mmol/L Normal 5-15 [facility] Comment on above: Performed By: #### 1 9123-9, CBCA, PINR, CMP ####[facility] ([id number])[address] [place] [address] 72245 AST [Catalytic activity/Vol] 21 U/L Normal 0-41 [facility] Comment on above: Performed By: #### 1 9123-9, CBCA, PINR, CMP ####[facility] ([id number])[address] [place] [address] 88719 Bilirubin [Mass/Vol] 0.6 mg/dL Normal 0.3-1.2 [facility] Comment on above: Performed By: #### 1 9123-9, CBCA, PINR, CMP ####[facility] ([id number])[address] [place] [address] 92475 Calcium [Mass/Vol] 8.7 mg/dL Normal 8.5-10.5 [facility] Comment on above: Performed By: #### 1 9123-9, CBCA, PINR, CMP ####[facility] ([id number])[address] [place] [address] 46407 Chloride [Moles/Vol] 105 mmol/L Normal 98-109 [facility] Comment on above: Performed By: #### 1 9123-9, CBCA, PINR, CMP ####[facility] ([id number])[address] [place] [address] 62737 CO2 [Moles/Vol] 31 mmol/L Normal 22-32 [facility] Comment on above: Performed By: #### 1 9123-9, CBCA, PINR, CMP ####[facility] ([id number])[address] [place] [address] 38023 Creatinine [Mass/Vol] 1.58 mg/dL High 0.70-1.20 [facility] Comment on above: Result Comment: METH OD TRACEABLE TO IDMS STANDARD Performed By: #### 1 9123-9, CBCA, PINR, CMP ####[facility] ([id number])[address] [place] [address] 98290 GFR/1.73 sq M.predicted among non-blacks MDRD (S/P/Bld) [Vol rate/Area] 44 mL/min/{1.73_m2} Low >59 [facility] Comment on above: Result Comment: Repo rted eGFR is based on theCKD-EPI 2020 equation that doesnot use a race coefficient. Performed By: #### 1 9123-9, CBCA, PINR, CMP ####[facility] ([id number])[address] [place] [address] 55074 Glucose [Mass/Vol] 181 mg/dL High 65-99 [facility] Comment on above: Performed By: #### 1 9123-9, CBCA, PINR, CMP ####[facility] ([id number])[address] [place] [address] 13294 Potassium [Moles/Vol] 3.9 mmol/L Normal 3.5-5.0 [facility] Comment on above: Performed By: #### 1 9123-9, CBCA, PINR, CMP ####[facility] ([id number])[address] [place] [address] 93311 Protein [Mass/Vol] 7.0 g/dL Normal 6.0-8.0 [facility] Comment on above: Performed By: #### 1 9123-9, CBCA, PINR, CMP ####[facility] ([id number])[address] [place] [address] 64049 Sodium [Moles/Vol] 148 mmol/L High 134-146 [facility] Comment on above: Performed By: #### 1 9123-9, CBCA, PINR, CMP ####[facility] ([id number])[address] [place] [address] 48912 Urea nitrogen [Mass/Vol] 48 mg/dL High 5-27 [facility] Comment on above: Performed By: #### 1 9123-9, CBCA, PINR, CMP ####[facility] ([id number])[address] [place] [address], [place] [address] ELECTROLYTESon - Anion gap [Moles/Vol] 9 mmol/L Normal 5-15 [facility] Comment on above: Performed By: #### E LEC ####[facility] ([id number])[address] [place] [address] 75907 Chloride [Moles/Vol] 104 mmol/L Normal 98-109 [facility] Comment on above: Performed By: #### E LEC ####[facility] ([id number])[address] [place] [address] 04979 CO2 [Moles/Vol] 30 mmol/L Normal 22-32 [facility] Comment on above: Performed By: #### E LEC ####[facility] ([id number])[address] [place] [address] 84004 Potassium [Moles/Vol] 4.3 mmol/L Normal 3.5-5.0 [facility] Comment on above: Performed By: #### E LEC ####[facility] ([id number])[address] [place] [address] 67820 Sodium [Moles/Vol] 143 mmol/L Normal 134-146 [facility] Comment on above: Performed By: #### E LEC ####[facility] ([id number])[address] [place] [address] 47462 Glucose Glucometer (BldC) [M ass/Vol]on 12-28-2023 Glucose [Mass/Vol] 211 mg/dL High 65-99 [facility] Glucose [Mass/Vol] 171 mg/dL High 65-99 [facility] Glucose [Mass/Vol] 381 mg/dL High 65-99 [facility] HGB A1C (GLYCO-HGB)on 2023 Glucose [Mass/Vol] 183 mg/dL Normal [facility] Comment on above: Performed By: #### H A1C ####[facility] ([id number])[address] [place] [address], [address] [place] [address] 37936#### HH ####[facility] ([id number])[address] [place] [address] 99369 HbA1c (Bld) [Mass fraction] 8.0 % High 4.4-5.6 [facility] Comment on above: Result Comment: NOTE ADA Guidelines Result HgbA1c Normal : less than 5.7 % Prediabetes : 5.7 % to 6.4 % Diabetes : > 6.4 %Use with caution in patients with abnormal hemoglobin variants asthe half-life of red blood cells and in vivo glycation rates areaffected. Performed By: #### H A1C ####[facility] ([id number])2130 [facility], [address] [place] [address] 52001#### HH ####[facility] ([id number])[address] [place] [address] 40531 HGB AND HCTon 12-28-2023 Hematocrit (Bld) [Volume fraction] 21.7 % Low 39-49 [facility] Comment on above: Performed By: #### H H ####[facility] ([id number])[address] [place] [address] 12042 Hemoglobin (Bld) [Mass/Vol] 7.3 g/dL Low 13.0-17.0 [facility] Comment on above: Performed By: #### H H ####[facility] ([id number])[address] [place] [address] 48969 Hematocrit (Bld) [Volume fraction] 20.7 % Low 39-49 [facility] Comment on above: Performed By: #### H A1C ####[facility] ([id number])[address] [address]#### HH ####[facility] ([id number])[address] [place] [address] 66870 Hemoglobin (Bld) [Mass/Vol] 7.0 g/dL Low 13.0-17.0 [facility] Comment on above: Performed By: #### H A1C ####[facility] ([id number])2130 [facility], [address] [place] [address]#### HH ####[facility] ([id number])[address] [place] [address] 41191 MAGNESIUMon 12-28-2023 Magnesium [Mass/Vol] 2.0 mg/dL Normal 1.8-2.6 [facility] Comment on above: Performed By: #### 1 9123-9, CBCA, PINR, CMP ####[facility] ([id number])[address] [place] [address] 99114 PROTIME AND INRon 12-28-2023 INR Coag (PPP) [Relative time] 2.4 {INR} High 0.8-1.1 [facility] Comment on above: Performed By: #### 1 9123-9, CBCA, PINR, CMP ####[facility] ([id number])[address] [place] [address] 81515 PT Coag (PPP) [Time] 27.4 s High 9.8-13.2 [facility] Comment on above: Result Comment: NEW REFERENCE RANGE Performed By: #### 1 9123-9, CBCA, PINR, CMP ####[facility] ([id number])[address] [place] [address] 54980 CBC AND AUTO DIFFon 12-27-19 24 ABSOLUTE BASOPHIL 0.0 X10E9/L Normal 0.0-0.2 [facility] Comment on above: Performed By: #### 1 9123-9, CMP, CBCA, PINR ####[facility] ([id number])[address] [place] [address] 08986 ABSOLUTE NEUTROPHIL 11.0 X10E9/L High 1.5-6.6 [facility] Comment on above: Performed By: #### 1 9123-9, CMP, CBCA, PINR ####[facility] ([id number])[address] [place] [address] 78752 Basophils/100 WBC (Bld) 0.0 % Normal [facility] Comment on above: Performed By: #### 1 9123-9, CMP, CBCA, PINR ####[facility] ([id number])[address] [place] [address] 24203 Eosinophils (Bld) [#/Vol] 0.0 10*3/uL Normal 0.0-0.4 [facility] Comment on above: Performed By: #### 1 9123-9, CMP, CBCA, PINR ####[facility] ([id number])[address] [place] [address] 07553 Eosinophils/100 WBC (Bld) 0.1 % Normal [facility] Comment on above: Performed By: #### 1 9123-9, CMP, CBCA, PINR ####[facility] ([id number])[address] [place] [address] 33292 Erythrocyte distribution width (RBC) [Ratio] 15.4 % High 11.5-15.0 [facility] Comment on above: Performed By: #### 1 9123-9, CMP, CBCA, PINR ####[facility] ([id number])[address] [place] [address] 42267 Hematocrit (Bld) [Volume fraction] 22.4 % Low 39-49 [facility] Comment on above: Performed By: #### 1 9123-9, CMP, CBCA, PINR ####[facility] ([id number])[address] [place] [address] 52712 Hemoglobin (Bld) [Mass/Vol] 7.6 g/dL Low 13.0-17.0 [facility] Comment on above: Performed By: #### 1 9123-9, CMP, CBCA, PINR ####[facility] ([id number])[address] [place] [address] 33632 Lymphocytes (Bld) [#/Vol] 1.0 10*3/uL Normal 1.0-3.5 [facility] Comment on above: Performed By: #### 1 9123-9, CMP, CBCA, PINR ####[facility] ([id number])[address] [place] [address] 66114 Lymphocytes/100 WBC (Bld) 7.7 % Normal [facility] Comment on above: Performed By: #### 1 9123-9, CMP, CBCA, PINR ####[facility] ([id number])[address] [place] [address] 57918 MCH (RBC) [Entitic mass] 26.3 pg Low 27-34 [facility] Comment on above: Performed By: #### 1 9122-9, CMP, CBCA, PINR ####[facility] ([id number])[address] [place] [address] 06711 MCHC (RBC) [Mass/Vol] 34.0 g/dL Normal 32-36 [facility] Comment on above: Performed By: #### 1 9122-9, CMP, CBCA, PINR ####[facility] ([id number])[address] [place] [address] 03274 MCV (RBC) [Entitic vol] 77 fL Low 80-100 [facility] Comment on above: Performed By: #### 1 9123-9, CMP, CBCA, PINR ####[facility] ([id number])[address] [place] [address] 52614 Monocytes (Bld) [#/Vol] 0.7 10*3/uL Normal 0-0.9 [facility] Comment on above: Performed By: #### 1 9123-9, CMP, CBCA, PINR ####[facility] ([id number])[address] [place] [address] 08898 Monocytes/100 WBC (Bld) 5.6 % Normal [facility] Comment on above: Performed By: #### 1 9123-9, CMP, CBCA, PINR ####[facility] ([id number])[address] [place] [address] 68394 Neutrophils/100 WBC (Bld) 86.6 % Normal [facility] Comment on above: Performed By: #### 1 9123-9, CMP, CBCA, PINR ####[facility] ([id number])[address] [place] [address] 04193 Platelet mean volume (Bld) [Entitic vol] 6.7 fL Low 7-12 [facility] Comment on above: Performed By: #### 1 9123-9, CMP, CBCA, PINR ####[facility] ([id number])[address] [place] [address] 01919 Platelets (Bld) [#/Vol] 224 10*3/uL Normal 150-450 [facility] Comment on above: Performed By: #### 1 9123-9, CMP, CBCA, PINR ####[facility] ([id number])[address] [place] [address] 94685 RBC COUNT 2.89 X10E12/L Low 4.10-5.70 [facility] Comment on above: Performed By: #### 1 9123-9, CMP, CBCA, PINR ####[facility] ([id number])[address] [place] [address] 75710 WBC (Bld) [#/Vol] 12.7 10*3/uL High 4.0-11.0 [facility] Comment on above: Performed By: #### 1 9123-9, CMP, CBCA, PINR ####[facility] ([id number])[address] [place] [address] 89441 COMPREHENSIVE METABOLIC PANE [place] 12-27-2023 Albumin [Mass/Vol] 2.1 g/dL Low 3.2-5.3 [facility] Comment on above: Performed By: #### 1 9123-9, CMP, CBCA, PINR ####[facility] ([id number])[address], [place] [address] ALP [Catalytic activity/Vol] 74 U/L Normal 39-130 [facility] Comment on above: Performed By: #### 1 9123-9, CMP, CBCA, PINR ####[facility] ([id number])[address] [place] [address] [place] [address] ALT [Catalytic activity/Vol] 24 U/L Normal 0-40 [facility] Comment on above: Performed By: #### 1 9123-9, CMP, CBCA, PINR ####[facility] ([id number])[address] [place] [address] 30935 Anion gap [Moles/Vol] 7 mmol/L Normal 5-15 [facility] Comment on above: Performed By: #### 1 9123-9, CMP, CBCA, PINR ####[facility] ([id number])[address] [place] [address] [place] [address] AST [Catalytic activity/Vol] 19 U/L Normal 0-41 [facility] Comment on above: Performed By: #### 1 9123-9, CMP, CBCA, PINR ####[facility] ([id number])[address] [place] [address] [place] [address] Bilirubin [Mass/Vol] 0.5 mg/dL Normal 0.3-1.2 [facility] Comment on above: Performed By: #### 1 9123-9, CMP, CBCA, PINR ####[facility] ([id number])[address] [place] [address] [place] [address] Calcium [Mass/Vol] 8.2 mg/dL Low 8.5-10.5 [facility] Comment on above: Performed By: #### 1 9123-9, CMP, CBCA, PINR ####[facility] ([id number])[address] [place] [address] [place] [address] Chloride [Moles/Vol] 100 mmol/L Normal 98-109 [facility] Comment on above: Performed By: #### 1 9123-9, CMP, CBCA, PINR ####[facility] ([id number])[address] [place] [address] 98701 CO2 [Moles/Vol] 33 mmol/L High 22-32 [facility] Comment on above: Performed By: #### 1 9123-9, CMP, CBCA, PINR ####[facility] ([id number])[address] [place] [address] 54262 Creatinine [Mass/Vol] 1.67 mg/dL High 0.70-1.20 [facility] Comment on above: Result Comment: METH OD TRACEABLE TO IDMS STANDARD Performed By: #### 1 9123-9, RONA, CBCA, PINR ####[facility] ([id number])[address] [place] [address] 81446 GFR/1.73 sq M.predicted among non-blacks MDRD (S/P/Bld) [Vol rate/Area] 42 mL/min/{1.73_m2} Low >59 [facility] Comment on above: Result Comment: Repo rted eGFR is based on theCKD-EPI 2020 equation that doesnot use a race coefficient. Performed By: #### 1 9123-9, CMP, CBCA, PINR ####[facility] ([id number])[address] [place] [address] 99937 Glucose [Mass/Vol] 217 mg/dL High 65-99 [facility] Comment on above: Performed By: #### 1 9123-9, CMP, CBCA, PINR ####[facility] ([id number])[address] [place] [address] 34173 Potassium [Moles/Vol] 3.1 mmol/L Low 3.5-5.0 [facility] Comment on above: Performed By: #### 1 9123-9, CMP, CBCA, PINR ####[facility] ([id number])[address] [place] [address], [place] [address] Protein [Mass/Vol] 7.0 g/dL Normal 6.0-8.0 [facility] Comment on above: Performed By: #### 1 9123-9, CMP, CBCA, PINR ####[facility] ([id number])[address] [place] [address], [place] [address] Sodium [Moles/Vol] 140 mmol/L Normal 134-146 [facility] Comment on above: Performed By: #### 1 9123-9, CMP, CBCA, PINR ####[facility] ([id number])[address] [place] [address] [place] [address] Urea nitrogen [Mass/Vol] 55 mg/dL High 5-27 [facility] Comment on above: Performed By: #### 1 9123-9, CMP, CBCA, PINR ####[facility] ([id number])[address] [place] [address], [place] [address] ELECTROLYTESon - Anion gap [Moles/Vol] 8 mmol/L Normal 5-15 [facility] Comment on above: Performed By: #### H H, ELEC ####[facility] ([id number])[address] [place] [address], [place] [address] Chloride [Moles/Vol] 106 mmol/L Normal 98-109 [facility] Comment on above: Performed By: #### H H, ELEC ####[facility] ([id number])[address] [place] [address], [place] [address] CO2 [Moles/Vol] 30 mmol/L Normal 22-32 [facility] Comment on above: Performed By: #### H H, ELEC ####[facility] ([id number])[address] [place] [address], [place] [address] Potassium [Moles/Vol] 3.8 mmol/L Normal 3.5-5.0 [facility] Comment on above: Performed By: #### H H, ELEC ####[facility] ([id number])[address] [place] [address], [place] [address] Sodium [Moles/Vol] 144 mmol/L Normal 134-146 [facility] Comment on above: Performed By: #### H H, ELEC ####[facility] ([id number])[address] [place] [address], [place] [address] Anion gap [Moles/Vol] 5 mmol/L Normal 5-15 [facility] Comment on above: Performed By: #### H H, ELEC ####[facility] ([id number])[address] [place] [address] [place] [address] Chloride [Moles/Vol] 105 mmol/L Normal 98-109 [facility] Comment on above: Performed By: #### H H, ELEC ####[facility] ([id number])[address] [place] [address], [place] [address] CO2 [Moles/Vol] 31 mmol/L Normal 22-32 [facility] Comment on above: Performed By: #### H H, ELEC ####[facility] ([id number])[address] [place] [address], [place] [address] Potassium [Moles/Vol] 3.3 mmol/L Low 3.5-5.0 [facility] Comment on above: Performed By: #### H H, ELEC ####[facility] ([id number])[address] [place] [address], [place] [address] Sodium [Moles/Vol] 141 mmol/L Normal 134-146 [facility] Comment on above: Performed By: #### H H, ELEC ####[facility] ([id number])[address] [place] [address], [place] [address] Glucose Glucometer (BldC) [M ass/Vol]on 12-27-2023 Glucose [Mass/Vol] 312 mg/dL High 65-99 [facility] Glucose [Mass/Vol] 180 mg/dL High 65-99 [facility] Glucose [Mass/Vol] 329 mg/dL High 65-99 [facility] HGB AND HCTon 12-27-2023 Hematocrit (Bld) [Volume fraction] 22.8 % Low 39-49 [facility] Comment on above: Performed By: #### H H, ELEC ####[facility] ([id number])[address] [place] [address] 52673 Hemoglobin (Bld) [Mass/Vol] 7.7 g/dL Low 13.0-17.0 [facility] Comment on above: Performed By: #### H H, ELEC ####[facility] ([id number])[address] [place] [address] 07203 Hematocrit (Bld) [Volume fraction] 21.7 % Low 39-49 [facility] Comment on above: Performed By: #### H H, ELEC ####[facility] ([id number])[address] [place] [address] 71444 Hemoglobin (Bld) [Mass/Vol] 7.2 g/dL Low 13.0-17.0 [facility] Comment on above: Performed By: #### H H, ELEC ####[facility] ([id number])[address] [place] [address] 79032 MAGNESIUMon 12-27-2023 Magnesium [Mass/Vol] 2.4 mg/dL Normal 1.8-2.6 [facility] Comment on above: Performed By: #### 1 9123-9, 2823-3 ####[facility] ([id number])[address] [place] [address] 24341 Magnesium [Mass/Vol] 1.4 mg/dL Low 1.8-2.6 [facility] Comment on above: Performed By: #### 1 9123-9, CMP, CBCA, PINR ####[facility] ([id number])[address] [place] [address] 47859 POTASSIUMon 12-27-2023 Potassium [Moles/Vol] 3.3 mmol/L Low 3.5-5.0 [facility] Comment on above: Performed By: #### 1 9123-9, 2823-3 ####[facility] ([id number])[address] [place] [address] 45035 Potassium [Moles/Vol] 3.1 mmol/L Low 3.5-5.0 [facility] Comment on above: Performed By: #### 2 823-3 ####[facility] ([id number])[address] [place] [address] 12298 PROTIME AND INRon 12-27-2023 INR Coag (PPP) [Relative time] 6.8 {INR} Critically high 0.8-1.1 [facility] Comment on above: Performed By: #### 1 9123-9, CMP, CBCA, PINR ####[facility] ([id number])[address] [place] [address] 27285 PT Coag (PPP) [Time] 73.5 s High 9.8-13.2 [facility] Comment on above: Result Comment: NEW REFERENCE RANGE Performed By: #### 1 9123-9, CMP, CBCA, PINR ####[facility] ([id number])[address] [place] [address] 21144 ACUTE HEPATITIS PANELon ANTI HCV W/PCR REFLX Non-Reactive Normal NRCT [facility] Comment on above: Result Comment: If r ecent infection suspected, recommendrepeat testing (>2 months).Ivtgwd-ow-nabzhs ratio is <0.80. Performed By: #### A HP, 5130-0, 25019-9, SPE, 72352-2, C34, FLCH ####[facility] ([id number])[address], [address] [place] [address]#### 42553-9, 45352-8, 47705-6 ####[facility] ([id number])[address] [place] [address] 40495 HEPATITIS A IGM Non-Reactive Normal NRCT [facility] Comment on above: Performed By: #### A HP, 5130-0, 67180-1, SPE, 66276-6, C34, FLCH ####[facility] ([id number])[address] [address]#### 58170-0, 65085-2, 87890-5 ####[facility] ([id number])[address] [place] [address] 44436 HEPATITIS B CORE IGM Negative Normal NEG [facility] Comment on above: Performed By: #### A HP, 5130-0, 37011-2, SPE, 12773-0, C34, FLCH ####[facility] ([id number])[address] [address]#### 62122-0, 71059-3, 21615-0 ####[facility] ([id number])[address] [place] [address] 31544 HEPATITIS B SURF AG Negative Normal NEG [facility] Comment on above: Performed By: #### A HP, 5130-0, 63652-5, SPE, 33451-2, C34, FLCH ####[facility] ([id number])[address] [address]#### 91898-9, 27518-1, 87997-7 ####[facility] ([id number])[address] [place] [address] BLOOD CULTUREon 12-26-2023 Bacteria identified Aer cx Nom (Bld) CULTURE RESULTS NO GROWTH 5 DAYS Normal [facility] Bacteria identified Aer cx Nom (Bld) Susceptible [facility] Comment on above: Performed By: #### 1 7928-3 ####[facility] ([id number])[address] [facility], [address] [place] [address] 33535 Basement membrane IgG Qn (S) on 12-26-2023 Glomerular Base Memb IgG <0.2 Normal <1.0 (Negative) [facility] Comment on above: Result Comment: NOTE Test Performed by:[facility] [place] [address]Goj Director: Julio C Ortega Ph.D.; CLIA# [id number] Performed By: #### A HP, 5130-0, 96095-8, SPE, 19822-7, C34, FLCH ####[facility] ([id number])[address] [facility], [address] [place] [address]85#### 63645-8, 47013-6, 56001-1 ####[facility] ([id number])[address] [place] [address] 19833 CBC AND AUTO DIFFon 12-26-19 24 ABSOLUTE BASOPHIL 0.0 X10E9/L Normal 0.0-0.2 [facility] Comment on above: Performed By: #### P INR, CBCA, CMP, 50048-5, 59690-0 ####[facility] ([id number])[address] [place] [address] 35961 ABSOLUTE NEUTROPHIL 11.5 X10E9/L High 1.5-6.6 [facility] Comment on above: Performed By: #### P INR, CBCA, CMP, 49771-7, 48866-2 ####[facility] ([id number])[address] [place] [address] 04004 Basophils/100 WBC (Bld) 0.1 % Normal [facility] Comment on above: Performed By: #### P INR, CBCA, CMP, 83985-9, 36619-7 ####[facility] ([id number])[address] [place] [address] 26579 Eosinophils (Bld) [#/Vol] 0.0 10*3/uL Normal 0.0-0.4 [facility] Comment on above: Performed By: #### P INR, CBCA, CMP, 55838-6, 57012-2 ####[facility] ([id number])[address] [place] [address] 81562 Eosinophils/100 WBC (Bld) 0.1 % Normal [facility] Comment on above: Performed By: #### P INR, CBCA, CMP, 93671-8, 80694-5 ####[facility] ([id number])[address] [place] [address] 84284 Erythrocyte distribution width (RBC) [Ratio] 15.7 % High 11.5-15.0 [facility] Comment on above: Performed By: #### P INR, CBCA, CMP, 23002-5, 38119-9 ####[facility] ([id number])[address] [place] [address] 70634 Hematocrit (Bld) [Volume fraction] 23.6 % Low 39-49 [facility] Comment on above: Performed By: #### P INR, CBCA, CMP, 28152-7, 56938-2 ####[facility] ([id number])[address] [place] [address] 42926 Hemoglobin (Bld) [Mass/Vol] 8.2 g/dL Low 13.0-17.0 [facility] Comment on above: Performed By: #### P INR, CBCA, CMP, 96225-1, 71656-6 ####[facility] ([id number])[address] [place] [address] 50218 Lymphocytes (Bld) [#/Vol] 0.8 10*3/uL Low 1.0-3.5 [facility] Comment on above: Performed By: #### P INR, CBCA, CMP, 82244-9, 60626-4 ####[facility] ([id number])[address] [place] [address] 14994 Lymphocytes/100 WBC (Bld) 6.4 % Normal [facility] Comment on above: Performed By: #### P INR, CBCA, CMP, 68286-9, 66500-8 ####[facility] ([id number])[address] [place] [address] 61177 MCH (RBC) [Entitic mass] 26.3 pg Low 27-34 [facility] Comment on above: Performed By: #### P INR, CBCA, CMP, 63447-5, 09964-2 ####[facility] ([id number])[address] [place] [address] 13735 MCHC (RBC) [Mass/Vol] 34.7 g/dL Normal 32-36 [facility] Comment on above: Performed By: #### P INR, CBCA, CMP, 40308-9, 15354-5 ####[facility] ([id number])[address] [place] [address] 40755 MCV (RBC) [Entitic vol] 76 fL Low 80-100 [facility] Comment on above: Performed By: #### P INR, CBCA, CMP, 64322-9, 24777-5 ####[facility] ([id number])[address] [place] [address] 50047 Monocytes (Bld) [#/Vol] 0.7 10*3/uL Normal 0-0.9 [facility] Comment on above: Performed By: #### P INR, CBCA, CMP, 39669-1, 08601-0 ####[facility] ([id number])[address] [place] [address] 68577 Monocytes/100 WBC (Bld) 5.1 % Normal [facility] Comment on above: Performed By: #### P INR, CBCA, CMP, 81892-5, 45942-7 ####[facility] ([id number])[address] [place] [address] 45369 Neutrophils/100 WBC (Bld) 88.3 % Normal [facility] Comment on above: Performed By: #### P INR, CBCA, CMP, 71797-2, 20637-0 ####[facility] ([id number])[address] [place] [address] 42713 Platelet mean volume (Bld) [Entitic vol] 7.0 fL Normal 7-12 [facility] Comment on above: Performed By: #### P INR, CBCA, CMP, 01812-2, 66158-3 ####[facility] ([id number])[address] [place] [address] 02546 Platelets (Bld) [#/Vol] 197 10*3/uL Normal 150-450 [facility] Comment on above: Performed By: #### P INR, CBCA, CMP, 63253-3, 74048-2 ####[facility] ([id number])[address] [place] [address] 92776 RBC COUNT 3.11 X10E12/L Low 4.10-5.70 [facility] Comment on above: Performed By: #### P INR, CBCA, CMP, 11223-8, 33316-6 ####[facility] ([id number])[address] [place] [address] 82351 WBC (Bld) [#/Vol] 13.0 10*3/uL High 4.0-11.0 [facility] Comment on above: Performed By: #### P INR, CBCA, CMP, 82255-3, 87735-6 ####[facility] ([id number])[address] [place] [address] 12161 CK [Catalytic activity/Vol]o n 12-26-2023 CPK 14 U/L Low 24-195 [facility] Comment on above: Performed By: #### 2 157-6, THYR, 05374-6, 3084-1 ####[facility] ([id number])[address] [place] [address] 08001 COMPLEMENT PROFILEon 024 COMPLEMENT C3 146 mg/dL Normal 86-184 [facility] Comment on above: Performed By: #### A HP, 5130-0, 12034-8, SPE, 67844-0, C34, FLCH ####[facility] ([id number])[address] [facility], [address] [place] [address]#### 62063-2, 54206-8, 97758-4 ####[facility] ([id number])[address] [place] [address] 92695 COMPLEMENT C4 36 mg/dL Normal 16-47 [facility] Comment on above: Performed By: #### A HP, 5130-0, 07834-5, SPE, 96166-4, C34, FLCH ####[facility] ([id number])[address] [facility], [address] [place] [address]#### 98111-2, 21633-1, 16657-0 ####[facility] ([id number])[address] [place] [address] 48142 COMPREHENSIVE METABOLIC PANE [place] 12-26-2023 Albumin [Mass/Vol] 1.9 g/dL Low 3.2-5.3 [facility] Comment on above: Performed By: #### P INR, CBCA, CMP, 66017-3, 31716-9 ####[facility] ([id number])[address] [place] [address] 13452 ALP [Catalytic activity/Vol] 80 U/L Normal 39-130 [facility] Comment on above: Performed By: #### P INR, CBCA, CMP, 86046-0, 36281-1 ####[facility] ([id number])[address] [place] [address] 00121 ALT [Catalytic activity/Vol] 26 U/L Normal 0-40 [facility] Comment on above: Performed By: #### P INR, CBCA, CMP, 05293-2, 68038-9 ####[facility] ([id number])[address] [place] [address] 16440 Anion gap [Moles/Vol] 9 mmol/L Normal 5-15 [facility] Comment on above: Performed By: #### P INR, CBCA, CMP, 72772-5, 21906-9 ####[facility] ([id number])[address] [place] [address] 02514 AST [Catalytic activity/Vol] 22 U/L Normal 0-41 [facility] Comment on above: Performed By: #### P INR, CBCA, CMP, 48697-5, 88466-7 ####[facility] ([id number])[address] [place] [address] 28140 Bilirubin [Mass/Vol] 0.4 mg/dL Normal 0.3-1.2 [facility] Comment on above: Performed By: #### P INR, CBCA, CMP, 71615-7, 12710-5 ####[facility] ([id number])[address] [place] [address] 47796 Calcium [Mass/Vol] 7.8 mg/dL Low 8.5-10.5 [facility] Comment on above: Performed By: #### P INR, CBCA, CMP, 87155-4, 99032-5 ####[facility] ([id number])[address] [place] [address] 93744 Chloride [Moles/Vol] 96 mmol/L Low 98-109 [facility] Comment on above: Performed By: #### P INR, CBCA, CMP, 45637-6, 89814-9 ####[facility] ([id number])[address] [place] [address] 91366 CO2 [Moles/Vol] 28 mmol/L Normal 22-32 [facility] Comment on above: Performed By: #### P INR, CBCA, CMP, 33395-2, 39051-2 ####[facility] ([id number])[address] [place] [address] 97650 Creatinine [Mass/Vol] 1.89 mg/dL High 0.70-1.20 [facility] Comment on above: Result Comment: METH OD TRACEABLE TO IDMS STANDARD Performed By: #### P INR, CBCA, CMP, 62196-4, 34838-2 ####[facility] ([id number])[address] [place] [address] 40192 GFR/1.73 sq M.predicted among non-blacks MDRD (S/P/Bld) [Vol rate/Area] 36 mL/min/{1.73_m2} Low >59 [facility] Comment on above: Result Comment: Repo rted eGFR is based on theCKD-EPI 2020 equation that doesnot use a race coefficient. Performed By: #### P INR, CBCA, CMP, 60140-8, 67989-1 ####[facility] ([id number])[address] [place] [address] 52124 Glucose [Mass/Vol] 265 mg/dL High 65-99 [facility] Comment on above: Performed By: #### P INR, CBCA, CMP, 79417-9, 56361-3 ####[facility] ([id number])[address] [place] [address] 52653 Potassium [Moles/Vol] 3.1 mmol/L Low 3.5-5.0 [facility] Comment on above: Performed By: #### P INR, CBCA, CMP, 93498-0, 29692-5 ####[facility] ([id number])[address] [place] [address] 78395 Protein [Mass/Vol] 6.8 g/dL Normal 6.0-8.0 [facility] Comment on above: Performed By: #### P INR, CBCA, CMP, 07602-5, 95425-2 ####[facility] ([id number])[address] [place] [address] 31434 Sodium [Moles/Vol] 133 mmol/L Low 134-146 [facility] Comment on above: Performed By: #### P INR, CBCA, CMP, 56387-6, 42206-9 ####[facility] ([id number])[address] [place] [address] 32814 Urea nitrogen [Mass/Vol] 64 mg/dL High 5-27 [facility] Comment on above: Performed By: #### P INR, CBCA, CMP, 81230-7, 60458-9 ####[facility] ([id number])[address] [place] [address] ABDOMEN AND PELVIS WO CON Ton 12-26-2023 CT ABDOMEN AND PELVIS WO CONT Normal [facility] Chloride (U) [Moles/Vol]on 0 12-26-2023 URINE CHLORIDE,RANDOM 31 mmol/L Normal [facility] Comment on above: Performed By: #### 2 078-4, 2955-3 ####[facility] ([id number])[address] [place] [address], [address] [place] [address] Clinical Pathologyon 024 Clinical Pathology Normal [facility] Comment on above: Result Comment: [facility] [address] [place] [address] Clinical Pathology ReportPatient Name:SHEEBA ADAMES:1945 (Age: 78)Gender:MTaken:12/26/2023eported:12/30/2023hysician(s):Gopal Bird DO ([phone])Copy To: Rec. #:[id number]: #[id number] Pathologic DiagnosisNo monoclonal or other protein bands identified. Report Electronically Signed Out/12/30/2023raz Sherwood MDInterpretation performed at [facility] [place] [address], License number: [id number].Clinical ZygugdpE83.1, D50.9, N17.9, E87.6, N39.0.URINE PROTEIN ELECTROPHORESISSAMPLE NUMBER: [id number] ELECTROPHORETIC CONCENTRATIONS (%) ? 100.0 Urine Protein 660 mg/L(Electrophoretic gels and densitometric tracings on file in lab.)Specimen(s) Received Urine Protein ElectrophoresisFee Codes(s):1; 15272-57 Clinical Pathology Normal [facility] Comment on above: Result Comment: [facility] [facility] [address] [place] [address] Clinical Pathology ReportPatient Name:SHEEBA ADAMES:1945 (Age: 78)Gender:MTaken:12/26/2023eported:12/30/2023hysician(s):Gopal Bird DO ([phone])Copy To: Rec. #:[id number]: #[id number] Pathologic DiagnosisHypoalbuminemia with mild increase in acute phase reactants.Prominent band in beta region, recommend immunofixation for further evaluation. Report Electronically Signed Out12/30/2023raz Sherwood MDInterpretation performed at [facility], [address] [place] [address], License number: [id number].Clinical AqqjcykP57.1, D50.9, N17.9, E87.6, N39.0.SERUM PROTEIN ELECTROPHORESISSAMPLE NO: [id number] FRACTION CONCENTRATIONS (g/dL) PATIENT REFERENCE RANGEAlbumin 2.2 L 3.4 - 5.3Alpha-1 globulin 0.6 H 0.1 - 0.4Alpha-2 globulin 1.0 0.4 - 1.1Beta globulin 1.0 0.5 - 1.2Gamma globulin 1.4 0.5 - 1.6Total protein 6.1 6.0 - 8.0(Electrophoretic gels and densitometric tracings on file in lab.)Specimen(s) Received Serum Protein ElectrophoresisFee Codes(s):1; 56830-51 DNA double strand Ab Qn (S)o n 12-26-2023 DOUBLE STRANDED DNA <1 Normal <5 [facility] Comment on above: Result Comment: ---- ------Interpretation--------<5 Negative5-9 Indeterminate>9 Positive Performed By: #### A HP, 5130-0, 02601-3, SPE, 24308-7, C34, FLCH ####[facility] ([id number])[address] [place] [address], [address] [place] [address]#### 90561-1, 35045-1, 55905-8 ####[facility] ([id number])[address] [place] [address], [place] [address] ELECTROLYTESon 12-26-2023 Anion gap [Moles/Vol] 5 mmol/L Normal 5-15 [facility] Comment on above: Performed By: #### E LEC, HH ####[facility] ([id number])[address] [place] [address] 68745 Chloride [Moles/Vol] 102 mmol/L Normal 98-109 [facility] Comment on above: Performed By: #### E LEC, HH ####[facility] ([id number])[address] [place] [address] 96911 CO2 [Moles/Vol] 29 mmol/L Normal 22-32 [facility] Comment on above: Performed By: #### E LEC, HH ####[facility] ([id number])[address] [place] [address] 66418 Potassium [Moles/Vol] 3.2 mmol/L Low 3.5-5.0 [facility] Comment on above: Performed By: #### E LEC, HH ####[facility] ([id number])[address] [place] [address] 93696 Sodium [Moles/Vol] 136 mmol/L Normal 134-146 [facility] Comment on above: Performed By: #### E LEC, ####[facility] ([id number])[address] [place] [address] 18368 FREE LIGHT CHAINSon 12-26-19 24 FREE MAXWELL/LAMBD RATIO 1.13 Normal 0.26-1.65 [facility] Comment on above: Performed By: #### A HP, 5130-0, 90713-7, SPE, 33818-7, C34, FLCH ####[facility] ([id number])[address] [place] [address], [address] [place] [address]#### 32930-9, 20259-9, 91822-0 ####[facility] ([id number])[address] [place] [address] 55773 FREE KAPPA LT CHAINS 10.41 mg/dL High 0.33-1.94 [facility] Comment on above: Performed By: #### A HP, 5130-0, 98161-8, SPE, 03769-8, C34, FLCH ####[facility] ([id number])[address] [facility], [address] [place] [address]#### 32073-9, 05451-4, 25424-6 ####[facility] ([id number])[address] [place] [address] 61972 FREE LAMBDA LT CHAINS 9.25 mg/dL High 0.57-2.63 [facility] Comment on above: Performed By: #### A HP, 5130-0, 93868-4, SPE, 52977-7, C34, FLCH ####[facility] ([id number])[address] [facility], [address] [place] [address]#### 23284-8, 42415-4, 42443-4 ####[facility] ([id number])[address] [place] [address] 50013 Glucose Glucometer (BldC) [M ass/Vol]on 12-26-2023 Glucose [Mass/Vol] 284 mg/dL High 65-99 [facility] Glucose [Mass/Vol] 217 mg/dL High 65-99 [facility] HGB AND HCTon 12-26-2023 Hematocrit (Bld) [Volume fraction] 22.1 % Low 39-49 [facility] Comment on above: Performed By: #### E LEC, ####[facility] ([id number])[address] [place] [address] 80992 Hemoglobin (Bld) [Mass/Vol] 7.5 g/dL Low 13.0-17.0 [facility] Comment on above: Performed By: #### E LEC, HH ####[facility] ([id number])[address] [place] [address] 71203 Lactate (P luz) [Moles/Vol]o n 12-26-2023 Lactate [Moles/Vol] 1.6 mmol/L Normal 0.4-2.0 [facility] Comment on above: Performed By: #### 2 157-6, THYR, 41315-7, 3084-1 ####[facility] ([id number])[address] [place] [address] 14195 LACTATE W/REFLEX 2.5 mmol/L High 0.4-2.0 [facility] Comment on above: Performed By: #### P INR, CBCA, CMP, 06501-6, 72916-6 ####[facility] ([id number])[address] [place] [address] 67929 Myeloperoxidase IgG Qn (S)on 12-26-2023 Myeloperoxidase IgG 0.3 U Normal <0.4 (Negative) [facility] Comment on above: Result Comment: NOTE Test Performed by:[address] Director: Julio C Ortega Ph.D.; CLIA# [id number] Performed By: #### A HP, 5130-0, 58525-4, SPE, 02046-0, C34, FLCH ####[facility] ([id number])[address] [facility], [address], [place] [address]#### 35181-0, 69307-9, 49797-6 ####[facility] ([id number])[address] [place] [address] 34372 Natriuretic peptide B [Mass/ Vol]on 12-26-2023 Natriuretic peptide B (Bld) [Mass/Vol] 518 pg/mL High <100.0 [facility] Comment on above: Performed By: #### 3 0934-4 ####[facility] ([id number])[address] [place] [address] 32453 Nuclear Ab IA Ql (S)on 12-25 [place] Screen w/reflex Negative Normal NEG [facility] Comment on above: Result Comment: Test ing performed using multiplex flowimmunoassay. Eleven different antigensassociated with systemic autoimmunediseases (dsDNA,Sm,Sm/POWER LINEWORKER,POWER LINEWORKER,Chromatin,SSA,SSB,Tracey-1,Scl70,Ribo P,Centromere B)are included in this screening test. Performed By: #### A HP, 5130-0, 69558-6, SPE, 63667-9, C34, FLCH ####[facility] ([id number])[address] [facility], [address] [place] [address]#### 54651-4, 43463-2, 21109-9 ####[facility] ([id number])[address] [place] [address] 08742 PROTEIN CREAT RATIOon 2023 RANDOM URINE PROTEIN 660 mg/L High <120 [facility] Comment on above: Performed By: #### U PCR ####[facility] ([id number])[address] [place] [address] 34717 U/PRO/DUAL RATE DEALER RATIO CALC 1.66 High <0.2 [facility] Comment on above: Result Comment: Neph rotic Syndrome is associated with ratios >3.5 Performed By: #### U PCR ####[facility] ([id number])[address] [place] [address] 15444 URINE CREATININE,RDM 39.77 mg/dL Normal [facility] Comment on above: Performed By: #### U PCR ####[facility] ([id number])[address] [place] [address] 76693 PROTIME AND INRon 12-26-2023 INR Coag (PPP) [Relative time] 5.9 {INR} Critically high 0.8-1.1 [facility] Comment on above: Performed By: #### P INR, CBCA, CMP, 58766-7, 29891-3 ####[facility] ([id number])[address] [place] [address] 38763 PT Coag (PPP) [Time] 64.1 s High 9.8-13.2 [facility] Comment on above: Result Comment: NEW REFERENCE RANGE Performed By: #### P INR, CBCA, CMP, 76598-3, 41743-2 ####[facility] ([id number])[address] [place] [address] 31525 Proteinase 3 IgG IA Qnon Proteinase 3 IgG <0.2 Normal <0.4 (Negative) [facility] Comment on above: Result Comment: NOTE Test Performed by:[facility] [place] [address]Kjd Director: Julio C Ortega Ph.D.; CLIA# [id number] Performed By: #### A HP, 5130-0, 73362-4, SPE, 22811-3, C34, FLCH ####[facility] ([id number])[address] [facility], [address] [place] [address]#### 77630-3, 57353-7, 86278-4 ####[facility] ([id number])[address] [place] [address] 85274 Rheumatoid factor Nephelomet ry Qn (S)on 12-26-2023 RHEUMATOID FACTOR 10 IU/mL Normal <20 [facility] Comment on above: Performed By: #### A HP, 5130-0, 24678-0, SPE, 89343-0, C34, FLCH ####[facility] ([id number])[address] [facility], [address] [place] [address]#### 72882-7, 31785-6, 95577-4 ####[facility] ([id number])[address] [place] [address] 28470 SERUM PROTEIN ELECTROPHORESI [facility] 12-26-2023 Albumin [Mass/Vol] 2.2 g/dL Low 3.4-5.3 [facility] Comment on above: Performed By: #### A HP, 5130-0, 72314-5, SPE, 06528-2, C34, FLCH ####[facility] ([id number])[address], [address] [place] [address]#### 20008-6, 62150-1, 33464-7 ####[facility] ([id number])[address] [place] [address] 13395 ALPHA 1 GLOBULIN 0.6 g/dL High 0.1-0.4 [facility] Comment on above: Performed By: #### A HP, 5130-0, 84115-6, SPE, 28173-8, C34, FLCH ####[facility] ([id number])[address], [address] [place] [address]21#### 45917-1, 13876-6, 95023-4 ####[facility] ([id number])[address] [place] [address] 88667 ALPHA 2 GLOBULIN 1.0 g/dL Normal 0.4-1.1 [facility] Comment on above: Performed By: #### A HP, 5130-0, 80937-2, SPE, 19734-3, C34, FLCH ####[facility] ([id number])[address], [address] [place] [address]#### 81041-2, 00000-4, 10531-7 ####[facility] ([id number])[address] [place] [address] 23399 BETA GLOBULIN 1.0 g/dL Normal 0.5-1.2 [facility] Comment on above: Performed By: #### A HP, 5130-0, 94271-6, SPE, 49739-1, C34, FLCH ####[facility] ([id number])[address], [address] [place] [address]#### 28262-5, 09543-6, 71484-9 ####[facility] ([id number])[address] [place] [address] 09271 GAMMA GLOBULIN 1.4 g/dL Normal 0.5-1.6 [facility] Comment on above: Performed By: #### A HP, 5130-0, 28771-1, SPE, 98084-7, C34, FLCH ####[facility] ([id number])[address], [address] [place] [address]#### 50603-2, 99754-2, 95177-2 ####[facility] ([id number])[address] [place] [address] 92305 PROT. ELECTROPHORESIS INTERP SEE SEPARATE REPORT Normal [facility] Comment on above: Performed By: #### A HP, 5130-0, 14394-9, SPE, 92099-4, C34, FLCH ####[facility] ([id number])[address], [address] [place] [address]#### 77377-8, 42236-4, 81505-0 ####[facility] ([id number])[address] [place] [address] 07123 Protein [Mass/Vol] 6.1 g/dL Normal 6.0-8.0 [facility] Comment on above: Performed By: #### A HP, 5130-0, 62011-3, SPE, 65291-6, C34, FLCH ####[facility] ([id number])[address], [address] [place] [address] 6[address]#### 68850-3, 78373-6, 73435-0 ####[facility] ([id number])[address] [place] [address], [place] [address] THYROID PROFILEon 12-26-2023 Free T4 [Mass/Vol] 1.18 ng/dL Normal 0.61-1.60 [facility] Comment on above: Performed By: #### 2 157-6, THYR, 10426-3, 3084-1 ####[facility] ([id number])[address] [place] [address] 41205 TSH 0.66 uIU/mL Normal 0.49-4.67 [facility] Comment on above: Performed By: #### 2 157-6, THYR, 83609-8, 3084-1 ####[facility] ([id number])[address] [place] [address] 64459 URIC ACIDon 12-26-2023 Urate [Mass/Vol] 8.5 mg/dL High 2.6-7.2 [facility] Comment on above: Performed By: #### 2 157-6, THYR, 15872-2, 3084-1 ####[facility] ([id number])[address] [place] [address] 80854 URINALYSISon 12-26-2023 Bilirubin Ql (U) Negative Normal NEG [facility] Comment on above: Performed By: #### U A ####[facility] ([id number])[address] [place] [address] [place] [address] BLOOD/HGB Large Abnormal NEG [facility] Comment on above: Performed By: #### U A ####[facility] ([id number])[address] [place] [address] [place] [address] Color (U) YELLOW Normal YELLOW [facility] Comment on above: Performed By: #### U A ####[facility] ([id number])[address] [place] [address] [place] [address] Glucose Ql (U) Negative Normal NEG [facility] Comment on above: Performed By: #### U A ####[facility] ([id number])[address] [place] [address] 06964 Ketones Ql (U) Negative Normal NEG [facility] Comment on above: Performed By: #### U A ####[facility] ([id number])[address] [place] [address] 84190 Leukocyte esterase Test strip Ql (U) Large Abnormal NEG [facility] Comment on above: Performed By: #### U A ####[facility] ([id number])[address] [place] [address] 74195 Nitrite Ql (U) Negative Normal NEG [facility] Comment on above: Performed By: #### U A ####[facility] ([id number])[address] [place] [address] 02640 pH (U) 6.0 [pH] Normal 5.0-8.5 [facility] Comment on above: Performed By: #### U A ####[facility] ([id number])[address] [place] [address] 42785 Protein Ql (U) 30 mg/dL Abnormal NEG [facility] Comment on above: Performed By: #### U A ####[facility] ([id number])[address] [place] [address] 85586 R.B.CELLS 45 /hpf High 0-5 [facility] Comment on above: Performed By: #### U A ####[facility] ([id number])[address] [place] [address] 63660 Specific gravity (U) [Rel density] <1.005 Normal 1.003-1.035 [facility] Comment on above: Performed By: #### U A ####[facility] ([id number])[address] [place] [address] [place] [address] SQUAMOUS EPITHELIUM 0 /hpf Normal 0-5 [facility] Comment on above: Performed By: #### U A ####[facility] ([id number])[address] [place] [address] [place] [address] TURBIDITY CLOUDY Abnormal CLEAR [facility] Comment on above: Performed By: #### U A ####[facility] ([id number])[address] [place] [address] 32328 Urobilinogen Qn (U) 0.2 {Kassy'U}/dL Normal <1.1 [facility] Comment on above: Performed By: #### U A ####[facility] ([id number])[address] [place] [address] 43842 W.B.CELLS >100 High 0-5 [facility] Comment on above: Performed By: #### U A ####[facility] ([id number])[address] [place] [address] [place] [address] WBC CLUMPS FEW Abnormal NONE [facility] Comment on above: Performed By: #### U A ####[facility] ([id number])[address] [place] [address] 20324 URINE CULTUREon 12-26-2023 Bacteria identified Cx Nom (U) Susceptible [facility] Comment on above: Performed By: #### 6 30-4 ####[facility] ([id number])[address] [facility], [address] [address] URINE PROTEIN ELECTROPHORESI Son 12-26-2023 UPREL INTERP SEE SEPARATE REPORT Normal [facility] URINE SODIUM,RANDOMon 2023 Sodium (U) [Moles/Vol] 39 mmol/L Normal [facility] Comment on above: Performed By: #### 2 078-4, 2955-3 ####[facility] ([id number])[address] [address] XR CHEST 1 VWon 12-26-2023 XR CHEST 1 VW Normal [facility] aPTT Coag (PPP) [Time]on aPTT Coag (Bld) [Time] 45 s High 26-37 [facility] Comment on above: Result Comment: NEW REFERENCE RANGE Performed By: #### P INR, CBCA, CMP, 52234-7, 19670-8 ####[facility] ([id number])[address] [place] [address] 27516 CBC AND AUTO DIFFon 12-24-19 24 ABSOLUTE BASOPHIL 0.0 X10E9/L Normal 0.0-0.2 [facility] Comment on above: Performed By: #### 3 034-6, FEPR, 2275-4 ####[facility] ([id number])[address] [address]#### CBCA, CMP ####[facility] ([id number])[address] [place] [address] 70068 ABSOLUTE NEUTROPHIL 13.6 X10E9/L High 1.5-6.6 [facility] Comment on above: Performed By: #### 3 034-6, FEPR, 2275-4 ####[facility] ([id number])[address] [address]#### CBCA, CMP ####[facility] ([id number])[address] [place] [address] 20706 Basophils/100 WBC (Bld) 0.0 % Normal [facility] Comment on above: Performed By: #### 3 034-6, FEPR, 2275- ####[facility] ([id number])[address] [address]#### CBCA, CMP ####[facility] ([id number])[address] [place] [address] 21899 Eosinophils (Bld) [#/Vol] 0.0 10*3/uL Normal 0.0-0.4 [facility] Comment on above: Performed By: #### 3 034-6, FEPR, 2275-09 ####[facility] ([id number])[address], [address] [place] [address]#### CBCA, CMP ####[facility] ([id number])[address] [place] [address] 54345 Eosinophils/100 WBC (Bld) 0.2 % Normal [facility] Comment on above: Performed By: #### 3 034-6, FEPR, 2275-09 ####[facility] ([id number])[address] [address] [place] [address]136#### CBCA, CMP ####[facility] ([id number])[address] [place] [address] 67712 Erythrocyte distribution width (RBC) [Ratio] 15.5 % High 11.5-15.0 [facility] Comment on above: Performed By: #### 3 034-6, FEPR, 2275-09 ####[facility] ([id number])[address] [address] [place] [address]28#### CBCA, CMP ####[facility] ([id number])[address] [place] [address] 47206 Hematocrit (Bld) [Volume fraction] 22.8 % Low 39-49 [facility] Comment on above: Performed By: #### 3 034-6, FEPR, 2275-09 ####[facility] ([id number])[address], [address] [place] [address] 70410#### CBCA, CMP ####[facility] ([id number])[address] [place] [address] 96477 Hemoglobin (Bld) [Mass/Vol] 7.8 g/dL Low 13.0-17.0 [facility] Comment on above: Performed By: #### 3 034-6, FEPR, 2275- ####[facility] ([id number])[address], [address] [address]#### CBCA, CMP ####[facility] ([id number])[address] [place] [address] 08918 Lymphocytes (Bld) [#/Vol] 1.1 10*3/uL Normal 1.0-3.5 [facility] Comment on above: Performed By: #### 3 034-6, FEPR, 2275-09 ####[facility] ([id number])[address] [address]#### CBCA, CMP ####[facility] ([id number])[address] [place] [address] 43383 Lymphocytes/100 WBC (Bld) 7.2 % Normal [facility] Comment on above: Performed By: #### 3 034-6, FEPR, 2275-09 ####[facility] ([id number])[address] [address]#### CBCA, CMP ####[facility] ([id number])[address] [place] [address] 46969 MCH (RBC) [Entitic mass] 26.1 pg Low 27-34 [facility] Comment on above: Performed By: #### 3 034-6, FEPR, 2275-09 ####[facility] ([id number])[address] [address] [place] [address]#### CBCA, CMP ####[facility] ([id number])[address] [place] [address] 51521 MCHC (RBC) [Mass/Vol] 34.3 g/dL Normal 32-36 [facility] Comment on above: Performed By: #### 3 034-6, FEPR, 2275-09 ####[facility] ([id number])[address], [address] [place] [address] 32360#### CBCA, CMP ####[facility] ([id number])[address] [place] [address] 56230 MCV (RBC) [Entitic vol] 76 fL Low 80-100 [facility] Comment on above: Performed By: #### 3 034-6, FEPR, 2275-09 ####[facility] ([id number])0 [facility], [address] [place] [address]#### CBCA, CMP ####[facility] ([id number])[address] [place] [address] 03655 Monocytes (Bld) [#/Vol] 0.8 10*3/uL Normal 0-0.9 [facility] Comment on above: Performed By: #### 3 034-6, FEPR, 2275-09 ####[facility] ([id number])0 [facility], [address] [place] [address] 95050#### CBCA, CMP ####[facility] ([id number])[address] [place] [address] 83907 Monocytes/100 WBC (Bld) 5.2 % Normal [facility] Comment on above: Performed By: #### 3 034-6, FEPR, 2275-09 ####[facility] ([id number])2130 [facility], [address] [place] [address] 63326#### CBCA, CMP ####[facility] ([id number])[address] [place] [address] 54377 Neutrophils/100 WBC (Bld) 87.4 % Normal [facility] Comment on above: Performed By: #### 3 034-6, FEPR, 2275-09 ####[facility] ([id number])[address], [address] [place] [address] 46633#### CBCA, CMP ####[facility] ([id number])[address] [place] [address] 81987 Platelet mean volume (Bld) [Entitic vol] 6.8 fL Low 7-12 [facility] Comment on above: Performed By: #### 3 034-6, FEPR, 2275-09 ####[facility] ([id number])[address], [address] [place] [address] 50524#### CBCA, CMP ####[facility] ([id number])[address] [place] [address] 90068 Platelets (Bld) [#/Vol] 224 10*3/uL Normal 150-450 [facility] Comment on above: Performed By: #### 3 034-6, FEPR, 2275-09 ####[facility] ([id number])[address], [address] [place] [address] 14639#### CBCA, CMP ####[facility] ([id number])[address] [place] [address] 11196 RBC COUNT 3.00 X10E12/L Low 4.10-5.70 [facility] Comment on above: Performed By: #### 3 034-6, FEPR, 2275-09 ####[facility] ([id number])[address], [address], [place] [address]#### CBCA, CMP ####[facility] ([id number])[address] [place] [address] 81372 WBC (Bld) [#/Vol] 15.6 10*3/uL High 4.0-11.0 [facility] Comment on above: Performed By: #### 3 034-6, FEPR, 6-4 ####[facility] ([id number])[address], [address] [place] [address] 78175#### CBCA, CMP ####[facility] ([id number])[address] [place] [address]3800 COMPREHENSIVE METABOLIC PANE [place] 12-24-2023 Albumin [Mass/Vol] 2.0 g/dL Low 3.2-5.3 [facility] Comment on above: Performed By: #### 3 034-6, FEPR, 2275-4 ####[facility] ([id number])[address] [address] [place] [address] 05979#### CBCA, CMP ####[facility] ([id number])[address] [place] [address] 64114 ALP [Catalytic activity/Vol] 88 U/L Normal 39-130 [facility] Comment on above: Performed By: #### 3 034-6, FEPR, 6-4 ####[facility] ([id number])2130 [address], [address] [place] [address]#### CBCA, CMP ####[facility] ([id number])[address] [place] [address] 97378 ALT [Catalytic activity/Vol] 23 U/L Normal 0-40 [facility] Comment on above: Performed By: #### 3 034-6, FEPR, 6-4 ####[facility] ([id number])[address] [address] [place] [address]#### CBCA, CMP ####[facility] ([id number])[address] [place] [address] 97576 Anion gap [Moles/Vol] 8 mmol/L Normal 5-15 [facility] Comment on above: Performed By: #### 3 034-6, FEPR, 2275-09 ####[facility] ([id number])[address], [place] [address]#### CBCA, CMP ####[facility] ([id number])[address] [place] [address] 81269 AST [Catalytic activity/Vol] 18 U/L Normal 0-41 [facility] Comment on above: Performed By: #### 3 034-6, FEPR, 2275-09 ####[facility] ([id number])[address], [address] [place] [address]#### CBCA, CMP ####[facility] ([id number])[address] [place] [address] 41910 Bilirubin [Mass/Vol] 0.4 mg/dL Normal 0.3-1.2 [facility] Comment on above: Performed By: #### 3 034-6, FEPR, 2275-09 ####[facility] ([id number])[address], [place] [address]#### CBCA, CMP ####[facility] ([id number])[address] [place] [address] 71013 Calcium [Mass/Vol] 7.6 mg/dL Low 8.5-10.5 [facility] Comment on above: Performed By: #### 3 034-6, FEPR, 2275-09 ####[facility] ([id number])[address] [place] [address]#### CBCA, CMP ####[facility] ([id number])[address] [place] [address] 43812 Chloride [Moles/Vol] 97 mmol/L Low 98-109 [facility] Comment on above: Performed By: #### 3 034-6, FEPJoaquin, 2275-09 ####[facility] ([id number])[address], [address] [address]#### CBCA, CMP ####[facility] ([id number])[address] [place] [address] 23400 CO2 [Moles/Vol] 30 mmol/L Normal 22-32 [facility] Comment on above: Performed By: #### 3 034-6, BRANDON, 2275-09 ####[facility] ([id number])2130 [facility], [address] [address]#### RONDAA, CMP ####[facility] ([id number])[address] [place] [address] 6[address]10 Creatinine [Mass/Vol] 1.85 mg/dL High 0.70-1.20 [facility] Comment on above: Result Comment: METH OD TRACEABLE TO IDMS STANDARD Performed By: #### 3 034-6, FEPJoaquin, 2275-09 ####[facility] ([id number])[address] [address]#### CBCA, CMP ####[facility] ([id number])[address] [place] [address] 56827 GFR/1.73 sq M.predicted among non-blacks MDRD (S/P/Bld) [Vol rate/Area] 37 mL/min/{1.73_m2} Low >59 [facility] Comment on above: Result Comment: Repo rted eGFR is based on theCKD-EPI 2020 equation that doesnot use a race coefficient. Performed By: #### 3 034-6, FEPR, 2275-09 ####[facility] ([id number])[address], [place] [address]#### CBCA, CMP ####[facility] ([id number])[address] [place] [address] 91389 Glucose [Mass/Vol] 237 mg/dL High 65-99 [facility] Comment on above: Performed By: #### 3 034-6, FEPR, 2275-4 ####[facility] ([id number])2129 [facility], [address] [place] [address]#### CBCA, CMP ####[facility] ([id number])[address] [place] [address]129 Potassium [Moles/Vol] 3.2 mmol/L Low 3.5-5.0 [facility] Comment on above: Performed By: #### 3 034-6, FEPR, 2275-09 ####[facility] ([id number])2129 [facility], [address] [place] [address]#### CBCA, CMP ####[facility] ([id number])[address] [place] [address] 21884 Protein [Mass/Vol] 7.0 g/dL Normal 6.0-8.0 [facility] Comment on above: Performed By: #### 3 034-6, FEPR, 2275-09 ####[facility] ([id number])2129 [facility], [address] [place] [address]#### CBCA, CMP ####[facility] ([id number])[address] [place] [address] 21061 Sodium [Moles/Vol] 135 mmol/L Normal 134-146 [facility] Comment on above: Performed By: #### 3 034-6, FEPR, 2275- ####[facility] ([id number])[address] [facility] [address], [place] [address]#### CBCA, CMP ####[facility] ([id number])[address] [place] [address] 38431 Urea nitrogen [Mass/Vol] 59 mg/dL High 5-27 [facility] Comment on above: Performed By: #### 3 034-6, FEPR, 2275-4 ####[facility] ([id number])0 [facility], [address], [place] [address]#### CBCA, CMP ####[facility] ([id number])[address] [place] [address] 86309 FERRITINon 12-24-2023 Ferritin [Mass/Vol] 522 ng/mL High 24-336 [facility] Comment on above: Performed By: #### 3 034-6, FEPR, 2275- ####[facility] ([id number])[address] [facility] [address] [place] [address]#### CBCA, CMP ####[facility] ([id number])[address] [place] [address] 85702 IRON PROFILEon 12-24-2023 Iron [Mass/Vol] 18 ug/dL Low 50-212 [facility] Comment on above: Performed By: #### 3 034-6, FEPR, 2275- ####[facility] ([id number])0 [facility], [address] [place] [address]#### CBCA, CMP ####[facility] ([id number])[address] [place] [address] 85791 IRON BINDING 140 ug/dL Low 250-425 [facility] Comment on above: Performed By: #### 3 034-6, FEPR, 2275- ####[facility] ([id number])0 [facility], [address] [address]#### CBCA, CMP ####[facility] ([id number])[address] [place] [address] 04730 IRON SATURATION 13 % SATURATION Low 20-50 [facility] Comment on above: Performed By: #### 3 034-6, FEPR, 2276-4 ####[facility] ([id number])[address] [address]#### CBCA, CMP ####[facility] ([id number])[address] [place] [address] 16697 TRANSFERRINon 12-24-2023 Transferrin [Mass/Vol] 100 mg/dL Low 168-336 [facility] Comment on above: Performed By: #### 3 034-6, FEPR, 2276-4 ####[facility] ([id number])[address] [place] [address]#### CBCA, CMP ####[facility] ([id number])[address] [place] [address] 56819 UA (MICROSCOPIC)on 4 R.B.CELLS 5 to 10 Normal 0-5 [facility] Comment on above: Performed By: #### U JABARI ####[facility] ([id number])[address] [place] [address] 41748 SQUAMOUS EPITHELIUM 2 to 5 Normal 0-5 [facility] Comment on above: Performed By: #### U JABARI ####[facility] ([id number])[address] [place] [address] 14679 W.B.CELLS >100 High 0-5 [facility] Comment on above: Performed By: #### U JABARI ####[facility] ([id number])[address] [place] [address] 48183 URINE CULTUREon 12-24-2023 Bacteria identified Cx Nom (U) Susceptible [facility] Comment on above: Performed By: #### 6 30-4 ####[facility] ([id number])2130 [facility], [address] [place] [address] 95495 POCT Protime / INRon 024 INR Coag (PPP) [Relative time] 4.0 {INR} Abnormal 0.8 - 1.[address] [facility] Interpretation and review of laboratory results Abnormal [facility] POCT Protime / INRon 024 INR Coag (PPP) [Relative time] 6.3 {INR} Abnormal 0.8 - 1.[address] [facility] Interpretation and review of laboratory results Abnormal [facility] POCT Protime / INRon 024 INR Coag (PPP) [Relative time] 6.0 {INR} Abnormal 0.8 - 1.[address] [facility] Interpretation and review of laboratory results Abnormal [facility] Measure post void residualon 12-10-2023 Volume 142ml [facility] XR CHEST 2 VIEWSon XR CHEST 2 VIEWS FINDINGS: Comparison made with prior exam November 21, 2023 Improved aeration within both bases with mild diffuse persistent interstitial prominence, left ventricular enlargement. No pleural effusion IMPRESSION: Improved aeration within the bases consistent with resolving pneumonia, mild residual interstitial postinflammatory changes TRANSCRIBED BY: ELECTRONICALLY SIGNED BY: Garcia Mccann MD Normal Not Available POCT Protime / INRon 024 INR Coag (PPP) [Relative time] 4.2 {INR} Abnormal 0.8 - 1.[address] [facility] Interpretation and review of laboratory results Abnormal [facility] POCT Protime / INRon 024 INR Coag (PPP) [Relative time] 3.6 {INR} Abnormal 0.8 - 1.[address] [facility] Interpretation and review of laboratory results Abnormal [facility] PROTIME AND INRon 11-24-2023 INR Coag (PPP) [Relative time] 9.0 {INR} Critically high 0.8-1.1 [facility] Comment on above: Performed By: #### P INR ####[facility] ([id number])[address] [place] [address] 53861 PT Coag (PPP) [Time] 97.2 s High 9.8-13.2 [facility] Comment on above: Result Comment: NEW REFERENCE RANGE Performed By: #### P INR ####[facility] ([id number])[address] [place] [address] 92745 Protime/INRon 11-24-2023 INR Coag (PPP) [Relative time] 9.0 {INR} Critically high [facility] Interpretation and review of laboratory results Abnormal [facility] PT Coag (PPP) [Time] 97.2 s High [facility] Comment on above: NEW REFERENCE RANGE [facility] XR CHEST 2 VIEWSon 4 XR CHEST 2 VIEWS FINDINGS: Mild reduction in lung volumes accentuate diffuse interstitial markings, greatest involvement within the bases. Blunted posterior CP angles. Mild global cardiac enlargement. No parenchymal consolidation. IMPRESSION: Parenchymal findings may represent interstitial pneumonia given the appropriate clinical setting vs conceivably interstitial edema. TRANSCRIBED BY: ELECTRONICALLY SIGNED BY: Garcia Mccann MD Normal Not Available Cheryl fry 11-12-2023 Applied in clinic today M ANUALLY TRANSCRIBED RESULTS Unna bootOrdered By: Kelly Zaman on 11-12-2023 [facility] Maxorb II Alginateon 024 Applied in clinic today M ANUALLY TRANSCRIBED RESULTS [facility] POCT Protime / INRon 024 INR Coag (PPP) [Relative time] 4.0 {INR} Abnormal 0.8 - 1.[address] [facility] Interpretation and review of laboratory results Abnormal [facility] POCT Protime / INRon 024 INR Coag (PPP) [Relative time] 3.7 {INR} Abnormal 0.8 - 1.2 [facility] Interpretation and review of laboratory results Abnormal [facility] POCT Protime / INRon 024 INR Coag (PPP) [Relative time] 2.4 {INR} Abnormal 0.8 - 1.2 [facility] Interpretation and review of laboratory results Abnormal [facility] POCT Protime / INRon 024 INR Coag (PPP) [Relative time] 1.8 {INR} Abnormal 0.8 - 1.2 [facility] Interpretation and review of laboratory results Abnormal [facility] Basic Metabolic Panelon 07-25 Anion gap [Moles/Vol] 10 mmol/L 5 - 15 mmol/L [facility] Calcium [Mass/Vol] 8.9 mg/dL 8.5 - 10. 5 mg/dL [facility] Chloride [Moles/Vol] 105 mmol/L 98 - 109 mmol/L [facility] CO2 [Moles/Vol] 27 mmol/L 22 - 32 mmol/L [facility] Creatinine [Mass/Vol] 0.78 mg/dL 0.60 - 1.30 mg/dL [facility] Comment on above: METHOD TRACEABLE TO IDND STANDARD eGFR (CKD-EPI)non-race dependent - PINF [facility] Comment on above: Reported eGFR is based on the CKD-EPI 2020 equation that does not use a race coefficient. Glucose [Mass/Vol] 172 mg/dL High 65 - 99 mg/dL [facility] Potassium [Moles/Vol] 3.8 mmol/L 3.5 - 5.0 mmol/L [facility] Sodium [Moles/Vol] 142 mmol/L 134 - 146 mmol/L [facility] Urea nitrogen [Mass/Vol] 19 mg/dL 5 - 27 mg/dL [facility] Hemoglobinon 08-13-2023 Hemoglobin (Bld) [Mass/Vol] 15.4 g/dL 13.0 - 17.0 g/dL [facility] No Panel Informationon 08-13 Interpretation and review of laboratory results Abnormal [facility] POCT Protime / INRon 024 INR Coag (PPP) [Relative time] 2.5 {INR} Abnormal 0.8 - 1.2 [facility] XR Chest PA and Lateralon Yash Rinaldi MD - 08/13/2023 Procedure: Chest x-ray performed Number of views:2 History:Preop diabetes heart disease Comparison:02/17/2023 Findings: The heart and lungs show no acute findings, and the mediastinum and kaia are grossly negative . Impression: 1. No acute change. Finalized by Yash Rinaldi MD on 08/13/2023 10:22 AM [facility] Radiology Study observation (narrative) [facility] XR Chest PA and LateralOrder ed By: Yash Rinaldi on 08-13-2023 [facility] Work Phone: POCT EKGon 07-29-2023 [facility] POCT Protime / INRon 024 INR Coag (PPP) [Relative time] 2.8 {INR} Abnormal 0.8 - 1.2 [facility] Interpretation and review of laboratory results Abnormal [facility] Comprehensive Metabolic Pane [place] 11-30-2021 Albumin [Mass/Vol] 3.9 g/dL Normal 3.6-5.1 [facility] [employer] Comment on above: Performed By: #### L BRENNAN CMP #### [facility] [address], [place] [id number] Albumin/Globulin [Mass ratio] 1.3 {ratio} Normal 1.0-2.5 [facility] [employer] Comment on above: Performed By: #### L BRENNAN, CMP #### [facility] [address], [place] [id number] ALP [Catalytic activity/Vol] 126 U/L Normal 40-129 [facility] [employer] Comment on above: Performed By: #### L BRENNAN CMP #### [facility] [address], [place] [id number] ALT [Catalytic activity/Vol] 25 U/L Normal 9-46 [facility] [employer] Comment on above: Result Comment: 05/23 Female reference range changed. Performed By: #### L BRENNAN, CMP #### [facility] [address], [place] [id number] Anion gap [Moles/Vol] 14 mmol/L Normal 12-20 [facility] Comment on above: Result Comment: Effe ctive 06/28/2019 reference range changed. Performed By: #### L IPD, CMP #### [facility] [address], [place] [id number] AST [Catalytic activity/Vol] 17 U/L Normal 10-40 [facility] Comment on above: Performed By: #### L IPD, CMP #### [facility] [address], [place] [id number] Bilirubin [Mass/Vol] 0.64 mg/dL Normal 0.30-1.20 [facility] Comment on above: Performed By: #### L IPD, CMP #### [facility] [address], [place] [id number] BUN/CREA 18 Ratio Normal 6-22 [facility] Comment on above: Performed By: #### L IPD, CMP #### [facility] [address], [place] [id number] Calcium [Mass/Vol] 9.2 mg/dL Normal 8.6-10.2 [facility] Comment on above: Performed By: #### L IPD, CMP #### [facility] [address], [place] [id number] Chloride [Moles/Vol] 102 mmol/L Normal 98-107 [facility] Comment on above: Performed By: #### L IPD, CMP #### [facility] [address], [place] [id number] CO2 [Moles/Vol] 27 mmol/L Normal 20-31 [facility] Comment on above: Performed By: #### L IPD, CMP #### [facility] [address], [place] [id number] Creatinine [Mass/Vol] 0.7 mg/dL Normal 0.7-1.4 [facility] Comment on above: Performed By: #### L IPD, CMP #### [facility] [address], [place] [id number] eGFRAA 127 mL/min/1.73m2 Normal >60 [facility] Comment on above: Performed By: #### L IPD, CMP #### [facility] [address], [place] [id number] eGFRNAA 104 mL/min/1.73m2 Normal >60 [facility] [employer] Comment on above: Performed By: #### L IPD, CMP #### [facility] [address], [place] [id number] Globulin (S) [Mass/Vol] 2.9 g/dL Normal 1.9-3.7 [facility] [employer] Comment on above: Performed By: #### L IPD, CMP #### [facility] [address], [place] [id number] Glucose [Mass/Vol] 131 mg/dL High 65-99 [facility] [employer] Comment on above: Result Comment: For FASTING Glucose --- ADA reference ranges: Normal 65-99 mg/dl Prediabetes 100-125 Diabetes >/= 126 Performed By: #### L IPD, CMP #### [facility] [address], [place] [id number] Potassium [Moles/Vol] 4.2 mmol/L Normal 3.5-5.5 [facility] [employer] Comment on above: Performed By: #### L IPD, CMP #### [facility] [address], [place] [id number] Protein [Mass/Vol] 6.8 g/dL Normal 6.1-8.1 [facility] [employer] Comment on above: Performed By: #### L IPD, CMP #### [facility] [address], [place] [id number] Sodium [Moles/Vol] 139 mmol/L Normal 135-146 [facility] [employer] Comment on above: Performed By: #### L IPD, CMP #### [facility] [address], [place] [id number] Urea nitrogen [Mass/Vol] 13 mg/dL Normal 7-25 [facility] [employer] Comment on above: Performed By: #### L IPD, CMP #### [facility] [address], [place] [id number] Hemoglobin A1Con 11-30-2021 EAG 145.59 Normal [facility] [employer] Comment on above: Performed By: #### A 1C #### [facility] [address], [place] [id number] HbA1c (Bld) [Mass fraction] 6.7 % High 4.0-6.0 [facility] Comment on above: Performed By: #### A 1C #### [facility] [address], [place] [id number] Lipid Panelon 11-30-2021 Cholesterol [Mass/Vol] 106 mg/dL Low 125-200 [facility] [employer] Comment on above: Result Comment: Low risk < 200mg/dL Borderline risk 201-239 mg/dl High risk > or equal to 240 Performed By: #### L IPD, CMP #### [facility] [address], [place] [id number] Cholesterol in HDL [Mass/Vol] 33 mg/dL Low >40 [facility] [employer] Comment on above: Result Comment: High Cardiovascular Risk HDL <40 mg/dL Low Cardiovascular Risk HDL > or equal to 60 mg/dl Performed By: #### L IPD, CMP #### [facility] [address], [place] [id number] Cholesterol in LDL [Mass/Vol] 46 mg/dL Normal [facility] Comment on above: Result Comment: LDL ATP III CLASSIFICATION LDL less than 100 mg/dl Optimal LDL 100-129 mg/dl Near or above optimal LDL 130-159 Borderline high LDL 160-189 High LDL greater than 189 mg/dl Very High Performed By: #### L IPD, CMP #### [facility] [address], [place] [id number] Cholesterol in VLDL [Mass/Vol] 27 mg/dL Normal [facility] Comment on above: Performed By: #### L IPD, CMP #### [facility] [address], [place] [id number] Cholesterol.total/C holesterol in HDL [Mass ratio] 3 {ratio} Normal [facility] Comment on above: Performed By: #### L IPD, CMP #### [facility] [address], [place] [id number] Triglyceride [Mass/Vol] 136 mg/dL Normal 30-150 [facility] [employer] Comment on above: Result Comment: TRIG ATPIII CLASSIFICATIONS TRIG less than 150 mg/dl Normal TRIG 150-199 mg/dl Borderline High TRIG 200-500 mg/dl High TRIG greather than 500 mg/dl Very High Performed By: #### L IPD, CMP #### [facility] [address], [place] [id number] PSA SCREEN (MEDICARE)on 11-21 TPSA 6.690 ng/mL High <4.000 [facility] Comment on above: Result Comment: PSA Test Method: ECLIA/Josse e 601 Performed By: #### P SA #### [facility] [address], [place] [id number] Comprehensive Metabolic Pane [place] 08-29-2021 Albumin [Mass/Vol] 4.0 g/dL Normal 3.6-5.1 [facility] Comment on above: Performed By: #### C MP #### [facility] [address], [place] [id number] Albumin/Globulin [Mass ratio] 1.6 {ratio} Normal 1.0-2.5 [facility] Comment on above: Performed By: #### C MP #### [facility] [address], [place] [id number] ALP [Catalytic activity/Vol] 120 U/L Normal 40-129 [facility] Comment on above: Performed By: #### C MP #### [facility] [address], [place] [id number] ALT [Catalytic activity/Vol] 32 U/L Normal 9-46 [facility] Comment on above: Result Comment: 05/23 Female reference range changed. Performed By: #### C MP #### [facility] [address], [place] [id number] Anion gap [Moles/Vol] 18 mmol/L Normal 12-20 [facility] Comment on above: Result Comment: Effe ctive 06/28/2019 reference range changed. Performed By: #### C MP #### [facility] [address], [place] [id number] AST [Catalytic activity/Vol] 21 U/L Normal 10-40 [facility] Comment on above: Performed By: #### C MP #### [facility] [address], [place] [id number] Bilirubin [Mass/Vol] 0.49 mg/dL Normal 0.30-1.20 [facility] Comment on above: Performed By: #### C MP #### [facility] [address], [place] [id number] BUN/CREA 20 Ratio Normal 6-22 [facility] Comment on above: Performed By: #### C MP #### [facility] [address], [place] [id number] Calcium [Mass/Vol] 9.0 mg/dL Normal 8.6-10.2 [facility] Comment on above: Performed By: #### C MP #### [facility] [address], [place] [id number] Chloride [Moles/Vol] 103 mmol/L Normal 98-107 [facility] Comment on above: Performed By: #### C MP #### [facility] [address], [place] [id number] CO2 [Moles/Vol] 25 mmol/L Normal 20-31 [facility] Comment on above: Performed By: #### C MP #### [facility] [address], [place] [id number] Creatinine [Mass/Vol] 0.7 mg/dL Normal 0.7-1.4 [facility] Comment on above: Performed By: #### C MP #### [facility] [address], [place] [id number] eGFRAA 142 mL/min/1.73m2 Normal >60 [facility] Comment on above: Performed By: #### C MP #### [facility] [address], [place] [id number] eGFRNAA 117 mL/min/1.73m2 Normal >60 [facility] Comment on above: Performed By: #### C MP #### [facility] [address], [place] [id number] Globulin (S) [Mass/Vol] 2.5 g/dL Normal 1.9-3.7 [facility] Comment on above: Performed By: #### C MP #### [facility] [address], [place] [id number] Glucose [Mass/Vol] 179 mg/dL High 65-99 [facility] [employer] Comment on above: Result Comment: For FASTING Glucose --- ADA reference ranges: Normal 65-99 mg/dl Prediabetes 100-125 Diabetes >/= 126 Performed By: #### C MP #### [facility] [address], [place] [id number] Potassium [Moles/Vol] 4.0 mmol/L Normal 3.5-5.5 [facility] [employer] Comment on above: Performed By: #### C MP #### [facility] [address], [place] [id number] Protein [Mass/Vol] 6.5 g/dL Normal 6.1-8.1 [facility] [employer] Comment on above: Performed By: #### C MP #### [facility] [address], [place] [id number] Sodium [Moles/Vol] 142 mmol/L Normal 135-146 [facility] [employer] Comment on above: Performed By: #### C MP #### [facility] [address], [place] [id number] Urea nitrogen [Mass/Vol] 13 mg/dL Normal 7-25 [facility] [employer] Comment on above: Performed By: #### C MP #### [facility] [address], [place] [id number] Hemoglobin A1Con 08-29-2021 EAG 154.20 Normal [facility] [employer] Comment on above: Performed By: #### A 1C #### [facility] [address], [place] [id number] HbA1c (Bld) [Mass fraction] 7.0 % High 4.0-6.0 [facility] [employer] Comment on above: Performed By: #### A 1C #### [facility] [address], [place] [id number] Vital Signs Date Time Vital Sign Value Performing Clinician Leslie goldstein 11-02-2024 12:05-0400 Body height 182.9 cm Kristal Johnson NP Work Phone: [facility] 11-02-2024 12:05-0400 Body mass index (BMI) [Ratio] 29.16 kg/m2 Kristal Zelayak DIRECTOR OF MUSIC Work Phone: [facility] 11-02-2024 12:05-0400 Body temperature 98.8 [degF] Kristal Zelayak DIRECTOR OF MUSIC Work Phone: [facility] 11-02-2024 12:05-0400 Body weight 97.52 kg Kristal Zelayak DIRECTOR OF MUSIC Work Phone: [facility] 11-02-2024 12:05-0400 Diastolic blood pressure 78 mm[Hg] Kristal Garciatrick DIRECTOR OF MUSIC Work Phone: [facility] 11-02-2024 12:05-0400 Heart rate 78 /min Kristal Zelayak DIRECTOR OF MUSIC Work Phone: [facility] 11-02-2024 12:05-0400 Respiratory rate 18 /min Kristal Zelayak DIRECTOR OF MUSIC Work Phone: [facility] 11-02-2024 12:05-0400 SaO2% (BldA) [Mass fraction] 98 % Kristal Zelayak DIRECTOR OF MUSIC Work Phone: [facility] 11-02-2024 12:05-0400 Systolic blood pressure 122 mm[Hg] Kristal Zelayak DIRECTOR OF MUSIC Work Phone: [facility] 10-27-2024 13:06-0400 Body height 182.9 cm Fabián Bishop MD Work Phone: [facility] 10-27-2024 13:06-0400 Body mass index (BMI) [Ratio] 30.24 kg/m2 Fabián Bishop MD Work Phone: [facility] 10-27-2024 13:06-0400 Body weight 101.15 kg Fabián Bishop MD Work Phone: [facility] 10-27-2024 13:06-0400 Diastolic blood pressure 70 mm[Hg] Fabián Bishop MD Work Phone: [facility] 10-27-2024 13:06-0400 Heart rate 55 /min Fabián Bishop MD Work Phone: [facility] 10-27-2024 13:06-0400 Systolic blood pressure 112 mm[Hg] Fabián Bishop MD Work Phone: [facility] 10-15-2024 11:27-0400 Body height 182.9 cm Shabana Costello MD Work Phone: [facility] 10-15-2024 11:27-0400 Body mass index (BMI) [Ratio] 29.19 kg/m2 Shabana Costello MD Work Phone: [facility] 10-15-2024 11:27-0400 Body weight 97.61 kg Shabana Costello MD Work Phone: [facility] 10-15-2024 11:27-0400 Diastolic blood pressure 70 mm[Hg] Shabana Costello MD Work Phone: [facility] 10-15-2024 11:27-0400 Heart rate 96 /min Shabana Costello MD Work Phone: [facility] 10-15-2024 11:27-0400 SaO2% (BldA) [Mass fraction] 97 % Shabana Costello MD Work Phone: [facility] 10-15-2024 11:27-0400 Systolic blood pressure 120 mm[Hg] Shabana Costello MD Work Phone: [facility] 09-14-2024 14:32-0400 Body height 182.9 cm Farrukh Schumacher Work Phone: [facility] 09-14-2024 14:32-0400 Body mass index (BMI) [Ratio] 30.24 kg/m2 Farrukh Lopes PA Work Phone: [facility] 09-14-2024 14:32-0400 Body weight 101.15 kg Farrukh Schumacher Work Phone: [facility] 09-14-2024 14:32-0400 Diastolic blood pressure 67 mm[Hg] Farrukh Fordre PA Work Phone: [email or web address] 09-14-2024 14:32-0400 Heart rate 54 /min Farrukh Fordre PA Work Phone: [facility] [facility] 09-14-2024 14:32-0400 Respiratory rate 18 /min Farrukh Fordre PA Work Phone: [facility] 09-14-2024 14:32-0400 Systolic blood pressure 103 mm[Hg] Farrukh Fordre PA Work Phone: [email or web address] 08-19-2024 12:24-0500 Body height 182.9 cm Jerri Mici PA-C Work Phone: [email or web address] 08-19-2024 12:24-0500 Body mass index (BMI) [Ratio] 32.41 kg/m2 Jerri Mici PA-C Work Phone: [email or web address] 08-19-2024 12:24-0500 Body weight 108.41 kg Jerri Mici PA-C [facility] 08-19-2024 12:24-0500 Diastolic blood pressure 80 mm[Hg] Jerri Mici PA-C [facility]: [facility] 08-19-2024 12:24-0500 Heart rate 64 /min Jerri Mici PA-C Work Phone: [email or web address] 08-19-2024 12:24-0500 SaO2% (BldA) [Mass fraction] 99 % Jerri Mici PA-C [facility]: [facility] 08-19-2024 12:24-0500 Systolic blood pressure 118 mm[Hg] Jerri Mici PA-C Work Phone: [email or web address] 08-13-2024 10:27-0500 Body mass index (BMI) [Ratio] 33.06 kg/m2 [facility] 1 [facility] 08-13-2024 10:27-0500 Body weight 110.59 kg [facility] 1 [facility] 08-13-2024 10:27-0500 Diastolic blood pressure 74 mm[Hg] [facility] 1 [facility] 08-13-2024 10:27-0500 Heart rate 76 /min [facility] 1 [facility] 08-13-2024 10:27-0500 Systolic blood pressure 117 mm[Hg] [facility] 1 [facility] 07-26-2024 13:55-0500 Body height 182.9 cm Corina Sonya [employer] Work Phone: [facility] 07-26-2024 13:55-0500 Body mass index (BMI) [Ratio] 32.16 kg/m2 Corina Sonya [employer] Work Phone: [facility] 07-26-2024 13:55-0500 Body weight 107.59 kg Corina Sonya [employer] Work Phone: [facility] 07-26-2024 13:55-0500 Diastolic blood pressure 58 mm[Hg] Corina Sonya [employer] Work Phone: [facility] 07-26-2024 13:55-0500 Heart rate 53 /min Corina Sonya [employer] Work Phone: [facility] 07-26-2024 13:55-0500 SaO2% (BldA) [Mass fraction] 96 % Corina Sonya [employer] Work Phone: [facility] 07-26-2024 13:55-0500 Systolic blood pressure 122 mm[Hg] Corina Sonya [employer] Work Phone: [facility] 07-26-2024 10:31-0500 Body height 182.9 cm Sunil Hernandez DPM Work Phone: [facility] 07-26-2024 10:31-0500 Body mass index (BMI) [Ratio] 32.14 kg/m2 Sunil AMADORM Work Phone: [facility] 07-26-2024 10:31-0500 Body weight 107.5 kg Sunil Hernandez DPM Work Phone: [facility] 07-20-2024 10:38-0500 Body mass index (BMI) [Ratio] 33.44 kg/m2 [facility] 1 [facility] 07-20-2024 10:38-0500 Body weight 111.86 kg [facility] 1 [facility] 07-20-2024 10:38-0500 Diastolic blood pressure 71 mm[Hg] [facility] 1 [facility] 07-20-2024 10:38-0500 Heart rate 47 /min [facility] 1 [facility] 07-20-2024 10:38-0500 SaO2% (BldA) [Mass fraction] 100 % [facility] 1 [facility] 07-20-2024 10:38-0500 Systolic blood pressure 114 mm[Hg] [facility] 1 [facility] 06-24-2024 13:15-0500 Body mass index (BMI) [Ratio] 32.55 kg/m2 [facility] 1 [facility] 06-24-2024 13:15-0500 Body weight 108.86 kg [facility] 1 [facility] 06-24-2024 13:15-0500 Diastolic blood pressure 71 mm[Hg] [facility] 1 [facility] 06-24-2024 13:15-0500 Heart rate 58 /min [facility] 1 [facility] 06-24-2024 13:15-0500 Systolic blood pressure 136 mm[Hg] [facility] 1 [facility] 06-09-2024 10:26-0500 Body height 182.9 cm Kristal Irizarrypatrick DIRECTOR OF MUSIC Work Phone: [facility] 06-09-2024 10:26-0500 Body mass index (BMI) [Ratio] 31.74 kg/m2 Kristal Johnson DIRECTOR OF MUSIC Work Phone: [facility] 06-09-2024 10:26-0500 Body weight 106.14 kg Kristal Irizarrypatrick DIRECTOR OF MUSIC Work Phone: [facility] 06-09-2024 10:26-0500 Diastolic blood pressure 70 mm[Hg] Kristal Zelayak DIRECTOR OF MUSIC Work Phone: [facility] 06-09-2024 10:26-0500 Heart rate 60 /min Kristal Zelayak DIRECTOR OF MUSIC Work Phone: [facility] 06-09-2024 10:26-0500 Respiratory rate 18 /min Kristal Zelayak DIRECTOR OF MUSIC Work Phone: [facility] 06-09-2024 10:26-0500 SaO2% (BldA) [Mass fraction] 97 % Kristal Zelayak DIRECTOR OF MUSIC Work Phone: [facility] 06-09-2024 10:26-0500 Systolic blood pressure 132 mm[Hg] Kristal Zelayak DIRECTOR OF MUSIC Work Phone: [facility] 05-25-2024 14:57-0500 Body mass index (BMI) [Ratio] 32.41 kg/m2 [facility] 1 [facility] 05-25-2024 14:57-0500 Body weight 108.41 kg P[facility] 1 [facility] 05-25-2024 14:57-0500 Diastolic blood pressure 74 mm[Hg] P[facility] 1 [facility] 05-25-2024 14:57-0500 Heart rate 47 /min [facility] 1 [facility] 05-25-2024 14:57-0500 Systolic blood pressure 114 mm[Hg] Pmh 1 [facility] 05-10-2024 14:14-0500 Body height 182.9 cm Corina Hassan [employer] Work Phone: [facility] 05-10-2024 14:14-0500 Body mass index (BMI) [Ratio] 33.25 kg/m2 Corina Hassan [employer] Work Phone: [facility] 05-10-2024 14:14-0500 Body weight 111.22 kg Corina Hassan [employer] Work Phone: [facility] 05-10-2024 14:14-0500 Diastolic blood pressure 80 mm[Hg] Corina Hassan [employer] Work Phone: [facility] [employer] [facility] 05-10-2024 14:14-0500 Heart rate 55 /min Corina Hassan [employer] Work Phone: [facility] 05-10-2024 14:14-0500 SaO2% (BldA) [Mass fraction] 97 % Corina Hassan [employer] Work Phone: [facility] 05-10-2024 14:14-0500 Systolic blood pressure 132 mm[Hg] Corina Hassan [employer] Work Phone: [facility] [employer] [facility] 05-06-2024 11:29-0500 Body height 182.9 cm Christian Nino MD Work Phone: [facility] 05-06-2024 11:29-0500 Body mass index (BMI) [Ratio] 34.12 kg/m2 Christian Nino MD Work Phone: [facility] [employer] [facility] 05-06-2024 11:29-0500 Body weight 114.13 kg Christian Nino MD Work Phone: [facility] [employer] [facility] 05-06-2024 11:29-0500 Diastolic blood pressure 84 mm[Hg] Christian Nino MD Work Phone: [facility] [employer] [facility] 05-06-2024 11:29-0500 Heart rate 62 /min Christian Nino MD Work Phone: [facility] 05-06-2024 11:29-0500 SaO2% (BldA) [Mass fraction] 91 % Christian Nino MD Work Phone: [facility] [employer] [facility] 05-06-2024 11:29-0500 Systolic blood pressure 118 mm[Hg] Christian Nino MD Work Phone: [facility] 04-19-2024 15:00-0400 Body mass index (BMI) [Ratio] 31.74 kg/m2 [facility] 1 [facility] [employer] [facility] 04-19-2024 15:00-0400 Body weight 106.14 kg Pmh 1 [facility] 04-19-2024 15:00-0400 Diastolic blood pressure 70 mm[Hg] Pmh 1 [facility] 04-19-2024 15:00-0400 Heart rate 50 /min [facility] 1 [facility] 04-19-2024 15:00-0400 Systolic blood pressure 129 mm[Hg] Pmh 1 [facility] 04-13-2024 11:32-0400 Body mass index (BMI) [Ratio] 30.98 kg/m2 Kristal Hubbardzpatrick DIRECTOR OF MUSIC Work Phone: [facility] 04-13-2024 11:32-0400 Body temperature 97.39 [degF] Kristal Irizarrypatrick DIRECTOR OF MUSIC Work Phone: [facility] 04-13-2024 11:32-0400 Body weight 103.6 kg Kristal Irizarrypatrick DIRECTOR OF MUSIC Work Phone: [facility] 04-13-2024 11:32-0400 Diastolic blood pressure 72 mm[Hg] Kristal Irizarrypatrick DIRECTOR OF MUSIC Work Phone: [facility] 04-13-2024 11:32-0400 Systolic blood pressure 128 mm[Hg] Kristal Hubbardzpatrick DIRECTOR OF MUSIC Work Phone: [facility] 04-05-2024 15:31-0400 Body mass index (BMI) [Ratio] 31.44 kg/m2 [facility] 1 [facility] 04-05-2024 15:31-0400 Body weight 105.14 kg P[facility] 1 [facility] 04-05-2024 15:31-0400 Diastolic blood pressure 67 mm[Hg] [facility] 1 [facility] 04-05-2024 15:31-0400 Heart rate 62 /min [facility] 1 [facility] 04-05-2024 15:31-0400 SaO2% (BldA) [Mass fraction] 96 % [facility] 1 [facility] 04-05-2024 15:31-0400 Systolic blood pressure 122 mm[Hg] [facility] 1 [facility] 03-25-2024 10:11-0400 Body height 182.9 cm Sunil Hernandez DPM Work Phone: [facility] 03-25-2024 10:11-0400 Body mass index (BMI) [Ratio] 31.6 kg/m2 Sunil Hernandez DPM Work Phone: [facility] 03-25-2024 10:11-0400 Body weight 105.69 kg Sunil Hernandez DPM Work Phone: [facility] 03-23-2024 13:30-0400 Body mass index (BMI) [Ratio] 31.74 kg/m2 [facility] 1 [facility] 03-23-2024 13:30-0400 Body weight 106.14 kg Pm 1 [facility] 03-23-2024 13:30-0400 Diastolic blood pressure 64 mm[Hg] Pmh 1 [facility] 03-23-2024 13:30-0400 Heart rate 57 /min [facility] 1 [facility] 03-23-2024 13:30-0400 Systolic blood pressure 123 mm[Hg] Pmh 1 [facility] 03-16-2024 15:29-0400 Body height 182.9 cm Arash Drake MD Work Phone: [facility] 03-16-2024 15:29-0400 Body mass index (BMI) [Ratio] 31.6 kg/m2 Arash Drake MD Work Phone: [facility] 03-16-2024 15:29-0400 Body weight 105.69 kg Arash Drake MD Work Phone: [facility] 03-16-2024 15:29-0400 Diastolic blood pressure 90 mm[Hg] Arash Drake MD Work Phone: [facility] 03-16-2024 15:29-0400 Heart rate 49 /min Arash Drake MD Work Phone: [facility] 03-16-2024 15:29-0400 Systolic blood pressure 135 mm[Hg] Arash Drake MD Work Phone: [facility] 02-02-2024 09:12-0400 Body height 182.9 cm Timothy Kang MD Work Phone: [facility] 02-02-2024 09:12-0400 Body mass index (BMI) [Ratio] 31.87 kg/m2 Timothy Kang MD Work Phone: [facility] 02-02-2024 09:12-0400 Body weight 106.59 kg Timothy Kang MD Work Phone: [facility] 02-02-2024 09:12-0400 Diastolic blood pressure 68 mm[Hg] Timothy Kang MD Work Phone: [facility] 02-02-2024 09:12-0400 Heart rate 69 /min Timothy Kang MD Work Phone: [facility] 02-02-2024 09:12-0400 SaO2% (BldA) [Mass fraction] 96 % Timothy Kang MD Work Phone: [facility] 02-02-2024 09:12-0400 Systolic blood pressure 130 mm[Hg] Timothy Kang MD Work Phone: [facility] 12-10-2023 13:42-0400 Body height 182.9 cm Fabián Bishop MD Work Phone: [facility] 12-10-2023 13:42-0400 Body mass index (BMI) [Ratio] 37.3 kg/m2 Fabián Bishop MD Work Phone: [facility] 12-10-2023 13:42-0400 Body weight 124.74 kg Fabián Bishop MD Work Phone: [facility] 12-10-2023 13:42-0400 Diastolic blood pressure 77 mm[Hg] Fabián Bishop MD Work Phone: [facility] 12-10-2023 13:42-0400 Heart rate 99 /min Fabián Bishop MD Work Phone: [facility] [employer] [facility] 12-10-2023 13:42-0400 Systolic blood pressure 133 mm[Hg] Fabián Bishop MD Work Phone: [facility] 11-21-2023 09:54-0400 Body temperature 97.81 [degF] Savannah Sanchez [employer] Work Phone: [facility] [employer] [facility] 11-21-2023 09:54-0400 Diastolic blood pressure 60 mm[Hg] Savannah Sanchez [employer] Work Phone: [facility] [employer] [facility] 11-21-2023 09:54-0400 Heart rate 88 /min Savannah Sanchez [employer] Work Phone: [facility] [employer] [facility] 11-21-2023 09:54-0400 Systolic blood pressure 120 mm[Hg] Savannah Sanchez [employer] Work Phone: [facility] 11-12-2023 15:59-0400 Body height 182.9 cm Nitish DONALD Work Phone: [facility] [employer] [facility] 11-12-2023 15:59-0400 Body mass index (BMI) [Ratio] 37.3 kg/m2 Nitish DONALD Work Phone: [facility] 11-12-2023 15:59-0400 Body weight 124.74 kg Nitish DONALD Work Phone: [facility] [employer] [facility] 11-12-2023 15:59-0400 Diastolic blood pressure 72 mm[Hg] Nitish DONALD Work Phone: [facility] [employer] [facility] 11-12-2023 15:59-0400 Heart rate 67 /min Nitish DONALD Work Phone: [facility] [employer] [facility] 11-12-2023 15:59-0400 Systolic blood pressure 149 mm[Hg] Nitish DONALD Work Phone: [facility] [employer] [facility] 11-12-2023 10:07-0400 Body temperature 97.3 [degF] Savannah Laura [employer] Work Phone: [facility] 11-12-2023 10:07-0400 Diastolic blood pressure 83 mm[Hg] Savannah Sanchez [employer] Work Phone: [facility] 11-12-2023 10:07-0400 Respiratory rate 16 /min Savannah Sanchez [employer] Work Phone: [facility] 11-12-2023 10:07-0400 Systolic blood pressure 144 mm[Hg] Savannah Sanchez [employer] Work Phone: [facility] 11-07-2023 08:41-0400 Body mass index (BMI) [Ratio] 37.42 kg/m2 Savannah Sanchez [employer] Work Phone: [facility] 11-07-2023 08:41-0400 Body temperature 97.7 [degF] Savannah Sanchez [employer] Work Phone: [facility] 11-07-2023 08:41-0400 Body weight 125.15 kg Savannah Sanchez [employer] Work Phone: [facility] 11-07-2023 08:41-0400 Diastolic blood pressure 77 mm[Hg] Savannah Sanchez [employer] Work Phone: [facility] 11-07-2023 08:41-0400 Heart rate 74 /min Savannah Sanchez [employer] Work Phone: [facility] 11-07-2023 08:41-0400 Respiratory rate 16 /min Savannah Sanchez [employer] Work Phone: [facility] 11-07-2023 08:41-0400 Systolic blood pressure 120 mm[Hg] Savannah Sanchez [employer] Work Phone: [facility] 10-08-2023 13:23-0400 Body height 182.9 cm Fabáin Bishop MD Work Phone: [facility] 10-08-2023 13:23-0400 Body mass index (BMI) [Ratio] 35.26 kg/m2 Fabián Bishop MD Work Phone: [facility] 10-08-2023 13:23-0400 Body weight 117.94 kg Fabián Bishop MD Work Phone: [facility] 10-08-2023 13:23-0400 Diastolic blood pressure 7 mm[Hg] Fabián Bishop MD Work Phone: [facility] 10-08-2023 13:23-0400 Heart rate 66 /min Fabián Bishop MD Work Phone: [facility] 10-08-2023 13:23-0400 Systolic blood pressure 145 mm[Hg] Fabián Bishop MD Work Phone: [facility] 08-13-2023 09:51-0500 Body height 182.9 cm [facility] 1 [facility] 08-13-2023 09:51-0500 Body mass index (BMI) [Ratio] 35.26 kg/m2 [facility] 1 [facility] 08-13-2023 09:51-0500 Body weight 117.94 kg P[facility] 1 [facility] 07-29-2023 13:36-0500 Body height 182.9 cm Timothy Kang MD Work Phone: [facility] 07-29-2023 13:36-0500 Body mass index (BMI) [Ratio] 35.26 kg/m2 Timothy Kang MD Work Phone: [facility] 07-29-2023 13:36-0500 Body weight 117.94 kg Timothy Kang MD Work Phone: [facility] 07-29-2023 13:36-0500 Diastolic blood pressure 66 mm[Hg] Timothy Knag MD Work Phone: [facility] 07-29-2023 13:36-0500 Heart rate 61 /min Timothy Kang MD Work Phone: [facility] 07-29-2023 13:36-0500 SaO2% (BldA) [Mass fraction] 95 % Timothy Kang MD Work Phone: [facility] 07-29-2023 13:36-0500 Systolic blood pressure 124 mm[Hg] Timothy Kang MD Work Phone: [facility] 07-28-2023 10:21-0500 Body height 182.9 cm Sunilshiva Hernandez DPM Work Phone: [facility] 07-28-2023 10:21-0500 Body mass index (BMI) [Ratio] 35.4 kg/m2 Sunilshiva Hernandez DPM Work Phone: [facility] 07-28-2023 10:21-050 Body weight 118.39 kg Sunil Hernandez DPM Work Phone: [facility] Healthcare Encounters Encounter Date Encounter Type Care Provider Facility Start: 12-10-2024 End: 12-10-2024 Telephone encounter [facility] Work Phone: [facility] Med[facility] Start: 11-22-2024 End: 11-22-2024 ambulatory [facility] Start: 11-10-2024 End: 11-10-2024 [facility] Comment on above: Consult (Peg placeme nt) Start: 11-10-2024 End: 11-10-2024 ambulatory TERRENCE [facility] Start: 11-09-2024 End: 11-20-2024 Evaluation and management of inpatient [facility] Start: 11-09-2024 End: 11-09-2024 Telephone encounter [facility] Comment on above: heart rate Start: 11-08-2024 End: 11-08-2024 ambulatory [facility] Start: 11-06-2024 End: 11-06-2024 Telephone encounter Niki dickens Comment on above: Consult (Osteo of ada mbar spine) Start: 11-06-2024 End: 11-09-2024 Evaluation and management of inpatient RICHMOND SALDIVAR [facility] Start: 11-05-2024 End: 11-06-2024 Evaluation and management of inpatient SHABANA COSTELLO [facility] Start: 11-04-2024 End: 11-04-2024 Follow-up encounter [facility] Med[facility] Work Phone: [facility] Medication Management Comment on above: Cerebrovascular dise ase (Primary Dx); Athscl heart disease of [place] coronary artery w/o ang pctrs; Paroxysmal atrial fibrillation ([facility]); detention (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 Start: 11-02-2024 End: 11-02-2024 [employer] Kristal Johnson DIRECTOR OF MUSIC Work Phone: [facility] Start: 11-02-2024 End: 11-02-2024 [employer] Datamarisa Johnson DIRECTOR OF MUSIC Work Phone: [facility] Start: 11-02-2024 End: 11-02-2024 ambulatory KRISTAL JOHNSON Not Available Start: 11-02-2024 End: 11-02-2024 Office outpatient visit 25 minutes Kristal Johnson DIRECTOR OF MUSIC Work Phone: [facility] Comment on above: Acute left otitis me jeanine (Primary Dx); Bronchitis Start: 10-28-2024 End: 10-28-2024 Follow-up encounter [facility] Med[facility] Work Phone: [facility] Medication Management Comment on above: Cerebrovascular dise ase (Primary Dx); Athscl heart disease of [place] coronary artery w/o ang pctrs; Paroxysmal atrial fibrillation ([facility]); 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 Start: 10-28-2024 End: 10-28-2024 Telephone encounter Stella Glass CMA [facility] Rheumatology, A Department of [facility] Start: 10-27-2024 End: 10-27-2024 Telephone encounter Fabián Bishop MD Work Phone: [facility] Start: 10-27-2024 End: 10-27-2024 Office outpatient visit 25 minutes Fabáin Bishop MD Work Phone: [facility] Comment on above: Malignant neoplasm o f overlapping sites of bladder (CMS-HCC) (Primary Dx); Elevated PSA Start: 10-27-2024 End: 10-27-2024 ambulatory FABIÁN BISHOP [facility] Start: 10-26-2024 End: 10-26-2024 Refill Kelin Quigleyyolanda [employer] Work Phone: [facility] Comment on above: Med Refill Start: 10-22-2024 End: 10-22-2024 Follow-up encounter [facility] Work Phone: [facility] Medication Management Comment on above: Cerebrovascular dise ase (Primary Dx); Athscl heart disease of [place] coronary artery w/o ang pctrs; Paroxysmal atrial fibrillation ([facility]); detention (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 Start: 10-15-2024 End: 10-15-2024 BamPeekapakmarisa Costello MD Work Phone: [facility] Start: 10-15-2024 End: 10-15-2024 Gisle Angiologixmarisa Costello MD Work Phone: [facility] Start: 10-15-2024 End: 10-15-2024 ambulatory SHABANA COSTELLO Not Available Start: 10-15-2024 End: 10-15-2024 Office outpatient visit 25 minutes Shabana Costello MD Work Phone: [facility] Comment on above: Pleural effusion, bi lateral (Primary Dx); Anemia, unspecified type; Type 2 diabetes mellitus with diabetic neuropathy, with long-term current use of insulin (CMS/HCC); Multiple closed fractures of ribs of both sides with routine healing, subsequent encounter; Paroxysmal atrial fibrillation (CMS/HCC); Pressure injury of left buttock, stage 1; Malignant neoplasm of bladder, unspecified; Type 2 diabetes mellitus with diabetic chronic kidney disease (CMS/[facility]); Chronic kidney disease, stage 3a (HCC) ([facility]) Start: 10-15-2024 End: 10-15-2024 ambulatory SHABANA COSTELLO Not Available Start: 10-14-2024 End: 10-14-2024 Follow-up encounter [facility] Work Phone: [facility] - Pharmacy Medication Management Comment on above: Cerebrovascular dise ase (Primary Dx); Athscl heart disease of [place] coronary artery w/o ang pctrs; Paroxysmal atrial fibrillation ([facility]); detention (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 Start: 10-12-2024 End: 10-12-2024 Follow-up encounter [facility] Work Phone: [facility] - Pharmacy Medication Management Comment on above: Cerebrovascular dise ase (Primary Dx); Athscl heart disease of [place] coronary artery w/o ang pctrs; Paroxysmal atrial fibrillation ([facility]); 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 Start: 10-07-2024 End: 10-07-2024 Telephone encounter [facility] Medication [facility] Work Phone: [facility] - Pharmacy Medication Management Start: 10-06-2024 End: 10-06-2024 Follow-up encounter [facility]ication [facility] Work Phone: [facility] Medication Management Comment on above: Cerebrovascular dise ase (Primary Dx); Athscl heart disease of [place] coronary artery w/o ang pctrs; Paroxysmal atrial fibrillation ([facility]); detention (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 Start: 10-04-2024 End: 10-04-2024 Telephone encounter Shabana Costello MD Work Phone: [facility] Start: 09-14-2024 End: 09-14-2024 ambulatory QUYEN SEAY [facility] Start: 09-14-2024 End: 09-14-2024 Office outpatient visit 15 minutes Frarukh Schumacher Work Phone: [facility] Physicians General Surgery-Trauma Comment on above: Closed fracture of m ultiple ribs of right side with routine healing, subsequent encounter (Primary Dx) Start: 09-07-2024 End: 09-07-2024 Follow-up encounter Dulce Sommer [facility] Work Phone: [facility] - Pharmacy Medication Management Comment on above: Cerebrovascular dise ase (Primary Dx); Athscl heart disease of [place] coronary artery w/o ang pctrs; Paroxysmal atrial fibrillation ([facility]); 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 Start: 09-07-2024 End: 09-07-2024 ambulatory ISAK JONES [facility] Start: 08-29-2024 End: 08-29-2024 Telephone encounter Rita Miky [facility] Call Mili dickens Comment on above: Advice Only (Hemotho rax ) Start: 08-24-2024 End: 09-06-2024 Evaluation and management of inpatient [facility] Start: 08-24-2024 End: 08-24-2024 Emergency department patient visit SHABANA Hector [facility] Start: 08-20-2024 End: 08-20-2024 ambulatory [facility] Start: 08-19-2024 End: 08-19-2024 Follow-up encounter Maurice Black MD Work Phone: [facility] - Pharmacy Medication Management Comment on above: Cerebrovascular dise ase (Primary Dx); Coronary artery disease involving [place] coronary artery of [place] heart without angina pectoris; Paroxysmal atrial fibrillation ([facility]); detention (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 Start: 08-19-2024 End: 08-19-2024 Office outpatient visit 15 minutes eJrri Brunner PA-C Work Phone: [facility] Cardiology Comment on above: Paroxysmal atrial fi brillation ([facility]) (Primary Dx); Coronary artery disease involving [place] coronary artery of [place] heart without angina pectoris; Presence of coronary angioplasty implant and graft; Primary hypertension; Chronic combined systolic and diastolic congestive heart failure ([facility]); Venous insufficiency (chronic) (peripheral) Start: 08-19-2024 End: 08-19-[address] [facility]ICATION [facility]NAG[facility] Start: 08-18-2024 End: 08-18-2024 Telephone encounter Shabana Curry [facility] Physician s Cardiology Start: 08-16-2024 End: 08-20-2024 Telephone encounter Fabián Bishop MD Work Phone: [facility] Genito-Urinary Surgeons Comment on above: Gastric ulcer, unspe cified chronicity, unspecified whether gastric ulcer hemorrhage or perforation present Start: 08-16-2024 End: 08-16-2024 Evaluation and management of inpatient FABIÁN BISHOP [facility] Start: 08-13-2024 End: 08-13-2024 ambulatory [facility] Phone Call Provider 1 [facility] - Pre Admit Start: 08-13-2024 End: 08-13-2024 Clinical Support Maurice Black MD Work Phone: [facility] - Pharmacy Medication Management Comment on above: 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 ([facility]); HFrEF (heart failure with reduced ejection fraction) ([facility]) Start: 08-06-2024 End: 08-06-2024 Follow-up encounter Maurice Black MD Work Phone: [facility] - Pharmacy Medication Management Comment on above: Cerebrovascular dise ase (Primary Dx); Coronary artery disease involving [place] coronary artery of [place] heart without angina pectoris; Paroxysmal atrial fibrillation (CMS-HCC); detention (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; Chronic combined systolic and diastolic congestive heart failure ([facility]) Start: 08-06-2024 End: 08-06-[address] [facility] MEDICATION [facility]NAG[facility] Start: 08-03-2024 End: 08-16-2024 Refill Timothy Kang MD Work Phone: [facility] Cardiology Comment on above: Med Refill Start: 07-28-2024 End: 07-28-2024 Telephone encounter Evelyn Steward [facility] Work Phone: [facility] - Pharmacy Medication Management Start: 07-26-2024 End: 07-26-2024 Office outpatient visit 25 minutes Corina Joaquin Hassan [employer] Work Phone: [facility] - Heart Failure Clinic Comment on above: 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 ([facility]) (Primary Dx); Coronary artery disease involving [place] coronary artery of [place] heart without angina pectoris; Paroxysmal atrial fibrillation ([facility]) Start: 07-26-2024 End: 07-26-2024 Bamboo flowsheet Sunil Hernandez DPM Work Phone: [facility] Start: 07-26-2024 End: 07-26-2024 Bamboo flowsheet Sunil Hernandez DPM Work Phone: [facility] Start: 07-26-2024 End: 07-26-[address] [facility] MEDICATION [facility] Start: 07-26-2024 End: 07-26-2024 Patient encounter procedure Sunil Hernandez DPM Work Phone: [facility] Comment on above: Dermatophytosis of n ail (Primary Dx); Type II diabetes mellitus with peripheral circulatory disorder ([facility]); Type II diabetes mellitus with neurological manifestations ([facility]); Peripheral venous insufficiency Start: 07-26-2024 End: 07-26-2024 ambulatory SUNIL HERNANDEZ Not Available Start: 07-22-2024 End: 07-22-2024 Telephone encounter [employer] Work Phone: [facility] Med[facility] Start: 07-20-2024 End: 07-20-2024 Clinical Support Maurice Black MD Work Phone: [facility] Medication Therapy Management Comment on above: HFrEF (heart failure with reduced ejection fraction) ([facility]) (Primary Dx) Start: 07-08-2024 End: 07-08-[address] [facility] MEDICATION [facility]NAG[facility] Start: 07-08-2024 End: 07-08-2024 Follow-up encounter Maurice Black MD Work Phone: [facility] Medication Therapy Management Comment on above: Cerebrovascular dise ase (Primary Dx); Coronary artery disease involving [place] coronary artery of [place] heart without angina pectoris; Paroxysmal atrial fibrillation ([facility]); detention (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; Congestive heart failure, unspecified HF chronicity, unspecified heart failure type ([facility]) Start: 07-01-2024 End: 07-01-2024 Telephone encounter Shefali Blankenship MA [facility] Medication Therapy Management Start: 06-29-2024 End: 06-29-2024 Orders Only Kristal Johnson DIRECTOR OF MUSIC Work Phone: [facility] Comment on above: Gastric ulcer, unspe cified chronicity, unspecified whether gastric ulcer hemorrhage or perforation present Start: 06-28-2024 End: 06-29-2024 Refill Kristal Johnson DIRECTOR OF MUSIC Work Phone: [facility] Comment on above: Gastric ulcer, unspe cified chronicity, unspecified whether gastric ulcer hemorrhage or perforation present Start: 06-24-2024 End: 06-24-2024 Clinical Support Maurice Black MD Work Phone: [facility] Medication Therapy Management Comment on above: 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 ([facility]); HFrEF (heart failure with reduced ejection fraction) ([facility]); Coronary artery disease involving [place] coronary artery of [place] heart without angina pectoris; Paroxysmal atrial fibrillation ([facility]) Start: 06-22-2024 End: 06-24-2024 Telephone encounter [employer] Work Phone: [facility] Medication Therapy Management Start: 06-21-2024 End: 06-21-2024 ambulatory [facility] Start: 06-14-2024 End: 06-14-2024 Orders Only Edith TINSLEY Work Phone: [facility] Surgeons Start: 06-11-2024 End: 06-11-2024 Telephone encounter Shefali Blankenship MA [facility] Medication Therapy Management Start: 06-10-2024 End: 06-10-2024 ambulatory [facility] Start: 06-09-2024 End: 06-09-2024 Bamboo flowsheet Kristal Johnson DIRECTOR OF MUSIC Work Phone: [facility] Start: 06-09-2024 End: 06-09-2024 Bamboo flowsheet Kristal Johnson DIRECTOR OF MUSIC Work Phone: [facility] Start: 06-09-2024 End: 06-09-2024 ambulatory [facility] Start: 06-09-2024 End: 06-09-2024 Office outpatient visit 25 minutes Kristal Johnson DIRECTOR OF MUSIC Work Phone: [facility] Comment on above: Type 2 diabetes pratibha itus without complication, without long- term current use of insulin ([facility]) (Primary Dx); Type 2 diabetes mellitus with diabetic neuropathy, with long-term current use of insulin ([facility]); LOUISA (acute kidney injury) ([facility]); Chronic kidney disease, unspecified CKD stage Start: 06-09-2024 End: 06-09-2024 ambulatory KRISTAL JOHNSON Not Available Start: 05-26-2024 End: 05-27-2024 Telephone encounter [employer] Work Phone: [facility] Medication Therapy Management Start: 05-25-2024 End: 05-25-2024 Clinical Support Maurice Black MD Work Phone: [facility] Medication Therapy Management Comment on above: 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 ([facility]); HFrEF (heart failure with reduced ejection fraction) ([facility]); Coronary artery disease involving [place] coronary artery of [place] heart without angina pectoris; Paroxysmal atrial fibrillation ([facility]) Start: 05-24-2024 End: 05-24-2024 ambulatory SHABANA COSTELLO [facility] Start: 05-21-2024 End: 05-24-2024 Refill Mayela Angeles NP Work Phone: [facility] Comment on above: Gastric ulcer, unspe cified chronicity, unspecified whether gastric ulcer hemorrhage or perforation present Start: 05-17-2024 End: 05-17-2024 Telephone encounter Niki Guzman RN [facility] Heart Failure Clinic Start: 05-17-2024 End: 05-17-2024 Follow-up encounter Maurice Black MD Work Phone: [facility] Medication Therapy Management Comment on above: Cerebrovascular dise ase (Primary Dx); Coronary artery disease involving [place] coronary artery of [place] heart without angina pectoris; Paroxysmal atrial fibrillation ([facility]); detention (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 ([facility]) (Primary Dx) Start: 05-17-2024 End: 05-17-2024 [facility] Start: 05-10-2024 End: 05-10-2024 Office outpatient visit 25 minutes Corina Hassan [employer] Work Phone: [facility] Heart Failure Clinic Comment on above: 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 ([facility]) (Primary Dx); Coronary artery disease involving [place] coronary artery of [place] heart without angina pectoris; Paroxysmal atrial fibrillation ([facility]) Start: 05-10-2024 End: 05-10-2024 ambulatory [facility] Joaquin [facility] Start: 05-06-2024 End: 05-06-2024 [facility] Start: 05-06-2024 End: 05-06-2024 Office outpatient visit 25 minutes Christian Nino MD Work Phone: [facility] Physicians Cardiology Comment on above: Coronary artery dise ase involving [place] coronary artery of [place] heart without angina pectoris (Primary Dx); 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); Paroxysmal atrial fibrillation (CMS-HCC); Essential hypertension; Dyslipidemia; Mild mitral regurgitation Start: 05-06-2024 End: 05-06-2024 [facility] Start: 05-06-2024 End: 05-06-2024 Follow-up encounter Maurice Black MD Work Phone: [facility] Medication Therapy Management Comment on above: Cerebrovascular dise ase (Primary Dx); Coronary artery disease involving [place] coronary artery of [place] heart without angina pectoris; Paroxysmal atrial fibrillation (CMS-HCC); detention (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 Start: 05-05-2024 End: 05-05-2024 Telephone encounter Shabana Curry CMA [facility] Physician s Cardiology Start: 04-28-2024 End: 04-28-2024 Follow-up encounter [employer] Work Phone: [facility] Medication Therapy Management Comment on above: Cerebrovascular dise ase (Primary Dx); Coronary artery disease involving [place] coronary artery of [place] heart without angina pectoris; Paroxysmal atrial fibrillation ([facility]); 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 Start: 04-28-2024 End: 04-29-2024 Refill Mayela Angeles NP Work Phone: [facility] Comment on above: Gastric ulcer, unspe cified chronicity, unspecified whether gastric ulcer hemorrhage or perforation present Med Refill Start: 04-28-2024 End: 04-28-2024 Telephone encounter [employer] Work Phone: [facility] [employer] Medication Therapy Management Start: 04-21-2024 End: 04-21-2024 Follow-up encounter [employer] Work Phone: [facility] Medication Therapy Management Comment on above: Cerebrovascular dise ase (Primary Dx); Coronary artery disease involving [place] coronary artery of [place] heart without angina pectoris; Paroxysmal atrial fibrillation ([facility]); 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 Start: 04-19-2024 End: 04-19-2024 Clinical Support Maurice Black MD Work Phone: [facility] Medication Therapy Management Comment on above: HFrEF (heart failure with reduced ejection fraction) ([facility]); Chronic combined systolic and diastolic congestive heart failure ([facility]); Coronary artery disease involving [place] coronary artery of [place] heart without angina pectoris; Paroxysmal atrial fibrillation ([facility]) Start: 04-16-2024 End: 04-16-2024 Follow-up encounter Maurice Black MD Work Phone: [facility] Medication Therapy Management Comment on above: Cerebrovascular dise ase (Primary Dx); Coronary artery disease involving [place] coronary artery of [place] heart without angina pectoris; Paroxysmal atrial fibrillation ([facility]); detention (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 Start: 04-16-2024 End: 04-16-2024 [facility] Start: 04-15-2024 End: 04-15-2024 Telephone encounter Shabana Costello MD Work Phone: [facility] Start: 04-13-2024 End: 04-13-2024 Gisel Johnson DIRECTOR OF MUSIC Work Phone: [facility] Start: 04-13-2024 End: 04-13-2024 Bamboo flowsheet Kristal Johnson DIRECTOR OF MUSIC Work Phone: [facility] Start: 04-13-2024 End: 04-13-2024 [facility] Start: 04-13-2024 End: 04-13-2024 Office outpatient visit 25 minutes Kristal Johnson NP Work Phone: [facility] Comment on above: Anemia, unspecified type (Primary Dx); Type 2 diabetes mellitus with diabetic neuropathy, with long-term current use of insulin ([facility]); Paroxysmal atrial fibrillation ([facility]); Chronic kidney disease, stage 3b (HCC) ([facility]) Start: 04-13-2024 End: 04-13-2024 ambulatory KRISTAL HUBBARDZPATRICK Not Available Start: 04-09-2024 End: 04-09-2024 ambulatory [employer] [facility] Start: 04-09-2024 End: 04-09-2024 Follow-up encounter Maurice Black MD Work Phone: [facility] Medication Therapy Management Comment on above: Cerebrovascular dise ase (Primary Dx); Coronary artery disease involving [place] coronary artery of [place] heart without angina pectoris; Paroxysmal atrial fibrillation ([facility]); detention (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 Start: 04-07-2024 End: 04-07-2024 Telephone encounter Shefali Blankenship MA [facility] Medication Therapy Management Start: 04-05-2024 End: 04-05-2024 Clinical Support [facility] 1 [facility] Medication Therapy Management Comment on above: 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 ([facility]) (Primary Dx); HFrEF (heart failure with reduced ejection fraction) ([facility]); Coronary artery disease involving [place] coronary artery of [place] heart without angina pectoris; Paroxysmal atrial fibrillation ([facility]) Start: 04-02-2024 End: 04-02-2024 Refill Shabana Costello MD Work Phone: [facility] Comment on above: Acute cough Start: 04-01-2024 End: 04-01-2024 ambulatory [employer] [facility] Start: 04-01-2024 End: 04-01-2024 Telephone encounter [employer] Work Phone: [facility] Medication Therapy Management Start: 03-31-2024 End: 03-31-2024 Follow-up encounter [employer] Work Phone: [facility] Medication Therapy Management Comment on above: Cerebrovascular dise ase (Primary Dx); Coronary artery disease involving [place] coronary artery of [place] heart without angina pectoris; Paroxysmal atrial fibrillation ([facility]); 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 Start: 03-25-2024 End: 03-25-2024 Bamboo flowsheet Sunil Hernandez DPM Work Phone: [facility] Start: 03-25-2024 End: 03-25-2024 Bamboo flowsheet Sunil Hernandez DPM Work Phone: [facility] Start: 03-25-2024 End: 03-25-2024 Patient encounter procedure Sunil Hernandez DPM Work Phone: [facility] Comment on above: Dermatophytosis of n ail (Primary Dx); Type II diabetes mellitus with peripheral circulatory disorder ([facility]); Type II diabetes mellitus with neurological manifestations ([facility]); Peripheral venous insufficiency Start: 03-25-2024 End: 03-25-2024 ambulatory SUNIL HERNANDEZ Not Available Start: 03-24-2024 End: 03-24-2024 Follow-up encounter [employer] Work Phone: [facility] Medication Therapy Management Comment on above: Cerebrovascular dise ase (Primary Dx); Coronary artery disease involving [place] coronary artery of [place] heart without angina pectoris; Paroxysmal atrial fibrillation ([facility]); 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 Start: 03-23-2024 End: 03-23-2024 Clinical Support [facility] [place] [facility] Medication Therapy Management Comment on above: Congestive heart beth lure, unspecified HF chronicity, unspecified heart failure type ([facility]) (Primary Dx) Start: 03-22-2024 End: 03-22-2024 Telephone encounter Antonia Felix [facility]icians [facility] Start: 03-19-2024 End: 03-19-2024 Telephone encounter [employer] Work Phone: [facility] Medication Therapy Management Start: 03-18-2024 End: 03-18-2024 Follow-up encounter [employer] Work Phone: [facility] Medication Therapy Management Comment on above: Cerebrovascular dise ase (Primary Dx); Coronary artery disease involving [place] coronary artery of [place] heart without angina pectoris; Paroxysmal atrial fibrillation ([facility]); detention (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 Start: 03-17-2024 End: 03-17-2024 ambulatory [facility] [facility] Start: 03-16-2024 End: 03-16-2024 Office outpatient visit 15 minutes Arash Drake MD Work Phone: [facility] Genito-Urinary Surgeons Comment on above: Urinary incontinence , unspecified type (Primary Dx) Start: 03-16-2024 End: 03-16-2024 ambulatory [facility] DAYANA [facility] Start: 03-15-2024 End: 03-15-2024 Office outpatient visit 25 minutes Jr. Camron Palma DO Work Phone: [facility] Comment on above: History of bilateral knee replacement (Primary Dx); Acute pain of left knee; Acute pain of right knee Start: 03-15-2024 End: 03-15-2024 ambulatory CAMRON EASON Not Available Start: 03-15-2024 End: 03-15-2024 Bamboodell Angiologixmarisa Palma DO Work Phone: [facility] Start: 03-15-2024 End: 03-15-2024 Bamboo Angiologixmarisa Palma DO Work Phone: [facility] Start: 03-11-2024 End: 03-11-2024 Follow-up encounter [employer] Work Phone: [facility] [employer] Medication Therapy Management Comment on above: Cerebrovascular dise ase (Primary Dx); Coronary artery disease involving [place] coronary artery of [place] heart without angina pectoris; [facility]oxysmal atrial fibrillation [facility] detention (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 Start: 03-08-2024 End: 03-08-2024 Telephone encounter [employer] Work Phone: [facility] [employer] [facility] Start: 03-06-2024 End: 03-06-2024 Evaluation and management of inpatient NABIL Sanchez [facility] Start: 03-05-2024 End: 03-06-2024 Evaluation and management of inpatient [facility] Start: 03-05-2024 End: 03-05-2024 Evaluation and management of inpatient [facility] Start: 03-01-2024 End: 03-01-2024 ambulatory CORINA HASSAN [facility] Start: 02-29-2024 End: 03-02-2024 Refill Shabana Costello MD Work Phone: [facility] Comment on above: Acute cough (Primary Dx) Start: 02-26-2024 End: 02-26-2024 ambulatory [facility] Pat Phone Call Provider 1 [facility] - Pre Admit Start: 02-26-2024 End: 02-26-2024 Follow-up encounter [employer] Work Phone: [facility] [employer] Med[facility] Therapy Management Comment on above: Cerebrovascular dise ase (Primary Dx); Coronary artery disease involving [place] coronary artery of [place] heart without angina pectoris; Paroxysmal atrial fibrillation ([facility]); 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 Start: 02-26-2024 End: 02-26-2024 ambulatory SHABANA COSTELLO [facility] Start: 02-19-2024 End: 02-19-2024 Follow-up encounter [employer] Work Phone: [facility] [employer] Med[facility] Therapy Management Comment on above: Cerebrovascular dise ase (Primary Dx); Coronary artery disease involving [place] coronary artery of [place] heart without angina pectoris; Paroxysmal atrial fibrillation ([facility]); detention (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 Start: 02-19-2024 End: 02-20-2024 Telephone encounter [employer] Work Phone: [facility] [employer] Med[facility] Therapy Management Start: 02-12-2024 End: 02-12-2024 Follow-up encounter [employer] Work Phone: [facility] [employer] Med[facility] Therapy Management Comment on above: Cerebrovascular dise ase (Primary Dx); Coronary artery disease involving [place] coronary artery of [place] heart without angina pectoris; Paroxysmal atrial fibrillation ([facility]); detention (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 Start: 02-10-2024 End: 02-10-2024 [facility] Start: 02-10-2024 End: 02-10-2024 [facility] Start: 02-05-2024 End: 02-05-2024 Follow-up encounter [employer] Work Phone: [facility] Medication Therapy Management Comment on above: Cerebrovascular dise ase (Primary Dx); Coronary artery disease involving [place] coronary artery of [place] heart without angina pectoris; Paroxysmal atrial fibrillation ([facility]); detention (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 Start: 02-04-2024 End: 02-04-2024 Telephone encounter [employer] Work Phone: [facility] [employer] [facility] Start: 02-03-2024 End: 02-03-2024 Follow-up encounter [employer] Work Phone: [facility] [employer] Medication Therapy Management Comment on above: Cerebrovascular dise ase (Primary Dx); Coronary artery disease involving [place] coronary artery of [place] heart without angina pectoris; Paroxysmal atrial fibrillation ([facility]); 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 Start: 02-02-2024 End: 02-02-2024 Office outpatient visit 25 minutes Timothy Kang MD Work Phone: [facility] Cardiology Comment on above: History of myocardia l infarction (Primary Dx); History of coronary angioplasty with insertion of stent; Paroxysmal atrial fibrillation ([facility]); Mild mitral regurgitation; History of CVA (cerebrovascular accident); Essential hypertension; Hx of hyperlipidemia; Chest pain, unspecified type; HFrEF (heart failure with reduced ejection fraction) ([facility]) Start: 02-02-2024 End: 02-02-2024 [facility] Start: 01-30-2024 End: 01-30-2024 Telephone encounter Shabana Curry [facility] Physician s Cardiology Start: 01-29-2024 End: 01-29-2024 ambulatory SHABANA PRAVIN Not Available Start: 01-29-2024 End: 01-29-2024 Follow-up encounter [employer] Work Phone: [facility] [employer] Med[facility] Therapy Management Comment on above: Cerebrovascular dise ase (Primary Dx); Coronary artery disease involving [place] coronary artery of [place] heart without angina pectoris; Paroxysmal atrial fibrillation ([facility]); detention (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 Start: 01-26-2024 End: 01-26-2024 Follow-up encounter [employer] Work Phone: [facility] [employer] Med[facility] Therapy Management Comment on above: Cerebrovascular dise ase (Primary Dx); Coronary artery disease involving [place] coronary artery of [place] heart without angina pectoris; Paroxysmal atrial fibrillation (CMS-HCC); 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 Start: 01-15-2024 End: 01-15-2024 Telephone encounter Viky Garcia CMA [facility] General Surgery Start: 01-14-2024 End: 01-14-2024 Telephone encounter Yelena Kuhn LPN [facility] Genito-Urinary Surgeons Start: 01-13-2024 End: 01-13-2024 ambulatory Arash Drake MD Work Phone: [facility] Genito-Urinary Surgeons Comment on above: Bulbous urethral str icture (Primary Dx) Start: 01-05-2024 End: 01-05-2024 Follow-up encounter Dulce Sommer [facility] Work Phone: [facility] Medication Therapy Management Comment on above: Cerebrovascular dise ase (Primary Dx); Coronary artery disease involving [place] coronary artery of [place] heart without angina pectoris; Paroxysmal atrial fibrillation ([facility]); 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 Start: 12-27-2023 End: 12-27-2023 Telephone encounter Dyana Malone [facility] Call [address] Comment on above: hydronephrosis ; Adv ice Only Start: 12-26-2023 End: 12-26-2023 Telephone encounter [employer] Work Phone: [facility] [employer] Med[facility] Therapy Management Start: 12-26-2023 End: 01-03-2024 Emergency department patient visit HERNÁN REDD [facility] Start: 12-26-2023 End: 01-02-2024 Evaluation and management of inpatient SHABANA Young [facility] Start: 12-26-2023 End: 01-22-2024 [facility] Start: 12-24-2023 End: 12-24-2023 ambulatory SHABANA Young [facility] Start: 12-24-2023 End: 12-24-2023 Telephone encounter [facility] Work Phone: [facility] Medication Therapy Management Start: 12-22-2023 End: 12-22-2023 Follow-up encounter Maurice Black MD Work Phone: [facility] Medication Therapy Management Comment on above: Cerebrovascular dise ase (Primary Dx); Coronary artery disease involving [place] coronary artery of [place] heart without angina pectoris; Paroxysmal atrial fibrillation ([facility]); detention (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 Start: 12-22-2023 End: 12-22-2023 [facility] Start: 12-19-2023 End: 12-19-2023 Follow-up encounter Maurice Black MD Work Phone: [facility] Medication Therapy Management Comment on above: Cerebrovascular dise ase (Primary Dx); Coronary artery disease involving [place] coronary artery of [place] heart without angina pectoris; Paroxysmal atrial fibrillation ([facility]); 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 Start: 12-19-2023 End: 12-19-2023 [facility] Start: 12-12-2023 End: 12-12-2023 Follow-up encounter Maurice Black MD Work Phone: [facility] Medication Therapy Management Comment on above: Cerebrovascular dise ase (Primary Dx); Coronary artery disease involving [place] coronary artery of [place] heart without angina pectoris; Paroxysmal atrial fibrillation ([facility]); 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 Start: 12-12-2023 End: 12-12-2023 [facility] Start: 12-10-2023 End: 12-10-2023 Office outpatient visit 15 minutes Fabián Bishop MD Work Phone: [facility] Genito-Urinary Surgeons Comment on above: Urinary incontinence , unspecified type (Primary Dx); Benign prostatic hyperplasia with urinary obstruction; Malignant neoplasm of overlapping sites of bladder ([facility]) Start: 12-10-2023 End: 12-10-2023 [facility] FABIÁN BISHOP [facility] Start: 12-10-2023 End: 12-22-2023 [facility] Start: 12-08-2023 End: 12-08-2023 ambulatory UZMA CAMPOVERDE Not Available Start: 12-03-2023 End: 12-03-2023 Follow-up encounter Maurice Black MD Work Phone: [facility] Medication Therapy Management Comment on above: Cerebrovascular dise ase (Primary Dx); Coronary artery disease involving [place] coronary artery of [place] heart without angina pectoris; Paroxysmal atrial fibrillation ([facility]); detention (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 Start: 12-03-2023 End: 12-03-2023 [facility] Start: 11-27-2023 End: 11-27-2023 Follow-up encounter Maurice Black MD Work Phone: [facility] Medication Therapy Management Comment on above: Cerebrovascular dise ase (Primary Dx); Coronary artery disease involving [place] coronary artery of [place] heart without angina pectoris; Paroxysmal atrial fibrillation ([facility]); 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 Start: 11-27-2023 End: 11-27-2023 [facility] Start: 11-25-2023 End: 11-25-2023 ambulatory UZMA CAMPOVERDE Not Available Start: 11-24-2023 End: 11-24-2023 Follow-up encounter Maurice Black MD Work Phone: [facility] Medication Therapy Management Comment on above: Cerebrovascular dise ase (Primary Dx); Coronary artery disease involving [place] coronary artery of [place] heart without angina pectoris; Paroxysmal atrial fibrillation ([facility]); detention (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; Other cerebral infarction ([facility]) Start: 11-24-2023 End: 11-24-2023 ambulatory SUNIL HERNANDEZ Not Available Start: 11-21-2023 End: 11-21-2023 ambulatory UZMA CAMPOVERDE Not Available Start: 11-21-2023 End: 11-21-2023 Office outpatient visit 10 minutes Savannah Sanchez [employer] Work Phone: [facility] Comment on above: Lymphedema (Primary Dx); Venous stasis ulcer of right lower leg with edema of right lower leg ([facility]) Start: 11-19-2023 End: 11-19-2023 Refill Lula Bryant RN [facility] Cardiology Comment on above: Med Refill Start: 11-18-2023 End: 11-18-2023 Telephone encounter Evelyn Steward [facility] Work Phone: [facility] Medication Therapy Management Comment on above: Med Refill Start: 11-12-2023 End: 11-12-2023 Office outpatient visit 25 minutes Nitish DONALD Work Phone: [facility] Genito-Urinary Surgeons Comment on above: Benign prostatic hyp erplasia with urinary obstruction (Primary Dx) Start: 11-12-2023 End: 11-12-2023 ambulatory NITISH EPSTEIN [facility] Start: 11-12-2023 End: 11-12-2023 Office outpatient visit 10 minutes Savannah Sanchez [employer] Work Phone: [facility] Comment on above: Venous stasis ulcer of right lower leg with edema of right lower leg ([facility]) (Primary Dx); Lymphedema Start: 11-11-2023 End: 11-11-2023 Telephone encounter Reji Collins CMA [facility] Genito-Urinary Surgeons Start: 11-07-2023 End: 11-07-2023 Office outpatient new 20 minutes Savannah Sanchez [employer] Work Phone: [facility] Comment on above: Venous stasis ulcer of left lower leg with edema of left lower leg (CMS-HCC) (Primary Dx); Bilateral lower extremity edema; Lymphedema Start: 11-04-2023 End: 11-04-2023 Follow-up encounter Maurice Black MD Work Phone: [facility] Medication Therapy Management Comment on above: Cerebrovascular dise ase (Primary Dx); Coronary artery disease involving [place] coronary artery of [place] heart without angina pectoris; Paroxysmal atrial fibrillation (CMS-HCC); 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 Start: 10-21-2023 End: 10-21-2023 Follow-up encounter Maurice Black MD Work Phone: [facility] Medication Therapy Management Comment on above: Cerebrovascular dise ase (Primary Dx); Coronary artery disease involving [place] coronary artery of [place] heart without angina pectoris; Paroxysmal atrial fibrillation (CMS-HCC); detention (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 Start: 10-08-2023 End: 10-08-2023 Office outpatient visit 25 minutes Fabián Bishop MD Work Phone: [facility] Comment on above: Malignant neoplasm o f overlapping sites of bladder (CMS-HCC) (Primary Dx) Start: 10-02-2023 End: 10-06-2023 Telephone encounter Fabián Bishop MD Work Phone: [facility] Start: 10-01-2023 End: 10-01-2023 Telephone encounter Roseline Paris [facility] Start: 09-23-2023 End: 09-23-2023 Follow-up encounter Maurice Black MD Work Phone: [facility] Medication Therapy Management Comment on above: Cerebrovascular dise ase (Primary Dx); Coronary artery disease involving [place] coronary artery of [place] heart without angina pectoris; Paroxysmal atrial fibrillation (CMS-HCC); detention (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 Start: 09-01-2023 End: 09-01-2023 Follow-up encounter Maurice Black MD Work Phone: [facility] Medication Therapy Management Comment on above: Cerebrovascular dise ase (Primary Dx); Coronary artery disease involving [place] coronary artery of [place] heart without angina pectoris; Paroxysmal atrial fibrillation ([facility]); detention (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 Start: 08-29-2023 Telephone encounter Dulce muniz [facility] Work Phone: [facility] Medication Therapy Management Start: 08-27-2023 Telephone encounter Fabián Bishop MD Work Phone: [facility]Urinary Surgeons Start: 08-18-2023 Telephone encounter [employer] Work Phone: [facility] Medication Therapy Management Start: 08-15-2023 Orders Only Fabián mendoza MD Work Phone: [facility]Ur[facility] Surgeons Start: 08-14-2023 Telephone encounter [employer] Work Phone: [facility] Medication Therapy Management Start: 08-13-2023 End: 08-13-2023 Patient encounter procedure [facility] Pre-Admission Testing 1 [facility] - Pre Ad[facility] Comment on above: Pre-op exam (Primary Dx); CVD (cardiovascular disease); Hypertension, unspecified type; Type 2 diabetes mellitus without complication, without long-term current use of insulin ([facility]) Start: 08-13-2023 End: 08-13-2023 Preprocedural examination done Pm 1 [facility] Start: 08-13-2023 End: 08-13-2023 Follow-up encounter Maurice Black MD Work Phone: [facility] Medication Therapy Management Comment on above: Cerebrovascular dise ase (Primary Dx); Coronary artery disease involving [place] coronary artery of [place] heart without angina pectoris; Paroxysmal atrial fibrillation ([facility]); 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 Start: 08-01-2023 Refill rKistal clemons NP Work Phone: [facility] Comment on above: Controlled type 2 di abetes mellitus without complication, without long-term current use of insulin ([facility]) Start: 07-29-2023 End: 07-29-2023 Office outpatient visit 15 minutes Timothy Kang MD Work Phone: [facility] Cardiology Comment on above: Encounter for pre-op erative cardiovascular clearance (Primary Dx); History of coronary angioplasty with insertion of stent; Chronic coronary artery disease; Paroxysmal atrial fibrillation ([facility]); Mild mitral regurgitation; Essential hypertension; History of CVA (cerebrovascular accident); History of hyperlipidemia Start: 07-29-2023 End: 07-29-2023 Patient encounter status Timothy Kang MD Work Phone: [facility] [employer] Work Phone: Start: 07-28-2023 Bamboo flowsheet Sunil Ross er DPM Work Phone: [facility] Start: 07-28-2023 Bamboo flowsheet Sunil Ross er DPM Work Phone: [facility] Start: 07-28-2023 Refill Lula Bryant RN [facility] Cardiology Comment on above: Med Refill Start: 07-28-2023 End: 07-28-2023 Patient encounter procedure Sunil Hernandez DPM Work Phone: [facility] Comment on above: Dermatophytosis of n ail (Primary Dx); Type II diabetes mellitus with peripheral circulatory disorder (CMS/HCC); Type II diabetes mellitus with neurological manifestations ([facility]); Peripheral venous insufficiency Start: 07-23-2023 End: 07-23-2023 Follow-up encounter Maurice Black MD Work Phone: [facility] Medication Therapy Management Comment on above: Cerebrovascular dise ase (Primary Dx); Coronary artery disease involving [place] coronary artery of [place] heart without angina pectoris; Paroxysmal atrial fibrillation ([facility]); 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 Procedures Date Procedure Procedure Detail Performing Clinician Start: 11-10-2024 Adult depression screening assessment [facility] Work Phone: Start: 11-06-2024 Adult depression screening assessment Zaynab Dsouza Start: 11-04-2024 Prothrombin time Not In System Ref Prov Start: 10-28-2024 Prothrombin time [facility] Work Phone: Start: 10-27-2024 Follow-up visit Follow-up FABIÁN BISHOP Start: 10-21-2024 Prothrombin time [facility] Work Phone: Start: 10-15-2024 Complete blood count with white cell differential, automated Shabana Costello MD Work Phone: Start: 10-15-2024 Comprehensive metabolic panel Shabana Costello MD Work Phone: Start: 10-15-2024 Lipid panel Shabana Costello MD Work Phone: Start: 10-14-2024 Prothrombin time Not In System Ref Prov Start: 10-11-2024 Prothrombin time [facility] Work Phone: Start: 10-06-2024 Prothrombin time Not In System Ref Prov Start: 10-04-2024 Prothrombin time Not In System Ref Prov Start: 09-30-2024 Prothrombin time Not In System Ref Prov Start: 09-28-2024 Prothrombin time Not In System Ref Prov Start: 09-27-2024 Prothrombin time Not In System Ref Prov Start: 09-23-2024 Prothrombin time Not In System Ref Prov Start: 09-20-2024 Prothrombin time Not In System Ref Prov Start: 09-16-2024 Prothrombin time Not In System Ref Prov Start: 09-15-2024 Prothrombin time Not In System Ref Prov Start: 09-14-2024 Follow-up visit Follow-up ARASH DRAKE Start: 09-14-2024 Prothrombin time Not In System Ref Prov Start: 09-14-2024 Adult depression screening assessment Farrukh Schumacher Work Phone: Start: 09-13-2024 Prothrombin time Not In System Ref Prov Start: 09-12-2024 Prothrombin time Not In System Ref Prov Start: 09-11-2024 Prothrombin time Not In System Ref Prov Start: 09-10-2024 Prothrombin time Not In System Ref Prov Start: 09-09-2024 Prothrombin time Not In System Ref Prov Start: 09-08-2024 Prothrombin time Not In System Ref Prov Start: 08-24-2024 Adult depression screening assessment Rita Bolaños Start: 08-19-2024 Prothrombin time [facility] Work Phone: Start: 08-06-2024 Prothrombin time [facility] Work Phone: Start: 07-08-2024 Prothrombin time [employer] Work Phone: Start: 05-17-2024 Prothrombin time [employer] Work Phone: Start: 05-06-2024 Prothrombin time [employer] Work Phone: Start: 04-28-2024 Prothrombin time [employer] Work Phone: Start: 04-21-2024 Prothrombin time Not In System Ref Prov Start: 04-16-2024 Prothrombin time [employer] Work Phone: Start: 04-09-2024 Prothrombin time [employer] Work Phone: Start: 03-31-2024 Prothrombin time Not In System Ref Prov Start: 03-24-2024 Prothrombin time Not In System Ref Prov Start: 03-18-2024 Prothrombin time [employer] Work Phone: Start: 03-16-2024 MEASURE [employer]IDUAL Arash Drake MD Work Phone: Start: 03-11-2024 Prothrombin time [employer] Work Phone: Start: 02-26-2024 Prothrombin time [employer] Work Phone: Start: 02-19-2024 Prothrombin time [employer] Work Phone: Start: 02-12-2024 Prothrombin time Not In System Ref Prov Start: 02-05-2024 [employer]thrombin time [employer] Work Phone: Start: 02-03-2024 Prothrombin time Not In System Ref Prov Start: 02-02-2024 Follow-up visit Follow-up TIMOTHY KANG Start: 01-29-2024 [employer]throm[employer] time [employer] Work Phone: Start: 01-26-2024 [employer]thrombin time [employer] Work Phone: Start: 01-02-2024 Jennifer Kuhn LPN Start: 12-22-2023 [employer]thrombin time [employer] Work Phone: Start: 12-19-2023 [employer]throm[employer] time [employer] Work Phone: Start: 12-12-2023 [employer] time [employer] Work Phone: Start: 12-10-2023 MEASURE [employer] Fabián Bishop MD Work Phone: Start: 12-03-2023 [employer]thrombin time [employer] Work Phone: Start: 11-27-2023 Prothrombin time [employer] Work Phone: Start: 11-24-2023 [employer]thrombin time [employer] Work Phone: Start: 11-12-2023 NURSING COMMUNICATION Savannah Sanchez [employer] Work Phone: Start: 11-07-2023 NURSING COMMUNICATION Savannah Sanchez [employer] Work Phone: Start: 11-04-2023 [employer] Work Phone: Start: 10-30-2023 History of placement of stent for coronary artery disease Hx of heart artery stent Shabana Costello MD Work Phone: Start: 10-21-2023 [employer] Work Phone: Start: 09-23-2023 [employer] Work Phone: Start: 09-01-2023 [employer] Work Phone: Start: 08-13-2023 [employer] Work Phone: Start: 07-29-2023 Ecg routine ecg w/least 12 lds w/i&r Timothy Kang MD Work Phone: Start: 07-23-2023 [employer] Work Phone: Start: 11-04-2022 History of operative procedure on knee History of bilateral knee replacement Sunil Hernandez DPM Work Phone: Start: 12-26-2008 Colonoscopy [facility] 1 History of operative procedure on knee History of bilateral knee replacement Jr. Camron Palma DO Work Phone: History of placement of stent for coronary artery disease History of coronary angioplasty with insertion of stent Timothy Kang MD Work Phone: History of placement of stent for coronary artery disease History of coronary angioplasty with insertion of stent Timothy Kang MD Work Phone: Plan of Treatment Date Care Activity Detail Author Start: 01-01-2029 Screening for malignant neoplasm of colon Colonoscopy [facility] Start: 11-13-2025 Tobacco Screening Tobacco Screening [facility] Start: 11-10-2025 Depression Screening Depression Screening [facility] Start: 11-06-2025 Depression Screening Depression Screening [facility] Start: 11-06-2025 Tobacco Screening Tobacco Screening [facility] Start: 11-05-2025 Tobacco Screening Tobacco Screening [facility] Start: 10-27-2025 Tobacco Screening Tobacco Screening [facility] Start: 09-14-2025 Depression Screening Depression Screening [facility] Start: 08-24-2025 Depression Screening Depression Screening [facility] Start: 08-24-2025 Tobacco Screening Tobacco Screening [facility] Start: 08-19-2025 Tobacco Screening Tobacco Screening [facility] Start: 08-16-2025 Tobacco Screening Tobacco Screening [facility] Start: 07-26-2025 Tobacco Screening Tobacco Screening [facility] Start: 06-09-2025 Tobacco Screening Tobacco Screening [facility] Start: 06-02-2025 End: 06-02-2025 Patient encounter procedure 06/02/2025 12:00 PM EST Office Visit [facility] [address] [facility] [address] [place] [address] Valeria Gonzalez MD [address] [address] [facility] Start: 05-10-2025 Tobacco Screening Tobacco Screening [facility] Start: 05-06-2025 Tobacco Screening Tobacco Screening [facility] Start: 04-19-2025 Adult BMI Screening Adult BMI Screening [facility] Start: 04-05-2025 Adult BMI Screening Adult BMI Screening [facility] Start: 03-23-2025 Adult BMI Screening Adult BMI Screening [facility] Start: 03-16-2025 Adult BMI Screening Adult BMI Screening [facility] Start: 03-16-2025 Tobacco Screening Tobacco Screening [facility] Start: 03-14-2025 End: 03-14-2025 Patient encounter procedure 03/14/2025 1:30 PM EDT Off ice Visit [facility] [address] [place] [address] Jr. Camron Palma, [address] [place] [address] [facility] Start: 03-05-2025 Adult BMI Screening Adult BMI Screening [facility] Start: 03-05-2025 Tobacco Screening Tobacco Screening [facility] Start: 02-24-2025 End: 02-24-2025 Patient encounter procedure 02/24/2025 11:30 AM EDT Office Visit [facility] [address] [place] [address] Timothy Kang MD [address] [place] [address] [facility] Start: 02-21-2025 Influenza vaccination Influenza Vaccine [facility] Start: 02-12-2025 Tobacco Screening Tobacco Screening [facility] Start: 02-01-2025 Adult BMI Screening Adult BMI Screening [facility] Start: 02-01-2025 Tobacco Screening Tobacco Screening [facility] Start: 01-28-2025 Urine screening for protein Diabetes: Urine Protein Screening [facility] Start: 01-01-2025 Adult BMI Screening Adult BMI Screening [facility] Start: 01-01-2025 Tobacco Screening Tobacco Screening [facility] Start: 12-25-2024 Adult BMI Screening Adult BMI Screening [facility] Start: 12-25-2024 Tobacco Screening Tobacco Screening [facility] Start: 12-14-2024 End: 12-14-2024 Patient encounter procedure 12/14/2024 1:00 PM EDT Off ice Visit [facility] [address] [facility] [phone] Shabana Costello MD [address] [facility] [place] [address] [facility] Start: 12-09-2024 Adult BMI Screening Adult BMI Screening [facility] Start: 12-09-2024 Tobacco Screening Tobacco Screening [facility] Start: 11-29-2024 End: 11-29-2024 Patient encounter procedure 11/29/2024 3:15 PM EDT Off ice Visit [facility] [address] [address] Corina Hassan, [employer] [address] [place] [address] [facility] Start: 11-25-2024 Hemoglobin A1c measurement Diabetes: Hemoglobin A1C [facility] Start: 11-23-2024 End: 11-23-2024 Patient encounter procedure 11/23/2024 10:30 AM EDT Procedure Visit [facility] [address] [place] [address] Sunil Hernandez DPM [address] [place] [address] [facility] Start: 11-20-2024 Tobacco Screening Tobacco Screening [facility] Start: 11-11-2024 Adult BMI Screening Adult BMI Screening [facility] Start: 11-11-2024 Tobacco Screening Tobacco Screening [facility] Start: 11-11-2024 End: 11-11-2024 Admission to same day surgery center 11/11/2024 10:00 AM EDT - 11/11/2024 10:30 AM EDT Surgery [facility] [address] [facility] [place] [address] Carlos Hall MD [address] [place] [address] ESOPHAGOGASTRODUODENOSCOPY INSERTION PEG TUBE [02061 (CPT )] [facility] Comment on above: ESOPHAGOGASTRODUODENOSCOPY INSERTION PEG TUBE [76802 (CPT )] Start: 11-11-2024 End: 11-11-2024 Egd percutaneous placement gastrostomy tube ESOPHAGOGASTRODUODENOSCOPY INSERTION PEG TUBE . 11/11/2024 10:00 AM EDT [facility] Start: 11-06-2024 Adult BMI Screening Adult BMI Screening [facility] Start: 11-06-2024 Tobacco Screening Tobacco Screening [facility] Start: 10-27-2024 End: 10-27-2024 Patient encounter procedure 10/27/2024 1:00 PM EDT Off ice Visit [facility] [address] [place] [address] [place] [address] Fabián Bishop MD [facility] [place], [place] [id number] [facility] Start: 10-15-2024 End: 10-15-2025 Microalbumin/Creatinine panel in random Urine Microalbumin / creatinine urine ratio Lab Routine Type 2 diabetes mellitus with diabetic neuropathy, with long-term current use of insulin ([facility]) Expected: 10/15/2024 (Approximate), Expires: 10/15/2025 [facility] Work Phone: Comment on above: Expected: 10/15/2024 (Approximate), Expi res: 10/15/2025 Start: 10-15-2024 End: 10-15-2024 Patient encounter procedure 10/15/2024 11:30 AM EDT Office Visit [facility] [address] [place] [phone] Shabana Costello MD [address] [facility] [address] Arrived [facility] Comment on above: Arrived Start: 10-14-2024 End: 10-14-2024 Patient encounter procedure 10/14/2024 11:00 AM EDT Office Visit [facility] [address] [place] [phone] Shabana Costello MD [address] [place], [place] [id number] [facility] Start: 10-07-2024 Adult BMI Screening Adult BMI Screening [facility] Start: 10-07-2024 Tobacco Screening Tobacco Screening [facility] Start: 09-30-2024 Adult BMI Screening Adult BMI Screening [facility] Start: 09-30-2024 Tobacco Screening Tobacco Screening [facility] Start: 09-14-2024 End: 09-14-2024 Patient encounter procedure 09/14/2024 2:00 PM EDT Off ice Visit [facility] [address] [place] [id number] [facility] Start: 09-14-2024 End: 09-13-2025 XR Chest PA and Lateral [facility] Work Phone: Comment on above: Expected: 09/14/2024 (Approximate), Expi res: 09/13/2025 Start: 09-08-2024 End: 09-08-2024 Patient encounter procedure 09/08/2024 10:00 AM EDT Office Visit [facility] [address] [place] [phone] Kristal Johnson NP [address] [place], [place] [phone] [facility] Start: 09-07-2024 Hemoglobin A1c measurement Diabetes: Hemoglobin A1C [facility] Start: 09-06-2024 End: 09-06-2024 Follow-up encounter 09/06/2024 11:30 AM EDT Follow Up Anticoagulation [facility] Pharmacy Medication Management [address] [place] [address] Maurice Black MD [employer], [address] [place] [address] [facility] Medication Management Start: 08-26-2024 Adult BMI Screening Adult BMI Screening [facility] Start: 08-26-2024 Tobacco Screening Tobacco Screening [facility] Start: 08-26-2024 End: 08-26-2024 Clinical Support 08/26/2024 1:45 PM EST Clinical Support [facility] Medication Management [address] [place] [address] Maurice Black MD [address] [employer], [address] [place] [address] [facility]ication Management Start: 08-20-2024 End: 08-20-2024 Patient encounter procedure 08/20/2024 2:30 PM EST Appointment [facility] Cardiovascular [address] [place] [address] Jerri Brunner, PAJcC [address] [place] [address] [facility] Start: 08-19-2024 End: 08-13-2025 Basic metabolic 2000 panel - Serum or Plasma Basic Metabolic Panel Lab Routine Chronic combined systolic and diastolic congestive heart failure ([facility]) HFrEF (heart failure with reduced ejection fraction) ([facility]) Expected: 08/19/2024, Expires: 08/13/2025 [employer] Work Phone: Comment on above: Expected: 08/19/2024, Expires: Start: 08-19-2024 End: 08-19-2024 Follow-up encounter 08/19/2024 2:00 PM EST Follo w Up Anticoagulation [facility] Medication Management [address] [facility] [facility] [place] [address] Maurice Black MD [address] [facility], [address] [place] [address] [facility]ication Management Start: 08-19-2024 End: 08-19-2025 Holter monitor study Holter monitor 24-48 hour Cardiac Services Routine Paroxysmal atrial fibrillation ([facility]) Expected: 08/19/2024, Expires: 08/19/2025 [employer] Work Phone: Comment on above: Expected: 08/19/2024, Expires: Start: 08-19-2024 End: 08-19-2024 Patient encounter procedure 08/19/2024 12:30 PM EST Office Visit [facility] [address] [place] [address] Jerri Brunner PA-C [address] [place] [address] [facility] Start: 08-16-2024 End: 08-16-2024 Admission to same day surgery center [facility] Comment on above: CYSTOSCOPY WITH [facility] BLADDER SOLUTION [57920 (CPT )] CYSTOSCOPY RETROGRAD E PYELOGRAM [facility] solution [66166 (CPT )] Start: 08-16-2024 End: 08-16-2024 Cysto bladder w/ureteral catheterization [facility] Start: 08-16-2024 End: 08-16-2024 Cystourethroscopy CYSTOSCOPY Urinary incontinence, unspecified type 08/16/2024 8:30 AM EST [facility] Start: 08-16-2024 Subsequent hospital visit by physician [facility] Start: 08-13-2024 End: 08-13-2024 ambulatory 08/13/2024 3:50 PM EST Support Visit [facility] Admit [address] [place] [address] [facility] Admit Start: 08-13-2024 Adult BMI Screening Adult BMI Screening [facility] Start: 08-13-2024 Tobacco Screening Tobacco Screening [facility] Start: 08-13-2024 End: 08-13-2024 Clinical Support 08/13/2024 10:30 AM EST Clinical Support [facility] Pharm[facility] Medication Management [address] [place] [address] Maurice Black MD [address] [place] [address], [address] [place] [address] [facility] Medication Management Start: 08-11-2024 End: 08-11-2024 Clinical Support [facility] Medication Therapy Management Start: 08-05-2024 End: 08-05-2024 Follow-up encounter [facility] Medication Therapy Management Start: 07-29-2024 Adult BMI Screening Adult BMI Screening [facility] Start: 07-29-2024 Tobacco Screening Tobacco Screening [facility] Start: 07-26-2024 End: 07-26-2024 Patient encounter procedure 07/26/2024 2:30 PM EST Off ice Visit [facility] Failure [facility] [address] [place] [address] Corina Hassan, [employer] [address] [place] [address] [facility] Start: 07-26-2024 End: 07-26-2024 Patient encounter procedure [facility] Comment on above: Arrived Start: 07-20-2024 End: 07-20-2024 Clinical Support 07/20/2024 10:30 AM EST Clinical Support [facility] Medication Therapy Management [address] [place] [address] Maurice Black MD [employer], [address] [place] [address] [facility] Medication Therapy Management Start: 07-12-2024 End: 06-24-2025 Basic metabolic 2000 panel - Serum or Plasma Basic Metabolic Panel Lab Routine Chronic combined systolic and diastolic congestive heart failure ([facility]) HFrEF (heart failure with reduced ejection fraction) ([facility]) Expected: 07/12/2024, Expires: 06/24/2025 [employer] Work Phone: Comment on above: Expected: 07/12/2024, Expires: Start: 07-08-2024 End: 07-08-2024 Follow-up encounter 07/08/2024 11:00 AM EST Follow Up Anticoagulation [facility] Medication Therapy Management [address] [place] [address] Maurice Black MD [address] [employer], [address] [place] [address] [facility] Medication Therapy Management Start: 06-28-2024 End: 06-28-2024 Patient encounter procedure 06/28/2024 2:30 PM EST Off ice Visit [facility] Failure [facility] [address] [place] [address] Corina Hassan, [employer] [address] [place] [address] [facility] Start: 06-24-2024 End: 06-24-2024 Clinical Support 06/24/2024 1:15 PM EST Clinical Support [facility] Medication Therapy Management [address] [place] [address] Maurice Black MD [facility] [employer], [address] [place] [address] [facility] Medication Therapy Management Start: 06-10-2024 End: 06-10-2024 Clinical Support 06/10/2024 2:00 PM EST Clinical Support [facility] Medication Therapy Management [address] [place] [address] Maurice Black MD [address] [employer], [address] [place] [address] [facility] Medication Therapy Management Start: 06-09-2024 End: 06-09-2025 Comprehensive metabolic 2000 panel - Serum or Plasma Comprehensive metabolic panel Lab Routine Type 2 diabetes mellitus without complication, without long-term current use of insulin ([facility]) Expected: 06/09/2024 (Approximate), Expires: 06/09/2025 [facility] Work Phone: Comment on above: Expected: 06/09/2024 (Approximate), Expi res: 06/09/2025 Start: 06-09-2024 End: 06-09-2025 Hemoglobin A1c/Hemoglobin.total in Blood Hemoglobin A1c Lab Routine Type 2 diabetes mellitus without complication, without long-term current use of insulin ([facility]) Expected: 06/09/2024 (Approximate), Expires: 06/09/2025 [facility] Comment on above: Expected: 06/09/2024 (Approximate), Expi res: 06/09/2025 Start: 06-09-2024 End: 06-09-2024 Patient encounter procedure 06/09/2024 1:45 PM EST Off ice Visit [facility] [address] [facility] [place] [address] Fabián Bishop MD [address] [place] [address] [facility] Start: 06-09-2024 End: 06-09-2024 Follow-up encounter 06/09/2024 1:15 PM EST Follo w Up Anticoagulation [facility] Medication Therapy Management [address] [place] [address] Maurice Black MD [employer], [address] [place] [address] [facility] Medication Therapy Management Start: 06-09-2024 End: 06-09-2024 Patient encounter procedure [facility] Comment on above: Arrived Start: 05-25-2024 End: 05-25-2024 Clinical Support 05/25/2024 3:00 PM EST Clinical Support [facility] Medication Therapy Management [address] [place] [address] Maurice Black MD [employer], [address] [place] [address] [facility] Medication Therapy Management Start: 05-24-2024 End: 05-10-2025 Basic metabolic 2000 panel - Serum or Plasma Basic Metabolic Panel Lab Routine Chronic combined systolic and diastolic congestive heart failure ([facility]) Expected: 05/24/2024 (Approximate), Expires: 05/10/2025 [employer] Work Phone: Comment on above: Expected: 05/24/2024 (Approximate), Expi res: 05/10/2025 Start: 05-17-2024 End: 05-17-2024 Follow-up encounter 05/17/2024 11:30 AM EST Follow Up Anticoagulation [facility] Medication Therapy Management [address] [facility] [place] [address] Maurice Black MD [employer], [address] [place] [address] [facility] Medication Therapy Management Start: 05-10-2024 End: 05-10-2024 Patient encounter procedure 05/10/2024 2:30 PM EST Off ice Visit [facility] [address] [facility] [place] [address] Corina Hassan, [employer] [address] [place], [place] [address] [facility] Start: 05-07-2024 Adult BMI Screening Adult BMI Screening [facility] Start: 05-07-2024 Tobacco Screening Tobacco Screening [facility] Start: 05-06-2024 End: 05-06-2024 Patient encounter procedure 05/06/2024 11:45 AM EST Office Visit [facility] [address] [facility] 1 [place] [address] Christian Nino MD [address] [place] [address] [facility] Start: 05-06-2024 End: 05-06-2024 Follow-up encounter 05/06/2024 11:15 AM EST Follow Up Anticoagulation [facility] Medication Therapy Management [address] [place] [address] Maurice Black MD [address] [place] [address], [address] [place] [address] [facility] Medication Therapy Management Start: 04-19-2024 End: 04-19-2024 Clinical Support [facility] Medication Therapy Management Start: 04-19-2024 End: 04-16-2025 Basic metabolic 2000 panel - Serum or Plasma Basic Metabolic Panel Lab Routine Cerebrovascular disease Expected: 04/19/2024, Expires: 04/16/2025 [employer] Work Phone: Comment on above: Expected: 04/19/2024, Expires: Start: 04-16-2024 Glaucoma screening Diabetes: Retinopathy Screening [facility] Start: 04-16-2024 End: 04-16-2024 Follow-up encounter 04/16/2024 9:45 AM EDT Follo w Up Anticoagulation [facility] Medication Therapy Management [address] [place] [address] Maurice Black MD [address] [employer], [address] [place] [address] [facility] Medication Therapy Management Start: 04-13-2024 End: 04-13-2025 CBC W Auto Differential panel - Blood CBC and differential Lab Routine Anemia, unspecified type Expected: 04/13/2024 (Approximate), Expires: 04/13/2025 [facility] Work Phone: Comment on above: Expected: 04/13/2024 (Approximate), Expi res: 04/13/2025 Start: 04-13-2024 End: 04-13-2024 Patient encounter procedure [facility] Comment on above: Arrived Start: 04-09-2024 End: 04-09-2024 Follow-up encounter 04/09/2024 11:30 AM EDT Follow Up Anticoagulation [facility] Medication Therapy Management [address] [place] [address] Maurice Black MD [address] [employer], [address] [place] [address] [facility] Medication Therapy Management Start: 04-05-2024 End: 04-05-2024 Clinical Support 04/05/2024 3:15 PM EDT Clinical Support [facility] Medication Therapy Management [address] [place] [address] [facility] Medication Therapy Management Start: 03-30-2024 End: 03-23-2025 Basic metabolic 2000 panel - Serum or Plasma Basic Metabolic Panel Lab Routine Congestive heart failure, unspecified HF chronicity, unspecified heart failure type ([facility]) Expected: 03/30/2024, Expires: 03/23/2025 [facility] Work Phone: Comment on above: Expected: 03/30/2024, Expires: Start: 03-29-2024 Hemoglobin A1c measurement Diabetes: Hemoglobin A1C [facility] Start: 03-25-2024 End: 03-25-2024 Patient encounter procedure [facility] Comment on above: Arrived Start: 03-23-2024 End: 03-23-2024 Clinical Support 03/23/2024 1:30 PM EDT Clinical Support [facility] Medication Therapy Management [address] [place] [address] [facility] Medication Therapy Management Start: 03-16-2024 End: 03-16-2024 Patient encounter procedure 03/16/2024 3:30 PM EDT Off ice Visit [facility] [address] [place] [address] [place] [address] Arash Drake MD [facility] [place] [address] [facility] Start: 03-16-2024 End: 03-16-2025 Bacteria identified in Urine by Culture Urine Culture Microbiology Routine Urinary incontinence, unspecified type Expected: 03/16/2024 (Approximate), Expires: 03/16/2025 [facility] Work Phone: Comment on above: Expected: 03/16/2024 (Approximate), Expi res: 03/16/2025 Start: 03-15-2024 End: 03-15-2024 Patient encounter procedure [facility] Comment on above: Arrived Start: 03-05-2024 End: 03-05-2024 Admission to same day surgery center 03/05/2024 8:30 AM EDT - 03/05/2024 9:00 AM EDT Surgery [facility] Surgery [address] [place] [address] Anni Lau MD [address] [place] [address] ESOPHAGOGASTRODUODENOSCOPY DIAGNOSTIC [88374 (CPT )] [facility] Comment on above: ESOPHAGOGASTRODUODENOSCOPY DIAGNOSTIC [4 3235 (CPT )] Start: 03-05-2024 End: 03-05-2024 Anesthesia consultation 03/05/2024 8:30 AM EDT Anesthesia Event [facility] [address] [place] [address] Nabil Dsouza, DO [address] [facility], [place] [id number] [facility] Start: 03-05-2024 End: 03-05-2024 Esophagogastroduodenoscopy transoral diagnostic ESOPHAGOGASTRODUODENOSCOPY DIAGNOSTIC gastric ulcer 03/05/2024 8:30 AM EDT [facility] Start: 03-05-2024 Subsequent hospital visit by physician 03/05/2024 8:30 AM EDT Hospital Encounter [facility] Surgery [address] [place] [address] Anni Lau MD [address] [place] [id number] [facility] Start: 03-01-2024 End: 03-01-2024 Patient encounter procedure 03/01/2024 1:00 PM EDT Off ice Visit [facility] Failure [facility] [address] [place] [address] Corina Hassan, [employer] [address] [place] [address] [facility] Start: 02-26-2024 End: 02-26-2024 ambulatory 02/26/2024 3:50 PM EDT Support Visit [facility] - Pre Admit [address] [place] [address] [facility] - Pre Admit Start: 02-22-2024 COVID-19 Vaccine ( season) COVID-19 Vaccine () [facility] Start: 02-22-2024 COVID-19 Vaccine () COVID-19 Vaccine () [facility] Start: 02-22-2024 Influenza vaccination [facility] Start: 02-10-2024 End: 02-10-2024 Patient encounter procedure [facility] Start: 02-02-2024 End: 02-01-2025 NM Heart Perfusion W stress and W radionuclide IV Nuc stress [facility] Routine Chest pain, unspecified type Expected: 02/02/2024, Expires: 02/01/2025 [employer] Work Phone: Comment on above: Expected: 02/02/2024, Expires: Start: 02-02-2024 End: 02-02-2024 Patient encounter procedure 02/02/2024 1:45 PM EDT Off ice Visit [facility] [address] [place] [address] [place] [address] Fabián Bishop MD [address] [place] [address] [facility] Start: 02-02-2024 End: 02-02-2024 Patient encounter procedure 02/02/2024 9:15 AM EDT Off ice Visit [facility] [address] [place] [phone] Timothy Kang MD [address] [place] [address] [facility] Start: 01-07-2024 End: 10-07-2024 Cytology Cytology Pathology and Cytology Routine Malignant neoplasm of overlapping sites of bladder ([facility]) Expected: 01/07/2024 (Approximate), Expires: 10/07/2024 [facility] Work Phone: Comment on above: Expected: 01/07/2024 (Approximate), Expi res: 10/07/2024 Start: 01-07-2024 End: 10-07-2024 Urovysion for bladder Urovysion for bladder Lab Routine Malignant neoplasm of overlapping sites of bladder ([facility]) Expected: 01/07/2024 (Approximate), Expires: 10/07/2024 [facility] [employer] Comment on above: Expected: 01/07/2024 (Approximate), Expi res: 10/07/2024 Start: 12-31-2023 End: 12-31-2023 Patient encounter procedure 12/31/2023 10:00 AM EDT Office Visit [facility] [address] [place] [phone] Jr. Camron Palma, [address] [facility] [address] [place] [address] [facility] Start: 12-26-2023 End: 12-26-2023 Follow-up encounter 12/26/2023 10:15 AM EDT Follow Up Anticoagulation [facility] Medication Therapy Management [address] [place] [address] Maurice Black MD [address] [facility], [address] [place] [address] [facility] Start: 12-22-2023 End: 12-22-2023 Follow-up encounter 12/22/2023 1:15 PM EDT Follo w Up Anticoagulation [facility] [address] [place] [address] Maurice Black MD [address] [employer], [address] [place] [address] [facility] Start: 12-19-2023 End: 12-19-2023 Follow-up encounter 12/19/2023 10:45 AM EDT Follow Up Anticoagulation [facility] [address] [place] [address] Maurice Black MD [address] [employer], [address] [place] [address] [facility] Start: 12-17-2023 End: 12-17-2023 Patient encounter procedure 12/17/2023 3:00 PM EDT Off ice Visit [facility] [address] [place] [address] [place] [phone] Nitish Epstein PA [address] [place] [address] [facility] Start: 12-12-2023 End: 12-12-2023 Follow-up encounter 12/12/2023 1:30 PM EDT Follo w Up Anticoagulation [facility] [address] [place] [address] Maurice Black MD [address] [employer], [address] [place] [address] [facility] Start: 12-10-2023 End: 12-10-2023 Follow-up encounter 12/10/2023 1:30 PM EDT Follo w Up Anticoagulation [facility] Management [address] [place] [address] [facility], [address] [place] [address] [facility] Start: 12-08-2023 End: 12-08-2023 Patient encounter procedure 12/08/2023 9:30 AM EDT Off ice Visit [facility] [address] [place] [facility] [place] [phone] Kristal Johnson NP [address] [place] [address] [facility] Start: 12-06-2023 Medicare Annual Wellness (AWV) Medicare Annual Wellness (AWV) [facility] Start: 12-06-2023 Urine screening for protein Diabetes: Urine Protein Screening [facility] Start: 12-03-2023 End: 12-03-2023 Follow-up encounter 12/03/2023 9:00 AM EDT Follo w Up Anticoagulation [facility] [address] [place] [address] Maurice Black MD [address] [employer], [address] [place] [address] [facility] Start: 11-27-2023 End: 11-27-2023 Follow-up encounter 11/27/2023 2:30 PM EDT Follo w Up Anticoagulation [facility] [address] [place] [address] Maurice Black MD [address] [employer], [address] [place] [address] [facility] Start: 11-24-2023 End: 11-24-2023 Follow-up encounter 11/24/2023 2:15 PM EDT Follo w Up Anticoagulation [facility] Management [address] [place] [address] Maurice Black MD [address] [employer], [address] [place] [address] [facility] Start: 11-24-2023 End: 11-24-2023 Patient encounter procedure 11/24/2023 10:15 AM EDT Procedure Visit [facility] [address] [place] [address] Sunil Hernandez DPSusana [address] [place] [address] [facility] Start: 11-21-2023 End: 11-21-2023 Follow-up encounter 11/21/2023 11:30 AM EDT Follow Up Anticoagulation [facility] Management [address] [place] [address] Maurice Black MD [address] [employer], [address] [place] [address] [facility] Start: 11-21-2023 End: 11-21-2023 Patient encounter procedure 11/21/2023 9:40 AM EDT Off ice Visit [facility] [address] [place] [address] Savannah Sanchez, [employer] [employer] [address] [facility] [place] [address] [facility] Start: 11-12-2023 End: 11-12-2023 Patient encounter procedure 11/12/2023 10:20 AM EDT Office Visit [facility] [address] [place] [address] Savannah Sanchez, [employer] [facility] [employer] [address] [place] [address] [facility] Start: 11-07-2023 End: 11-07-2023 Patient encounter procedure 11/07/2023 8:40 AM EDT Off ice Visit [facility]ound [facility] [address] [place] [address] Savannah Sanchez, [employer] [employer] [address] [place] [address] [facility] Start: 11-04-2023 End: 11-04-2023 Follow-up encounter 11/04/2023 11:15 AM EDT Follow Up Anticoagulation [facility] Therapy Management [address] [place] [address] Maurice Black MD [employer], [address] [place] [address] [facility] Start: 10-21-2023 End: 10-21-2023 Follow-up encounter 10/21/2023 11:15 AM EDT Follow Up Anticoagulation [facility] Management [address] [place] [address] Maurice Black MD [facility] [employer], [address] [place] [address] [facility] Start: 10-08-2023 End: 10-08-2023 Patient encounter procedure 10/08/2023 1:00 PM EDT Off ice Visit [facility] [address] [place] [address] [place] [address] Fabián Bishop MD [facility] [place] [address] [facility] Start: 09-23-2023 End: 09-23-2023 Follow-up encounter 09/23/2023 11:15 AM EDT Follow Up Anticoagulation [facility] Med[facility] Therapy Management [address] [place] [address] Maurice Black MD [facility] [employer], [address] [place] [address] [facility] Start: 09-01-2023 End: 09-01-2023 Follow-up encounter 09/01/2023 11:00 AM EDT Follow Up Anticoagulation [facility] Therapy Management [address] [place] [address] Maurice Black MD [facility] [address] [facility], [address] [place] [address] [facility] Start: 08-27-2023 End: 08-27-2023 Admission to same day surgery center 08/27/2023 10:00 AM EST - 08/27/2023 10:45 AM EST Surgery [facility] [address] [place] [address] Fabián Bishop MD [facility] [place] [address] CYSTOSCOPY [24489 (CPT )] [facility] Comment on above: CYSTOSCOPY [99401 (CPT )] Start: 08-27-2023 End: 08-27-2023 Anesthesia consultation 08/27/2023 10:00 AM EST Anesthesia Event [facility] [address] [place] [address] Nabil Dsouza, DO [address] [facility] [place] [address] [facility] Start: 08-27-2023 End: 08-27-2023 Cysto calibration dilat urtl strix/stenosis CYSTOSCOPY DILATATION URETHRAL Malignant neoplasm of overlapping sites of bladder (CMS-HCC) Bulbous urethral stricture 08/27/2023 10:[address] [facility] Start: 08-27-2023 End: 08-27-2023 CYSTOSCOPY TRANSURETHRAL FULGURATION BLADDER CYSTOSCOPY TRANSURETHRAL FULGURATION BLADDER Malignant neoplasm of overlapping sites of bladder (CMS-HCC) Bulbous urethral stricture 08/27/2023 10:00 AM EST [facility] Start: 08-27-2023 End: 08-27-2023 Cystourethroscopy CYSTOSCOPY Malignant neoplas m of overlapping sites of bladder (CMS-HCC) Bulbous urethral stricture 08/27/2023 10:[address] [facility] Start: 08-27-2023 End: 08-27-2023 Cystourethroscopy with biopsy BIOPSY BLADDER Malignant neoplasm of overlapping sites of bladder (CMS-HCC) Bulbous urethral stricture 08/27/2023 10:00 AM EST [facility] Start: 08-27-2023 Subsequent hospital visit by physician 08/27/2023 10:00 AM EST Hospital Encounter [facility] [address] [facility] [place] [address] Fabián Bishop MD [address] [place] [address] [facility] Start: 08-13-2023 End: 08-13-2023 Patient encounter procedure 08/13/2023 9:45 AM EST Procedure visit [facility] - Pre Admit [address] [place] [address] [facility] Admit Start: 08-13-2023 End: 08-13-2023 Follow-up encounter 08/13/2023 9:30 AM EST Follo w Up Anticoagulation [facility] Therapy Management [address] [place] [address] Maurice Black MD [address] [employer], [address] [place] [address] [facility] Start: 07-29-2023 End: 07-29-2023 Patient encounter procedure 07/29/2023 2:00 PM EST [facility] [address] [place] [phone] Timothy Kang MD [address] [place] [address] [facility] Start: 07-28-2023 End: 07-28-2023 Patient encounter procedure 07/28/2023 10:15 AM EST Procedure Visit [facility] [address] [place] [address] Sunil Hernandez DPM [address] [place], [place] [id number] Arrived [facility] Comment on above: Arrived Start: 06-11-2023 COVID-19 Vaccine () COVID-19 Vaccine ( season) [facility] Start: 03-07-2023 Hemoglobin A1c measurement Diabetes: Hemoglobin A1C TRAV [facility] Start: 12-26-2013 Screening for malignant neoplasm of colon Colonoscopy [facility] Start: 2010 Abdominal aortic aneurysm screening Abdominal Aortic Aneurysm (AAA) Screen [facility] Start: 2010 Fall Risk Screening Fall Risk Screening [employer] Start: 01-13-1964 Administration of varicella zoster vaccine Zoster (Shingles) Vaccine (1 of 2) [employer] Start: 01-13-1964 DTaP,Tdap and Td Vaccines (1 - Tdap) DTaP,Tdap and Td Vaccines (1 - Tdap) [employer] Start: 1963 Adult BMI Follow Up Plan Adult BMI Follow Up Plan [employer] Start: 1957 Depression Screening Depression Screening [employer] Start: 1945 Medicare Annual Wellness Visit Medicare Annual Wellness Visit [employer] End: 07-08-2025 Basic metabolic 2000 panel - Serum or Plasma Basic Metabolic Panel Lab Routine Congestive heart failure, unspecified HF chronicity, unspecified heart failure type ([facility]) 1 Occurrences starting 07/08/2024 until 07/08/2025 [employer] Work Phone: Comment on above: 1 Occurrences starting 07/08/2024 until 07/08/2025 Basic metabolic 2000 panel - Serum or Plasma Basic Metabolic Panel Lab Routine Congestive heart failure, unspecified HF chronicity, unspecified heart failure type ([facility]) 07/08/2024 11:38 AM EST [employer] Basic metabolic 2000 panel - Serum or Plasma Basic Metabolic Panel Lab Routine HFrEF (heart failure with reduced ejection fraction) ([facility]) 07/20/2024 11:11 AM EST [employer] Work Phone: End: 08-06-2025 Basic metabolic 2000 panel - Serum or Plasma Basic Metabolic Panel Lab Routine Chronic combined systolic and diastolic congestive heart failure ([facility]) 1 Occurrences starting 08/06/2024 until 08/06/2025 [employer] Work Phone: Comment on above: 1 Occurrences starting 08/06/2024 until 08/06/2025 Basic metabolic 2000 panel - Serum or Plasma Basic Metabolic Panel Lab Routine Chronic combined systolic and diastolic congestive heart failure ([facility]) 08/06/2024 3:32 PM EST [employer] End: 02-01-2025 Basic metabolic 2000 panel - Serum or Plasma Basic Metabolic Panel Lab Routine Essential hypertension 1 Occurrences starting 02/02/2024 until 02/01/2025 [employer] Comment on above: 1 Occurrences starting 02/02/2024 until 02/01/2025 Basic metabolic 2000 panel - Serum or Plasma Basic Metabolic Panel Lab Routine Essential hypertension 02/02/2024 10:09 AM EDT [employer] Basic metabolic 2000 panel - Serum or Plasma Basic Metabolic Panel Lab Routine Chronic combined systolic and diastolic congestive heart failure ([facility]) 04/05/2024 3:59 PM EDT [employer] Work Phone: Cytology non-gynecologic Cytolog y non-gynecologic Pathology and Cytology Routine Malignant neoplasm of overlapping sites of bladder ([facility]) Ordered: 10/27/2024 [employer] Comment on above: Ordered: 10/27/2024 End: 10-26-2025 Lipid panel Lipid panel Lab Routine Mixe d hyperlipidemia 1 Occurrences starting 10/26/2024 until 10/26/2025 [employer] Work Phone: Comment on above: 1 Occurrences starting 10/26/2024 until 10/26/2025 End: 02-01-2025 Magnesium [Mass/volume] in Serum or Plasma Magnesium Lab Routine Essential hypertension 1 Occurrences starting 02/02/2024 until 02/01/2025 [employer] Comment on above: 1 Occurrences starting 02/02/2024 until 02/01/2025 Magnesium [Mass/volu me] in Serum or Plasma Magnesium Lab Routine Essential hypertension 02/02/2024 10:09 AM EDT [employer] End: 05-06-2025 Magnesium [Mass/volume] in Serum or Plasma Magnesium Lab Routine Chronic combined systolic and diastolic congestive heart failure ([facility]) 1 Occurrences starting 05/06/2024 until 05/06/2025 [employer] Work Phone: Comment on above: 1 Occurrences starting 05/06/2024 until 05/06/2025 Magnesium [Mass/volu me] in Serum or Plasma Magnesium Lab Routine Chronic combined systolic and diastolic congestive heart failure ([facility]) 05/06/2024 1:04 PM [facility] [employer] End: 05-17-2025 Magnesium [Mass/volume] in Serum or Plasma Magnesium Lab Routine Chronic combined systolic and diastolic congestive heart failure ([facility]) 1 Occurrences starting 05/17/2024 until 05/17/2025 [facility] Work Phone: Comment on above: 1 Occurrences starting 05/17/2024 until 05/17/2025 POCT Urinalysis Auto , W/O Microscopy POCT Urinalysis Auto, W/O Microscopy Point of Care Testing Routine Urinary incontinence, unspecified type Ordered: 11/11/2023 [facility] Work Phone: Comment on above: Ordered: 11/11/2023 End: 10-27-2025 Urovysion for bladder Urovysion for bladder Lab Routine Malignant neoplasm of overlapping sites of bladder ([facility]) 1 Occurrences starting 10/27/2024 until 10/27/2025 [facility] Work Phone: Comment on above: 1 Occurrences starting 10/27/2024 until 10/27/2025 Void Trial Void Trial Pr ocedure Routine Bulbous urethral stricture Ordered: 01/13/2024 [facility] Work Phone: Comment on above: Ordered: 01/13/2024 XR Knee - left 1 or 2 Views XR k nee 1 or 2 views left Imaging Routine Acute pain of left knee 03/15/2024 2:45 PM EDT [facility] [employer] XR Knee - right 1 or 2 Views XR knee 1 or 2 views right Imaging Routine Acute pain of right knee 03/15/2024 2:45 PM EDT [facility] Work Phone: Immunizations Immunization Date Immunization Notes Care Provider [employer] 04-05-2024 Seasonal trivalent influenza vaccine, adjuvanted, preservative free Kristal Johnson NP Work Phone: [facility] 04-05-2024 influenza virus vaccine, unspecified formulation [facility] Work Phone: [facility] 04-16-2023 influenza, high dose seasonal, preservative-free Sunil Hernandez DPM Work Phone: [facility] 04-16-2023 Influenza, High-dose Seasonal, Quadrivalent, Preservative Free Sunil Hernandez DPM Work Phone: [facility] 04-16-2023 SARS-COV-2 (COVID-19 ) vaccine, mRNA, spike protein, LNP, PF, 50 mcg/0.5 mL Sunil Hernandez DPM Work Phone: [facility] 04-16-2023 influenza virus vaccine, unspecified formulation Fabián Bishop MD Work Phone: [facility] 03-29-2022 influenza, high dose seasonal, preservative-free Sunil Hernandez DPM Work Phone: [facility] 03-29-2022 Influenza, High-dose Seasonal, Quadrivalent, Preservative Free Sunil Hernandez DPM Work Phone: [facility] 03-29-2022 Moderna Bivalent Booster Vaccination Sunil Hernandez DPM Work Phone: [facility] 03-29-2022 Moderna SARS-CoV-2 50mcg/0.5mL Booster Sunil Hernandez DPM Work Phone: [facility] 03-29-2022 SARS-COV-2 (COVID-19 ) vaccine, mRNA, spike protein, LNP, bivalent, preservative free, 30 mcg/0.3 mL dose, yuliet-sucrose formulation Sunil Hernandez DPM Work Phone: [facility] 04-30-2021 influenza, high dose seasonal, preservative-free Sunil Hernandez DPM Work Phone: [facility] 04-30-2021 Influenza, High-dose Seasonal, Quadrivalent, Preservative Free Sunil Hernandez DPM Work Phone: [facility] 11-28-2020 pneumococcal conjuga te vaccine, 13 valent Sunil Hernandez DPM Work Phone: [facility] 08-18-2020 Moderna SARS-CoV-2 Vaccination Sunil Hernandez DPM Work Phone: [facility] 08-17-2020 Moderna SARS-CoV-2 Vaccination Sunil Hernandez DPM Work Phone: [facility] 07-21-2020 Moderna SARS-CoV-2 Vaccination Sunil Hernandez DPM Work Phone: [facility] 07-20-2020 Moderna SARS-CoV-2 Vaccination Sunil Mary DPM Work Phone: [facility] 04-24-2020 influenza, high dose seasonal, preservative-free Sunil Rusher DPM Work Phone: [facility] 04-24-2020 Influenza, High-dose Seasonal, Quadrivalent, Preservative Free Sunil Rusher DPM Work Phone: [facility] 05-07-2019 influenza, high dose seasonal, preservative-free Sunil Rusher DPM Work Phone: [facility] 05-07-2019 Influenza, High-dose Seasonal, Quadrivalent, Preservative Free Sunil Rusher DPM Work Phone: [facility] 04-08-2017 influenza, injectabl e, quadrivalent, preservative free Sunil Rusher DPM Work Phone: [facility] 09-04-2015 pneumococcal polysaccharide vaccine, 23 valent Sunil Rusher DPM Work Phone: [facility] 04-14-2015 influenza, high dose seasonal, preservative-free Sunil Rusher DPM Work Phone: [facility] Payers Date Payer Category Payer Private Health Insurance [employer] [id number] 2018 Commercial Indemnity [facility] [id number] 2018 Unknown [id number]. [id number] 2018 Unknown [id number] 2009 Medicare [id number]. [id number] 2009 Medicare [id number] 1945 Unknown [id number] 2.0.1.750093.3.579.2. 128 1945 Unknown [id number] 2.0.1.581035.3.579.2. 128 1945 Unknown [id number] 2.0.1.773545.3.579.2. 1285 1945 Unknown [id number] 2.0.1.167790.3.579.2. 128 1945 Unknown [id number] 2.1.931163.3.579.2. 128 1945 Unknown [id number] 2.840.1.862669.3.579.2. 128 1945 Unknown [id number] 2.840.1.304681.3.579.2. 125 1945 Unknown [id number] 2.840.1.869687.3.579.2. 1258 1945 Unknown [id number] 2.840.1.899829.3.579.2. 125 1945 Unknown [id number] 2.16840.1.927227.3.579.2. 125 1945 Unknown [id number] 2.16.840.1.307041.3.579.2. 125 1945 Unknown [id number] 2.16.840.1.233228.3.579.2. 1258 1945 Unknown [id number] 2.16840.1.838082.3.579.2. 125 1945 Unknown [id number] 2.16840.1.113834.3.579.2. 125 1945 Unknown [id number] 2.840.1.665929.3.579.2. 1258 1945 Unknown [id number] 2.840.1.621003.3.579.2. 1258 1945 Unknown [id number] 2.16840.1.196334.3.579.2. 1258 1945 Unknown [id number] 2.16840.1.052497.3.579.2. 1258 1945 Unknown [id number] 2.16840.1.932536.3.579.2. 1258 1945 Unknown [id number] 2.16840.1.065799.3.579.2. 1258 1945 Unknown [id number] 2.16840.1.869803.3.579.2. 125 1945 Unknown [id number] 2.16840.1.816271.3.579.2. 125 1945 Unknown [id number] 2.16840.1.998813.3.579.2. 125 1945 Unknown [id number] 2.16.840.1.991113.3.579.2. 1286 1945 Unknown [id number] 2.16840.1.707549.3.579.2. 1285 1945 Unknown [id number] 2.16840.1.582049.3.579.2. 1285 1945 Unknown [id number] 2.16840.1.204647.3.579.2. 1285 1945 Unknown [id number] 2.840.1.475131.3.579.2. 1285 1945 Unknown [id number] 2.840.1.723524.3.579.2. 1285 1945 Unknown [id number] 2.840.1.396270.3.579.2. 1285 1945 Unknown [id number] 2.840.1.636233.3.579.2. 1285 1945 Unknown [id number] .0.1.275092.3.579.2. 1285 1945 Unknown [id number] 2.840.1.642795.3.579.2. 1285 1945 Unknown [id number] .0.1.815512.3.579.2. 1285 1945 Unknown [id number] 2.840.1.677002.3.579.2. 1285 1945 Unknown [id number] .840.1.060935.3.579.2. 1285 1945 Unknown [id number] .840.1.650646.3.579.2. 1285 1945 Unknown [id number] .840.1.621110.3.579.2. 1285 1945 Unknown [id number] 2.840.1.679397.3.579.2. 1285 1945 Unknown [id number] 2.840.1.273724.3.579.2. 1285 1945 Unknown [id number] 2.16840.1.425452.3.579.2. 1285 1945 Unknown [id number] 2.16.840.1.485289.3.579.2. 1285 1945 Unknown [id number] 2.840.1.260489.3.579.2. 1285 1945 Unknown [id number] 2.840.1.374611.3.579.2. 1285 1945 Unknown [id number] 2.840.1.254276.3.579.2. 1285 1945 Unknown [id number] 2.840.1.424208.3.579.2. 1285 1945 Unknown [id number] 2.840.1.424146.3.579.2. 1285 1945 Unknown [id number] 2.840.1.096138.3.579.2. 1285 1945 Unknown [id number] 2.0.1.088830.3.579.2. 1285 1945 Unknown [id number] .840.1.948209.3.579.2. 1285 1945 Unknown [id number] .840.1.849947.3.579.2. 1285 1945 Unknown [id number] .840.1.290635.3.579.2. 1285 1945 Unknown [id number] 2.840.1.830268.3.579.2. 1285 1945 Unknown [id number] 2.840.1.451537.3.579.2. 1285 1945 Unknown [id number] 2.840.1.163459.3.579.2. 1285 1945 Unknown [id number] 2.840.1.700142.3.579.2. 1285 1945 Unknown [id number] 2.840.1.439567.3.579.2. 1285 1945 Unknown [id number] 2.840.1.582823.3.579.2. 1285 1945 Unknown [id number] 2.840.1.163604.3.579.2. 1285 1945 Unknown [id number] 2.840.1.478081.3.579.2. 1285 1945 Unknown [id number] 2.840.1.679653.3.579.2. 1285 1945 Unknown [id number] 2.0.1.672043.3.579.2. 1285 1945 Unknown [id number] 2.840.1.631158.3.579.2. 1285 1945 Unknown [id number] 2.0.1.552359.3.579.2. 1285 1945 Unknown [id number] 2.840.1.394990.3.579.2. 1285 1945 Unknown [id number] 2.0.1.546830.3.579.2. 1285 1945 Unknown [id number] 2.840.1.307647.3.579.2. 1285 1945 Unknown [id number] .840.1.287478.3.579.2. 1285 1945 Unknown [id number] 2.840.1.867906.3.579.2. 1285 1945 Unknown [id number] 2.840.1.371829.3.579.2. 1285 1945 Unknown [id number] 2.840.1.979159.3.579.2. 1285 1945 Unknown [id number] 2.840.1.363573.3.579.2. 1285 1945 Unknown [id number] 2.840.1.155891.3.579.2. 1285 1945 Unknown [id number] 2.840.1.338262.3.579.2. 1285 1945 Unknown [id number] 2.840.1.243991.3.579.2. 1285 1945 Unknown [id number] 2.840.1.351051.3.579.2. 1285 1945 Unknown [id number] 2.840.1.334953.3.579.2. 1285 1945 Unknown [id number] 2.840.1.620562.3.579.2. 1285 1945 Unknown [id number] 2.840.1.286908.3.579.2. 1285 1945 Unknown [id number] 2.840.1.551429.3.579.2. 1285 1945 Unknown [id number] 2.840.1.046303.3.579.2. 1285 1945 Unknown [id number] 2.840.1.725703.3.579.2. 1285 1945 Unknown [id number] 2.840.1.869091.3.579.2. 1285 1945 Unknown [id number] 2.840.1.491361.3.579.2. 1285 1945 Unknown [id number] 2.840.1.685176.3.579.2. 1285 1945 Unknown [id number] 2.16.840.1.652103.3.579.2. 128 1945 Unknown [id number] 2.16.840.1.647337.3.579.2. 1285 1945 Unknown [id number] 2.16.840.1.578675.3.579.2. 128 1945 Unknown [id number] 2.16.840.1.878985.3.579.2. 1285 1945 Unknown [id number] 2.16.840.1.114927.3.579.2. 128 1945 Unknown [id number] 2.16.840.1.743170.3.579.2. 128 1945 Unknown [id number] 2.16.840.1.246224.3.579.2. 1285 1945 Unknown [id number] 2.16.840.1.557046.3.579.2. 1285 1945 Unknown [id number] 2.16.840.1.623611.3.579.2. 1285 1945 Unknown [id number] 2.16.840.1.115862.3.579.2. 1285 1945 Unknown [id number] 2.16840.1.421664.3.579.2. 1286 Social History Date Type Detail Facility Start: 12-05-2022 End: 11-06-2024 Tobacco smoking status [facility] Ex-smoker [facility] Start: 06-23-1962 End: 06-23-1974 History of tobacco use Current smoker [facility] Start: 06-23-1962 End: 06-23-1974 History of tobacco use Cigarette Smoker [facility] Start: 12-05-2022 End: 11-06-2024 Tobacco use and exposure Smokeless tobacco non-user [facility] Start: 06-05-2023 End: 10-24-2024 Alcohol intake Lifetime non-drinker (finding) [facility] Start: 07-18-2020 End: 06-14-2023 History of Social function [facility] Start: 07-18-2020 End: 12-04-2022 Humiliation, Afraid, Rape, and Kick questionnaire [HARK] [facility] Within the last year , have you been afraid of your partner or ex-partner? No [facility] Are you now , , , , never or living with a partner? Refused [facility] How often to you hav e a drink containing alcohol? Monthly or less [facility] How many standard dr inks containing alcohol do you have on a typical day? 1 or 2 [facility] How often do you hav e 6 or more drinks on 1 occasion? Never [facility] How hard is it for y ou to pay for the very basics like food, housing, medical care, and heating Not hard at all [facility] Do you feel stress - tense, restless, nervous, or anxious, or unable to sleep at night because your mind is troubled all the time - these days [OSQ] Not at all [facility] (I/We) worried whemelissa er (my/our) food would run out before (I/we) got money to buy more. Never true [facility] Start: 12-05-2022 Alcohol Comment Caffeine: 1-2 cups/day coffee [facility] Start: 1945 Sex Assigned At Not on file [facility] Start: 12-22-2018 Gender identity Identifies as male gender (finding) [facility] Are you now , , , , never or living with a partner? [facility] Do you feel stress - tense, restless, nervous, or anxious, or unable to sleep at night because your mind is troubled all the time - these days [OSQ] To some extent [facility] Start: 06-09-2024 End: 11-16-2024 Alcoholic beverage intake Current non-drinker of alcohol (finding) [facility] Start: 1945 Sex assigned at Male [facility] Start: 01-26-2015 Sex Male (finding) [facility] Start: 04-03-2023 Sexual orientation Heterosexual (finding) [facility] How often do you nee d to have someone help you when you read instructions, pamphlets, or other written material from your doctor or pharmacy [SILS] Sometimes [facility] Start: 11-10-2024 Alcohol Comment rare -yearly [facility] Medical Equipment Procedure Code Equipment Code Equipment Origin al Text Equipment Identifier Dates [id number] Start: 01-21-2023 End: 11-15-2024 1 each by Other route 1 (one) time each day at the same time. [id number] Start: 11-13-2022 1 each by Other route in the morning and 1 each at noon and 1 each in the evening and 1 each before bedtime. Take before meals. [id number] Start: 02-26-2024 Use 4 x daily. [id number] Start: 02-19-2024 End: 02-18-2025 use 1 LANCET to TEST BLOOD SUGAR QID before meals and HS [id number] Start: 08-17-2024 1 Needle in the morning and 1 Needle at noon and 1 Needle in the evening and 1 Needle before bedtime. [id number] Start: 08-19-2024 1 each by Other route in the morning and 1 each at noon and 1 each in the evening and 1 each before bedtime. Take before meals. [id number] Start: 08-17-2024 End: 11-15-2024 Goals Date Patient Goal Desired Activity /State Personal health goal Personal health goal Comment on above: Formatting of this n ote might be different from the original. Evaluation of progress towards goal: Patient and agree that he needs his strength to improve before can safely care for him at home. Personal health goal Comment on above: Formatting of this n ote might be different from the original. Evaluation of progress towards goal: Patient stated he will review the IPR list and discuss the list with . Personal health goal Comment on above: Formatting of this n ote might be different from the original. Evaluation of progress towards goal: safe discharge Functional Status Date Assessment Result Facility 10-15-2024 Patient Health [facility] ionnaire 2 item (PHQ-2) [Reported] [facility] Clinical Notes 07-23-2023 to 12-10-2024 Telephone Encounter - Elly Wu - 12/10/2024 11:23 AM EDTTelephone Encounter - Elly Wu - 12/10/2024 11:23 AM EDTTelephone Encounter - Denver Melton - 11/10/2024 1:51 PM EDTPatient Instructions Note Date & Type Note Facility 12-10-2024 Miscellaneous Notes Patient appeared on 30-day OD list, but sql report writer notes that orders were sent to [facility] for INR draw on 11/11. documented in this encounter [facility] 12-10-2024 Telephone encounter Note Patient appeared on 30-day OD list, but sql report writer notes that orders were sent to [facility] for INR draw on 11/11. [facility] 11-10-2024 Telephone encounter Note Med called asking for office notes regarding cpap supply request form - faxed on 10/19/24- ty [facility] 11-10-2024 Miscellaneous Notes [facility] Med called asking for office notes regarding cpap supply request form - faxed on 10/19/24- ty documented in this encounter [facility] 11-10-2024 Miscellaneous Notes Contract: 16 [facility] Bridget calling for consult for peg placement. Room A825. Contract: 16 Sent numeric page to Resident/PA to call Bridget. documented in this encounter [facility] 11-10-2024 Telephone encounter Note Contract: 16 [facility] Bridget calling for consult for peg placement. Room A825. [facility] 11-10-2024 Telephone encounter Note Contract: 16 Sent numeric page to Resident/PA to call Bridget. 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 To be paged out at 7am [facility] 11-04-2024 History of Present illness Narrative iNki from [facility] called P:[phone] INR today 2.4 Niki reports patient started Zithromax 250 mg 2 tablets on 11/02 and then 1 tablet daily for 4 days. Niki reports no diet/health changes, no missed or extra doses, no bleeding or bruising, no upcoming procedures. F/U 11/11 or Jobst directed Dose reported 7.5 mg Ramos// and 5 mg AOD's. Call patients Mar at [phone] with dosing Fax orders to [phone] Result received from [facility]. INR 2.4 (goal range: 2.0-3.0). Spoke to patient's , Mar who reports patient findings: Taking warfarin dosing as documented. Missed or extra doses of warfarin: yes, missed dose on 10/27/24 but reports no other missed doses after that day [facility] Changes to medications: yes, patient is currently taking a z-jan Changes to lifestyle (diet / alcohol / smoking / activity): No Recent emergency department visit / hospitalization / health changes / new contraindication to current anticoagulant: No Signs/symptoms of bruising/bleeding or clotting: No Upcoming procedures: No Anticoagulant prescription needed: No Seen referring provider in the last year Duration of therapy reviewed Assessment: INR is remaining stable in therapeutic range on current warfarin regimen. Plan: Patient instructed to continue warfarin 7.5 mg on Fri, , ; 5 mg all other days. Check INR in 1 week(s). Order faxed to [facility]. Patient and/or caregiver verbalizes understanding of anticoagulant dosing instructions and information discussed. Dosing regimen, counseling, and follow-up INR redraw date were provided. Patient reminded to call with questions or any medication changes. Patient instructed to seek medical attention if any major bleeding/bleeding that persists or worsens. Lucy Ford PharmD 11/04/24 [id number] documented in this encounter [facility] 11-02-2024 History of Present illness Narrative Images from the original note were not included. Sheeba Adames is a 79 y.o. male presents with chief complaint of Sore Throat HPI: Sore Throat Patient complains of sore throat. Associated symptoms include sore throat. Onset of symptoms was 7 days ago, and have been unchanged since that time. He is drinking moderate amounts of fluids. He has not had recent close exposure to someone with proven streptococcal pharyngitis. Sore Throat Associated symptoms include congestion. SUBJECTIVE: MEDICATIONS: Current Outpatient Medications Medication Instructions Accu-Chek Softclix Lancets lancets use 1 LANCET to TEST BLOOD SUGAR QID before meals and HS acetaminophen (TYLENOL) 650 mg, Every 4 hours PRN albuterol HFA 90 mcg/act inhaler 2 puffs, Inhalation, Every 4 hours PRN aspirin 81 MG EC tablet 1 tablet DAILY (route: oral) atorvastatin (Lipitor) 80 MG tablet Every 24 hours bumetanide (BUMEX) 1 mg, 2 times daily Continuous Glucose Retort Furnace Operator (FreeStyle Cathy 3 [place]) device No dose, route, or frequency recorded. Continuous Glucose Sensor (FreeStyle Cathy 3 Sensor) misc 1 Device, Every 14 days dapagliflozin (FARXIGA) 10 mg, Daily RT Elastic Bandages & Supports (Tubular Stretch Bandage) misc Size E. Wash and dry legs daily, apply moisturizer. Apply to tubular bandage to bilateral lower legs daily, may remove at bedtime. Ferrous Sulfate Dried ER 160 (50 Fe) MG tablet controlled-release 2 tablets, Daily glucose blood (Accu-Chek Irina Plus) test strip 1 each, Other, 4 times daily before meals and nightly insulin aspart, with niacinamide, (Fiasp FlexTouch) 100 UNIT/ML injection SSI TID before [id number] 2u, 201-250 4u, 251-300 6u, 301-350 8u, 351-400 10u. SSI HS-201-250 2u, 251-300 4u, 301-350 6u, 351-400 8u Insulin Pen Needle (Safety Pen Bon [place]ier) 30G X 8 MM [facility] 1 Needle, Does not apply, 4 times daily losartan (COZAAR) 25 mg, Daily magnesium oxide (MAG-OX) 400 mg, 2 times daily metoprolol succinate XL (TOPROL-XL) 50 mg, Daily nitroglycerin (Nitrostat) 0.4 MG SL tablet Sublingual pantoprazole (PROTONIX) 40 mg, Oral, Daily before breakfast, Do not crush, chew, or split. PARoxetine (PAXIL) 20 mg, Oral, Every morning spironolactone (ALDACTONE) 12.5 mg, Daily sucralfate (CARAFATE) 1 g, Oral, 4 times daily before meals and nightly valsartan (DIOVAN) 40 mg, Daily RT warfarin (Coumadin) 5 MG tablet Every 24 hours I have reviewed and reconciled the history and medication list with the patient today. REVIEW OF SYMPTOMS: Review of Systems Constitutional: Positive for fatigue. HENT: Positive for congestion, sinus pressure and sore throat. Cardiovascular: Negative for palpitations. Gastrointestinal: Negative. Genitourinary: Negative. Musculoskeletal: Negative. Skin: Negative. Neurological: Negative. OBJECTIVE: Visit Vitals BP 122/78 Pulse 78 Temp 98.8 F Resp 18 Ht 6' Wt 215 lb SpO2 98% BMI 29.16 kg/m Smoking Status Former BSA 2.23 m Physical Exam Vitals and nursing note reviewed. Constitutional: Appearance: He is well-developed. HENT: Head: Normocephalic. Right Ear: Hearing normal. A middle ear effusion is present. Left Ear: Hearing normal. A middle ear effusion is present. Tympanic membrane is injected. Nose: Congestion and rhinorrhea present. Rhinorrhea is purulent. Mouth/Throat: Mouth: Mucous membranes are moist. Pharynx: Posterior oropharyngeal erythema present. No oropharyngeal exudate. Tonsils: No tonsillar exudate. Cardiovascular: Rate and Rhythm: Normal rate and regular rhythm. Heart sounds: Normal heart sounds. Pulmonary: Effort: Pulmonary effort is normal. Breath sounds: Examination of the right-upper field reveals decreased breath sounds. Examination of the left-upper field reveals decreased breath sounds. Examination of the right-lower field reveals rhonchi. Examination of the left-lower field reveals rhonchi. Decreased breath sounds and rhonchi present. Abdominal: General: Abdomen is flat. There is no distension. Tenderness: There is no abdominal tenderness. Musculoskeletal: Cervical back: Neck supple. Lymphadenopathy: Cervical: Right cervical: No superficial cervical adenopathy. Left cervical: No superficial cervical adenopathy. Skin: General: Skin is warm. Capillary Refill: Capillary refill takes less than 2 seconds. Neurological: General: No focal deficit present. Mental Status: He is alert and oriented to person, place, and time. ASSESSMENT AND PLAN: Assessment/Plan Diagnoses and all orders for this visit: Acute left otitis media - azithromycin (Zithromax) 250 MG tablet; Take 2 tablets (500mg) by mouth on day 1, then 1 tablet (250mg) by mouth on days 2-5. Bronchitis - azithromycin (Zithromax) 250 MG tablet; Take 2 tablets (500mg) by mouth on day 1, then 1 tablet (250mg) by mouth on days 2-5. documented in this encounter [facility] 10-28-2024 History of Present illness Narrative Casandra from [facility] called P:[phone] INR today 2.2 Casandra reports no med/diet/health changes, no missed or extra doses, no bleeding or bruising, no upcoming procedures. Dose reported 7.5 mg Ramos// and 5 mg AOD's. F/U 11/04 if INR remains in goal range has to schedule 2 weeks out, as Medicare will not pay for weekly checks. OK to call the patient with dosing Fax orders to [phone] Result received from [facility]. INR 2.2 today (goal range: 2.0-3.0). Left voicemail for patient's , Mar, at [phone] with the following instructions including INR result: Assessment: INR is remaining stable in therapeutic range on current warfarin regimen. Plan: Patient instructed to continue warfarin 7.5 mg on Fri, , Thurs; 5 mg all other days. Check INR in 1 week(s). Order faxed to [facility]. Patient instructed to return call to discuss INR result, anticoagulant dosing instructions, and follow-up INR redraw date as well as confirm current warfarin regimen and assess any recent changes in medications, lifestyle (diet / alcohol / smoking / activity), or health. Patient also instructed to report any upcoming procedures or signs/symptoms of bleeding or clotting. Dulce Sommer RPH 10/28/24 1617 [facility] Miscellaneous Notes ..Called pt n/a. Lm to call back in office to schedule DIRECTOR OF MUSIC appt (Marlene) DX Anklylosing Spondylitis documented in this encounter [facility] 10-28-2024 Telephone encounter Note ..Called pt n/a. Lm to call back in office to schedule DIRECTOR OF MUSIC appt (Churchill) DX Anklylosing Spondylitis [facility] 10-27-2024 Miscellaneous Notes Pt. Unable to leave a urine sample for fish/cytology in office today. Take home bag was given to his at checkout to collect at home and take to the hospital to send out. Directions explained as well. documented in this encounter [facility] 10-27-2024 Telephone encounter Note Pt. Unable to leave a urine sample for fish/cytology in office today. Take home bag was given to his at checkout to collect at home and take to the hospital to send out. Directions explained as well. [facility] 10-27-2024 Miscellaneous Notes Cystoscopy left retrograde pyelogram local. Churchill. Diagnosis history of bladder carcinoma. Some fullness bilaterally as well. Setup in a few months. documented in this encounter [facility] 10-27-2024 Telephone encounter Note Cystoscopy left retrograde pyelogram local. Churchill. Diagnosis history of bladder carcinoma. Some fullness bilaterally as well. Setup in a few months. [facility] 10-27-2024 History of Present illness Narrative Images from the original note were not included. [address] [place] [address] [address] [facility] [address] Patient: Sheeba Adames Date of : 1945 Encounter Date: 10/27/2024 History of Present Illness: The patient is a 79 y.o. male, an established patient, and is here for Chief Complaint Patient presents with Follow-up . History of urinary incontinence history bladder cancer history some mild dilation bilaterally. Sensory last saw him at the time of cystoscopy patients who have a full. Broken rib. Hemothorax. Prolonged hospital stay. Still has some lower urinary tract symptomatology does have what sounds potentially urge incontinence. Urinalysis today: No results for input(s): EXTPOCURCO , EXTPOCURCH , EXTPOCAPP , EXTPOCURBS , EXTPOCURBIL , EXTPOCUKET , EXTPOCUSPG , EXTPOCUHGB , EXTPOCUPRO , EXTPOCUURO , EXTPOCULEU , EXTPOCUNIT , EXTPOCUWBC , EXTPOCUBLD , EXTPOCURBC , EXTPOCUCRY , EXTPOCUBAC , EXTPOCUTREP , EXTPOCUPH , EXTPOCULEE in the last 72 hours. Last BUN and creatinine: Lab Results Component Value Date BUN 34 (H) 09/06/2024 Lab Results Component Value Date CREATININE 1.36 (H) 09/06/2024 Last PSA: Lab Results Component Value Date PSA 3.37 03/16/2024 PSA 6.28 (H) 04/09/2023 PSA 6.49 (H) 07/22/2022 PSA 6.29 (H) 01/07/2022 PSA 6.690 11/30/2021 No results found for: PROSTATICSP Past Medical, Family, and Social History Update: The following portions of the patient's history were reviewed and updated as appropriate: allergies, current medications, past family history, past medical history, past social history, past surgical history and problem list. Past Medical History: Diagnosis Date Allergic Anemia Arthritis Atrial fibrillation ([facility] Back pain Cataract CHF (congestive heart failure) ([facility]) Coronary artery disease 3 stents 2004 Diabetes mellitus type 2, controlled ([facility]) GERD (gastroesophageal reflux disease) Hyperlipidemia Hypertension Peptic ulceration Pneumonia Presence of coronary angioplasty implant and graft Recurrent UTI Rib fractures 08/24/2024 Shortness of breath Skin cancer and bladder Stroke ([facility]) TIA (transient ischemic attack) Urinary frequency Visual impairment Past Surgical History: Procedure Laterality Date APPENDECTOMY BACK SURGERY BIOPSY BLADDER N/A 08/27/2023 Performed by Fabián Bishop MD at [facility] CARDIAC CATHETERIZATION CAROTID STENT 3 valves COLONOSCOPY DIAGNOSTIC / SCREENING N/A 01/02/2024 Performed by Anni Lau MD at [facility] CYSTOSCOPY N/A 08/27/2023 Performed by Fabián Bishop MD at [facility] CYSTOSCOPY N/A 08/19/2022 Performed by Fabián Bishop MD at [facility] CYSTOSCOPY N/A 11/12/2021 Performed by Fabián Bishop MD at [facility] CYSTOSCOPY N/A 05/14/2021 Performed by Fabián Bishpo MD at [facility] CYSTOSCOPY N/A 05/03/2020 Performed by Fabián Bishop MD at [facility] CYSTOSCOPY N/A 12/13/2019 Performed by Fabián Bishop MD at [facility] CYSTOSCOPY N/A 03/25/2018 Performed by Fabián Bishop MD at [facility] CYSTOSCOPY N/A 08/04/2017 Performed by Fabián Bishop MD at [facility] CYSTOSCOPY DILATATION URETHRAL N/A 08/27/2023 Performed by Fabián Bishop MD at [facility] CYSTOSCOPY DILATATION URETHRAL N/A 03/03/2023 Performed by Fabián Bishop MD at [facility] CYSTOSCOPY DILATATION URETHRAL N/A 11/12/2021 Performed by Fabián Bishop MD at [facility] CYSTOSCOPY DILATATION URETHRAL N/A 05/14/2021 Performed by Fabián Bsihop MD at [facility] CYSTOSCOPY DILATATION URETHRAL N/A 12/13/2019 Performed by Fabián Bishop MD at [facility] CYSTOSCOPY DILATATION URETHRAL Bilateral 09/23/2018 Performed by Fabián Bishop MD at [facility] CYSTOSCOPY DILATATION URETHRAL BULBAR N/A 08/19/2022 Performed by Fabián Bishop MD at [facility] CYSTOSCOPY RETROGRADE PYELOGRAM Bilateral 03/03/2023 Performed by Fabián Bishop MD at [facility] CYSTOSCOPY RETROGRADE PYELOGRAM Bilateral 11/15/2020 Performed by Fabián Bishop MD at [facility] CYSTOSCOPY RETROGRADE PYELOGRAM Bilateral 04/21/2019 Performed by Fabián Bishop MD at [facility] CYSTOSCOPY RETROGRADE PYELOGRAM Bilateral 01/13/2017 Performed by Fabián Bishop MD at [facility] CYSTOSCOPY RETROGRADE PYELOGRAM [facility] solution Right 08/16/2024 Performed by Fabián Bishop MD at [facility] CYSTOSCOPY W/ INTERNAL URETHROTOMY 08/14/2015 stent removal CYSTOSCOPY WITH DILATATION N/A 05/03/2020 Performed by Fabián Bishop MD at [facility] ESOPHAGOGASTRODUODENOSCOPY DIAGNOSTIC N/A 03/05/2024 Performed by Anni Lau MD at [facility] ESOPHAGOGASTRODUODENOSCOPY DIAGNOSTIC N/A 01/02/2024 Performed by Anni Lau MD at [facility] EXTERNAL EAR SURGERY left ear, cancer removal EYE SURGERY HERNIA REPAIR february 2010 and 2012 JOINT REPLACEMENT LASIK PROSTATE SURGERY SKIN BIOPSY SPINE SURGERY TONSILLECTOMY TOTAL KNEE ARTHROPLASTY TRANSURETHRAL RESECTION OF BLADDER TUMOR 07/05/2015 TRANSURETHRAL RESECTION OF PROSTATE Family History Problem Relation Age of Onset Heart failure Father No Known Problems Mother Current Outpatient Medications Medication Sig Dispense Refill acetaminophen (TYLENOL) 325 mg tablet Take 2 tablets (650 mg total) by mouth every 6 (six) hours as needed for fever, headaches or pain. 30 tablet 0 aspirin 81 mg Take 1 tablet (81 mg total) by mouth in the morning. 30 tablet 11 atorvastatin (LIPITOR) 80 mg tablet Take 1 tablet (80 mg total) by mouth in the morning. Complete lipid panel for additional refills. 90 tablet 0 bumetanide (BUMEX) 1 mg tablet Take 1 tablet (1 mg total) by mouth 2 (two) times a day. Take extra 1 mg tab in AM when weight is 236 or greater or swelling 270 tablet 3 dapagliflozin propanediol (FARXIGA) 10 mg tablet Take 1 tablet (10 mg total) by mouth in the morning. 90 tablet 3 ferrous sulfate (SLOW FE) 137 mg (45 mg iron) tablet extended release Take 90 mg by mouth in the morning. FIASP FLEXTOUCH U-100 INSULIN 100 unit/mL (3 mL) insulin pen guaiFENesin (MUCINEX) 600 mg tablet extended release 12hr Take 1 tablet (600 mg total) by mouth every 12 (twelve) hours. magnesium oxide 500 mg tablet Take 1 tablet (500 mg total) by mouth in the morning and 1 tablet (500 mg total) before bedtime. metoprolol succinate XL (TOPROL XL) 50 mg 24 hr tablet Take 1 tablet (50 mg total) by mouth in the morning. 90 tablet 2 nitroglycerin (NITROSTAT) 0.[address] 1 tablet (0.4 mg total) under the tongue every 5 (five) minutes as needed for chest pain (for chest pain). 25 tablet 3 pantoprazole (PROTONIX) 40 mg EC tablet Take 1 tablet (40 mg total) by mouth every morning before breakfast. PARoxetine (PAXIL) 20 mg tablet Take 1 tablet (20 mg total) by mouth every morning. spironolactone (ALDACTONE) 25 mg tablet Take 1 tablet (25 mg total) by mouth in the morning. 90 tablet 1 sucralfate (CARAFATE) 1 gram tablet Take 1 tablet (1 g total) by mouth in the morning and 1 tablet (1 g total) at noon and 1 tablet (1 g total) in the evening and 1 tablet (1 g total) before bedtime. valsartan (DIOVAN) 40 mg tablet Take 1 tablet (40 mg total) by mouth in the morning. 30 tablet 11 warfarin (COUMADIN) 5 mg tablet TAKE ONE AND ONE HALF TO TWO TABLETS BY MOUTH DAILY DIRECTED 180 tablet 3 No current facility-administered medications for this visit. (All medications reviewed and updated by provider since last office visit or hospitalization) Allergies: Celecoxib, Niacin, and Prasugrel Tobacco History: Social History Tobacco Use Smoking Status Former Current packs/day: 1.00 Types: Cigarettes Smokeless Tobacco Never (If patient a smoker, smoking cessation counseling offered) Social History: Social History Substance and Sexual Activity Alcohol Use No Review of Systems: General: Negative for chills and fever. Cardiovascular: Negative for chest pain and shortness of breath. Gastrointestinal: Positive for nausea -per HPI Physical Exam: BP 112/70 Pulse 55 Ht 182.9 cm (6') Wt 101.2 kg (223 lb) BMI 30.24 kg/m Nontoxic. Uses a walker. Frail. Minimal mobility. Assessment and Plan: Sheeba was seen today for follow-up. Diagnoses and all orders for this visit: Malignant neoplasm of overlapping sites of bladder ([facility]) - Urovysion for bladder; Future - Cytology non-gynecologic Elevated PSA Problem List High Elevated PSA Overview ==== 10/27/2024 ==== age and comorbidites LE [...] Extensive comorbidities history of stroke TIA contemplate anti-platelet agent Plavix. Spring 2014 PSA 4.7. Rectal exam negative. 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 Neurosurgeon wanted off of anti-platelet but wool classer wanted him to stay on Plavix secondary to heart stent. August 2016 PSA 7.39 free and total ratio of 28% GARCIA neg ## elevated 4K Score 29% probability of Erika 7 or higher disease ==== 02/11/2018 ==== MRI PIRADS category 2 excellent finding. This point I do not feel compelling reason to take him off of his Plavix Bladder cancer ([facility]) - Primary Overview ==== 10/27/2024 ==== ### cysto with right [...] a PVR today. Will do a cystoscopy [facility] bladder solution as well. Will move that [...] biopsy by both ureteral orifi. Pathology sent [facility]. Possible very early low-grade recurrence fish [...] -biopsy fall 2014 initially here= carcinoma situ.. [facility] diagnosed as dysplasia. -TURBT with stent left ureteral orifice. Area previous biopsy low-grade carcinoma final pathology of TUR was dysplasia. Stent removed September 2015. Relevant Orders Urovysion for bladder Cytology non-gynecologic Follow-up: Set up OR Urine for fish and cytology Fabián Bishop MD Independent visualization of tracing, image or specimen was made: previous CT scan and rrp--several---some hydro from [id number] Minor surgical procedure with identified risk factors --age, frail, renal insuffiencey, DM This note was created with the assistance of a speech recognition program. While intending to generate a timely document that accurately reflects the content of the visit, no guarantee can be provided that every grammatical or spelling mistake has been or will be identified or corrected. Thank you for your understanding. documented in this encounter [facility] 10-26-2024 Miscellaneous Notes Last OV 08/19/24 No recent lipids - order pended and mychart sent to pt to complete documented in this encounter [facility] 10-26-2024 Telephone encounter Note Last OV 08/19/24 No recent lipids - order pended and mychart sent to pt to complete [facility] 10-22-2024 History of Present illness Narrative Casandra from [facility] (P: [phone]) LVM yesterday at 4:46 p.m stating patient's INR is 2.2. Current Warfarin dose: 7.5 mg Friday, Friday, and 5 mg AOD. Casandra reports on medication or diet changes. Please contact patient's , Mar with dosing at [phone]. Fax order to [facility] office at [phone]. Result received from [facility]. INR 2.2 on 10/21/24 (goal range: 2.0-3.0). Spoke to patient's Mar who reports patient findings: Taking warfarin dosing as documented. Missed or extra doses of warfarin: No Changes to medications: No Changes to lifestyle (diet / alcohol / smoking / activity): No Recent emergency department visit / hospitalization / health changes / new contraindication to current anticoagulant: No Signs/symptoms of bruising/bleeding or clotting: No Upcoming procedures: No Anticoagulant prescription needed: No Seen referring provider in the last year Duration of therapy reviewed Assessment: INR is remaining stable in therapeutic range on current warfarin regimen. Plan: Patient instructed to continue warfarin 7.5mg Sun, , Th; 5mg all other days. Check INR in 1 week(s). Order faxed to [facility] Patient and/or caregiver verbalizes understanding of anticoagulant dosing instructions and information discussed. Dosing regimen, counseling, and follow-up INR redraw date were provided. Patient reminded to call with questions or any medication changes. Patient instructed to seek medical attention if any major bleeding/bleeding that persists or worsens. Shabana Trejo RPH 10/22/24 0856 documented in this encounter [facility] 10-15-2024 History of Present illness Narrative Images from the original note were not included. Sheeba Adames is a 79 y.o. male presents with chief complaint of follow up on rib pain. HPI: HPI History of Present Illness The patient presents for evaluation of rib pain, diabetes mellitus, atrial fibrillation, bladder cancer, and wound care. He is accompanied by his son. Persistent soreness in the ribs is reported, particularly across the back. The pain is constant but can be alleviated by finding the right position. A chest tube was in place for 2 weeks following a fall in the bathroom, which caused significant injury. Home health care, including physical therapy, is being received and is found to be beneficial. A weight loss of 20 pounds occurred during the hospital stay and detention admission. Blood glucose levels have been fluctuating, with readings ranging from 107 to 180. Insulin administration varies between 2 to 4 units, typically 2 units. An annual eye examination was last conducted on 04/20/2024 at [facility]. A long-standing history of bladder cancer is noted, with ongoing follow-up. Incontinence has been an issue since last year. Two open wounds on the buttocks are present, showing improvement since Friday. Triad cream is being applied to the wounds, which experienced bleeding on Friday. Medihoney is also being used for wound care. A history of atrial fibrillation is noted, with current Coumadin therapy. The INR was recorded as 2.3 yesterday. Difficulty swallowing pills, particularly Carafate, is reported. Halving the pill due to its size has caused throat irritation. Medications include Carafate, Lipitor, and Bumex. SUBJECTIVE: MEDICATIONS: Current Outpatient Medications Medication Instructions Accu-Chek Softclix Lancets lancets use 1 LANCET to TEST BLOOD SUGAR QID before meals and HS acetaminophen (TYLENOL) 650 mg, Every 4 hours PRN albuterol HFA 90 mcg/act inhaler 2 puffs, Inhalation, Every 4 hours PRN aspirin 81 MG EC tablet 1 tablet DAILY (route: oral) atorvastatin (Lipitor) 80 MG tablet Every 24 hours bumetanide (BUMEX) 1 mg, 2 times daily Continuous Glucose Retort Furnace Operator (FreeStyle Cathy 3 [place]) device No dose, route, or frequency recorded. Continuous Glucose Sensor (FreeStyle Cathy 3 Sensor) misc 1 Device, Every 14 days dapagliflozin (FARXIGA) 10 mg, Daily RT Elastic Bandages & Supports (Tubular Stretch Bandage) misc Size E. Wash and dry legs daily, apply moisturizer. Apply to tubular bandage to bilateral lower legs daily, may remove at bedtime. Ferrous Sulfate Dried ER 160 (50 Fe) MG tablet controlled-release 2 tablets, Daily glucose blood (Accu-Chek Irina Plus) test strip 1 each, Other, 4 times daily before meals and nightly insulin aspart, with niacinamide, (Fiasp FlexTouch) 100 UNIT/ML injection SSI TID before [id number] 2u, 201-250 4u, 251-300 6u, 301-350 8u, 351-400 10u. SSI HS-201-250 2u, 251-300 4u, 301-350 6u, 351-400 8u Insulin Pen Needle (Safety Pen [place]ier) 30G X 8 MM misc 1 Needle, Does not apply, 4 times daily losartan (COZAAR) 25 mg, Daily magnesium oxide (MAG-OX) 400 mg, 2 times daily metoprolol succinate XL (TOPROL-XL) 50 mg, Daily nitroglycerin (Nitrostat) 0.4 MG SL tablet Sublingual pantoprazole (PROTONIX) 40 mg, Oral, Daily before breakfast, Do not crush, chew, or split. PARoxetine (PAXIL) 20 mg, Oral, Every morning spironolactone (ALDACTONE) 12.5 mg, Daily sucralfate (CARAFATE) 1 g, Oral, 4 times daily before meals and nightly valsartan (DIOVAN) 40 mg, Daily RT warfarin (Coumadin) 5 MG tablet Every 24 hours I have reviewed and reconciled the history and medication list with the patient today. REVIEW OF SYMPTOMS: Review of Systems OBJECTIVE: Visit Vitals Ht 6' Wt 215 lb 3.2 oz BMI 29.19 kg/m Smoking Status Former BSA 2.23 m Physical Exam Vitals and nursing note reviewed. Constitutional: Appearance: Normal appearance. Cardiovascular: Rate and Rhythm: Normal rate. Rhythm irregular. Pulses: Normal pulses. Heart sounds: Normal heart sounds. Pulmonary: Effort: Pulmonary effort is normal. Breath sounds: Decreased air movement present. Comments: Decreased in bases. Pain with palpation in the lower posterior ribs. Musculoskeletal: Cervical back: Normal range of motion and neck supple. Neurological: Mental Status: He is alert. ASSESSMENT AND PLAN: Assessment & Plan 1. Rib pain. - Reports persistent soreness in the ribs, especially across the back, which worsens with certain positions. - Chest x-ray from 09/14/2024 showed fluid on both sides and atelectasis, but improvement from previous hospital x-rays. - Chest x-ray will be ordered today to evaluate the current status. - Tylenol recommended for pain management. 2. Diabetes Mellitus. - Blood sugar levels have been fluctuating, with readings between 107 and 180. - Currently taking 2-4 units of insulin as needed, mostly 2 units. A1c was 8 at the beginning of 08/2024. - Due for a urine test and an eye exam; last eye exam was on 04/20/2024. - Orders for blood work, including cholesterol, blood count, kidney function, and electrolytes, will be placed. 3. Atrial Fibrillation. - Currently taking Coumadin with a recent INR of 2.3. - Continue current medication and monitoring. - Blood pressure and oxygen levels are stable. 4. Bladder Cancer. - Has had bladder cancer for several years and is following up with specialists. - No new symptoms reported. - Continues to experience some incontinence. 5. Wound care. - Two open areas being managed at home with home health care assistance. - Wounds have shown improvement since Friday. - Medihoney and Triad cream are being used for wound care. - Home health will continue to monitor the wounds. Further intervention will be necessary if the condition worsens. Follow-up The patient will follow up in 2 months or earlier if necessary. Assessment/Plan Problem List Items Addressed This Visit Paroxysmal atrial fibrillation (CMS/HCC) Type 2 diabetes mellitus with diabetic neuropathy, unspecified (CMS/HCC) Relevant Orders Comprehensive metabolic panel (Completed) Lipid panel (Completed) Microalbumin / creatinine urine ratio Rib fractures Other Visit Diagnoses Pleural effusion, bilateral - Primary Relevant Orders XR chest 2 views (Completed) Anemia, unspecified type Relevant Orders CBC and differential (Completed) Pressure injury of left buttock, stage 1 documented in this encounter [facility] 10-14-2024 History of Present illness Narrative Niki from [facility] called (P: [phone]). Today, INR is 2.3. Current Warfarin dose: 5 mg daily. Niki reports no med/diet/health changes, no missed or extra doses, no bleeding or bruising, no upcoming procedures. Next nursing visit: 10/18, 10/21. Please contact patient's , Mar, with dosing. Fax order to [facility] at [phone]. Result received from Martín. INR 2.3 (goal range: 2.0-3.0). Left voicemail for patient at [phone] with the following instructions including INR result: Assessment: INR is remaining stable in therapeutic range on current warfarin regimen. Has had 42.5 mg over the last week so will plan to replicate this dose. Plan: Patient instructed to decrease to warfarin 7.5 mg Fri, , and ur, 5 mg all other days of the week. Check INR in 1 week(s). Order faxed to Mart[facility]. Patient instructed to return call to discuss INR result, anticoagulant dosing instructions, and follow-up INR redraw date as well as confirm current warfarin regimen and assess any recent changes in medications, lifestyle (diet / alcohol / smoking / activity), or health. Patient also instructed to report any upcoming procedures or signs/symptoms of bleeding or clotting. Brent Tan Devyn 10/14/24 1352 documented in this encounter [facility] 10-12-2024 Telephone encounter Note [facility] keeps sending us faxed about needing patient's documentation for DM. We have faxed this multiple times in he past and I have called [facility] in the past about this as well and did not receive any call backs. LVM for [facility] again and faxed information again. [facility] 10-12-2024 Miscellaneous Notes [facility] keeps sending us faxed about needing patient's documentation for DM. We have faxed this multiple times in he past and I have called [facility] in the past about this as well and did not receive any call backs. LVM for [facility] again and faxed information again. Hi, this is Elly. With physical therapy for [facility], I was calling to notify I completed an evaluation for Sheeba Adames and plan on continuing with further physical therapy. If you could please give me a call back. So I know you got this message, my number is [phone], thank you, dennis documented in this encounter [facility] 10-12-2024 Telephone encounter Note Hi, this is Elly. With physical therapy for [facility], I was calling to notify I completed an evaluation for Sheeba Adames and plan on continuing with further physical therapy. If you could please give me a call back. So I know you got this message, my number is [phone], thank you, bye [facility] 10-12-2024 History of Present illness Narrative Casandra from [facility] (P: [phone]) LVM yesterday at 6:14 p.m stating patient's INR is 2.5. Current Warfarin dose: 5 mg MWF, 7.5 mg AOD, as reported by Casandra. Please call , Mar, with dosing at [phone]. Fax order to [facility] at [phone]. Result received from [facility]. INR 2.5 on 10/11/24 (goal range: 2.0-3.0). Left voicemail for patient's Mar at [phone] with the following instructions including INR result: Assessment: INR is in therapeutic range on 35 mg/week. Previous INR was in range on 37.5 mg/week. Will decrease to 5 mg daily at this time until next INR check. Plan: Patient instructed to decrease to warfarin 5 mg every day. Check INR in 2-3 day(s). Order faxed to [facility]. Patient instructed to return call to discuss INR result, anticoagulant dosing instructions, and follow-up INR redraw date as well as confirm current warfarin regimen and assess any recent changes in medications, lifestyle (diet / alcohol / smoking / activity), or health. Patient also instructed to report any upcoming procedures or signs/symptoms of bleeding or clotting. Coral Diggs RPH 10/12/24 0943 documented in this encounter [facility] 10-11-2024 Telephone encounter Note Verbal order to continue OT in home for the next 8 wks. Amada Mata [facility] [phone] [facility] 10-11-2024 Miscellaneous Notes Verbal order to continue OT in home for the next 8 wks. Amada Mata [facility] [phone] documented in this encounter [facility] 10-07-2024 Miscellaneous Notes Paper Latcher received fax from [facility] requesting a [facility] Day Supply refill for patient's Farxiga 10 mg Patient would like refill sent to [facility] in [place], [place] at [phone]. Noted. Refill sent. Evelyn Steward, Arun, [facility] October 07, 2024 4:25 PM Addended by: EVELYN STEWARD on: 10/07/2024 04:25 PM Modules accepted: Orders documented in this encounter [facility] 10-07-2024 Note Addended by: EVELYN STEWARD on: 10/07/2024 04:25 PM Modules accepted: Orders [facility] 10-07-2024 Telephone encounter Note Paper Latcher received fax from [place] [facility] requesting a [facility] Day Supply refill for patient's Farxiga 10 mg Patient would like refill sent to [facility] in [place], [place] at [phone]. [facility] 10-07-2024 Telephone encounter Note Noted. Refill sent. Evelyn Steward PharmD, [facility] October 07, 2024 4:25 PM [facility] 10-06-2024 History of Present illness Narrative Quyen from [facility] called (P: [phone]). Today, INR is 2.4. Patient was instructed to take 6 mg tonight. Next nursing visit: 10/11, 10/14. Please contact , Mar, with dosing at [phone]. Fax order to [facility] at [phone]. Result received from [facility]. INR 2.4 (goal range: 2.0-3.0). Spoke to patient's , Mar who reports patient findings: Taking warfarin dosing as documented. Missed or extra doses of warfarin: No Changes to medications: No Changes to lifestyle (diet / alcohol / smoking / activity): No- appetite has been good. No changes noted Recent emergency department visit / hospitalization / health changes / new contraindication to current anticoagulant: No Signs/symptoms of bruising/bleeding or clotting: No Upcoming procedures: No Anticoagulant prescription needed: No Seen referring provider in the last year Duration of therapy reviewed Assessment: INR is therapeutic at 2.4 today after receiving a total of 37.5 mg of warfarin with two held doses. Appears that 7.5 mg daily is too much. Will target 45 mg of warfarin and return to maintenance dose for now. Will give 7.5 mg dose today as anticipate INR to continue to drop due to two day hold. Plan: Patient instructed to take warfarin 7.5 mg today then resume 5 mg on Mon, Wed, Fri; 7.5 mg on all other days. Check INR in 5 day(s). Order faxed Patient and/or caregiver verbalizes understanding of anticoagulant dosing instructions and information discussed. Dosing regimen, counseling, and follow-up INR redraw date were provided. Patient reminded to call with questions or any medication changes. Patient instructed to seek medical attention if any major bleeding/bleeding that persists or worsens. [phone] Lucy Ford PharmD 10/06/24 1534 documented in this encounter [facility] 10-04-[address] will follow for homecare [facility] 10-04-[address] will follow for homecare documented in this encounter [facility] 09-14-2024 History of Present illness Narrative [facility] NOTE Subjective Patient presents for post hospital follow-up after a fall resulting in rib fractures. Patient was discharged from the hospital to a fdc facility where he currently is staying. Patient reports that he is doing well with therapy. He is walking with the use of a walker. Pain is well controlled. Objective Vitals: Vitals: 09/14/24 1428 09/14/24 1432 BP: 103/67 BP Site: Left Arm BP Postition: Sitting BP CUFF SIZE: L (13-17 inches) Pulse: 54 Resp: 18 Weight: 101.2 kg (223 lb) 101.2 kg (223 lb) Height: 182.9 cm (6') 182.9 cm (6') Physcial exam: General: No distress HEENT: Atraumatic EOMI PERRL 3mm, CN II-XII: grossly intact No Malocclusion Chest: No deformities Lungs:Good air movement B, CTA B, No Ronchi, No Wheeze Heart: Heart tones present, No Murmur noted, No CP, No palpitations Abd: Soft, No guarding, No rigidity (+) Appetite Non Tender RUQ / LUQ / RLQ / LLQ Extremities: 5/5 strength x 4 Pulses 2+ bilateral radii Neuro: Alert, pleasant, appropriate, Oriented to person, place, time - no distress Labs: Invalid input(s): CHLORIDE Radiology: No results found. Assessment/Plan Sheeba was seen today for follow-up. Diagnoses and all orders for this visit: Closed fracture of multiple ribs of right side with routine healing, subsequent encounter -pain is well controlled, continue current Tylenol regimen -continue ambulating as tolerated -remainder of rehab per facility -follow up in [facility] p[facility] - SHABANA Ramirez 09/14/24 1554 documented in this encounter [facility] 09-07-2024 History of Present illness Narrative Patient admitted to [facility] 08/24/24-09/06/24 after initially presenting to [facility] ED on 08/24/24 s/p mechanical fall at home. Patient reported he slipped while exiting the shower prior to ED visit, did not hit head or have LOC but developed subsequent rib pain that was worsening breathing. Patient was found to have rib fractures with large hemothorax and transferred to [facility] for further care. CT head negative for acute processes. Patient was given KCentra and vitamin K 10 mg IV x 1 for anticoagulation reversal and underwent urgent chest tube placement on 08/24/24. Hemoglobin remained stable. Patient did experience thrombocytopenia that stabilized as well. Chest tube was removed on 09/05/24 and CXR remained stable. INR mildly subtherapeutic at 1.7 upon presnetation to ED on 08/24/24. As noted above, anticoagulation was reversed for new onset hemothorax and warfarin/aspirin remained on hold throughout entirety of admission. Warfarin was included on discharge medication list, but no plan for resumption of OAC noted by trauma team in inpatient notes. Patient discharged to SNF, [facility], on 09/06/24. Fax sent to facility noting that if patient is cleared to resume warfarin then our team should be notified when he is discharged home as PPMM to resume outpatient warfarin management. Anticoagulation episode temporarily resolved. Dulce Sommer [facility] 09/07/24 0849 documented in this encounter [facility] 08-29-2024 Miscellaneous Notes Contract: BRI Avelar @ [facility] is calling regarding Hemothorax call back is [phone] Cruz on cell phone relayed information and sent a secure chat so provider has the pt information with the call back. documented in this encounter [facility] 08-29-2024 Telephone encounter Note Contract: BRI Avelar @ [facility] is calling regarding Hemothorax call back is [phone] [facility] 08-29-2024 Telephone encounter Note Paper Latcher contacted Dr Cruz on cell phone relayed information and sent a secure chat so provider has the pt information with the call back. [facility] 08-19-2024 History of Present illness Narrative 15 minute [id number] follow-up anticoagulation appointment. INR performed in office per protocol. INR 1.8 (goal range: 2.0-3.0). Patient reports: Taking warfarin dosing as documented. Missed or extra doses of warfarin: No Changes to medications: YES Sucralfate reduced Changes to lifestyle (diet / alcohol / smoking / activity): YES Had small serving of cooked spinach yesterday Recent emergency department visit / hospitalization / health changes / new contraindication to current anticoagulant: YES Heart monitor planned Signs/symptoms of bruising/bleeding or clotting or any intolerable adverse events: No Upcoming procedures: No Anticoagulant prescription needed: No Seen referring provider in the last year Duration of therapy reviewed Assessment: INR is slightly low. This is likely due to improvement in volume status. We will increase weekly dose additional 6% Plan: Patient instructed to increase to warfarin 5 mg MWF and 7.5 mg AOD. Check INR in 2.5 week(s). Patient verbalizes understanding of anticoagulant dosing instructions and information discussed. Dosing regimen, counseling, and follow-up appointment were provided to the patient. Patient reminded to call with questions or any medication changes. Patient instructed to seek medical attention if any major bleeding/bleeding that persists or worsens. Evelyn Steward RPH 08/19/24 1338 documented in this encounter [facility] 08-19-2024 History of Present illness Narrative Sheeba Adames Date of visit: 08/19/2024 Date of : 1945 Age: 79 y.o. Patient Active Problem List Diagnosis Cerebrovascular disease Coronary artery disease involving [place] coronary artery of [place] heart without angina pectoris Hyperlipidemia Mineral metabolism disorder Elevated PSA Bladder cancer ([facility] Presence of coronary angioplasty implant and graft Severe obesity (BMI 35.0-39.9) with comorbidity ([facility]) Benign prostatic hyperplasia with urinary obstruction E. 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 Bulbous urethral stricture Actinic keratosis Cerebral infarction ([facility]) History of myocardial infarction Iron deficiency anemia Neck pain Nephrolithiasis Neurologic disorder associated with diabetes mellitus ([facility]) 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 ([facility]) Peripheral edema Type 2 diabetes mellitus without complication ([facility]) Venous insufficiency (chronic) (peripheral) Venous stasis ulcer of left lower leg with edema of left lower leg ([facility]) Lymphedema Supratherapeutic INR LOUISA (acute kidney injury) ([facility]) Hypokalemia Chronic combined systolic and diastolic congestive heart failure ([facility]) Hydronephrosis Hydroureter Hypomagnesemia E coli bacteremia Occult blood positive stool Urinary incontinence Allergies Allergen Reactions Celecoxib Dizziness Niacin Rash Prasugrel Other (See Comments) and Rash Current Outpatient Medications Medication Sig Dispense Refill acetaminophen (TYLENOL) 325 mg tablet Take 2 tablets (650 mg total) by mouth every 6 (six) hours as needed for fever, headaches or pain. 30 tablet 0 aspirin 81 mg Take 1 tablet (81 mg total) by mouth in the morning. 30 tablet 11 atorvastatin (LIPITOR) 80 mg tablet TAKE 1 TABLET BY MOUTH EVERY MORNING 90 tablet 3 bumetanide (BUMEX) 1 mg tablet Take 1 tablet (1 mg total) by mouth 2 (two) times a day. Take extra 1 mg tab in AM when weight is 236 or greater or swelling 270 tablet 3 dapagliflozin propanediol (FARXIGA) 10 mg tablet Take 1 tablet (10 mg total) by mouth in the morning. 30 tablet 3 ferrous sulfate (SLOW FE) 137 mg (45 mg iron) tablet extended release Take 90 mg by mouth in the morning. FIASP FLEXTOUCH U-100 INSULIN 100 unit/mL (3 mL) insulin pen SSI TID before [id number] 2u, 201-250 4u, 251-300 6u, 301-350 8u, 351-400 10u. SSI [id number] 2u, 251-300 4u, 301-350 6u, 351-400 8u guaiFENesin (MUCINEX) 600 mg tablet extended release 12hr Take 1 tablet (600 mg total) by mouth every 12 (twelve) hours. magnesium oxide 500 mg tablet Take 1 tablet (500 mg total) by mouth in the morning and 1 tablet (500 mg total) before bedtime. metoprolol succinate XL (TOPROL XL) 50 mg 24 hr tablet Take 1 tablet (50 mg total) by mouth in the morning. 90 tablet 2 nitroglycerin (NITROSTAT) 0.[address] 1 tablet (0.4 mg total) under the tongue every 5 (five) minutes as needed for chest pain (for chest pain). 25 tablet 3 pantoprazole (PROTONIX) 40 mg EC tablet Take 1 tablet (40 mg total) by mouth every morning before breakfast. PAROXETINE HCL ORAL 20 mg daily. spironolactone (ALDACTONE) 25 mg tablet Take 1 tablet (25 mg total) by mouth in the morning. 90 tablet 1 sucralfate (CARAFATE) 1 gram tablet Take 1 tablet (1 g total) by mouth in the morning and 1 tablet (1 g total) at noon and 1 tablet (1 g total) in the evening and 1 tablet (1 g total) before bedtime. valsartan (DIOVAN) 40 mg tablet Take 1 tablet (40 mg total) by mouth in the morning. 30 tablet 11 warfarin (COUMADIN) 5 mg tablet TAKE ONE AND ONE HALF TO TWO TABLETS BY MOUTH DAILY DIRECTED 180 tablet 3 No current facility-administered medications for this visit. 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 At this visit states he feels significant improved since last seen in April, continues to have some chest discomfort with movement however this is improved as well as his dyspnea on exertion, no shortness of breath at rest. This primarily occurs with minor movements Unable to feel when he is in atrial fibrillation, no complaints of heart racing, no lightheadedness or dizziness. Tells me he is having difficulty with his fluid restriction due to thirst, is not adding salt however discussed to avoid salty foods. Past Medical History: Diagnosis Date Allergic Anemia Arthritis Atrial fibrillation ([facility]) Back pain Cataract CHF (congestive heart failure) ([facility]) Coronary artery disease 3 stents 2004 Diabetes mellitus type 2, controlled ([facility]) GERD (gastroesophageal reflux disease) Hyperlipidemia Hypertension Peptic ulceration Pneumonia Presence of coronary angioplasty implant and graft Recurrent UTI Shortness of breath Skin cancer and bladder Stroke ([facility]) TIA (transient ischemic attack) Urinary frequency Visual impairment No data recorded No data recorded No data recorded Past Surgical History: Procedure Laterality Date APPENDECTOMY BACK SURGERY BIOPSY BLADDER N/A 08/27/2023 Performed by Fabián Bishop MD at [facility] CARDIAC CATHETERIZATION CAROTID STENT 3 valves COLONOSCOPY DIAGNOSTIC / SCREENING N/A 01/02/2024 Performed by Anni Lau MD at [facility] CYSTOSCOPY N/A 08/27/2023 Performed by Fabián Bishop MD at [facility] CYSTOSCOPY N/A 08/19/2022 Performed by Fabián Bishop MD at [facility] CYSTOSCOPY N/A 11/12/2021 Performed by Fabián Bishop MD at [facility] CYSTOSCOPY N/A 05/14/2021 Performed by Fabián Bishop MD at [facility] CYSTOSCOPY N/A 05/03/2020 Performed by Fabián Bishop MD at [facility] CYSTOSCOPY N/A 12/13/2019 Performed by Fabián Bishop MD at [facility] CYSTOSCOPY N/A 03/25/2018 Performed by Fabián Bishop MD at [facility] CYSTOSCOPY N/A 08/04/2017 Performed by Fabián Bishop MD at [facility] CYSTOSCOPY DILATATION URETHRAL N/A 08/27/2023 Performed by Fabián Bishop MD at [facility] CYSTOSCOPY DILATATION URETHRAL N/A 03/03/2023 Performed by Fabián Bishop MD at [facility] CYSTOSCOPY DILATATION URETHRAL N/A 11/12/2021 Performed by Fabián Bishop MD at [facility] CYSTOSCOPY DILATATION URETHRAL N/A 05/14/2021 Performed by Fabián Bishop MD at [facility] CYSTOSCOPY DILATATION URETHRAL N/A 12/13/2019 Performed by Fabián Bishop MD at [facility] CYSTOSCOPY DILATATION URETHRAL Bilateral 09/23/2018 Performed by Fabián Bishop MD at [facility] CYSTOSCOPY DILATATION URETHRAL BULBAR N/A 08/19/2022 Performed by Fabián Bishop MD at [facility] CYSTOSCOPY RETROGRADE PYELOGRAM Bilateral 03/03/2023 Performed by Fabián Bishop MD at [facility] CYSTOSCOPY RETROGRADE PYELOGRAM Bilateral 11/15/2020 Performed by Fabián Bishop MD at [facility] CYSTOSCOPY RETROGRADE PYELOGRAM Bilateral 04/21/2019 Performed by Fabián Bishop MD at [facility] CYSTOSCOPY RETROGRADE PYELOGRAM Bilateral 01/13/2017 Performed by Fabián Bishop MD at [facility] CYSTOSCOPY RETROGRADE PYELOGRAM [facility] solution Right 08/16/2024 Performed by Fabián Bishop MD at [facility] CYSTOSCOPY W/ INTERNAL URETHROTOMY 08/14/2015 stent removal CYSTOSCOPY WITH DILATATION N/A 05/03/2020 Performed by Fabián Bishop MD at [facility] ESOPHAGOGASTRODUODENOSCOPY DIAGNOSTIC N/A 03/05/2024 Performed by Anni Lau MD at [facility] ESOPHAGOGASTRODUODENOSCOPY DIAGNOSTIC N/A 01/02/2024 Performed by Anni Lau MD at [facility] EXTERNAL EAR SURGERY left ear, cancer removal EYE SURGERY HERNIA REPAIR february 2010 and 2012 JOINT REPLACEMENT LASIK PROSTATE SURGERY SKIN BIOPSY SPINE SURGERY TONSILLECTOMY TOTAL KNEE ARTHROPLASTY TRANSURETHRAL RESECTION OF BLADDER TUMOR 07/05/2015 TRANSURETHRAL RESECTION OF PROSTATE Family History Problem Relation Age of Onset Heart failure Father No Known Problems Mother Social History Socioeconomic History Marital status: Spouse name: Not on file Number of children: Not on file Years of education: Not on file Highest education level: Not on file Occupational History Not on file Tobacco Use Smoking status: Former Current packs/day: 1.00 Types: Cigarettes Smokeless tobacco: Never Vaping Use Vaping status: Never Used Substance and Sexual Activity Alcohol use: No Drug use: No Sexual activity: Not Currently Partners: Female control/protection: None Other Topics Concern Caffeine Use Yes Social History Narrative Not on file Social Drivers of Health Financial Resource Strain: Low Risk (01/29/2024) Received from [facility] Overall Financial Resource Strain (CARDIA) Difficulty of Paying Living Expenses: Not hard at all Food Insecurity: No Food Insecurity (08/19/2024) Hunger Screening Food Insecurity - Worry: Never True Food Insecurity - Inability: Never True Transportation Needs: No Transportation Needs (01/29/2024) Received from [facility] PRAPARE - Transportation Lack of Transportation (Medical): No Lack of Transportation (Non-Medical): No Physical Activity: Inactive (01/29/2024) Received from [facility] Exercise Vital Sign Days of Exercise per Week: 0 days Minutes of Exercise per Session: 0 min Stress: Stress Concern Present (01/29/2024) Received from [facility] [place] [facility] Occupational [facility] - Occupational Stress Questionnaire Feeling of Stress : To some extent Social Connections: Socially Isolated (01/29/2024) Received from [facility] Social Connection and Isolation Panel [NHANES] Frequency of Communication with Friends and Family: Once a week Frequency of Social Gatherings with Friends and Family: Never Attends Pentec[employer]alism Services: Never Active Member of Clubs or Organizations: No Attends Club or Organization Meetings: Never Marital Status: Interpersonal Safety: Not At Risk (12/26/2023) Humiliation, Afraid, Rape, and Kick questionnaire Fear of Current or Ex-Partner: No Emotionally Abused: No Physically Abused: No Sexually Abused: No Housing Instability: Unknown (01/29/2024) Received from [facility] Housing Stability Vital Sign Unable to Pay for Housing in the Last Year: No Number of Times Moved in the Last Year: Not on file Homeless in the Last Year: No Review of Systems Review of Systems Constitutional: Negative. HENT: Negative. Eyes: Negative. Respiratory: Positive for cough. Hematologic/Lymphatic: Bruises/bleeds easily. Skin: Negative. Musculoskeletal: Negative. Gastrointestinal: Negative. Neurological: Positive for loss of balance. Psychiatric/Behavioral: Negative. Allergic/Immunologic: Negative. CARDIOVASCULAR: Please review HPI. Physical Examination General appearance: Alert, oriented and cooperative. In no acute distress. Skin: Warm and dry to touch. Head: Normocephalic, without obvious abnormality, atraumatic. Ears, Nose, Mouth, Throat: Throat clear without erythema or exudate. Dentition intact. Eyes: Conjunctivae unremarkable, EOM intact. Neck: No JVD Respiratory: + inspiratory crackles left lower lung field Cardiovascular: RRR with normal S1 and S2 with no murmurs. Gastrointestinal: Soft, non-tender. Musculoskeletal: Trace edema bilaterally, venous insufficiency changes Neurologic: Oriented to time, person and place, affect appropriate. No focal/major motor defects noted. Psychiatric: Appropriate mood, memory and judgement. VITAL SIGNS: BP 118/80 (BP Site: Right Arm, BP Postition: Sitting) Pulse 64 Ht 182.9 cm (6') Wt 108.4 kg (239 lb) SpO2 99% BMI 32.41 kg/m No orders of the defined types were placed in this encounter. There are no discontinued medications. IMPRESSIONS/PLAN 1. Paroxysmal atrial fibrillation ([facility]) - Holter monitor 24-48 hour; Future 2. Coronary artery disease involving [place] coronary artery of [place] heart without angina pectoris 3. Presence of coronary angioplasty implant and graft 4. Primary hypertension 5. 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) 6. Venous insufficiency (chronic) (peripheral) 1.Chronic systolic and diastolic heart failure NYHA class 3 -likely nonischemic with nuclear stress showing fixed inferior perfusion defect with no ischemia noted -following with [facility]TM in heart failure Clinic, his spironolactone was recently increased repeat lab work pending -continue metoprolol succinate 50 mg, valsartan 40 mg, spironolactone 25 mg, Farxiga 10 mg -Bumex 1 mg with additional if greater than 236 2. Paroxysmal atrial fibrillation -last sinus EKG 07/2023 -will obtain monitor to evaluate if any of his symptoms associated with atrial fibrillation -anticoagulated on warfarin, noted bruising 3. High Premature Ventricular Contraction burden 13% Holter 2020 4. CKD 5. 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 Hyperlipidemia -LDL well controlled 38, continue statin 7. History of bladder cancer Patient symptoms are improving with continued up titration we will also obtain a monitor to ensure no significant rapid ventricular rate with his atrial fibrillation. He will follow up with general cardiology in 6 weeks and continue follow up with [facility] and Heart failure Clinic. Seen with in the office. TODAYS ORDERS Orders Placed This Encounter Procedures Holter monitor 24-48 hour FOLLOW UP Return in about 6 months (around 02/16/2025). PCP: Shabana Costello MD Referring Physician: Shabana Costello MD [address] [place] [address] Jerri Brunner PA-C 08/19/24 1320 documented in this encounter [facility] 08-19-2024 Instructions Jerri Brunner PA-C - 08/19/2024 12:30 PM EST Holter monitor when able to Continue current medications Follow up in 6 months documented in this encounter [facility] 08-18-2024 Miscellaneous Notes Called patient to remind them to bring their most current copy of their medication list with them to their appt. Patient verbalizes understanding. documented in this encounter [facility] 08-18-2024 Telephone encounter Note Called patient to remind them to bring their most current copy of their medication list with them to their appt. Patient verbalizes understanding. [facility] 08-16-2024 Miscellaneous Notes Return the office approximately 6 weeks. Six months cysto potential left retrograde pyelogram. [facility] bladder solution. Local. Marlene. Diagnosis history bladder carcinoma. documented in this encounter [facility] 08-16-2024 Telephone encounter Note Return the office approximately 6 weeks. Six months cysto potential left retrograde pyelogram. [facility] bladder solution. Local. Marlene. Diagnosis history bladder carcinoma. [facility] 08-13-2024 Miscellaneous Notes Preoperative Education Checklist- General Surgery date: 08/16/24 Surgery time: 0900 Arrival time: 0800 1. Bring a photo ID and your insurance card with you the day of surgery. You will check in at the main lobby at the registration desk near the [facility]. 2. If you have a Living Will/Durable Power of Field Sales Associate for Health Care that is not on file here, please bring a copy the day of surgery. 3. Please shower/tub bath the night before surgery or morning of. 4. NO powder, lotion, perfume/cologne, aftershave, make-up, nail montserratian, deodorant, or hair products after you have bathed. 5. Avoid ALL Aspirin and non-steroidal anti-inflammatory drugs (Ibuprofen, Advil, Aleve, Excedrin, Meloxicam, etc.) for 7 days prior to surgery OR as instructed by your surgeon. Tylenol IS ALLOWED. If you are on Ticlid, Xarelto, Eliquis, Pradaxa, Plavix, or Coumadin, please check with your prescribing doctor for instructions for when to stop them. 6. Refrain from smoking or any type of tobacco use for at least 8 hours prior to arrival for your surgery. Pre-Surgery Instructions: Medication Instructions acetaminophen (TYLENOL) 325 mg tablet Check with prescribing doctor for instructions aspirin 81 mg Check with prescribing doctor for instructions atorvastatin (LIPITOR) 80 mg tablet Check with prescribing doctor for instructions bumetanide (BUMEX) 1 mg tablet Check with prescribing doctor for instructions dapagliflozin propanediol (FARXIGA) 10 mg tablet Check with prescribing doctor for instructions ferrous sulfate (SLOW FE) 137 mg (45 mg iron) tablet extended release Check with prescribing doctor for instructions FIASP FLEXTOUCH U-100 INSULIN 100 unit/mL (3 mL) insulin pen Check with prescribing doctor for instructions guaiFENesin (MUCINEX) 600 mg tablet extended release 12hr Check with prescribing doctor for instructions magnesium oxide 500 mg tablet Check with prescribing doctor for instructions metoprolol succinate XL (TOPROL XL) 50 mg 24 hr tablet Check with prescribing doctor for instructions nitroglycerin (NITROSTAT) 0.4 MG SL tablet Check with prescribing doctor for instructions pantoprazole (PROTONIX) 40 mg EC tablet Check with prescribing doctor for instructions PAROXETINE HCL ORAL Check with prescribing doctor for instructions spironolactone (ALDACTONE) 25 mg tablet Check with prescribing doctor for instructions sucralfate (CARAFATE) 1 gram tablet Check with prescribing doctor for instructions valsartan (DIOVAN) 40 mg tablet Check with prescribing doctor for instructions warfarin (COUMADIN) 5 mg tablet Check with prescribing doctor for instructions documented in this encounter [facility] 08-13-2024 Nurse Note Preoperative Education Checklist- General Surgery date: 08/16/24 Surgery time: 0900 Arrival time: 0800 1. Bring a photo ID and your insurance card with you the day of surgery. You will check in at the main lobby at the registration desk near the [facility]. 2. If you have a Living Will/Durable Power of Field Sales Associate for Health Care that is not on file here, please bring a copy the day of surgery. 3. Please shower/tub bath the night before surgery or morning of. 4. NO powder, lotion, perfume/cologne, aftershave, make-up, nail montserratian, deodorant, or hair products after you have bathed. 5. Avoid ALL Aspirin and non-steroidal anti-inflammatory drugs (Ibuprofen, Advil, Aleve, Excedrin, Meloxicam, etc.) for 7 days prior to surgery OR as instructed by your surgeon. Tylenol IS ALLOWED. If you are on Ticlid, Xarelto, Eliquis, Pradaxa, Plavix, or Coumadin, please check with your prescribing doctor for instructions for when to stop them. 6. Refrain from smoking or any type of tobacco use for at least 8 hours prior to arrival for your surgery. Pre-Surgery Instructions: Medication Instructions acetaminophen (TYLENOL) 325 mg tablet Check with prescribing doctor for instructions aspirin 81 mg Check with prescribing doctor for instructions atorvastatin (LIPITOR) 80 mg tablet Check with prescribing doctor for instructions bumetanide (BUMEX) 1 mg tablet Check with prescribing doctor for instructions dapagliflozin propanediol (FARXIGA) 10 mg tablet Check with prescribing doctor for instructions ferrous sulfate (SLOW FE) 137 mg (45 mg iron) tablet extended release Check with prescribing doctor for instructions FIASP FLEXTOUCH U-100 INSULIN 100 unit/mL (3 mL) insulin pen Check with prescribing doctor for instructions guaiFENesin (MUCINEX) 600 mg tablet extended release 12hr Check with prescribing doctor for instructions magnesium oxide 500 mg tablet Check with prescribing doctor for instructions metoprolol succinate XL (TOPROL XL) 50 mg 24 hr tablet Check with prescribing doctor for instructions nitroglycerin (NITROSTAT) 0.4 MG SL tablet Check with prescribing doctor for instructions pantoprazole (PROTONIX) 40 mg EC tablet Check with prescribing doctor for instructions PAROXETINE HCL ORAL Check with prescribing doctor for instructions spironolactone (ALDACTONE) 25 mg tablet Check with prescribing doctor for instructions sucralfate (CARAFATE) 1 gram tablet Check with prescribing doctor for instructions valsartan (DIOVAN) 40 mg tablet Check with prescribing doctor for instructions warfarin (COUMADIN) 5 mg tablet Check with prescribing doctor for instructions [facility] 08-13-2024 History of Present illness Narrative Images from the original note were not included. Shipping Notification Received for Akanksha: Evelyn Steward RPH 08/13/24 1508 documented in this encounter [facility] 08-13-2024 History of Present illness Narrative [facility] - PHARMACY MEDICATION MANAGEMENT [address] [facility] [id number] SUBJECTIVE: Referring Provider: Delbert Hassan NP [facility] Referring Provider: Yes Consult Agreement: Yes Established with Heart Failure Clinic: Yes PCP: Shabana Costello MD Sheeba Adames is a 79 y.o. (White or [1]) male who presents for a follow up MTM visit for medication optimization and management of heart failure. At last PharmD visit, spironolactone 12.5 mg daily resumed. Sheeba Adames is accompanied by his . Patient endorses he weight have been stable and he has not needed the 3rd tablet of bumetanide recently. Reviewed to use when weight is greater than 236 on home scale in the AM. Patient is tolerating medications without concern and vitals are stable at home. Patient's last EF was 35-40 % on 12/31/2023 NYHA Class 3 , Stage C DIET Sodium intake: Not adding salt, working to limit pre-packaged foods Potassium intake: Currently eating potassium rich foods d/t low K+ Fluid intake: 64oz day; patient aware of limit. Discussed to include drinks, soups, jello, popsickles, etc. Current Heart Failure Regimen: Medication Class Target Doses for HFrEF Patient Regimen Beta-jeferson Carvedilol 25-50 mg twice daily Metoprolol succinate 200 mg daily Bisoprolol 10 mg daily Metoprolol 50 mg daily At target dose: no BE Inhibitor Lisinopril 20-40 mg daily Captopril 50 mg three times daily Enalapril 10-20 mg twice daily Ramipril 10 mg daily Valsartan 40 mg daily At target dose: no ARB Losartan 150 mg daily Candesartan 32 mg daily Valsartan 160 mg twice daily ARNI Sacubitril/valsartan 97/103 mg twice daily Aldosterone Antagonist Spironolactone 25-50 mg daily Eplerenone 50 mg daily Spironolactone 12.5 mg daily At target dose: no SGLT2 Inhibitor Dapagliflozin 10 mg daily Empagliflozin 10 mg daily Farxiga 10 mg daily At target dose: yes Hydralazine/Nitrate Hydralazine 75 mg three times daily Isosorbide dinitrate 40 mg three times daily N/A At target dose: not applicable Diuretic Furosemide Bumetanide Torsemide Bumetanide 1 mg BID + additional dose PRN weight >236 lbs Other MEDICATION ADHERENCE/COST Patient reports being adherent to medications Patient states medications are affordable. BLOOD PRESSURES & WEIGHTS Patient does check his blood pressure at home Date Blood Pressure Heart Rate Weight Forgot log at home. Running ~130s/80s at home Lowest readings at home: 110s/120s at home HR in the 60s-70s at home OBJECTIVE: VITALS: BP 117/74 Pulse 76 Wt 110.6 kg (243 lb 12.8 oz) BMI 33.06 kg/m Caffeine intake within 60 minutes: No Smoking status: non-smoker (quit 40 years ago) Tobacco cessation interest if current smoker: No Weight: Wt Readings from Last 3 Encounters: 08/13/24 110.6 kg (243 lb 12.8 oz) 07/26/24 107.6 kg (237 lb 3.2 oz) 07/20/24 111.9 kg (246 lb 9.6 oz) Lab Results Component Value Date SODIUM 142 08/06/2024 K 4.4 08/06/2024 BUN 34 (H) 08/06/2024 CREATININE 1.64 (H) 08/06/2024 EGFR 42 (L) 08/06/2024 Lab Results Component Value Date CHOL 120 (L) 05/25/2021 EXTCHOL 106 11/30/2021 HDL 38 (L) 05/25/2021 EXTCHOHDL 3 11/30/2021 LDLCALC 61 05/25/2021 EXTLDL 46 11/30/2021 TRIG 107 05/25/2021 EXTRIG 136 11/30/2021 Lab Results Component Value Date IRON 18 (L) 12/24/2023 TIBC 140 (L) 12/24/2023 FERRITIN 522 (H) 12/24/2023 IMMUNIZATIONS: Influenza Complete: Yes Pneumonia Complete: Yes; patient is going to confirm Shingles Complete: No Immunization History Administered Date(s) Administered COVID-19, mRNA, LNP-S, PF, 100mcg/0.5mL Dose 07/21/2020, 08/18/2020, 04/30/2021 Covid-19, Mrna, Lnp-s, Bivalent, Pf, 30mcg/0.3 ml 03/29/2022 Covid-19,mrna, Lnp-s, Pf, 50mcg/0.5ml 12+ 04/16/2023 Influenza, Trivalent, Adjuvanted 04/05/2024 ASSESSMENT/PLAN: Heart Failure with Reduced Ejection Fraction: ASSESSMENT: Patient is not on maximally tolerated doses of guideline directed medical therapy. Still titrating Plan to increase spironolactone to 25 mg daily as Scr has improved with addition of Farxiga and is remaining stable in patients baseline range Reminded to take an extra bumetanide when weight is greater than 236 lbs at home Plan to increase valsartan to 40 mg BID at next OV if Scr, K+, and vitals remains stable. If able to tolerate that, will then plan to pursue PAP for Entresto and start at 1/2 tab BID. EDUCATION: Discussed heart failure pathophysiology and management Reviewed DASH diet and BP goal Reviewed importance of low salt and fluid restricted diet Reviewed medication dosing, frequency, and possible side effects Immunizations: recommended Shingles Smoking cessation: n/a, patient is a former smoker MEDICATION PLAN: Diuretic: Continue bumetanide 1 mg BID + PRN weight >236 lbs ACEi/ARB/ARNI: Continue Valsartan to 40 mg daily Beta-jeferson: Continue metoprolol succinate 50 mg daily Aldosterone antagonist: Increase spironolactone 25 mg daily SGLT2i: Continue Farxiga 10 mg daily Other: N/A Refill needed on cardiac-related medications? 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 PLAN: Recheck BMP in 1 week New baseline Scr appears to be 1.5-1.8 Scr have improved with being on Farxiga and remains stable overall FOLLOW UP: PharmD visit: 2 week(s) Cardiology MD or LESLEE visit: 4 month(s) Labs due in ISAIAS week(s) Signature: Evelyn Steward PharmD, [facility] 30 minute [id number] follow-up appointment. Evelyn Steward RPH 08/13/24 1100 documented in this encounter [email or web address] 08-13-2024 Instructions Evelyn Steward RPH - 08/13/2024 10:30 AM EST Follow up after today's visit: Increase spironolactone to 25 mg daily Repeat BMP 1 week after starting higher dose of spironolactone (08/19/24) Take extra bumetanide if weight is higher than 236 Limit salt intake to 2 grams/day and fluid intake to 2 L/day Obtain and record daily weights and call the clinic (Phone #: [phone]) if you gain more than 5 lbs in one week. Check your blood pressure once daily and bring your blood pressure diary to your next clinic visit Avoid cardiotoxic medications such as NSAIDS (Advil, Aleve, Motrin etc) Do not miss any doses of medications. documented in this encounter [facility] 08-06-2024 History of Present illness Narrative 15 minute [id number] follow-up anticoagulation appointment. INR performed in office per protocol. INR 1.6 (goal range: 2.0-3.0). Patient reports: Taking warfarin dosing as documented. Missed or extra doses of warfarin: No Changes to medications: No Changes to lifestyle (diet / alcohol / smoking / activity): No Recent emergency department visit / hospitalization / health changes / new contraindication to current anticoagulant: YES Edema/Weight is down Signs/symptoms of bruising/bleeding or clotting or any intolerable adverse events: No Upcoming procedures: No Anticoagulant prescription needed: No Seen referring provider in the last year Duration of therapy reviewed Assessment: INR is low likely due to volume shift. We will increase weekly dose 6% Plan: Patient instructed to increase to warfarin 7.5 mg Tue/Thurs/Sat and 5 mg AOD. Check INR in 2 week(s). Patient verbalizes understanding of anticoagulant dosing instructions and information discussed. Dosing regimen, counseling, and follow-up appointment were provided to the patient. Patient reminded to call with questions or any medication changes. Patient instructed to seek medical attention if any major bleeding/bleeding that persists or worsens. Evelyn Steward RPH 08/06/24 1522 documented in this encounter [facility] 07-28-2024 Miscellaneous Notes Called patient at [phone]. Spoke with Grace. Scr slightly higher than previous check. However, patient has been using higher dose of Bumex for volume overload. He is currently back to 236 lbs and no longer needing the 3rd tablet per day. Anticipate this to be contributing to Scr increase. We will maintain current dosing of all other GDMT given Bumex dose is returning to 2 tabs per day and recheck Scr in 1 weeks. If Scr remains elevated at that time, will reassess continuing spironolactone. Evelyn Steward PharmD, [facility] July 28, 2024 4:23 PM documented in this encounter [facility] 07-28-2024 Telephone encounter Note Called patient at [phone]. Spoke with Grace. Scr slightly higher than previous check. However, patient has been using higher dose of Bumex for volume overload. He is currently back to 236 lbs and no longer needing the 3rd tablet per day. Anticipate this to be contributing to Scr increase. We will maintain current dosing of all other GDMT given Bumex dose is returning to 2 tabs per day and recheck Scr in 1 weeks. If Scr remains elevated at that time, will reassess continuing spironolactone. Evelyn Steward PharmD, [facility] July 28, 2024 4:23 PM [facility] 07-26-2024 History of Present illness Narrative Images from the original note were not included. HEART FAILURE CLINIC Sheeba Adames is a 79 y.o. male seen in the Heart Failure Clinic today for follow up. He has history of chronic heart failure with reduced ejection fraction for likely nonischemic cardiomyopathy. 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 He also has history of paroxysmal atrial fibrillation, CVA, hypertension, hyperlipidemia, diabetes, obesity and bladder cancer. He had a hospitalization in December with acute kidney injury noted to have urosepsis, acute heart failure and hypotension. An echocardiogram was completed during that hospitalization that showed a newly reduced EF at 35-40% as well as an elevated BNP at 518. He underwent a Lexiscan stress test to rule out ischemic cause of low EF which showed a fixed defect inferiorly and no reversible ischemia. LVEF was 46% on SPECT. He has been following with the [facility] clinical pharmacist to assist with optimization of medical therapy. He is no longer taking midodrine and is now on all 4 pillars of medical therapy with slowing the process. When he was recently seen by the pharmacist he was noted to be up in fluid and he was instructed to take an extra 1 mg of Bumex in the a.m. for 2 days. His weight went down on our scale is by 6 lb. He noticed a similar change on his scale and does think he still up 3-4 lb of fluid. He has noted an improvement in shortness of breath inside his home. He is only occasionally noting shortness of breath walking room to room and denies PND, orthopnea or abdominal bloating. States improvement to his lower extremity swelling. His states today that he still struggles with restricting his fluids. He is not adding salt to his diet but is eating out at restaurants such as [employer]. HEART FAILURE SYNOPSIS Type of Heart Failure: combined systolic & diastolic Last EF: 35-40% QRS Interval: 86 ms NYHA Class: III AHA Stage: C Cardiac Device: None Last Hospitalization: 01/13 with HF, LOUISA, UTI Estimated Dry Weight: TBD Current Weight: Weight: 107.6 kg (237 lb 3.2 oz) Guideline-Directed Medication Therapy Beta Jeferson: Toprol 50 mg daily ACE1 / ARB / ARN1: Valsartan 40 mg daily Aldosterone Antagonist: Spironolactone 12.5 mg daily SG LT 2 inhibitor: Farxiga 10 mg daily Diuretic Therapy: Bumex 1 mg twice a day; extra 1 mg in the a.m. as needed ASSESSMENT 1. Chronic combined systolic and diastolic heart failure, NYHA 3 2. Likely nonischemic cardiomyopathy 3. 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. No current anginal complaints 4. Paroxysmal atrial fibrillation on warfarin 5. History of CVA 6. Primary hypertension 7. Hyperlipidemia 8. Diabetes mellitus type 2 9. History of bladder cancer PLAN His volume status has improved and continues to report NYHA 3 symptoms although he has seen improvement in his shortness of breath as well. He will continue to have medicine titration. If blood pressure and renal function allow, could consider switching valsartan to Entresto. He was instructed to take an extra 1 mg of Bumex when he notes a weight of 236 or greater or swelling. If all is well he will return in 3 months and he can be seen at any time for concerning symptoms. Patient Instructions Okay to take an extra 1 mg of Bumex in the morning when your weight is 236 or greater or notice swelling Continue to meet with pharmacist for adjustment of heart failure medications New Orders No orders of the defined types were placed in this encounter. Medications Changed @EDPTMEDCHANGE@ SUBJECTIVE REVIEW OF SYSTEMS Review of Systems Constitutional: Negative for activity change, appetite change and fatigue. HENT: Negative for congestion, nosebleeds and postnasal drip. Respiratory: Positive for cough (mucus) and shortness of breath (with exertion). Negative for chest tightness and wheezing. Cardiovascular: Positive for leg swelling. Negative for chest pain and palpitations. Gastrointestinal: Positive for abdominal distention. Negative for abdominal pain, nausea and vomiting. Genitourinary: Negative for frequency. Musculoskeletal: Negative for joint swelling. Neurological: Negative for dizziness, syncope, light-headedness and headaches. Hematological: Does not bruise/bleed easily. Psychiatric/Behavioral: Positive for sleep disturbance (hard to stay asleep). The patient is not nervous/anxious. CURRENT MEDICATIONS Current Outpatient Medications Medication Sig Dispense Refill acetaminophen (TYLENOL) 325 mg tablet Take 2 tablets (650 mg total) by mouth every 6 (six) hours as needed for fever, headaches or pain. 30 tablet 0 aspirin 81 mg Take 1 tablet (81 mg total) by mouth in the morning. 30 tablet 11 atorvastatin (LIPITOR) 80 mg tablet TAKE 1 TABLET BY MOUTH EVERY MORNING 90 tablet 3 dapagliflozin propanediol (FARXIGA) 10 mg tablet Take 1 tablet (10 mg total) by mouth in the morning. 30 tablet 3 ferrous sulfate (SLOW FE) 137 mg (45 mg iron) tablet extended release Take 90 mg by mouth in the morning. FIASP FLEXTOUCH U-100 INSULIN 100 unit/mL (3 mL) insulin pen SSI TID before [id number] 2u, 201-250 4u, 251-300 6u, 301-350 8u, 351-400 10u. SSI [id number] 2u, 251-300 4u, 301-350 6u, 351-400 8u guaiFENesin (MUCINEX) 600 mg tablet extended release 12hr Take 1 tablet (600 mg total) by mouth every 12 (twelve) hours. magnesium oxide 500 mg tablet Take 1 tablet (500 mg total) by mouth in the morning and 1 tablet (500 mg total) before bedtime. metoprolol succinate XL (TOPROL XL) 50 mg 24 hr tablet Take 1 tablet (50 mg total) by mouth in the morning. 90 tablet 3 nitroglycerin (NITROSTAT) 0.[address] 1 tablet (0.4 mg total) under the tongue every 5 (five) minutes as needed for chest pain (for chest pain). 25 tablet 3 pantoprazole (PROTONIX) 40 mg EC tablet Take 1 tablet (40 mg total) by mouth in the morning and 1 tablet (40 mg total) before bedtime. PAROXETINE HCL ORAL 20 mg daily. spironolactone (ALDACTONE) 25 mg tablet Take 0.5 tablets (12.5 mg total) by mouth in the morning. 45 tablet 1 sucralfate (CARAFATE) 1 gram tablet Take 1 tablet (1 g total) by mouth in the morning and 1 tablet (1 g total) at noon and 1 tablet (1 g total) in the evening and 1 tablet (1 g total) before bedtime. valsartan (DIOVAN) 40 mg tablet Take 1 tablet (40 mg total) by mouth in the morning. 30 tablet 11 warfarin (COUMADIN) 5 mg tablet TAKE ONE AND ONE HALF TO TWO TABLETS BY MOUTH DAILY DIRECTED 180 tablet 3 bumetanide (BUMEX) 1 mg tablet Take 1 tablet (1 mg total) by mouth 2 (two) times a day. Take extra 1 mg tab in AM when weight is 236 or greater or swelling 270 tablet 3 No current facility-administered medications for this visit. ALLERGIES Allergies Allergen Reactions Celecoxib Dizziness Niacin Rash Prasugrel Other (See Comments) and Rash OBJECTIVE VITAL SIGNS BP 122/58 Pulse 53 Ht 182.9 cm (6' 0.01 ) Wt 107.6 kg (237 lb 3.2 oz) SpO2 96% BMI 32.16 kg/m Last 3 Weight Readings 07/26/24 1355 Weight: 107.6 kg (237 lb 3.2 oz) Body mass index is 32.16 kg/m . No data recorded Pulse Ox: @FLOWSTAT(10:24)@ Supplemental O2: LAST 3 WEIGHTS PULLED FROM EPIC Last 3 Weight Readings 07/26/24 1355 Weight: 107.6 kg (237 lb 3.2 oz) Body mass index is 32.16 kg/m . PHYSICAL EXAM General appearance: Awake, alert, cooperative Head: Normocephalic, without obvious abnormality, atraumatic Eyes: Conjunctivae/corneas clear, EOM's intact Neck: JVD - 10 cm above sternal notch Lungs: clear to auscultation bilaterally and no rhonchi or crackles , ' symmetric Heart: regular rate and rhythm, S1, S2 normal, no murmur, click, rub or gallop Abdomen: Soft, non-tender, bowel sounds normal, no organomegaly Extremities: extremities normal, atraumatic, no cyanosis or edema Skin: Skin color, turgor normal, no rashes or lesions Neurologic: Grossly normal Past Medical History: Diagnosis Date Allergic Anemia Arthritis Atrial fibrillation ([facility] Back pain Cataract CHF (congestive heart failure) ([facility]) Coronary artery disease 3 stents 2004 Diabetes mellitus type 2, controlled ([facility]) GERD (gastroesophageal reflux disease) Hyperlipidemia Hypertension Peptic ulceration Pneumonia Presence of coronary angioplasty implant and graft Recurrent UTI Shortness of breath Skin cancer and bladder Stroke ([facility]) TIA (transient ischemic attack) Urinary frequency Visual impairment Past Surgical History: Procedure Laterality Date APPENDECTOMY BACK SURGERY BIOPSY BLADDER N/A 08/27/2023 Performed by Fabián Bishop MD at [facility] CARDIAC CATHETERIZATION CAROTID STENT 3 valves COLONOSCOPY DIAGNOSTIC / SCREENING N/A 01/02/2024 Performed by Anni Lau MD at [facility] CYSTOSCOPY N/A 08/27/2023 Performed by Fabián Bishop MD at [facility] CYSTOSCOPY N/A 08/19/2022 Performed by Fabián Bishop MD at [facility] CYSTOSCOPY N/A 11/12/2021 Performed by Fabián Bishop MD at [facility] CYSTOSCOPY N/A 05/14/2021 Performed by Fabián Bishop MD at [facility] CYSTOSCOPY N/A 05/03/2020 Performed by Fabián Bishop MD at [facility] CYSTOSCOPY N/A 12/13/2019 Performed by Fabián Bishop MD at [facility] CYSTOSCOPY N/A 03/25/2018 Performed by Fabián Bishop MD at [facility] CYSTOSCOPY N/A 08/04/2017 Performed by Fabián Bishop MD at [facility] CYSTOSCOPY DILATATION URETHRAL N/A 08/27/2023 Performed by Fabián Bishop MD at [facility] CYSTOSCOPY DILATATION URETHRAL N/A 03/03/2023 Performed by Fabián Bishop MD at [facility] CYSTOSCOPY DILATATION URETHRAL N/A 11/12/2021 Performed by Fabián Bishop MD at [facility] CYSTOSCOPY DILATATION URETHRAL N/A 05/14/2021 Performed by Fabián Bishop MD at [facility] CYSTOSCOPY DILATATION URETHRAL N/A 12/13/2019 Performed by Fabián Bishop MD at [facility] CYSTOSCOPY DILATATION URETHRAL Bilateral 09/23/2018 Performed by Fabián Bishop MD at [facility] CYSTOSCOPY DILATATION URETHRAL BULBAR N/A 08/19/2022 Performed by Fabián Bishop MD at [facility] CYSTOSCOPY RETROGRADE PYELOGRAM Bilateral 03/03/2023 Performed by Fabián Bishop MD at [facility] CYSTOSCOPY RETROGRADE PYELOGRAM Bilateral 11/15/2020 Performed by Fabián Bishop MD at [facility] CYSTOSCOPY RETROGRADE PYELOGRAM Bilateral 04/21/2019 Performed by Fabián Bishop MD at [facility] CYSTOSCOPY RETROGRADE PYELOGRAM Bilateral 01/13/2017 Performed by Fabián Bishop MD at [facility] CYSTOSCOPY W/ INTERNAL URETHROTOMY 08/14/2015 stent removal CYSTOSCOPY WITH DILATATION N/A 05/03/2020 Performed by Fabián Bishop MD at [facility] ESOPHAGOGASTRODUODENOSCOPY DIAGNOSTIC N/A 03/05/2024 Performed by Anni Lau MD at [facility] ESOPHAGOGASTRODUODENOSCOPY DIAGNOSTIC N/A 01/02/2024 Performed by Anni Lau MD at [facility] EXTERNAL EAR SURGERY left ear, cancer removal EYE SURGERY HERNIA REPAIR february 2010 and 2012 JOINT REPLACEMENT LASIK PROSTATE SURGERY SKIN BIOPSY SPINE SURGERY TONSILLECTOMY TOTAL KNEE ARTHROPLASTY TRANSURETHRAL RESECTION OF BLADDER TUMOR 07/05/2015 TRANSURETHRAL RESECTION OF PROSTATE Family History Problem Relation Age of Onset Heart failure Father No Known Problems Mother Social History Socioeconomic History Marital status: Spouse name: Not on file Number of children: Not on file Years of education: Not on file Highest education level: Not on file Occupational History Not on file Tobacco Use Smoking status: Former Current packs/day: 1.00 Types: Cigarettes Smokeless tobacco: Never Vaping Use Vaping status: Never Used Substance and Sexual Activity Alcohol use: No Drug use: No Sexual activity: Not Currently Partners: Male control/protection: None Other Topics Concern Caffeine Use Yes Social History Narrative Not on file Social Drivers of Health Financial Resource Strain: Low Risk (01/29/2024) Received from [facility] Overall Financial Resource Strain (CARDIA) Difficulty of Paying Living Expenses: Not hard at all Food Insecurity: No Food Insecurity (06/09/2024) Hunger Screening Food Insecurity - Worry: Never True Food Insecurity - Inability: Never True Transportation Needs: No Transportation Needs (01/29/2024) Received from [facility] PRAPARE - Transportation Lack of Transportation (Medical): No Lack of Transportation (Non-Medical): No Physical Activity: Inactive (01/29/2024) Received from [facility] Exercise Vital Sign Days of Exercise per Week: 0 days Minutes of Exercise per Session: 0 min Stress: Stress Concern Present (01/29/2024) Received from [facility] [employer] [place] [employer] - Occupational Stress Questionnaire Feeling of Stress : To some extent Social Connections: Socially Isolated (01/29/2024) Received from [facility] Social Connection and Isolation Panel [NHANES] Frequency of Communication with Friends and Family: Once a week Frequency of Social Gatherings with Friends and Family: Never Attends [employer] Services: Never Active Member of Clubs or Organizations: No Attends Club or Organization Meetings: Never Marital Status: Interpersonal Safety: Not At Risk (12/26/2023) Humiliation, Afraid, Rape, and Kick questionnaire Fear of Current or Ex-Partner: No Emotionally Abused: No Physically Abused: No Sexually Abused: No Housing Instability: Unknown (01/29/2024) Received from [facility] Housing Stability Vital Sign Unable to Pay for Housing in the Last Year: No Number of Times Moved in the Last Year: Not on file Homeless in the Last Year: No LUCILA Packer APRN-CNP 03/01/24 1341 LAUREANO Woods 05/10/24 1502 Review of Systems Constitutional: Negative for activity change, appetite change and fatigue. HENT: Negative for congestion, nosebleeds and postnasal drip. Cardiovascular: Positive for leg swelling. Negative for chest pain and palpitations. Respiratory: Positive for cough (mucus) and shortness of breath (with exertion). Negative for chest tightness and wheezing. Hematologic/Lymphatic: Does not bruise/bleed easily. Musculoskeletal: Negative for joint swelling. Gastrointestinal: Positive for abdominal distention. Negative for abdominal pain, nausea and vomiting. Genitourinary: Negative for frequency. Neurological: Negative for dizziness, headaches, light-headedness and syncope. Psychiatric/Behavioral: Positive for sleep disturbance (hard to stay asleep). The patient is not nervous/anxious. LAUREANO Woods 07/26/24 1506 documented in this encounter [facility] 07-26-2024 Instructions LAUREANO Woods - 07/26/2024 2:30 PM EST Okay to take an extra 1 mg of Bumex in the morning when your weight is 236 or greater or notice swelling Continue to meet with pharmacist for adjustment of heart failure medications documented in this encounter [facility] 07-26-2024 History of Present illness Narrative Images from the original note were not included. Subjective Patient ID: Sheeba Adames is a 79 y.o. male who presents for DM Foot Care (Sheeba Adames is a 79 y.o. male who presents for DM Foot Care. PCP: [place] 06/09/24 A1C: 7.4 BS: 134). HPI HPI Onychomycosis/Toenail Fungus: Toenail deformity. Location: indicates all digits with thickened, deformed and discolored toenails. Duration: chronic toenail deformity, multiple years duration. Severity of symptoms: mild; acknowledging diabetic neuropathy involving both feet. Onset: gradual, without injury or trauma. Status: problematic/symptomatic over the past several weeks or so. Context: hard to trim, hard to reach; self-care is difficult, ineffective and not practical; increasing risk exposure. Family members are unable to provide effective care. Characteristics: discolored, thickened, , pressure , ingrowing , elongated , crusty , /lifting; without bleeding or drainage. Relieved bypatient is well satisfied with palliative care measures. Previous Treatment: palliative care as noted. Risk factors: Type II diabetes/IDDM. Diabetic peripheral vasculopathy. Chronic venous insufficiency/stasis ulceration by history. CVA (2015). Medical comorbidities. Polypharmacy. Anti-coagulant therapy. Diabetic peripheral neuropathy. Diabetic vasculopathy/CVI. Mobility and flexibility restraints. Toenail deformity. Shoe and/or digital trauma and related complications. Aggravated by: shoe gear , pressure , walking; catching and snagging on clothing etc.. Medications Current Outpatient Medications: acetaminophen (Tylenol) 325 MG tablet, Take 650 mg by mouth every 4 (four) hours if needed for mild pain, Disp: , Rfl: aspirin 81 MG EC tablet, 1 tablet DAILY (route: oral), Disp: , Rfl: atorvastatin (Lipitor) 80 MG tablet, 1 (one) time each day at the same time., Disp: , Rfl: bumetanide (Bumex) 1 MG tablet, Take 1 mg by mouth in the morning and 1 mg in the evening., Disp: , Rfl: dapagliflozin (Farxiga) 10 MG, Take 10 mg by mouth in the morning., Disp: , Rfl: ferrous sulfate 325 (65 Fe) MG EC tablet, Take 325 mg by mouth in the morning and 325 mg at noon and 325 mg in the evening. Take with meals. Do not crush, chew, or split.., Disp: , Rfl: insulin aspart, with niacinamide, (Fiasp FlexTouch) 100 UNIT/ML injection, SSI TID before [id number] 2u, 201-250 4u, 251-300 6u, 301-350 8u, 351-400 10u. SSI HS-201-250 2u, 251-300 4u, 301-350 6u, 351-400 8u, Disp: 10 mL, Rfl: 1 magnesium oxide (Mag-Ox) 400 mg tablet, Take 400 mg by mouth in the morning and 400 mg before bedtime., Disp: , Rfl: metoprolol succinate XL (Toprol-XL) 50 MG 24 hr tablet, Take 50 mg by mouth Daily Do not crush or chew. Per cardio, Disp: , Rfl: pantoprazole (ProtoNix) 40 MG EC tablet, Take 1 tablet (40 mg) by mouth in the morning. Take before meals. Do not crush, chew, or split.., Disp: 60 tablet, Rfl: 1 PARoxetine (Paxil) 20 MG tablet, Take 1 tablet (20 mg) by mouth in the morning., Disp: 90 tablet, Rfl: 1 sucralfate (Carafate) 1 g tablet, Take 1 tablet (1 g) by mouth in the morning and 1 tablet (1 g) at noon and 1 tablet (1 g) in the evening and 1 tablet (1 g) before bedtime. Take before meals., Disp: 120 tablet, Rfl: 1 valsartan (Diovan) 40 MG tablet, Take 40 mg by mouth in the morning., Disp: , Rfl: warfarin (Coumadin) 5 MG tablet, 1 (one) time each day at the same time Managed per coumadin clinic., Disp: , Rfl: Accu-Chek Softclix Lancets lancets, use 1 LANCET to TEST BLOOD SUGAR once daily, Disp: 100 each, Rfl: 1 albuterol HFA 90 mcg/act inhaler, Inhale 2 puffs every 4 (four) hours if needed for wheezing, Disp: 18 g, Rfl: 0 Continuous Glucose Retort Furnace Operator (FreeStyle Cathy 3 [place]) device, , Disp: , Rfl: Continuous Glucose Sensor (FreeStyle Cathy 3 Sensor) [facility], 1 Device every 14 (fourteen) days Pt to check bs 4 x daily and use sliding scale insulin her scale., Disp: , Rfl: Elastic Bandages & Supports (Tubular Stretch Bandage) mis, Size E. Wash and dry legs daily, apply moisturizer. Apply to tubular bandage to bilateral lower legs daily, may remove at bedtime., Disp: 1 each, Rfl: 3 glucose blood (Accu-Chek Irina Plus) test strip, 1 each by Other route in the morning and 1 each at noon and 1 each in the evening and 1 each before bedtime. Take before meals., Disp: 150 each, Rfl: 3 insulin pen needle 31G X 8 mm mis, Use 4 x daily., Disp: 100 each, Rfl: 11 nitroglycerin (Nitrostat) 0.4 MG SL tablet, Sublingual, Disp: , Rfl: Vibegron (Gemtesa) 75 MG tablet, Take 75 mg by mouth in the morning., Disp: , Rfl: Allergies Celecoxib, Niacin, and Prasugrel Past Surgical History Past Surgical History: Procedure Laterality Date APPENDECTOMY CATARACT EXTRACTION Right CORONARY STENT PLACEMENT x3 CYSTOSCOPY CYSTOSCOPY 11/2019 HERNIA REPAIR JOINT REPLACEMENT KNEE ARTHROSCOPY W/ DEBRIDEMENT Bilateral LASIX RENOGRAM LUMBAR SPINE SURGERY L4-5 NASAL SEPTUM SURGERY SPINE SURGERY TOTAL KNEE ARTHROPLASTY Bilateral TRANSURETHRAL RESECTION OF PROSTATE Family History Family History Problem Relation Name Age of Onset Cancer Mother Savannah Kim Diabetes Mother Savannah Kim Hypertension Father Sheeba Kim Heart disease Father Shebea Kim No Known Problems Sister 2 No Known Problems Daughter 1 No Known Problems Son 1 Objective General Examination: GENERAL EXAMINATION: Alert and oriented. pleasant disposition. Presents ambulatory with walker assist. Wearing new balance extra depth shoes with accommodative orthoses. Accompanied by his spouse, Grace. FOOT EXAM: Date of Last Foot Exam: 07/26/2024 Sensory testing performed: sensations diminished Sensory and motor testing performed: strength normal Pedal pulse taking performed: 1+ Vascular: DORSALIS PEDIS PULSE: 1/4, bilaterally. POSTERIOR TIBIAL PULSE: faintly palpable, bilaterally. TEMPERATURE GRADIENT: warm to cool. EDEMA: brawny edema bilateral lower extremities and ankles; moderate-severe stasis pigmentation and dermatosis; several small superficial erosive areas are noted. CAPILLARY FILLING TIME(sec): capillary fill intact bilateral digits less than 3 secs. Neurologic: SHARP SENSATION: tactile and light touch sensation is compromised over the digital areas. SEMMES-OLGA 5.07 MONOFILAMENT: Unable to localize multiple points plantarly. Dermatologic: SKIN FINDINGS: intact. Skin turgor is fair. HYPERTROPHIC LESION: no forefoot or digital keratotic pressure lesions are noted. NAIL PATHOLOGY: Bilateral great toes: DSO/pincer toenail deformity: Toenail dystrophy, elongation, thickening, discoloration, crumbly texture, the distal margins are cryptotic, keratotic, mildly tender, non-inflamed, without drainage. 2nd digit right foot: TDO deformity: Toenail dystrophy, thickening, clubbing, discoloration, subtotal detachment, periungual hyperkeratosis, without drainage. All remaining digits: Varying degrees of toenail dystrophy, thickening, elongation, discoloration, periungual hyperkeratosis, without drainage. MYCOSIS SCALE: total with debris, 2nd digit right foot. INTERDIGITAL MACERATION: clean, dry, non-inflamed. ULCER: Effective healing of wounds associated with chronic venous insufficiency. SKIN PATHOLOGY: texture, turgor, hair growth, within normal limits. Orthopedic: JOINT RANGE OF MOTION: maintains functional ankle, subtalar, midtarsal and MTP joint range of motion. DEFORMITIES: central digits are mildly contracted Radiology: Assessment/Plan 1. 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 2. Type II diabetes. 3. Diabetic peripheral vasculopathy (Q8). 4. 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 5. CVA (2015). 6. Chronic venous insufficiency bilateral; stasis ulceration by history. Plan: Notes: conservative and palliative care measures are preferred, understood and again indicated. Diabetic education and assessment relative to the high risk foot condition. Encourage compliance with elevation and gradient compression sock and/or Tubigrip therapy. Discussed fluid and salt intake restrictions. Hygiene and skin care measures discussed Procedure: Toenail debridement: Aseptic technique: Hand and power instrumentation: Onychodebridement in length and thickness, with curettage of any cryptotic margins, all periungual debris; providing effective pressure relief; reducing shoe and digital trauma; reducing potential risks associated with a high risk diabetic foot and lower extremity condition and related complications This note was created with the assistance of a speech recognition program. While intending to generate a timely document that accurately reflects the content of the visit, no guarantee can be provided that every grammatical or spelling mistake has been or will be identified or corrected. Thank you for your understanding. Sunil Hernandez DPM documented in this encounter [facility] 07-26-2024 Instructions Sunil Hernandez DPM - 07/26/2024 10:30 AM EST As noted documented in this encounter [facility] 07-22-2024 Miscellaneous Notes Patient's , Mar, called to advise that patient's weight is down to 240 after the 3 doses of Bumex. Please call with any questions at [phone]. Noted. Will continue current plan as patient will see DIRECTOR OF MUSIC Friday. Evelyn Steward PharmD, [facility] July 22, 2024 11:51 AM documented in this encounter [facility] 07-22-2024 Telephone encounter Note Patient's , Mar, called to advise that patient's weight is down to 240 after the 3 doses of Bumex. Please call with any questions at [phone]. [facility] 07-22-2024 Telephone encounter Note Noted. Will continue current plan as patient will see DIRECTOR OF MUSIC Friday. Evelyn Steward PharmD, R[place]HS July 22, 2024 11:51 AM [facility] 07-20-2024 History of Present illness Narrative [facility] MEDICATION THERAPY MANAGEMENT [address] [facility] [id number] SUBJECTIVE: Referring Provider: Delbert Hassan NP [facility] Referring Provider: Yes Consult Agreement: Yes Established with Heart Failure Clinic: Yes PCP: Shabana Costello MD Sheeba Adames is a 79 y.o. (White or [1]) male who presents for a follow up MTM visit for medication optimization and management of heart failure. At last PharmD visit, valsartan increased to 40 mg daily. Sheeba Adames is accompanied by his . Patient endorses ~6 pounds of weight gain at home and this is consistent in office. He has lower extremity edema and reports this is secondary to not limiting his fluid. Reviewed fluid restriction goals. Patient is tolerating medication without concern. Patient's last EF was 35-40 % on 12/31/2023 NYHA Class 3 , Stage C DIET Sodium intake: Not adding salt, working to limit pre-packaged foods Potassium intake: Currently eating potassium rich foods d/t low K+ Fluid intake: 64oz day; patient aware of limit. Discussed to include drinks, soups, jello, popsickles, etc. Current Heart Failure Regimen: Medication Class Target Doses for HFrEF Patient Regimen Beta-jeferson Carvedilol 25-50 mg twice daily Metoprolol succinate 200 mg daily Bisoprolol 10 mg daily Metoprolol 50 mg daily At target dose: no BE Inhibitor Lisinopril 20-40 mg daily Captopril 50 mg three times daily Enalapril 10-20 mg twice daily Ramipril 10 mg daily Valsartan 40 mg daily At target dose: no ARB Losartan 150 mg daily Candesartan 32 mg daily Valsartan 160 mg twice daily ARNI Sacubitril/valsartan 97/103 mg twice daily SGLT2 Inhibitor Dapagliflozin 10 mg daily Empagliflozin 10 mg daily Farxiga 10 mg daily At target dose: yes Hydralazine/Nitrate Hydralazine 75 mg three times daily Isosorbide dinitrate 40 mg three times daily N/A At target dose: not applicable Diuretic Furosemide Bumetanide Torsemide Bumetanide 1 mg BID Other MEDICATION ADHERENCE/COST Patient reports being adherent to medications Patient states medications are affordable. BLOOD PRESSURES & WEIGHTS Patient does check his blood pressure at home Date Blood Pressure Heart Rate Weight Forgot log at home. Running ~110s/70-80 HR in the 60s-70s at home OBJECTIVE: VITALS: BP 114/71 Pulse (!) 47 Wt 111.9 kg (246 lb 9.6 oz) SpO2 100% BMI 33.44 kg/m Caffeine intake within 60 minutes: No Smoking status: non-smoker (quit 40 years ago) Tobacco cessation interest if current smoker: No Weight: Wt Readings from Last 3 Encounters: 07/20/24 111.9 kg (246 lb 9.6 oz) 06/24/24 108.9 kg (240 lb) 06/09/24 108.4 kg (239 lb) Lab Results Component Value Date SODIUM 143 07/08/2024 K 3.8 07/08/2024 BUN 48 (H) 07/08/2024 CREATININE 1.83 (H) 07/08/2024 EGFR 37 (L) 07/08/2024 Lab Results Component Value Date CHOL 120 (L) 05/25/2021 EXTCHOL 106 11/30/2021 HDL 38 (L) 05/25/2021 EXTCHOHDL 3 11/30/2021 LDLCALC 61 05/25/2021 EXTLDL 46 11/30/2021 TRIG 107 05/25/2021 EXTRIG 136 11/30/2021 Lab Results Component Value Date IRON 18 (L) 12/24/2023 TIBC 140 (L) 12/24/2023 FERRITIN 522 (H) 12/24/2023 IMMUNIZATIONS: Influenza Complete: Yes Pneumonia Complete: Yes; patient is going to confirm Shingles Complete: No Immunization History Administered Date(s) Administered COVID-19, mRNA, LNP-S, PF, 100mcg/0.5mL Dose 07/21/2020, 08/18/2020, 04/30/2021 Covid-19, Mrna, Lnp-s, Bivalent, Pf, 30mcg/0.3 ml 03/29/2022 Covid-19,mrna, Lnp-s, Pf, 50mcg/0.5ml 12+ 04/16/2023 Influenza, Trivalent, Adjuvanted 04/05/2024 ASSESSMENT/PLAN: Heart Failure with Reduced Ejection Fraction: ASSESSMENT: Patient is not on maximally tolerated doses of guideline directed medical therapy. Still titrating Plan to retrial spironolactone as long as BMP is stable today Increase bumetanide to TID x2 days for volume overload EDUCATION: Discussed heart failure pathophysiology and management Reviewed DASH diet and BP goal Reviewed importance of low salt and fluid restricted diet Reviewed medication dosing, frequency, and possible side effects Immunizations: recommended Shingles Smoking cessation: n/a, patient is a former smoker MEDICATION PLAN: Diuretic: Continue bumetanide 1 mg BID ACEi/ARB/ARNI: Continue Valsartan to 40 mg daily Beta-jeferson: Continue metoprolol succinate 50 mg daily Aldosterone antagonist: Start spironolactone 12.5 mg daily SGLT2i: Continue Farxiga 10 mg daily Other: N/A Refill needed on cardiac-related medications? 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 PLAN: Recheck BMP today New baseline Scr appears to be 1.5-1.8 over the past 2 months We will continue current dosing of diuretic as patient's volume status and symptoms are improving. Renal function is overall stable compared with previous few months. FOLLOW UP: PharmD visit: 3 week(s) Cardiology MD or LESLEE visit: 1 week(s) Labs due in ISAIAS week(s) Signature: Evelyn Steward PharmD, [facility] 30 minute [id number] follow-up appointment. Evelyn Steward RPH 07/20/24 1143 documented in this encounter [facility] [employer] [facility] 07-20-2024 Instructions Evelyn Steward RPH - 07/20/2024 10:30 AM EST Follow up after today's visit: Increase bumetanide to 3 times per day for 07/20 and 07/21, then resume 2 times per day Complete BMP at the lab today- Evelyn will call with result If kidneys are stable, we will start spironolactone 12.5 mg (1/2 tab) daily Limit salt intake to 2 grams/day and fluid intake to 2 L/day Obtain and record daily weights and call the clinic (Phone #: [phone]) if you gain more than 5 lbs in one week. Check your blood pressure once daily and bring your blood pressure diary to your next clinic visit Avoid cardiotoxic medications such as NSAIDS (Advil, Aleve, Motrin etc) Do not miss any doses of medications. documented in this encounter [facility] 07-08-2024 History of Present illness Narrative 15 minute [id number] follow-up anticoagulation appointment. INR performed in office per protocol. INR 2.1 (goal range: 2.0-3.0). Patient reports: Taking warfarin dosing as documented. Missed or extra doses of warfarin: No Changes to medications: No Changes to lifestyle (diet / alcohol / smoking / activity): No Recent emergency department visit / hospitalization / health changes / new contraindication to current anticoagulant: No Signs/symptoms of bruising/bleeding or clotting or any intolerable adverse events: No Upcoming procedures: No Anticoagulant prescription needed: No Seen referring provider in the last year Duration of therapy reviewed Assessment: INR is remaining stable in therapeutic range on current warfarin regimen. Plan: Patient instructed to continue warfarin 7.5 mg Tue/Sat and 5 mg AOD. Check INR in 4 week(s). Patient verbalizes understanding of anticoagulant dosing instructions and information discussed. Dosing regimen, counseling, and follow-up appointment were provided to the patient. Patient reminded to call with questions or any medication changes. Patient instructed to seek medical attention if any major bleeding/bleeding that persists or worsens. Evelyn Steward RPH 07/08/24 1109 documented in this encounter [facility] 07-01-2024 Miscellaneous Notes Crystal from Dr. Shabana Costello's office left a message yesterday at 4:30 p.m stating their office received a call from the home health nurse who did a visit with patient. The nurse states patient is coughing up dark red sputum. She, herself, saw the sputum. The nurse reports lungs being clear, breathing ok, pt not in any distress, and weight was 233 lbs. Overall, patient is feeling fine except for a sore throat. Carey states she will inform PCP. Carey just wanted to inform PPMM of the above. documented in this encounter [facility] 07-01-2024 Telephone encounter Note Crystal from Dr. Shabana Costello's office left a message yesterday at 4:30 p.m stating their office received a call from the home health nurse who did a visit with patient. The nurse states patient is coughing up dark red sputum. She, herself, saw the sputum. The nurse reports lungs being clear, breathing ok, pt not in any distress, and weight was 233 lbs. Overall, patient is feeling fine except for a sore throat. Carey states she will inform PCP. Carey just wanted to inform PPMM of the above. [facility] 06-29-2024 History of Present illness Narrative Prescription sent documented in this encounter [facility] 06-24-2024 History of Present illness Narrative [facility] MEDICATION THERAPY MANAGEMENT [address] [facility] [id number] SUBJECTIVE: Referring Provider: Delbert Hassan NP [facility] Referring Provider: Yes Consult Agreement: Yes Established with Heart Failure Clinic: Yes PCP: Shabana Costello MD Sheeba Adames is a 79 y.o. (White or [1]) male who presents for a follow up [facility] visit for medication optimization and management of heart failure. At last PharmD visit, Farxiga 10 mg daily added. Sheeba Adames is accompanied by his . Patient's last EF was 35-40 % on 12/31/2023 NYHA Class 3 , Stage C DIET Sodium intake: Not adding salt, working to limit pre-packaged foods Potassium intake: Currently eating potassium rich foods d/t low K+ Fluid intake: 64oz day; patient aware of limit. Discussed to include drinks, soups, jello, popsickles, etc. Current Heart Failure Regimen: Medication Class Target Doses for HFrEF Patient Regimen Beta-jeferson Carvedilol 25-50 mg twice daily Metoprolol succinate 200 mg daily Bisoprolol 10 mg daily Metoprolol 50 mg daily At target dose: no BE Inhibitor Lisinopril 20-40 mg daily Captopril 50 mg three times daily Enalapril 10-20 mg twice daily Ramipril 10 mg daily Valsartan 20 mg daily At target dose: no ARB Losartan 150 mg daily Candesartan 32 mg daily Valsartan 160 mg twice daily ARNI Sacubitril/valsartan 97/103 mg twice daily SGLT2 Inhibitor Dapagliflozin 10 mg daily Empagliflozin 10 mg daily Farxiga 10 mg daily At target dose: yes Hydralazine/Nitrate Hydralazine 75 mg three times daily Isosorbide dinitrate 40 mg three times daily N/A At target dose: not applicable Diuretic Furosemide Bumetanide Torsemide Bumetanide 1 mg BID Other MEDICATION ADHERENCE/COST Patient reports being adherent to medications Patient states medications are affordable. BLOOD PRESSURES & WEIGHTS Patient does check his blood pressure at home Date Blood Pressure Heart Rate Weight Forgot log at home. Running ~130/70 HR in the 70s consistently OBJECTIVE: VITALS: BP 136/71 Pulse 58 Wt 108.9 kg (240 lb) BMI 32.55 kg/m Caffeine intake within 60 minutes: No Smoking status: non-smoker (quit 40 years ago) Tobacco cessation interest if current smoker: No Weight: Wt Readings from Last 3 Encounters: 06/24/24 108.9 kg (240 lb) 06/09/24 108.4 kg (239 lb) 05/25/24 108.4 kg (239 lb) Lab Results Component Value Date SODIUM 144 05/24/2024 K 3.8 05/24/2024 BUN 27 05/24/2024 CREATININE 1.67 (H) 05/24/2024 EGFR 41 (L) 05/24/2024 Lab Results Component Value Date CHOL 120 (L) 05/25/2021 EXTCHOL 106 11/30/2021 HDL 38 (L) 05/25/2021 EXTCHOHDL 3 11/30/2021 LDLCALC 61 05/25/2021 EXTLDL 46 11/30/2021 TRIG 107 05/25/2021 EXTRIG 136 11/30/2021 Lab Results Component Value Date IRON 18 (L) 12/24/2023 TIBC 140 (L) 12/24/2023 FERRITIN 522 (H) 12/24/2023 IMMUNIZATIONS: Influenza Complete: Yes Pneumonia Complete: Yes; patient is going to confirm Shingles Complete: No Immunization History Administered Date(s) Administered COVID-19, mRNA, LNP-S, PF, 100mcg/0.5mL Dose 07/21/2020, 08/18/2020, 04/30/2021 Covid-19, Mrna, Lnp-s, Bivalent, Pf, 30mcg/0.3 ml 03/29/2022 Covid-19,mrna, Lnp-s, Pf, 50mcg/0.5ml 12+ 04/16/2023 Influenza, Trivalent, Adjuvanted 04/05/2024 ASSESSMENT/PLAN: Heart Failure with Reduced Ejection Fraction: ASSESSMENT: Patient is not on maximally tolerated doses of guideline directed medical therapy. Still titrating Increase valsartan to 40 mg daily Plan to retrial spironolactone after being on Farxiga for at least a month EDUCATION: Discussed heart failure pathophysiology and management Reviewed DASH diet and BP goal Reviewed importance of low salt and fluid restricted diet Reviewed medication dosing, frequency, and possible side effects Immunizations: recommended Shingles Smoking cessation: n/a, patient is a former smoker MEDICATION PLAN: Diuretic: Continue bumetanide 1 mg BID ACEi/ARB/ARNI: Increase Valsartan to 40 mg daily Beta-jeferson: Continue metoprolol succinate 50 mg daily Aldosterone antagonist: N/A- plan to retrial at 12.5 mg daily in the future SGLT2i: Continue Farxiga 10 mg daily Other: N/A Refill needed on cardiac-related medications? 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 PLAN: Recheck BMP in ~2 weeks New baseline Scr appears to be 1.5-1.8 over the past 2 months We will continue current dosing of diuretic as patient's volume status and symptoms are improving. Renal function is overall stable compared with previous few months. FOLLOW UP: PharmD visit: 3 week(s) Cardiology MD or LESLEE visit: 1 week(s) Labs due in 2 week(s) Signature: Evelyn Steward PharmD, [facility] 30 minute owom-tl-ovon follow-up appointment. Evelyn Steward RP 06/24/24 1517 documented in this encounter [facility] 06-24-2024 Instructions Evelyn Steward RP - 06/24/2024 1:15 PM EST Follow up after today's visit: Increase valsartan 40 mg daily Check BMP in 2 weeks (on or after 07/12/24) Limit salt intake to 2 grams/day and fluid intake to 2 L/day Obtain and record daily weights and call the clinic (Phone #: [phone]) if you gain more than 5 lbs in one week. Check your blood pressure once daily and bring your blood pressure diary to your next clinic visit Avoid cardiotoxic medications such as NSAIDS (Advil, Aleve, Motrin etc) Do not miss any doses of medications. documented in this encounter [facility] 06-22-2024 Miscellaneous Notes Patient's , Mar, called to find out if there are any labs that patient needs to have done. Please call to discuss at [phone]. Spoke with Grace-- discussed we will decide in office when next set of labs will be due. Patient recently started Farxiga (~1 week ago) Reviewed labs done at PCP 06/11-- overall stable w/ Scr 1.59 and K+ 3.6. Evelyn Steward PharmD, [facility] June 24, 2024 9:07 AM documented in this encounter [facility] 06-22-2024 Telephone encounter Note Patient's , Mar, called to find out if there are any labs that patient needs to have done. Please call to discuss at [phone]. [facility] 06-22-2024 Telephone encounter Note Spoke with Grace-- discussed we will decide in office when next set of labs will be due. Patient recently started Farxiga (~1 week ago) Reviewed labs done at PCP 06/11-- overall stable w/ Scr 1.59 and K+ 3.6. [facility] Steward [facility], [facility] June 24, 2024 9:07 AM [facility] 06-14-2024 Miscellaneous Notes Patients Mar called to inform the Urologist order Durificef 500 BID for 7 days, starting today. Farxiga was received today also and he will start that tomorrow. Mar can be called at [phone] to discuss further. Returned call to Grace and BENJAMIN: no DDI with new antibiotic. Encouraged to let us know if any GI side effects from therapy. Noted Farxiga arrival Encouraged to call with any further needs. Evelyn Steward PharmD, [facility] June 14, 2024 4:02 PM documented in this encounter [facility] 06-14-2024 Telephone encounter Note Patients Mar called to inform the Urologist order Durificef 500 BID for 7 days, starting today. Farxiga was received today also and he will start that tomorrow. Mar can be called at [phone] to discuss further. [facility] 06-14-2024 Telephone encounter Note Returned call to Grace and LM: no DDI with new antibiotic. Encouraged to let us know if any GI side effects from therapy. Noted Farxiga arrival Encouraged to call with any further needs. Evelyn Steward PharmD, BCPS June 14, 2024 4:02 PM [facility] Miscellaneous Notes Patient's , Grace, called. She states Evelyn can view the BMP results. She also states patient has not yet received Farxiga through PAP. is requesting a call back at [phone]. Images from the original note were not included. Per tracking number on [place] [employer] [place] shipping notification the patient's farxiga is en route and expected to be delivered by 9 pm on 06/11/2024. Spoke with Grace. Labs look good. Farxiga should arrive this evening. Grace does not address needs updated in [facility]-- it should be [facility]. Evelyn Steward PharmD, [facility] June 11, 2024 2:14 PM documented in this encounter [facility] 06-11-2024 Telephone encounter Note Patient's , Grace, called. She states Evelyn can view the BMP results. She also states patient has not yet received Farxiga through PAP. is requesting a call back at [phone]. [facility] 06-11-2024 Telephone encounter Note Images from the original note were not included. Per tracking number on [place] [employer] [place] shipping notification the patient's farxiga is en route and expected to be delivered by 9 pm on 06/11/2024. [facility] 06-11-2024 Telephone encounter Note Spoke with Grace. Labs look good. Farxiga should arrive this evening. Grace does not address needs updated in [facility]-- it should be [facility]. Evelyn Steward PharmD, [facility] June 11, 2024 2:14 PM [facility] [facility] 06-09-2024 History of Present illness Narrative Images from the original note were not included. Sheeba Adames is a 79 y.o. male presents with chief complaint of No chief complaint on file. HPI: Patient here for 6 month follow up, states he is checking his sugars at home right now due to needing the Cathy again. SUBJECTIVE: MEDICATIONS: ALLERGIES Current Outpatient Medications Medication Instructions Accu-Chek Softclix Lancets lancets use 1 LANCET to TEST BLOOD SUGAR once daily acetaminophen (TYLENOL) 650 mg, Every 4 hours PRN albuterol HFA 90 mcg/act inhaler 2 puffs, Inhalation, Every 4 hours PRN aspirin 81 MG EC tablet 1 tablet DAILY (route: oral) atorvastatin (Lipitor) 80 MG tablet Every 24 hours bumetanide (BUMEX) 1 mg, 2 times daily Continuous Glucose Retort Furnace Operator (FreeStyle Cathy 3 [place]) device No dose, route, or frequency recorded. Continuous Glucose Sensor (FreeStyle Cathy 3 Sensor) misc 1 Device, Every 14 days dapagliflozin (FARXIGA) 10 mg, Daily RT Elastic Bandages & Supports (Tubular Stretch Bandage) [facility] Size E. Wash and dry legs daily, apply moisturizer. Apply to tubular bandage to bilateral lower legs daily, may remove at bedtime. ferrous sulfate 325 mg, 3 times daily with meals Gemtesa 75 mg, Daily RT glucose blood (Accu-Chek Irina Plus) test strip 1 each, Other, 4 times daily before meals and nightly insulin aspart, with niacinamide, (Fiasp FlexTouch) 100 UNIT/ML injection SSI TID before [id number] 2u, 201-250 4u, 251-300 6u, 301-350 8u, 351-400 10u. SSI [id number] 2u, 251-300 4u, 301-350 6u, 351-400 8u insulin pen needle 31G X 8 mm misc Use 4 x daily. magnesium oxide (MAG-OX) 400 mg, 2 times daily metoprolol succinate XL (TOPROL-XL) 50 mg, Daily nitroglycerin (Nitrostat) 0.4 MG SL tablet Sublingual pantoprazole (PROTONIX) 40 mg, Oral, Daily before breakfast, Do not crush, chew, or split. PARoxetine (PAXIL) 20 mg, Oral, Every morning spironolactone (ALDACTONE) 25 mg, Daily RT sucralfate (CARAFATE) 1 g, Oral, 4 times daily before meals and nightly valsartan (DIOVAN) 40 mg, Daily RT warfarin (Coumadin) 5 MG tablet Every 24 hours Allergies Allergen Reactions Celecoxib Unknown Niacin Unknown Prasugrel Unknown PAST MEDICAL HISTORY: SOCIAL HISTORY SURGICAL HISTORY: Past Medical History: Diagnosis Date A[place]fib [place] Actinic keratosis 11/04/2022 Allergic Angiopathy, diabetic ([facility]) 11/04/2022 Arthritis Benign prostatic hyperplasia without urinary obstruction 11/04/2022 Bladder cancer [place] 11/04/2022 x2 Bulbous urethral stricture 09/21/2021 Added automatically from request for surgery [id number] Cataract Cerebrovascular disease 11/04/2022 Clotting disorder [place] Coronary arteriosclerosis in [place] artery [place] 11/04/2022 Coronary artery disease involving [place] coronary artery of [place] heart without angina pectoris [place] 05/15/2010 Decubitus ulcer of right leg, stage 1 06/23/2022 Diabetes mellitus type II, non insulin dependent ([facility] Elevated PSA 11/04/2022 Heart disease 11/04/2022 History of myocardial infarction ([facility] 11/04/2022 History of stroke without residual deficits 02/17/2019 HL (hearing loss) Hyperlipidemia ([facility] 01/02/2006 Hypertension ([facility] 11/04/2022 Impaired fasting glucose 11/04/2022 Morbid obesity ([facility] 11/04/2022 Nephrolithiasis 11/04/2022 Neurologic disorder associated with diabetes mellitus ([facility] 11/04/2022 Paroxysmal atrial fibrillation ([facility] 05/03/2021 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 ([facility] 07/20/2019 Peripheral edema 11/04/2022 Poor peripheral circulation 11/04/2022 Presence of coronary angioplasty implant and graft 12/03/2022 Pure hypercholesterolemia ([facility] 02/17/2019 Scoliosis Skin cancer Skin ulcer of left lower leg with fat layer exposed [place] 12/03/2022 Stroke [place] Type 2 diabetes mellitus without complication ([facility] 11/04/2022 Venous insufficiency (chronic) (peripheral) 11/04/2022 Social History Tobacco Use Smoking status: Former Current packs/day: 1.50 Average packs/day: 1.5 packs/day for 15.0 years (22.5 ttl pk-yrs) Types: Cigarettes Smokeless tobacco: Never Vaping Use Vaping status: Never Used Substance Use Topics Alcohol use: Never Comment: Caffeine: 1-2 cups/day coffee Drug use: Never Past Surgical History: Procedure Laterality Date APPENDECTOMY CATARACT EXTRACTION Right CORONARY STENT PLACEMENT x3 CYSTOSCOPY CYSTOSCOPY 11/2019 HERNIA REPAIR JOINT REPLACEMENT KNEE ARTHROSCOPY W/ DEBRIDEMENT Bilateral LASIX RENOGRAM LUMBAR SPINE SURGERY L4-5 NASAL SEPTUM SURGERY SPINE SURGERY TOTAL KNEE ARTHROPLASTY Bilateral TRANSURETHRAL RESECTION OF PROSTATE REVIEW OF SYMPTOMS: Review of Systems Constitutional: Negative for fatigue. HENT: Negative. Respiratory: Negative. Negative for cough, shortness of breath and wheezing. Cardiovascular: Negative for chest pain and palpitations. Gastrointestinal: Negative. Genitourinary: Negative. Skin: Negative. Neurological: Negative. Psychiatric/Behavioral: Negative. OBJECTIVE: Vitals: 06/09/24 1026 BP: 132/70 Pulse: 60 Resp: 18 SpO2: 97% Physical Exam Vitals and nursing note reviewed. Cardiovascular: Rate and Rhythm: Normal rate and regular rhythm. Pulses: Normal pulses. Heart sounds: Normal heart sounds. Pulmonary: Effort: Pulmonary effort is normal. Breath sounds: Normal breath sounds. Abdominal: General: Abdomen is flat. Bowel sounds are normal. Palpations: Abdomen is soft. Musculoskeletal: General: Normal range of motion. Cervical back: Normal range of motion and neck supple. Skin: General: Skin is warm and dry. Neurological: General: No focal deficit present. Mental Status: He is oriented to person, place, and time. ASSESSMENT AND PLAN: Assessment/Plan Diagnoses and all orders for this visit: Type 2 diabetes mellitus without complication, without long-term current use of insulin ([facility])-stable contine on current medications. Patient continues to use his cgm and benefits with more controlled blood sugars. Patient is required to continue to monitor his blood sugars at elast 3 times daily. - Comprehensive metabolic panel; Future - Hemoglobin A1c; Future Type 2 diabetes mellitus with diabetic neuropathy, with long-term current use of insulin (CMS/HCC) LOUISA (acute kidney injury) (CMS/[facility])-awaitresults Chronic kidney disease, unspecified CKD stage No follow-ups on file. documented in this encounter [facility] 05-26-2024 Miscellaneous Notes Patient's , Mar, called to advise that the [facility] is more than $400/month from the pharmacy so they do need the PAP submitted. She also reports that their annual income in 2022 was $26,829. Please call with any questions. Noted. PAP application finalized and forwarded to [facility] for processing. Called Grace with update. Evelyn Steward PharmD, [facility] May 27, 2024 9:37 AM documented in this encounter [facility] 05-26-2024 Telephone encounter Note Patient's , Mar, called to advise that the [facility] is more than $400/month from the pharmacy so they do need the PAP submitted. She also reports that their annual income in 2022 was $26,829. Please call with any questions. [facility] 05-26-2024 Telephone encounter Note Noted. PAP application finalized and forwarded to [facility] for processing. Called Grace with update. Evelyn Steward PharmD, [facility] May 27, 2024 9:37 AM [facility] 05-25-2024 History of Present illness Narrative [facility] [address] [facility] [id number] SUBJECTIVE: Referring Provider: Delbert Hassan NP [facility] Referring Provider: Yes Consult Agreement: Yes Established with Heart Failure Clinic: Yes PCP: Shabana Costello MD Sheeba Adames is a 79 y.o. (White or [1]) male who presents for a follow up [place] visit for medication optimization and management of heart failure. At last PPC visit, furosemide changed to bumetanide 1 mg BID. At last DIRECTOR OF MUSIC visit, no additional changes made as labs were due to assess renal impact of diuretic change. Patient reports his weight has steadily been decreasing since changing from furosemide to bumetanide. Weight was up to 251 lbs at PPC visit 05/06. Is down to 139 in office today. Baselines is ~134 lbs. Patient endorses weight continues to decrease. BP is running ~120/80 at home and HR typically in the 60s. Of note HR was 47 in office today. Requested patient monitor closely at home and notify [facility] if HR continues to be in the 40s at home. HR was 55 at last [facility] visit and 62 at last PPC visit. Discussed risk verse benefit of SGLT2i addition. Patient has not had any yeast infections or skin infections in the genitourinary area, but does have a history of UTIs. Discussed patient during HF meeting with providers. We will trial therapy for renal and cardiac benefits. Reviewed side effects to monitor for. No samples available at [facility] currently. Order sent to Jacquie to explore cost. PAP signed in office if pharmacy is too expensive, we will submit PAP and spouse will call with income total for 2022. Of note, patient is diabetic with insulin on his medication list. Discussed this medication will impact BG as well. Patient notes he does not use insulin regularly and will monitor glucose, notifying PCP of any glycemic concerns. Sheeba Adames is accompanied by his . Patient's last EF was 35-40 % on 12/31/2023 NYHA Class 3 , Stage C DIET Sodium intake: Not adding salt, working to limit pre-packaged foods Potassium intake: Currently eating potassium rich foods d/t low K+ Fluid intake: 64oz day; patient aware of limit. Discussed to include drinks, soups, jello, popsickles, etc. Current Heart Failure Regimen: Medication Class Target Doses for HFrEF Patient Regimen Beta-jeferson Carvedilol 25-50 mg twice daily Metoprolol succinate 200 mg daily Bisoprolol 10 mg daily Metoprolol 50 mg daily At target dose: no BE Inhibitor Lisinopril 20-40 mg daily Captopril 50 mg three times daily Enalapril 10-20 mg twice daily Ramipril 10 mg daily Valsartan 20 mg daily At target dose: no ARB Losartan 150 mg daily Candesartan 32 mg daily Valsartan 160 mg twice daily ARNI Sacubitril/valsartan 97/103 mg twice daily SGLT2 Inhibitor Dapagliflozin 10 mg daily Empagliflozin 10 mg daily N/A At target dose: no Hydralazine/Nitrate Hydralazine 75 mg three times daily Isosorbide dinitrate 40 mg three times daily N/A At target dose: not applicable Diuretic Furosemide Bumetanide Torsemide Bumetanide 1 mg BID Other MEDICATION ADHERENCE/COST Patient reports being adherent to medications Patient states medications are affordable. BLOOD PRESSURES & WEIGHTS Patient does check his blood pressure at home Date Blood Pressure Heart Rate Weight Forgot log at home. Running ~130/80 HR in the 60s consistently OBJECTIVE: VITALS: BP 114/74 Pulse (!) 47 Wt 108.4 kg (239 lb) BMI 32.41 kg/m Caffeine intake within 60 minutes: No Smoking status: non-smoker (quit 40 years ago) Tobacco cessation interest if current smoker: No Weight: Wt Readings from Last 3 Encounters: 05/10/24 111.2 kg (245 lb 3.2 oz) 05/06/24 114.1 kg (251 lb 9.6 oz) 04/19/24 106.1 kg (234 lb) Lab Results Component Value Date SODIUM 144 05/24/2024 K 3.8 05/24/2024 BUN 27 05/24/2024 CREATININE 1.67 (H) 05/24/2024 EGFR 41 (L) 05/24/2024 Lab Results Component Value Date CHOL 120 (L) 05/25/2021 EXTCHOL 106 11/30/2021 HDL 38 (L) 05/25/2021 EXTCHOHDL 3 11/30/2021 LDLCALC 61 05/25/2021 EXTLDL 46 11/30/2021 TRIG 107 05/25/2021 EXTRIG 136 11/30/2021 Lab Results Component Value Date IRON 18 (L) 12/24/2023 TIBC 140 (L) 12/24/2023 FERRITIN 522 (H) 12/24/2023 IMMUNIZATIONS: Influenza Complete: Yes Pneumonia Complete: Yes; patient is going to confirm Shingles Complete: No Immunization History Administered Date(s) Administered COVID-19, mRNA, LNP-S, PF, 100mcg/0.5mL Dose 07/21/2020, 08/18/2020, 04/30/2021 Covid-19, Mrna, Lnp-s, Bivalent, Pf, 30mcg/0.3 ml 03/29/2022 Covid-19,mrna, Lnp-s, Pf, 50mcg/0.5ml 12+ 04/16/2023 Influenza, Trivalent, Adjuvanted 04/05/2024 ASSESSMENT/PLAN: Heart Failure with Reduced Ejection Fraction: ASSESSMENT: Patient is not on maximally tolerated doses of guideline directed medical therapy. Still titrating Start Farxiga 10 mg daily EDUCATION: Discussed heart failure pathophysiology and management Reviewed DASH diet and BP goal Reviewed importance of low salt and fluid restricted diet Reviewed medication dosing, frequency, and possible side effects Immunizations: recommended Shingles Smoking cessation: n/a, patient is a former smoker MEDICATION PLAN: Diuretic: Continue bumetanide 1 mg BID ACEi/ARB/ARNI: Continue Valsartan to 20 mg daily Beta-jeferson: Continue metoprolol succinate 50 mg daily Aldosterone antagonist: N/A- plan to retrial at 12.5 mg daily in the future SGLT2i: Start Farxiga 10 mg daily Other: N/A Refill needed on cardiac-related medications? 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 PLAN: Recheck BMP in ~2 weeks New baseline Scr appears to be 1.5-1.8 over the past 2 months We will continue current dosing of diuretic as patient's volume status and symptoms are improving. Renal function is overall stable compared with previous few months. FOLLOW UP: PharmD visit: 2 week(s) Cardiology MD or LESLEE visit: 2 month(s) Labs due in 2 week(s) Signature: Evelyn Steward PharmD, [facility] 30 minute [id number] follow-up appointment. Evelyn Steward RPH 05/26/24 1058 documented in this encounter [facility] 05-25-2024 Instructions Evelyn Steward RPH - 05/25/2024 3:00 PM EST Follow up after today's visit: Call Evelyn if HR is in the 40s at home Start Farxiga 10 mg daily Repeat BMP in 2 weeks Limit salt intake to 2 grams/day and fluid intake to 2 L/day Obtain and record daily weights and call the clinic (Phone #: [phone]) if you gain more than 5 lbs in one week. Check your blood pressure once daily and bring your blood pressure diary to your next clinic visit Avoid cardiotoxic medications such as NSAIDS (Advil, Aleve, Motrin etc) Do not miss any doses of medications. documented in this encounter [facility] 05-17-2024 History of Present illness Narrative 15 minute [id number] follow-up anticoagulation appointment. INR performed in office per protocol. INR 2.2 (goal range: 2.0-3.0). Patient reports: Taking warfarin dosing as documented. Missed or extra doses of warfarin: No Changes to medications: No Changes to lifestyle (diet / alcohol / smoking / activity): No Recent emergency department visit / hospitalization / health changes / new contraindication to current anticoagulant: No Signs/symptoms of bruising/bleeding or clotting or any intolerable adverse events: No Upcoming procedures: No Anticoagulant prescription needed: No Seen referring provider in the last year Duration of therapy reviewed Assessment: INR is remaining stable in therapeutic range on current warfarin regimen. Plan: Patient instructed to continue warfarin 7.5 mg Tue/Sat and 5 mg AOD. Check INR in 3 week(s). Patient verbalizes understanding of anticoagulant dosing instructions and information discussed. Dosing regimen, counseling, and follow-up appointment were provided to the patient. Patient reminded to call with questions or any medication changes. Patient instructed to seek medical attention if any major bleeding/bleeding that persists or worsens. Evelyn Steward RPH 05/17/24 1131 documented in this encounter [facility] 05-17-2024 Miscellaneous Notes Pts calling office today regarding valsartan dose. There is conflicting information regarding dosage. At [facility] appt on 04/19/24, At last PharmD visit, valsartan was to be increased to 40 mg daily. However, due to renal function spironolactone was held, furosemide was reduced to 40 mg daily, and valsartan was maintained at 20 mg daily . At visit with RECORDS MANAGER on 05/06/24, He is volume overloaded upon examination today. Blood pressure and heart rate are well controlled. He is scheduled to see the Heart Failure Clinic on 05/10/24. He has been following with [facility] for optimization of his GDMT. His current GDMT regimen includes Metoprolol Succinate 50mg daily and Valsartan 40mg daily. He tells me that his Lasix was decreased to 40 mg daily approximately two weeks ago due to his worsening renal function, however was recently instructed to add an additional afternoon dose of 40mg on Mondays, Wednesdays, and Fridays. He is volume overloaded upon examination today. We will transition him to Bumex 1mg BID to see if this will better optimize his volume status. He states that he is getting labs drawn today prior to his appointment on Friday with the Heart Failure Clinic. He would like to have his magnesium level checked as he is hoping to stop this supplement. Will plan for follow up in 3 months or sooner if needed. At OV on 05/10/24 with JRR, it is documented at 40mg daily. Regarding valsartan, if it was decreased back to 20 mg by pharmacist, it was not updated on his medication list. He should continue whatever dose he is currently taking until his upcoming appt with pharmacy 05/25. I will add magnesium to his labs. PC to pt with JRR recommendations. She v/u. documented in this encounter [facility] 05-17-2024 Telephone encounter Note Pts calling office today regarding valsartan dose. There is conflicting information regarding dosage. At [facility] appt on 04/19/24, At last PharmD visit, valsartan was to be increased to 40 mg daily. However, due to renal function spironolactone was held, furosemide was reduced to 40 mg daily, and valsartan was maintained at 20 mg daily . At visit with RECORDS MANAGER on 05/06/24, He is volume overloaded upon examination today. Blood pressure and heart rate are well controlled. He is scheduled to see the Heart Failure Clinic on 05/10/24. He has been following with [facility] for optimization of his GDMT. His current GDMT regimen includes Metoprolol Succinate 50mg daily and Valsartan 40mg daily. He tells me that his Lasix was decreased to 40 mg daily approximately two weeks ago due to his worsening renal function, however was recently instructed to add an additional afternoon dose of 40mg on Mondays, Wednesdays, and Fridays. He is volume overloaded upon examination today. We will transition him to Bumex 1mg BID to see if this will better optimize his volume status. He states that he is getting labs drawn today prior to his appointment on Friday with the Heart Failure Clinic. He would like to have his magnesium level checked as he is hoping to stop this supplement. Will plan for follow up in 3 months or sooner if needed. At [facility] on 05/10/24 with JRR, it is documented at 40mg daily. [facility] [employer] 05-17-2024 Telephone encounter Note Regarding valsartan, if it was decreased back to 20 mg by pharmacist, it was not updated on his medication list. He should continue whatever dose he is currently taking until his upcoming appt with pharmacy 05/25. I will add magnesium to his labs. [facility] [employer] 05-17-2024 Telephone encounter Note PC to pt with JRR recommendations. She v/u. [facility] [employer] 05-10-2024 History of Present illness Narrative Images from the original note were not included. [facility] Sheeba Adames is a 79 y.o. male seen in the Heart Failure Clinic today for follow up. He has history of chronic heart failure with reduced ejection fraction for likely nonischemic cardiomyopathy. 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 He also has history of paroxysmal atrial fibrillation, CVA, hypertension, hyperlipidemia, diabetes, obesity and bladder cancer. He had a hospitalization in December with acute kidney injury noted to have urosepsis, acute heart failure and hypotension. An echocardiogram was completed during that hospitalization that showed a newly reduced EF at 35-40% as well as an elevated BNP at 518. He was then seen in the Cardiology office in follow-up with the initiation of Toprol and referral to Heart failure Clinic for optimization of medical therapy. At that time, he was noted to be on midodrine for hypotension. Midodrine was decreased to 2.5 mg as needed. He underwent a Lexiscan stress test to rule out ischemic cause of low EF which showed a fixed defect inferiorly and no reversible ischemia. LVEF was 46% on SPECT. Most recent labs were completed 02/02/2024 and showed normalization of renal function with a creatinine of 1.11, BUN 19, potassium 4 and sodium 142 with a GFR of 68. He was seen as a new patient in early February with referral to the clinical pharmacist for up titration of medical therapy. Due to an elevated creatinine, his optimization of medical therapy had been limited. He also had a decrease in his furosemide dose. He was then seen at the Cardiology office last and was noted to be significantly volume overloaded. Reviewing his weights, he was up 17 lb. His diuretic was changed to Bumex 1 mg twice a day. He reports today he has lost 4 lb since the initiation of Bumex. He had lab work completed on that day that showed improvement in creatinine down to 1.38. On exam, he has weeping edema which he states has improved over the weekend. He denies shortness of breath going room to room in his home and continues to chronically sleeps in the recliner. He denies abdominal bloating or early satiety. He does not use added salt but has not read nutrition labels for sodium value. He is not drinking more than 64 oz of fluid per day. HEART FAILURE SYNOPSIS Type of Heart Failure: combined systolic & diastolic Last EF: 35-40% QRS Interval: 86 ms NYHA Class: III AHA Stage: C Cardiac Device: None Last Hospitalization: 01/13 with HF, LOUISA, UTI Estimated Dry Weight: TBD Current Weight: Weight: 111.2 kg (245 lb 3.2 oz) Guideline-Directed Medication Therapy Beta Jeferson: Toprol 50 mg daily ACE1 / ARB / ARN1: Valsartan 40 mg daily Aldosterone Antagonist: Not yet SG LT 2 inhibitor: Not yet Diuretic Therapy: Bumex 1 mg twice a day ASSESSMENT 1. Chronic combined systolic and diastolic heart failure 2. Likely nonischemic cardiomyopathy 3. 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. No current anginal complaints 4. Paroxysmal atrial fibrillation on warfarin 5. History of CVA 6. Primary hypertension 7. Hyperlipidemia 8. Diabetes mellitus type 2 9. History of bladder cancer PLAN He is volume overloaded on exam today and by report of symptoms with NYHA 3 symptoms. He will continue Bumex 1 mg twice a day. He will get labs 1 day before his next clinical pharmacist appointment on May 25. Would recommend adding spironolactone or SG LT 2 inhibitor as renal function allows. After those medications are implemented, would consider switching valsartan to Entresto if blood pressure allows. He will return to the clinic in 2 months. If he does not have significant improvement in his fluid volume status he or his should call. His goal weight on his home scale is between 227 and 230. Patient Instructions Get lab work in 2 weeks, the day before your next pharmacy appt Drink 64 oz of fluid or less No more than 2000 mg sodium per day New Orders Orders Placed This Encounter Procedures Basic Metabolic Panel Standing Status: Future Standing Expiration Date: 05/10/2025 Order Specific Question: Release to patient via [email or web address]? Answer: Immediate [1] Medications Changed @EDPTMEDCHANGE@ SUBJECTIVE REVIEW OF SYSTEMS Review of Systems Constitutional: Negative for activity change, appetite change and fatigue. HENT: Negative for congestion, nosebleeds and postnasal drip. Respiratory: Positive for cough (mucus), chest tightness (from cough) and shortness of breath (with exertion). Negative for wheezing. Cardiovascular: Positive for leg swelling. Negative for chest pain and palpitations. Gastrointestinal: Positive for abdominal distention. Negative for abdominal pain, nausea and vomiting. Genitourinary: Negative for frequency. Musculoskeletal: Negative for joint swelling. Neurological: Negative for dizziness, syncope, light-headedness and headaches. Hematological: Does not bruise/bleed easily. Psychiatric/Behavioral: Positive for sleep disturbance (hard to stay asleep). The patient is not nervous/anxious. CURRENT MEDICATIONS Current Outpatient Medications Medication Sig Dispense Refill acetaminophen (TYLENOL) 325 mg tablet Take 2 tablets (650 mg total) by mouth every 6 (six) hours as needed for fever, headaches or pain. 30 tablet 0 aspirin 81 mg Take 1 tablet (81 mg total) by mouth in the morning. 30 tablet 11 atorvastatin (LIPITOR) 80 mg tablet TAKE 1 TABLET BY MOUTH EVERY MORNING 90 tablet 3 bumetanide (BUMEX) 1 mg tablet Take 1 tablet (1 mg total) by mouth 2 (two) times a day. 180 tablet 3 ferrous sulfate (SLOW FE) 137 mg (45 mg iron) tablet extended release Take 90 mg by mouth in the morning and at bedtime. FIASP FLEXTOUCH U-100 INSULIN 100 unit/mL (3 mL) insulin pen SSI TID before [id number] 2u, 201-250 4u, 251-300 6u, 301-350 8u, 351-400 10u. SSI [id number] 2u, 251-300 4u, 301-350 6u, 351-400 8u guaiFENesin (MUCINEX) 600 mg tablet extended release 12hr Take 1 tablet (600 mg total) by mouth every 12 (twelve) hours. insulin lispro (HumaLOG) 100 unit/mL insulin pen Daytime hyperglycemia [id number] mg/dL, give 2 units. 201-250 mg/dL, give 4 units. 251-300 mg/dL, give 6 units. 301-350 mg/dL, give 8 units. 351-400 mg/dL, give 10 units. 15 mL 0 insulin lispro (HumaLOG) 100 unit/mL insulin pen Bedtime hyperglycemia dosing. 201-250 mg/dL, give 2 units. 251-300 mg/dL, give 4 units. 301-350 mg/dL, give 6 units. 351-400 mg/dL, give 8 units. 15 mL 0 magnesium oxide 500 mg tablet Take 1 tablet (500 mg total) by mouth in the morning and 1 tablet (500 mg total) before bedtime. metoprolol succinate XL (TOPROL XL) 50 mg 24 hr tablet Take 1 tablet (50 mg total) by mouth in the morning. 90 tablet 3 nitroglycerin (NITROSTAT) 0.[address] 1 tablet (0.4 mg total) under the tongue every 5 (five) minutes as needed for chest pain (for chest pain). 25 tablet 3 pantoprazole (PROTONIX) 40 mg EC tablet Take 1 tablet (40 mg total) by mouth in the morning and 1 tablet (40 mg total) before bedtime. PAROXETINE HCL ORAL 20 mg daily. sucralfate (CARAFATE) 1 gram tablet Take 1 tablet (1 g total) by mouth in the morning and 1 tablet (1 g total) at noon and 1 tablet (1 g total) in the evening and 1 tablet (1 g total) before bedtime. valsartan (DIOVAN) 40 mg tablet Take 1 tablet (40 mg total) by mouth in the morning. 30 tablet 11 warfarin (COUMADIN) 5 mg tablet TAKE ONE AND ONE HALF TO TWO TABLETS BY MOUTH DAILY DIRECTED 180 tablet 3 vibegron (GEMTESA) 75 mg tablet Take 75 mg by mouth in the morning. (Patient not taking: Reported on 05/10/2024) No current facility-administered medications for this visit. ALLERGIES Allergies Allergen Reactions Celecoxib Dizziness Niacin Rash Prasugrel Other (See Comments) and Rash OBJECTIVE VITAL SIGNS BP 132/80 Pulse 55 Ht 182.9 cm (6' 0.01 ) Wt 111.2 kg (245 lb 3.2 oz) SpO2 97% BMI 33.25 kg/m Last 3 Weight Readings 05/10/24 1414 Weight: 111.2 kg (245 lb 3.2 oz) Body mass index is 33.25 kg/m . No data recorded Pulse Ox: @FLOWSTAT(10:24)@ Supplemental O2: LAST 3 WEIGHTS PULLED FROM EPIC Last 3 Weight Readings 05/10/24 1414 Weight: 111.2 kg (245 lb 3.2 oz) Body mass index is 33.25 kg/m . PHYSICAL EXAM General appearance: Awake, alert, cooperative Head: Normocephalic, without obvious abnormality, atraumatic Eyes: Conjunctivae/corneas clear, EOM's intact Neck: JVD - 10 cm above sternal notch Lungs: clear to auscultation bilaterally and no rhonchi or crackles , ' symmetric Heart: regular rate and rhythm, S1, S2 normal, no murmur, click, rub or gallop Abdomen: Soft, non-tender, bowel sounds normal, no organomegaly Extremities: extremities normal, atraumatic, no cyanosis or edema Skin: Skin color, turgor normal, no rashes or lesions Neurologic: Grossly normal Past Medical History: Diagnosis Date Arthritis Atrial fibrillation ([facility]) Coronary artery disease 3 stents 2004 Diabetes mellitus type 2, controlled ([facility]) Hyperlipidemia Hypertension Presence of coronary angioplasty implant and graft Shortness of breath Skin cancer and bladder Stroke ([facility]) TIA (transient ischemic attack) Urinary frequency Visual impairment Past Surgical History: Procedure Laterality Date APPENDECTOMY BACK SURGERY BIOPSY BLADDER N/A 08/27/2023 Performed by Fabián Bishop MD at [facility] CARDIAC CATHETERIZATION CAROTID STENT 3 valves COLONOSCOPY DIAGNOSTIC / SCREENING N/A 01/02/2024 Performed by Anni Lau MD at [facility] CYSTOSCOPY N/A 08/27/2023 Performed by Fabián Bishop MD at [facility] CYSTOSCOPY N/A 08/19/2022 Performed by Fabián Bishop MD at [facility] CYSTOSCOPY N/A 11/12/2021 Performed by Fabián Bishop MD at [facility] CYSTOSCOPY N/A 05/14/2021 Performed by Fabián Bishop MD at [facility] CYSTOSCOPY N/A 05/03/2020 Performed by Fabián Bishop MD at [facility] CYSTOSCOPY N/A 12/13/2019 Performed by Fabián Bishop MD at [facility] CYSTOSCOPY N/A 03/25/2018 Performed by Fabián Bishop MD at [facility] CYSTOSCOPY N/A 08/04/2017 Performed by Fabián Bishop MD at [facility] CYSTOSCOPY DILATATION URETHRAL N/A 08/27/2023 Performed by Fabián Bishop MD at [facility] CYSTOSCOPY DILATATION URETHRAL N/A 03/03/2023 Performed by Fabián Bishop MD at [facility] CYSTOSCOPY DILATATION URETHRAL N/A 11/12/2021 Performed by Fabián Bishop MD at [facility] CYSTOSCOPY DILATATION URETHRAL N/A 05/14/2021 Performed by Fabián Bishop MD at [facility] CYSTOSCOPY DILATATION URETHRAL N/A 12/13/2019 Performed by Fabián Bishop MD at [facility] CYSTOSCOPY DILATATION URETHRAL Bilateral 09/23/2018 Performed by Fabián Bishop MD at [facility] CYSTOSCOPY DILATATION URETHRAL BULBAR N/A 08/19/2022 Performed by Fabián Bishop MD at [facility] CYSTOSCOPY RETROGRADE PYELOGRAM Bilateral 03/03/2023 Performed by Fabián Bishop MD at [facility] CYSTOSCOPY RETROGRADE PYELOGRAM Bilateral 11/15/2020 Performed by Fabián Bishop MD at [facility] CYSTOSCOPY RETROGRADE PYELOGRAM Bilateral 04/21/2019 Performed by Fabián Bishop MD at [facility] CYSTOSCOPY RETROGRADE PYELOGRAM Bilateral 01/13/2017 Performed by Fabián Bishop MD at [facility] CYSTOSCOPY W/ INTERNAL URETHROTOMY 08/14/2015 stent removal CYSTOSCOPY WITH DILATATION N/A 05/03/2020 Performed by Fabián Bishop MD at [facility] ESOPHAGOGASTRODUODENOSCOPY DIAGNOSTIC N/A 03/05/2024 Performed by Anni Lau MD at [facility] ESOPHAGOGASTRODUODENOSCOPY DIAGNOSTIC N/A 01/02/2024 Performed by Anni Lau MD at [facility] EXTERNAL EAR SURGERY left ear, cancer removal EYE SURGERY HERNIA REPAIR february 2010 and 2012 LASIK TONSILLECTOMY TOTAL KNEE ARTHROPLASTY TRANSURETHRAL RESECTION OF BLADDER TUMOR 07/05/2015 TRANSURETHRAL RESECTION OF PROSTATE Family History Problem Relation Age of Onset Heart failure Father No Known Problems Mother Social History Socioeconomic History Marital status: Spouse name: Not on file Number of children: Not on file Years of education: Not on file Highest education level: Not on file Occupational History Not on file Tobacco Use Smoking status: Former Smokeless tobacco: Never Vaping Use Vaping status: Never Used Substance and Sexual Activity Alcohol use: No Drug use: No Sexual activity: Defer Partners: Female Other Topics Concern Caffeine Use Yes Social History Narrative Not on file Social Drivers of Health Financial Resource Strain: Low Risk (01/29/2024) Received from [facility] Overall Financial Resource Strain (CARDIA) Difficulty of Paying Living Expenses: Not hard at all Food Insecurity: No Food Insecurity (05/06/2024) Hunger Screening Food Insecurity - Worry: Never True Food Insecurity - Inability: Never True Transportation Needs: No Transportation Needs (01/29/2024) Received from [facility] PRAPARE - Transportation Lack of Transportation (Medical): No Lack of Transportation (Non-Medical): No Physical Activity: Inactive (01/29/2024) Received from [facility] Exercise Vital Sign Days of Exercise per Week: 0 days Minutes of Exercise per Session: 0 min Stress: Stress Concern Present (01/29/2024) Received from [facility] [place] [facility] Occupational Health - Occupational Stress Questionnaire Feeling of Stress : To some extent Social Connections: Socially Isolated (01/29/2024) Received from [facility] Social Connection and Isolation Panel [NHANES] Frequency of Communication with Friends and Family: Once a week Frequency of Social Gatherings with Friends and Family: Never Attends [employer] Services: Never Active Member of Clubs or Organizations: No Attends Club or Organization Meetings: Never Marital Status: Interpersonal Safety: Not At Risk (12/26/2023) Humiliation, Afraid, Rape, and Kick questionnaire Fear of Current or Ex-Partner: No Emotionally Abused: No Physically Abused: No Sexually Abused: No Housing Instability: Unknown (01/29/2024) Received from [facility] Housing Stability Vital Sign Unable to Pay for Housing in the Last Year: No Number of Times Moved in the Last Year: Not on file Homeless in the Last Year: No LUCILA Packer APRN-CNP 03/01/24 1341 [place] 05/10/24 1502 Instructed patient on daily weights and low sodium diet. Advised of s/s requiring ER treatment or call to office. Heart disease binder provided: No. Verbalized understanding. documented in this encounter [facility] 05-10-2024 Instructions LAUREANO [place] - 05/10/2024 2:30 PM EST Get lab work in 2 weeks, the day before your next pharmacy appt Drink 64 oz of fluid or less No more than 2000 mg sodium per day documented in this encounter [facility] 05-06-2024 History of Present illness Narrative Sheeba Adames Date of visit: 05/06/2024 Date of : 1945 Age: 79 y.o. Patient Active Problem List Diagnosis Cerebrovascular disease Coronary artery disease involving [place] coronary artery of [place] heart without angina pectoris Hyperlipidemia Mineral metabolism disorder Elevated PSA Bladder cancer ([facility] Presence of coronary angioplasty implant and graft Severe obesity (BMI 35.0-39.9) with comorbidity ([facility]) Benign prostatic hyperplasia with urinary obstruction E. 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 ([facility]) Peripheral edema Type 2 diabetes mellitus without complication ([facility]) Venous insufficiency (chronic) (peripheral) Venous stasis ulcer of left lower leg with edema of left lower leg ([facility]) Lymphedema Supratherapeutic INR LOUISA (acute kidney injury) ([facility]) Hypokalemia Chronic combined systolic and diastolic congestive heart failure ([facility]) Hydronephrosis Hydroureter Hypomagnesemia E coli bacteremia Occult blood positive stool Urinary incontinence Allergies Allergen Reactions Celecoxib Dizziness Niacin Rash Prasugrel Other (See Comments) and Rash Current Outpatient Medications Medication Sig Dispense Refill acetaminophen (TYLENOL) 325 mg tablet Take 2 tablets (650 mg total) by mouth every 6 (six) hours as needed for fever, headaches or pain. 30 tablet 0 aspirin 81 mg Take 1 tablet (81 mg total) by mouth in the morning. 30 tablet 11 atorvastatin (LIPITOR) 80 mg tablet TAKE 1 TABLET BY MOUTH EVERY MORNING 90 tablet 3 ferrous sulfate (SLOW FE) 137 mg (45 mg iron) tablet extended release Take 90 mg by mouth in the morning and at bedtime. FIASP FLEXTOUCH U-100 INSULIN 100 unit/mL (3 mL) insulin pen SSI TID before [id number] 2u, 201-250 4u, 251-300 6u, 301-350 8u, 351-400 10u. SSI [id number] 2u, 251-300 4u, 301-350 6u, 351-400 8u guaiFENesin (MUCINEX) 600 mg tablet extended release 12hr Take 1 tablet (600 mg total) by mouth every 12 (twelve) hours. insulin lispro (HumaLOG) 100 unit/mL insulin pen Daytime hyperglycemia [id number] mg/dL, give 2 units. 201-250 mg/dL, give 4 units. 251-300 mg/dL, give 6 units. 301-350 mg/dL, give 8 units. 351-400 mg/dL, give 10 units. 15 mL 0 insulin lispro (HumaLOG) 100 unit/mL insulin pen Bedtime hyperglycemia dosing. 201-250 mg/dL, give 2 units. 251-300 mg/dL, give 4 units. 301-350 mg/dL, give 6 units. 351-400 mg/dL, give 8 units. 15 mL 0 magnesium oxide 500 mg tablet Take 1 tablet (500 mg total) by mouth in the morning and 1 tablet (500 mg total) before bedtime. metoprolol succinate XL (TOPROL XL) 50 mg 24 hr tablet Take 1 tablet (50 mg total) by mouth in the morning. 90 tablet 3 nitroglycerin (NITROSTAT) 0.[address] 1 tablet (0.4 mg total) under the tongue every 5 (five) minutes as needed for chest pain (for chest pain). 25 tablet 3 pantoprazole (PROTONIX) 40 mg EC tablet Take 1 tablet (40 mg total) by mouth in the morning and 1 tablet (40 mg total) before bedtime. PAROXETINE HCL ORAL 20 mg daily. sucralfate (CARAFATE) 1 gram tablet Take 1 tablet (1 g total) by mouth in the morning and 1 tablet (1 g total) at noon and 1 tablet (1 g total) in the evening and 1 tablet (1 g total) before bedtime. valsartan (DIOVAN) 40 mg tablet Take 1 tablet (40 mg total) by mouth in the morning. 30 tablet 11 warfarin (COUMADIN) 5 mg tablet TAKE ONE AND ONE HALF TO TWO TABLETS BY MOUTH DAILY DIRECTED 180 tablet 3 bumetanide (BUMEX) 1 mg tablet Take 1 tablet (1 mg total) by mouth 2 (two) times a day. 180 tablet 3 vibegron (GEMTESA) 75 mg tablet Take 75 mg by mouth in the morning. (Patient not taking: Reported on 05/06/2024) No current facility-administered medications for this visit. Chief Complaint Patient presents with Follow-up EST PT LS MS STRESS, LABS, HF CLINICN REFERRAL SCHED W/PT History of Present Illness Patient is a 79-year-old male who presents to the office for follow-up. He is accompanied by his . He has complaints of ongoing dyspnea. This occurs when even walking short distances are minimally exerting himself. He currently has to sleep in a recliner. He states that his weight up per his scale at home. He states that he is also currently on a fluid restriction and believes this is approximately 1800 mL daily. He denies any chest pain or discomfort, palpitations, lightheadedness, or dizziness. He states he is scheduled to see the Heart Failure Clinic on 05/10/24. Past Medical History: Diagnosis Date Arthritis Atrial fibrillation ([facility]) Coronary artery disease 3 stents 2004 Diabetes mellitus type 2, controlled ([facility]) Hyperlipidemia Hypertension Presence of coronary angioplasty implant and graft Shortness of breath Skin cancer and bladder Stroke ([facility]) TIA (transient ischemic attack) Urinary frequency Visual impairment No data recorded No data recorded No data recorded Past Surgical History: Procedure Laterality Date APPENDECTOMY BACK SURGERY BIOPSY BLADDER N/A 08/27/2023 Performed by Fabián Bishop MD at [facility] CARDIAC CATHETERIZATION CAROTID STENT 3 valves COLONOSCOPY DIAGNOSTIC / SCREENING N/A 01/02/2024 Performed by Anni Lau MD at [facility] CYSTOSCOPY N/A 08/27/2023 Performed by Fabián Bishop MD at [facility] CYSTOSCOPY N/A 08/19/2022 Performed by Fabián Bishop MD at [facility] CYSTOSCOPY N/A 11/12/2021 Performed by Fabián Bishop MD at [facility] CYSTOSCOPY N/A 05/14/2021 Performed by Fabián Bishop MD at [facility] CYSTOSCOPY N/A 05/03/2020 Performed by Fabián Bishop MD at [facility] CYSTOSCOPY N/A 12/13/2019 Performed by Fabián Bishop MD at [facility] CYSTOSCOPY N/A 03/25/2018 Performed by Fabián Bishop MD at [facility] CYSTOSCOPY N/A 08/04/2017 Performed by Fabián Bishop MD at [facility] CYSTOSCOPY DILATATION URETHRAL N/A 08/27/2023 Performed by Fabián Bishop MD at [facility] CYSTOSCOPY DILATATION URETHRAL N/A 03/03/2023 Performed by Fabián Bishop MD at [facility] CYSTOSCOPY DILATATION URETHRAL N/A 11/12/2021 Performed by Fabián Bishop MD at [facility] CYSTOSCOPY DILATATION URETHRAL N/A 05/14/2021 Performed by Fabián Bishop MD at [facility] CYSTOSCOPY DILATATION URETHRAL N/A 12/13/2019 Performed by Fabián Bishop MD at [facility] CYSTOSCOPY DILATATION URETHRAL Bilateral 09/23/2018 Performed by Fabián Bishop MD at [facility] CYSTOSCOPY DILATATION URETHRAL BULBAR N/A 08/19/2022 Performed by Fabián Bishop MD at [facility] CYSTOSCOPY RETROGRADE PYELOGRAM Bilateral 03/03/2023 Performed by Fabián Bishop MD at [facility] CYSTOSCOPY RETROGRADE PYELOGRAM Bilateral 11/15/2020 Performed by Fabián Bishop MD at [facility] CYSTOSCOPY RETROGRADE PYELOGRAM Bilateral 04/21/2019 Performed by Fabián Bishop MD at [facility] CYSTOSCOPY RETROGRADE PYELOGRAM Bilateral 01/13/2017 Performed by Fabián Bishop MD at [facility] CYSTOSCOPY W/ INTERNAL URETHROTOMY 08/14/2015 stent removal CYSTOSCOPY WITH DILATATION N/A 05/03/2020 Performed by Fabián Bishop MD at [facility] ESOPHAGOGASTRODUODENOSCOPY DIAGNOSTIC N/A 03/05/2024 Performed by Anni Lau MD at [facility] ESOPHAGOGASTRODUODENOSCOPY DIAGNOSTIC N/A 01/02/2024 Performed by Anni Lau MD at [facility] EXTERNAL EAR SURGERY left ear, cancer removal EYE SURGERY HERNIA REPAIR february 2010 and 2012 LASIK TONSILLECTOMY TOTAL KNEE ARTHROPLASTY TRANSURETHRAL RESECTION OF BLADDER TUMOR 07/05/2015 TRANSURETHRAL RESECTION OF PROSTATE Family History Problem Relation Age of Onset Heart failure Father No Known Problems Mother Social History Socioeconomic History Marital status: Spouse name: Not on file Number of children: Not on file Years of education: Not on file Highest education level: Not on file Occupational History Not on file Tobacco Use Smoking status: Former Smokeless tobacco: Never Vaping Use Vaping status: Never Used Substance and Sexual Activity Alcohol use: No Drug use: No Sexual activity: Defer Partners: Female Other Topics Concern Caffeine Use Yes Social History Narrative Not on file Social Drivers of Health Financial Resource Strain: Low Risk (01/29/2024) Received from [facility] Overall Financial Resource Strain (CARDIA) Difficulty of Paying Living Expenses: Not hard at all Food Insecurity: No Food Insecurity (05/06/2024) Hunger Screening Food Insecurity - Worry: Never True Food Insecurity - Inability: Never True Transportation Needs: No Transportation Needs (01/29/2024) Received from [facility] PRAPARE - Transportation Lack of Transportation (Medical): No Lack of Transportation (Non-Medical): No Physical Activity: Inactive (01/29/2024) Received from [facility] Exercise Vital Sign Days of Exercise per Week: 0 days Minutes of Exercise per Session: 0 min Stress: Stress Concern Present (01/29/2024) Received from [facility] [employer] [place] [employer] - Occupational Stress Questionnaire Feeling of Stress : To some extent Social Connections: Socially Isolated (01/29/2024) Received from [facility] Social Connection and Isolation Panel [NHANES] Frequency of Communication with Friends and Family: Once a week Frequency of Social Gatherings with Friends and Family: Never Attends Pent[employer] Services: Never Active Member of Clubs or Organizations: No Attends Club or Organization Meetings: Never Marital Status: Interpersonal Safety: Not At Risk (12/26/2023) Humiliation, Afraid, Rape, and Kick questionnaire Fear of Current or Ex-Partner: No Emotionally Abused: No Physically Abused: No Sexually Abused: No Housing Instability: Unknown (01/29/2024) Received from [facility] Housing Stability Vital Sign Unable to Pay for Housing in the Last Year: No Number of Times Moved in the Last Year: Not on file Homeless in the Last Year: No Review of Systems Review of Systems Constitutional: Positive for malaise/fatigue. HENT: Positive for hoarse voice. Eyes: Negative. Cardiovascular: Negative. Respiratory: Positive for cough, shortness of breath and wheezing. Endocrine: Negative. Hematologic/Lymphatic: Bruises/bleeds easily. Skin: Negative. Musculoskeletal: Positive for joint swelling. Gastrointestinal: Negative. Genitourinary: Negative. Neurological: Positive for loss of balance. Psychiatric/Behavioral: Negative. Allergic/Immunologic: Negative. Vascular: Negative. CARDIOVASCULAR: Please review HPI. Physical Examination General appearance: Alert, oriented and cooperative. In no acute distress. Skin: Warm to touch. Multiple wounds to bilateral lower extremities. Head: Normocephalic, without obvious abnormality, atraumatic. Ears, Nose, Mouth, Throat: Throat clear without erythema or exudate. Dentition intact. Eyes: Conjunctivae unremarkable, EOM intact. Neck: No JVD, No carotid bruit. Neck supple, trachea midline. Respiratory: Clear to auscultation bilaterally, no use of accessory muscles. Cardiovascular: Irregularly irregular with normal S1 and S2 with no murmurs. Gastrointestinal: Soft, non-tender. Bowel sounds normal. Musculoskeletal: + peripheral edema. Neurologic: Oriented to time, person and place, affect appropriate. No focal/major motor defects noted. Psychiatric: Appropriate mood, memory and judgement. VITAL SIGNS: BP 118/84 (BP Site: Left Arm, BP Postition: Sitting) Pulse 62 Ht 182.9 cm (6') Wt 114.1 kg (251 lb 9.6 oz) SpO2 91% BMI 34.12 kg/m Orders Placed or Reconciled This Encounter Medications bumetanide (BUMEX) 1 mg tablet Sig: Take 1 tablet (1 mg total) by mouth 2 (two) times a day. Dispense: 180 tablet Refill: 3 Medications Discontinued During This Encounter Medication Reason furosemide (LASIX) 40 mg tablet Alternate therapy IMPRESSIONS/PLAN 1. Coronary artery disease involving [place] coronary artery of [place] heart without angina pectoris 2. Chronic combined systolic and diastolic congestive heart failure ([facility] - Magnesium; Future - bumetanide (BUMEX) 1 mg tablet; Take 1 tablet (1 mg total) by mouth 2 (two) times a day. Dispense: 180 tablet; Refill: 3 3. Paroxysmal atrial fibrillation ([facility]) 4. Essential hypertension 5. Dyslipidemia 6. Mild mitral regurgitation Assessment CAD s/p MARILYN x3 to LAD and LCx in 09/2010. Known [employer] of RCA, 2005. 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 EF 35-40% per TTE 12/31/2023 Negative stress test, 02/10/2024: No evidence of reversible ischemia. Stress ECG was negative. Essential hypertension Dyslipidemia: LDL 46 as of 11/2021 Nonrheumatic mitral valve regurgitation, mild Nonrheumatic tricuspid valve regurgitation, trace to mild Type 2 diabetes mellitus Chronic kidney disease stage IIIB Hx of CVA in 2013 with subsequent TIA History of bladder cancer Plan He is volume overloaded upon examination today. Blood pressure and heart rate are well controlled. He is scheduled to see the Heart Failure Clinic on 05/10/24. He has been following with [facility] Therapy [facility] for optimization of his GDMT. His current GDMT regimen includes Metoprolol Succinate 50mg daily and Valsartan 40mg daily. He tells me that his Lasix was decreased to 40 mg daily approximately two weeks ago due to his worsening renal function, however was recently instructed to add an additional afternoon dose of 40mg on Mondays, Wednesdays, and Fridays. He is volume overloaded upon examination today. We will transition him to Bumex 1mg BID to see if this will better optimize his volume status. He states that he is getting labs drawn today prior to his appointment on Friday with the Heart Failure Clinic. He would like to have his magnesium level checked as he is hoping to stop this supplement. Will plan for follow up in 3 months or sooner if needed. Agree with LESLEE assessment and plan as outlined above. Patient was seen and evaluated independently. Patient has been dealing with CHF. He was acutely volume overloaded. He is currently taking Lasix 40 mg daily and some days he takes it twice daily. He was volume overloaded on exam. His weights are up. Significant gut edema. Recommend transitioning to Bumex 1 mg twice daily. He was going to see the heart failure Clinic on Friday and they can reassess his volume status at that time. He was going to get his blood work drawn after our clinic visit here today. Briefly discussed putting him back on spironolactone but they were hesitant as he was taken off this recently due to worsening kidney function. Would have a low threshold to getting him back on spironolactone. Eventual SGLT2 inhibitor. TODAYS ORDERS Orders Placed This Encounter Procedures Magnesium FOLLOW UP Return in about 3 months (around 08/06/2024). PCP: Shabana Costello MD Referring Physician: Shabana Costello MD [address] [place] [address] documented in this encounter [facility] 05-06-2024 History of Present illness Narrative 15 minute [id number] follow-up anticoagulation appointment. INR performed in office per protocol. INR 3.2 (goal range: 2.0-3.0). Patient reports: Taking warfarin dosing as documented. Missed or extra doses of warfarin: No Changes to medications: No Changes to lifestyle (diet / alcohol / smoking / activity): No Recent emergency department visit / hospitalization / health changes / new contraindication to current anticoagulant: YES Patient reports 15 pounds of weight gain recently. Patient is seeing cardio after visit here Signs/symptoms of bruising/bleeding or clotting or any intolerable adverse events: No Upcoming procedures: No Anticoagulant prescription needed: No Seen referring provider in the last year Duration of therapy reviewed Assessment: INR is elevated. Last 3 INRs have been 3.9, 2.9, and 3.2, therefore weekly dose reduced 5% Plan: Patient instructed to decrease to warfarin 7.5 mg Tue/Sat and 5 mg AOD. Check INR in 2 week(s). Patient verbalizes understanding of anticoagulant dosing instructions and information discussed. Dosing regimen, counseling, and follow-up appointment were provided to the patient. Patient reminded to call with questions or any medication changes. Patient instructed to seek medical attention if any major bleeding/bleeding that persists or worsens. Evelyn Steward RPH 05/06/24 1128 documented in this encounter [facility] 05-05-2024 Miscellaneous Notes Left message for patient to remind them to bring their most current medication list with them to their appointment. documented in this encounter [facility] 05-05-2024 Telephone encounter Note Left message for patient to remind them to bring their most current medication list with them to their appointment. [facility] 04-28-2024 History of Present illness Narrative Eliana from [facility] called (P: [phone]). Today, INR is 2.9. Current Warfarin dose: Patient held his dose on 04/21, then was instructed to take 5 mg Friday, Friday, Friday and 7.5 mg all other days. Eliana reports no med/diet/health changes, no missed or extra doses, no bleeding or bruising, no upcoming procedures. Next nursing visit: 05/05, 05/12. Please call , Mar, with dosing at [phone]. Fax order to [facility] at [phone]. Result received from [facility]. INR 2.9 (goal range: 2.0-3.0). Spoke to spouse who reports patient findings: Taking warfarin dosing as documented. Missed or extra doses of warfarin: No Changes to medications: No Changes to lifestyle (diet / alcohol / smoking / activity): No Recent emergency department visit / hospitalization / health changes / new contraindication to current anticoagulant: No Signs/symptoms of bruising/bleeding or clotting: No Upcoming procedures: No Anticoagulant prescription needed: No Seen referring provider in the last year Duration of therapy reviewed Assessment: INR back into therapeutic range but still at higher end of range following held dose and dose reduction Plan: Patient instructed to decrease to warfarin 7.5 mg Friday, , Friday, 5 mg all other days. Will slightly reduce regimen further since he is still at higher end of range. Check INR in 1 week(s). Will draw at POC on before PPC visit. Patient and/or caregiver verbalizes understanding of anticoagulant dosing instructions and information discussed. Dosing regimen, counseling, and follow-up INR redraw date were provided. Patient reminded to call with questions or any medication changes. Patient instructed to seek medical attention if any major bleeding/bleeding that persists or worsens. Henrique Puga RPH 04/28/24 1153 documented in this encounter [facility] 04-28-2024 Miscellaneous Notes Eliana Mata called to confirm what day patient is due for next INR. Paper Latcher advised that INR is due today. Re-faxed orders per Eliana's request. documented in this encounter [facility] 04-28-2024 Telephone encounter Note Eliana Mata called to confirm what day patient is due for next INR. Paper Latcher advised that INR is due today. Re-faxed orders per Eliana's request. [facility] [employer] [facility] 04-21-2024 History of Present illness Narrative Eliana from [facility] called (P: [phone]). Today, INR is 3.9. Current Warfarin dose: Eliana was unsure of dosing, as patient's was not at home, and she takes care of dosing. Eliana reports no med/diet/health changes, no missed or extra doses, no bleeding or bruising, no upcoming procedures. Next nursing visit: 04/28/24. Please call patient's , Grace, with result and dosing at [phone]. Fax order to [facility]. Eliana from [facility] called ([phone]). It turns out that she was not supposed to draw patient's INR today. If med dosage is going to be adjusted based on this INR, please fax order to [facility] to show that it was ok to draw INR today. Result received from [facility]. INR 3.9 (goal range: 2.0-3.0). Spoke to patient's who reports patient findings: Taking warfarin dosing as documented. Missed or extra doses of warfarin: No Changes to medications: No Changes to lifestyle (diet / alcohol / smoking / activity): No- no changes in appetite or lifestyle at this time. No cranberry juice, grapefruit or alcohol intake Recent emergency department visit / hospitalization / health changes / new contraindication to current anticoagulant: No Signs/symptoms of bruising/bleeding or clotting: No Upcoming procedures: No Anticoagulant prescription needed: No Seen referring provider in the last year Duration of therapy reviewed Assessment: INR is elevated at 3.9 today for unknown reason. It appears that INR fell in therapeutic range with held dose a few weeks ago. Will hold x 1 and reduce dosing today. Patient may need more aggressive dose reduction next week if INR within range. Plan: Patient instructed to hold warfarin today then reduce to 5 mg on Fri, Fri and Fri; 7.5 mg on all other days. Check INR in 1 week(s). Order faxed Patient and/or caregiver verbalizes understanding of anticoagulant dosing instructions and information discussed. Dosing regimen, counseling, and follow-up INR redraw date were provided. Patient reminded to call with questions or any medication changes. Patient instructed to seek medical attention if any major bleeding/bleeding that persists or worsens. [phone] Lucy Ford RPH 04/21/24 1153 documented in this encounter [facility] 04-19-2024 History of Present illness Narrative [facility] [address] [facility] [id number] SUBJECTIVE: Referring Provider: Delbert Hassan NP [facility] Referring Provider: Yes Consult Agreement: Yes Established with Heart Failure Clinic: Yes PCP: Shabana Costello MD Sheeba Adames is a 79 y.o. (White or [1]) male who presents for a follow up MTM visit for medication optimization and management of heart failure. At last PharmD visit, valsartan was to be increased to 40 mg daily. However, due to renal function spironolactone was held, furosemide was reduced to 40 mg daily, and valsartan was maintained at 20 mg daily. Patient reports his weight increased ~3 pounds since stopping furosemide and is stable with where it was at the beginning of March (234 in office, 230-231 home scale). He endorses if he consumes too much fluid he will carry this in his belly. Currently no additional fluid in abdomen and potentially a small amount of edema in his legs. BP is running ~120/80 at home and HR typically in the 60s. Of note HR was 46-49 at times in office today. Requested patient monitor closely at home and notify [facility] if HR continues to be in the 40s at home. HR laura to 52 in office prior to departure. Sheeba Adames is accompanied by his . Patient's last EF was 35-40 % on 12/31/2023 NYHA Class 3 , Stage C DIET Sodium intake: Not adding salt, working to limit pre-packaged foods Potassium intake: Currently eating potassium rich foods d/t low K+ Fluid intake: 64oz day; patient aware of limit. Discussed to include drinks, soups, jello, popsickles, etc. Current Heart Failure Regimen: Medication Class Target Doses for HFrEF Patient Regimen Beta-jeferson Carvedilol 25-50 mg twice daily Metoprolol succinate 200 mg daily Bisoprolol 10 mg daily Metoprolol 50 mg daily At target dose: no BE Inhibitor Lisinopril 20-40 mg daily Captopril 50 mg three times daily Enalapril 10-20 mg twice daily Ramipril 10 mg daily Valsartan 20 mg daily At target dose: no ARB Losartan 150 mg daily Candesartan 32 mg daily Valsartan 160 mg twice daily ARNI Sacubitril/valsartan 97/103 mg twice daily Aldosterone Antagonist Spironolactone 25-50 mg daily Eplerenone 50 mg daily Spironolactone 25 mg daily- on hold At target dose: no SGLT2 Inhibitor Dapagliflozin 10 mg daily Empagliflozin 10 mg daily N/A At target dose: no Hydralazine/Nitrate Hydralazine 75 mg three times daily Isosorbide dinitrate 40 mg three times daily N/A At target dose: not applicable Diuretic Furosemide Bumetanide Torsemide Furosemide 40 mg QAM Other MEDICATION ADHERENCE/COST Patient reports being adherent to medications Patient states medications are affordable. BLOOD PRESSURES & WEIGHTS Patient does check his blood pressure at home Date Blood Pressure Heart Rate Weight 04/19 134/73 Forgot log at home Reports running 120/70-80 at home HR 60-61 consistently OBJECTIVE: VITALS: BP 129/70 Pulse 50 Wt 106.1 kg (234 lb) BMI 31.74 kg/m Caffeine intake within 60 minutes: No Smoking status: non-smoker (quit 40 years ago) Tobacco cessation interest if current smoker: No Weight: Wt Readings from Last 3 Encounters: 04/19/24 106.1 kg (234 lb) 04/05/24 105.1 kg (231 lb 12.8 oz) 03/23/24 106.1 kg (234 lb) Lab Results Component Value Date SODIUM 143 04/13/2024 K 3.5 04/13/2024 BUN 31 (H) 04/13/2024 CREATININE 1.77 (H) 04/13/2024 EGFR 39 (L) 04/13/2024 Lab Results Component Value Date CHOL 120 (L) 05/25/2021 EXTCHOL 106 11/30/2021 HDL 38 (L) 05/25/2021 EXTCHOHDL 3 11/30/2021 LDLCALC 61 05/25/2021 EXTLDL 46 11/30/2021 TRIG 107 05/25/2021 EXTRIG 136 11/30/2021 Lab Results Component Value Date IRON 18 (L) 12/24/2023 TIBC 140 (L) 12/24/2023 FERRITIN 522 (H) 12/24/2023 IMMUNIZATIONS: Influenza Complete: Yes Pneumonia Complete: Yes; patient is going to confirm Shingles Complete: No Immunization History Administered Date(s) Administered COVID-19, mRNA, LNP-S, PF, 100mcg/0.5mL Dose 07/21/2020, 08/18/2020, 04/30/2021 Covid-19, Mrna, Lnp-s, Bivalent, Pf, 30mcg/0.3 ml 03/29/2022 Covid-19,mrna, Lnp-s, Pf, 50mcg/0.5ml 12+ 04/16/2023 Influenza, Trivalent, Adjuvanted 04/05/2024 ASSESSMENT/PLAN: Heart Failure with Reduced Ejection Fraction: ASSESSMENT: Patient is not on maximally tolerated doses of guideline directed medical therapy. Still titrating Plan to increase valsartan to 40 mg daily as long as Scr is stable Continue off spironolactone and with reduced dose of furosemide EDUCATION: Discussed heart failure pathophysiology and management Reviewed DASH diet and BP goal Reviewed importance of low salt and fluid restricted diet Reviewed medication dosing, frequency, and possible side effects Immunizations: recommended Shingles Smoking cessation: n/a, patient is a former smoker MEDICATION PLAN: Diuretic: Continue Furosemide 40 mg daily + PRN weight gain ACEi/ARB/ARNI: Increase Valsartan to 40 mg daily Beta-jeferson: Continue metoprolol succinate 50 mg daily Aldosterone antagonist: Remain off spironolactone 25 mg daily SGLT2i: N/A- Active UTI Other: Midodrine- patient has not needed Refill needed on cardiac-related medications? 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 PLAN: Recheck BMP today with Scr increase s/p spironolactone FOLLOW UP: PharmD visit: 4 week(s) Cardiology MD or LESLEE visit: 2 week(s) Labs due in ISAIAS day(s) Signature: Evelyn Steward PharmD, [facility] 30 minute [id number]-[id number] follow-up appointment. Evelyn Steward RPH 04/19/24 1600 Sounds good, thanks for update LAUREANO Woods 04/19/24 1620 documented in this encounter [facility] [employer] [facility] 04-19-2024 Instructions Evelyn Steward RPH - 04/19/2024 3:00 PM EDT Follow up after today's visit: Complete BMP today- Evelyn will call with results Call if HR is in the 40s at home Call with weight gain-- continue furosemide 40 mg daily at this time pending BMP results Remain off spironolactone Limit salt intake to 2 grams/day and fluid intake to 2 L/day Obtain and record daily weights and call the clinic (Phone #: [phone]) if you gain more than 5 lbs in one week. Check your blood pressure once daily and bring your blood pressure diary to your next clinic visit Avoid cardiotoxic medications such as NSAIDS (Advil, Aleve, Motrin etc) Do not miss any doses of medications. documented in this encounter [email or web address] 04-16-2024 History of Present illness Narrative 15 minute nvkj-xw-[id number] follow-up anticoagulation appointment. INR performed in office per protocol. INR 2.4 (goal range: 2.0-3.0). Patient reports: Taking warfarin dosing as documented. Missed or extra doses of warfarin: No Changes to medications: No Changes to lifestyle (diet / alcohol / smoking / activity): No Recent emergency department visit / hospitalization / health changes / new contraindication to current anticoagulant: No Signs/symptoms of bruising/bleeding or clotting or any intolerable adverse events: No Upcoming procedures: No Anticoagulant prescription needed: No Seen referring provider in the last year Duration of therapy reviewed Assessment: INR is remaining stable in therapeutic range on current warfarin regimen. Plan: Patient instructed to continue warfarin 5 mg Fri/Fri and 7.5 mg AOD. Check INR in 2.5 week(s). Patient verbalizes understanding of anticoagulant dosing instructions and information discussed. Dosing regimen, counseling, and follow-up appointment were provided to the patient. Patient reminded to call with questions or any medication changes. Patient instructed to seek medical attention if any major bleeding/bleeding that persists or worsens. Evelyn Steward RPH 04/16/24 0950 documented in this encounter [facility] 04-15-2024 Telephone encounter Note Mady sawant [facility] called and needs a diag list for Sheeba, she would like a call back. [phone]. Ty [facility] 04-15-2024 Miscellaneous Notes Mady sawant [facility] called and needs a diag list for Sheeba, she would like a call back. [phone]. Ty documented in this encounter [facility] 04-13-2024 History of Present illness Narrative Images from the original note were not included. Sheeba Adames is a 79 y.o. male presents with chief complaint of Follow-up HPI: HPI Patient is present for a follow up for anemia. SUBJECTIVE: MEDICATIONS: Current Outpatient Medications Medication Instructions Accu-Chek Softclix Lancets lancets use 1 LANCET to TEST BLOOD SUGAR once daily acetaminophen (TYLENOL) 650 mg, Oral, Every 4 hours PRN albuterol HFA 90 mcg/act inhaler 2 puffs, Inhalation, Every 4 hours PRN aspirin 81 MG EC tablet 1 tablet DAILY (route: oral) atorvastatin (Lipitor) 80 MG tablet Every 24 hours Elastic Bandages & Supports (Tubular Stretch Bandage) mis Size E. Wash and dry legs daily, apply moisturizer. Apply to tubular bandage to bilateral lower legs daily, may remove at bedtime. ferrous sulfate 325 mg, Oral, 3 times daily with meals, Do not crush, chew, or split. furosemide (LASIX) 40 mg, Oral, Daily Gemtesa 75 mg, Oral, Daily RT glucose blood (Accu-Chek Irina Plus) test strip 1 each, Other, 4 times daily before meals and nightly insulin aspart, with niacinamide, (Fiasp FlexTouch) 100 UNIT/ML injection SSI TID before [id number] 2u, 201-250 4u, 251-300 6u, 301-350 8u, 351-400 10u. SSI [id number]-201-250 2u, 251-300 4u, 301-350 6u, 351-400 8u insulin pen needle 31G X 8 mm misc Use 4 x daily. magnesium oxide (MAG-OX) 400 mg, Oral, 2 times daily metoprolol succinate XL (TOPROL-XL) 50 mg, Oral, Daily, Do not crush or chew. Per cardio nitroglycerin (Nitrostat) 0.4 MG SL tablet Sublingual pantoprazole (PROTONIX) 40 mg, Oral, 2 times daily, Do not crush, chew, or split. PARoxetine (PAXIL) 20 mg, Oral, Every morning spironolactone (ALDACTONE) 25 mg, Daily RT sucralfate (CARAFATE) 1 g, Oral, 4 times daily before meals and nightly valsartan (DIOVAN) 40 mg, Daily RT warfarin (Coumadin) 5 MG tablet Every 24 hours, Managed per coumadin clinic.
I have reviewed and reconciled the history and medication list with the patient today. REVIEW OF SYMPTOMS: Review of Systems Constitutional: Negative for fatigue. HENT: Negative. Respiratory: Negative. Negative for cough, shortness of breath and wheezing. Cardiovascular: Negative for chest pain and palpitations. Gastrointestinal: Negative. Genitourinary: Negative. Skin: Negative. Neurological: Negative. Psychiatric/Behavioral: Negative. OBJECTIVE: Visit Vitals Smoking Status Former Physical Exam Vitals and nursing note reviewed. Cardiovascular: Rate and Rhythm: Normal rate and regular rhythm. Pulses: Normal pulses. Heart sounds: Normal heart sounds. Pulmonary: Effort: Pulmonary effort is normal. Breath sounds: Normal breath sounds. Abdominal: General: Abdomen is flat. Bowel sounds are normal. Palpations: Abdomen is soft. Musculoskeletal: General: Normal range of motion. Cervical back: Normal range of motion and neck supple. Skin: General: Skin is warm and dry. Neurological: General: No focal deficit present. Mental Status: He is oriented to person, place, and time. ASSESSMENT AND PLAN: Assessment/Plan Diagnoses and all orders for this visit: Anemia, unspecified type - CBC and differential; Future Order sent to [facility] lab. Type 2 diabetes mellitus with diabetic neuropathy, with long-term current use of insulin ([facility])-stable Paroxysmal atrial fibrillation ([facility])-stable Chronic kidney disease, stage 3b (HCC) ([facility])stable documented in this encounter [facility] 04-09-2024 History of Present illness Narrative 15 minute [id number] follow-up anticoagulation appointment. INR performed in office per protocol. INR 3.8 (goal range: 2.0-3.0). Patient reports: Taking warfarin dosing as documented. Missed or extra doses of warfarin: No Changes to medications: No Changes to lifestyle (diet / alcohol / smoking / activity): No Recent emergency department visit / hospitalization / health changes / new contraindication to current anticoagulant: No Signs/symptoms of bruising/bleeding or clotting or any intolerable adverse events: No Upcoming procedures: No Anticoagulant prescription needed: No Seen referring provider in the last year Duration of therapy reviewed Assessment: INR is elevated. We will hold x1, then reduce weekly dose 5%. Patient favors transition back to in office INRs moving forward. Plan: Patient instructed to hold warfarin 04/09, decrease weekly dose to 5 mg Fri/Fri and 7.5 mg AOD. Check INR in 1 week(s). Patient verbalizes understanding of anticoagulant dosing instructions and information discussed. Dosing regimen, counseling, and follow-up appointment were provided to the patient. Patient reminded to call with questions or any medication changes. Patient instructed to seek medical attention if any major bleeding/bleeding that persists or worsens. Evelyn Steward [facility] 04/09/24 1142 documented in this encounter [facility] 04-07-2024 Miscellaneous Notes Patient's called. She states [facility] couldn't get enough blood today, so an INR appointment is scheduled 04/09/24 at [facility]. was instructed to have patient continue taking 5 mg Friday, 7.5 mg all other days, per pharmacist's request (Marla). Noted. Dominique MTM to follow up further on 04/09/24. documented in this encounter [facility] 04-07-2024 Telephone encounter Note Patient's called. She states [facility] couldn't get enough blood today, so an INR appointment is scheduled 04/09/24 at [facility]. was instructed to have patient continue taking 5 mg Friday, 7.5 mg all other days, per pharmacist's request (Marla). [facility] 04-07-2024 Telephone encounter Note Noted. Dominique MTM to follow up further on 04/09/24. [facility] Work Phone: 04-05-2024 History of Present illness Narrative [facility] [address] [facility] [id number] SUBJECTIVE: Referring Provider: Delbert Hassan NP [facility] Referring Provider: Yes Consult Agreement: Yes Established with Heart Failure Clinic: Yes PCP: Shabana Costello MD Sheeba Adames is a 79 y.o. (White or [1]) male who presents for a follow up MTM visit for medication optimization and management of heart failure. At last PharmD visit, spironolactone 25 mg daily was initiated. Patient reports he has not needed midodrine since returning home. He has no dizziness, lightheaded, or edema at present time. Patient is tolerating spironolactone without concern and will repeat BMP to assess renal function today (Scr increased from 1.25 to 1.5 on initiation). Sheeba Adames is accompanied by his . Patient's last EF was 35-40 % on 12/31/2023 NYHA Class 3 , Stage C DIET Sodium intake: Not adding salt, working to limit pre-packaged foods Potassium intake: Currently eating potassium rich foods d/t low K+ Fluid intake: 64oz day; patient aware of limit. Discussed to include drinks, soups, jello, popsickles, etc. Current Heart Failure Regimen: Medication Class Target Doses for HFrEF Patient Regimen Beta-jeferson Carvedilol 25-50 mg twice daily Metoprolol succinate 200 mg daily Bisoprolol 10 mg daily Metoprolol 50 mg daily At target dose: no BE Inhibitor Lisinopril 20-40 mg daily Captopril 50 mg three times daily Enalapril 10-20 mg twice daily Ramipril 10 mg daily Valsartan 20 mg daily At target dose: no ARB Losartan 150 mg daily Candesartan 32 mg daily Valsartan 160 mg twice daily ARNI Sacubitril/valsartan 97/103 mg twice daily Aldosterone Antagonist Spironolactone 25-50 mg daily Eplerenone 50 mg daily Spironolactone 25 mg daily At target dose: no SGLT2 Inhibitor Dapagliflozin 10 mg daily Empagliflozin 10 mg daily N/A At target dose: no Hydralazine/Nitrate Hydralazine 75 mg three times daily Isosorbide dinitrate 40 mg three times daily N/A At target dose: not applicable Diuretic Furosemide Bumetanide Torsemide Furosemide 40 mg QAM and MWF in the afternoon Other Midodrine 2.5 mg PRN MEDICATION ADHERENCE/COST Patient reports being adherent to medications Patient states medications are affordable. BLOOD PRESSURES & WEIGHTS Patient does check his blood pressure at home Date Blood Pressure Heart Rate Weight Forgot log at home Reports running 120/70-80 at home HR 60-61 consistently OBJECTIVE: VITALS: BP 122/67 Pulse 62 Wt 105.1 kg (231 lb 12.8 oz) SpO2 96% BMI 31.44 kg/m Caffeine intake within 60 minutes: No Smoking status: non-smoker (quit 40 years ago) Tobacco cessation interest if current smoker: No Weight: Wt Readings from Last 3 Encounters: 04/05/24 105.1 kg (231 lb 12.8 oz) 03/23/24 106.1 kg (234 lb) 03/16/24 105.7 kg (233 lb) Lab Results Component Value Date SODIUM 142 04/01/2024 K 3.7 04/01/2024 BUN 30 (H) 04/01/2024 CREATININE 1.54 (H) 04/01/2024 EGFR 46 (L) 04/01/2024 Lab Results Component Value Date CHOL 120 (L) 05/25/2021 EXTCHOL 106 11/30/2021 HDL 38 (L) 05/25/2021 EXTCHOHDL 3 11/30/2021 LDLCALC 61 05/25/2021 EXTLDL 46 11/30/2021 TRIG 107 05/25/2021 EXTRIG 136 11/30/2021 Lab Results Component Value Date IRON 18 (L) 12/24/2023 TIBC 140 (L) 12/24/2023 FERRITIN 522 (H) 12/24/2023 IMMUNIZATIONS: Influenza Complete: Yes; Given today Pneumonia Complete: Yes; patient is going to confirm Shingles Complete: No Immunization History Administered Date(s) Administered COVID-19, mRNA, LNP-S, PF, 100mcg/0.5mL Dose 07/21/2020, 08/18/2020, 04/30/2021 Covid-19, Mrna, Lnp-s, Bivalent, Pf, 30mcg/0.3 ml 03/29/2022 Covid-19,mrna, Lnp-s, Pf, 50mcg/0.5ml 12+ 04/16/2023 ASSESSMENT/PLAN: Heart Failure with Reduced Ejection Fraction: ASSESSMENT: Patient is not on maximally tolerated doses of guideline directed medical therapy. Still titrating Plan to increase valsartan to 40 mg daily as long as Scr is stable If needed, will consider reduction in spironolactone to 12.5 mg and recheck BMP in 7 days if Scr has not trended back down EDUCATION: Discussed heart failure pathophysiology and management Reviewed DASH diet and BP goal Reviewed importance of low salt and fluid restricted diet Reviewed medication dosing, frequency, and possible side effects Immunizations: recommended Shingles Smoking cessation: n/a, patient is a former smoker MEDICATION PLAN: Diuretic: Continue Furosemide 40 mg daily + 40 mg MWF ACEi/ARB/ARNI: Increase Valsartan to 40 mg daily Beta-jeferson: Continue metoprolol succinate 50 mg daily Aldosterone antagonist: Continue spironolactone 25 mg daily SGLT2i: N/A- Active UTI Other: Midodrine- patient has not needed Refill needed on cardiac-related medications? 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 PLAN: Recheck BMP today with Scr increase s/p spironolactone FOLLOW UP: PharmD visit: 2 week(s) Cardiology MD or LESLEE visit: 1 month(s) Labs due in ISAIAS day(s) Signature: Evelyn Steward PharmD, [facility] 30 minute [id number] follow-up appointment. Evelyn Steward RPH 04/05/24 1630 EVELYN STEWARD RPH administered FLUAD 0.5 ML via intramuscular route in the left deltoid on April 05, 2024. The Lot Number is [id number], [facility] is [id number], [employer] is [employer], and Expiration Date is 10/08/24. VIS provided to patient on April 05, 2024. Patient provided consent to any costs associated with the influenza vaccine and administration. Evelyn Steward PharmD, [facility] April 05, 2024 4:21 PM Evelyn Steward [facility] 04/05/24 1630 documented in this encounter [facility] 04-05-2024 Instructions Evelyn Steward RPH - 04/05/2024 3:15 PM EDT Follow up after today's visit: Have kidneys checked today on the way out Plan to increase valsartan to 40 mg daily (1 tab), but wait for Evelyn to call with kidney results before increasing Limit salt intake to 2 grams/day and fluid intake to 2 L/day Obtain and record daily weights and call the clinic (Phone #: [phone]) if you gain more than 5 lbs in one week. Check your blood pressure once daily and bring your blood pressure diary to your next clinic visit Avoid cardiotoxic medications such as NSAIDS (Advil, Aleve, Motrin etc) Do not miss any doses of medications. documented in this encounter [facility] 04-01-2024 Miscellaneous Notes Patients Mar called to inform that the patient took two day's worth of his warfarin for a total of 15 mg. Mar can be reached at [phone] to discuss further. Returned Mar's call. She reports last night patient took 15 mg of warfarin. Will have patient hold dose today and then return to maintenance dose. She verbalized understanding of plan. documented in this encounter [facility] 04-01-2024 Telephone encounter Note Patients Mar called to inform that the patient took two day's worth of his warfarin for a total of 15 mg. Mar can be reached at [phone] to discuss further. [employer] 04-01-2024 Telephone encounter Note Returned Mar's call. She reports last night patient took 15 mg of warfarin. Will have patient hold dose today and then return to maintenance dose. She verbalized understanding of plan. [employer] Work Phone: 03-31-2024 History of Present illness Narrative Eliana from [facility] called ([phone]). INR today is 3.0. Eliana reports no med/diet/health changes, no missed or extra doses, no bleeding or bruising, no upcoming procedures. Current warfarin dose is 5mg on Mondays, 7.5mg AOD. Next home visit is scheduled for 04/07. Ok to call patient w/dosing. Please fax orders to [phone]. Result received from [facility]. INR 3.0 (goal range: 2.0-3.0). Spoke to patient's , Mar who reports patient findings: Taking warfarin dosing as documented. Missed or extra doses of warfarin: No Changes to medications: yes, patient completed abx Changes to lifestyle (diet / alcohol / smoking / activity): No Recent emergency department visit / hospitalization / health changes / new contraindication to current anticoagulant: No Signs/symptoms of bruising/bleeding or clotting: No Upcoming procedures: No Anticoagulant prescription needed: No Seen referring provider in the last year Duration of therapy reviewed Assessment: INR is remaining stable in therapeutic range on current warfarin regimen. Plan: Patient instructed to continue warfarin 5 mg on Mon; 7.5 mg on all other days. Recommended to have a salad or some vitamin K -2x/week if patient enjoys these foods to keep INR at the middle of goal range. Check INR in 1 week(s). Order faxed. Patient and/or caregiver verbalizes understanding of anticoagulant dosing instructions and information discussed. Dosing regimen, counseling, and follow-up INR redraw date were provided. Patient reminded to call with questions or any medication changes. Patient instructed to seek medical attention if any major bleeding/bleeding that persists or worsens. [phone] Lucy Ford RPH 03/31/24 1146 documented in this encounter [facility] [employer] [facility] 03-25-2024 History of Present illness Narrative Images from the original note were not included. Subjective Patient ID: Sheeba Adames is a 79 y.o. male who presents for Diabetic Nail care (Sheeba Adames is a 78 y.o. male who presents for DM Foot Care. PCP: Pravin 01/29/2024 A1C: 8.6 BS: 130). HPI HPI Onychomycosis/Toenail Fungus: Toenail deformity. Location: indicates all digits with thickened, deformed and discolored toenails. Duration: chronic toenail deformity, multiple years duration. Severity of symptoms: mild; acknowledging diabetic neuropathy involving both feet. Onset: gradual, without injury or trauma. Status: problematic/symptomatic over the past several weeks or so. Context: hard to trim, hard to reach; self-care is difficult, ineffective and not practical; increasing risk exposure. Family members are unable to provide effective care. Characteristics: discolored, thickened, , pressure , ingrowing , elongated , crusty , /lifting; without bleeding or drainage. Relieved bypatient is well satisfied with palliative care measures. Previous Treatment: palliative care as noted. Risk factors: Type II diabetes/IDDM. Diabetic peripheral vasculopathy. Chronic venous insufficiency/stasis ulceration by history. CVA (2015). Medical comorbidities. Polypharmacy. Anti-coagulant therapy. Diabetic peripheral neuropathy. Diabetic vasculopathy/CVI. Mobility and flexibility restraints. Toenail deformity. Shoe and/or digital trauma and related complications. Aggravated by: shoe gear , pressure , walking; catching and snagging on clothing etc.. Medications Current Outpatient Medications: Accu-Chek Softclix Lancets lancets, use 1 LANCET to TEST BLOOD SUGAR once daily, Disp: 100 each, Rfl: 1 acetaminophen (Tylenol) 325 MG tablet, Take 650 mg by mouth every 4 (four) hours if needed for mild pain, Disp: , Rfl: albuterol HFA 90 mcg/act inhaler, Inhale 2 puffs every 4 (four) hours if needed for wheezing, Disp: 18 g, Rfl: 0 aspirin 81 MG EC tablet, 1 tablet DAILY (route: oral), Disp: , Rfl: atorvastatin (Lipitor) 80 MG tablet, 1 (one) time each day at the same time., Disp: , Rfl: Elastic Bandages & Supports (Tubular Stretch Bandage) [facility], Size E. Wash and dry legs daily, apply moisturizer. Apply to tubular bandage to bilateral lower legs daily, may remove at bedtime., Disp: 1 each, Rfl: 3 ferrous sulfate 325 (65 Fe) MG EC tablet, Take 325 mg by mouth in the morning and 325 mg at noon and 325 mg in the evening. Take with meals. Do not crush, chew, or split.., Disp: , Rfl: furosemide (Lasix) 40 MG tablet, Take 40 mg by mouth Daily, Disp: , Rfl: glucose blood (Accu-Chek Irina Plus) test strip, 1 each by Other route in the morning and 1 each at noon and 1 each in the evening and 1 each before bedtime. Take before meals., Disp: 150 each, Rfl: 3 guaiFENesin (Mucinex) 600 MG 12 hr tablet, Take 1 tablet (600 mg) by mouth in the morning and 1 tablet (600 mg) before bedtime., Disp: 60 tablet, Rfl: 0 insulin aspart, with niacinamide, (Fiasp FlexTouch) 100 UNIT/ML injection, SSI TID before [id number] 2u, 201-250 4u, 251-300 6u, 301-350 8u, 351-400 10u. SSI [id number]-[id number] 2u, 251-300 4u, 301-350 6u, 351-400 8u, Disp: 10 mL, Rfl: 1 insulin pen needle 31G X 8 mm [facility], Use 4 x daily., Disp: 100 each, Rfl: 11 magnesium oxide (Mag-Ox) 400 mg tablet, Take 400 mg by mouth in the morning and 400 mg before bedtime., Disp: , Rfl: metoprolol succinate XL (Toprol-XL) 50 MG 24 hr tablet, Take 50 mg by mouth Daily Do not crush or chew. Per cardio, Disp: , Rfl: midodrine (Proamatine) 2.5 MG tablet, Take 5 mg by mouth 3 (three) times a day as needed (systolic less than 110) Per cardio, Disp: , Rfl: nitroglycerin (Nitrostat) 0.4 MG SL tablet, Sublingual, Disp: , Rfl: pantoprazole (ProtoNix) 40 MG EC tablet, Take 40 mg by mouth in the morning and 40 mg before bedtime. Do not crush, chew, or split.., Disp: , Rfl: PARoxetine (Paxil) 20 MG tablet, Take 1 tablet (20 mg) by mouth in the morning., Disp: 90 tablet, Rfl: 1 sucralfate (Carafate) 1 g tablet, , Disp: , Rfl: warfarin (Coumadin) 5 MG tablet, 1 (one) time each day at the same time Managed per coumadin clinic., Disp: , Rfl: Allergies Celecoxib, Niacin, and Prasugrel Past Surgical History Past Surgical History: Procedure Laterality Date APPENDECTOMY CATARACT EXTRACTION Right CORONARY STENT PLACEMENT x3 CYSTOSCOPY CYSTOSCOPY 11/2019 HERNIA REPAIR JOINT REPLACEMENT KNEE ARTHROSCOPY W/ DEBRIDEMENT Bilateral LASIX RENOGRAM LUMBAR SPINE SURGERY L4-5 NASAL SEPTUM SURGERY SPINE SURGERY TOTAL KNEE ARTHROPLASTY Bilateral TRANSURETHRAL RESECTION OF PROSTATE Family History Family History Problem Relation Name Age of Onset Cancer Mother Savannah Kim Diabetes Mother Savannah Kim Hypertension Father Sheeba Kim Heart disease Father Sheeba Kim No Known Problems Sister 2 No Known Problems Daughter 1 No Known Problems Son 1 Objective General Examination: GENERAL EXAMINATION: Alert and oriented. pleasant disposition. Presents ambulatory with walker assist. Wearing new balance extra depth shoes with accommodative orthoses. Accompanied by his spouse, Grace. FOOT EXAM: Date of Last Foot Exam: 03/25/2024 Sensory testing performed: sensations diminished Sensory and motor testing performed: strength normal Pedal pulse taking performed: 1+ Vascular: DORSALIS PEDIS PULSE: 1/4, bilaterally. POSTERIOR TIBIAL PULSE: faintly palpable, bilaterally. TEMPERATURE GRADIENT: warm to cool. EDEMA: brawny edema bilateral lower extremities and ankles; moderate-severe stasis pigmentation and dermatosis. CAPILLARY FILLING TIME(sec): capillary fill intact bilateral digits less than 3 secs. Neurologic: SHARP SENSATION: tactile and light touch sensation is compromised over the digital areas. SEMMES-OLGA 5.07 MONOFILAMENT: Unable to localize multiple points plantarly. Dermatologic: SKIN FINDINGS: intact. Skin turgor is fair. HYPERTROPHIC LESION: no forefoot or digital keratotic pressure lesions are noted. NAIL PATHOLOGY: Bilateral great toes: DSO/pincer toenail deformity: Toenail dystrophy, elongation, thickening, discoloration, crumbly texture, the distal margins are cryptotic, keratotic, mildly tender, non-inflamed, without drainage. 2nd digit right foot: TDO deformity: Toenail dystrophy, thickening, clubbing, discoloration, subtotal detachment, periungual hyperkeratosis, without drainage. All remaining digits: Varying degrees of toenail dystrophy, thickening, elongation, discoloration, periungual hyperkeratosis, without drainage. MYCOSIS SCALE: total with debris, 2nd digit right foot. INTERDIGITAL MACERATION: clean, dry, non-inflamed. ULCER: Effective healing of wounds associated with chronic venous insufficiency. SKIN PATHOLOGY: texture, turgor, hair growth, within normal limits. Orthopedic: JOINT RANGE OF MOTION: maintains functional ankle, subtalar, midtarsal and MTP joint range of motion. DEFORMITIES: central digits are mildly contracted Radiology: Assessment/Plan 1. 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 2. Type II diabetes. 3. Diabetic peripheral vasculopathy (Q8). 4. 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 5. CVA (2015). 6. Chronic venous insufficiency bilateral; stasis ulceration by history. Plan: Notes: conservative and palliative care measures are preferred, understood and again indicated. Diabetic education and assessment relative to the high risk foot condition. Encourage compliance with elevation and gradient compression sock therapy. Hygiene and skin care measures discussed Procedure: Toenail debridement: Aseptic technique: Hand and power instrumentation: Onychodebridement in length and thickness, with curettage of any cryptotic margins, all periungual debris; providing effective pressure relief; reducing shoe and digital trauma; reducing potential risks associated with a high risk diabetic foot and lower extremity condition and related complications This note was created with the assistance of a speech recognition program. While intending to generate a timely document that accurately reflects the content of the visit, no guarantee can be provided that every grammatical or spelling mistake has been or will be identified or corrected. Thank you for your understanding. Sunil Hernandez DPM documented in this encounter [facility] 03-25-2024 Instructions Sunil Hernandez DPM - 03/25/2024 10:15 AM EDT As noted documented in this encounter [facility] 03-24-2024 History of Present illness Narrative Niki from [facility] (P: [phone]). Today, INR is 2.7. Result received from [facility]. INR 2.7 (goal range: 2.0-3.0). Spoke to patient's spouse, Brayan reports patient findings: Taking warfarin dosing as documented. Missed or extra doses of warfarin: No- confirmed doses as requested by [employer]st Changes to medications: yes, spironolactone 25 mg once daily and cefadroxil 500 mg BID x 7 days (started on 03/22/24) for UTI Changes to lifestyle (diet / alcohol / smoking / activity): No- appetite has been good. Recent emergency department visit / hospitalization / health changes / new contraindication to current anticoagulant: No Signs/symptoms of bruising/bleeding or clotting: No Upcoming procedures: No Anticoagulant prescription needed: No Seen referring provider in the last year Duration of therapy reviewed Assessment: INR is remaining stable in therapeutic range on current warfarin regimen. Plan: Patient instructed to continue warfarin 5 mg on Mon; 7.5 mg on all other days. Check INR in 1 week(s). Order faxed Patient and/or caregiver verbalizes understanding of anticoagulant dosing instructions and information discussed. Dosing regimen, counseling, and follow-up INR redraw date were provided. Patient reminded to call with questions or any medication changes. Patient instructed to seek medical attention if any major bleeding/bleeding that persists or worsens. Lucy Ford RPH 03/24/24 1408 documented in this encounter [facility] 03-23-2024 History of Present illness Narrative [facility] MEDICATION THERAPY MANAGEMENT [address] [facility] [id number] SUBJECTIVE: Referring Provider: Delbert Hassan NP [facility] Referring Provider: Yes Consult Agreement: Yes Established with Heart Failure Clinic: Yes PCP: Shabana Costello MD Sheeba Adames is a 79 y.o. (White or [1]) male who presents for an initial MTM visit for medication optimization and management of heart failure. Patient reports he has not needed midodrine since returning home. He has no dizziness, lightheaded, or edema at present time. Of note, patient has a current UTI and a history of recurrent UTI. This may provide limitation with initiating SGLT2i therapy. We will follow for infection resolution. Medication boxes provided. Patient scheduled for flu vaccine at next OV. Sheeba Adames is accompanied by his . Patient's last EF was 35-40 % on 12/31/2023 NYHA Class 3 , Stage C DIET Sodium intake: Not adding salt, working to limit pre-packaged foods Potassium intake: Currently eating potassium rich foods d/t low K+ Fluid intake: 64oz day; patient aware of limit. Discussed to include drinks, soups, jello, popsickles, etc. Current Heart Failure Regimen: Medication Class Target Doses for HFrEF Patient Regimen Beta-jeferson Carvedilol 25-50 mg twice daily Metoprolol succinate 200 mg daily Bisoprolol 10 mg daily Metoprolol 50 mg daily At target dose: no BE Inhibitor Lisinopril 20-40 mg daily Captopril 50 mg three times daily Enalapril 10-20 mg twice daily Ramipril 10 mg daily Valsartan 20 mg daily At target dose: no ARB Losartan 150 mg daily Candesartan 32 mg daily Valsartan 160 mg twice daily ARNI Sacubitril/valsartan 97/103 mg twice daily Aldosterone Antagonist Spironolactone 25-50 mg daily Eplerenone 50 mg daily N/A At target dose: no SGLT2 Inhibitor Dapagliflozin 10 mg daily Empagliflozin 10 mg daily N/A At target dose: no Hydralazine/Nitrate Hydralazine 75 mg three times daily Isosorbide dinitrate 40 mg three times daily N/A At target dose: not applicable Diuretic Furosemide Bumetanide Torsemide Furosemide 40 mg QAM and MWF in the afternoon Other Midodrine 2.5 mg PRN MEDICATION ADHERENCE/COST Patient reports being adherent to medications Patient states medications are affordable. BLOOD PRESSURES & WEIGHTS Patient does check his blood pressure at home Date Blood Pressure Heart Rate Weight 137/73 Checks daily, but does not record Logs provided to patient OBJECTIVE: VITALS: BP 123/64 Pulse 57 Wt 106.1 kg (234 lb) BMI 31.74 kg/m Caffeine intake within 60 minutes: No Smoking status: non-smoker (quit 40 years ago) Tobacco cessation interest if current smoker: No Weight: Wt Readings from Last 3 Encounters: 03/16/24 105.7 kg (233 lb) 03/05/24 105.7 kg (233 lb) 03/01/24 106.1 kg (234 lb) Lab Results Component Value Date SODIUM 144 03/16/2024 K 3.4 (L) 03/16/2024 BUN 25 03/16/2024 CREATININE 1.25 03/16/2024 EGFR 59 (L) 03/16/2024 Lab Results Component Value Date CHOL 120 (L) 05/25/2021 EXTCHOL 106 11/30/2021 HDL 38 (L) 05/25/2021 EXTCHOHDL 3 11/30/2021 LDLCALC 61 05/25/2021 EXTLDL 46 11/30/2021 TRIG 107 05/25/2021 EXTRIG 136 11/30/2021 Lab Results Component Value Date IRON 18 (L) 12/24/2023 TIBC 140 (L) 12/24/2023 FERRITIN 522 (H) 12/24/2023 IMMUNIZATIONS: Influenza Complete: Yes; Give at next OV Pneumonia Complete: Yes; patient is going to confirm Shingles Complete: No Immunization History Administered Date(s) Administered COVID-19, mRNA, LNP-S, PF, 100mcg/0.5mL Dose 07/21/2020, 08/18/2020, 04/30/2021 Covid-19, Mrna, Lnp-s, Bivalent, Pf, 30mcg/0.3 ml 03/29/2022 Covid-19,mrna, Lnp-s, Pf, 50mcg/0.5ml 12+ 04/16/2023 ASSESSMENT/PLAN: Heart Failure with Reduced Ejection Fraction: ASSESSMENT: Patient is not on maximally tolerated doses of guideline directed medical therapy. Still titrating EDUCATION: Discussed heart failure pathophysiology and management Reviewed DASH diet and BP goal Reviewed importance of low salt and fluid restricted diet Reviewed medication dosing, frequency, and possible side effects Immunizations: recommended Shingles Smoking cessation: n/a, patient is a former smoker MEDICATION PLAN: Diuretic: Continue Furosemide 40 mg daily + 40 mg MWF ACEi/ARB/ARNI: Continue Valsartan 20 mg daily Beta-jeferson: Continue metoprolol succinate 50 mg daily Aldosterone antagonist: Start spironolactone 25 mg daily SGLT2i: N/A- Active UTI Other: Midodrine- patient has not needed Refill needed on cardiac-related medications? 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 PLAN: Monitor 7 days after initiating spironolactone FOLLOW UP: PharmD visit: 2 week(s) Cardiology MD or LESLEE visit: 1 month(s) Labs due in 7 day(s) to be completed prior to next clinic visit Signature: Evelyn Steward PharmD, [facility] 60 minute [id number] initial appointment. Evelyn Steward RPH 03/24/24 1627 documented in this encounter [employer] 03-23-2024 Instructions Evelyn Steward RPH - 03/23/2024 1:30 PM EDT Follow up after today's visit: Start spironolactone 25 mg daily Check BMP 1 week after Call if needing midodrine (seeing top BP number in the 90s) Call if HR is in the 40s Limit salt intake to 2 grams/day and fluid intake to 2 L/day Obtain and record daily weights and call the clinic (Phone #: [phone]) if you gain more than 5 lbs in one week. Check your blood pressure once daily and bring your blood pressure diary to your next clinic visit Avoid cardiotoxic medications such as NSAIDS (Advil, Aleve, Motrin etc) Do not miss any doses of medications. documented in this encounter [facility] 03-22-2024 Miscellaneous Notes Tried calling pt but call wont go through. documented in this encounter [facility] 03-22-2024 Telephone encounter Note Tried calling pt but call wont go through. [facility] 03-19-2024 Miscellaneous Notes Rosio from [facility] asking to change next INR draw to 10/2 instead of 10/3. If ok, please fax new order. If any questions, please call Rosio at [phone]. Noted. No objection to INR recheck on 03/24/24 instead. Updated order faxed to [facility] documented in this encounter [facility] 03-19-2024 Telephone encounter Note Rsoio from [facility] asking to change next INR draw to 10/2 instead of 10/3. If ok, please fax new order. If any questions, please call Rosio at [phone]. [facility] 03-19-2024 Telephone encounter Note Noted. No objection to INR recheck on 03/24/24 instead. Updated order faxed to [facility]. [facility] Work Phone: 03-18-2024 History of Present illness Narrative El[facility] from [facility] called ([phone]). INR today is 1.8. Eliana reports no med/diet/health changes, no missed or extra doses, no bleeding or bruising, no upcoming procedures. Current warfarin dose is 5mg on Fri and , 7.5mg AOD. Next home visit is scheduled for 03/22. Ok to call patient w/dosing. Please fax orders to [phone]. Result received from [facility]. INR 1.8 today (goal range: 2.0-3.0). Spoke to patient's spouse, Mar, who reports patient findings: Taking warfarin dosing as documented. Missed or extra doses of warfarin: No Changes to medications: YES Patient started on samples of Gemtesa after urology visit on 03/16/24, no change in INR anticipated Changes to lifestyle (diet / alcohol / smoking / activity): No Recent emergency department visit / hospitalization / health changes / new contraindication to current anticoagulant: No Signs/symptoms of bruising/bleeding or clotting: No Upcoming procedures: No Anticoagulant prescription needed: No Seen referring provider in the last year Duration of therapy reviewed Assessment: INR trending up after dose increase last week, but remains subtherapeutic. Will boost x 1 today then instruct for increased TWD. Will boost as increase in maintenance plan does not occur until Friday. Plan: Patient instructed to increase to warfarin 10 mg on 03/18/24 x 1 then increase to 5 mg on Mon; 7.5 mg all other days. Check INR in 1 week(s). Order faxed to [facility]. Patient and/or caregiver verbalizes understanding of anticoagulant dosing instructions and information discussed. Dosing regimen, counseling, and follow-up INR redraw date were provided. Patient reminded to call with questions or any medication changes. Patient instructed to seek medical attention if any major bleeding/bleeding that persists or worsens. Dulce Sommer RPH 03/18/24 1315 documented in this encounter [facility] 03-16-2024 History of Present illness Narrative Images from the original note were not included. [address] [place] [address] [address] [facility] [id number] Patient: Sheeba Adames Date of : 1945 Encounter Date: 03/16/2024 History of Present Illness: Chief Complaint: Follow up The patient is a 79 y.o. male, an established patient, and is here for follow-up. He presents with his . Is a patient of Dr Bishop. I had seen him as a consult in December 2023 when he was admitted with positive blood and urine cultures with E coli. He had 2000 cc in his bladder with bilateral hydroureteronephrosis. At that time had renal insufficiency which has returned back to baseline. He subsequently has passed a void trial. He has a history of bladder cancer. He last had surgery with Dr. Bishop August 27, 2023. At that time per the operative note he had a urethral stricture which was dilated and some erythema at the bladder neck and underwent a TUR with cautery. Had postop clot retention which resolved. Final pathology was negative. Reports that since then he has had ongoing issues with urinary leakage with spontaneous urge incontinence. His PVR today is minimal. Previously had tried Myrbetriq which he reports gave him marginal benefit. Is currently wearing depends which he reports was not doing before. Additionally since that time was started on Lasix. Uses no caffeine. Unable to void in clinic today to assess if he has a uti Summary of old records: Urinalysis today: No results for input(s): EXTPOCURCO , EXTPOCURCH , EXTPOCAPP , EXTPOCURBS , EXTPOCURBIL , EXTPOCUKET , EXTPOCUSPG , EXTPOCUHGB , EXTPOCUPRO , EXTPOCUURO , EXTPOCULEU , EXTPOCUNIT , EXTPOCUWBC , EXTPOCUBLD , EXTPOCURBC , EXTPOCUCRY , EXTPOCUBAC , EXTPOCUTREP , EXTPOCUPH , EXTPOCULEE in the last 72 hours. Last BUN and creatinine: Lab Results Component Value Date BUN 19 02/02/2024 Lab Results Component Value Date CREATININE 1.11 02/02/2024 Last PSA: Lab Results Component Value Date PSA 6.28 (H) 04/09/2023 PSA 6.49 (H) 07/22/2022 PSA 6.29 (H) 01/07/2022 PSA 6.690 11/30/2021 PSA 7.58 (H) 06/19/2021 No results found for: PROSTATICSP Additional Lab/Culture results: None Imaging Reviewed during this Office Visit: None (Results were independently reviewed by physician and radiology report verified) Past Medical, Family, and Social History Update: The following portions of the patient's history were reviewed and updated as appropriate: allergies, current medications, past family history, past medical history, past social history, past surgical history and problem list. Past Medical History: Diagnosis Date Arthritis Atrial fibrillation ([facility] Coronary artery disease 3 stents 2004 Diabetes mellitus type 2, controlled ([facility]) Hyperlipidemia Hypertension Presence of coronary angioplasty implant and graft Shortness of breath Skin cancer and bladder Stroke ([facility]) TIA (transient ischemic attack) Urinary frequency Visual impairment Past Surgical History: Procedure Laterality Date APPENDECTOMY BACK SURGERY BIOPSY BLADDER N/A 08/27/2023 Performed by Fabián Bishop MD at [facility] CARDIAC CATHETERIZATION CAROTID STENT 3 valves COLONOSCOPY DIAGNOSTIC / SCREENING N/A 01/02/2024 Performed by Anni Lau MD at [facility] CYSTOSCOPY N/A 08/27/2023 Performed by Fabián Bishop MD at [facility] CYSTOSCOPY N/A 08/19/2022 Performed by Fabián Bishop MD at [facility] CYSTOSCOPY N/A 11/12/2021 Performed by Fabián Bishop MD at [facility] CYSTOSCOPY N/A 05/14/2021 Performed by Fabián Bishop MD at [facility] CYSTOSCOPY N/A 05/03/2020 Performed by Fabián Bishop MD at [facility] CYSTOSCOPY N/A 12/13/2019 Performed by Fabián Bishop MD at [facility] CYSTOSCOPY N/A 03/25/2018 Performed by Fabián Bishop MD at [facility] CYSTOSCOPY N/A 08/04/2017 Performed by Fabián Bishop MD at [facility] CYSTOSCOPY DILATATION URETHRAL N/A 08/27/2023 Performed by Fabián Bishop MD at [facility] CYSTOSCOPY DILATATION URETHRAL N/A 03/03/2023 Performed by Fabián iBshop MD at [facility] CYSTOSCOPY DILATATION URETHRAL N/A 11/12/2021 Performed by Fabián Bishop MD at [facility] CYSTOSCOPY DILATATION URETHRAL N/A 05/14/2021 Performed by Fabián Bishop MD at [facility] CYSTOSCOPY DILATATION URETHRAL N/A 12/13/2019 Performed by Fabián Bishop MD at [facility] CYSTOSCOPY DILATATION URETHRAL Bilateral 09/23/2018 Performed by Fabián Bishop MD at [facility] CYSTOSCOPY DILATATION URETHRAL BULBAR N/A 08/19/2022 Performed by Fabián Bishop MD at [facility] CYSTOSCOPY RETROGRADE PYELOGRAM Bilateral 03/03/2023 Performed by Fabián Bishop MD at [facility] CYSTOSCOPY RETROGRADE PYELOGRAM Bilateral 11/15/2020 Performed by Fabián Bishop MD at [facility] CYSTOSCOPY RETROGRADE PYELOGRAM Bilateral 04/21/2019 Performed by Fabián Bishop MD at [facility] CYSTOSCOPY RETROGRADE PYELOGRAM Bilateral 01/13/2017 Performed by Fabián Bishop MD at [facility] CYSTOSCOPY W/ INTERNAL URETHROTOMY 08/14/2015 stent removal CYSTOSCOPY WITH DILATATION N/A 05/03/2020 Performed by Fabián Bishop MD at [facility] ESOPHAGOGASTRODUODENOSCOPY DIAGNOSTIC N/A 03/05/2024 Performed by Anni Lau MD at [facility] ESOPHAGOGASTRODUODENOSCOPY DIAGNOSTIC N/A 01/02/2024 Performed by Anni Lau MD at [facility] EXTERNAL EAR SURGERY left ear, cancer removal EYE SURGERY HERNIA REPAIR february 2010 and 2012 LASIK TONSILLECTOMY TOTAL KNEE ARTHROPLASTY TRANSURETHRAL RESECTION OF BLADDER TUMOR 07/05/2015 TRANSURETHRAL RESECTION OF PROSTATE Family History Problem Relation Age of Onset Heart failure Father No Known Problems Mother Current Outpatient Medications Medication Sig Dispense Refill acetaminophen (TYLENOL) 325 mg tablet Take 2 tablets (650 mg total) by mouth every 6 (six) hours as needed for fever, headaches or pain. 30 tablet 0 aspirin 81 mg Take 1 tablet (81 mg total) by mouth in the morning. 30 tablet 11 atorvastatin (LIPITOR) 80 mg tablet Take 1 tablet (80 mg total) by mouth in the morning. 90 tablet 3 FIASP FLEXTOUCH U-100 INSULIN 100 unit/mL (3 mL) insulin pen SSI TID before [id number] 2u, 201-250 4u, 251-300 6u, 301-350 8u, 351-400 10u. SSI [id number] 2u, 251-300 4u, 301-350 6u, 351-400 8u furosemide (LASIX) 40 mg tablet Take 1 tab every morning and take 1 tab in the afternoon on Fri, Fri and Friday 45 tablet 11 insulin lispro (HumaLOG) 100 unit/mL insulin pen Daytime hyperglycemia [id number] mg/dL, give 2 units. 201-250 mg/dL, give 4 units. 251-300 mg/dL, give 6 units. 301-350 mg/dL, give 8 units. 351-400 mg/dL, give 10 units. 15 mL 0 insulin lispro (HumaLOG) 100 unit/mL insulin pen Bedtime hyperglycemia dosing. 201-250 mg/dL, give 2 units. 251-300 mg/dL, give 4 units. 301-350 mg/dL, give 6 units. 351-400 mg/dL, give 8 units. 15 mL 0 magnesium oxide 400 mg magnesium tablet Take 1 tablet by mouth in the morning and at bedtime. metoprolol succinate XL (TOPROL XL) 50 mg 24 hr tablet Take 1 tablet (50 mg total) by mouth in the morning. 90 tablet 3 midodrine (PROAMATINE) 2.5 mg tablet Take 1 tablet (2.5 mg total) by mouth Three (3) times daily after meals as needed (For SBP < 100). Hold for systolic > 100 270 tablet 1 nitroglycerin (NITROSTAT) 0.[address] 1 tablet (0.4 mg total) under the tongue every 5 (five) minutes as needed for chest pain (for chest pain). 25 tablet 3 NON FORMULARY Take 90 mg by mouth in the morning and 90 mg before bedtime. Med Name: iron. pantoprazole (PROTONIX) 40 mg EC tablet Take 1 tablet (40 mg total) by mouth in the morning and 1 tablet (40 mg total) before bedtime. PAROXETINE HCL ORAL 20 mg daily. sucralfate (CARAFATE) 1 gram tablet Take 1 tablet (1 g total) by mouth in the morning and 1 tablet (1 g total) at noon and 1 tablet (1 g total) in the evening and 1 tablet (1 g total) before bedtime. valsartan (DIOVAN) 40 mg tablet Take 0.5 tablets (20 mg total) by mouth in the morning. 30 tablet 11 warfarin (COUMADIN) 5 mg tablet TAKE ONE AND ONE HALF TO TWO TABLETS BY MOUTH DAILY DIRECTED 180 tablet 3 No current facility-administered medications for this visit. (All medications reviewed and updated by provider since last office visit or hospitalization) Allergies: Celecoxib, Niacin, and Prasugrel Tobacco History: Social History Tobacco Use Smoking Status Former Smokeless Tobacco Never (If patient a smoker, smoking cessation counseling offered) Social History: Social History Substance and Sexual Activity Alcohol Use No Review of Systems: General: Negative for chills and fever. Cardiovascular: Positive for shortness of breath Gastrointestinal: Positive for nausea -per HPI Physical Exam: BP 135/90 Pulse (!) 49 Ht 182.9 cm (6') Wt 105.7 kg (233 lb) BMI 31.60 kg/m Assessment and Plan: Sheeba was seen today for follow-up. Diagnoses and all orders for this visit: Urinary incontinence, unspecified type - Measure post void residual - Urine Culture; Future Problem List Genitourinary Urinary incontinence - Primary Overview 03/16/24: Urinary incontinence. Multifactorial. He was given a specimen cup to check a urine for culture. Additionally samples of Gemtesa given Relevant Orders Measure post void residual (Completed) Urine Culture Follow-up: Arash Drake MD This note was created with the assistance of a speech recognition program. While intending to generate a timely document that accurately reflects the content of the visit, no guarantee can be provided that every grammatical or spelling mistake has been or will be identified or corrected. Thank you for your understanding. documented in this encounter [employer] 03-15-2024 History of Present illness Narrative Images from the original note were not included. HISTORY OF PRESENT ILLNESS: EST PT Sheeba Adames is an 79 y.o. @ male. Left knee: EST PT RECHECK LT TKA 1998 (25YRS) AND RT TKA 2004 (19YRS) PER DR LEWIS- XRAY B/L KNEE TODAY EPIC 03/15/24 XRAY CHANGE 12/25/22 XRAY B/L KNEE EXA 12/26/21 XRAY RT KNEE EXA 05/23/21 XRAY B/L KNEE EXA 11/06/20 XRAYS 09/07/18 @ TRAV [facility] DOING WELL- DENIES PAIN WITH EITHER KNEE- PT IS PLEASED PT DID HAVE A STROKE 2013; AFFECTED RT SIDE PT IS ON COUMADIN. Right knee: S/P RT TKA PER DR LEWIS 2004 (19YRS) - DOING GREAT XRAY B/L KNEE TODAY EPIC 03/15/24 XRAY CHANGE 12/25/22 XRAY B/L KNEE 12/26/21 XRAY RT KNEE EXA 05/23/21 XRAY EXA 11/06/20 XRAYS TODAY 09/07/18 @ TRAV [facility] PT DID HAVE A STROKE 2013; AFFECTED RT SIDE. DOING GREAT- NO COMPLAINTS ALLERGIES: Allergies Allergen Reactions Celecoxib Unknown Niacin Unknown Prasugrel Unknown HOME MEDICATIONS: Current Outpatient Medications Medication Instructions Accu-Chek Softclix Lancets lancets use 1 LANCET to TEST BLOOD SUGAR once daily acetaminophen (TYLENOL) 650 mg, Oral, Every 4 hours PRN albuterol HFA 90 mcg/act inhaler 2 puffs, Inhalation, Every 4 hours PRN aspirin 81 MG EC tablet 1 tablet DAILY (route: oral) atorvastatin (Lipitor) 80 MG tablet Every 24 hours Elastic Bandages & Supports (Tubular Stretch Bandage) misc Size E. Wash and dry legs daily, apply moisturizer. Apply to tubular bandage to bilateral lower legs daily, may remove at bedtime. ferrous sulfate 325 mg, Oral, 3 times daily with meals, Do not crush, chew, or split. furosemide (LASIX) 40 mg, Oral, Daily glucose blood (Accu-Chek Irina Plus) test strip 1 each, Other, 4 times daily before meals and nightly guaiFENesin (MUCINEX) 600 mg, Oral, 2 times daily insulin aspart, with niacinamide, (Fiasp FlexTouch) 100 UNIT/ML injection SSI TID before [id number] 2u, 201-250 4u, 251-300 6u, 301-350 8u, 351-400 10u. SSI [id number] 2u, 251-300 4u, 301-350 6u, 351-400 8u insulin pen needle 31G X 8 mm misc Use 4 x daily. magnesium oxide (MAG-OX) 400 mg, Oral, 2 times daily metoprolol succinate XL (TOPROL-XL) 50 mg, Oral, Daily, Do not crush or chew. Per cardio midodrine (PROAMATINE) 5 mg, Oral, 3 times daily PRN, Per cardio nitroglycerin (Nitrostat) 0.4 MG SL tablet Sublingual pantoprazole (PROTONIX) 40 mg, Oral, 2 times daily, Do not crush, chew, or split. PARoxetine (PAXIL) 20 mg, Oral, Every morning sucralfate (Carafate) 1 g tablet warfarin (Coumadin) 5 MG tablet Every 24 hours, Managed per coumadin clinic.
PHYSICAL EXAM: Knee Musculoskeletal Exam Gait Gait is normal. Ambulation assistive devices: rollator. Inspection Leg length disparity: no discrepancy Right Erythema: none Effusion: none Edema: none Ecchymosis: none Deformity: none Alignment: normal Previous incision: anterior Incision: well-healed Left Erythema: none Effusion: none Edema: none Ecchymosis: none Deformity: none Alignment: normal Previous incision: anterior Incision: well-healed Palpation Right Right knee palpation is unremarkable. Increased warmth: none Masses: none Tenderness: none Left Left knee palpation is unremarkable. Increased warmth: none Masses: none Tenderness: none Range of Motion Right Right knee range of motion is normal and full. Active extension: 0 Active flexion: 120 Left Left knee range of motion is normal and full. Active extension: 0 Active flexion: 120 Strength Right Right knee strength is normal. Extension: 5/5. Flexion: 5/5. Left Left knee strength is normal. Extension: 5/5. Flexion: 5/5. Instability Right Instability signs: none - stable Varus stress grade: normal Valgus stress grade: normal Left Instability signs: none - stable Varus stress grade: normal Valgus stress grade: normal Neurovascular Right Right knee neurovascular exam is normal. Pulses - PT: normal Posterior tibial: 2+ Capillary refill: warm and well-perfused Left Left knee neurovascular exam is normal. Pulses - PT: normal Posterior tibial: 2+ Capillary refill: warm and well-perfused Special Signs Right Right knee special signs are normal. Patellar apprehension: none Left Left knee special signs are normal. Patellar apprehension: none Vitals: There is no height or weight on file to calculate BMI. Tobacco Use: Medium Risk (03/15/2024) Patient History Smoking Tobacco Use: Former Smokeless Tobacco Use: Never Passive Exposure: Not on file Alcohol Use: Not At Risk (01/29/2024) AUDIT-C Frequency of Alcohol Consumption: Never Average Number of Drinks: Patient does not drink Frequency of Binge Drinking: Never IMAGING: Procedures Orders Placed This Encounter Procedures XR knee 1 or 2 views right Order Specific Question: Reason for exam: Answer: PAIN XR knee 1 or 2 views left Order Specific Question: Views Answer: AP Order Specific Question: Views Answer: Lateral Order Specific Question: Reason for exam: Answer: PAIN ASSESSMENT: ICD-10-CM 1. History of bilateral knee replacement Z96.653 2. Acute pain of left knee M25.562 XR knee 1 or 2 views left 3. Acute pain of right knee M25.561 XR knee 1 or 2 views right PLAN: We have answered all the patients questions and explained the patients condition, decision making and plan including the risks and benefits associated with said plan in layman''s terms in a language the patient could understand easily. If patient''s symptoms significantly worsen and they cannot get a hold of us or their family physician, we have recommended that the patient proceed to the nearest emergency department (room). Dr. Palma obtained history and examined the patient, I am acting as scribe for Dr. Palma/maki, PLAN: We have discussed b/l knee xrays with patient at bedside. Patient is pleased with his b/l knee progress as he admits his b/l knees are better now than they were prior to sx. He has good strength / ROM of his b/l knees with examination. We have discussed his HEP and restrictions and will see him back in 1 year to reassess his b/l knees with repeat xrays. Camron Palma D.O. documented in this encounter [facility] 03-11-2024 History of Present illness Narrative Eliana from [facility] called ([phone], ok to [facility]) INR today is 1.6. Eliana reports no med/diet/health changes, no missed or extra doses, no bleeding or bruising, no upcoming procedures. Current warfarin dose is 5mg on Mon, Weds, Fri, 7.5mg AOD. Next home visit is scheduled for 03/18. Ok to call patient w/dosing. Please fax orders to [phone]. Call to preferred number cannot be completed x 2. Will attempt again later. Result received from [facility]. INR 1.6 today (goal range: 2.0-3.0). Left voicemail for patient's , Mar at [phone] with the following instructions including INR result: Assessment: INR remains subtherapeutic after patient recently resumed warfarin therapy 6 days ago s/p EGD. [facility] had instructed for increased dose PTP and until today's recheck, but nursing reports patient resumed previous dosing regimen. Asked for call back if this is not accurate. Will plan to aim for slightly higher TWD. Plan: Patient instructed to increase to warfarin 5 mg on Mon, Wed; 7.5 mg all other days. Check INR in 1 week(s). Order faxed to [facility]. Patient instructed to return call to discuss INR result, anticoagulant dosing instructions, and follow-up INR redraw date as well as confirm current warfarin regimen and assess any recent changes in medications, lifestyle (diet / alcohol / smoking / activity), or health. Patient also instructed to report any upcoming procedures or signs/symptoms of bleeding or clotting. Dulce Sommer RPH 03/11/24 1313 Patient's , Mar, called for clarification on new dosing. Paper Latcher advised Mar that instructions are to take 5mg on Mon and Weds and 7.5mg all other days. Mar v/u. documented in this encounter [facility] 03-08-2024 Miscellaneous Notes [facility] [address] [facility] [id number] New referral received by [facility] for heart failure. Patient was contacted to schedule appointment at [facility] ([facility]). This was my first attempt to reach the patient and a message was left on their voicemail requesting a callback. Patient will be asked to bring [facility] Additional Info: Medication List, Blood Pressure Cuff, and Weight Log. Referring provider: LAUREANO Travis documented in this encounter [facility] 03-08-2024 Telephone encounter Note [facility] [address] [facility] [phone] New referral received by [facility] for heart failure. Patient was contacted to schedule appointment at [facility] ([facility]). This was my first attempt to reach the patient and a message was left on their voicemail requesting a callback. Patient will be asked to bring [facility] Additional Info: Medication List, Blood Pressure Cuff, and Weight Log. Referring provider: LAUREANO Travis [facility] 02-26-2024 History of Present illness Narrative Eliana Mata called ([phone]). INR today 1.5. Eliana reports no med/diet/health changes, no missed or extra doses, no bleeding or bruising. Eliana reports that the patient is scheduled for an endoscopy on 03/05. Current warfarin dose is: Th02/18 7.5mg Sat 02/20 7.5mg Sun 02/21 7.5mg Tues 02/23 7.5mg 5mg AOD Next home visit is scheduled for 03/04. Ok to call patient's w/dosing. Please fax orders to [phone]. Result received from [facility]. INR 1.5 (goal range: 2.0-3.0). Left voicemail for patient at [phone] () with the following instructions including INR result: Assessment: INR subtherapeutic on current regimen. Patient has EGD on 03/05/24. It was already discussed with regarding holding warfarin four days prior with no bridging Plan: Patient instructed to increase to warfarin 7.5 mg daily. Start holding warfarin 03/01-03/04. Restart on 03/05/24 at 7.5 mg daily. Check INR in 2 week(s). Patient instructed to return call to discuss INR result, anticoagulant dosing instructions, and follow-up INR redraw date as well as confirm current warfarin regimen and assess any recent changes in medications, lifestyle (diet / alcohol / smoking / activity), or health. Patient also instructed to report any upcoming procedures or signs/symptoms of bleeding or clotting. Henrique Puga RPH 02/26/24 1406 documented in this encounter [facility] 02-26-2024 Nurse Note Preoperative Education Checklist- General Surgery date: 03/05/24 Surgery time: 830a Arrival time: 630a 1. Bring a photo ID and your insurance card with you the day of surgery. You will check in at the main lobby of the [facility]- registration desk is straight ahead as soon as you walk in. Tell them you are here for surgery. 2. If you have a Living Will/Durable Power of Field Sales Associate for Health Care that is not on file here, please bring a copy the day of surgery. 3. Please shower/bathe the night before surgery with the provided soap or wipes. Do not shower the morning of surgery- you will do use wipes when you arrive here at the hospital before getting into your surgical gown. Do not shave the area of your procedure for 2 days prior to your surgery. 4. NO powder, lotion, perfume/cologne, aftershave, make-up, deodorant, or hair products after you have bathed. 5. NO nail montserratian/acrylic on at least one finger. If you are having a hand, wrist or foot surgery then all nail montserratian and artificial/acrylic nails must be removed from that hand or foot. 6. Avoid ALL Aspirin and non-steroidal anti-inflammatory drugs and certain vitamins (Ibuprofen, Advil, Aleve, Excedrin, Meloxicam, Celebrex, fish/krill oil, etc.) for 7 days prior to surgery as instructed by your surgeon and/or your prescribing doctor. Tylenol IS ALLOWED. If you are on Ticlid, Xarelto, Eliquis, Pradaxa, Plavix or Coumadin, please check with your prescribing doctor for instructions for when to stop them. 7. If you use an inhaler, continue to use it routinely. 8. Nothing to eat or drink (not even water, gum, mints, or hard candy!) AFTER midnight prior to your surgery. 9. Take only medications that you are instructed to on the morning of surgery with a TINY SIP OF WATER. 10. Choose a responsible adult that will be able to drive you home when you are discharged from your hospital stay for your surgery and can stay with you in your home for 24 hours after your procedure. You must NOT drive any vehicle or operate any machinery for 24 hours after surgery. 11. When you dress for your appointment, please wear loose fitting clothing that is appropriate to accommodate your surgical area procedure. BRING WITH YOU ANY DEVICES YOU MAY NEED: NEENA hose, ice machine, sling/swath, brace or special shoe, oversized zip-up or button up shirt, CPAP machine if staying overnight. 12. Do NOT wear jewelry, watches, or any piercings or metal for surgery- leave these valuables and money at home. 13. Do NOT wear contact lenses for surgery- glasses are okay if needed. 14. The anesthesiologist will talk with you the day of surgery and will ask you to sign a Consent Form. 15. Refrain from smoking or any type of tobacco use for at least 8 hours and marijuana for 24 hours prior to arrival for your surgery. 16. If a GREEN BLOOD band is given to you, please bring it with you for the day of surgery. 17. Notify your surgeon if you develop any illness before your surgery. 18. If you are staying overnight, please DO NOT BRING your home medications with you. 19. If you have any questions prior to surgery, please call the Preadmission Testing office at [phone], Mon.-Fri. 7 a.m.-3 p.m. Leave a voicemail if needed. Pre-Surgery Instructions: Medication Instructions aspirin 81 mg Check with prescribing doctor for instructions atorvastatin (LIPITOR) 80 mg tablet Stop taking 0 days prior to procedure FIASP FLEXTOUCH U-100 INSULIN 100 unit/mL (3 mL) insulin pen Stop taking 0 days prior to procedure furosemide (LASIX) 40 mg tablet Stop taking 0 days prior to procedure insulin lispro (HumaLOG) 100 unit/mL insulin pen Check with prescribing doctor for instructions insulin lispro (HumaLOG) 100 unit/mL insulin pen Check with prescribing doctor for instructions magnesium oxide 400 mg magnesium tablet Stop taking 0 days prior to procedure metoprolol succinate XL (TOPROL XL) 50 mg 24 hr tablet Take morning of procedure midodrine (PROAMATINE) 2.5 mg tablet Take morning of procedure if needed NON FORMULARY Stop taking 0 days prior to procedure PAROXETINE HCL ORAL Stop taking 0 days prior to procedure sucralfate (CARAFATE) 1 gram tablet Stop taking 0 days prior to procedure warfarin (COUMADIN) 5 mg tablet Check with prescribing doctor for instructions acetaminophen (TYLENOL) 325 mg tablet Stop taking 0 days prior to procedure nitroglycerin (NITROSTAT) 0.4 MG SL tablet Take morning of procedure if needed pantoprazole (PROTONIX) 40 mg EC tablet Stop taking 0 days prior to procedure [facility] [employer] [facility] 02-26-2024 Miscellaneous Notes Preoperative Education Checklist- General Surgery date: 03/05/24 Surgery time: 830a Arrival time: 630a 1. Bring a photo ID and your insurance card with you the day of surgery. You will check in at the main lobby of the [facility]- registration desk is straight ahead as soon as you walk in. Tell them you are here for surgery. 2. If you have a Living Will/Durable Power of Field Sales Associate for Health Care that is not on file here, please bring a copy the day of surgery. 3. Please shower/bathe the night before surgery with the provided soap or wipes. Do not shower the morning of surgery- you will do use wipes when you arrive here at the hospital before getting into your surgical gown. Do not shave the area of your procedure for 2 days prior to your surgery. 4. NO powder, lotion, perfume/cologne, aftershave, make-up, deodorant, or hair products after you have bathed. 5. NO nail montserratian/acrylic on at least one finger. If you are having a hand, wrist or foot surgery then all nail montserratian and artificial/acrylic nails must be removed from that hand or foot. 6. Avoid ALL Aspirin and non-steroidal anti-inflammatory drugs and certain vitamins (Ibuprofen, Advil, Aleve, Excedrin, Meloxicam, Celebrex, fish/krill oil, etc.) for 7 days prior to surgery as instructed by your surgeon and/or your prescribing doctor. Tylenol IS ALLOWED. If you are on Ticlid, Xarelto, Eliquis, Pradaxa, Plavix or Coumadin, please check with your prescribing doctor for instructions for when to stop them. 7. If you use an inhaler, continue to use it routinely. 8. Nothing to eat or drink (not even water, gum, mints, or hard candy!) AFTER midnight prior to your surgery. 9. Take only medications that you are instructed to on the morning of surgery with a TINY SIP OF WATER. 10. Choose a responsible adult that will be able to drive you home when you are discharged from your hospital stay for your surgery and can stay with you in your home for 24 hours after your procedure. You must NOT drive any vehicle or operate any machinery for 24 hours after surgery. 11. When you dress for your appointment, please wear loose fitting clothing that is appropriate to accommodate your surgical area procedure. BRING WITH YOU ANY DEVICES YOU MAY NEED: NEENA hose, ice machine, sling/swath, brace or special shoe, oversized zip-up or button up shirt, CPAP machine if staying overnight. 12. Do NOT wear jewelry, watches, or any piercings or metal for surgery- leave these valuables and money at home. 13. Do NOT wear contact lenses for surgery- glasses are okay if needed. 14. The anesthesiologist will talk with you the day of surgery and will ask you to sign a Consent Form. 15. Refrain from smoking or any type of tobacco use for at least 8 hours and marijuana for 24 hours prior to arrival for your surgery. 16. If a GREEN BLOOD band is given to you, please bring it with you for the day of surgery. 17. Notify your surgeon if you develop any illness before your surgery. 18. If you are staying overnight, please DO NOT BRING your home medications with you. 19. If you have any questions prior to surgery, please call the Preadmission Testing office at [phone], Mon.-Fri. 7 a.m.-3 p.m. Leave a voicemail if needed. Pre-Surgery Instructions: Medication Instructions aspirin 81 mg Check with prescribing doctor for instructions atorvastatin (LIPITOR) 80 mg tablet Stop taking 0 days prior to procedure FIASP FLEXTOUCH U-100 INSULIN 100 unit/mL (3 mL) insulin pen Stop taking 0 days prior to procedure furosemide (LASIX) 40 mg tablet Stop taking 0 days prior to procedure insulin lispro (HumaLOG) 100 unit/mL insulin pen Check with prescribing doctor for instructions insulin lispro (HumaLOG) 100 unit/mL insulin pen Check with prescribing doctor for instructions magnesium oxide 400 mg magnesium tablet Stop taking 0 days prior to procedure metoprolol succinate XL (TOPROL XL) 50 mg 24 hr tablet Take morning of procedure midodrine (PROAMATINE) 2.5 mg tablet Take morning of procedure if needed NON FORMULARY Stop taking 0 days prior to procedure PAROXETINE HCL ORAL Stop taking 0 days prior to procedure sucralfate (CARAFATE) 1 gram tablet Stop taking 0 days prior to procedure warfarin (COUMADIN) 5 mg tablet Check with prescribing doctor for instructions acetaminophen (TYLENOL) 325 mg tablet Stop taking 0 days prior to procedure nitroglycerin (NITROSTAT) 0.4 MG SL tablet Take morning of procedure if needed pantoprazole (PROTONIX) 40 mg EC tablet Stop taking 0 days prior to procedure documented in this encounter [facility] 02-19-2024 Miscellaneous Notes Mar, patients LVM P:[phone] to inform that the patient will have to hold his warfarin 4 days PTP that is on 03/05/[address] [facility] [address] Lau. Mar can be called to discuss further. Called back. Reviewed chart. In December during admission warfarin was held with no heparin or LMWH. Also in August he did not bridge for urology procedure. Will plan to not bridge for procedure. He will start holding warfarin 03/01/24-03/04/24. Restart after procedure. Will discuss again with patient or next week after INR received. documented in this encounter [facility] 02-19-2024 Telephone encounter Note Mar, patients LVM P:[phone] to inform that the patient will have to hold his warfarin 4 days PTP that is on 03/05/[address] [facility] [address] Lau. Mar can be called to discuss further. [facility] 02-19-2024 Telephone encounter Note Called back. Reviewed chart. In December during admission warfarin was held with no heparin or LMWH. Also in August he did not bridge for urology procedure. Will plan to not bridge for procedure. He will start holding warfarin 03/01/24-03/04/24. Restart after procedure. Will discuss again with patient or next week after INR received. [employer] Work Phone: 02-19-2024 History of Present illness Narrative Eliana from [facility] (P: [phone]). Today, INR is 1.3. Eliana reports no diet changes, no missed or extra doses, no bleeding or bruising, and no upcoming procedures. Next nursing visit: 02/26/24. Please fax an order to [facility] at [phone]. Contact , Mar, with dosing. Result received from [facility]. INR 1.3 (goal range: 2.0-3.0). Left voicemail for patient at [phone] () with the following instructions including INR result: Assessment: INR remaining subtherapeutic. Will start to be more aggressive with dose adjustments. Plan: Patient instructed to increase to warfarin 5 mg MWF, 7.5 mg all other days. This is about a 17% increase. At one time was taking a weekly regimen that consisted of 10 mg and 7.5 mg doses. Check INR in 1 week(s). It also appears EGD scheduled for 03/05/24. Assuming warfarin will need to be held. Will need to discuss with patient next week. Patient has bridged in the past but also refused. Patient instructed to return call to discuss INR result, anticoagulant dosing instructions, and follow-up INR redraw date as well as confirm current warfarin regimen and assess any recent changes in medications, lifestyle (diet / alcohol / smoking / activity), or health. Patient also instructed to report any upcoming procedures or signs/symptoms of bleeding or clotting. Henrique Puga RPH 02/19/24 1406 documented in this encounter [facility] 02-12-2024 History of Present illness Narrative Alma from [facility] called (P: [phone]). Today, INR is 1.3. Current Warfarin dose: 7.5 mg on 02/05/24, then 5 mg daily. Alma reports no med/diet/health changes, no missed or extra doses, no bleeding or bruising, no upcoming procedures. Next nursing visit: 02/19/24. Please contact , Mar, with dosing at [phone]. Fax order to [facility] at [phone]. Result received from [facility]. INR 1.3 (goal range: 2.0-3.0). Spoke to patient's , Mar, who reports patient findings: Taking warfarin dosing as documented. Missed or extra doses of warfarin: the pt's states that the pt only took 2.5mg by mistake on Friday or Friday. Changes to medications: Yes, metoprolol tartrate 25mg BID was changed to succinate 50mg once daily Ferrous sulfate was increased from once daily to BID dosing Changes to lifestyle (diet / alcohol / smoking / activity): the pt's reports a good appetite Recent emergency department visit / hospitalization / health changes / new contraindication to current anticoagulant: No Signs/symptoms of bruising/bleeding or clotting: No Upcoming procedures: No Anticoagulant prescription needed: No Seen referring provider in the last year Duration of therapy reviewed Assessment: INR is subtherapeutic due to a missed half dose earlier this week. Will boost today and resume 5mg daily. Plan: Patient instructed to increase to warfarin 7.5mg today followed by 5mg daily. Check INR in 1 week(s). Orders faxed. Patient and/or caregiver verbalizes understanding of anticoagulant dosing instructions and information discussed. Dosing regimen, counseling, and follow-up INR redraw date were provided. Patient reminded to call with questions or any medication changes. Patient instructed to seek medical attention if any major bleeding/bleeding that persists or worsens. Fidelia Zhu [facility] 02/12/24 4969 documented in this encounter [employer] 02-05-2024 History of Present illness Narrative Eliana from [facility] called ([phone]). INR today 1.3. Eliana reports no med/diet/health changes, no missed or extra doses, no bleeding or bruising. Stress test on 02/09 with [facility]. Current warfarin dosing is 5mg on and . Next home visit is scheduled for 02/11. Ok to call patient's , Mar, w/dosing. Please fax orders to [phone]. Result received from [facility]. INR 1.3 today (goal range: 2.0-3.0). Spoke to patient's , Mar, who reports patient findings: Taking warfarin dosing as documented. Missed or extra doses of warfarin: No Changes to medications: No Changes to lifestyle (diet / alcohol / smoking / activity): No Recent emergency department visit / hospitalization / health changes / new contraindication to current anticoagulant: No Signs/symptoms of bruising/bleeding or clotting: No Upcoming procedures: YES Stress test on 02/10/24 Anticoagulant prescription needed: No Seen referring provider in the last year Duration of therapy reviewed Assessment: INR remains subtherapeutic. INRs recently labile after recent return home from SNF. Patient has required higher doses of warfarin in the past, but INR in recent months has been elevated above goal range with changing warfarin requirements 2/2 health changes. Will boost x 1 today. Plan: Patient instructed to increase to warfarin 7.5 mg on 02/05/24 x 1 then resume 5 mg once daily. Check INR in 1 week(s) at next nursing visit. Order faxed to [facility]. Patient and/or caregiver verbalizes understanding of anticoagulant dosing instructions and information discussed. Dosing regimen, counseling, and follow-up INR redraw date were provided. Patient reminded to call with questions or any medication changes. Patient instructed to seek medical attention if any major bleeding/bleeding that persists or worsens. Dulce Sommer [facility] 02/05/24 1133 documented in this encounter [facility] 02-04-2024 Miscellaneous Notes Rosio from [facility] P:[phone] requesting a new order for the patient to be tested on 02/04 and not 02/05. Fax number :[phone] New order faxed with updated draw date. documented in this encounter [facility] 02-04-2024 Telephone encounter Note Rosio from [facility] P:[phone] requesting a new order for the patient to be tested on 02/04 and not 02/05. Fax number :[phone] [facility] 02-04-2024 Telephone encounter Note New order faxed with updated draw date. [facility] Work Phone: 02-03-2024 History of Present illness Narrative Eliana from [facility] P:[phone] INR today 1.3 Eliana reports no diet changes, no missed or extra doses, no unusual bleeding or bruising. Dose reported 5 mg daily F/U 02/05 OK to call patient with dosing Fax orders to [phone] Result received from [facility]. INR 1.3 (goal range: 2.0-3.0). Spoke to patient's ,Mar, who reports patient findings: Taking warfarin dosing as documented. Missed or extra doses of warfarin: No Changes to medications: No Changes to lifestyle (diet / alcohol / smoking / activity): No Recent emergency department visit / hospitalization / health changes / new contraindication to current anticoagulant: No Signs/symptoms of bruising/bleeding or clotting: No Upcoming procedures: No Anticoagulant prescription needed: No Seen referring provider in the last year Duration of therapy reviewed Assessment: INR subtherapeutic likely from multiple held doses last week. Mar did request calling her number with results moving forward. Number listed in Epic. Plan: Patient instructed to continue warfarin 5 mg daily. Check INR in 3 day(s). Order faxed to [facility]. Patient and/or caregiver verbalizes understanding of anticoagulant dosing instructions and information discussed. Dosing regimen, counseling, and follow-up INR redraw date were provided. Patient reminded to call with questions or any medication changes. Patient instructed to seek medical attention if any major bleeding/bleeding that persists or worsens. Brent Tan RPH 02/03/24 1619 documented in this encounter [employer] 02-02-2024 History of Present illness Narrative Sheeba Mirza Adames Date of visit: 02/02/2024 Date of : 1945 Age: 79 y.o. Patient Active Problem List Diagnosis Cerebrovascular disease Coronary artery disease involving [place] coronary artery of [place] heart without angina pectoris Hyperlipidemia Mineral metabolism disorder Elevated PSA Bladder cancer (CMS-HCC) Presence of coronary angioplasty implant and graft Severe obesity (BMI 35.0-39.9) with comorbidity (CMS-HCC) Benign prostatic hyperplasia with urinary obstruction E. 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 Bulbous urethral stricture Actinic keratosis Cerebral infarction ([facility]) History of myocardial infarction Iron deficiency anemia Neck pain Nephrolithiasis Neurologic disorder associated with diabetes mellitus ([facility] 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 ([facility]) Peripheral edema Type 2 diabetes mellitus without complication ([facility]) Venous insufficiency (chronic) (peripheral) Venous stasis ulcer of left lower leg with edema of left lower leg ([facility]) Lymphedema Supratherapeutic INR LOUISA (acute kidney injury) ([facility]) Hypokalemia Acute on chronic diastolic congestive heart failure ([facility]) Hydronephrosis Hydroureter Hypomagnesemia E coli bacteremia Occult blood positive stool Allergies Allergen Reactions Celecoxib Dizziness Niacin Rash Prasugrel Other (See Comments) and Rash Current Outpatient Medications Medication Sig Dispense Refill acetaminophen (TYLENOL) 325 mg tablet Take 2 tablets (650 mg total) by mouth every 6 (six) hours as needed for fever, headaches or pain. 30 tablet 0 aspirin 81 mg Take 1 tablet (81 mg total) by mouth in the morning. 30 tablet 11 atorvastatin (LIPITOR) 80 mg tablet Take 1 tablet (80 mg total) by mouth in the morning. 90 tablet 3 ferrous sulfate 325 (65 FE) mg tablet Take 1 tablet (325 mg total) by mouth daily with breakfast for 30 days. 30 tablet 0 furosemide (LASIX) 40 mg tablet Take 1 tablet (40 mg total) by mouth daily for 30 days. 30 tablet 0 guaiFENesin (MUCINEX) 600 mg tablet extended release 12hr Take 1 tablet (600 mg total) by mouth every 12 (twelve) hours. insulin lispro (HumaLOG) 100 unit/mL insulin pen Daytime hyperglycemia [id number] mg/dL, give 2 units. 201-250 mg/dL, give 4 units. 251-300 mg/dL, give 6 units. 301-350 mg/dL, give 8 units. 351-400 mg/dL, give 10 units. 15 mL 0 insulin lispro (HumaLOG) 100 unit/mL insulin pen Bedtime hyperglycemia dosing. 201-250 mg/dL, give 2 units. 251-300 mg/dL, give 4 units. 301-350 mg/dL, give 6 units. 351-400 mg/dL, give 8 units. 15 mL 0 magnesium oxide (MAGOX) 400 mg tablet Take 1 tablet (400 mg total) by mouth in the morning and 1 tablet (400 mg total) before bedtime. Do all this for 30 days. 60 tablet 0 nitroglycerin (NITROSTAT) 0.[address] 1 tablet (0.4 mg total) under the tongue every 5 (five) minutes as needed for chest pain (for chest pain). 25 tablet 3 pantoprazole (PROTONIX) 40 mg EC tablet Take 1 tablet (40 mg total) by mouth in the morning and 1 tablet (40 mg total) in the evening. Take before meals. Do all this for 35 days. 70 tablet 0 PAROXETINE HCL ORAL 20 mg daily. warfarin (COUMADIN) 5 mg tablet TAKE ONE AND ONE HALF TO TWO TABLETS BY MOUTH DAILY DIRECTED 180 tablet 3 metoprolol succinate XL (TOPROL XL) 50 mg 24 hr tablet Take 1 tablet (50 mg total) by mouth in the morning. 90 tablet 3 midodrine (PROAMATINE) 2.5 mg tablet Take 2 tablets (5 mg total) by mouth Three (3) times daily after meals as needed (For SBP < 100). Hold for systolic > 100 No current facility-administered medications for this visit. Chief Complaint Patient presents with Follow-up EST PT F/U 6 MS L/S MS IP MIKA SCHED W/PT History of Present Illness Patient with history of coronary disease with stent to the LAD and circumflex, FUEL [employer]IL [employer] RCA, paroxysmal atrial fibrillation, mild MR/TR, CVA, hypertension, hyperlipidemia, diabetes mellitus, bladder cancer. Echocardiogram done in December showing new cardiomyopathy with EF 35-40%, previous echo in 2020 with normal EF. Here for follow-up visit. Stated that he is doing well. Reports feeling short of breath after taking 30s steps. No orthopnea or edema. Reported having chest achiness that occurs with exertion and resolves with rest. Has not been using sublingual nitro as his chest discomfort resolves very quick. No palpitations or dizziness or syncope or presyncope. Stated that he was on midodrine 5 mg t.i.d. although stop taking it. Blood pressure 130/68 today. Stated that systolic blood pressure at home usually average in the 100s to 110s. Past Medical History: Diagnosis Date Arthritis Atrial fibrillation ([facility]) Coronary artery disease 3 stents 2004 Diabetes mellitus type 2, controlled ([facility]) Hyperlipidemia Hypertension Presence of coronary angioplasty implant and graft Shortness of breath Skin cancer and bladder Stroke ([facility]) TIA (transient ischemic attack) Urinary frequency Visual impairment No data recorded No data recorded No data recorded Past Surgical History: Procedure Laterality Date APPENDECTOMY BACK SURGERY BIOPSY BLADDER N/A 08/27/2023 Performed by Fabián Bishop MD at [facility] CARDIAC CATHETERIZATION CAROTID STENT 3 valves COLONOSCOPY DIAGNOSTIC / SCREENING N/A 01/02/2024 Performed by Anni Lau MD at [facility] CYSTOSCOPY N/A 08/27/2023 Performed by Fabián Bishop MD at [facility] CYSTOSCOPY N/A 08/19/2022 Performed by Fabián Bishop MD at [facility] CYSTOSCOPY N/A 11/12/2021 Performed by Fabián Bishop MD at [facility] CYSTOSCOPY N/A 05/14/2021 Performed by Fabián Bishop MD at [facility] CYSTOSCOPY N/A 05/03/2020 Performed by Fabián Bishop MD at [facility] CYSTOSCOPY N/A 12/13/2019 Performed by Fabián Bishop MD at [facility] CYSTOSCOPY N/A 03/25/2018 Performed by Fabián Bishop MD at [facility] CYSTOSCOPY N/A 08/04/2017 Performed by Fabián Bishop MD at [facility] CYSTOSCOPY DILATATION URETHRAL N/A 08/27/2023 Performed by Fabián Bishop MD at [facility] CYSTOSCOPY DILATATION URETHRAL N/A 03/03/2023 Performed by Fabián Bishop MD at [facility] CYSTOSCOPY DILATATION URETHRAL N/A 11/12/2021 Performed by Fabián Bishop MD at [facility] CYSTOSCOPY DILATATION URETHRAL N/A 05/14/2021 Performed by Fabián Bishop MD at [facility] CYSTOSCOPY DILATATION URETHRAL N/A 12/13/2019 Performed by Fabián Bishop MD at [facility] CYSTOSCOPY DILATATION URETHRAL Bilateral 09/23/2018 Performed by Fabián Bishop MD at [facility] CYSTOSCOPY DILATATION URETHRAL BULBAR N/A 08/19/2022 Performed by Fabián Bishop MD at [facility] CYSTOSCOPY RETROGRADE PYELOGRAM Bilateral 03/03/2023 Performed by Fabián Bishop MD at [facility] CYSTOSCOPY RETROGRADE PYELOGRAM Bilateral 11/15/2020 Performed by Fabián Bishop MD at [facility] CYSTOSCOPY RETROGRADE PYELOGRAM Bilateral 04/21/2019 Performed by Fabián Bishop MD at [facility] CYSTOSCOPY RETROGRADE PYELOGRAM Bilateral 01/13/2017 Performed by Fabián Bishop MD at [facility] CYSTOSCOPY W/ INTERNAL URETHROTOMY 08/14/2015 stent removal CYSTOSCOPY WITH DILATATION N/A 05/03/2020 Performed by Fabián Bishop MD at [facility] ESOPHAGOGASTRODUODENOSCOPY DIAGNOSTIC N/A 01/02/2024 Performed by Anni Lau MD at [facility] EXTERNAL EAR SURGERY left ear, cancer removal EYE SURGERY HERNIA REPAIR february 2010 and 2012 LASIK TONSILLECTOMY TOTAL KNEE ARTHROPLASTY TRANSURETHRAL RESECTION OF BLADDER TUMOR 07/05/2015 TRANSURETHRAL RESECTION OF PROSTATE Family History Problem Relation Age of Onset Heart failure Father No Known Problems Mother Social History Socioeconomic History Marital status: Spouse name: Not on file Number of children: Not on file Years of education: Not on file Highest education level: Not on file Occupational History Not on file Tobacco Use Smoking status: Former Smokeless tobacco: Never Vaping Use Vaping status: Never Used Substance and Sexual Activity Alcohol use: No Drug use: No Sexual activity: Defer Partners: Female Other Topics Concern Caffeine Use Yes Social History Narrative Not on file Social Determinants of Health Financial Resource Strain: Low Risk (01/29/2024) Received from [facility] Healthcare Overall Financial Resource Strain (CARDIA) Difficulty of Paying Living Expenses: Not hard at all Food Insecurity: No Food Insecurity (02/02/2024) Hunger Screening Food Insecurity - Worry: Never True Food Insecurity - Inability: Never True Transportation Needs: No Transportation Needs (01/29/2024) Received from [facility] PR[facility] - Transportation Lack of Transportation (Medical): No Lack of Transportation (Non-Medical): No Physical Activity: Inactive (01/29/2024) Received from [facility] Exercise Vital Sign Days of Exercise per Week: 0 days Minutes of Exercise per Session: 0 min Stress: Stress Concern Present (01/29/2024) Received from [facility] [employer] [place] [employer] - Occupational Stress Questionnaire Feeling of Stress : To some extent Social Connections: Socially Isolated (01/29/2024) Received from [facility] Social Connection and Isolation Panel [NHANES] Frequency of Communication with Friends and Family: Once a week Frequency of Social Gatherings with Friends and Family: Never Attends [employer] Services: Never Active Member of Clubs or Organizations: No Attends Club or Organization Meetings: Never Marital Status: Interpersonal Safety: Not At Risk (12/26/2023) Humiliation, Afraid, Rape, and Kick questionnaire Fear of Current or Ex-Partner: No Emotionally Abused: No Physically Abused: No Sexually Abused: No Housing Instability: Unknown (01/29/2024) Received from [facility] Housing Stability Vital Sign Unable to Pay for Housing in the Last Year: No Number of Times Moved in the Last Year: Not on file Homeless in the Last Year: No Review of Systems Review of Systems Respiratory: Negative for cough, hemoptysis and wheezing. Gastrointestinal: Negative for abdominal pain, change in bowel habit and hematochezia. Genitourinary: Negative for dysuria and hematuria. Neurological: Negative for focal weakness, headaches and paresthesias. CARDIOVASCULAR: Please review HPI. Physical Examination General appearance: Alert, oriented and cooperative. In no acute distress. Skin: Warm and dry to touch. Head: Normocephalic, without obvious abnormality, atraumatic. Ears, Nose, Mouth, Throat: Throat clear without erythema or exudate. Dentition intact. Eyes: Conjunctivae unremarkable, EOM intact. Neck: No JVD, No carotid bruit. Neck supple, trachea midline. Respiratory: Clear to auscultation bilaterally, no use of accessory muscles. Cardiovascular: Irregularly irregular rhythm, normal rate, with normal S1 and S2 with no murmurs. Gastrointestinal: Soft, non-tender. Bowel sounds normal. Musculoskeletal: No peripheral edema. Neurologic: Oriented to time, person and place, affect appropriate. No focal/major motor defects noted. Psychiatric: Appropriate mood, memory and judgement. VITAL SIGNS: BP 130/68 (BP Site: Left Arm, BP Postition: Sitting) Pulse 69 Ht 182.9 cm (6') Wt 106.6 kg (235 lb) SpO2 96% BMI 31.87 kg/m Orders Placed or Reconciled This Encounter Medications metoprolol succinate XL (TOPROL XL) 50 mg 24 hr tablet Sig: Take 1 tablet (50 mg total) by mouth in the morning. Dispense: 90 tablet Refill: 3 DISCONTD: lisinopriL (PRINIVIL,ZESTRIL) 2.5 mg tablet Sig: Take 1 tablet (2.5 mg total) by mouth in the morning. Dispense: 30 tablet Refill: 11 midodrine (PROAMATINE) 2.5 mg tablet Sig: Take 2 tablets (5 mg total) by mouth Three (3) times daily after meals as needed (For SBP < 100). Hold for systolic > 100 Medications Discontinued During This Encounter Medication Reason metoprolol tartrate (LOPRESSOR) 25 mg tablet lisinopriL (PRINIVIL,ZESTRIL) 2.5 mg tablet midodrine (PROAMATINE) 10 mg tablet IMPRESSIONS/PLAN 1. History of myocardial infarction 2. History of coronary angioplasty with insertion of stent 3. Paroxysmal atrial fibrillation ([facility]) 4. Mild mitral regurgitation 5. History of CVA (cerebrovascular accident) 6. Essential hypertension 7. Hx of hyperlipidemia 8. Chest pain, unspecified type - Nuc stress Lexiscan; Future 9. HFrEF (heart failure with reduced ejection fraction) ([facility]) - [facility] - [place], [place]; Future Previous cardiac related labs and test results were reviewed and discussed with the patient. 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 Recently diagnosed with new onset cardiomyopathy EF 35-40%. Reports exertional chest discomfort and shortness of breath. NYHA class 3. Euvolemic on exam. Blood pressure normal today although usually runs low at home. Stop taking midodrine. Annabel nuclear stress test ordered to rule out ischemia. If positive will plan for diagnostic cardiac catheterization. Patient agreeable. Switch from Lopressor 25 mg b.i.d. to Toprol-XL 50 mg daily. Provided referral to Heart failure Clinic for assistance managing heart failure and up titrating meds. I to cough midodrine 5 mg t.i.d. on his list and switch him to midodrine 2.5 mg t.i.d. as needed for systolic blood pressure less than 110. Check BMP and Mg level. Counseled on salt and fluid restriction. Follow-up in 3 months or sooner if needed. Patient to call us with any cardiac questions or concerns. TODAYS ORDERS Orders Placed This Encounter Procedures [facility] - [place], [place] Nuc stress Lexiscan FOLLOW UP Return in about 3 months (around 05/04/2024). PCP: Shabana Costello MD Referring Physician: Shabana Costello MD [address] [place] [address] Pt given [facility] referral with phone number at checkout. He v/u they will call him to schedule. Pt will stop and get labs done today. Pt scheduled for stress test while in office. Instruction reviewed with pt. documented in this encounter [facility] 02-02-2024 Miscellaneous Notes Addended by: TIMOTHY KANG on: 02/02/2024 09:38 AM Modules accepted: Orders, Level of Service documented in this encounter [facility] 02-02-2024 Note Addended by: TIMOTHY KANG on: 02/02/2024 09:38 AM Modules accepted: Orders, Level of Service [facility] 01-30-2024 Miscellaneous Notes Called patient to remind them to bring their most current copy of their medication list with them to their appt. Patient verbalizes understanding. documented in this encounter [facility] 01-30-2024 Telephone encounter Note Called patient to remind them to bring their most current copy of their medication list with them to their appt. Patient verbalizes understanding. [facility] 01-29-2024 History of Present illness Narrative Niki from [facility] ([phone]). INR today is 1.8. Next home visit is scheduled for 02/02. No other information given. Result received from Martín. INR 1.8 (goal range: 2.0-3.0). Spoke to patient and/or caregiver who reports patient findings: Taking warfarin dosing as documented. Missed or extra doses of warfarin: No Changes to medications: No Changes to lifestyle (diet / alcohol / smoking / activity): No Recent emergency department visit / hospitalization / health changes / new contraindication to current anticoagulant: No Signs/symptoms of bruising/bleeding or clotting: No Upcoming procedures: No Anticoagulant prescription needed: No Seen referring provider in the last year Duration of therapy reviewed Assessment: INR has come down after held doses Plan: Patient instructed to restart warfarin at 5 mg daily. Redraw INR on Friday. Patient and/or caregiver verbalizes understanding of anticoagulant dosing instructions and information discussed. Dosing regimen, counseling, and follow-up INR redraw date were provided. Patient reminded to call with questions or any medication changes. Patient instructed to seek medical attention if any major bleeding/bleeding that persists or worsens. Henrique Puga RPH 01/29/24 1049 documented in this encounter [facility] 01-26-2024 History of Present illness Narrative Mehnaz from [facility] called (P: [phone]). Today, INR is 6.9. Current Warfarin dose: 7.5 mg daily. Result received from Martín. INR 6.9 (goal range: 2.0-3.0). Spoke to patient's , Mar, who reports patient findings: Taking warfarin dosing as documented. Missed or extra doses of warfarin: No Changes to medications: No Changes to lifestyle (diet / alcohol / smoking / activity): Yes, appetite is good, but patient fell Friday and activity level is reduced. Recent emergency department visit / hospitalization / health changes / new contraindication to current anticoagulant: Yes, patient was recently discharged home from a SNF on 01/23/24. Dosing during admission unknown. Signs/symptoms of bruising/bleeding or clotting: Yes, patient has some bruising and bleeding, but nothing overly concerning. Upcoming procedures: No Anticoagulant prescription needed: No Seen referring provider in the last year Duration of therapy reviewed Assessment: INR is supratherapeutic and dosing from patient's recent SNF admission is unknown. Will plan to hold warfarin and recheck an INR in 2-3 days. Of note, will need to re-establish warfarin dosing. Plan: Patient instructed to hold warfarin until instructed otherwise. Check INR in 2-3 day(s). Order faxed to Martín. Patient and/or caregiver verbalizes understanding of anticoagulant dosing instructions and information discussed. Dosing regimen, counseling, and follow-up INR redraw date were provided. Patient reminded to call with questions or any medication changes. Patient instructed to seek medical attention if any major bleeding/bleeding that persists or worsens. Marla Springer RPH 01/26/24 1423 documented in this encounter [facility] 01-15-2024 Miscellaneous Notes ----- Message from Dr. Anni Lau MD sent at 01/15/2024 10:03 AM EDT ----- Regarding: Pathology Please let patient know that biopsies from EGD showed gastritis and esophagitis. He should continue PPI and sucralfate as prescribed. Plan for repeat EGD in 2 months. He should avoid caffeine use, tobacco use, alcohol use, NSAID use and avoid triggering foods such as spicy foods, fatty food, tomato based foods or chocolate. Avoid large meals. Wait 3 hours prior to laying down after meal. Thank you ----- Message ----- From: Interface - Lab Results/Orders In Sent: 01/07/2024 10:57 AM EDT To: Anni Lau MD documented in this encounter [facility] 01-15-2024 Telephone encounter Note ----- Message from Dr. Anni Lau MD sent at 01/15/2024 10:03 AM EDT ----- Regarding: Pathology Please let patient know that biopsies from EGD showed gastritis and esophagitis. He should continue PPI and sucralfate as prescribed. Plan for repeat EGD in 2 months. He should avoid caffeine use, tobacco use, alcohol use, NSAID use and avoid triggering foods such as spicy foods, fatty food, tomato based foods or chocolate. Avoid large meals. Wait 3 hours prior to laying down after meal. Thank you ----- Message ----- From: Interface - Lab Results/Orders In Sent: 01/07/2024 10:57 AM EDT To: nAni Lau MD [facility] 01-14-2024 Miscellaneous Notes This nurse called [facility] ([phone], ext. [phone]) to see how the Pt. Was voiding since his void trial yesterday. Spoke to Roseline, and she stated that he is voiding okay. He was incontinent last night. Pt. Reported to her this morning at his med pass that he voiding alright. Roseline did request that she see his urine later to ensure that it looks alright. But Pt. Hasn't reported any abdominal pain, fullness or trouble voiding. This nurse informed her that if he does start to experience any of these, scan his bladder and then call this office back. We can then get ahold of the doctor for further orders. No other questions at this time. documented in this encounter [facility] 01-14-2024 Telephone encounter Note This nurse called [facility] ([phone], ext. [phone]) to see how the Pt. Was voiding since his void trial yesterday. Spoke to Roseline, and she stated that he is voiding okay. He was incontinent last night. Pt. Reported to her this morning at his med pass that he voiding alright. Roseline did request that she see his urine later to ensure that it looks alright. But Pt. Hasn't reported any abdominal pain, fullness or trouble voiding. This nurse informed her that if he does start to experience any of these, scan his bladder and then call this office back. We can then get ahold of the doctor for further orders. No other questions at this time. [facility] 01-13-2024 History of Present illness Narrative Patient came in for a void trial. Patient prepped procedure explained and he agreed to continue. Bag disconnected from catheter 100cc normal sailine inserted. Catheter taken out. Patient urinate 50cc. Explained there may be pain when urinating, blood and burning. Patient tolerated procedure with no difficulties. Keshav Silva CMA Ordering Provider:MD Ro Supervising Provider: MD Ro documented in this encounter [facility] 01-05-2024 History of Present illness Narrative Patient admitted to [facility] 12/26/23-01/02/24 for LOUISA and urinary retention. Patient found to have sepsis 2/2 bacteremia with associated UTI. Patient received IV diuresis (noted to have output of 14L) and IV abx therapy. CBC revealed new onset anemia. Patient evaluated by surgery team who recommended GI work up. Patient underwent EGD/colonoscopy on 01/02/24 which revealed superficial ulcer and gastritis. Patient ordered to take Carafate 1 gm 4x daily, pantoprazole 40 mg BIDWM, Augmentin 500-125 mg Q12H x 10 days, ferrous sulfate 325 mg once daily, furosemide 40 mg once daily, magnesium oxide 400 mg BID, metoprolol tartrate 25 mg BID, and midodrine 10 mg TID at discharge. INR significantly elevated upon admission. Warfarin held and patient received vitamin K 1 mg PO x 1 on 12/27/23. Warfarin was not resumed inpatient d/t planned GI procedures. Warfarin 5 mg once daily ordered to begin at discharge. Aspirin held additional 5 days post-EGD/colon. Patient discharged to [facility] on 01/02/24. Fax sent to facility requesting [facility] receive notification upon patient discharge home. Anticoagulation episode temporarily resolved. Dulce Sommer RP 01/05/24 1537 documented in this encounter [facility] 12-27-2023 Miscellaneous Notes [facility] Mariajose hydronephrosis Called Dr Hussein and connected call documented in this encounter [facility] 12-27-2023 Telephone encounter Note [facility] Mariajose hydronephrosis [facility] 12-27-2023 Telephone encounter Note Called Dr Hussein and connected call [facility] 12-26-2023 Miscellaneous Notes Patient's , Mar, called and said that she cancelled home health's visit today for an INR draw because she has to take patient to the ER for a UTI/Bladder infection. Mar wants to know if ER can draw his INR while they're there. Patient's can be reached at [phone]. Noted. Returned call to Grace. Patient is feeling unwell. Hgb 7.8 on 12/23 with long standing infection. INR in ED would be appreciated given significant elevation despite dose reductions over the past few weeks. Told Grace if patient is admitted we will follow up on discharge. If patient is discharged from ED will call with dosing instruction. Grace v/u and denied further needs. Evelyn Steward, Arun, BCPS December 26, 2023 10:58 AM documented in this encounter [email or web address] 12-26-2023 Telephone encounter Note Patient's , Mar, called and said that she cancelled home health's visit today for an INR draw because she has to take patient to the ER for a UTI/Bladder infection. Mar wants to know if ER can draw his INR while they're there. Patient's can be reached at [phone]. [facility] 12-26-2023 Telephone encounter Note Noted. Returned call to Grace. Patient is feeling unwell. Hgb 7.8 on 12/23 with long standing infection. INR in ED would be appreciated given significant elevation despite dose reductions over the past few weeks. Told Grace if patient is admitted we will follow up on discharge. If patient is discharged from ED will call with dosing instruction. Grace v/u and denied further needs. Evelyn Steward PharmD, BCPS December 26, 2023 10:58 AM [employer] Work Phone: 12-24-2023 Miscellaneous Notes Patient's , Grace, called in and said that Dr. Costello called today to let her know that patient is anemic. Grace would like to know if it's ok to give patient a full protein shake every other day because of this. Grace also stated that Dr. Costello ordered more blood work that they will probably have done this Friday, 12/25, while they're out for the anticoag appointment that is scheduled. Patient's can be reached at [phone]. Returned call to Grace. Discussed Jobst is ok with patient proceeding with protein shakes. Encouraged to also discuss with PCP. Grace v/u and denied further needs. Evelyn Steward PharmD, BCPS December 24, 2023 11:07 AM documented in this encounter [email or web address] 12-24-2023 Telephone encounter Note Patient's , Grace, called in and said that Dr. Costello called today to let her know that patient is anemic. Grace would like to know if it's ok to give patient a full protein shake every other day because of this. Grace also stated that Dr. Costello ordered more blood work that they will probably have done this Friday, 12/25, while they're out for the anticoag appointment that is scheduled. Patient's can be reached at [phone]. [email or web address] 12-24-2023 Telephone encounter Note Returned call to Grace. Discussed Jobst is ok with patient proceeding with protein shakes. Encouraged to also discuss with PCP. Grace v/u and denied further needs. Evelyn Steward PharmD, [facility] December 24, 2023 11:07 AM [email or web address] Work Phone: 12-22-2023 History of Present illness Narrative 15 minute brao-je-eslr follow-up anticoagulation appointment. INR performed in office per protocol. INR 4.0 (goal range: 2.0-3.0). Patient reports: Taking warfarin dosing as documented. Missed or extra doses of warfarin: YES Held x2 and reduced x1 Changes to medications: No Changes to lifestyle (diet / alcohol / smoking / activity): No Recent emergency department visit / hospitalization / health changes / new contraindication to current anticoagulant: YES Significant improvement in edema. Weight has decreased from 281 to 262 Signs/symptoms of bruising/bleeding or clotting or any intolerable adverse events: No Upcoming procedures: No Anticoagulant prescription needed: No Seen referring provider in the last year Duration of therapy reviewed Assessment: INR remains elevated, but has improved. We will hold x1, then decrease weekly dose 15%. Plan: Patient instructed to hold warfarin 12/21, then decrease weekly dose to 5 mg daily. Check INR in 4 day(s). Patient verbalizes understanding of anticoagulant dosing instructions and information discussed. Dosing regimen, counseling, and follow-up appointment were provided to the patient. Patient reminded to call with questions or any medication changes. Patient instructed to seek medical attention if any major bleeding/bleeding that persists or worsens. Evelyn Steward RPH 12/22/23 1318 documented in this encounter [email or web address] History of Present illness Narrative 15 minute vafg-bu-pobl follow-up anticoagulation appointment. INR performed in office per protocol. INR 6.3 (goal range: 2.0-3.0). Patient reports: Taking warfarin dosing as documented. Missed or extra doses of warfarin: No Changes to medications: No Changes to lifestyle (diet / alcohol / smoking / activity): No Recent emergency department visit / hospitalization / health changes / new contraindication to current anticoagulant: YES Fluid is improving. Some edema remains in belly and legs Improving from pneumonia, not 100% Signs/symptoms of bruising/bleeding or clotting or any intolerable adverse events: YES Increased bruising on arms Upcoming procedures: No Anticoagulant prescription needed: No Seen referring provider in the last year Duration of therapy reviewed Assessment: INR remains elevated. Patient declines ANTITANK ASSA[employer] GUNNER draw to confirm INR. INR has been elevated for many weeks at this time. Pneumonia is improving, but patient does not feel 100%. He reports edema is improving, but remains more than baseline. Patient and spouse also report nurse reports ongoing crackles in his lungs. Patient weekly dosing has been reduced 27% over the last month and despite this, INR remains high. Plan: Patient instructed to hold warfarin 12/18 and 12/19. Reduce 12/20 to 2.5 mg. Check INR in 3 day(s). Patient verbalizes understanding of anticoagulant dosing instructions and information discussed. Dosing regimen, counseling, and follow-up appointment were provided to the patient. Patient reminded to call with questions or any medication changes. Patient instructed to seek medical attention if any major bleeding/bleeding that persists or worsens. Evelny Steward RPH 12/19/23 1107 documented in this encounter [facility] [employer] [facility] 12-12-2023 History of Present illness Narrative 15 minute ovxr-kx-nngt follow-up anticoagulation appointment. INR performed in office per protocol. INR 6.0 (goal range: 2.0-3.0). Patient reports: Taking warfarin dosing as documented. Missed or extra doses of warfarin: No Changes to medications: No Changes to lifestyle (diet / alcohol / smoking / activity): YES Starting PT and OT Recent emergency department visit / hospitalization / health changes / new contraindication to current anticoagulant: YES Feeling better overall, but can tell the pneumonia is still hanging around Signs/symptoms of bruising/bleeding or clotting or any intolerable adverse events: YES Bruises are improving Upcoming procedures: No Anticoagulant prescription needed: No Seen referring provider in the last year Duration of therapy reviewed Assessment: INR remains elevated despite hold x1, and reduce additional 9% at last visit - and despite pt reporting at last visit was feeling better and starting therapy and Appetite was returning. Today pt reports still feeling better, but still feeling fatigued and mentions the infxn is still hanging around . So today we will hold x2, and decrease dose by 10% Plan: Patient instructed to hold warfarin 12/11 AND 12/12, then decrease weekly dose to 5 mg M-W-F, 7.5 mg AOD. Check INR in 1 week(s). Patient verbalizes understanding of anticoagulant dosing instructions and information discussed. Dosing regimen, counseling, and follow-up appointment were provided to the patient. Patient reminded to call with questions or any medication changes. Patient instructed to seek medical attention if any major bleeding/bleeding that persists or worsens. Mirza Amaro RPH 12/12/23 1341 documented in this encounter [facility] 12-10-2023 Evaluation + Plan note Associated Problem(s): Benign prostatic hyperplasia with urinary obstruction Almost certainly a production issue. Edema issue. Did have this addressed better to really then ascertain his lower urinary tract symptomatology. Will see him back in 6 months [facility] 12-10-2023 Miscellaneous Notes Associated Problem(s): Benign prostatic hyperplasia with urinary obstruction Almost certainly a production issue. Edema issue. Did have this addressed better to really then ascertain his lower urinary tract symptomatology. Will see him back in 6 months documented in this encounter [facility] 12-10-2023 History of Present illness Narrative Images from the original note were not included. [address] [id number] Patient: Sheeba Adames Date of : 1945 Encounter Date: 12/10/2023 History of Present Illness: The patient is a 78 y.o. male, an established patient, and is here for history of bladder carcinoma. History some urgency and urge incontinence he is on Lasix. He has significant lower extremity edema. Has significant nocturia as well.. Summary of old records: Urinalysis today: No results for input(s): EXTPOCURCO , EXTPOCURCH , EXTPOCAPP , EXTPOCURBS , EXTPOCURBIL , EXTPOCUKET , EXTPOCUSPG , EXTPOCUHGB , EXTPOCUPRO , EXTPOCUURO , EXTPOCULEU , EXTPOCUNIT , EXTPOCUWBC , EXTPOCUBLD , EXTPOCURBC , EXTPOCUCRY , EXTPOCUBAC , EXTPOCUTREP , EXTPOCUPH , EXTPOCULEE in the last 72 hours. Last BUN and creatinine: Lab Results Component Value Date BUN 24 10/01/2023 Lab Results Component Value Date CREATININE 0.92 10/01/2023 Last PSA: Lab Results Component Value Date PSA 6.28 (H) 04/09/2023 PSA 6.49 (H) 07/22/2022 PSA 6.29 (H) 01/07/2022 PSA 6.690 11/30/2021 PSA 7.58 (H) 06/19/2021 No results found for: PROSTATICSP Past Medical, Family, and Social History Update: The following portions of the patient's history were reviewed and updated as appropriate: allergies, current medications, past family history, past medical history, past social history, past surgical history and problem list. Past Medical History: Diagnosis Date Arthritis Atrial fibrillation ([facility]) Coronary artery disease 3 stents 2004 Diabetes mellitus type 2, controlled ([facility]) Hyperlipidemia Hypertension Presence of coronary angioplasty implant and graft Shortness of breath Skin cancer and bladder Stroke ([facility]) TIA (transient ischemic attack) Urinary frequency Visual impairment Past Surgical History: Procedure Laterality Date APPENDECTOMY BACK SURGERY BIOPSY BLADDER N/A 08/27/2023 Performed by Fabián Bishop MD at [facility] CARDIAC CATHETERIZATION CAROTID STENT 3 valves CYSTOSCOPY N/A 08/27/2023 Performed by Fabián Bishop MD at [facility] CYSTOSCOPY N/A 08/19/2022 Performed by Fabián Bishop MD at [facility] CYSTOSCOPY N/A 11/12/2021 Performed by Fabián Bishop MD at [facility] CYSTOSCOPY N/A 05/14/2021 Performed by Fabián Bishop MD at [facility] CYSTOSCOPY N/A 05/03/2020 Performed by Fabián Bishop MD at [facility] CYSTOSCOPY N/A 12/13/2019 Performed by Fabián Bishop MD at [facility] CYSTOSCOPY N/A 03/25/2018 Performed by Fabián Bishop MD at [facility] CYSTOSCOPY N/A 08/04/2017 Performed by Fabián Bishop MD at [facility] CYSTOSCOPY DILATATION URETHRAL N/A 08/27/2023 Performed by Fabián Bishop MD at [facility] CYSTOSCOPY DILATATION URETHRAL N/A 03/03/2023 Performed by Fabián Bishop MD at [facility] CYSTOSCOPY DILATATION URETHRAL N/A 11/12/2021 Performed by Fabián Bishop MD at [facility] CYSTOSCOPY DILATATION URETHRAL N/A 05/14/2021 Performed by Fabián Bishop MD at [facility] CYSTOSCOPY DILATATION URETHRAL N/A 12/13/2019 Performed by Fabián Bishop MD at [facility] CYSTOSCOPY DILATATION URETHRAL Bilateral 09/23/2018 Performed by Fabián Bishop MD at [facility] CYSTOSCOPY DILATATION URETHRAL BULBAR N/A 08/19/2022 Performed by Fabián Bishop MD at [facility] CYSTOSCOPY RETROGRADE PYELOGRAM Bilateral 03/03/2023 Performed by Fabián Bishop MD at [facility] CYSTOSCOPY RETROGRADE PYELOGRAM Bilateral 11/15/2020 Performed by Fabián Bishop MD at [facility] CYSTOSCOPY RETROGRADE PYELOGRAM Bilateral 04/21/2019 Performed by Fabián Bishop MD at [facility] CYSTOSCOPY RETROGRADE PYELOGRAM Bilateral 01/13/2017 Performed by Fabián Bishop MD at [facility] CYSTOSCOPY W/ INTERNAL URETHROTOMY 08/14/2015 stent removal CYSTOSCOPY WITH DILATATION N/A 05/03/2020 Performed by Fabián Bishop MD at [facility] EXTERNAL EAR SURGERY left ear, cancer removal EYE SURGERY HERNIA REPAIR february 2010 and 2012 LASIK TONSILLECTOMY TOTAL KNEE ARTHROPLASTY TRANSURETHRAL RESECTION OF BLADDER TUMOR 07/05/2015 TRANSURETHRAL RESECTION OF PROSTATE Family History Problem Relation Age of Onset Heart failure Father No Known Problems Mother Current Outpatient Medications Medication Sig Dispense Refill amLODIPine (NORVASC) 10 mg tablet Take 1 tablet (10 mg total) by mouth in the morning. 90 tablet 3 aspirin 81 mg Take 1 tablet (81 mg total) by mouth in the morning. 30 tablet 11 atorvastatin (LIPITOR) 80 mg tablet Take 1 tablet (80 mg total) by mouth in the morning. 90 tablet 3 carvediloL (COREG) 25 mg tablet Take 1 tablet (25 mg total) by mouth in the morning and 1 tablet (25 mg total) before bedtime. 180 tablet 3 hydroCHLOROthiazide (HYDRODIURIL) 25 mg tablet Take 1 tablet (25 mg total) by mouth daily. 90 tablet 3 lisinopriL (PRINIVIL,ZESTRIL) 40 mg tablet Take 1 tablet (40 mg total) by mouth in the morning. 90 tablet 3 metformin HCl (METFORMIN ORAL) Take 500 mg by mouth daily with breakfast. mirabegron (MYRBETRIQ) 25 mg tablet extended release 24 hr Take 1 tablet (25 mg total) by mouth in the morning. 30 tablet 0 nitroglycerin (NITROSTAT) 0.[address] 1 tablet (0.4 mg total) under the tongue every 5 (five) minutes as needed for chest pain (for chest pain). 25 tablet 3 PAROXETINE HCL ORAL 20 mg daily. warfarin (COUMADIN) 5 mg tablet TAKE ONE AND ONE HALF TO TWO TABLETS BY MOUTH DAILY DIRECTED 180 tablet 3 No current facility-administered medications for this visit. (All medications reviewed and updated by provider since last office visit or hospitalization) Allergies: Celecoxib, Niacin, and Prasugrel Tobacco History: Social History Tobacco Use Smoking Status Former Smokeless Tobacco Never (If patient a smoker, smoking cessation counseling offered) Social History: Social History Substance and Sexual Activity Alcohol Use No Review of Systems: General: Positive for chills Cardiovascular: Negative for chest pain and shortness of breath. Gastrointestinal: Negative for constipation, diarrhea, nausea, and vomitting. -per HPI Physical Exam: BP 133/77 Pulse 99 Ht 182.9 cm (6') Wt 124.7 kg (275 lb) BMI 37.30 kg/m Uses a walker. Nontoxic. Significant bilateral lower extremity edema. Pitting. Has penile scrotal edema as well. Even has some edema in lower abdomen. Assessment and Plan: Sheeba was seen today for follow-up. Diagnoses and all orders for this visit: Urinary incontinence, unspecified type - Measure post void residual Benign prostatic hyperplasia with urinary obstruction Malignant neoplasm of overlapping sites of bladder (CMS-HCC) Problem List High Bladder cancer (CMS-HCC) Overview ==== 12/10/2023 ==== will do a cysto [...] biopsy by both ureteral orifi. Pathology sent [facility]. Possible very early low-grade recurrence fish [...] -biopsy fall 2014 initially here= carcinoma situ.. [facility] diagnosed as dysplasia. -TURBT with stent left ureteral orifice. Area previous biopsy low-grade carcinoma final pathology of TUR was dysplasia. Stent removed September 2015. Benign prostatic hyperplasia with urinary obstruction Overview ==== 12/10/2023 ==== recently started Lasix. Has [...] tissue. Could be obstructing. Check patient's symptomatology. Current Assessment & Plan Almost certainly a production issue. Edema issue. Did have this addressed better to really then ascertain his lower urinary tract symptomatology. Will see him back in 6 months Follow-up: Return clinic about 6 months Setup OR. Cancel his February 01 appointment. Fabián Bishop MD I, Fabián Bishop MD, was responsible for the contents of the history of present illness, physical examination and assessment and plan This note was created with the assistance of a speech recognition program. While intending to generate a timely document that accurately reflects the content of the visit, no guarantee can be provided that every grammatical or spelling mistake has been or will be identified or corrected. Thank you for your understanding. documented in this encounter [facility] 12-03-2023 History of Present illness Narrative 15 minute wdkj-dr-qshj follow-up anticoagulation appointment. INR performed in office per protocol. INR 4.2 (goal range: 2.0-3.0). Patient reports: Taking warfarin dosing as documented. Missed or extra doses of warfarin: No Changes to medications: No Changes to lifestyle (diet / alcohol / smoking / activity): YES Starting PT and OT Recent emergency department visit / hospitalization / health changes / new contraindication to current anticoagulant: YES Feeling better overall Signs/symptoms of bruising/bleeding or clotting or any intolerable adverse events: YES Bruises are improving Upcoming procedures: No Anticoagulant prescription needed: No Seen referring provider in the last year Duration of therapy reviewed Assessment: INR remains elevated despite 8% dose reduction. We will hold x1, then reduce additional 9%. Patient is feeling better and starting therapy. Appeite is returning. Will continue to follow closely. Plan: Patient instructed to hold warfarin 12/02, then decrease weekly dose to 5 mg Sat and 7.5 mg AOD. Check INR in 1 week(s). Patient verbalizes understanding of anticoagulant dosing instructions and information discussed. Dosing regimen, counseling, and follow-up appointment were provided to the patient. Patient reminded to call with questions or any medication changes. Patient instructed to seek medical attention if any major bleeding/bleeding that persists or worsens. Evelyn Steward RPH 12/03/23 0905 documented in this encounter [facility] 11-27-2023 History of Present illness Narrative 15 minute jsxf-gg-mqjt follow-up anticoagulation appointment. INR performed in office per protocol. INR 3.6 (goal range: 2.0-3.0). Patient reports: Taking warfarin dosing as documented. Missed or extra doses of warfarin: YES Held x3 days as instructed Changes to medications: No Changes to lifestyle (diet / alcohol / smoking / activity): YES Appetite is improving Recent emergency department visit / hospitalization / health changes / new contraindication to current anticoagulant: YES Patient reports he is feeling better and his energy is returning Signs/symptoms of bruising/bleeding or clotting or any intolerable adverse events: No Upcoming procedures: No Anticoagulant prescription needed: No Seen referring provider in the last year Duration of therapy reviewed Assessment: INR is trending down following holding x3. We will resume with 2.5 mg x1, then 8% dose reduction. Plan: Patient instructed to decrease to warfarin 2.5 mg /, then decrease weekly dose to 10 mg Tue and 7.5 mg AOD. Check INR in 1 week(s). Patient verbalizes understanding of anticoagulant dosing instructions and information discussed. Dosing regimen, counseling, and follow-up appointment were provided to the patient. Patient reminded to call with questions or any medication changes. Patient instructed to seek medical attention if any major bleeding/bleeding that persists or worsens. Evelyn Steward RPH 11/27/23 1440 documented in this encounter [employer] 11-24-2023 History of Present illness Narrative 15 minute eldf-qg-zvck follow-up anticoagulation appointment. INR performed in office per protocol and is >8. Sent to lab for ANTITANK ASSAULT GUNNER INR 9.0 (goal range: 2.0-3.0). Patient reports: Taking warfarin dosing as documented. Missed or extra doses of warfarin: No Changes to medications: YES Started albuterol, guaifenesin, and Augmentin Changes to lifestyle (diet / alcohol / smoking / activity): YES Appetite has been significantly decreased with little PO intake Recent emergency department visit / hospitalization / health changes / new contraindication to current anticoagulant: YES Patient has pneumonia-- being treated w/ABX Patient and spouse report increased edema in the right leg Signs/symptoms of bruising/bleeding or clotting or any intolerable adverse events: YES Significant bruising noted. Patient fell in bathroom. Has been evaluated by PCP. Reminded if he ever hits his head to come right to the ER Upcoming procedures: No Anticoagulant prescription needed: No Seen referring provider in the last year Duration of therapy reviewed Assessment: INR is signficantly elevated due to decrease PO intake and illness. We will hold warfarin until next INR check. Plan: Patient instructed to hold warfarin. Check INR in 3 day(s). Patient verbalizes understanding of anticoagulant dosing instructions and information discussed. Dosing regimen, counseling, and follow-up appointment were provided to the patient. Patient reminded to call with questions or any medication changes. Patient instructed to seek medical attention if any major bleeding/bleeding that persists or worsens. Evelyn Steward [facility] 11/24/23 1602 Received call from lab-- INR 9.0 Evelyn Steward PharmD, SO[facility] November 24, 2023 3:18 PM Evelyn Steward [facility] 11/24/23 1602 Called patient's spouse, Grace with INR result. Grace v/u. She is encouraging patient to eat and has Boost drinks on hand for him as well. Reviewed going to the ED for any bleeding concerns or falls with hitting head. Grace v/u Evelyn Steward PharmD, [facility] November 24, 2023 4:01 PM Evelyn Steward [facility] 11/24/23 1602 documented in this encounter [facility] 11-21-2023 History of Present illness Narrative Images from the original note were not included. Wound Care Progress Note Patient: Sheeba Adames Date of : 1945 Chief Compliant:bilateral leg swelling with a wound, follow up SUBJECTIVE/HPI: Sheeba is a 78 y.o. male who presents to [facility] for evaluation of 1 ulcer(s) on the right medial lower leg. Patient established with wound clinic on 11/07/2023. Current daily wound care includes: foam and UNNA boot to the right, medium compression Tubigrip on the left. Reports red discoloration of scalp. Measurable wound changes: resolved 0.5 cm decrease in RLE calf circumference Patient accompanied by:spouse, patient arrives in wheelchair Nutritional screen shows patient does take in three servings of protein per day. Patient does deny fever, chills, sweats, or other signs of infection. Prescribed antibiotics: Completed Keflex as prescribed. Today's reported Blood Sugar: 202 Lab Results Component Value Date HGBA1C 6.6 (H) 01/26/2019 HGBA1C 6.3 01/19/2018 Tobacco use: former smoker Contributing comorbid conditions:atrial fibrillation treated with coumadin, History of CVA, Type 2 diabetes, bilatreal knee replacements , likely contributing to leg edema Patient Active Problem List Diagnosis Cerebrovascular disease Coronary artery disease involving [place] coronary artery of [place] heart without angina pectoris Hyperlipidemia Mineral metabolism disorder Elevated PSA Bladder cancer ([facility]) Presence of coronary angioplasty implant and graft Severe obesity (BMI 35.0-39.9) with comorbidity ([facility]) Benign prostatic hyperplasia with urinary obstruction Urinary tract infection without hematuria Paroxysmal atrial fibrillation ([facility]) Primary hypertension 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 Bulbous urethral stricture Actinic keratosis Cerebral infarction ([facility]) History of myocardial infarction Iron deficiency anemia Neck pain Nephrolithiasis Neurologic disorder associated with diabetes mellitus ([facility]) 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 ([facility]) Peripheral edema Type 2 diabetes mellitus without complication ([facility]) Venous insufficiency (chronic) (peripheral) Venous stasis ulcer of left lower leg with edema of left lower leg ([facility]) Lymphedema Past Medical History: Diagnosis Date Arthritis Atrial fibrillation ([facility]) Coronary artery disease 3 stents 2004 Diabetes mellitus type 2, controlled ([facility]) Hyperlipidemia Hypertension Presence of coronary angioplasty implant and graft Shortness of breath Skin cancer and bladder Stroke ([facility]) TIA (transient ischemic attack) Urinary frequency Visual impairment Past Surgical History: Procedure Laterality Date APPENDECTOMY BACK SURGERY BIOPSY BLADDER N/A 08/27/2023 Performed by Fabián Bishop MD at [facility] CARDIAC CATHETERIZATION CAROTID STENT 3 valves CYSTOSCOPY N/A 08/27/2023 Performed by Fabián Bishop MD at [facility] CYSTOSCOPY N/A 08/19/2022 Performed by Fabián Bishop MD at [facility] CYSTOSCOPY N/A 11/12/2021 Performed by Fabián Bishop MD at [facility] CYSTOSCOPY N/A 05/14/2021 Performed by Fabián Bishop MD at [facility] CYSTOSCOPY N/A 05/03/2020 Performed by Fabián Bishop MD at [facility] CYSTOSCOPY N/A 12/13/2019 Performed by Fabián Bishop MD at [facility] CYSTOSCOPY N/A 03/25/2018 Performed by Fabián Bishop MD at [facility] CYSTOSCOPY N/A 08/04/2017 Performed by Fabián Bishop MD at [facility] CYSTOSCOPY DILATATION URETHRAL N/A 08/27/2023 Performed by Fabián Bishop MD at [facility] CYSTOSCOPY DILATATION URETHRAL N/A 03/03/2023 Performed by Fabián Bishop MD at [facility] CYSTOSCOPY DILATATION URETHRAL N/A 11/12/2021 Performed by Fabián Bishop MD at [facility] CYSTOSCOPY DILATATION URETHRAL N/A 05/14/2021 Performed by Fabián Bishop MD at [facility] CYSTOSCOPY DILATATION URETHRAL N/A 12/13/2019 Performed by Fabián Bishop MD at [facility] CYSTOSCOPY DILATATION URETHRAL Bilateral 09/23/2018 Performed by Fabián Bishop MD at [facility] CYSTOSCOPY DILATATION URETHRAL BULBAR N/A 08/19/2022 Performed by Fabián Bishop MD at [facility] CYSTOSCOPY RETROGRADE PYELOGRAM Bilateral 03/03/2023 Performed by Fabián Bishop MD at [facility] CYSTOSCOPY RETROGRADE PYELOGRAM Bilateral 11/15/2020 Performed by Fabián Bishop MD at [facility] CYSTOSCOPY RETROGRADE PYELOGRAM Bilateral 04/21/2019 Performed by Fabián Bishop MD at [facility] CYSTOSCOPY RETROGRADE PYELOGRAM Bilateral 01/13/2017 Performed by Fabián Bishop MD at [facility] CYSTOSCOPY W/ INTERNAL URETHROTOMY 08/14/2015 stent removal CYSTOSCOPY WITH DILATATION N/A 05/03/2020 Performed by Fabián Bishop MD at [facility] EXTERNAL EAR SURGERY left ear, cancer removal EYE SURGERY HERNIA REPAIR february 2010 and 2012 LASIK TONSILLECTOMY TOTAL KNEE ARTHROPLASTY TRANSURETHRAL RESECTION OF BLADDER TUMOR 07/05/2015 TRANSURETHRAL RESECTION OF PROSTATE Current Outpatient Medications Medication Sig Dispense Refill amLODIPine (NORVASC) 10 mg tablet Take 1 tablet (10 mg total) by mouth in the morning. 90 tablet 3 aspirin 81 mg Take 1 tablet (81 mg total) by mouth in the morning. 30 tablet 11 atorvastatin (LIPITOR) 80 mg tablet Take 1 tablet (80 mg total) by mouth in the morning. 90 tablet 3 carvediloL (COREG) 25 mg tablet Take 1 tablet (25 mg total) by mouth in the morning and 1 tablet (25 mg total) before bedtime. 180 tablet 3 hydroCHLOROthiazide (HYDRODIURIL) 25 mg tablet Take 1 tablet (25 mg total) by mouth daily. 90 tablet 3 lisinopriL (PRINIVIL,ZESTRIL) 40 mg tablet Take 1 tablet (40 mg total) by mouth in the morning. 90 tablet 3 metformin HCl (METFORMIN ORAL) Take 500 mg by mouth daily with breakfast. mirabegron (MYRBETRIQ) 25 mg tablet extended release 24 hr Take 1 tablet (25 mg total) by mouth in the morning. 30 tablet 0 nitroglycerin (NITROSTAT) 0.[address] 1 tablet (0.4 mg total) under the tongue every 5 (five) minutes as needed for chest pain (for chest pain). 25 tablet 3 PAROXETINE HCL ORAL 20 mg daily. warfarin (COUMADIN) 5 mg tablet TAKE ONE AND ONE HALF TO TWO TABLETS BY MOUTH DAILY DIRECTED 180 tablet 3 No current facility-administered medications for this visit. Allergies Allergen Reactions Celecoxib Dizziness Niacin Rash Prasugrel Other (See Comments) and Rash The following portions of the patient's history were reviewed and updated as appropriate: allergies, current medications, past family history, past medical history, past social history, past surgical history, problem list, and medication reconciliation was completed including current medication and post discharge medication. Pain Scale: Pain Scale 0/10: 0 Review of Systems Constitutional: Negative. Negative for activity change, appetite change and fever. HENT: Negative. Negative for trouble swallowing. Respiratory: Positive for shortness of breath. Negative for cough and wheezing. Cardiovascular: Positive for leg swelling. Negative for chest pain and palpitations. Gastrointestinal: Negative. Negative for abdominal distention, nausea and vomiting. Genitourinary: Positive for hematuria. Negative for dysuria, frequency and urgency. Musculoskeletal: Positive for arthralgias, gait problem, neck pain and neck stiffness. Skin: Positive for color change and wound. Neurological: Positive for weakness (right sided post CVA). Negative for dizziness, numbness and headaches. Objective: Vitals: 11/21/23 0954 BP: 120/60 Pulse: 88 Temp: 36.6 C (97.8 F) Physical Exam Vitals and nursing note reviewed. Constitutional: Appearance: He is well-developed. HENT: Head: Normocephalic and atraumatic. Cardiovascular: Rate and Rhythm: Normal rate. Rhythm irregular. Heart sounds: Normal heart sounds. No murmur heard. No gallop. Comments: Bilateral DP/PT Doppler signals biphasic, moderate Bilateral minimal soft pitting edema of lower extremity Bilateral hemosiderin staining of lower extremity Diminished hair growth Pulmonary: Effort: Pulmonary effort is normal. No respiratory distress. Breath sounds: Normal breath sounds. No wheezing. Musculoskeletal: General: Normal range of motion. Cervical back: Normal range of motion. Skin: General: Skin is warm and dry. Neurological: Mental Status: He is alert and oriented to person, place, and time. Wound Assessment Assessment/Plan/Education: 1. Venous stasis ulcer of right lower leg with edema of right lower leg (CMS-HCC) 2. Lymphedema Avoid prolonged leg dependency. Wash legs and feet every day, apply moisturizing lotion at night, avoid lotion between the toes. Raise feet above the level of the heart 10-15 min several times daily. Follow a low sodium diet. Wear compression stockings as prescribed. Instructed patient to purchase OTC compression stockings 18-20 mmHg. Calf pump exercises daily. 2 weeks of compression, elevation and exercise, chronic lymphedema remains 3. 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 Short term goal: medical compliance detention goal: wound closure Patient and Other: spouse verbalize ability to perform wound care. Follow up in wound clinic PRN Instructed to contact wound clinic, PCP or ER should symptoms worsen. The patient was taught to watch for S/S of infection (redness, pus, pain, increased swelling, chills or fever) and to call the PCP or wound care clinic if such occurs. The patient was educated on offloading the area by avoiding direct pressure to the wound bed. Education as well as the pathophysiology of the disease process was provided on infection, edema, necrotic tissue and its relationship to nonhealing wounds. Education was also provided on treatment plan. Patient verbalized understanding. Total time spent was 15 minutes: Preparing to see the patient (e.g., review of tests) Obtaining and/or reviewing separately obtained history Performing a medically appropriate examination and/or evaluation Counseling and educating the patient/family/caregiver Ordering medications, tests, or procedures Documenting clinical information in the electronic or other health record - LAUREANO YAO 11/21/23 10:51 AM Savannah Sanchez APRN, TIERA, CWS, COCN [facility]: [phone] LAUREANO Yao 11/07/23 0407 LAUREANO Yao 11/12/23 1058 LAUREANO Yao 11/21/23 1100 documented in this encounter [facility] 11-21-2023 Instructions Janene Joseph RN - 11/21/2023 9:40 AM EDT Wound Management Treatment Plan Wound Location(s): Healed Apply tubigrip to both legs EVERY day. Apply in the morning. May remove at bedtime. ACTIVITY: Avoid direct pressure to wound(s) at all times NUTRITION: High protein diet SKIN CARE: Moisturize all dry and intact skin SWELLING CONTROL: Left leg apply double layer tubi daily take off at night. Elevate legs 3 times a day for 15 minutes above your heart. Right leg unna boot applied ITEMS TO FOLLOW UP ON: Length Width Depth Wound 11/07/23 1 Calf Right;Medial-Wound Length (cm): 0 cm Wound 11/07/23 1 Calf Right;Medial-Wound Width (cm): 0 cm Wound 11/07/23 1 Calf Right;Medial-Wound Depth (cm): 0 cm Wound drainage Type Description scant Serosanginous yellow documented in this encounter [facility] 11-18-2023 Miscellaneous Notes Last OV 07/29/23 Last BMP 10/01/23.slm documented in this encounter [facility] 11-18-2023 Telephone encounter Note Last OV 07/29/23 Last BMP 10/01/23.slm [facility] 11-18-2023 Miscellaneous Notes Called patient requesting to move appt from 11/20. RP will be unavailable that day. Would prefer to see patient 11/18 if available or early next week due to previously elevated INR. Requested patient return call to [facility] PharmD, [facility] November 18, 2023 9:30 AM documented in this encounter [facility] 11-18-2023 Telephone encounter Note Called patient requesting to move appt from 11/20. RP will be unavailable that day. Would prefer to see patient 11/18 if available or early next week due to previously elevated INR. Requested patient return call to [facility] PharmD, [facility] November 18, 2023 9:30 AM [facility] Work Phone: 11-12-2023 Evaluation + Plan note Associated Problem(s): Benign prostatic hyperplasia with urinary obstruction He will monitor his blood pressure while [...] improve and his urinary symptoms may follow. [facility] 11-12-2023 Miscellaneous Notes Associated Problem(s): Benign prostatic hyperplasia with urinary obstruction He will monitor his blood pressure while [...] improve and his urinary symptoms may follow. documented in this encounter [email or web address] 11-12-2023 History of Present illness Narrative Images from the original note were not included. [address] [id number] Patient: Sheeba Adames Date of : 1945 Encounter Date: 11/12/2023 History of Present Illness: Chief Complaint: Follow up bladder leaking and lack on control The patient is a 78 y.o. male, an established patient, and is here for incontinence. He has a history of bladder cancer and was last in the office 10/08/23. Since his last TURBT, he has had issues with incontinence and enuresis. He no longer has any gross hematuria. He denies any dysuria. He goes through 1-2 briefs a day. He went to the lab earlier today to leave a urine specimen for culture. Results are pending. Postvoid residual as measured by bladder scan is 0 cc Urinalysis today: No results for input(s): EXTPOCURCO , EXTPOCURCH , EXTPOCAPP , EXTPOCURBS , EXTPOCURBIL , EXTPOCUKET , EXTPOCUSPG , EXTPOCUHGB , EXTPOCUPRO , EXTPOCUURO , EXTPOCULEU , EXTPOCUNIT , EXTPOCUWBC , EXTPOCUBLD , EXTPOCURBC , EXTPOCUCRY , EXTPOCUBAC , EXTPOCUTREP , EXTPOCUPH , EXTPOCULEE in the last 72 hours. Last BUN and creatinine: Lab Results Component Value Date BUN 24 10/01/2023 Lab Results Component Value Date CREATININE 0.92 10/01/2023 Last PSA: Lab Results Component Value Date PSA 6.28 (H) 04/09/2023 PSA 6.49 (H) 07/22/2022 PSA 6.29 (H) 01/07/2022 PSA 6.690 11/30/2021 PSA 7.58 (H) 06/19/2021 No results found for: PROSTATICSP Past Medical, Family, and Social History Update: The following portions of the patient's history were reviewed and updated as appropriate: allergies, current medications, past family history, past medical history, past social history, past surgical history and problem list. Past Medical History: Diagnosis Date Arthritis Atrial fibrillation ([facility]) Coronary artery disease 3 stents 2004 Diabetes mellitus type 2, controlled ([facility]) Hyperlipidemia Hypertension Presence of coronary angioplasty implant and graft Shortness of breath Skin cancer and bladder Stroke ([facility]) TIA (transient ischemic attack) Urinary frequency Visual impairment Past Surgical History: Procedure Laterality Date APPENDECTOMY BACK SURGERY BIOPSY BLADDER N/A 08/27/2023 Performed by Fabián Bishop MD at [facility] CARDIAC CATHETERIZATION CAROTID STENT 3 valves CYSTOSCOPY N/A 08/27/2023 Performed by Fabián Bishop MD at [facility] CYSTOSCOPY N/A 08/19/2022 Performed by Fabián Bishop MD at [facility] CYSTOSCOPY N/A 11/12/2021 Performed by Fabián Bishop MD at [facility] CYSTOSCOPY N/A 05/14/2021 Performed by Fabián Bishop MD at [facility] CYSTOSCOPY N/A 05/03/2020 Performed by Fabián Bishop MD at [facility] CYSTOSCOPY N/A 12/13/2019 Performed by Fabián Bishop MD at [facility] CYSTOSCOPY N/A 03/25/2018 Performed by Fabián Bishop MD at [facility] CYSTOSCOPY N/A 08/04/2017 Performed by Fabián Bishop MD at [facility] CYSTOSCOPY DILATATION URETHRAL N/A 08/27/2023 Performed by Fabián Bishop MD at [facility] CYSTOSCOPY DILATATION URETHRAL N/A 03/03/2023 Performed by Fabián Bishop MD at [facility] CYSTOSCOPY DILATATION URETHRAL N/A 11/12/2021 Performed by Fabián Bishop MD at [facility] CYSTOSCOPY DILATATION URETHRAL N/A 05/14/2021 Performed by Fabián Bishop MD at [facility] CYSTOSCOPY DILATATION URETHRAL N/A 12/13/2019 Performed by Fabián Bishop MD at [facility] CYSTOSCOPY DILATATION URETHRAL Bilateral 09/23/2018 Performed by Fabián Bishop MD at [facility] CYSTOSCOPY DILATATION URETHRAL BULBAR N/A 08/19/2022 Performed by Fabián Bishop MD at [facility] CYSTOSCOPY RETROGRADE PYELOGRAM Bilateral 03/03/2023 Performed by Fabián Bishop MD at [facility] CYSTOSCOPY RETROGRADE PYELOGRAM Bilateral 11/15/2020 Performed by Fabián Bishop MD at [facility] CYSTOSCOPY RETROGRADE PYELOGRAM Bilateral 04/21/2019 Performed by Fabián Bishop MD at [facility] CYSTOSCOPY RETROGRADE PYELOGRAM Bilateral 01/13/2017 Performed by Fabián Bishop MD at [facility] CYSTOSCOPY W/ INTERNAL URETHROTOMY 08/14/2015 stent removal CYSTOSCOPY WITH DILATATION N/A 05/03/2020 Performed by Fabián Bishop MD at [facility] EXTERNAL EAR SURGERY left ear, cancer removal EYE SURGERY HERNIA REPAIR february 2010 and 2012 LASIK TONSILLECTOMY TOTAL KNEE ARTHROPLASTY TRANSURETHRAL RESECTION OF BLADDER TUMOR 07/05/2015 TRANSURETHRAL RESECTION OF PROSTATE Family History Problem Relation Age of Onset Heart failure Father No Known Problems Mother Current Outpatient Medications Medication Sig Dispense Refill amLODIPine (NORVASC) 10 mg tablet Take 1 tablet (10 mg total) by mouth in the morning. 90 tablet 3 aspirin 81 mg Take 1 tablet (81 mg total) by mouth in the morning. 30 tablet 11 atorvastatin (LIPITOR) 80 mg tablet Take 1 tablet (80 mg total) by mouth in the morning. 90 tablet 3 carvediloL (COREG) 25 mg tablet Take 1 tablet (25 mg total) by mouth in the morning and 1 tablet (25 mg total) before bedtime. 180 tablet 3 CEPHalexin (KEFLEX) 500 mg capsule Take 1 capsule (500 mg total) by mouth in the morning and 1 capsule (500 mg total) before bedtime. furosemide (LASIX) 20 mg tablet Take 1 tablet (20 mg total) by mouth daily. 90 tablet 3 hydroCHLOROthiazide (HYDRODIURIL) 25 mg tablet Take 1 tablet (25 mg total) by mouth daily. 90 tablet 0 lisinopriL (PRINIVIL,ZESTRIL) 40 mg tablet Take 1 tablet (40 mg total) by mouth in the morning. 90 tablet 3 metformin HCl (METFORMIN ORAL) Take 500 mg by mouth daily with breakfast. nitroglycerin (NITROSTAT) 0.[address] 1 tablet (0.4 mg total) under the tongue every 5 (five) minutes as needed for chest pain (for chest pain). 25 tablet 3 PAROXETINE HCL ORAL 20 mg daily. warfarin (COUMADIN) 5 mg tablet TAKE ONE AND ONE HALF TO TWO TABLETS BY MOUTH DAILY DIRECTED 180 tablet 3 mirabegron (MYRBETRIQ) 25 mg tablet extended release 24 hr Take 1 tablet (25 mg total) by mouth in the morning. 30 tablet 0 No current facility-administered medications for this visit. (All medications reviewed and updated by provider since last office visit or hospitalization) Allergies: Celecoxib, Niacin, and Prasugrel Tobacco History: Social History Tobacco Use Smoking Status Former Smokeless Tobacco Never (If patient a smoker, smoking cessation counseling offered) Social History: Social History Substance and Sexual Activity Alcohol Use No Review of Systems: General: Negative for chills and fever. Cardiovascular: Negative for chest pain and shortness of breath. Gastrointestinal: Negative for constipation, diarrhea, nausea, and vomitting. -per HPI Physical Exam: BP 149/72 Pulse 67 Ht 182.9 cm (6') Wt 124.7 kg (275 lb) BMI 37.30 kg/m Constitutional: He appears well-developed. No distress. Pulmonary/Chest: increased effort with exertion Neurological: He is alert and oriented for age. Gait: slow and cautious Nursing note and vitals reviewed. Assessment and Plan: Sheeba was seen today for follow-up. Diagnoses and all orders for this visit: Benign prostatic hyperplasia with urinary obstruction Other orders - mirabegron (MYRBETRIQ) 25 mg tablet extended release 24 hr; Take 1 tablet (25 mg total) by mouth in the morning. Problem List Genitourinary Benign prostatic hyperplasia with urinary obstruction - Primary Overview ====11/12/23==== frequency and incontinence since his last [...] tissue. Could be obstructing. Check patient's symptomatology. Current Assessment & Plan He will monitor his blood pressure while [...] improve and his urinary symptoms may follow. Follow-up: Me or Dr. Bishop in one month SHABANA NINO This note was created with the assistance of a speech recognition program. While intending to generate a timely document that accurately reflects the content of the visit, no guarantee can be provided that every grammatical or spelling mistake has been or will be identified or corrected. Thank you for your understanding. SHABANA Nino 11/12/23 6858 SHABANA Nino 11/12/23 4597 documented in this encounter [facility] 11-12-2023 Instructions SHABANA Nino - 11/12/2023 4:15 PM EDT We will call you when the culture results are final. To see if we can decrease your frequency, urgency, and incontinence, let us have you try taking Myrbetriq. Take 1 pill once a day. Check with the pharmacy to make sure it does not interact with any of your other medications. I do not think it should interact with your Coumadin, but it does not hurt to check with the INR clinic as well. Monitor your blood pressure while on Myrbetriq and discontinue if elevated. I am starting you on the lower dose. Let me know if you need to try the higher dose before your follow-up. If you like the medication, but it is not covered by your insurance, we can discuss other options at your follow-up. Discontinue the medication if you have any difficulty voiding Nitish: [phone] (Ext [id number]) documented in this encounter [email or web address] 11-12-2023 History of Present illness Narrative Images from the original note were not included. Wound Care Progress Note Patient: Sheeba Adames Date of : 1945 Chief Compliant:bilateral leg swelling with a wound, follow up SUBJECTIVE/HPI: Sheeba is a 78 y.o. male who presents to [facility] for evaluation of 1 ulcer(s) on the left medial lower leg. Patient established with wound clinic on 11/07/2023. Current daily wound care includes : alginate and medium compression Tubigrip. Dressing changed daily by patient's . A new blister is forming proximal to current wound. Measurable wound changes: decrease in wound measurements 3.0 cm decrease in RLE calf circumference 1.5 cm decrease in left lower leg calf circumference. Patient accompanied by:spouse, patient arrives in wheelchair Nutritional screen shows patient does take in three servings of protein per day. Patient does deny fever, chills, sweats, or other signs of infection. Prescribed antibiotics: Continues taking Keflex as prescribed. Today's reported Blood Sugar: 147 Lab Results Component Value Date HGBA1C 6.6 (H) 01/26/2019 HGBA1C 6.3 01/19/2018 Tobacco use: former smoker Contributing comorbid conditions:atrial fibrillation treated with coumadin, History of CVA, Type 2 diabetes, bilatreal knee replacements 2014,1997, likely contributing to leg edema Patient Active Problem List Diagnosis Cerebrovascular disease Coronary artery disease involving [place] coronary artery of [place] heart without angina pectoris Hyperlipidemia Mineral metabolism disorder Elevated PSA Bladder cancer ([facility]) Presence of coronary angioplasty implant and graft Severe obesity (BMI 35.0-39.9) with comorbidity ([facility]) Benign prostatic hyperplasia with urinary obstruction Urinary tract infection without hematuria Paroxysmal atrial fibrillation ([facility]) Primary hypertension detention (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 Bulbous urethral stricture Actinic keratosis Cerebral infarction ([facility]) History of myocardial infarction Iron deficiency anemia Neck pain Nephrolithiasis Neurologic disorder associated with diabetes mellitus ([facility]) 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 ([facility]) Peripheral edema Type 2 diabetes mellitus without complication ([facility]) Venous insufficiency (chronic) (peripheral) Venous stasis ulcer of left lower leg with edema of left lower leg ([facility] Lymphedema Past Medical History: Diagnosis Date Arthritis Atrial fibrillation ([facility]) Coronary artery disease 3 stents 2004 Diabetes mellitus type 2, controlled ([facility]) Hyperlipidemia Hypertension Presence of coronary angioplasty implant and graft Shortness of breath Skin cancer and bladder Stroke ([facility]) TIA (transient ischemic attack) Urinary frequency Visual impairment Past Surgical History: Procedure Laterality Date APPENDECTOMY BACK SURGERY BIOPSY BLADDER N/A 08/27/2023 Performed by Fabián Bishop MD at [facility] CARDIAC CATHETERIZATION CAROTID STENT 3 valves CYSTOSCOPY N/A 08/27/2023 Performed by Fabián Bishop MD at [facility] CYSTOSCOPY N/A 08/19/2022 Performed by Fabián Bishop MD at [facility] CYSTOSCOPY N/A 11/12/2021 Performed by Fabián Bishop MD at [facility] CYSTOSCOPY N/A 05/14/2021 Performed by Fabián Bishop MD at [facility] CYSTOSCOPY N/A 05/03/2020 Performed by Fabián Bishop MD at [facility] CYSTOSCOPY N/A 12/13/2019 Performed by Fabián Bishop MD at [facility] CYSTOSCOPY N/A 03/25/2018 Performed by Fabián Bishop MD at [facility] CYSTOSCOPY N/A 08/04/2017 Performed by Fabián Bishop MD at [facility] CYSTOSCOPY DILATATION URETHRAL N/A 08/27/2023 Performed by Fabián Bishop MD at [facility] CYSTOSCOPY DILATATION URETHRAL N/A 03/03/2023 Performed by Fabián Bishop MD at [facility] CYSTOSCOPY DILATATION URETHRAL N/A 11/12/2021 Performed by Fabián Bishop MD at [facility] CYSTOSCOPY DILATATION URETHRAL N/A 05/14/2021 Performed by Fabián Bishop MD at [facility] CYSTOSCOPY DILATATION URETHRAL N/A 12/13/2019 Performed by Fabián Bishop MD at [facility] CYSTOSCOPY DILATATION URETHRAL Bilateral 09/23/2018 Performed by Fabián Bishop MD at [facility] CYSTOSCOPY DILATATION URETHRAL BULBAR N/A 08/19/2022 Performed by Fabián Bishop MD at [facility] CYSTOSCOPY RETROGRADE PYELOGRAM Bilateral 03/03/2023 Performed by Fabián Bishop MD at [facility] CYSTOSCOPY RETROGRADE PYELOGRAM Bilateral 11/15/2020 Performed by Fabián Bishop MD at [facility] CYSTOSCOPY RETROGRADE PYELOGRAM Bilateral 04/21/2019 Performed by Fabián Bishop MD at [facility] CYSTOSCOPY RETROGRADE PYELOGRAM Bilateral 01/13/2017 Performed by Fabián Bishop MD at [facility] CYSTOSCOPY W/ INTERNAL URETHROTOMY 08/14/2015 stent removal CYSTOSCOPY WITH DILATATION N/A 05/03/2020 Performed by Fabián Bishop MD at [facility] EXTERNAL EAR SURGERY left ear, cancer removal EYE SURGERY HERNIA REPAIR february 2010 and 2012 LASIK TONSILLECTOMY TOTAL KNEE ARTHROPLASTY TRANSURETHRAL RESECTION OF BLADDER TUMOR 07/05/2015 TRANSURETHRAL RESECTION OF PROSTATE Current Outpatient Medications Medication Sig Dispense Refill amLODIPine (NORVASC) 10 mg tablet Take 1 tablet (10 mg total) by mouth in the morning. 90 tablet 3 aspirin 81 mg Take 1 tablet (81 mg total) by mouth in the morning. 30 tablet 11 atorvastatin (LIPITOR) 80 mg tablet Take 1 tablet (80 mg total) by mouth in the morning. 90 tablet 3 carvediloL (COREG) 25 mg tablet Take 1 tablet (25 mg total) by mouth in the morning and 1 tablet (25 mg total) before bedtime. 180 tablet 3 CEPHalexin (KEFLEX) 500 mg capsule Take 1 capsule (500 mg total) by mouth in the morning and 1 capsule (500 mg total) before bedtime. furosemide (LASIX) 20 mg tablet Take 1 tablet (20 mg total) by mouth daily. 90 tablet 3 hydroCHLOROthiazide (HYDRODIURIL) 25 mg tablet Take 1 tablet (25 mg total) by mouth daily. 90 tablet 0 lisinopriL (PRINIVIL,ZESTRIL) 40 mg tablet Take 1 tablet (40 mg total) by mouth in the morning. 90 tablet 3 metformin HCl (METFORMIN ORAL) Take 500 mg by mouth daily with breakfast. nitroglycerin (NITROSTAT) 0.[address] 1 tablet (0.4 mg total) under the tongue every 5 (five) minutes as needed for chest pain (for chest pain). 25 tablet 3 PAROXETINE HCL ORAL 20 mg daily. warfarin (COUMADIN) 5 mg tablet TAKE ONE AND ONE HALF TO TWO TABLETS BY MOUTH DAILY DIRECTED 180 tablet 3 No current facility-administered medications for this visit. Allergies Allergen Reactions Celecoxib Dizziness Niacin Rash Prasugrel Other (See Comments) and Rash The following portions of the patient's history were reviewed and updated as appropriate: allergies, current medications, past family history, past medical history, past social history, past surgical history, problem list, and medication reconciliation was completed including current medication and post discharge medication. Pain Scale: Pain Scale 0/10: 0 Review of Systems Constitutional: Negative. Negative for activity change, appetite change and fever. HENT: Negative. Negative for trouble swallowing. Respiratory: Positive for shortness of breath. Negative for cough and wheezing. Cardiovascular: Positive for leg swelling. Negative for chest pain and palpitations. Gastrointestinal: Negative. Negative for abdominal distention, nausea and vomiting. Genitourinary: Positive for hematuria. Negative for dysuria, frequency and urgency. Musculoskeletal: Positive for arthralgias, gait problem, neck pain and neck stiffness. Skin: Positive for color change and wound. Neurological: Positive for weakness (right sided post CVA). Negative for dizziness, numbness and headaches. Objective: Vitals: 11/12/23 1007 BP: 144/83 Resp: 16 Temp: 36.3 C (97.3 F) Physical Exam Vitals and nursing note reviewed. Constitutional: Appearance: He is well-developed. HENT: Head: Normocephalic and atraumatic. Cardiovascular: Rate and Rhythm: Normal rate. Rhythm irregular. Heart sounds: Normal heart sounds. No murmur heard. No gallop. Comments: Bilateral DP/PT Doppler signals biphasic, moderate Bilateral 2+ soft pitting edema of lower extremity Bilateral hemosiderin staining of lower extremity Diminished hair growth Pulmonary: Effort: Pulmonary effort is normal. No respiratory distress. Breath sounds: Normal breath sounds. No wheezing. Musculoskeletal: General: Normal range of motion. Cervical back: Normal range of motion. Skin: General: Skin is warm and dry. Neurological: Mental Status: He is alert and oriented to person, place, and time. Wound Assessment Wound 11/07/23 1 Calf Right;Medial (Active) Wound Image 11/12/23 1021 Site Assessment Moist;Oark;Yellow 11/12/23 1021 Lucia-wound Assessment Blanchable erythema;Oark 11/12/23 1021 Wound Length (cm) 3.5 cm 11/12/23 1021 Wound Width (cm) 5.5 cm 11/12/23 1021 Wound Surface Area (cm^2) 19.25 cm^2 11/12/23 1021 Wound Depth (cm) 0.1 cm 11/12/23 1021 Wound Volume (cm^3) 1.925 cm^3 11/12/23 1021 Change in Wound Size % 17.2 11/12/23 1021 Drainage Description Serosanguineous;Yellow 11/12/23 1021 Drainage Amount Scant 11/12/23 1021 Treatments Cleansed with;Soap and water;Soak with;Vashe/Hypochlorous Acid 11/12/23 1021 Debridement Performed? N 11/12/23 1021 Dressing Type Foam;Vaseline gauze;Unna Boot 11/12/23 1050 Dressing Changed New 11/12/23 1050 Dressing Status Clean;Dry;Intact 11/12/23 1050 Wound Bed Granulation (%) 75% to 100% 11/12/23 1021 Wound Bed Slough (%) 25% to 50% 11/12/23 1021 Assessment/Plan/Education: 1. Venous stasis ulcer of left lower leg with edema of left lower leg ([facility]) Cover wound with foam dressing UNNA boot to right leg Medium compression Tubigrip to left leg. Continue ATB as prescribed. 2. Bilateral lower extremity edema 3. Lymphedema Avoid prolonged leg dependency. Wash legs and feet every day, apply moisturizing lotion at night, avoid lotion between the toes. Raise feet above the level of the heart 10-15 min several times daily. Follow a low sodium diet. Wear compression stockings as prescribed. Medium compression Tubigrip left leg UNNA boot to right leg. Calf pump exercises daily. 1 weeks of compression, elevation and exercise, chronic lymphedema remains Patient and spouse instructed in Other: edema care to left, right, and leg. Short term goal: medical compliance detention goal: wound closure Patient and Other: spouse verbalize ability to perform wound care. Follow up in wound clinic in 1 week, prefers to be seen 11/21/2023. Instructed to contact wound clinic, PCP or ER should symptoms worsen. The patient was taught to watch for S/S of infection (redness, pus, pain, increased swelling, chills or fever) and to call the PCP or wound care clinic if such occurs. The patient was educated on offloading the area by avoiding direct pressure to the wound bed. Education as well as the pathophysiology of the disease process was provided on infection, edema, necrotic tissue and its relationship to nonhealing wounds. Education was also provided on treatment plan. Patient verbalized understanding. Total time spent was 19 minutes: Preparing to see the patient (e.g., review of tests) Obtaining and/or reviewing separately obtained history Performing a medically appropriate examination and/or evaluation Counseling and educating the patient/family/caregiver Ordering medications, tests, or procedures Documenting clinical information in the electronic or other health record - LAUREANO YAO 11/12/23 10:52 AM Savannah Sanchez APRN, TIERA, CWS, LU[facility]: [phone] LAUREANO Yao 11/07/23 0923 LAUREANO Yao 11/12/23 1058 documented in this encounter [facility] 11-12-2023 Instructions Kelly Zaman RN - 11/12/2023 10:20 AM EDT Wound Management Treatment Plan Wound Location(s): Right medial calf HOW TO CARE FOR YOUR WOUND The following should be performed Daily and as needed. Will change unna boot weekly in clinic STEP 1: Cleanse wound with Soap and water, rinse well, and pat dry. Irrigate or rinse wound with NO IRRIGATION REQUIRED. STEP 2: Cover wound with foam STEP 3: Secure with unna boot DO NOT GET UNNA BOOT WET ACTIVITY: Avoid direct pressure to wound(s) at all times NUTRITION: High protein diet SKIN CARE: Moisturize all dry and intact skin SWELLING CONTROL: Left leg apply double layer tubi daily take off at night. Elevate legs 3 times a day for 15 minutes above your heart. Right leg unna boot applied ITEMS TO FOLLOW UP ON: Length Width Depth Wound 11/07/23 1 Calf Right;Medial-Wound Length (cm): 3.5 cm Wound 11/07/23 1 Calf Right;Medial-Wound Width (cm): 5.5 cm Wound 11/07/23 1 Calf Right;Medial-Wound Depth (cm): 0.1 cm Wound drainage Type Description scant Serosanginous yellow documented in this encounter [facility] 11-11-2023 Miscellaneous Notes Patients called in on behalf of her stating patient is having real bad incontinence, he has had this since his cystoscopy in August and he now has no control over his bladder he is leaking and urinating all over. Every time he stands up it just flows out [id number] Please order urine for culture have patient see mid level provider. Detailed VM left order placed documented in this encounter [facility] 11-11-2023 Telephone encounter Note Patients called in on behalf of her stating patient is having real bad incontinence, he has had this since his cystoscopy in August and he now has no control over his bladder he is leaking and urinating all over. Every time he stands up it just flows out [id number] [facility] 11-11-2023 Telephone encounter Note Please order urine for culture have patient see mid level provider. [facility] 11-11-2023 Telephone encounter Note Detailed VM left order placed [facility] 11-07-2023 History of Present illness Narrative Images from the original note were not included. Wound Care Progress Note Patient: Sheeba Adames Date of : 1945 Chief Compliant:bilateral leg swelling with a wound New patient evaluation SUBJECTIVE/HPI: Sheeba is a 78 y.o. male who presents to [facility] for evaluation of 1 ulcer(s) on the left medial lower leg. Patient established with wound clinic on 11/07/2023. Current daily wound care includes : OTC antibiotic ointment and gauze. Measurable wound changes: new wound evaluation Patient accompanied by:spouse, patient arrives in wheelchair Nutritional screen shows patient does take in three servings of protein per day. Patient does deny fever, chills, sweats, or other signs of infection. Prescribed antibiotics: Keflex Today's reported Blood Sugar:did not check today, states it has been going up Lab Results Component Value Date HGBA1C 6.6 (H) 01/26/2019 HGBA1C 6.3 01/19/2018 Tobacco use: former smoker Contributing comorbid conditions:atrial fibrillation treated with coumadin, History of CVA, Type 2 diabetes, bilatreal knee replacements 2014,1997, likely contributing to leg edema Patient Active Problem List Diagnosis Cerebrovascular disease Coronary artery disease involving [place] coronary artery of [place] heart without angina pectoris Hyperlipidemia Mineral metabolism disorder Elevated PSA Bladder cancer ([facility]) Presence of coronary angioplasty implant and graft Severe obesity (BMI 35.0-39.9) with comorbidity ([facility]) Benign prostatic hyperplasia with urinary obstruction Urinary tract infection without hematuria Paroxysmal atrial fibrillation ([facility]) Primary hypertension 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 Bulbous urethral stricture Actinic keratosis Cerebral infarction ([facility]) History of myocardial infarction Iron deficiency anemia Neck pain Nephrolithiasis Neurologic disorder associated with diabetes mellitus ([facility]) 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 ([facility]) Peripheral edema Type 2 diabetes mellitus without complication ([facility] Venous insufficiency (chronic) (peripheral) Venous stasis ulcer of left lower leg with edema of left lower leg ([facility]) Past Medical History: Diagnosis Date Arthritis Atrial fibrillation ([facility]) Coronary artery disease 3 stents 2004 Diabetes mellitus type 2, controlled ([facility] Hyperlipidemia Hypertension Presence of coronary angioplasty implant and graft Shortness of breath Skin cancer and bladder Stroke ([facility] TIA (transient ischemic attack) Urinary frequency Visual impairment Past Surgical History: Procedure Laterality Date APPENDECTOMY BACK SURGERY BIOPSY BLADDER N/A 08/27/2023 Performed by Fabián Bishop MD at [facility] CARDIAC CATHETERIZATION CAROTID STENT 3 valves CYSTOSCOPY N/A 08/27/2023 Performed by Fabián Bishop MD at [facility] CYSTOSCOPY N/A 08/19/2022 Performed by Fabián Bihsop MD at [facility] CYSTOSCOPY N/A 11/12/2021 Performed by Fabián Bishop MD at [facility] CYSTOSCOPY N/A 05/14/2021 Performed by Fabián Bishop MD at [facility] CYSTOSCOPY N/A 05/03/2020 Performed by Fabián Bishop MD at [facility] CYSTOSCOPY N/A 12/13/2019 Performed by Fabián Bishop MD at [facility] CYSTOSCOPY N/A 03/25/2018 Performed by Fabián Bishop MD at [facility] CYSTOSCOPY N/A 08/04/2017 Performed by Fabián Bishop MD at [facility] CYSTOSCOPY DILATATION URETHRAL N/A 08/27/2023 Performed by Fabián Bishop MD at [facility] CYSTOSCOPY DILATATION URETHRAL N/A 03/03/2023 Performed by Fabián Bishop MD at [facility] CYSTOSCOPY DILATATION URETHRAL N/A 11/12/2021 Performed by Fabián Bishop MD at [facility] CYSTOSCOPY DILATATION URETHRAL N/A 05/14/2021 Performed by Fabián Bishop MD at [facility] CYSTOSCOPY DILATATION URETHRAL N/A 12/13/2019 Performed by Fabián Bishop MD at [facility] CYSTOSCOPY DILATATION URETHRAL Bilateral 09/23/2018 Performed by Fabián Bishop MD at [facility] CYSTOSCOPY DILATATION URETHRAL BULBAR N/A 08/19/2022 Performed by Fabián Bishop MD at [facility] CYSTOSCOPY RETROGRADE PYELOGRAM Bilateral 03/03/2023 Performed by Fabián Bishop MD at [facility] CYSTOSCOPY RETROGRADE PYELOGRAM Bilateral 11/15/2020 Performed by Fabián Bishop MD at [facility] CYSTOSCOPY RETROGRADE PYELOGRAM Bilateral 04/21/2019 Performed by Fabián Bishop MD at [facility] CYSTOSCOPY RETROGRADE PYELOGRAM Bilateral 01/13/2017 Performed by Fabián Bishop MD at [facility] CYSTOSCOPY W/ INTERNAL URETHROTOMY 08/14/2015 stent removal CYSTOSCOPY WITH DILATATION N/A 05/03/2020 Performed by Fabián Bishop MD at [facility] EXTERNAL EAR SURGERY left ear, cancer removal EYE SURGERY HERNIA REPAIR february 2010 and 2012 LASIK TONSILLECTOMY TOTAL KNEE ARTHROPLASTY TRANSURETHRAL RESECTION OF BLADDER TUMOR 07/05/2015 TRANSURETHRAL RESECTION OF PROSTATE Current Outpatient Medications Medication Sig Dispense Refill amLODIPine (NORVASC) 10 mg tablet Take 1 tablet (10 mg total) by mouth in the morning. 90 tablet 3 aspirin 81 mg Take 1 tablet (81 mg total) by mouth in the morning. 30 tablet 11 atorvastatin (LIPITOR) 80 mg tablet Take 1 tablet (80 mg total) by mouth in the morning. 90 tablet 3 carvediloL (COREG) 25 mg tablet Take 1 tablet (25 mg total) by mouth in the morning and 1 tablet (25 mg total) before bedtime. 180 tablet 3 CEPHalexin (KEFLEX) 500 mg capsule Take 1 capsule (500 mg total) by mouth in the morning and 1 capsule (500 mg total) before bedtime. furosemide (LASIX) 20 mg tablet Take 1 tablet (20 mg total) by mouth daily. 90 tablet 3 hydroCHLOROthiazide (HYDRODIURIL) 25 mg tablet Take 1 tablet (25 mg total) by mouth daily. 90 tablet 0 lisinopriL (PRINIVIL,ZESTRIL) 40 mg tablet Take 1 tablet (40 mg total) by mouth in the morning. 90 tablet 3 metformin HCl (METFORMIN ORAL) Take 500 mg by mouth daily with breakfast. nitroglycerin (NITROSTAT) 0.[address] 1 tablet (0.4 mg total) under the tongue every 5 (five) minutes as needed for chest pain (for chest pain). 25 tablet 3 PAROXETINE HCL ORAL 20 mg daily. warfarin (COUMADIN) 5 mg tablet TAKE ONE AND ONE HALF TO TWO TABLETS BY MOUTH DAILY DIRECTED 180 tablet 3 No current facility-administered medications for this visit. Allergies Allergen Reactions Celecoxib Dizziness Niacin Rash Prasugrel Other (See Comments) and Rash The following portions of the patient's history were reviewed and updated as appropriate: allergies, current medications, past family history, past medical history, past social history, past surgical history, problem list, and medication reconciliation was completed including current medication and post discharge medication. Pain Scale: Pain Scale 0/10: 0 Review of Systems Constitutional: Negative. Negative for activity change, appetite change and fever. HENT: Negative. Negative for trouble swallowing. Respiratory: Positive for shortness of breath. Negative for cough and wheezing. Cardiovascular: Positive for leg swelling. Negative for chest pain and palpitations. Gastrointestinal: Negative. Negative for abdominal distention, nausea and vomiting. Genitourinary: Positive for hematuria. Negative for dysuria, frequency and urgency. Musculoskeletal: Positive for arthralgias, gait problem, neck pain and neck stiffness. Skin: Positive for color change and wound. Neurological: Positive for weakness (right sided post CVA). Negative for dizziness, numbness and headaches. Objective: Vitals: 11/07/23 0841 BP: 120/77 Pulse: 74 Resp: 16 Temp: 36.5 C (97.7 F) Physical Exam Vitals and nursing note reviewed. Constitutional: Appearance: He is well-developed. HENT: Head: Normocephalic and atraumatic. Cardiovascular: Rate and Rhythm: Normal rate. Rhythm irregular. Heart sounds: Normal heart sounds. No murmur heard. No gallop. Comments: Bilateral DP/PT Doppler signals biphasic, moderate Bilateral 3+ soft pitting edema of lower extremity Bilateral hemosiderin staining of lower extremity Diminished hair growth Pulmonary: Effort: Pulmonary effort is normal. No respiratory distress. Breath sounds: Normal breath sounds. No wheezing. Musculoskeletal: General: Normal range of motion. Cervical back: Normal range of motion. Skin: General: Skin is warm and dry. Neurological: Mental Status: He is alert and oriented to person, place, and time. Wound Assessment Wound 11/07/23 1 Calf Right;Medial (Active) Wound Image 11/07/23 0854 Site Assessment Hypergranulation;Moist;Red;White 11/07/23853 Lucia-wound Assessment Blanchable erythema;Maceration;Oark 11/07/23853 Wound Length (cm) 3.1 cm 11/07/23853 Wound Width (cm) 7.5 cm 11/07/23853 Wound Surface Area (cm^2) 23.25 cm^2 11/07/23853 Wound Depth (cm) 0.1 cm 11/07/23853 Wound Volume (cm^3) 2.325 cm^3 11/07/23853 Drainage Description Serosanguineous;Yellow 11/07/23853 Drainage Amount Scant 11/07/23853 Treatments Cleansed with;Vashe/Hypochlorous Acid 11/07/23853 Debridement Performed? N 11/07/23853 Wound Bed Granulation (%) 100% 11/07/23853 Assessment/Plan/Education: 1. Venous stasis ulcer of left lower leg with edema of left lower leg ([facility]-H[facility]) Wash daily mild soap and water Calcium alginate, cut to fit wound bed Secure with roll gauze Change daily Continue ATB as prescribed 2. Bilateral lower extremity edema 3. Lymphedema Avoid prolonged leg dependency. Wash legs and feet every day, apply moisturizing lotion at night, avoid lotion between the toes. Raise feet above the level of the heart 10-15 min several times daily. Follow a low sodium diet. Wear compression stockings as prescribed. Medium compression Tubigrip Calf pump exercises daily. 0 weeks of compression, elevation and exercise, chronic lymphedema remains Patient and spouse instructed in Other: edema care to left, right, and leg. Short term goal: medical compliance transport pilot goal: wound closure Patient and Other: spouse verbalize ability to perform wound care. Follow up in wound clinic in 5 days Instructed to contact wound clinic, PCP or ER should symptoms worsen. The patient was taught to watch for S/S of infection (redness, pus, pain, increased swelling, chills or fever) and to call the PCP or wound care clinic if such occurs. The patient was educated on offloading the area by avoiding direct pressure to the wound bed. Education as well as the pathophysiology of the disease process was provided on infection, edema, necrotic tissue and its relationship to nonhealing wounds. Education was also provided on treatment plan. Patient verbalized understanding. Total time spent was 23 minutes: Preparing to see the patient (e.g., review of tests) Obtaining and/or reviewing separately obtained history Performing a medically appropriate examination and/or evaluation Counseling and educating the patient/family/caregiver Ordering medications, tests, or procedures Documenting clinical information in the electronic or other health record - LAUREANO YAO 11/07/23 9:17 AM Savannah Sanchez APRN, TIERA, CWS, LU[facility]: [phone] LAUREANO Yao 11/07/23 0928 documented in this encounter [facility] 11-07-2023 Instructions Kelly Zaman RN - 11/07/2023 8:40 AM EDT Wound Management Treatment Plan Wound Location(s): Right medial calf HOW TO CARE FOR YOUR WOUND The following should be performed Daily and as needed. STEP 1: Cleanse wound with Soap and water, rinse well, and pat dry. Irrigate or rinse wound with NO IRRIGATION REQUIRED. STEP 2: Cover wound with alginate, then Rolled gauze. STEP 3: Secure dressings with Tubi/Medigrip ACTIVITY: Avoid direct pressure to wound(s) at all times NUTRITION: High protein diet SKIN CARE: Moisturize all dry and intact skin SWELLING CONTROL: Tubigrip compression stockinette low to be worn first thing in the morning and removed at bedtime. right and left leg. Elevate legs 3 times a day for 15 minutes above your heart ITEMS TO FOLLOW UP ON: Length Width Depth Wound 11/07/23 1 Calf Right;Medial-Wound Length (cm): 3.1 cm Wound 11/07/23 1 Calf Right;Medial-Wound Width (cm): 7.5 cm Wound 11/07/23 1 Calf Right;Medial-Wound Depth (cm): 0.1 cm Wound drainage Type Description scant Serosanginous yellow documented in this encounter [facility] 11-04-2023 History of Present illness Narrative 15 minute qies-pa-nlrg follow-up anticoagulation appointment. INR performed in office per protocol. INR 4.0 (goal range: 2.0-3.0). Patient reports: Taking warfarin dosing as documented. Missed or extra doses of warfarin: No Changes to medications: YES Patient is currently on Kefelx- started 10/30 for 10 days Changes to lifestyle (diet / alcohol / smoking / activity): YES Appetite has resolved Recent emergency department visit / hospitalization / health changes / new contraindication to current anticoagulant: YES Wound on leg; currently on antibiotics and will be seeing wound care Friday Signs/symptoms of bruising/bleeding or clotting or any intolerable adverse events: YES Blood in urine has resolved Upcoming procedures: No Anticoagulant prescription needed: No Seen referring provider in the last year Duration of therapy reviewed Assessment: INR remains elevated secondary to infectin. We will hold x1, then reduce weekly dose by 4% Plan: Patient instructed to hold warfarin 11/03, then decrease weekly dose to 10 mg Sun/Tue/Th and 7.5 mg AOD. Check INR in 2 week(s). Patient verbalizes understanding of anticoagulant dosing instructions and information discussed. Dosing regimen, counseling, and follow-up appointment were provided to the patient. Patient reminded to call with questions or any medication changes. Patient instructed to seek medical attention if any major bleeding/bleeding that persists or worsens. Evelyn Steward RPH 11/04/23 1305 documented in this encounter [facility] [employer] [facility] 10-21-2023 History of Present illness Narrative 15 minute wkxi-hj-jwpk follow-up anticoagulation appointment. INR performed in office per protocol. INR 3.7 (goal range: 2.0-3.0). Patient reports: Taking warfarin dosing as documented. Missed or extra doses of warfarin: No Changes to medications: No Changes to lifestyle (diet / alcohol / smoking / activity): YES Decrease appetite Recent emergency department visit / hospitalization / health changes / new contraindication to current anticoagulant: YES Blood clot in the bladder; working with Dr. Bishop Patient reports soft stools Signs/symptoms of bruising/bleeding or clotting or any intolerable adverse events: YES Increased bruising on arms-- this is from dog Increased bruising on leg- patient fell in the yard Blood in urine has been variable- more sabi now Upcoming procedures: No Anticoagulant prescription needed: No Seen referring provider in the last year Duration of therapy reviewed Assessment: INR is elevated likely due to decreased appetite and loose bowels. We will reduce x1, then resume usual dose. Plan: Patient instructed to decrease to warfarin 5 mg 10/20, then resume 7.5 mg MWF and 10mg AOD. Check INR in 2 week(s). Patient verbalizes understanding of anticoagulant dosing instructions and information discussed. Dosing regimen, counseling, and follow-up appointment were provided to the patient. Patient reminded to call with questions or any medication changes. Patient instructed to seek medical attention if any major bleeding/bleeding that persists or worsens. Evelyn Steward RPH 10/21/23 1138 documented in this encounter [facility] 10-08-2023 Evaluation + Plan note Associated Problem(s): Bladder cancer ([facility]) Have the patient in December or January give urine studies for fish and cytology. If these are still concerning then he would end up with a cystoscopy under anesthesia potential ureteroscopy. If these are all normalize then will just set him up for A surveillance cystoscopy [facility] 10-08-2023 Miscellaneous Notes Associated Problem(s): Bladder cancer ([facility]) Have the patient in December or January give urine studies for fish and cytology. If these are still concerning then he would end up with a cystoscopy under anesthesia potential ureteroscopy. If these are all normalize then will just set him up for A surveillance cystoscopy documented in this encounter [facility] 10-08-2023 History of Present illness Narrative Images from the original note were not included. [address] [place] [address] [facility] [id number] Patient: Sheeba Adames Date of : 1945 Encounter Date: 10/08/2023 History of Present Illness: The patient is a 78 y.o. male, an established patient, and is here for history bladder tumor. Bladder cancer. Status post TURBT. Findings as below. Did have postop hematuria. Discussed with patient and his . He is improved in that clinical course. He had some left flank pain that is much better. He had no stone or hydro based on his most recent CT.. Urinalysis today: No results for input(s): EXTPOCURCO , EXTPOCURCH , EXTPOCAPP , EXTPOCURBS , EXTPOCURBIL , EXTPOCUKET , EXTPOCUSPG , EXTPOCUHGB , EXTPOCUPRO , EXTPOCUURO , EXTPOCULEU , EXTPOCUNIT , EXTPOCUWBC , EXTPOCUBLD , EXTPOCURBC , EXTPOCUCRY , EXTPOCUBAC , EXTPOCUTREP , EXTPOCUPH in the last 72 hours. Last BUN and creatinine: Lab Results Component Value Date BUN 24 10/01/2023 Lab Results Component Value Date CREATININE 0.92 10/01/2023 Last PSA: Lab Results Component Value Date PSA 6.28 (H) 04/09/2023 PSA 6.49 (H) 07/22/2022 PSA 6.29 (H) 01/07/2022 PSA 6.690 11/30/2021 PSA 7.58 (H) 06/19/2021 No results found for: PROSTATICSP Past Medical, Family, and Social History Update: The following portions of the patient's history were reviewed and updated as appropriate: allergies, current medications, past family history, past medical history, past social history, past surgical history and problem list. Past Medical History: Diagnosis Date Arthritis Atrial fibrillation ([facility]) Coronary artery disease 3 stents 2004 Diabetes mellitus type 2, controlled ([facility]) Hyperlipidemia Hypertension Presence of coronary angioplasty implant and graft Shortness of breath Skin cancer and bladder Stroke ([facility]) TIA (transient ischemic attack) Urinary frequency Visual impairment Past Surgical History: Procedure Laterality Date APPENDECTOMY BACK SURGERY BIOPSY BLADDER N/A 08/27/2023 Performed by Fabián Bishop MD at [facility] CARDIAC CATHETERIZATION CAROTID STENT 3 valves CYSTOSCOPY N/A 08/27/2023 Performed by Fabián Bishop MD at [facility] CYSTOSCOPY N/A 08/19/2022 Performed by Fabián Bishop MD at [facility] CYSTOSCOPY N/A 11/12/2021 Performed by Fabián Bishop MD at [facility] CYSTOSCOPY N/A 05/14/2021 Performed by Fabián Bishop MD at [facility] CYSTOSCOPY N/A 05/03/2020 Performed by Fabián Bishop MD at [facility] CYSTOSCOPY N/A 12/13/2019 Performed by Fabián Bishop MD at [facility] CYSTOSCOPY N/A 03/25/2018 Performed by Fabián Bishop MD at [facility] CYSTOSCOPY N/A 08/04/2017 Performed by Fabián Bishop MD at [facility] CYSTOSCOPY DILATATION URETHRAL N/A 08/27/2023 Performed by Fabián Bishop MD at [facility] CYSTOSCOPY DILATATION URETHRAL N/A 03/03/2023 Performed by Fabián Bishop MD at [facility] CYSTOSCOPY DILATATION URETHRAL N/A 11/12/2021 Performed by Fabián Bishop MD at [facility] CYSTOSCOPY DILATATION URETHRAL N/A 05/14/2021 Performed by Fabián Bishop MD at [facility] CYSTOSCOPY DILATATION URETHRAL N/A 12/13/2019 Performed by Fabián Bishop MD at [facility] CYSTOSCOPY DILATATION URETHRAL Bilateral 09/23/2018 Performed by Fabián Bishop MD at [facility] CYSTOSCOPY DILATATION URETHRAL BULBAR N/A 08/19/2022 Performed by Fabián Bishop MD at [facility] CYSTOSCOPY RETROGRADE PYELOGRAM Bilateral 03/03/2023 Performed by Fabián Bishop MD at [facility] CYSTOSCOPY RETROGRADE PYELOGRAM Bilateral 11/15/2020 Performed by Fabián Bishop MD at [facility] CYSTOSCOPY RETROGRADE PYELOGRAM Bilateral 04/21/2019 Performed by Fabián Bishop MD at [facility] CYSTOSCOPY RETROGRADE PYELOGRAM Bilateral 01/13/2017 Performed by Fabián Bishop MD at [facility] CYSTOSCOPY W/ INTERNAL URETHROTOMY 08/14/2015 stent removal CYSTOSCOPY WITH DILATATION N/A 05/03/2020 Performed by Fabián Bishop MD at [facility] EXTERNAL EAR SURGERY left ear, cancer removal EYE SURGERY HERNIA REPAIR february 2010 and 2012 LASIK TONSILLECTOMY TOTAL KNEE ARTHROPLASTY TRANSURETHRAL RESECTION OF BLADDER TUMOR 07/05/2015 TRANSURETHRAL RESECTION OF PROSTATE Family History Problem Relation Age of Onset Heart failure Father No Known Problems Mother Current Outpatient Medications Medication Sig Dispense Refill furosemide (LASIX) 20 mg tablet Take 1 tablet (20 mg total) by mouth daily. 90 tablet 3 nitroglycerin (NITROSTAT) 0.[address] 1 tablet (0.4 mg total) under the tongue every 5 (five) minutes as needed for chest pain (for chest pain). 25 tablet 3 amLODIPine (NORVASC) 10 mg tablet Take 1 tablet (10 mg total) by mouth in the morning. 90 tablet 3 amoxicillin (AMOXIL) 500 mg capsule Take 1 capsule (500 mg total) by mouth once. PRN dental procedures aspirin 81 mg Take 1 tablet (81 mg total) by mouth in the morning. 30 tablet 11 atorvastatin (LIPITOR) 80 mg tablet Take 1 tablet (80 mg total) by mouth in the morning. 90 tablet 3 carvediloL (COREG) 25 mg tablet Take 1 tablet (25 mg total) by mouth in the morning and 1 tablet (25 mg total) before bedtime. 180 tablet 3 hydroCHLOROthiazide (HYDRODIURIL) 25 mg tablet Take 1 tablet (25 mg total) by mouth daily. 90 tablet 0 lisinopriL (PRINIVIL,ZESTRIL) 40 mg tablet Take 1 tablet (40 mg total) by mouth in the morning. 90 tablet 3 metformin HCl (METFORMIN ORAL) Take 500 mg by mouth daily with breakfast. PAROXETINE HCL ORAL 20 mg daily. warfarin (COUMADIN) 5 mg tablet TAKE ONE AND ONE HALF TO TWO TABLETS BY MOUTH DAILY DIRECTED 180 tablet 3 No current facility-administered medications for this visit. (All medications reviewed and updated by provider since last office visit or hospitalization) Allergies: Celecoxib, Niacin, and Prasugrel Tobacco History: Social History Tobacco Use Smoking Status Former Smokeless Tobacco Never (If patient a smoker, smoking cessation counseling offered) Social History: Social History Substance and Sexual Activity Alcohol Use No Review of Systems: General: Negative for chills and fever. Cardiovascular: Negative for chest pain and shortness of breath. Gastrointestinal: Positive for constipation Physical Exam: BP (!) 145/7 Pulse 66 Ht 182.9 cm (6') Wt 117.9 kg (260 lb) BMI 35.26 kg/m General Alert., Cooperative. Not in acute distress. Non-toxic. Orientation - Oriented X3. Head and Neck Normocephalic, atraumatic with no lesions. No abnormal movements. Trachea - midline. Integumentary Normal coloration of skin. Skin Moisture - normal skin moisture. Chest and Lung Exam Quiet, even and easy respiratory effort with no use of accessory muscles. Neurologic NON-focal Assessment and Plan: Sheeba was seen today for follow-up. Diagnoses and all orders for this visit: Malignant neoplasm of overlapping sites of bladder (CMS-HCC) - Cytology; Future - Urovysion for bladder; Future Problem List High Bladder cancer ([facility]) - Primary Overview ==== 10/08/2023 ==== ### status post TURBT. [...] biopsy by both ureteral orifi. Pathology sent [facility]. Possible very early low-grade recurrence fish [...] -biopsy fall 2014 initially here= carcinoma situ.. [facility] diagnosed as dysplasia. -TURBT with stent left ureteral orifice. Area previous biopsy low-grade carcinoma final pathology of TUR was dysplasia. Stent removed September 2015. Current Assessment & Plan Have the patient in December or January give urine studies for fish and cytology. If these are still concerning then he would end up with a cystoscopy under anesthesia potential ureteroscopy. If these are all normalize then will just set him up for A surveillance cystoscopy Relevant Orders Cytology Urovysion for bladder Follow-up: Prior to the patient seeing me in his January appointment please get a fish and cytology. Fabián Bishop MD Independent visualization of tracing, image or specimen was made: CT scan. No left-sided stone or hydronephrosis. Equal to or greater than 3 distinct studies were ordered and or reviewed during this encounter reviewed urine culture from ER visit as well as creatinine. Ordered fish and cytology. This note was created with the assistance of a speech recognition program. While intending to generate a timely document that accurately reflects the content of the visit, no guarantee can be provided that every grammatical or spelling mistake has been or will be identified or corrected. Thank you for your understanding. documented in this encounter [facility] 10-02-2023 Miscellaneous Notes error documented in this encounter [facility] 10-02-2023 Telephone encounter Note error [facility] 10-01-2023 Miscellaneous Notes Hermila [phone] from [facility] called on behalf of [employer]ORETTA Ge. Pt dx bladder cancer & kidney stones. Pt is in RM10. Please advise Thanks. Dr. Bishop - [place] called today with concerns about renal stone and bladder mass. Pt has been having gross hematuria since his scope last month. CT showed a large hematoma/clot in his bladder and non-obstructing stone. No evidence of infection, he is able to void, Hb stable. No pain. He was requesting discharge. He is scheduled to see you 10/07, but wondering if you want to set him up for clot evac instead. documented in this encounter [facility] 10-01-2023 Telephone encounter Note Hermila [phone] from [place] [facility] called on behalf of [employer] Ge. Pt dx bladder cancer & kidney stones. Pt is in [facility]10. Please advise [facility] 10-01-2023 Telephone encounter Note Thanks. Dr. Osiel Rosario called today with concerns about renal stone and bladder mass. Pt has been having gross hematuria since his scope last month. CT showed a large hematoma/clot in his bladder and non-obstructing stone. No evidence of infection, he is able to void, Hb stable. No pain. He was requesting discharge. He is scheduled to see you 10/07, but wondering if you want to set him up for clot evac instead. [facility] Work Phone: 09-23-2023 History of Present illness Narrative 15 minute tuol-dm-stmx follow-up anticoagulation appointment. INR performed in office per protocol. INR 2.4 (goal range: 2.0-3.0). Patient reports: Taking warfarin dosing as documented. Missed or extra doses of warfarin: No Changes to medications: No Changes to lifestyle (diet / alcohol / smoking / activity): No Recent emergency department visit / hospitalization / health changes / new contraindication to current anticoagulant: No Signs/symptoms of bruising/bleeding or clotting or any intolerable adverse events: YES Sabi colored urine d/t scope. This is improving Upcoming procedures: No Anticoagulant prescription needed: No Seen referring provider in the last year Duration of therapy reviewed Assessment: INR is remaining stable in therapeutic range on current warfarin regimen. Plan: Patient instructed to continue warfarin 7.5 mg MWF and 10 mg AOD. Check INR in 4 week(s). Patient verbalizes understanding of anticoagulant dosing instructions and information discussed. Dosing regimen, counseling, and follow-up appointment were provided to the patient. Patient reminded to call with questions or any medication changes. Patient instructed to seek medical attention if any major bleeding/bleeding that persists or worsens. Evelyn Steward [facility] 09/23/23 1124 documented in this encounter [facility] 09-01-2023 History of Present illness Narrative 15 minute oinc-mw-extt follow-up anticoagulation appointment. INR performed in office per protocol. INR 1.8 (goal range: 2.0-3.0). Patient reports: Taking warfarin dosing as documented. Missed or extra doses of warfarin: YES Held x5 days for procedure Changes to medications: YES Last day of antibiotic Changes to lifestyle (diet / alcohol / smoking / activity): No Recent emergency department visit / hospitalization / health changes / new contraindication to current anticoagulant: No Signs/symptoms of bruising/bleeding or clotting or any intolerable adverse events: YES Blood in urine d/t cysto Upcoming procedures: No Anticoagulant prescription needed: No Seen referring provider in the last year Duration of therapy reviewed Assessment: INR remains subtherapeutic, but is rising well after holding. We will continue current dosing given blood in urine as INR is trending up. Plan: Patient instructed to continue warfarin 7.5 mg MWF and 10 mg AOD. Check INR in 3 week(s). Patient verbalizes understanding of anticoagulant dosing instructions and information discussed. Dosing regimen, counseling, and follow-up appointment were provided to the patient. Patient reminded to call with questions or any medication changes. Patient instructed to seek medical attention if any major bleeding/bleeding that persists or worsens. Evelyn Steward [facility] 09/01/23 1107 documented in this encounter [facility] 08-29-2023 Miscellaneous Notes Patient's spouse contacted [facility] to report patient was ordered a new antibiotic that he plans to start today. Patient completed cystoscopy on 08/27/23 and ordered to begin cefadroxil 500 mg BID x 3 days. Advised spouse that no change in INR anticipated as no significant DDI w/ abx choice and warfarin. Patient to continue to monitor for abnormal bleeding/bruising per usual recommendations. Spouse v/u. documented in this encounter [facility] 08-29-2023 Telephone encounter Note Patient's spouse [facility] to report patient was ordered a new antibiotic that he plans to start today. Patient completed cystoscopy on 08/27/23 and ordered to begin cefadroxil 500 mg BID x 3 days. Advised spouse that no change in INR anticipated as no significant DDI w/ abx choice and warfarin. Patient to continue to monitor for abnormal bleeding/bruising per usual recommendations. Spouse v/u. [email or web address] [facility] Work Phone: 08-27-2023 Miscellaneous Notes Return the office in [place] 3-4 weeks. Review pathology. documented in this encounter [facility] 08-27-2023 Telephone encounter Note Return the office in [place] 3-4 weeks. Review pathology. [facility] 08-18-2023 Miscellaneous Notes ,Grace lvm [phone] to inform that the patient is on an Antibiotic for a UTI. Grace requested a call back to her number [phone]. Returned call to patient's Grace. Patient was started on Amoxicillin 500 mg BID x 7 days on Tuesday 08/15. Advised Grace that this medication does not usually affect warfarin and that no dose adjustments are needed at this time. She v/u. documented in this encounter [facility] 08-18-2023 Telephone encounter Note ,Grace lvm [phone] to inform that the patient is on an Antibiotic for a UTI. Grace requested a call back to her number [phone]. [facility] 08-18-2023 Telephone encounter Note Returned call to patient's Grace. Patient was started on Amoxicillin 500 mg BID x 7 days on Tuesday 08/15. Advised Grace that this medication does not usually affect warfarin and that no dose adjustments are needed at this time. She v/u. [facility] [employer] [facility] Work Phone: 08-14-2023 Miscellaneous Notes called for patient requesting a refill of his warfarin 5 mg tablets for 90 days to [facility]. Last saw referring provider 07/29/2023 Refill sent electronically. documented in this encounter [facility] 08-14-2023 Telephone encounter Note called for patient requesting a refill of his warfarin 5 mg tablets for 90 days to [facility] in [place]. Last saw referring provider 07/29/2023 [employer] 08-14-2023 Telephone encounter Note Refill sent electronically. [facility] Work Phone: 08-13-2023 Note Procedure: Chest x-ray performed Number of views:2 History:Preop diabetes heart disease Comparison:02/17/2023 Findings: The heart and lungs show no acute findings, and the mediastinum and kaia are grossly negative . Impression: 1. No acute change. Finalized by Yash Rinaldi MD on 08/13/2023 10:22 AM [email or web address] 08-13-2023 Instructions Elsa Alvarado RN - 08/13/2023 9:45 AM EST Preoperative Education Checklist- General Surgery date: 08/27/23 Surgery time: 10a Arrival time: 8a 1. Bring a photo ID and your insurance card with you the day of surgery. You will check in at the main lobby of the [facility]- registration desk is straight ahead as soon as you walk in. Tell them you are here for surgery. 2. If you have a Living Will/Durable Power of Field [employer] Associate for Health Care that is not on file here, please bring a copy the day of surgery. 3. Please shower/bathe the night before surgery with the provided soap or wipes. Do not shower the morning of surgery- you will do use wipes when you arrive here at the hospital before getting into your surgical gown. Do not shave the area of your procedure for 2 days prior to your surgery. 4. NO powder, lotion, perfume/cologne, aftershave, make-up, deodorant, or hair products after you have bathed. 5. NO nail montserratian/acrylic on at least one finger. If you are having a hand, wrist or foot surgery then all nail montserratian and artificial/acrylic nails must be removed from that hand or foot. 6. Avoid ALL Aspirin and non-steroidal anti-inflammatory drugs and certain vitamins (Ibuprofen, Advil, Aleve, Excedrin, Meloxicam, Celebrex, fish/krill oil, etc.) for 7 days prior to surgery as instructed by your surgeon and/or your prescribing doctor. Tylenol IS ALLOWED. If you are on Ticlid, Xarelto, Eliquis, Pradaxa, Plavix or Coumadin, please check with your prescribing doctor for instructions for when to stop them. 7. If you use an inhaler, continue to use it routinely. 8. Nothing to eat or drink (not even water, gum, mints, or hard candy!) AFTER midnight prior to your surgery. 9. Take only medications that you are instructed to on the morning of surgery with a TINY SIP OF WATER. 10. Choose a responsible adult that will be able to drive you home when you are discharged from your hospital stay for your surgery and can stay with you in your home for 24 hours after your procedure. You must NOT drive any vehicle or operate any machinery for 24 hours after surgery. 11. When you dress for your appointment, please wear loose fitting clothing that is appropriate to accommodate your surgical area procedure. BRING WITH YOU ANY DEVICES YOU MAY NEED: NEENA hose, ice machine, sling/swath, brace or special shoe, oversized zip-up or button up shirt, CPAP machine if staying overnight. 12. Do NOT wear jewelry, watches, or any piercings or metal for surgery- leave these valuables and money at home. 13. Do NOT wear contact lenses for surgery- glasses are okay if needed. 14. The anesthesiologist will talk with you the day of surgery and will ask you to sign a Consent Form. 15. Refrain from smoking or any type of tobacco use for at least 8 hours and marijuana for 24 hours prior to arrival for your surgery. 16. If a GREEN BLOOD band is given to you, please bring it with you for the day of surgery. 17. Notify your surgeon if you develop any illness before your surgery. 18. If you are staying overnight, please DO NOT BRING your home medications with you. 19. If you have any questions prior to surgery, please call the Preadmission Testing office at [phone], Mon.-Fri. 7 a.m.-3 p.m. Leave a voicemail if needed. Pre-Surgery Instructions: Medication Instructions amLODIPine (NORVASC) 10 mg tablet Take morning of procedure amoxicillin (AMOXIL) 500 mg capsule Check with prescribing doctor for instructions aspirin 81 mg Check with prescribing doctor for instructions atorvastatin (LIPITOR) 80 mg tablet Stop taking 0 days prior to procedure carvediloL (COREG) 25 mg tablet Take morning of procedure furosemide (LASIX) 20 mg tablet Stop taking 0 days prior to procedure hydroCHLOROthiazide (HYDRODIURIL) 25 mg tablet Stop taking 0 days prior to procedure lisinopriL (PRINIVIL,ZESTRIL) 40 mg tablet Take morning of procedure metformin HCl (METFORMIN ORAL) Stop taking 0 days prior to procedure nitroglycerin (NITROSTAT) 0.4 MG SL tablet Check with prescribing doctor for instructions PAROXETINE HCL ORAL Stop taking 0 days prior to procedure warfarin (COUMADIN) 5 mg tablet Check with prescribing doctor for instructions [email or web address] History of Present illness Narrative 15 minute [id number] follow-up anticoagulation appointment. INR performed in office per protocol. INR 2.5 (goal range: 2.0-3.0). Patient reports: Taking warfarin dosing as documented. Missed or extra doses of warfarin: No Changes to medications: No Changes to lifestyle (diet / alcohol / smoking / activity): No Recent emergency department visit / hospitalization / health changes / new contraindication to current anticoagulant: No Signs/symptoms of bruising/bleeding or clotting or any intolerable adverse events: No Upcoming procedures: YES 3/6 urology procedure. Patient to hold x5 days. Patient declines Lovenox bridge Anticoagulant prescription needed: YES- Galor,-Churchill; 90 day Seen referring provider in the last year Duration of therapy reviewed Assessment: INR is remaining stable in therapeutic range on current warfarin regimen. Plan: Patient instructed to continue warfarin 7.5 mg MWF and 10 mg AOD. Hold as instructed for upcoming procedure. Check INR in 3 week(s). Patient verbalizes understanding of anticoagulant dosing instructions and information discussed. Dosing regimen, counseling, and follow-up appointment were provided to the patient. Patient reminded to call with questions or any medication changes. Patient instructed to seek medical attention if any major bleeding/bleeding that persists or worsens. Evelyn Steward [facility] 08/13/23 0938 documented in this encounter [facility] 07-29-2023 History of Present illness Narrative Sheeba Rossnett Date of visit: 07/29/2023 Date of : 1945 Age: 78 y.o. Patient Active Problem List Diagnosis Cerebrovascular disease Coronary artery disease involving [place] coronary artery of [place] heart without angina pectoris Hyperlipidemia Mineral metabolism disorder Elevated PSA Bladder cancer ([facility]) Presence of coronary angioplasty implant and graft Severe obesity (BMI 35.0-39.9) with comorbidity ([facility]) Benign prostatic hyperplasia with urinary obstruction Urinary tract infection without hematuria Paroxysmal atrial fibrillation ([facility]) Primary hypertension detention (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 Bulbous urethral stricture Allergies Allergen Reactions Celecoxib Dizziness Niacin Rash Prasugrel Other (See Comments) and Rash Current Outpatient Medications Medication Sig Dispense Refill amLODIPine (NORVASC) 10 mg tablet Take 1 tablet (10 mg total) by mouth in the morning. 90 tablet 3 amoxicillin (AMOXIL) 500 mg capsule Take 1 capsule (500 mg total) by mouth once. PRN dental procedures aspirin 81 mg Take 1 tablet (81 mg total) by mouth in the morning. 30 tablet 11 atorvastatin (LIPITOR) 80 mg tablet Take 1 tablet (80 mg total) by mouth in the morning. 90 tablet 3 carvediloL (COREG) 25 mg tablet Take 1 tablet (25 mg total) by mouth in the morning and 1 tablet (25 mg total) before bedtime. 180 tablet 3 furosemide (LASIX) 20 mg tablet Take 1 tablet (20 mg total) by mouth daily. 90 tablet 3 hydroCHLOROthiazide (HYDRODIURIL) 25 mg tablet Take 1 tablet (25 mg total) by mouth daily. 90 tablet 0 lisinopriL (PRINIVIL,ZESTRIL) 40 mg tablet Take 1 tablet (40 mg total) by mouth in the morning. 90 tablet 3 metformin HCl (METFORMIN ORAL) Take 500 mg by mouth daily with breakfast. nitroglycerin (NITROSTAT) 0.[address] 1 tablet (0.4 mg total) under the tongue every 5 (five) minutes as needed for chest pain (for chest pain). 25 tablet 3 PAROXETINE HCL ORAL 20 mg daily. warfarin (COUMADIN) 5 mg tablet TAKE ONE AND ONE HALF TO TWO TABLETS BY MOUTH DAILY DIRECTED 180 tablet 3 No current facility-administered medications for this visit. 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 Here for preoperative cardiovascular risk assessment. Planned cystoscopy procedure. Patient stated that he is doing fairly well. No active complaints. Denies any chest pain or shortness of breath or palpitations or dizziness orthopnea or leg edema. No syncope or presyncope. Vitals stable. No tobacco use. Has not been doing much physical exercise or strenuous activities. Snores, never tested for sleep apnea. Past Medical History: Diagnosis Date Arthritis Atrial fibrillation ([facility] Coronary artery disease 3 stents 2004 Diabetes mellitus type 2, controlled ([facility]) Hyperlipidemia Hypertension Presence of coronary angioplasty implant and graft Shortness of breath Skin cancer and bladder Stroke ([facility]) TIA (transient ischemic attack) Urinary frequency Visual impairment No data recorded No data recorded No data recorded Past Surgical History: Procedure Laterality Date APPENDECTOMY BACK SURGERY CARDIAC CATHETERIZATION CAROTID STENT 3 valves CYSTOSCOPY N/A 08/19/2022 Performed by Fabián Bishop MD at [facility] CYSTOSCOPY N/A 11/12/2021 Performed by Fabián Bishop MD at [facility] CYSTOSCOPY N/A 05/14/2021 Performed by Fabián Bishop MD at [facility] CYSTOSCOPY N/A 05/03/2020 Performed by Fabián Bishop MD at [facility] CYSTOSCOPY N/A 12/13/2019 Performed by Fabián Bishop MD at [facility] CYSTOSCOPY N/A 03/25/2018 Performed by Fabián Bishop MD at [facility] CYSTOSCOPY N/A 08/04/2017 Performed by Fabián Bishop MD at [facility] CYSTOSCOPY DILATATION URETHRAL N/A 03/03/2023 Performed by Fabián Bishop MD at [facility] CYSTOSCOPY DILATATION URETHRAL N/A 11/12/2021 Performed by Fabián Bishop MD at [facility] CYSTOSCOPY DILATATION URETHRAL N/A 05/14/2021 Performed by Fabián Bishop MD at [facility] CYSTOSCOPY DILATATION URETHRAL N/A 12/13/2019 Performed by Fabián Bishop MD at [facility] CYSTOSCOPY DILATATION URETHRAL Bilateral 09/23/2018 Performed by Fabián Bishop MD at [facility] CYSTOSCOPY DILATATION URETHRAL BULBAR N/A 08/19/2022 Performed by Fabián Bishop MD at [facility] CYSTOSCOPY RETROGRADE PYELOGRAM Bilateral 03/03/2023 Performed by Fabián Bishop MD at [facility] CYSTOSCOPY RETROGRADE PYELOGRAM Bilateral 11/15/2020 Performed by Fabián Bishop MD at [facility] CYSTOSCOPY RETROGRADE PYELOGRAM Bilateral 04/21/2019 Performed by Fabián Bishop MD at [facility] CYSTOSCOPY RETROGRADE PYELOGRAM Bilateral 01/13/2017 Performed by Fabián Bishop MD at [facility] CYSTOSCOPY W/ INTERNAL URETHROTOMY 08/14/2015 stent removal CYSTOSCOPY WITH DILATATION N/A 05/03/2020 Performed by Fabián Bishop MD at [facility] EXTERNAL EAR SURGERY left ear, cancer removal EYE SURGERY HERNIA REPAIR february 2010 and 2012 LASIK TONSILLECTOMY TOTAL KNEE ARTHROPLASTY TRANSURETHRAL RESECTION OF BLADDER TUMOR 07/05/2015 TRANSURETHRAL RESECTION OF PROSTATE Family History Problem Relation Age of Onset Heart failure Father No Known Problems Mother Social History Socioeconomic History Marital status: Spouse name: Not on file Number of children: Not on file Years of education: Not on file Highest education level: Not on file Occupational History Not on file Tobacco Use Smoking status: Former Smokeless tobacco: Never Vaping Use Vaping Use: Never used Substance and Sexual Activity Alcohol use: No Drug use: No Sexual activity: Defer Partners: Female Other Topics Concern Caffeine Use Yes Social History Narrative Not on file Social Determinants of Health Financial Resource Strain: Not on file Food Insecurity: No Food Insecurity (05/07/2023) Hunger Screening Food Insecurity - Worry: Never True Food Insecurity - Inability: Never True Transportation Needs: Not on file Physical Activity: Not on file Stress: Not on file Social Connections: Not on file Interpersonal Safety: Not on file Housing Instability: Not on file Review of Systems Review of Systems Respiratory: Negative for cough, hemoptysis and wheezing. Musculoskeletal: Positive for back pain and neck pain. Gastrointestinal: Negative for abdominal pain, change in bowel habit and hematochezia. Genitourinary: Negative for dysuria and hematuria. Neurological: Negative for focal weakness, headaches and paresthesias. CARDIOVASCULAR: Please review HPI. Physical Examination General appearance: Alert, oriented and cooperative. In no acute distress. Skin: Warm and dry to touch. Head: Normocephalic, without obvious abnormality, atraumatic. Ears, Nose, Mouth, Throat: Throat clear without erythema or exudate. Dentition intact. Eyes: Conjunctivae unremarkable, EOM intact. Neck: No JVD, No carotid bruit. Neck supple, trachea midline. Respiratory: Clear to auscultation bilaterally, no use of accessory muscles. Cardiovascular: RRR with normal S1 and S2 with no murmurs. Gastrointestinal: Soft, non-tender. Bowel sounds normal. Musculoskeletal: No peripheral edema. Neurologic: Oriented to time, person and place, affect appropriate. No focal/major motor defects noted. Psychiatric: Appropriate mood, memory and judgement. VITAL SIGNS: BP 124/66 Pulse 61 Ht 182.9 cm (6') Wt 117.9 kg (260 lb) SpO2 95% BMI 35.26 kg/m No orders of the defined types were placed in this encounter. There are no discontinued medications. IMPRESSIONS/PLAN 1. Encounter for pre-operative cardiovascular clearance 2. History of coronary angioplasty with insertion of stent 3. Chronic coronary artery disease 4. Paroxysmal atrial fibrillation (CMS-HCC) 5. Mild mitral regurgitation 6. Essential hypertension 7. History of CVA (cerebrovascular accident) 8. History of hyperlipidemia Previous cardiac related labs and test results were reviewed and discussed with the patient. 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 Patient considered at moderate risk for perioperative cardiovascular complications, risk non prohibitive undergoing low risk procedure. Can hold aspirin for 5-7 days prior to procedure and warfarin 3-5 days prior to procedure and resume both when cleared afterwards. No cardiac testing ordered today. Encouraged patient to increase his physical activity and incorporate walking routines. Recommended getting tested for sleep apnea as patient is snores and never tested for sleep apnea. To discuss with PCP. Follow-up in 6-8 months or sooner if needed. Patient to call us with any cardiac questions or concerns. TODAYS ORDERS No orders of the defined types were placed in this encounter. FOLLOW UP Return in about 6 months (around 01/27/2024). PCP: Shabana Costello MD Referring Physician: Shabana Costello MD [address] [place] [address] documented in this encounter [facility] 07-29-2023 Miscellaneous Notes Addended by: DEJON SANTIAGO on: 07/29/2023 02:32 PM Modules accepted: Orders documented in this encounter [facility] 07-29-2023 Note Addended by: DEJON SANTIAGO on: 07/29/2023 02:32 PM Modules accepted: Orders [facility] 07-28-2023 Miscellaneous Notes Left message for patient to remind them to bring their most current medication list with them to their appointment. documented in this encounter [facility] 07-28-2023 Telephone encounter Note Left message for patient to remind them to bring their most current medication list with them to their appointment. [facility] 07-28-2023 History of Present illness Narrative Images from the original note were not included. Subjective Patient ID: Sheeba Adames is a 78 y.o. male who presents for Toenail Care (PCP: Diane LAROSE 06/05/23, A1C: 6.5, BS: 141). HPI HPI Onychomycosis/Toenail Fungus: Toenail deformity Established pt presents in clinic today for diabetic foot evaluation and care of deformed toenails. Location: indicates all digits with thickened, deformed and discolored toenails. Duration: chronic toenail deformity, multiple years duration. Severity of symptoms: mild; acknowledging diabetic neuropathy involving both feet. Onset: gradual, without injury or trauma. Status: problematic/symptomatic over the past several weeks or so. Context: hard to trim, hard to reach; self-care is difficult, ineffective and not practical; increasing risk exposure. Family members are unable to provide effective care. Characteristics: discolored, thickened, , pressure , ingrowing , elongated , crusty , /lifting; without bleeding or drainage. Relieved bypatient is well satisfied with palliative care measures. Previous Treatment: palliative care as noted. Risk factors: type II diabetes. Diabetic peripheral vasculopathy. Chronic venous insufficiency/stasis ulceration by history. CVA (2015). comorbidities. Polypharmacy. Anti-coagulant therapy. Type II diabetes. Diabetic peripheral neuropathy. Diabetic vasculopathy/CVI. Mobility and flexibility restraints. Toenail deformity. Shoe and/or digital trauma and related complications. Aggravated by: shoe gear , pressure , walking; catching and snagging on clothing etc.. Medications Current Outpatient Medications: Accu-Chek Softclix Lancets lancets, use 1 LANCET to TEST BLOOD SUGAR once daily, Disp: 100 each, Rfl: 1 amLODIPine (Norvasc) 10 MG tablet, Take by mouth Daily, Disp: , Rfl: amoxicillin (Amoxil) 500 MG tablet, 4 tabs PO once 30-60 mins before procedure with food, Disp: 4 tablet, Rfl: 3 ASPIRIN 81 MG chewable tablet, Aspirin 81, Disp: , Rfl: atorvastatin (Lipitor) 80 MG tablet, 1 (one) time each day at the same time., Disp: , Rfl: carvedilol (Coreg) 25 MG tablet, every 12 (twelve) hours., Disp: , Rfl: furosemide (Lasix) 20 MG tablet, Take 20 mg by mouth in the morning., Disp: , Rfl: glucose blood (Accu-Chek Irina Plus) test strip, 1 each by Other route 1 (one) time each day at the same time., Disp: 100 each, Rfl: 1 hydroCHLOROthiazide (HYDRODiuril) 25 MG tablet, 1 (one) time each day at the same time., Disp: , Rfl: lisinopril 40 MG tablet, 1 (one) time each day at the same time., Disp: , Rfl: metFORMIN XR (Glucophage-XR) 500 MG 24 hr tablet, TAKE ONE TABLET BY MOUTH DAILY WITH EVENING MEAL for 90, Disp: 90 tablet, Rfl: 1 metFORMIN, OSM, (Fortamet) 500 MG 24 hr tablet, Take 500 mg by mouth in the morning. Take with meals., Disp: , Rfl: nitroglycerin (Nitrostat) 0.4 MG SL tablet, Sublingual, Disp: , Rfl: PARoxetine (Paxil) 20 MG tablet, Take 1 tablet (20 mg) by mouth in the morning., Disp: 90 tablet, Rfl: 1 warfarin (Coumadin) 5 MG tablet, 1 (one) time each day at the same time., Disp: , Rfl: Allergies Celecoxib, Niacin, and Prasugrel Past Surgical History Past Surgical History: Procedure Laterality Date APPENDECTOMY CATARACT EXTRACTION Right CORONARY STENT PLACEMENT x3 CYSTOSCOPY CYSTOSCOPY 11/2019 HERNIA REPAIR KNEE ARTHROSCOPY W/ DEBRIDEMENT Bilateral LASIX RENOGRAM LUMBAR SPINE SURGERY L4-5 NASAL SEPTUM SURGERY TOTAL KNEE ARTHROPLASTY Bilateral TRANSURETHRAL RESECTION OF PROSTATE Family History Family History Problem Relation Name Age of Onset Cancer Mother Diabetes Mother Hypertension Father Heart disease Father No Known Problems Sister 2 No Known Problems Daughter 1 No Known Problems Son 1 Objective General Examination: GENERAL EXAMINATIONalert and oriented. pleasant disposition. Independently ambulatory wearing new balance extra depth shoes with accommodative orthoses. Accompanied by his spouse, Grace. FOOT EXAM: Date of Last Foot Exam 07/28/2023 Sensory testing performed: sensations diminished Sensory and motor testing performed: strength normal Pedal pulse taking performed: 1+ Vascular: DORSALIS PEDIS PULSE:1/4, bilaterally. POSTERIOR TIBIAL PULSE: faintly palpable, bilaterally. TEMPERATURE GRADIENT: warm to cool. EDEMA:brawny edema bilateral lower extremities and ankles; moderate-severe stasis pigmentation and dermatosis.. CAPILLARY FILLING TIME(sec):capillary fill intact bilateral digits less than 3 secs. Neurologic: SHARP SENSATION: tactile and light touch sensation is compromised over the digital areas. SEMMES-OLGA 5.07 MONOFILAMENT: intact localization all points plantarly. Dermatologic: SKIN FINDINGS:intact. Skin turgor is fair. HYPERTROPHIC LESION:no forefoot or digital keratotic pressure lesions are noted. NAIL PATHOLOGY:Bilateral great toes: DSO/pincer toenail deformity: Toenail dystrophy, elongation, thickening, discoloration, crumbly texture, the distal margins are cryptotic, keratotic, mildly tender, non-inflamed, without drainage. 2nd digit right foot: TDO deformity: Toenail dystrophy, thickening, clubbing, discoloration, subtotal detachment, periungual hyperkeratosis, without drainage. All remaining digits: Varying degrees of toenail dystrophy, thickening, elongation, discoloration, periungual hyperkeratosis, without drainage. MYCOSIS SCALE:total with debris, 2nd digit right foot. INTERDIGITAL MACERATION:clean, dry, non-inflamed. ULCER: shallow erosive areas of the lower extremities; associated with blister formation and chronic venous insufficiency. SKIN PATHOLOGY:texture, turgor, hair growth, within normal limits. Orthopedic: JOINT RANGE OF MOTION:maintains functional ankle, subtalar, midtarsal and MTP joint range of motion. DEFORMITIES:the central digits are mildly contracted Radiology: Assessment/Plan 1. 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 2. Type II diabetes. 3. Diabetic peripheral vasculopathy (Q8). 4. 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 5. CVA (2015). 6. Chronic venous insufficiency bilateral; stasis ulceration by history. Plan: Notes: conservative and palliative care measures are preferred, understood and again indicated. Diabetic education and assessment relative to the high risk foot condition. Encourage compliance with elevation and gradient compression sock therapy. Hygiene and skin care measures discussed Procedure: Toenail debridement: Aseptic technique: Hand and power instrumentation: Onychodebridement in length and thickness, with curettage of any cryptotic margins, all periungual debris; providing effective pressure relief; reducing shoe and digital trauma; reducing potential risks associated with a high risk diabetic foot and lower extremity condition and related complications This note was created with the assistance of a speech recognition program. While intending to generate a timely document that accurately reflects the content of the visit, no guarantee can be provided that every grammatical or spelling mistake has been or will be identified or corrected. Thank you for your understanding. Sunil Hernandez DPM documented in this encounter [facility] 07-28-2023 Instructions Sunil Hernandez DPM - 07/28/2023 10:15 AM EST As noted documented in this encounter [facility] 07-23-2023 History of Present illness Narrative 15 minute [id number] follow-up anticoagulation appointment. INR performed in office per protocol. INR 2.8 (goal range: 2.0-3.0). Patient reports: Taking warfarin dosing as documented. Missed or extra doses of warfarin: No Changes to medications: No Changes to lifestyle (diet / alcohol / smoking / activity): No Recent emergency department visit / hospitalization / health changes / new contraindication to current anticoagulant: No Signs/symptoms of bruising/bleeding or clotting or any intolerable adverse events: No Upcoming procedures: YES Cysto 08/27/23 w/Dr. Bishop Surgeon has requested holding 5-7 days pre-op; patient has historically bridged d/t history of CVA PPC clearance visit 07/29/23 Anticoagulant prescription needed: No Seen referring provider in the last year Duration of therapy reviewed Assessment: INR is remaining stable in therapeutic range on current warfarin regimen. Plan: Patient instructed to continue warfarin 7.5 mg Fri/Fri/Fri and 10 mg AOD. Check INR in 3 week(s) d/t pre-admission testing visit to review AC plans prior to procedure Patient verbalizes understanding of anticoagulant dosing instructions and information discussed. Dosing regimen, counseling, and follow-up appointment were provided to the patient. Patient reminded to call with questions or any medication changes. Patient instructed to seek medical attention if any major bleeding/bleeding that persists or worsens. Evelyn Steward RPH 07/23/23 1141 documented in this encounter [facility] Evaluation note Diagnosis Dermatophytosis of nail- Primary Type II diabetes mellitus with peripheral circulatory disorder (CMS/HCC) Type II or unspecified type diabetes mellitus with peripheral circulatory disorders, not stated as uncontrolled Type II diabetes mellitus with neurological manifestations (CMS/HCC) Type II or unspecified type diabetes mellitus with neurological manifestations, not stated as uncontrolled Peripheral venous insufficiency Unspecified venous (peripheral) insufficiency documented in this encounter [facility] Healthcare[facility]* Diagnosis Controlled type 2 diabetes mellitus without complication, without long-term current use of insulin ([facility]) documented in this encounter [facility]* Diagnosis Dermatophytosis of nail- Primary Type II diabetes mellitus with peripheral circulatory disorder ([facility]/HCC) Type II or unspecified type diabetes mellitus with peripheral circulatory disorders, not stated as uncontrolled Type II diabetes mellitus with neurological manifestations ([facility]/HCC) Type II or unspecified type diabetes mellitus with neurological manifestations, not stated as uncontrolled Peripheral venous insufficiency Unspecified venous (peripheral) insufficiency documented in this encounter [facility] note* Diagnosis Acute cough documented in this encounter [facility] note* Diagnosis Type 2 diabetes mellitus with diabetic neuropathy, with long-term current use of insulin ([facility])- Primary Acute on chronic diastolic congestive heart failure (CMS/HCC) Coronary arteriosclerosis in [place] artery (CMS/HCC) Coronary artery disease involving [place] coronary artery of [place] heart without angina pectoris (CMS/HCC) Paroxysmal atrial fibrillation ([facility]/HCC) Atrial fibrillation LOUISA (acute kidney injury) ([facility]/HCC) Iron deficiency anemia due to chronic blood loss Iron deficiency anemia secondary to blood loss (chronic) Other acute gastritis with hemorrhage Morbid obesity (CMS/HCC) Morbid obesity Mixed hyperlipidemia ([facility]/HCC) Mixed hyperlipidemia Urinary incontinence, unspecified type Type 2 diabetes mellitus with diabetic chronic kidney disease (CMS/HCC) Chronic kidney disease, stage 3a (HCC) (CMS/HCC) Other thrombophilia ([facility]/HCC) Anemia, unspecified type- Primary Type 2 diabetes mellitus with diabetic neuropathy, with long-term current use of insulin (CMS/HCC) Paroxysmal atrial fibrillation ([facility]/HCC) Atrial fibrillation Chronic kidney disease, stage 3b (HCC) ([facility]/HCC) documented in this encounter [facility]Evaluation note* Diagnosis Type 2 diabetes mellitus with diabetic neuropathy, with long-term current use of insulin ([facility])- Primary Acute on chronic diastolic congestive heart failure (CMS/HCC) Coronary arteriosclerosis in [place] artery (CMS/HCC) Coronary artery disease involving [place] coronary artery of [place] heart without angina pectoris (CMS/HCC) Paroxysmal atrial fibrillation (CMS/HCC) Atrial fibrillation LOUISA (acute kidney injury) (CMS/HCC) Iron deficiency anemia due to chronic blood loss Iron deficiency anemia secondary to blood loss (chronic) Other acute gastritis with hemorrhage Morbid obesity (CMS/HCC) Morbid obesity Mixed hyperlipidemia (CMS/HCC) Mixed hyperlipidemia Urinary incontinence, unspecified type Type 2 diabetes mellitus with diabetic chronic kidney disease (CMS/HCC) Chronic kidney disease, stage 3a (HCC) (CMS/HCC) Other thrombophilia ([facility]/HCC) Gastric ulcer, unspecified chronicity, unspecified whether gastric ulcer hemorrhage or perforation present documented in this encounter [facility] HealthcareEvaluation note* Diagnosis Type 2 diabetes mellitus with diabetic neuropathy, with long-term current use of insulin (CMS/HCC)- Primary Acute on chronic diastolic congestive heart failure (CMS/HCC) Coronary arteriosclerosis in [place] artery (CMS/HCC) Coronary artery disease involving [place] coronary artery of [place] heart without angina pectoris (CMS/HCC) Paroxysmal atrial fibrillation (CMS/HCC) Atrial fibrillation LOUISA (acute kidney injury) (CMS/HCC) Iron deficiency anemia due to chronic blood loss Iron deficiency anemia secondary to blood loss (chronic) Other acute gastritis with hemorrhage Morbid obesity (CMS/HCC) Morbid obesity Mixed hyperlipidemia (CMS/HCC) Mixed hyperlipidemia Urinary incontinence, unspecified type Type 2 diabetes mellitus with diabetic chronic kidney disease (CMS/HCC) Chronic kidney disease, stage 3a (HCC) (CMS/HCC) Other thrombophilia (CMS/HCC) Type 2 diabetes mellitus without complication, without long-term current use of insulin (CMS/HCC)- Primary Type 2 diabetes mellitus with diabetic neuropathy, with long-term current use of insulin (CMS/HCC) LOUISA (acute kidney injury) (CMS/HCC) Chronic kidney disease, unspecified CKD stage documented in this encounter [facility] HealthcareEvaluation note* Diagnosis Acute cough- Primary documented in this encounter [facility]Evaluation note* Diagnosis History of bilateral knee replacement- Primary Acute pain of left knee Acute pain of right knee documented in this encounter [facility]Evaluation note* Diagnosis Elevated PSA- Primary Elevated prostate specific antigen (PSA) Elevated PSA- Primary Elevated prostate specific antigen (PSA) Elevated PSA- Primary Elevated prostate specific antigen (PSA) Elevated PSA- Primary Elevated prostate specific antigen (PSA) Malignant neoplasm of overlapping sites of bladder (CMS-HCC)- Primary Elevated PSA Elevated prostate specific antigen (PSA) Malignant neoplasm of overlapping sites of bladder (CMS-HCC)- Primary Elevated PSA- Primary Elevated prostate specific antigen (PSA) Malignant neoplasm of overlapping sites of bladder (CMS-HCC) Elevated PSA- Primary Elevated prostate specific antigen (PSA) Malignant neoplasm of overlapping sites of bladder (CMS-HCC) Elevated PSA- Primary Elevated prostate specific antigen (PSA) Malignant neoplasm of overlapping sites of bladder (CMS-HCC) Urinary tract infection without hematuria, site unspecified- Primary Benign prostatic hyperplasia with urinary obstruction Malignant neoplasm of overlapping sites of bladder (CMS-HCC) Malignant neoplasm of overlapping sites of bladder (CMS-HCC)- Primary Benign prostatic hyperplasia with urinary obstruction- Primary Urinary incontinence, unspecified type- Primary Benign prostatic hyperplasia with urinary obstruction Malignant neoplasm of overlapping sites of bladder (CMS-HCC) Malignant neoplasm of overlapping sites of bladder (CMS-HCC)- Primary Occult blood positive stool Nonspecific abnormal finding in stool contents Acute on chronic diastolic congestive heart failure ([facility]) Hydroureter Benign prostatic hyperplasia with urinary obstruction Elevated PSA Elevated prostate specific antigen (PSA) Urinary incontinence- Primary Unspecified urinary incontinence Chronic combined systolic and diastolic congestive heart failure ([facility]) HFrEF (heart failure with reduced ejection fraction) ([facility]) Coronary artery disease involving [place] coronary artery of [place] heart without angina pectoris Paroxysmal atrial fibrillation ([facility]) Atrial fibrillation Urinary incontinence, unspecified type documented in this encounter [facility]* Diagnosis Type 2 diabetes mellitus with diabetic neuropathy, with long-term current use of insulin ([facility])- Primary Acute on chronic diastolic congestive heart failure ([facility]) Coronary arteriosclerosis in [place] artery ([facility]/HCC) Coronary artery disease involving [place] coronary artery of [place] heart without angina pectoris ([facility]/HCC) Paroxysmal atrial fibrillation ([facility]/HCC) Atrial fibrillation LOUISA (acute kidney injury) ([facility]) Iron deficiency anemia due to chronic blood loss Iron deficiency anemia secondary to blood loss (chronic) Other acute gastritis with hemorrhage Morbid obesity ([facility]/HCC) Morbid obesity Mixed hyperlipidemia ([facility]HCC) Mixed hyperlipidemia Urinary incontinence, unspecified type Type 2 diabetes mellitus with diabetic chronic kidney disease ([facility]) Chronic kidney disease, stage 3a (HCC) ([facility]) Other thrombophilia ([facility]) Gastric ulcer, unspecified chronicity, unspecified whether gastric ulcer hemorrhage or perforation present [facility] Diagnosis Type 2 diabetes mellitus with diabetic neuropathy, with long-term current use of insulin ([facility])- Primary Acute on chronic diastolic congestive heart failure (CMS/HCC) Coronary arteriosclerosis in [place] artery (CMS/HCC) Coronary artery disease involving [place] coronary artery of [place] heart without angina pectoris (CMS/HCC) Paroxysmal atrial fibrillation (CMS/HCC) Atrial fibrillation LOUISA (acute kidney injury) ([facility]) Iron deficiency anemia due to chronic blood loss Iron deficiency anemia secondary to blood loss (chronic) Other acute gastritis with hemorrhage Morbid obesity (CMS/HCC) Morbid obesity Mixed hyperlipidemia (CMS/HCC) Mixed hyperlipidemia Urinary incontinence, unspecified type Type 2 diabetes mellitus with diabetic chronic kidney disease (CMS/HCC) Chronic kidney disease, stage 3a (HCC) (CMS/HCC) Other thrombophilia (CMS/HCC) Gastric ulcer, unspecified chronicity, unspecified whether gastric ulcer hemorrhage or perforation present [facility] Diagnosis Elevated PSA- Primary Elevated prostate specific antigen (PSA) Elevated PSA- Primary Elevated prostate specific antigen (PSA) Elevated PSA- Primary Elevated prostate specific antigen (PSA) Elevated PSA- Primary Elevated prostate specific antigen (PSA) Malignant neoplasm of overlapping sites of bladder (CMS-HCC)- Primary Elevated PSA Elevated prostate specific antigen (PSA) Malignant neoplasm of overlapping sites of bladder (CMS-HCC)- Primary Elevated PSA- Primary Elevated prostate specific antigen (PSA) Malignant neoplasm of overlapping sites of bladder (CMS-HCC) Elevated PSA- Primary Elevated prostate specific antigen (PSA) Malignant neoplasm of overlapping sites of bladder (CMS-HCC) Elevated PSA- Primary Elevated prostate specific antigen (PSA) Malignant neoplasm of overlapping sites of bladder (CMS-HCC) Urinary tract infection without hematuria, site unspecified- Primary Benign prostatic hyperplasia with urinary obstruction Malignant neoplasm of overlapping sites of bladder (CMS-HCC) Malignant neoplasm of overlapping sites of bladder (CMS-HCC)- Primary Benign prostatic hyperplasia with urinary obstruction- Primary Urinary incontinence, unspecified type- Primary Benign prostatic hyperplasia with urinary obstruction Malignant neoplasm of overlapping sites of bladder (CMS-HCC) Malignant neoplasm of overlapping sites of bladder (CMS-HCC)- Primary Occult blood positive stool Nonspecific abnormal finding in stool contents Acute on chronic diastolic congestive heart failure (CMS-HCC) Hydroureter Benign prostatic hyperplasia with urinary obstruction Elevated PSA Elevated prostate specific antigen (PSA) Urinary incontinence- Primary Unspecified urinary incontinence Cerebrovascular disease- Primary Unspecified cerebrovascular disease Coronary artery disease involving [place] coronary artery of [place] heart without angina pectoris Paroxysmal atrial fibrillation (CMS-HCC) Atrial fibrillation 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 Long-term (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 Congestive heart failure, unspecified HF chronicity, unspecified heart failure type (CMS-HCC) Urinary incontinence, unspecified type documented in this encounter [facility] Diagnosis Elevated PSA- Primary Elevated prostate specific antigen (PSA) Elevated PSA- Primary Elevated prostate specific antigen (PSA) Elevated PSA- Primary Elevated prostate specific antigen (PSA) Elevated PSA- Primary Elevated prostate specific antigen (PSA) Malignant neoplasm of overlapping sites of bladder (CMS-HCC)- Primary Elevated PSA Elevated prostate specific antigen (PSA) Malignant neoplasm of overlapping sites of bladder (CMS-HCC)- Primary Elevated PSA- Primary Elevated prostate specific antigen (PSA) Malignant neoplasm of overlapping sites of bladder (CMS-HCC) Elevated PSA- Primary Elevated prostate specific antigen (PSA) Malignant neoplasm of overlapping sites of bladder (CMS-HCC) Elevated PSA- Primary Elevated prostate specific antigen (PSA) Malignant neoplasm of overlapping sites of bladder (CMS-HCC) Urinary tract infection without hematuria, site unspecified- Primary Benign prostatic hyperplasia with urinary obstruction Malignant neoplasm of overlapping sites of bladder (CMS-HCC) Malignant neoplasm of overlapping sites of bladder (CMS-HCC)- Primary Benign prostatic hyperplasia with urinary obstruction- Primary Urinary incontinence, unspecified type- Primary Benign prostatic hyperplasia with urinary obstruction Malignant neoplasm of overlapping sites of bladder (CMS-HCC) Malignant neoplasm of overlapping sites of bladder (CMS-HCC)- Primary Occult blood positive stool Nonspecific abnormal finding in stool contents Acute on chronic diastolic congestive heart failure ([facility]) Hydroureter Benign prostatic hyperplasia with urinary obstruction Elevated PSA Elevated prostate specific antigen (PSA) Urinary incontinence- Primary Unspecified urinary incontinence HFrEF (heart failure with reduced ejection fraction) ([facility])- Primary Urinary incontinence, unspecified type documented in this encounter [facility] Diagnosis Type 2 diabetes mellitus with diabetic neuropathy, with long-term current use of insulin ([facility])- Primary Acute on chronic diastolic congestive heart failure ([facility]) Coronary arteriosclerosis in [place] artery ([facility]) Coronary artery disease involving [place] coronary artery of [place] heart without angina pectoris ([facility]) Paroxysmal atrial fibrillation ([facility]/HCC) Atrial fibrillation LOUISA (acute kidney injury) ([facility]) Iron deficiency anemia due to chronic blood loss Iron deficiency anemia secondary to blood loss (chronic) Other acute gastritis with hemorrhage Morbid obesity (CMS/HCC) Morbid obesity Mixed hyperlipidemia (CMS/HCC) Mixed hyperlipidemia Urinary incontinence, unspecified type Type 2 diabetes mellitus with diabetic chronic kidney disease ([facility]/HCC) Chronic kidney disease, stage 3a (HCC) ([facility]) Other thrombophilia ([facility]) Dermatophytosis of nail- Primary Type II diabetes mellitus with peripheral circulatory disorder ([facility]CC) Type II or unspecified type diabetes mellitus with peripheral circulatory disorders, not stated as uncontrolled Type II diabetes mellitus with neurological manifestations (CMS/HCC) Type II or unspecified type diabetes mellitus with neurological manifestations, not stated as uncontrolled Peripheral venous insufficiency Unspecified venous (peripheral) insufficiency [facility] Diagnosis Elevated PSA- Primary Elevated prostate specific antigen (PSA) Elevated PSA- Primary Elevated prostate specific antigen (PSA) Elevated PSA- Primary Elevated prostate specific antigen (PSA) Elevated PSA- Primary Elevated prostate specific antigen (PSA) Malignant neoplasm of overlapping sites of bladder (CMS-HCC)- Primary Elevated PSA Elevated prostate specific antigen (PSA) Malignant neoplasm of overlapping sites of bladder (CMS-HCC)- Primary Elevated PSA- Primary Elevated prostate specific antigen (PSA) Malignant neoplasm of overlapping sites of bladder (CMS-HCC) Elevated PSA- Primary Elevated prostate specific antigen (PSA) Malignant neoplasm of overlapping sites of bladder (CMS-HCC) Elevated PSA- Primary Elevated prostate specific antigen (PSA) Malignant neoplasm of overlapping sites of bladder (CMS-HCC) Urinary tract infection without hematuria, site unspecified- Primary Benign prostatic hyperplasia with urinary obstruction Malignant neoplasm of overlapping sites of bladder (CMS-HCC) Malignant neoplasm of overlapping sites of bladder (CMS-HCC)- Primary Benign prostatic hyperplasia with urinary obstruction- Primary Urinary incontinence, unspecified type- Primary Benign prostatic hyperplasia with urinary obstruction Malignant neoplasm of overlapping sites of bladder (CMS-HCC) Malignant neoplasm of overlapping sites of bladder (CMS-HCC)- Primary Occult blood positive stool Nonspecific abnormal finding in stool contents Acute on chronic diastolic congestive heart failure (CMS-HCC) Hydroureter Benign prostatic hyperplasia with urinary obstruction Elevated PSA Elevated prostate specific antigen (PSA) Urinary incontinence- Primary Unspecified urinary incontinence 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)- Primary Coronary artery disease involving [place] coronary artery of [place] heart without angina pectoris Paroxysmal atrial fibrillation (CMS-HCC) Atrial fibrillation Urinary incontinence, unspecified type [facility] Diagnosis Malignant neoplasm of overlapping sites of bladder (CMS-HCC)- Primary [facility] Diagnosis Cerebrovascular disease- Primary Unspecified cerebrovascular disease Coronary artery disease involving [place] coronary artery of [place] heart without angina pectoris Paroxysmal atrial fibrillation (CMS-HCC) Atrial fibrillation detention (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 Long-term (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 documented in this encounter [facility] Diagnosis Elevated PSA- Primary Elevated prostate specific antigen (PSA) Elevated PSA- Primary Elevated prostate specific antigen (PSA) Elevated PSA- Primary Elevated prostate specific antigen (PSA) Elevated PSA- Primary Elevated prostate specific antigen (PSA) Malignant neoplasm of overlapping sites of bladder (CMS-HCC)- Primary Elevated PSA Elevated prostate specific antigen (PSA) Malignant neoplasm of overlapping sites of bladder (CMS-HCC)- Primary Elevated PSA- Primary Elevated prostate specific antigen (PSA) Malignant neoplasm of overlapping sites of bladder (CMS-HCC) Elevated PSA- Primary Elevated prostate specific antigen (PSA) Malignant neoplasm of overlapping sites of bladder (CMS-HCC) Elevated PSA- Primary Elevated prostate specific antigen (PSA) Malignant neoplasm of overlapping sites of bladder (CMS-HCC) Urinary tract infection without hematuria, site unspecified- Primary Benign prostatic hyperplasia with urinary obstruction Malignant neoplasm of overlapping sites of bladder (CMS-HCC) Malignant neoplasm of overlapping sites of bladder (CMS-HCC)- Primary Benign prostatic hyperplasia with urinary obstruction- Primary Urinary incontinence, unspecified type- Primary Benign prostatic hyperplasia with urinary obstruction Malignant neoplasm of overlapping sites of bladder (CMS-HCC) Malignant neoplasm of overlapping sites of bladder (CMS-HCC)- Primary Occult blood positive stool Nonspecific abnormal finding in stool contents Acute on chronic diastolic congestive heart failure (CMS-HCC) Hydroureter Benign prostatic hyperplasia with urinary obstruction Elevated PSA Elevated prostate specific antigen (PSA) Urinary incontinence- Primary Unspecified urinary incontinence Cerebrovascular disease- Primary Unspecified cerebrovascular disease Coronary artery disease involving [place] coronary artery of [place] heart without angina pectoris Paroxysmal atrial fibrillation (CMS-HCC) Atrial fibrillation 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 Long-term (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* Diagnosis Cerebrovascular disease- Primary Unspecified cerebrovascular disease Coronary artery disease involving [place] coronary artery of [place] heart without angina pectoris Paroxysmal atrial fibrillation (CMS-HCC) Atrial fibrillation detention (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 Long-term (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 documented in this encounter [facility]* Diagnosis Cerebrovascular disease- Primary Unspecified cerebrovascular disease Coronary artery disease involving [place] coronary artery of [place] heart without angina pectoris Paroxysmal atrial fibrillation (CMS-HCC) 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* Diagnosis Venous stasis ulcer of left lower leg with edema of left lower leg (CMS-HCC)- Primary Bilateral lower extremity edema Lymphedema Other noninfectious lymphedema [facility] [facility] Diagnosis Venous stasis ulcer of right lower leg with edema of right lower leg (CMS-HCC)- Primary Lymphedema Other noninfectious lymphedema [facility] Diagnosis Urinary incontinence, unspecified type- Primary documented in this encounter [facility]* Diagnosis Benign prostatic hyperplasia with urinary obstruction- Primary documented in this encounter [facility]* Diagnosis Bladder cancer (CMS-HCC) Malignant neoplasm of bladder, part unspecified Bulbous urethral stricture Cerebrovascular disease- Primary Unspecified cerebrovascular disease Coronary artery disease involving [place] coronary artery of [place] heart without angina pectoris Paroxysmal atrial fibrillation (CMS-HCC) Atrial fibrillation detention (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 Long-term (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 Malignant neoplasm of overlapping sites of bladder (CMS-HCC) Bulbous urethral stricture documented in this encounter [facility]* Diagnosis Lymphedema- Primary Other noninfectious lymphedema Venous stasis ulcer of right lower leg with edema of right lower leg (CMS-HCC) documented in this encounter [facility]* Diagnosis Bladder cancer (CMS-HCC) Malignant neoplasm of bladder, part unspecified Bulbous urethral stricture Encounter for pre-operative cardiovascular clearance- Primary History of coronary angioplasty with insertion of stent Chronic coronary artery disease Coronary atherosclerosis of unspecified type of vessel, [place] or graft Paroxysmal atrial fibrillation ([facility]) Atrial fibrillation Mild mitral regurgitation Essential hypertension Unspecified essential hypertension History of CVA (cerebrovascular accident) Transient ischemic attack (TIA), and cerebral infarction without residual deficits History of hyperlipidemia Malignant neoplasm of overlapping sites of bladder (CMS-HCC) Bulbous urethral stricture documented in this encounter [facility]* Diagnosis Cerebrovascular disease- Primary Unspecified cerebrovascular disease Coronary artery disease involving [place] coronary artery of [place] heart without angina pectoris Paroxysmal atrial fibrillation (CMS-HCC) Atrial fibrillation detention (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 Long-term (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 Other cerebral infarction (CMS-HCC) documented in this encounter [facility]* Diagnosis Urinary incontinence, unspecified type- Primary Benign prostatic hyperplasia with urinary obstruction Malignant neoplasm of overlapping sites of bladder (CMS-HCC) documented in this encounter [facility]* Diagnosis Bladder cancer ([facility]) Malignant neoplasm of bladder, part unspecified Bulbous urethral stricture Cerebrovascular disease- Primary Unspecified cerebrovascular disease Coronary artery disease involving [place] coronary artery of [place] heart without angina pectoris Paroxysmal atrial fibrillation ([facility]) Atrial fibrillation 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 Long-term (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 Malignant neoplasm of overlapping sites of bladder (CMS-HCC) Bulbous urethral stricture documented in this encounter [facility]* Diagnosis Bladder cancer ([facility]) Malignant neoplasm of bladder, part unspecified Bulbous urethral stricture Pre-op exam- Primary CVD (cardiovascular disease) Unspecified cardiovascular disease Hypertension, unspecified type Type 2 diabetes mellitus without complication, without long-term current use of insulin (CMS-[facility]) Pre-op exam CVD (cardiovascular disease) Unspecified cardiovascular disease Hypertension, unspecified type Type 2 diabetes mellitus without complication, without long-term current use of insulin ([facility]) Malignant neoplasm of overlapping sites of bladder ([facility]CC) Bulbous urethral stricture documented in this encounter [facility]* Diagnosis Cerebrovascular disease- Primary Unspecified cerebrovascular disease Coronary artery disease involving [place] coronary artery of [place] heart without angina pectoris Paroxysmal atrial fibrillation ([facility]) 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* Diagnosis Cerebrovascular disease- Primary Unspecified cerebrovascular disease Coronary artery disease involving [place] coronary artery of [place] heart without angina pectoris Paroxysmal atrial fibrillation ([facility]) Atrial fibrillation detention (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 Long-term (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 documented in this encounter [facility]* Diagnosis Bulbous urethral stricture- Primary documented in this encounter [facility]* Diagnosis Cerebrovascular disease- Primary Unspecified cerebrovascular disease Coronary artery disease involving [place] coronary artery of [place] heart without angina pectoris Paroxysmal atrial fibrillation ([facility]CC) 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* Diagnosis History of myocardial infarction- Primary History of coronary angioplasty with insertion of stent Paroxysmal atrial fibrillation ([facility]) Atrial fibrillation Mild mitral regurgitation History of CVA (cerebrovascular accident) Transient ischemic attack (TIA), and cerebral infarction without residual deficits Essential hypertension Unspecified essential hypertension Hx of hyperlipidemia Chest pain, unspecified type HFrEF (heart failure with reduced ejection fraction) ([facility]) documented in this encounter [facility]* Diagnosis Cerebrovascular disease- Primary Unspecified cerebrovascular disease Coronary artery disease involving [place] coronary artery of [place] heart without angina pectoris Paroxysmal atrial fibrillation ([facility]) 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* Diagnosis Cerebrovascular disease- Primary Unspecified cerebrovascular disease Coronary artery disease involving [place] coronary artery of [place] heart without angina pectoris Paroxysmal atrial fibrillation ([facility]) 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* Diagnosis Cerebrovascular disease- Primary Unspecified cerebrovascular disease Coronary artery disease involving [place] coronary artery of [place] heart without angina pectoris Paroxysmal atrial fibrillation ([facility]) Atrial fibrillation detention (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 Long-term (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 documented in this encounter [facility]* Diagnosis Congestive heart failure, unspecified HF chronicity, unspecified heart failure type ([facility])- Primary documented in this encounter [facility]* Diagnosis Cerebrovascular disease- Primary Unspecified cerebrovascular disease Coronary artery disease involving [place] coronary artery of [place] heart without angina pectoris Paroxysmal atrial fibrillation ([facility]) 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* Diagnosis Cerebrovascular disease- Primary Unspecified cerebrovascular disease Coronary artery disease involving [place] coronary artery of [place] heart without angina pectoris Paroxysmal atrial fibrillation ([facility]) 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* Diagnosis Chronic combined systolic and diastolic congestive heart failure ([facility])- Primary HFrEF (heart failure with reduced ejection fraction) ([facility]) Coronary artery disease involving [place] coronary artery of [place] heart without angina pectoris Paroxysmal atrial fibrillation ([facility]) Atrial fibrillation documented in this encounter [facility]* Diagnosis Cerebrovascular disease- Primary Unspecified cerebrovascular disease Coronary artery disease involving [place] coronary artery of [place] heart without angina pectoris Paroxysmal atrial fibrillation ([facility]) Atrial fibrillation detention (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 Long-term (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 documented in this encounter [facility]* Diagnosis Elevated PSA- Primary Elevated prostate specific antigen (PSA) Elevated PSA- Primary Elevated prostate specific antigen (PSA) Elevated PSA- Primary Elevated prostate specific antigen (PSA) Elevated PSA- Primary Elevated prostate specific antigen (PSA) Malignant neoplasm of overlapping sites of bladder (CMS-HCC)- Primary Elevated PSA Elevated prostate specific antigen (PSA) Malignant neoplasm of overlapping sites of bladder (CMS-HCC)- Primary Elevated PSA- Primary Elevated prostate specific antigen (PSA) Malignant neoplasm of overlapping sites of bladder (CMS-HCC) Elevated PSA- Primary Elevated prostate specific antigen (PSA) Malignant neoplasm of overlapping sites of bladder (CMS-HCC) Elevated PSA- Primary Elevated prostate specific antigen (PSA) Malignant neoplasm of overlapping sites of bladder (CMS-HCC) Urinary tract infection without hematuria, site unspecified- Primary Benign prostatic hyperplasia with urinary obstruction Malignant neoplasm of overlapping sites of bladder (CMS-HCC) Malignant neoplasm of overlapping sites of bladder (CMS-HCC)- Primary Benign prostatic hyperplasia with urinary obstruction- Primary Urinary incontinence, unspecified type- Primary Benign prostatic hyperplasia with urinary obstruction Malignant neoplasm of overlapping sites of bladder (CMS-HCC) Cerebrovascular disease- Primary Unspecified cerebrovascular disease Coronary artery disease involving [place] coronary artery of [place] heart without angina pectoris Paroxysmal atrial fibrillation (CMS-HCC) Atrial fibrillation detention (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 Long-term (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 documented in this encounter [facility]* Diagnosis Urinary incontinence, unspecified type- Primary documented in this encounter [facility]* Diagnosis Elevated PSA- Primary Elevated prostate specific antigen (PSA) Elevated PSA- Primary Elevated prostate specific antigen (PSA) Elevated PSA- Primary Elevated prostate specific antigen (PSA) Elevated PSA- Primary Elevated prostate specific antigen (PSA) Malignant neoplasm of overlapping sites of bladder (CMS-HCC)- Primary Elevated PSA Elevated prostate specific antigen (PSA) Malignant neoplasm of overlapping sites of bladder (CMS-HCC)- Primary Elevated PSA- Primary Elevated prostate specific antigen (PSA) Malignant neoplasm of overlapping sites of bladder (CMS-HCC) Elevated PSA- Primary Elevated prostate specific antigen (PSA) Malignant neoplasm of overlapping sites of bladder (CMS-HCC) Elevated PSA- Primary Elevated prostate specific antigen (PSA) Malignant neoplasm of overlapping sites of bladder (CMS-HCC) Urinary tract infection without hematuria, site unspecified- Primary Benign prostatic hyperplasia with urinary obstruction Malignant neoplasm of overlapping sites of bladder (CMS-HCC) Malignant neoplasm of overlapping sites of bladder (CMS-HCC)- Primary Benign prostatic hyperplasia with urinary obstruction- Primary Urinary incontinence, unspecified type- Primary Benign prostatic hyperplasia with urinary obstruction Malignant neoplasm of overlapping sites of bladder (CMS-HCC) Cerebrovascular disease- Primary Unspecified cerebrovascular disease Coronary artery disease involving [place] coronary artery of [place] heart without angina pectoris Paroxysmal atrial fibrillation (CMS-HCC) 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* Diagnosis Elevated PSA- Primary Elevated prostate specific antigen (PSA) Elevated PSA- Primary Elevated prostate specific antigen (PSA) Elevated PSA- Primary Elevated prostate specific antigen (PSA) Elevated PSA- Primary Elevated prostate specific antigen (PSA) Malignant neoplasm of overlapping sites of bladder (CMS-HCC)- Primary Elevated PSA Elevated prostate specific antigen (PSA) Malignant neoplasm of overlapping sites of bladder (CMS-HCC)- Primary Elevated PSA- Primary Elevated prostate specific antigen (PSA) Malignant neoplasm of overlapping sites of bladder (CMS-HCC) Elevated PSA- Primary Elevated prostate specific antigen (PSA) Malignant neoplasm of overlapping sites of bladder (CMS-HCC) Elevated PSA- Primary Elevated prostate specific antigen (PSA) Malignant neoplasm of overlapping sites of bladder (CMS-HCC) Urinary tract infection without hematuria, site unspecified- Primary Benign prostatic hyperplasia with urinary obstruction Malignant neoplasm of overlapping sites of bladder (CMS-HCC) Malignant neoplasm of overlapping sites of bladder (CMS-HCC)- Primary Benign prostatic hyperplasia with urinary obstruction- Primary Urinary incontinence, unspecified type- Primary Benign prostatic hyperplasia with urinary obstruction Malignant neoplasm of overlapping sites of bladder (CMS-HCC) HFrEF (heart failure with reduced ejection fraction) (CMS-HCC) 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* Diagnosis Elevated PSA- Primary Elevated prostate specific antigen (PSA) Elevated PSA- Primary Elevated prostate specific antigen (PSA) Elevated PSA- Primary Elevated prostate specific antigen (PSA) Elevated PSA- Primary Elevated prostate specific antigen (PSA) Malignant neoplasm of overlapping sites of bladder (CMS-HCC)- Primary Elevated PSA Elevated prostate specific antigen (PSA) Malignant neoplasm of overlapping sites of bladder (CMS-HCC)- Primary Elevated PSA- Primary Elevated prostate specific antigen (PSA) Malignant neoplasm of overlapping sites of bladder (CMS-HCC) Elevated PSA- Primary Elevated prostate specific antigen (PSA) Malignant neoplasm of overlapping sites of bladder (CMS-HCC) Elevated PSA- Primary Elevated prostate specific antigen (PSA) Malignant neoplasm of overlapping sites of bladder (CMS-HCC) Urinary tract infection without hematuria, site unspecified- Primary Benign prostatic hyperplasia with urinary obstruction Malignant neoplasm of overlapping sites of bladder (CMS-HCC) Malignant neoplasm of overlapping sites of bladder (CMS-HCC)- Primary Benign prostatic hyperplasia with urinary obstruction- Primary Urinary incontinence, unspecified type- Primary Benign prostatic hyperplasia with urinary obstruction Malignant neoplasm of overlapping sites of bladder (CMS-HCC) Cerebrovascular disease- Primary Unspecified cerebrovascular disease Coronary artery disease involving [place] coronary artery of [place] heart without angina pectoris Paroxysmal atrial fibrillation (CMS-HCC) 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* Diagnosis Elevated PSA- Primary Elevated prostate specific antigen (PSA) Elevated PSA- Primary Elevated prostate specific antigen (PSA) Elevated PSA- Primary Elevated prostate specific antigen (PSA) Elevated PSA- Primary Elevated prostate specific antigen (PSA) Malignant neoplasm of overlapping sites of bladder (CMS-HCC)- Primary Elevated PSA Elevated prostate specific antigen (PSA) Malignant neoplasm of overlapping sites of bladder (CMS-HCC)- Primary Elevated PSA- Primary Elevated prostate specific antigen (PSA) Malignant neoplasm of overlapping sites of bladder (CMS-HCC) Elevated PSA- Primary Elevated prostate specific antigen (PSA) Malignant neoplasm of overlapping sites of bladder (CMS-HCC) Elevated PSA- Primary Elevated prostate specific antigen (PSA) Malignant neoplasm of overlapping sites of bladder (CMS-HCC) Urinary tract infection without hematuria, site unspecified- Primary Benign prostatic hyperplasia with urinary obstruction Malignant neoplasm of overlapping sites of bladder (CMS-HCC) Malignant neoplasm of overlapping sites of bladder (CMS-HCC)- Primary Benign prostatic hyperplasia with urinary obstruction- Primary Urinary incontinence, unspecified type- Primary Benign prostatic hyperplasia with urinary obstruction Malignant neoplasm of overlapping sites of bladder (CMS-HCC) Cerebrovascular disease- Primary Unspecified cerebrovascular disease Coronary artery disease involving [place] coronary artery of [place] heart without angina pectoris Paroxysmal atrial fibrillation (CMS-HCC) Atrial fibrillation detention (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 Long-term (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 documented in this encounter [facility]* Diagnosis Elevated PSA- Primary Elevated prostate specific antigen (PSA) Elevated PSA- Primary Elevated prostate specific antigen (PSA) Elevated PSA- Primary Elevated prostate specific antigen (PSA) Elevated PSA- Primary Elevated prostate specific antigen (PSA) Malignant neoplasm of overlapping sites of bladder (CMS-HCC)- Primary Elevated PSA Elevated prostate specific antigen (PSA) Malignant neoplasm of overlapping sites of bladder (CMS-HCC)- Primary Elevated PSA- Primary Elevated prostate specific antigen (PSA) Malignant neoplasm of overlapping sites of bladder (CMS-HCC) Elevated PSA- Primary Elevated prostate specific antigen (PSA) Malignant neoplasm of overlapping sites of bladder (CMS-HCC) Elevated PSA- Primary Elevated prostate specific antigen (PSA) Malignant neoplasm of overlapping sites of bladder (CMS-HCC) Urinary tract infection without hematuria, site unspecified- Primary Benign prostatic hyperplasia with urinary obstruction Malignant neoplasm of overlapping sites of bladder (CMS-HCC) Malignant neoplasm of overlapping sites of bladder (CMS-HCC)- Primary Benign prostatic hyperplasia with urinary obstruction- Primary Urinary incontinence, unspecified type- Primary Benign prostatic hyperplasia with urinary obstruction Malignant neoplasm of overlapping sites of bladder (CMS-HCC) Coronary artery disease involving [place] coronary artery of [place] heart without angina pectoris- Primary 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* Diagnosis Elevated PSA- Primary Elevated prostate specific antigen (PSA) Elevated PSA- Primary Elevated prostate specific antigen (PSA) Elevated PSA- Primary Elevated prostate specific antigen (PSA) Elevated PSA- Primary Elevated prostate specific antigen (PSA) Malignant neoplasm of overlapping sites of bladder (CMS-HCC)- Primary Elevated PSA Elevated prostate specific antigen (PSA) Malignant neoplasm of overlapping sites of bladder (CMS-HCC)- Primary Elevated PSA- Primary Elevated prostate specific antigen (PSA) Malignant neoplasm of overlapping sites of bladder (CMS-HCC) Elevated PSA- Primary Elevated prostate specific antigen (PSA) Malignant neoplasm of overlapping sites of bladder (CMS-HCC) Elevated PSA- Primary Elevated prostate specific antigen (PSA) Malignant neoplasm of overlapping sites of bladder (CMS-HCC) Urinary tract infection without hematuria, site unspecified- Primary Benign prostatic hyperplasia with urinary obstruction Malignant neoplasm of overlapping sites of bladder (CMS-HCC) Malignant neoplasm of overlapping sites of bladder (CMS-HCC)- Primary Benign prostatic hyperplasia with urinary obstruction- Primary Urinary incontinence, unspecified type- Primary Benign prostatic hyperplasia with urinary obstruction Malignant neoplasm of overlapping sites of bladder (CMS-HCC) Cerebrovascular disease- Primary Unspecified cerebrovascular disease Coronary artery disease involving [place] coronary artery of [place] heart without angina pectoris Paroxysmal atrial fibrillation (CMS-HCC) 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* Diagnosis Elevated PSA- Primary Elevated prostate specific antigen (PSA) Elevated PSA- Primary Elevated prostate specific antigen (PSA) Elevated PSA- Primary Elevated prostate specific antigen (PSA) Elevated PSA- Primary Elevated prostate specific antigen (PSA) Malignant neoplasm of overlapping sites of bladder (CMS-HCC)- Primary Elevated PSA Elevated prostate specific antigen (PSA) Malignant neoplasm of overlapping sites of bladder (CMS-HCC)- Primary Elevated PSA- Primary Elevated prostate specific antigen (PSA) Malignant neoplasm of overlapping sites of bladder (CMS-HCC) Elevated PSA- Primary Elevated prostate specific antigen (PSA) Malignant neoplasm of overlapping sites of bladder (CMS-HCC) Elevated PSA- Primary Elevated prostate specific antigen (PSA) Malignant neoplasm of overlapping sites of bladder (CMS-HCC) Urinary tract infection without hematuria, site unspecified- Primary Benign prostatic hyperplasia with urinary obstruction Malignant neoplasm of overlapping sites of bladder (CMS-HCC) Malignant neoplasm of overlapping sites of bladder (CMS-HCC)- Primary Benign prostatic hyperplasia with urinary obstruction- Primary Urinary incontinence, unspecified type- Primary Benign prostatic hyperplasia with urinary obstruction Malignant neoplasm of overlapping sites of bladder (CMS-HCC) 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 SystemEvaluation note* Diagnosis Elevated PSA- Primary Elevated prostate specific antigen (PSA) Elevated PSA- Primary Elevated prostate specific antigen (PSA) Elevated PSA- Primary Elevated prostate specific antigen (PSA) Elevated PSA- Primary Elevated prostate specific antigen (PSA) Malignant neoplasm of overlapping sites of bladder (CMS-HCC)- Primary Elevated PSA Elevated prostate specific antigen (PSA) Malignant neoplasm of overlapping sites of bladder (CMS-HCC)- Primary Elevated PSA- Primary Elevated prostate specific antigen (PSA) Malignant neoplasm of overlapping sites of bladder (CMS-HCC) Elevated PSA- Primary Elevated prostate specific antigen (PSA) Malignant neoplasm of overlapping sites of bladder (CMS-HCC) Elevated PSA- Primary Elevated prostate specific antigen (PSA) Malignant neoplasm of overlapping sites of bladder (CMS-HCC) Urinary tract infection without hematuria, site unspecified- Primary Benign prostatic hyperplasia with urinary obstruction Malignant neoplasm of overlapping sites of bladder (CMS-HCC) Malignant neoplasm of overlapping sites of bladder (CMS-HCC)- Primary Benign prostatic hyperplasia with urinary obstruction- Primary Urinary incontinence, unspecified type- Primary Benign prostatic hyperplasia with urinary obstruction Malignant neoplasm of overlapping sites of bladder (CMS-HCC) Cerebrovascular disease- Primary Unspecified cerebrovascular disease Coronary artery disease involving [place] coronary artery of [place] heart without angina pectoris Paroxysmal atrial fibrillation (CMS-HCC) 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* Diagnosis Elevated PSA- Primary Elevated prostate specific antigen (PSA) Elevated PSA- Primary Elevated prostate specific antigen (PSA) Elevated PSA- Primary Elevated prostate specific antigen (PSA) Elevated PSA- Primary Elevated prostate specific antigen (PSA) Malignant neoplasm of overlapping sites of bladder (CMS-HCC)- Primary Elevated PSA Elevated prostate specific antigen (PSA) Malignant neoplasm of overlapping sites of bladder (CMS-HCC)- Primary Elevated PSA- Primary Elevated prostate specific antigen (PSA) Malignant neoplasm of overlapping sites of bladder (CMS-HCC) Elevated PSA- Primary Elevated prostate specific antigen (PSA) Malignant neoplasm of overlapping sites of bladder (CMS-HCC) Elevated PSA- Primary Elevated prostate specific antigen (PSA) Malignant neoplasm of overlapping sites of bladder (CMS-HCC) Urinary tract infection without hematuria, site unspecified- Primary Benign prostatic hyperplasia with urinary obstruction Malignant neoplasm of overlapping sites of bladder (CMS-HCC) Malignant neoplasm of overlapping sites of bladder (CMS-HCC)- Primary Benign prostatic hyperplasia with urinary obstruction- Primary Urinary incontinence, unspecified type- Primary Benign prostatic hyperplasia with urinary obstruction Malignant neoplasm of overlapping sites of bladder (CMS-HCC) 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* Diagnosis Elevated PSA- Primary Elevated prostate specific antigen (PSA) Elevated PSA- Primary Elevated prostate specific antigen (PSA) Elevated PSA- Primary Elevated prostate specific antigen (PSA) Elevated PSA- Primary Elevated prostate specific antigen (PSA) Malignant neoplasm of overlapping sites of bladder (CMS-HCC)- Primary Elevated PSA Elevated prostate specific antigen (PSA) Malignant neoplasm of overlapping sites of bladder (CMS-HCC)- Primary Elevated PSA- Primary Elevated prostate specific antigen (PSA) Malignant neoplasm of overlapping sites of bladder (CMS-HCC) Elevated PSA- Primary Elevated prostate specific antigen (PSA) Malignant neoplasm of overlapping sites of bladder (CMS-HCC) Elevated PSA- Primary Elevated prostate specific antigen (PSA) Malignant neoplasm of overlapping sites of bladder (CMS-HCC) Urinary tract infection without hematuria, site unspecified- Primary Benign prostatic hyperplasia with urinary obstruction Malignant neoplasm of overlapping sites of bladder (CMS-HCC) Malignant neoplasm of overlapping sites of bladder (CMS-HCC)- Primary Benign prostatic hyperplasia with urinary obstruction- Primary Urinary incontinence, unspecified type- Primary Benign prostatic hyperplasia with urinary obstruction Malignant neoplasm of overlapping sites of bladder (CMS-HCC) 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* Diagnosis Elevated PSA- Primary Elevated prostate specific antigen (PSA) Elevated PSA- Primary Elevated prostate specific antigen (PSA) Elevated PSA- Primary Elevated prostate specific antigen (PSA) Elevated PSA- Primary Elevated prostate specific antigen (PSA) Malignant neoplasm of overlapping sites of bladder (CMS-HCC)- Primary Elevated PSA Elevated prostate specific antigen (PSA) Malignant neoplasm of overlapping sites of bladder (CMS-HCC)- Primary Elevated PSA- Primary Elevated prostate specific antigen (PSA) Malignant neoplasm of overlapping sites of bladder (CMS-HCC) Elevated PSA- Primary Elevated prostate specific antigen (PSA) Malignant neoplasm of overlapping sites of bladder (CMS-HCC) Elevated PSA- Primary Elevated prostate specific antigen (PSA) Malignant neoplasm of overlapping sites of bladder (CMS-HCC) Urinary tract infection without hematuria, site unspecified- Primary Benign prostatic hyperplasia with urinary obstruction Malignant neoplasm of overlapping sites of bladder (CMS-HCC) Malignant neoplasm of overlapping sites of bladder (CMS-HCC)- Primary Benign prostatic hyperplasia with urinary obstruction- Primary Urinary incontinence, unspecified type- Primary Benign prostatic hyperplasia with urinary obstruction Malignant neoplasm of overlapping sites of bladder (CMS-HCC) Malignant neoplasm of overlapping sites of bladder (CMS-HCC)- Primary Occult blood positive stool Nonspecific abnormal finding in stool contents Acute on chronic diastolic congestive heart failure (CMS-HCC) Hydroureter Benign prostatic hyperplasia with urinary obstruction Elevated PSA Elevated prostate specific antigen (PSA) Urinary incontinence- Primary Unspecified urinary incontinence 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* Diagnosis Elevated PSA- Primary Elevated prostate specific antigen (PSA) Elevated PSA- Primary Elevated prostate specific antigen (PSA) Elevated PSA- Primary Elevated prostate specific antigen (PSA) Elevated PSA- Primary Elevated prostate specific antigen (PSA) Malignant neoplasm of overlapping sites of bladder (CMS-HCC)- Primary Elevated PSA Elevated prostate specific antigen (PSA) Malignant neoplasm of overlapping sites of bladder (CMS-HCC)- Primary Elevated PSA- Primary Elevated prostate specific antigen (PSA) Malignant neoplasm of overlapping sites of bladder (CMS-HCC) Elevated PSA- Primary Elevated prostate specific antigen (PSA) Malignant neoplasm of overlapping sites of bladder (CMS-HCC) Elevated PSA- Primary Elevated prostate specific antigen (PSA) Malignant neoplasm of overlapping sites of bladder (CMS-HCC) Urinary tract infection without hematuria, site unspecified- Primary Benign prostatic hyperplasia with urinary obstruction Malignant neoplasm of overlapping sites of bladder (CMS-HCC) Malignant neoplasm of overlapping sites of bladder (CMS-HCC)- Primary Benign prostatic hyperplasia with urinary obstruction- Primary Urinary incontinence, unspecified type- Primary Benign prostatic hyperplasia with urinary obstruction Malignant neoplasm of overlapping sites of bladder (CMS-HCC) Malignant neoplasm of overlapping sites of bladder (CMS-HCC)- Primary Occult blood positive stool Nonspecific abnormal finding in stool contents Acute on chronic diastolic congestive heart failure (CMS-HCC) Hydroureter Benign prostatic hyperplasia with urinary obstruction Elevated PSA Elevated prostate specific antigen (PSA) Paroxysmal atrial fibrillation (CMS-HCC)- Primary Atrial fibrillation Coronary artery disease involving [place] coronary artery of [place] heart without angina pectoris Presence of coronary angioplasty implant and graft Primary hypertension Unspecified essential hypertension 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* Diagnosis Elevated PSA- Primary Elevated prostate specific antigen (PSA) Elevated PSA- Primary Elevated prostate specific antigen (PSA) Elevated PSA- Primary Elevated prostate specific antigen (PSA) Elevated PSA- Primary Elevated prostate specific antigen (PSA) Malignant neoplasm of overlapping sites of bladder (CMS-HCC)- Primary Elevated PSA Elevated prostate specific antigen (PSA) Malignant neoplasm of overlapping sites of bladder (CMS-HCC)- Primary Elevated PSA- Primary Elevated prostate specific antigen (PSA) Malignant neoplasm of overlapping sites of bladder (CMS-HCC) Elevated PSA- Primary Elevated prostate specific antigen (PSA) Malignant neoplasm of overlapping sites of bladder (CMS-HCC) Elevated PSA- Primary Elevated prostate specific antigen (PSA) Malignant neoplasm of overlapping sites of bladder (CMS-HCC) Urinary tract infection without hematuria, site unspecified- Primary Benign prostatic hyperplasia with urinary obstruction Malignant neoplasm of overlapping sites of bladder (CMS-HCC) Malignant neoplasm of overlapping sites of bladder (CMS-HCC)- Primary Benign prostatic hyperplasia with urinary obstruction- Primary Urinary incontinence, unspecified type- Primary Benign prostatic hyperplasia with urinary obstruction Malignant neoplasm of overlapping sites of bladder (CMS-HCC) Malignant neoplasm of overlapping sites of bladder (CMS-HCC)- Primary Occult blood positive stool Nonspecific abnormal finding in stool contents Acute on chronic diastolic congestive heart failure (CMS-HCC) Hydroureter Benign prostatic hyperplasia with urinary obstruction Elevated PSA Elevated prostate specific antigen (PSA) Cerebrovascular disease- Primary Unspecified cerebrovascular disease Coronary artery disease involving [place] coronary artery of [place] heart without angina pectoris Paroxysmal atrial fibrillation (CMS-HCC) 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* Diagnosis Type 2 diabetes mellitus with diabetic neuropathy, with long-term current use of insulin (CMS/HCC)- Primary Acute on chronic diastolic congestive heart failure (CMS/HCC) Coronary arteriosclerosis in [place] artery (CMS/HCC) Coronary artery disease involving [place] coronary artery of [place] heart without angina pectoris (CMS/HCC) Paroxysmal atrial fibrillation (CMS/HCC) Atrial fibrillation LOUISA (acute kidney injury) (CMS/HCC) Iron deficiency anemia due to chronic blood loss Iron deficiency anemia secondary to blood loss (chronic) Other acute gastritis with hemorrhage Morbid obesity (CMS/HCC) Morbid obesity Mixed hyperlipidemia (CMS/HCC) Mixed hyperlipidemia Urinary incontinence, unspecified type Type 2 diabetes mellitus with diabetic chronic kidney disease (CMS/HCC) Chronic kidney disease, stage 3a (HCC) (CMS/HCC) Other thrombophilia (CMS/HCC) Gastric ulcer, unspecified chronicity, unspecified whether gastric ulcer hemorrhage or perforation present [facility] Elevated PSA- Primary Elevated prostate specific antigen (PSA) Elevated PSA- Primary Elevated prostate specific antigen (PSA) Elevated PSA- Primary Elevated prostate specific antigen (PSA) Elevated PSA- Primary Elevated prostate specific antigen (PSA) Malignant neoplasm of overlapping sites of bladder (CMS-HCC)- Primary Elevated PSA Elevated prostate specific antigen (PSA) Malignant neoplasm of overlapping sites of bladder (CMS-HCC)- Primary Elevated PSA- Primary Elevated prostate specific antigen (PSA) Malignant neoplasm of overlapping sites of bladder (CMS-HCC) Elevated PSA- Primary Elevated prostate specific antigen (PSA) Malignant neoplasm of overlapping sites of bladder (CMS-HCC) Elevated PSA- Primary Elevated prostate specific antigen (PSA) Malignant neoplasm of overlapping sites of bladder (CMS-HCC) Urinary tract infection without hematuria, site unspecified- Primary Benign prostatic hyperplasia with urinary obstruction Malignant neoplasm of overlapping sites of bladder (CMS-HCC) Malignant neoplasm of overlapping sites of bladder (CMS-HCC)- Primary Benign prostatic hyperplasia with urinary obstruction- Primary Urinary incontinence, unspecified type- Primary Benign prostatic hyperplasia with urinary obstruction Malignant neoplasm of overlapping sites of bladder (CMS-HCC) Malignant neoplasm of overlapping sites of bladder (CMS-HCC)- Primary Occult blood positive stool Nonspecific abnormal finding in stool contents Acute on chronic diastolic congestive heart failure (CMS-HCC) Hydroureter Benign prostatic hyperplasia with urinary obstruction Elevated PSA Elevated prostate specific antigen (PSA) Cerebrovascular disease- Primary Unspecified cerebrovascular disease Athscl heart disease of [place] coronary artery w/o ang pctrs Paroxysmal atrial fibrillation (CMS-HCC) 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* Diagnosis Elevated PSA- Primary Elevated prostate specific antigen (PSA) Elevated PSA- Primary Elevated prostate specific antigen (PSA) Elevated PSA- Primary Elevated prostate specific antigen (PSA) Elevated PSA- Primary Elevated prostate specific antigen (PSA) Malignant neoplasm of overlapping sites of bladder (CMS-HCC)- Primary Elevated PSA Elevated prostate specific antigen (PSA) Malignant neoplasm of overlapping sites of bladder (CMS-HCC)- Primary Elevated PSA- Primary Elevated prostate specific antigen (PSA) Malignant neoplasm of overlapping sites of bladder (CMS-HCC) Elevated PSA- Primary Elevated prostate specific antigen (PSA) Malignant neoplasm of overlapping sites of bladder (CMS-HCC) Elevated PSA- Primary Elevated prostate specific antigen (PSA) Malignant neoplasm of overlapping sites of bladder (CMS-HCC) Urinary tract infection without hematuria, site unspecified- Primary Benign prostatic hyperplasia with urinary obstruction Malignant neoplasm of overlapping sites of bladder (CMS-HCC) Malignant neoplasm of overlapping sites of bladder (CMS-HCC)- Primary Benign prostatic hyperplasia with urinary obstruction- Primary Urinary incontinence, unspecified type- Primary Benign prostatic hyperplasia with urinary obstruction Malignant neoplasm of overlapping sites of bladder (CMS-HCC) Malignant neoplasm of overlapping sites of bladder (CMS-HCC)- Primary Occult blood positive stool Nonspecific abnormal finding in stool contents Acute on chronic diastolic congestive heart failure (CMS-HCC) Hydroureter Benign prostatic hyperplasia with urinary obstruction Elevated PSA Elevated prostate specific antigen (PSA) Closed fracture of multiple ribs of right side with routine healing, subsequent encounter- Primary documented in this encounter [facility]* Diagnosis Elevated PSA- Primary Elevated prostate specific antigen (PSA) Elevated PSA- Primary Elevated prostate specific antigen (PSA) Elevated PSA- Primary Elevated prostate specific antigen (PSA) Elevated PSA- Primary Elevated prostate specific antigen (PSA) Malignant neoplasm of overlapping sites of bladder (CMS-HCC)- Primary Elevated PSA Elevated prostate specific antigen (PSA) Malignant neoplasm of overlapping sites of bladder (CMS-HCC)- Primary Elevated PSA- Primary Elevated prostate specific antigen (PSA) Malignant neoplasm of overlapping sites of bladder (CMS-HCC) Elevated PSA- Primary Elevated prostate specific antigen (PSA) Malignant neoplasm of overlapping sites of bladder (CMS-HCC) Elevated PSA- Primary Elevated prostate specific antigen (PSA) Malignant neoplasm of overlapping sites of bladder (CMS-HCC) Urinary tract infection without hematuria, site unspecified- Primary Benign prostatic hyperplasia with urinary obstruction Malignant neoplasm of overlapping sites of bladder (CMS-HCC) Malignant neoplasm of overlapping sites of bladder (CMS-HCC)- Primary Benign prostatic hyperplasia with urinary obstruction- Primary Urinary incontinence, unspecified type- Primary Benign prostatic hyperplasia with urinary obstruction Malignant neoplasm of overlapping sites of bladder (CMS-HCC) Malignant neoplasm of overlapping sites of bladder (CMS-HCC)- Primary Occult blood positive stool Nonspecific abnormal finding in stool contents Acute on chronic diastolic congestive heart failure (CMS-HCC) Hydroureter Benign prostatic hyperplasia with urinary obstruction Elevated PSA Elevated prostate specific antigen (PSA) Cerebrovascular disease- Primary Unspecified cerebrovascular disease Athscl heart disease of [place] coronary artery w/o ang pctrs Paroxysmal atrial fibrillation (CMS-HCC) 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* Diagnosis Elevated PSA- Primary Elevated prostate specific antigen (PSA) Elevated PSA- Primary Elevated prostate specific antigen (PSA) Elevated PSA- Primary Elevated prostate specific antigen (PSA) Elevated PSA- Primary Elevated prostate specific antigen (PSA) Malignant neoplasm of overlapping sites of bladder (CMS-HCC)- Primary Elevated PSA Elevated prostate specific antigen (PSA) Malignant neoplasm of overlapping sites of bladder (CMS-HCC)- Primary Elevated PSA- Primary Elevated prostate specific antigen (PSA) Malignant neoplasm of overlapping sites of bladder (CMS-HCC) Elevated PSA- Primary Elevated prostate specific antigen (PSA) Malignant neoplasm of overlapping sites of bladder (CMS-HCC) Elevated PSA- Primary Elevated prostate specific antigen (PSA) Malignant neoplasm of overlapping sites of bladder (CMS-HCC) Urinary tract infection without hematuria, site unspecified- Primary Benign prostatic hyperplasia with urinary obstruction Malignant neoplasm of overlapping sites of bladder (CMS-HCC) Malignant neoplasm of overlapping sites of bladder (CMS-HCC)- Primary Benign prostatic hyperplasia with urinary obstruction- Primary Urinary incontinence, unspecified type- Primary Benign prostatic hyperplasia with urinary obstruction Malignant neoplasm of overlapping sites of bladder (CMS-HCC) Malignant neoplasm of overlapping sites of bladder (CMS-HCC)- Primary Occult blood positive stool Nonspecific abnormal finding in stool contents Acute on chronic diastolic congestive heart failure (CMS-HCC) Hydroureter Benign prostatic hyperplasia with urinary obstruction Elevated PSA Elevated prostate specific antigen (PSA) 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* Diagnosis Elevated PSA- Primary Elevated prostate specific antigen (PSA) Elevated PSA- Primary Elevated prostate specific antigen (PSA) Elevated PSA- Primary Elevated prostate specific antigen (PSA) Elevated PSA- Primary Elevated prostate specific antigen (PSA) Malignant neoplasm of overlapping sites of bladder (CMS-HCC)- Primary Elevated PSA Elevated prostate specific antigen (PSA) Malignant neoplasm of overlapping sites of bladder (CMS-HCC)- Primary Elevated PSA- Primary Elevated prostate specific antigen (PSA) Malignant neoplasm of overlapping sites of bladder (CMS-HCC) Elevated PSA- Primary Elevated prostate specific antigen (PSA) Malignant neoplasm of overlapping sites of bladder (CMS-HCC) Elevated PSA- Primary Elevated prostate specific antigen (PSA) Malignant neoplasm of overlapping sites of bladder (CMS-HCC) Urinary tract infection without hematuria, site unspecified- Primary Benign prostatic hyperplasia with urinary obstruction Malignant neoplasm of overlapping sites of bladder (CMS-HCC) Malignant neoplasm of overlapping sites of bladder (CMS-HCC)- Primary Benign prostatic hyperplasia with urinary obstruction- Primary Urinary incontinence, unspecified type- Primary Benign prostatic hyperplasia with urinary obstruction Malignant neoplasm of overlapping sites of bladder (CMS-HCC) Malignant neoplasm of overlapping sites of bladder (CMS-HCC)- Primary Occult blood positive stool Nonspecific abnormal finding in stool contents Acute on chronic diastolic congestive heart failure (CMS-HCC) Hydroureter Benign prostatic hyperplasia with urinary obstruction Elevated PSA Elevated prostate specific antigen (PSA) Cerebrovascular disease- Primary Unspecified cerebrovascular disease Athscl heart disease of [place] coronary artery w/o ang pctrs Paroxysmal atrial fibrillation (CMS-HCC) Atrial fibrillation detention (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 Long-term (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 documented in this encounter [facility]* Diagnosis Type 2 diabetes mellitus with diabetic neuropathy, with long-term current use of insulin (CMS/HCC)- Primary Acute on chronic diastolic congestive heart failure (CMS/HCC) Coronary arteriosclerosis in [place] artery (CMS/HCC) Coronary artery disease involving [place] coronary artery of [place] heart without angina pectoris (CMS/HCC) Paroxysmal atrial fibrillation (CMS/HCC) Atrial fibrillation LOUISA (acute kidney injury) (CMS/HCC) Iron deficiency anemia due to chronic blood loss Iron deficiency anemia secondary to blood loss (chronic) Other acute gastritis with hemorrhage Morbid obesity (CMS/HCC) Morbid obesity Mixed hyperlipidemia (CMS/HCC) Mixed hyperlipidemia Urinary incontinence, unspecified type Type 2 diabetes mellitus with diabetic chronic kidney disease (CMS/HCC) Chronic kidney disease, stage 3a (HCC) (CMS/HCC) Other thrombophilia Pleural effusion, bilateral- Primary Unspecified pleural effusion Anemia, unspecified type Type 2 diabetes mellitus with diabetic neuropathy, with long-term current use of insulin (CMS/HCC) Multiple closed fractures of ribs of both sides with routine healing, subsequent encounter Paroxysmal atrial fibrillation (CMS/HCC) Atrial fibrillation Pressure injury of left buttock, stage 1 Malignant neoplasm of bladder, unspecified Type 2 diabetes mellitus with diabetic chronic kidney disease (CMS/HCC) Chronic kidney disease, stage 3a (HCC) (CMS/HCC) Pleural effusion, bilateral Unspecified pleural effusion documented in this encounter [facility]* Diagnosis Elevated PSA- Primary Elevated prostate specific antigen (PSA) Elevated PSA- Primary Elevated prostate specific antigen (PSA) Elevated PSA- Primary Elevated prostate specific antigen (PSA) Elevated PSA- Primary Elevated prostate specific antigen (PSA) Malignant neoplasm of overlapping sites of bladder (CMS-HCC)- Primary Elevated PSA Elevated prostate specific antigen (PSA) Malignant neoplasm of overlapping sites of bladder (CMS-HCC)- Primary Elevated PSA- Primary Elevated prostate specific antigen (PSA) Malignant neoplasm of overlapping sites of bladder (CMS-HCC) Elevated PSA- Primary Elevated prostate specific antigen (PSA) Malignant neoplasm of overlapping sites of bladder (CMS-HCC) Elevated PSA- Primary Elevated prostate specific antigen (PSA) Malignant neoplasm of overlapping sites of bladder (CMS-HCC) Urinary tract infection without hematuria, site unspecified- Primary Benign prostatic hyperplasia with urinary obstruction Malignant neoplasm of overlapping sites of bladder (CMS-HCC) Malignant neoplasm of overlapping sites of bladder (CMS-HCC)- Primary Benign prostatic hyperplasia with urinary obstruction- Primary Urinary incontinence, unspecified type- Primary Benign prostatic hyperplasia with urinary obstruction Malignant neoplasm of overlapping sites of bladder (CMS-HCC) Malignant neoplasm of overlapping sites of bladder (CMS-HCC)- Primary Occult blood positive stool Nonspecific abnormal finding in stool contents Acute on chronic diastolic congestive heart failure (CMS-HCC) Hydroureter Benign prostatic hyperplasia with urinary obstruction Elevated PSA Elevated prostate specific antigen (PSA) Mixed hyperlipidemia- Primary [facility] Diagnosis Elevated PSA- Primary Elevated prostate specific antigen (PSA) Elevated PSA- Primary Elevated prostate specific antigen (PSA) Elevated PSA- Primary Elevated prostate specific antigen (PSA) Elevated PSA- Primary Elevated prostate specific antigen (PSA) Malignant neoplasm of overlapping sites of bladder (CMS-HCC)- Primary Elevated PSA Elevated prostate specific antigen (PSA) Malignant neoplasm of overlapping sites of bladder (CMS-HCC)- Primary Elevated PSA- Primary Elevated prostate specific antigen (PSA) Malignant neoplasm of overlapping sites of bladder (CMS-HCC) Elevated PSA- Primary Elevated prostate specific antigen (PSA) Malignant neoplasm of overlapping sites of bladder (CMS-HCC) Elevated PSA- Primary Elevated prostate specific antigen (PSA) Malignant neoplasm of overlapping sites of bladder (CMS-HCC) Urinary tract infection without hematuria, site unspecified- Primary Benign prostatic hyperplasia with urinary obstruction Malignant neoplasm of overlapping sites of bladder (CMS-HCC) Malignant neoplasm of overlapping sites of bladder (CMS-HCC)- Primary Benign prostatic hyperplasia with urinary obstruction- Primary Urinary incontinence, unspecified type- Primary Benign prostatic hyperplasia with urinary obstruction Malignant neoplasm of overlapping sites of bladder (CMS-HCC) Malignant neoplasm of overlapping sites of bladder (CMS-HCC)- Primary Occult blood positive stool Nonspecific abnormal finding in stool contents Acute on chronic diastolic congestive heart failure (CMS-HCC) Hydroureter Benign prostatic hyperplasia with urinary obstruction Elevated PSA Elevated prostate specific antigen (PSA) Malignant neoplasm of overlapping sites of bladder (CMS-HCC)- Primary Elevated PSA Elevated prostate specific antigen (PSA) documented in this [facility]* Diagnosis Elevated PSA- Primary Elevated prostate specific antigen (PSA) Elevated PSA- Primary Elevated prostate specific antigen (PSA) Elevated PSA- Primary Elevated prostate specific antigen (PSA) Elevated PSA- Primary Elevated prostate specific antigen (PSA) Malignant neoplasm of overlapping sites of bladder (CMS-HCC)- Primary Elevated PSA Elevated prostate specific antigen (PSA) Malignant neoplasm of overlapping sites of bladder (CMS-HCC)- Primary Elevated PSA- Primary Elevated prostate specific antigen (PSA) Malignant neoplasm of overlapping sites of bladder (CMS-HCC) Elevated PSA- Primary Elevated prostate specific antigen (PSA) Malignant neoplasm of overlapping sites of bladder (CMS-HCC) Elevated PSA- Primary Elevated prostate specific antigen (PSA) Malignant neoplasm of overlapping sites of bladder (CMS-HCC) Urinary tract infection without hematuria, site unspecified- Primary Benign prostatic hyperplasia with urinary obstruction Malignant neoplasm of overlapping sites of bladder (CMS-HCC) Malignant neoplasm of overlapping sites of bladder (CMS-HCC)- Primary Benign prostatic hyperplasia with urinary obstruction- Primary Urinary incontinence, unspecified type- Primary Benign prostatic hyperplasia with urinary obstruction Malignant neoplasm of overlapping sites of bladder (CMS-HCC) Malignant neoplasm of overlapping sites of bladder (CMS-HCC)- Primary Occult blood positive stool Nonspecific abnormal finding in stool contents Acute on chronic diastolic congestive heart failure (CMS-HCC) Hydroureter Benign prostatic hyperplasia with urinary obstruction Elevated PSA Elevated prostate specific antigen (PSA) Cerebrovascular disease- Primary Unspecified cerebrovascular disease Athscl heart disease of [place] coronary artery w/o ang pctrs Paroxysmal atrial fibrillation (CMS-HCC) Atrial fibrillation detention (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 Long-term (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 documented in this [facility]* Diagnosis Type 2 diabetes mellitus with diabetic neuropathy, with long-term current use of insulin (CMS/HCC)- Primary Acute on chronic diastolic congestive heart failure (CMS/HCC) Coronary arteriosclerosis in [place] artery (CMS/HCC) Coronary artery disease involving [place] coronary artery of [place] heart without angina pectoris (CMS/HCC) Paroxysmal atrial fibrillation (CMS/HCC) Atrial fibrillation LOUISA (acute kidney injury) (CMS/HCC) Iron deficiency anemia due to chronic blood loss Iron deficiency anemia secondary to blood loss (chronic) Other acute gastritis with hemorrhage Morbid obesity (CMS/HCC) Morbid obesity Mixed hyperlipidemia (CMS/HCC) Mixed hyperlipidemia Urinary incontinence, unspecified type Type 2 diabetes mellitus with diabetic chronic kidney disease (CMS/HCC) Chronic kidney disease, stage 3a (HCC) (CMS/HCC) Other thrombophilia Acute left otitis media- Primary Bronchitis Bronchitis, not specified as acute or chronic documented in this encounter [facility]InstructionsNot on filedocumented in this encounterProMedica Health SystemInstructionsNot on filedocumented in this encounterProMedica Health SystemInstructionsNot on filedocumented in this encounterProMedica Health SystemInstructionsNot on filedocumented in this encounterProMedica Health System InstructionsNot on filedocumented in this encounterProMedica Health System InstructionsNot on filedocumented in this encounterProMedica Health System InstructionsNot on filedocumented in this encounterProMedica Health System InstructionsNot on filedocumented in this encounterProMedica Health [facility] InstructionsNot on filedocumented in this encounterProMedica Health System InstructionsNot on filedocumented in this encounterProMedica Health System InstructionsNot on filedocumented in this encounterProMedica Health System InstructionsNot on filedocumented in this encounterProMedica Health System InstructionsNot on filedocumented in this encounterProMedica Health System InstructionsNot on filedocumented in this encounterProMedica Health System InstructionsNot on filedocumented in this encounterProMedica Health System InstructionsNot on filedocumented in this encounterProMedica Health System InstructionsNot on filedocumented in this encounterProMedica Health System InstructionsNot on filedocumented in this encounterProMedica Health System InstructionsNot on filedocumented in this encounterProMedica Health System InstructionsNot on filedocumented in this encounterProMedica Health System InstructionsNot on filedocumented in this encounterProMedica Health System InstructionsNot on filedocumented in this encounterProMedica Health System InstructionsNot on filedocumented in this encounterProMedica Health System InstructionsNot on filedocumented in this encounterProMedica Health System InstructionsNot on filedocumented in this encounterProMedica Health System InstructionsNot on filedocumented in this encounterProMedica Health System InstructionsNot on filedocumented in this encounterProMedica Health System InstructionsNot on filedocumented in this encounterProMedica Health System InstructionsNot on filedocumented in this encounterProMedica Health System InstructionsNot on filedocumented in this encounterProMedica Health System InstructionsNot on filedocumented in this encounterProMedica Health System InstructionsNot on filedocumented in this encounterProMedica Health System InstructionsNot on filedocumented in this encounterProMedica Health System InstructionsNot on filedocumented in this encounterProMedica Health System InstructionsNot on filedocumented in this encounterProMedica Health System InstructionsNot on filedocumented in this encounterProMedica Health System InstructionsNot on filedocumented in this encounterProMedica Health System InstructionsNot on filedocumented in this encounterProMedica Health System InstructionsNot on filedocumented in this encounterProMedica Health System InstructionsNot on filedocumented in this encounterProMedica Health System InstructionsNot on filedocumented in this encounterProMedica Health System InstructionsNot on filedocumented in this encounterProMedica Health System InstructionsNot on filedocumented in this encounterProMedica Health System InstructionsNot on filedocumented in this encounterProMedica Health System InstructionsNot on filedocumented in this encounterProMedica Health System InstructionsNot on filedocumented in this encounterProMedica Health System InstructionsNot on filedocumented in this encounterProMedica Health System InstructionsNot on filedocumented in this encounterProMedica Health System InstructionsNot on filedocumented in this encounterProMedica Health System InstructionsNot on filedocumented in this encounterProMedica Health System InstructionsNot on filedocumented in this encounterProMedica Health SystemReason for referral (narrative)* Consultation (Routine) - Pending Review Specialty Diagnoses / Procedures Referred By Jermaine maurice Referred To Contact Heart Failure Services Diagnoses HFrEF (heart failure with reduced ejection fraction) ([facility] Timothy Kang MD [address] [place] [address] [facility] [address] [place] [phone] Referral ID Status Reason Start Date Expiration Date V isits Requested Visits Authorized [id number] Pending Review 02/02/2024 02/01/2025 1 1 * Cardiology (Routine) - Pending Review Specialty Diagnoses / Procedures Referred By Contac t Referred To Contact Diagnoses Chest pain, unspecified type Procedures Nuc stress Timothy Rudolph MD [address] [place] [address] [facility] [address] [place] [address] Phone: [phone] Referral ID Status Reason Start Date Expiration Date V isits Requested Visits Authorized [id number] Pending Review 02/02/2024 02/01/2025 5 5 [facility] Summary Purpose Family History No Family History Records FoundNo Family History Records FoundNo Family History Records FoundNo Family History Records FoundNo Family History Records FoundNo Family History Records Found Advance Directives Date Activated Date Inactivated Comments 12/26/2023 4:23 PM 01/02/2024 8:59 PM Date Activated Date Inactivated Comments 12/26/2023 2:56 PM 12/26/2023 4:23 PM Date Activated Date Inactivated Comments 12/26/2023 4:23 PM Documents on File Type Date Recorded 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 DNR Physician Order 01/22/2024 10:09 AM Date Activated Date Inactivated Comments 12/26/2023 4:23 PM 01/02/2024 8:59 PM Date Activated Date Inactivated Comments 12/26/2023 2:56 PM 12/26/2023 4:23 PM Documents on File Type Date Recorded 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 DNR Physician Order 01/22/2024 10:09 AM Date Activated Date Inactivated Comments 08/24/2024 10:26 PM Date Activated Date Inactivated Comments 12/26/2023 4:23 PM 01/02/2024 8:59 PM Date Activated Date Inactivated Comments 12/26/2023 2:56 PM 12/26/2023 4:23 PM Date Activated Date Inactivated Comments 08/24/2024 10:26 PM 09/06/2024 6:03 PM Date Activated Date Inactivated Comments 11/06/2024 7:35 AM Date Activated Date Inactivated Comments 08/24/2024 10:26 PM 09/06/2024 6:03 PM Date Activated Date Inactivated Comments 12/26/2023 4:23 PM 01/02/2024 8:59 PM Date Activated Date Inactivated Comments 12/26/2023 2:56 PM 12/26/2023 4:23 PM Documents on File Type Date Recorded 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 Advance Directive 11/09/2024 1:52 PM DNR DNR Physician Order 01/22/2024 10:09 AM Date Activated Date Inactivated Comments 11/09/2024 11:32 PM Date Activated Date Inactivated Comments 11/06/2024 7:35 AM 11/09/2024 11:15 PM Date Activated Date Inactivated Comments 08/24/2024 10:26 PM 09/06/2024 6:03 PM Date Activated Date Inactivated Comments 12/26/2023 4:23 PM 01/02/2024 8:59 PM Date Activated Date Inactivated Comments 12/26/2023 2:56 PM 12/26/2023 4:23 PM Documents on File Type Date Recorded 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 DNR Physician Order 11/29/2024 6:09 AM DNR Physician Order 11/23/2024 9:39 AM Advance Directive 11/09/2024 1:52 PM DNR DNR Physician Order 01/22/2024 10:09 AM Date Activated Date Inactivated Comments 11/09/2024 11:32 PM 11/20/2024 6:15 PM Reason for Referral Specialty Diagnoses / Procedures Referred By Contac t Referred To Contact Procedures Maxorb II Alginate Savannah Sanchez, [employer] [address] [place] [address] Referral ID Status Reason Start Date Expiration Date V isits Requested Visits Authorized [id number] Pending Review 11/07/2023 11/06/2024 1 1 Specialty Diagnoses / Procedures Referred By Contac t Referred To Contact Diagnoses Lymphedema Procedures Unna boSavannah Diallo, [employer]-[facility] [address] [place] [address] Referral ID Status Reason Start Date Expiration Date V isits Requested Visits Authorized [id number] Pending Review 11/12/2023 11/11/2024 1 1 Specialty Diagnoses / Procedures Referred By Contac t Referred To Contact Diagnoses Urinary incontinence, unspecified type Procedures Measure post void residual Fabián Bishop MD [address] [place] [id number] Referral ID Status Reason Start Date Expiration Date V isits Requested Visits Authorized [id number] Pending Review 12/10/2023 12/09/2024 1 1 Specialty Diagnoses / Procedures Referred By Contac t Referred To Contact Diagnoses Bulbous urethral stricture Procedures Void Trial Arash Drake MD [address] [place] [id number] Referral ID Status Reason Start Date Expiration Date V isits Requested Visits Authorized [id number] Pending Review 01/13/2024 2025 1 1 Specialty Diagnoses / Procedures Referred By Contac t Referred To Contact Diagnoses Urinary incontinence, unspecified type Procedures Measure post void residual Arash Drake MD [address] [place] [id number] Referral ID Status Reason Start Date Expiration Date V isits Requested Visits Authorized [id number] Pending Review 03/16/2024 03/16/2025 1 1 Additional Source Comments (unrecognized sect ion and content) No Status Records FoundNo Status Records FoundNo Status Records FoundNo Status Records FoundNo Status Records FoundNo Status Records Found INFORMATION SOURCE (unrecogn ized section and content) DATE CREATED AUTHOR 12/01/2021 [facility] DATE CREATED AUTHOR AUTHOR'S ORGANIZ ATION 10/30/2024 [facility] DATE CREATED AUTHOR AUTHOR'S ORGANIZ ATION 11/03/2024 [facility] DATE CREATED AUTHOR AUTHOR'S ORGANIZ ATION 11/21/2024 [facility] DATE CREATED AUTHOR AUTHOR'S ORGANIZ ATION 11/21/2024 [facility] DATE CREATED AUTHOR AUTHOR'S ORGANIZ ATION 11/22/2024 [facility] Care Teams (unrecognized sec tion and content) Communications Editor Relationship Specialty Start Date End Date Shabana Costello MD [address] [place] [address] PCP - General Family Medicine 11/14/22 Shabana Costello MD [address] [place] [address] PCP - ACO Reach 11/14/22 Communications Editor Relationship Specialty Start Date End Date Shabana Costello MD [address] [place] [address] PCP - General Family Medicine 11/14/22 Shabana Costello MD [address] [place] [address] PCP - ACO Reach 11/14/22 Communications Editor Relationship Specialty Start Date End Date Shabana Costello MD [address] [place] [address] PCP - General Family Medicine 11/14/22 Shabana Costello MD [address] [place] [address] PCP - ACO Reach 11/14/22 Communications Editor Relationship Specialty Start Date End Date Shabana Costello MD [address] [place] [address] PCP - General Family Medicine 11/14/22 Kristal Johnson NP [address] [place] [address] PCP - ACO Reach 08/22/23 Carey Mckinney, RN [address] [place] [address] Registered Nurse Family Medicine 10/06/23 Communications Editor Relationship Specialty Start Date End Date Shabana Costello MD [address] [place] [address] PCP - General Family Medicine 11/14/22 Kristal Johnson NP [address] [place] [address] PCP - ACO Reach 08/22/23 Carey Mckinney RN [address] [place] [address] Registered Nurse Family Medicine 10/06/23 Communications Editor Relationship Specialty Start Date End Date Shabana Costello MD [address] [place] [address] PCP - General Family Medicine 11/14/22 Kristal Johnson NP [address] [place] [address] PCP - ACO Reach 08/22/23 Carey Mckinney RN [address] [place] [address] Registered Nurse Family Medicine 10/06/23 Communications Editor Relationship Specialty Start Date End Date Shabana Costello MD [address] [place] [address] PCP - General Family Medicine 11/14/22 Kristal Johnson NP [address] [place] [address] PCP - ACO Reach 08/22/23 Carey Mckinney, RN [address] [place] [address] Registered Nurse Family Medicine 10/06/23 Communications Editor Relationship Specialty Start Date End Date Shabana Costello MD [address] [place] [address] PCP - General Family Medicine 11/14/22 Kristal Johnson NP [address] [place] [address] PCP - ACO Reach 08/22/23 Carey Mckinney RN [address] [place] [address] Registered Nurse Family Medicine 10/06/23 Communications Editor Relationship Specialty Start Date End Date Shabana Costello MD [address] [place] [address] PCP - General Family Medicine 11/14/22 Kristal Johnson, LORETTA [address] [place] [address] PCP - ACO Reach 08/22/23 Carey Mckinney, RN [address] [place] [address] Registered Nurse Family Medicine 10/06/23 Communications Editor Relationship Specialty Start Date End Date Shabana Costello MD [address] [place] [address] PCP - General Family Medicine 11/14/22 Kristal Johnson DIRECTOR OF MUSIC [address] [place] [address] PCP - ACO Reach 08/22/23 Carey Mckinney, RN [address] [place] [address] Registered Nurse Family Medicine 10/06/23 Communications Editor Relationship Specialty Start Date End Date Shabana Costello MD [address] [place] [address] PCP - General Family Medicine 11/14/22 Kristal Johnson, DIRECTOR OF MUSIC [address] [place] [address] PCP - ACO Reach 08/22/23 Carey Mckinney RN [address] [place] [address] Registered Nurse Family Medicine 10/06/23 Communications Editor Relationship Specialty Start Date End Date Shabana Costello MD [address] [place] [address] PCP - General Family Medicine 11/14/22 Kristal Johnson, DIRECTOR OF MUSIC [address] [place] [address] PCP - ACO Reach 08/22/23 Carey Mckinney, RN [address] [place] [address] Registered Nurse Family Medicine 10/06/23 Communications Editor Relationship Specialty Start Date End Date Shabana Costello MD [address] [place] [address] PCP - General Family Medicine 11/14/22 Kristal Johnson, DIRECTOR OF MUSIC [address] [place] [address] PCP - ACO Reach 08/22/23 Carey Mckinney, RN [address] [place] [address] Registered Nurse Family Medicine 10/06/23 Communications Editor Relationship Specialty Start Date End Date Shabana Costello MD [address] [place] [address] PCP - General Family Medicine 11/14/22 Kristal Johnson NP [address] [place] [address] PCP - ACO Reach 08/22/23 Carey Mckinney RN [address] [place] [address] Registered Nurse Family Medicine 10/06/23 Communications Editor Relationship Specialty Start Date End Date Shabana Costello MD [address] [place] [address] PCP - General Family Medicine 11/07/20 Communications Editor Relationship Specialty Start Date End Date Shabana Costello MD [address] [place] [address] PCP - General Family Medicine 11/07/20 Communications Editor Relationship Specialty Start Date End Date Shabana Costello MD [address] [place] [address] PCP - General Family Medicine 11/07/20 Communications Editor Relationship Specialty Start Date End Date Shabana Costello MD [address] [place] [address] PCP - General Family Medicine 11/07/20 Communications Editor Relationship Specialty Start Date End Date Shabana Costello MD [address] [place] [address] PCP - General Family Medicine 11/14/22 Kristal Johnson NP [address] [place] [address] PCP - ACO Reach 08/22/23 Carey Mckinney, JOSE [address] [place] [address] Registered Nurse Family Medicine 10/06/23 Communications Editor Relationship Specialty Start Date End Date Shabana Costello MD [address] [place] [address] PCP - General Family Medicine 11/07/20 Communications Editor Relationship Specialty Start Date End Date Shabana Costello MD [address] [place] [address] PCP - General Family Medicine 11/07/20 Communications Editor Relationship Specialty Start Date End Date Shabana Costello MD [address] [place] [address] PCP - General Family Medicine 11/07/20 Communications Editor Relationship Specialty Start Date End Date Shabana Costello MD [address] [place] [address] PCP - General Family Medicine 11/07/20 Communications Editor Relationship Specialty Start Date End Date Shabana Costello MD [address] [place] [address] PCP - General Family Medicine 11/14/22 Kristal Johnson DIRECTOR OF MUSIC [address] [place] [address] PCP - ACO Reach 08/22/23 Carey Mckinney, RN [address] [facility] [address] Registered Nurse Family Medicine 10/06/23 Communications Editor Relationship Specialty Start Date End Date Shabana Costello MD [address] [place] [address] PCP - General Family Medicine 11/07/20 Communications Editor Relationship Specialty Start Date End Date Shabana Costello MD [address] [place] [address] PCP - General Family Medicine 11/07/20 Communications Editor Relationship Specialty Start Date End Date Shabana Costello MD [address] [place] [address] PCP - General Family Medicine 11/07/20 Communications Editor Relationship Specialty Start Date End Date Shabana Costello MD [address] [place] [address] PCP - General Family Medicine 11/07/20 Communications Editor Relationship Specialty Start Date End Date Shabana Costello MD [address] [place] [address] PCP - General Family Medicine 11/07/20 Communications Editor Relationship Specialty Start Date End Date Shabana Costello MD [address] [place] [address] PCP - General Family Medicine 11/07/20 Communications Editor Relationship Specialty Start Date End Date Shabana Costello MD [address] [place] [address] PCP - General Family Medicine 11/07/20 Communications Editor Relationship Specialty Start Date End Date Shabana Costello MD [address] [place] [address] PCP - General Family Medicine 11/07/20 Communications Editor Relationship Specialty Start Date End Date Shabana Costello MD [address] [place] [address] PCP - General Family Medicine 11/07/20 Communications Editor Relationship Specialty Start Date End Date Shabana Costello MD [address] [place] [address] PCP - General Family Medicine 11/07/20 Communications Editor Relationship Specialty Start Date End Date Shabana Costello MD [address] [place] [address] PCP - General Family Medicine 11/07/20 Communications Editor Relationship Specialty Start Date End Date Shabana Costello MD [address] [place] [address] PCP - General Family Medicine 11/07/20 Communications Editor Relationship Specialty Start Date End Date Shabana Costello MD [address] [place] [address] PCP - General Family Medicine 11/07/20 Communications Editor Relationship Specialty Start Date End Date Shabana Costello MD [address] [place] [address] PCP - General Family Medicine 11/07/20 Communications Editor Relationship Specialty Start Date End Date Shabana Costello MD [address] [place] [address] PCP - General Family Medicine 11/07/20 Communications Editor Relationship Specialty Start Date End Date Shabana Costello MD [address] [place] [address] PCP - General Family Medicine 11/07/20 Communications Editor Relationship Specialty Start Date End Date Shabana Costello MD [address] [place] [address] PCP - General Family Medicine 11/07/20 Communications Editor Relationship Specialty Start Date End Date Shabana Costello MD [address] [place] [address] PCP - General Family Medicine 11/07/20 Communications Editor Relationship Specialty Start Date End Date Shabana Costello MD [address] [place] [address] PCP - General Family Medicine 11/07/20 Communications Editor Relationship Specialty Start Date End Date Shabana Costello MD [address] [place] [address] PCP - General Family Medicine 11/07/20 Communications Editor Relationship Specialty Start Date End Date Shabana Costello MD [address] [place] [address] PCP - General Family Medicine 11/07/20 Communications Editor Relationship Specialty Start Date End Date Shabana Costello MD [address] [place] [address] PCP - General Family Medicine 11/07/20 Communications Editor Relationship Specialty Start Date End Date Shabana Costello MD [address] [place] [address] PCP - General Family Medicine 11/07/20 Communications Editor Relationship Specialty Start Date End Date Shabana Costello MD [address] [place] [address] PCP - General Family Medicine 11/07/20 Communications Editor Relationship Specialty Start Date End Date Shabana Costello MD [address] [place] [address] PCP - General Family Medicine 11/07/20 Communications Editor Relationship Specialty Start Date End Date Shabana Costello MD [address] [place] [address] PCP - General Family Medicine 11/07/20 Communications Editor Relationship Specialty Start Date End Date Shabana Costello MD [address] [place] [address] PCP - General Family Medicine 11/07/20 Communications Editor Relationship Specialty Start Date End Date Shabana Costello MD [address] [place] [address] PCP - General Family Medicine 11/07/20 Communications Editor Relationship Specialty Start Date End Date Shabana Costello MD [address] [place] [address] PCP - General Family Medicine 11/07/20 Communications Editor Relationship Specialty Start Date End Date Shabana Costello MD [address] [place] [address] PCP - General Family Medicine 11/07/20 Communications Editor Relationship Specialty Start Date End Date Shabana Costello MD [address] [facility] [place] [address] PCP - General Family Medicine 11/07/20 Communications Editor Relationship Specialty Start Date End Date Shabana Costello MD [address] [place] [address] PCP - General Family Medicine 11/07/20 Communications Editor Relationship Specialty Start Date End Date Shabana Costello MD [address] [facility] [place] [address] PCP - General Family Medicine 11/07/20 Communications Editor Relationship Specialty Start Date End Date Shabana Costello MD [address] [facility] [place] [address] PCP - General Family Medicine 11/07/20 Communications Editor Relationship Specialty Start Date End Date Shabana Costello MD [address] [facility] [place] [address] PCP - General Family Medicine 11/07/20 Communications Editor Relationship Specialty Start Date End Date Shabana Costello MD [address] [facility] [place] [address] PCP - General Family Medicine 11/07/20 Communications Editor Relationship Specialty Start Date End Date Shabana Costello MD [address] [place] [address] PCP - General Family Medicine 11/07/20 Communications Editor Relationship Specialty Start Date End Date Shabana Costello MD [address] [place] [address] PCP - General Family Medicine 11/07/20 Communications Editor Relationship Specialty Start Date End Date Shabana Costello MD [address] [place] [address] PCP - General Family Medicine 11/07/20 Communications Editor Relationship Specialty Start Date End Date Shabana Costello MD [address] [place] [address] PCP - General Family Medicine 11/07/20 Communications Editor Relationship Specialty Start Date End Date Shabana Costello MD [address] [place] [address] PCP - General Family Medicine 11/07/20 Communications Editor Relationship Specialty Start Date End Date Shabana Costello MD [address] [place] [address] PCP - General Family Medicine 11/07/20 Communications Editor Relationship Specialty Start Date End Date Shabana Costello MD [address] [place] [address] PCP - General Family Medicine 11/07/20 Communications Editor Relationship Specialty Start Date End Date Shabana Costello MD [address] [place] [address] PCP - General Family Medicine 11/07/20 Communications Editor Relationship Specialty Start Date End Date Shabana Costello MD [address] [place] [address] PCP - General Family Medicine 11/07/20 Communications Editor Relationship Specialty Start Date End Date Shabana Costello MD [address] [place] [address] PCP - General Family Medicine 11/07/20 Communications Editor Relationship Specialty Start Date End Date Shabana Costello MD [address] [place] [address] PCP - General Family Medicine 11/07/20 Communications Editor Relationship Specialty Start Date End Date Shabana Costello MD [address] [place] [address] PCP - General Family Medicine 11/07/20 Communications Editor Relationship Specialty Start Date End Date Shabana Costello MD [address] [place] [address] PCP - General Family Medicine 11/07/20 Communications Editor Relationship Specialty Start Date End Date Shabana Costello MD [address] [place] [address] PCP - General Family Medicine 11/07/20 Communications Editor Relationship Specialty Start Date End Date Shabana Costello MD [address] [place] [address] PCP - General Family Medicine 11/07/20 Communications Editor Relationship Specialty Start Date End Date Shabana Costello MD [address] [place] [address] PCP - General Family Medicine 11/07/20 Communications Editor Relationship Specialty Start Date End Date Shabana Costello MD [address] [place] [address] PCP - General Family Medicine 11/07/20 Communications Editor Relationship Specialty Start Date End Date Shabana Costello MD [address] [place] [address] PCP - General Family Medicine 11/07/20 Communications Editor Relationship Specialty Start Date End Date Shabana Costello MD [address] [place] [address] PCP - General Family Medicine 11/14/22 Kristal Johnson NP [address] [place] [address] PCP - ACO Reach 08/22/23 Carey Mckinney, RN [address] [place] [address] Registered Nurse Family Medicine 10/06/23 Communications Editor Relationship Specialty Start Date End Date Shabana Costello MD [address] [place] [address] PCP - General Family Medicine 08/24/24 Communications Editor Relationship Specialty Start Date End Date Shabana Costello MD [address] [place] [address] PCP - General Family Medicine 08/24/24 Communications Editor Relationship Specialty Start Date End Date Shabana Costello MD [address] [place] [address] PCP - General Family Medicine 08/24/24 Communications Editor Relationship Specialty Start Date End Date Shabana Costello MD [address] [place] [address] PCP - General Family Medicine 08/24/24 Communications Editor Relationship Specialty Start Date End Date Shabana Costello MD [address] [place] [address] PCP - General Family Medicine 11/14/22 Kristal Johnson NP [address] [place] [address] PCP - ACO Reach 08/22/23 Carey Mckinney RN [address] [place] [address] Registered Nurse Family Medicine 10/06/23 Communications Editor Relationship Specialty Start Date End Date Shabana Costello MD [address] [place] [address] PCP - General Family Medicine 08/24/24 Communications Editor Relationship Specialty Start Date End Date Shabana Costello MD [address] [place] [address] PCP - General Family Medicine 11/14/22 Kristal Johnson NP [address] [place] [address] PCP - ACO Reach 08/22/23 Carey Mckinney RN [address] [place] [address] Registered Nurse Family Medicine 10/06/23 Communications Editor Relationship Specialty Start Date End Date Shabana Costello MD [address] [place] [address] PCP - General Family Medicine 11/14/22 Kristal Johnson NP [address] [place] [address] PCP - ACO Reach 08/22/23 Carey Mckinney RN [address] [place] [address] Registered Nurse Family Medicine 10/06/23 Communications Editor Relationship Specialty Start Date End Date Shabana Costello MD [address] [place] [address] PCP - General Family Medicine 08/24/24 Communications Editor Relationship Specialty Start Date End Date Shabana Costello MD [address] [place] [address] PCP - General Family Medicine 08/24/24 Communications Editor Relationship Specialty Start Date End Date Shabana Costello MD [address] [place] [address] PCP - General Family Medicine 11/14/22 Kristal Johnson NP [address] [place] [address] PCP - ACO Reach 08/22/23 Carey Mckinney RN [address] [place] [address] Registered Nurse Family Medicine 10/06/23 Communications Editor Relationship Specialty Start Date End Date Shabana Costello MD [address] [place] [address] PCP - General Family Medicine 11/05/24 Communications Editor Relationship Specialty Start Date End Date Shabana Costello MD [address] [facility] [place] [address] PCP - General Family Medicine 11/05/24 Communications Editor Relationship Specialty Start Date End Date Shabana Costello MD [address] [place] [place] [address] PCP - General Family Medicine 11/05/24 Communications Editor Relationship Specialty Start Date End Date Shabana Costello MD [address] [facility] [place] [address] PCP - General Family Medicine 11/14/22 Kristal Johnson NP [address] [place] [address] PCP - ACO Reach 08/22/23 Carey Mckinney, JOSE [address] [place] [place] [address] Registered Nurse Family Medicine 10/06/23 Communications Editor Relationship Specialty Start Date End Date Shabana Costello MD [address] [place] [address] PCP - General Family Medicine 11/05/24 Reason for Visit (unrecogniz ed section and content) Reason Comments Toenail Care PCP: Diane LAROSE , A1C: 6.5, BS: 141 Reason Onset Date Comments Med Refill 08/01/2023 Reason Comments Diabetic Nail care Sheeba Adames is a 78 y.o. male who presents for DM Foot Care. PCP: Pravin 01/29/2024 A1C: 8.6 BS: 130 Reason Comments Follow-up Reason Comments Med Refill Reason Onset Date Comments Med Refill 05/21/2024 Reason Onset Date Comments Med Refill 02/29/2024 Reason Comments Pain Reason Comments Congestive Heart Failure MTM Follow-up Visit Reason Onset Date Comments Med Refill 06/28/2024 Reason Comments DM Foot Care Sheeba Adames is a 79 y.o. male who presents for DM Foot Care. PCP: Pravin/Layla 06/09/24 A1C: 7.4 BS: 134 Reason Comments Congestive Heart Failure Follow-up Reason Comments Wound Check Specialty Diagnoses / Procedures [facility] Referred To Contact Wound Care Diagnoses Skin infection Open wound of multiple sites of one lower extremity and thigh with complication, initial encounter Kristal Johnson APRN-[facility] [address], [address] [address] [facility] [address] [place] [address] Referral ID Status Reason Start Date Expiration Date Visits Requested Visits Authorized [id number] Pending Review Specialty Services Required 10/31/2023 10/30/2024 1 1 Reason Comments Follow-up bladder leaking and lack on control Reason Onset Date Comments Med Refill 11/18/2023 Reason Onset Date Comments Med Refill 11/19/2023 Reason Onset Date Comments Med Refill 07/28/2023 Reason Comments Wound Check Specialty Diagnoses / Procedures Referred By [facility] Referred To Contact Wound Care Diagnoses Skin infection Open wound of multiple sites of one lower extremity and thigh with complication, initial encounter Kristal Johnson APRN-[facility] [address], [address] [address] [facility] [address] [place] [address] Reason Comments Pre-op Exam EST PT F/U 6 MS L/S KBS PREOP DR BISHOP CYSTOSCOPY POTENTIAL URETHRAL DILATION, BLADDER BIOPSY/FULGURATION/UNDER MAC 08/27/2023, FORMS SCANNED TO MEDIA Reason Comments Follow-up 1 month follow up/PV R //pt has swelling in penis & scrotum / started few days ago Reason Onset Date Comments hydronephrosis 12/27/2023 Advice Only 12/27/2023 Reason Comments Bladder Problem Reason Comments Follow-up EST PT F/U 6 MS L/S MS IP MIKA SCHED W/PT Reason Comments Congestive Heart Failure MTM Initial Visit Reason Comments Follow-up incontinence issues Reason Comments Follow-up EST PT LS MS STRESS, LABS, HF CLINICN REFERRAL SCHED W/PT Reason Onset Date Comments Med Refill 08/03/2024 Reason Comments Follow-up 3 MONTH Coronary Artery Disease Reason Onset Date Comments Med Refill 08/16/2024 Reason Onset Date Comments Advice Only 08/29/2024 Hemothorax Reason Comments Follow-up ED 08/24/24 FALL Reason Onset Date Comments Med Refill 10/26/2024 Reason Comments Sore Throat Reason Onset Date Comments Consult 11/06/2024 Osteo of lumbar spine Reason Onset Date Comments heart rate 11/09/2024 Reason Onset Date Comments Consult 11/10/2024 Peg placement FOR RECORDS PERTAINING TO PATIENTS WHO ARE OR HAVE BEEN ENROLLED IN A CHEMICAL DEPENDENCY/SUBSTANCEABUSE PROGRAM, SOME INFORMATION MAY BE OMITTED. This clinical summary was aggregated from multiple sources. Caution should be exercised in using it in the provision of clinical care. This summary normalizes information from multiple sources, and as a consequence, information in this document may materially change the coding, format and clinical context of patient data. In addition, data may be omitted in some cases. CLINICAL DECISIONS SHOULD BE BASED ON THE PRIMARY CLINICAL RECORDS. [employer] provides no warranty or guarantee of the accuracy or completeness of information in this document.
[2024-12-30 06:41] LABS: Hematocrit 48.7 % (42.0-54.0); Hemoglobin 16.2 g/dL (14.0-18.0); Mean Corpuscular HGB Conc 33.3 g/dL (29.9-35.2); Mean Corpuscular Hemoglobin 29.0 pg (25.9-34.0); Mean Corpuscular Volume 87.1 fL (80.0-94.0); Platelet Count 247 10^3/uL (150-450); Red Blood Count 5.59 10^6/uL (4.70-6.10); White Blood Count 6.3 10^3/uL (4.0-11.0)
[2024-12-30] MEDS: 0.9 % SODIUM CHLORIDE 1,000 ML 1000 ML IV (06:45)
--- NOTE | 2024-12-30 06:46 | ED.ARRPALP1 ---
HPI - Arrhythmia/Palpitations General Chief Complaint: Arrhythmia/Palpitations Stated Complaint: NAUSEA VOMITING Time Seen by Provider: 12/30/24 06:23 Source: other Source comment: EMS, Nurse from [place] Mode of arrival: ambulance History of Present Illness HPI narrative: past history of Gin fib. NHP has feeding tube. DNRCCA. Presents with 2 day history of recurrent diarrhea and vomiting. Became cool and clammy at home and family requested transfer. Arrives awake in no distress with heart rate 180s. He is hypotensive BP 92/70. Denies chest pain or dyspnea. Denies abdomina pain Related Data Home Medications ?Medication ?Instructions ?Recorded ?Confirmed acetaminophen 500 mg tablet 500 mg feeding tube Q6H PRN PAIN 12/30/24 12/30/24 1-6 albuterol sulfate 2.5 mg/3 mL 2.5 mg inhalation TID 12/30/24 12/30/24 (0.083 %) solution for nebulization aspirin 81 mg tablet 81 mg PO DAILY 12/30/24 12/30/24 bumetanide 1 mg tablet 1 mg feeding tube DAILY 12/30/24 12/30/24 dapagliflozin propanediol 10 mg 10 mg feeding tube DAILY 12/30/24 12/30/24 tablet (Farxiga) folic acid 1 mg tablet 1 mg feeding tube DAILY 12/30/24 12/30/24 guaifenesin 100 mg/5 mL oral liquid 200 mg feeding tube Q6H 12/30/24 12/30/24 insulin lispro 100 unit/mL 1 sliding scale dose subcut ACHS 12/30/24 12/30/24 subcutaneous pen (Humalog KwikPen (U-100) Insulin) loperamide 2 mg tablet (Imodium 2 mg feeding tube TID PRN loose 12/30/24 12/30/24 A-D) stool losartan 25 mg tablet (Cozaar) 25 mg feeding tube DAILY 12/30/24 12/30/24 magnesium oxide 500 mg feeding tube BID 12/30/24 12/30/24 metoprolol tartrate 100 mg tablet 50 mg feeding tube BID 12/30/24 12/30/24 nitroglycerin 0.4 mg sublingual 0.4 mg sublingual Q5M 12/30/24 12/30/24 tablet (Nitrostat) omeprazole 20 mg capsule,delayed 20 mg feeding tube DAILY 12/30/24 12/30/24 release ondansetron 4 mg disintegrating 4 mg feeding tube Q6H PRN nausea 12/30/24 12/30/24 tablet and vomiting paroxetine HCl 20 mg tablet (Paxil) 20 mg PO DAILY 12/30/24 12/30/24 sennosides 8.6 mg-docusate sodium 1 tab-cap PO BID PRN constipation 12/30/24 12/30/24 50 mg tablet (Senna with Docusate Sodium) thiamine HCl (vitamin B1) 100 mg 100 mg PO DAILY 12/30/24 12/30/24 capsule warfarin 5 mg tablet 10 mg feeding tube .QD 12/30/24 12/30/24 Allergies Allergy/AdvReac Type Severity Reaction Status Date / Time celecoxib Allergy Unknown Unknown Verified 12/30/24 06:28 niacin Allergy Unknown Unknown Verified 12/30/24 06:28 prasugrel Allergy Unknown Unknown Verified 12/30/24 06:28 Review of Systems ROS Status of ROS 10 or more systems reviewed and unremarkable except as noted in history and below [facility] Medical History (Updated 12/30/24 @ 12:43 by Gildardo Kiser MD) Lymphedema ?I89.0 - Lymphedema, not elsewhere classified (ICD-10) Benign prostatic hyperplasia ?N40.0 - Benign prostatic hyperplasia without lower urinary tract symptoms (ICD-10) Diabetes mellitus ?E11.9 - Type 2 diabetes mellitus without complications (ICD-10) CVA (cerebral vascular accident) ?I63.9 - Cerebral infarction, unspecified (ICD-10) Hypertension ?I10 - Essential (primary) hypertension (ICD-10) 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 (ICD-10) Cirrhosis of liver ?K74.60 - Unspecified cirrhosis of liver (ICD-10) Acute kidney failure ?N17.9 - Acute kidney failure, unspecified (ICD-10) Pneumonia ?J18.9 - Pneumonia, unspecified organism (ICD-10) Social History Highest level of school completed/degree received: high school graduate Little interest or pleasure in doing things: not at all Feeling down, depressed, or hopeless: not at all Exam Constitutional Vital Signs, click to edit/add: Last Vital Signs Temp 98 F 12/30/24 12:00 Pulse 128 H 12/30/24 18:50 Resp 28 H 12/30/24 18:50 BP 133/107 H 12/30/24 18:30 Pulse Ox 93 L 12/30/24 18:50 O2 Del Method Room Air 12/30/24 12:00 Common normals: no apparent distress, oriented x3, healthy appearing, alert and well nourished [facility] Common normals: normocephalic and head/scalp atraumatic Eye Common normals: EOMs intact bilaterally and conjunctivae normal Respiratory Common normals: normal respiratory effort, no retractions, no use of accessory muscles and clear to auscultation bilaterally Cardio Rate: tachycardic Rhythm: abnormal rhythm GI Common normals: Normal to inspection, nondistended, normoactive bowel sounds present, soft to palpation and non-tender Other: feeding tube in place Extremity Common normals: normal to inspection and full ROM Neuro Common normals: oriented x3, CN's II-XII intact bilaterally, moves all extremities and no focal motor deficits Psych Appearance: grossly normal Course Vital Signs Vital signs: Vital Signs Blood Pressure 92/70 12/30/24 06:10 Temperature 98 F 12/30/24 12:00 Pulse Rate 128 H 12/30/24 18:50 Respiratory Rate 28 H 12/30/24 18:50 Blood Pressure 133/107 H 12/30/24 18:30 Pulse Oximetry 93 L 12/30/24 18:50 Oxygen Delivery Method Room Air 12/30/24 12:00 MDM - Arrhythmia/Palpitations MDM Narrative Medical decision making narrative: patient presents with 2 day history of recurrent vomiting and diarrhea. Arrives from residential in [place] Fib with RVR and BP 92 systolic. IV fluids and amiodarone ordered along with labs and cxray. He is DNRCCA. care transferred to Dr Clayton at change of shift Lab Data Labs: Lab Results 12/30/24 Range/Units 06:20 WBC 6.3 (4.0-11.0) 10^3/uL RBC 5.59 (4.70-6.10) 10^6/uL Hgb 16.2 (14.0-18.0) g/dL Hct 48.7 (42.0-54.0) % MCV 87.1 (80.0-94.0) fL MCH 29.0 (25.9-34.0) pg MCHC 33.3 (29.9-35.2) g/dL RDW 19.3 H (11.0-15.0) % Plt Count 247 (150-450) 10^3/uL MPV 10.2 (9.5-13.5) fL Seg Neuts % (Manual) 47.0 (43.0-75.0) Band Neutrophils % 17.0 H (0-5) % Lymphocytes % (Manual) 22.0 (20.5-60.0) % Monocytes % (Manual) 10.0 (1.7-12.0) % Eosinophils % (Manual) 2.0 (0.9-7.0) % Basophils % (Manual) 0.0 L (0.2-2.0) % Metamyelocytes % 2.0 Neutrophils # (Manual) 2.96 (1.4-6.5) 10^3/uL Band Neutrophils # 1.1 H (0.0-0.3) 10^3/uL Lymphocytes # (Manual) 1.38 (1.20-3.80) 10^3/uL Monocytes # (Manual) 0.63 (0.30-0.80) 10^3/uL Eosinophils # (Manual) 0.12 (0.00-0.70) 10^3/uL Basophils # (Manual) 0.00 (0.00-0.10) 10^3/uL Metamyelocytes # 0.12 PT 25.5 H (9.0-11.6) sec INR 2.65 Sodium 144 (136-145) mmol/L Potassium 4.4 (3.5-5.1) mmol/L Chloride 101 (98-107) mmol/L Carbon Dioxide 31.8 (21.0-32.0) mmol/L Anion Gap 15.6 BUN 52.0 H (7.0-18.0) mg/dL Creatinine 1.57 H (0.70-1.30) mg/dL Est GFR ( Amer) 52 L (>=60 mL/min/1.73m^2) Est GFR (Non-Af Amer) 43 L (>=60 mL/min/1.73m^2) BUN/Creatinine Ratio 33.1 Glucose 236 H (74-106) mg/dL Estimat Average Glucose 146 mg/dL Hemoglobin A1c 6.7 H (4.5-6.2) % Calcium 9.7 (8.5-10.1) mg/dL Troponin I High Sens 15.2 (4.0-76.1) pg/mL TSH 1.714 (0.358-3.740) uIU/mL Critical Care Time Critical Care Time Total Critical Care Time: 45 Discharge Plan Discharge Chief Complaint: Arrhythmia/Palpitations Clinical Impression: Atrial fibrillation, Gastroenteritis, Dehydration Patient Disposition: Admitted As Inpatient Time of Disposition Decision: 08:14 Condition: Fair Discharge Date/Time: 12/30/24 10:05
[2024-12-30] MEDS: AMIODARONE IN DEXTROSE,ISO-OSM 360 MG/200 ML PLAST..BAG 33.333 MG IV (06:50)
[2024-12-30 06:54] LABS: Anion Gap 15.6; Blood Urea Nitrogen 52.0 mg/dL (7.0-18.0); Calcium 9.7 mg/dL (8.5-10.1); Carbon Dioxide 31.8 mmol/L (21.0-32.0); Chloride 101 mmol/L (98-107); Estimated GFR (African America 52 (>=60 mL/min/1.73m^2); Estimated GFR (Non-African Ame 43 (>=60 mL/min/1.73m^2); Glucose 236 mg/dL (74-106); Potassium 4.4 mmol/L (3.5-5.1); Sodium 144 mmol/L (136-145)
[2024-12-30 06:57] LABS: INR 2.65; Prothrombin Time 25.5 sec (9.0-11.6)
[2024-12-30 07:03] LABS: Band Neutrophils Absolute 1.1 10^3/uL (0.0-0.3); Basophils Abs Manual 0.00 10^3/uL (0.00-0.10); Basophils Percent Manual 0.0 % (0.2-2.0); Eosinophils Absolute Manual 0.12 10^3/uL (0.00-0.70); Eosinophils Percent Manual 2.0 % (0.9-7.0); Lymphocytes Absolute Manual 1.38 10^3/uL (1.20-3.80); Lymphocytes Percent Manual 22.0 % (20.5-60.0); Metamyelocytes Absolute Manual 0.12; Monocytes Absolute Manual 0.63 10^3/uL (0.30-0.80); Monocytes Percent Manual 10.0 % (1.7-12.0); Segmented Neut Absolute Manual 2.96 10^3/uL (1.4-6.5); Segmented Neutrophils % Manual 47.0 (43.0-75.0)
[2024-12-30] MEDS: DILTIAZEM HCL 25 MG/5 ML VIAL 10 MG IV (07:36)
--- NOTE | 2024-12-30 08:12 | CA_ITS ---
Patient Name: SHEEBA REEVES MR#: [id number] : 1945 Exam Date: 12/30/2024 Ordering Doctor: RAFITA SANDOVAL ECHOCARDIOGRAM REPORT PROCEDURE: CA ECHO DOPPLER COMPLETE INDICATIONS: A fib RVR, hypertension, diabetes COMPARISON: None. DESCRIPTION: COMPLETE ECHOCARDIOGRAM Real-time transthoracic echocardiography with 2D, M-mode, spectral and color flow Doppler performed. QUALITY: Technically difficult study with poor endocardium definition. LEFT VENTRICLE: Normal chamber size. Mild concentric left ventricular hypertrophy. LV EF: Difficult to assess systolic function but appears reduced DIASTOLIC: Not adequately assessed due to heart rhythm. ATRIAL SEPTUM: LEFT ATRIUM: Moderate dilatation. RIGHT ATRIUM: Mild dilatation. RIGHT VENTRICLE: Normal chamber size. TRICUSPID VALVE:Normal mobility and thickness. No stenosis with trivial regurgitation. No evidence of pulmonary hypertension.RVSP 31 mmHg MITRAL VALVE: Normal mobility and thickness. No evidence of mitral valve stenosis. Mild mitral annular calcification. Trivial mitral regurgitation. AORTIC VALVE: Normal trileaflet appearance. Mildly calcified aortic valve. Mildly diminished mobility. Doppler velocity suggest mild aortic valve stenosis. DVI 0.5, DIOGO 1.9 cm2. No aortic regurgitation. AORTIC ROOT: Normal diameter and appearance. PULMONIC VALVE:Not well visualized. No stenosis. No regurgitation. PERICARDIUM: No evidence of pericardial effusion. IVC: Not well visualized. PLEURA: CONCLUSION: Technically difficult study Mild concentric left ventricle hypertrophy Difficult to assess left ventricle systolic function but appears reduced, recommend to repeat study with Lumason Mild aortic stenosis Moderately dilated LA No evidence of pulmonary HTN Adult Echocardiography Procedure Report Left Ventricle LVEDD (3.7 - 5.6 cm): 4.65 cm LVESD (2.2 - 4.0 cm): 3.49 cm LVIVS thickness (0.6 - 1.2 cm): 1.42 cm LVPW thickness (0.5 - 1.0 cm): 1.57 cm e': E - e': LVOT Max Gradient: 1.16 mm[Hg], 1.78 mm[Hg], 2.46 mm[Hg] LVOT Area (cm2): 0.66 m/s Peak Velocity (LVOT): 0.54 m/s, 0.67 m/s, 0.78 m/s Mean Velocity (LVOT): 0.40 m/s LVOT Diameter 2.19 cm Left Ventricular Ejection Fraction: Left Atrium LA Volume Index (2D A2C): 44.05 ml/m2 Left Atrium Systolic Dimension: 5.47 cm Mitral Valve MV E to A Ratio: MV Max Gradient: MV Mean Gradient: Mitral Valve A-Wave Peak Velocity: Mitral Valve E-Wave Peak Velocity: 0.56 m/s Cardiovascular Orifice Area: Right Ventricle RV Internal Diastolic Dimension: Aorta AO Root Diam: 3.90 cm Ascending Ao Diam: Aortic Valve AoV Area (Peak Emmett): 1.91 cm2, 1.59 cm2, 1.58 cm2, 2.79 cm2 AoV Area (VTI): 1.90 cm2, 1.40 cm2, 1.50 cm2, 3.40 cm2 Deceleration [place]: Pressure Half-Time: Peak Velocity(Antegrade Flow): 1.28 m/s, 1.60 m/s, 1.06 m/s Peak Gradient(Antegrade Flow): 6.57 mm[Hg], 10.22 mm[Hg], 4.51 mm[Hg] Mean Velocity(Antegrade Flow): 0.85 m/s, 1.04 m/s, 0.73 m/s Mean Gradient(Antegrade Flow): 3.43 mm[Hg], 5.16 mm[Hg], 2.44 mm[Hg] Velocity Time Integral: 19.72 cm, 26.33 cm, 13.49 cm Tricuspid Valve Peak Velocity (Regurgitant Flow): 2.15 m/s, 2.37 m/s, 2.58 m/s Peak Velocity: Pulmonic Valve Mean Gradient: Mean Velocity: Peak Velocity: 0.80 m/s Peak Gradient: 2.56 mm[Hg] Right Atrium Right Atrium Systolic Pressure: 61.43 ml, 61.43 ml Dictated by: Ariana Paige MD on 12/31/2024 at 17:27 Approved by: Ariana Paige MD on 12/31/2024 at 17:34
--- NOTE | 2024-12-30 08:14 | ED.GENADUL1 ---
HPI HPI - General Adult General Chief complaint: Arrhythmia/Palpitations Stated complaint: NAUSEA VOMITING Time Seen by Provider: 12/30/24 06:23 Source: other Source information: EMS, Nurse from [facility] Mode of arrival: ambulance History of Present Illness HPI narrative: 79-year-old male presents to the emergency department and was initially seen by Dr. Hernandez. Please see his full history and physical exam. Related Data Home Medications ?Medication ?Instructions ?Recorded ?Confirmed acetaminophen 500 mg tablet 500 mg feeding tube Q6H PRN PAIN 12/30/24 12/30/24 1-6 albuterol sulfate 0.63 mg/3 mL 0.63 mg inhalation Q6H PRN 12/30/24 12/30/24 solution for nebulization shortness of breath or wheezing albuterol sulfate 2.5 mg/3 mL 2.5 mg inhalation TID 12/30/24 12/30/24 (0.083 %) solution for nebulization aspirin 81 mg tablet 81 mg PO DAILY 12/30/24 12/30/24 bumetanide 1 mg tablet 1 mg feeding tube DAILY 12/30/24 12/30/24 dapagliflozin propanediol 10 mg 10 mg feeding tube DAILY 12/30/24 12/30/24 tablet (Farxiga) folic acid 1 mg tablet 1 mg feeding tube DAILY 12/30/24 12/30/24 guaifenesin 100 mg/5 mL oral liquid 200 mg feeding tube Q6H 12/30/24 12/30/24 insulin lispro 100 unit/mL 1 sliding scale dose subcut ACHS 12/30/24 12/30/24 subcutaneous pen (Humalog KwikPen (U-100) Insulin) loperamide 2 mg tablet (Imodium 2 mg feeding tube TID PRN loose 12/30/24 12/30/24 A-D) stool losartan 25 mg tablet (Cozaar) 25 mg feeding tube DAILY 12/30/24 12/30/24 magnesium oxide 500 mg feeding tube BID 12/30/24 12/30/24 metoprolol tartrate 100 mg tablet 50 mg feeding tube BID 12/30/24 12/30/24 nitroglycerin 0.4 mg sublingual 0.4 mg sublingual Q5M 12/30/24 12/30/24 tablet (Nitrostat) omeprazole 20 mg capsule,delayed 20 mg feeding tube DAILY 12/30/24 12/30/24 release ondansetron 4 mg disintegrating 4 mg feeding tube Q6H PRN nausea 12/30/24 12/30/24 tablet and vomiting paroxetine HCl 20 mg tablet (Paxil) 20 mg PO DAILY 12/30/24 12/30/24 sennosides 8.6 mg-docusate sodium 1 tab-cap PO BID PRN constipation 12/30/24 12/30/24 50 mg tablet (Senna with Docusate Sodium) thiamine HCl (vitamin B1) 100 mg 100 mg PO DAILY 12/30/24 12/30/24 capsule warfarin 5 mg tablet 10 mg feeding tube .QD 12/30/24 12/30/24 Allergies Allergy/AdvReac Type Severity Reaction Status Date / Time celecoxib Allergy Unknown Unknown Verified 12/30/24 06:28 niacin Allergy Unknown Unknown Verified 12/30/24 06:28 prasugrel Allergy Unknown Unknown Verified 12/30/24 06:28 [facility] Medical History (Updated 12/30/24 @ 08:14 by Sergei Clayton MD) Lymphedema ?I89.0 - Lymphedema, not elsewhere classified (ICD-10) Benign prostatic hyperplasia ?N40.0 - Benign prostatic hyperplasia without lower urinary tract symptoms (ICD-10) Diabetes mellitus ?E11.9 - Type 2 diabetes mellitus without complications (ICD-10) CVA (cerebral vascular accident) ?I63.9 - Cerebral infarction, unspecified (ICD-10) Hypertension ?I10 - Essential (primary) hypertension (ICD-10) 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 (ICD-10) Cirrhosis of liver ?K74.60 - Unspecified cirrhosis of liver (ICD-10) Acute kidney failure ?N17.9 - Acute kidney failure, unspecified (ICD-10) Pneumonia ?J18.9 - Pneumonia, unspecified organism (ICD-10) Exam Constitutional Vital Signs, click to edit/add: Last Vital Signs Pulse 192 H 12/30/24 06:40 Resp 26 H 12/30/24 06:40 BP 110/71 12/30/24 06:37 Pulse Ox 97 12/30/24 06:44 O2 Del Method Room Air 12/30/24 06:44 Course Vital Signs Vital signs: Vital Signs Blood Pressure 92/70 12/30/24 06:10 Pulse Rate 192 H 12/30/24 06:40 Respiratory Rate 26 H 12/30/24 06:40 Blood Pressure 110/71 12/30/24 06:37 Pulse Oximetry 97 12/30/24 06:44 Oxygen Delivery Method Room Air 12/30/24 06:44 Medical Decision Making MDM Narrative Medical decision making narrative: The patient presented with atrial fibrillation and RVR. He was given IV amiodarone and placed on a drip. Subsequently his blood pressure was improving so he was given IV Cardizem bolus and then at the request of Dr. Kiser placed on a drip. He is being admitted to the stepdown unit. Findings are discussed with the patient and his . Differential Diagnosis Differential Diagnosis: Atrial fibrillation, RVR, dehydration, acute kidney injury Lab Data Lab results reviewed: Yes I reviewed the patient's lab results Labs: Lab Results 12/30/24 Range/Units 06:20 WBC 6.3 (4.0-11.0) 10^3/uL RBC 5.59 (4.70-6.10) 10^6/uL Hgb 16.2 (14.0-18.0) g/dL Hct 48.7 (42.0-54.0) % MCV 87.1 (80.0-94.0) fL MCH 29.0 (25.9-34.0) pg MCHC 33.3 (29.9-35.2) g/dL RDW 19.3 H (11.0-15.0) % Plt Count 247 (150-450) 10^3/uL MPV 10.2 (9.5-13.5) fL Seg Neuts % (Manual) 47.0 (43.0-75.0) Band Neutrophils % 17.0 H (0-5) % Lymphocytes % (Manual) 22.0 (20.5-60.0) % Monocytes % (Manual) 10.0 (1.7-12.0) % Eosinophils % (Manual) 2.0 (0.9-7.0) % Basophils % (Manual) 0.0 L (0.2-2.0) % Metamyelocytes % 2.0 Neutrophils # (Manual) 2.96 (1.4-6.5) 10^3/uL Band Neutrophils # 1.1 H (0.0-0.3) 10^3/uL Lymphocytes # (Manual) 1.38 (1.20-3.80) 10^3/uL Monocytes # (Manual) 0.63 (0.30-0.80) 10^3/uL Eosinophils # (Manual) 0.12 (0.00-0.70) 10^3/uL Basophils # (Manual) 0.00 (0.00-0.10) 10^3/uL Metamyelocytes # 0.12 PT 25.5 H (9.0-11.6) sec INR 2.65 Sodium 144 (136-145) mmol/L Potassium 4.4 (3.5-5.1) mmol/L Chloride 101 (98-107) mmol/L Carbon Dioxide 31.8 (21.0-32.0) mmol/L Anion Gap 15.6 BUN 52.0 H (7.0-18.0) mg/dL Creatinine 1.57 H (0.70-1.30) mg/dL Est GFR ( Amer) 52 L (>=60 mL/min/1.73m^2) Est GFR (Non-Af Amer) 43 L (>=60 mL/min/1.73m^2) BUN/Creatinine Ratio 33.1 Glucose 236 H (74-106) mg/dL Calcium 9.7 (8.5-10.1) mg/dL Troponin I High Sens 15.2 (4.0-76.1) pg/mL Imaging Data Chest x-ray: Radiologist's impression: No acute process seen in the chest, mild hypoinflated lung ECG Data Attestation: I personally reviewed and interpreted this ECG as follows: (Initial EKG on my interpretation shows atrial fibrillation with RVR, rate 190) Critical Care Time Critical Care Time Critical Care Time: Yes Total Critical Care Time: 45 Attestation: Due to the high probability of sudden and clinically significant deterioration in the patient's condition he/she required the highest level of my preparedness to intervene urgently I provided critical care time including documentation time, medication orders and management, reevaluation, vital sign assessment, ordering and reviewing of lab tests, ordering and reviewing of x-ray studies, and admission orders. Aggregate critical care time is 45 minutes including only time during which I was engaged in work directly related to his/her care and did not include time spent treating other patients simultaneously. Discharge Plan Discharge Chief Complaint: Arrhythmia/Palpitations Clinical Impression: Atrial fibrillation, Gastroenteritis, Dehydration Patient Disposition: Admitted As Inpatient Time of Disposition Decision: 08:14 Condition: Fair
[2024-12-30 08:48] LABS: Thyroid Stimulating Hormone 1.714 uIU/mL (0.358-3.740)
--- NOTE | 2024-12-30 10:30 | SWNOTE1 ---
DALTON called and spoke to Rachel at [facility] to see if pt was there skilled or care home. Pt is there skilled. SW to speak with pt.
--- NOTE | 2024-12-30 10:45 | SWNOTE1 ---
SW and I met with pt in room to discuss d/c needs. was at bedside as well. Pt is from the [facility] skilled. SW asked pt if he planned to return to [facility] at d/c. Pt's voiced she doesn't really know the plan right now. SW did ask if it was okay to send updates to the [facility] for now, pt's voiced yes. SW to send daily updates to [facility] and follow pt as needed.
--- NOTE | 2024-12-30 10:50 | SWNOTE1 ---
Important Message from [employer] reviewed and discussed with patient. Pt. verbalized understanding and signed the form. Original given to patient and copy placed in patient?s chart.
--- NOTE | 2024-12-30 11:33 | SWNOTE1 ---
Pt's did inform SW that [facility] will have his Advanced Directive paperwork. DALTON reached out to Rachel at [facility] and they do have it. Rachel sent it over. DALTON placed Advanced Directives in chart.
[2024-12-30] MEDS: MAGNESIUM OXIDE 400 MG TABLET G-TUBE ×2 (11:48→20:39)
[2024-12-30] MEDS: INSULIN ASPART 300 UNIT/3 ML PEN SUBQ ×2 (11:48→16:56)
[2024-12-30] MEDS: METOPROLOL TARTRATE 50 MG TABLET G-TUBE ×2 (11:48→20:39)
[2024-12-30] MEDS: PANTOPRAZOLE SODIUM 40 MG VIAL IV (11:48)
[2024-12-30] MEDS: ASPIRIN 81 MG TAB.CHEW FEED TUBE (11:48)
[2024-12-30] MEDS: PAROXETINE HCL 20 MG TABLET PO (11:50)
--- NOTE | 2024-12-30 12:37 | PM.HP ---
HPI H&P: HPI History of Present Illness Chief complaint: NAUSEA/VOMITING,AFIB,GASTROENTERITIS,DEHYDRATION Narrative: Mr. Adames is a 79-year-old gentleman who has been at the assisted since October. Patient was sent to the emergency room for an evaluation of vomiting, diarrhea. Patient was found to have A-fib with RVR. Heart rate 180. Patient was initially started on amiodarone drip in the emergency room department. I had accepted him for further inpatient evaluation and treatment. Patient denies any chest pain. Patient denies any abdominal pain. Reported having diarrhea over the last few days. No hematemesis or melena. Opioid HPI Opioid Management Most Recent Pain and Opioid Data: Last Pain Assessment Today, 11:00 Last ORT Total Score 0 Today, 10:04 Last ORT Risk Category Low Risk Today, 10:04 Review of Systems ROS Status of ROS 10 or more systems reviewed and unremarkable except as noted in history and below 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 (ICD-10) Cirrhosis of liver ?K74.60 - Unspecified cirrhosis of liver (ICD-10) Acute kidney failure ?N17.9 - Acute kidney failure, unspecified (ICD-10) Pneumonia ?J18.9 - Pneumonia, unspecified organism (ICD-10) Social History Highest level of school completed/degree received: high school graduate Little interest or pleasure in doing things: not at all Feeling down, depressed, or hopeless: not at all Meds Home Medications and Allergies Home Medications ?Medication ?Instructions ?Recorded ?Confirmed ?Type acetaminophen 500 mg tablet 500 mg feeding tube Q6H PRN PAIN 12/30/24 12/30/24 History 1-6 albuterol sulfate 2.5 mg/3 mL 2.5 mg inhalation TID 12/30/24 12/30/24 History (0.083 %) solution for nebulization aspirin 81 mg tablet 81 mg PO DAILY 12/30/24 12/30/24 History bumetanide 1 mg tablet 1 mg feeding tube DAILY 12/30/24 12/30/24 History dapagliflozin propanediol 10 mg 10 mg feeding tube DAILY 12/30/24 12/30/24 History tablet (Farxiga) folic acid 1 mg tablet 1 mg feeding tube DAILY 12/30/24 12/30/24 History guaifenesin 100 mg/5 mL oral liquid 200 mg feeding tube Q6H 12/30/24 12/30/24 History insulin lispro 100 unit/mL 1 sliding scale dose subcut ACHS 12/30/24 12/30/24 History subcutaneous pen (Humalog KwikPen (U-100) Insulin) loperamide 2 mg tablet (Imodium 2 mg feeding tube TID PRN loose 12/30/24 12/30/24 History A-D) stool losartan 25 mg tablet (Cozaar) 25 mg feeding tube DAILY 12/30/24 12/30/24 History magnesium oxide 500 mg feeding tube BID 12/30/24 12/30/24 History metoprolol tartrate 100 mg tablet 50 mg feeding tube BID 12/30/24 12/30/24 History nitroglycerin 0.4 mg sublingual 0.4 mg sublingual Q5M 12/30/24 12/30/24 History tablet (Nitrostat) omeprazole 20 mg capsule,delayed 20 mg feeding tube DAILY 12/30/24 12/30/24 History release ondansetron 4 mg disintegrating 4 mg feeding tube Q6H PRN nausea 12/30/24 12/30/24 History tablet and vomiting paroxetine HCl 20 mg tablet (Paxil) 20 mg PO DAILY 12/30/24 12/30/24 History sennosides 8.6 mg-docusate sodium 1 tab-cap PO BID PRN constipation 12/30/24 12/30/24 History 50 mg tablet (Senna with Docusate Sodium) thiamine HCl (vitamin B1) 100 mg 100 mg PO DAILY 12/30/24 12/30/24 History capsule warfarin 5 mg tablet 10 mg feeding tube .QD 12/30/24 12/30/24 History Allergies Allergy/AdvReac Type Severity Reaction Status Date / Time celecoxib Allergy Unknown Unknown Verified 12/30/24 06:28 niacin Allergy Unknown Unknown Verified 12/30/24 06:28 prasugrel Allergy Unknown Unknown Verified 12/30/24 06:28 Exam Narrative Exam Narrative: [pt is awake and alert. oriented to place, time and person HEENT: [place] conjunctiva and NL buccal mucosa Neck: Supple, no tenderness Endocrine: No Thyromegaly. Vascular: No JVD or carotid bruit. Lymphatic: No cervical lymphadenopathy. Chest: Clear to auscultation Heart irregular and tachycardic. Abd: Soft, no tenderness, no rebound and no rigidity. Increase abd girth therefore clinically I could not exclude the possibility of intra abd mass or organomegaly. Patient has PEG tube in the epigastric area. LE: No cyanosis or clubbing, no varices or edema. Neuro: Patient is awake and alert. Moderate, 2+. Able to answer yes/no questions. Unable to provide details. His is providing details. Moderate functional loss. No unilateral deficit []] Constitutional Vital Signs, click to edit/add: Last Vital Signs Temp 98 F 12/30/24 12:00 Pulse 112 H 12/30/24 12:00 Resp 16 12/30/24 12:00 BP 123/82 12/30/24 12:00 Pulse Ox 97 12/30/24 12:00 O2 Del Method Room Air 12/30/24 12:00 Results Labs Labs: Short CBC 12/30/24 Range/Units 06:20 WBC 6.3 (4.0-11.0) 10^3/uL Hgb 16.2 (14.0-18.0) g/dL Hct 48.7 (42.0-54.0) % Plt Count 247 (150-450) 10^3/uL BMP 12/30/24 06:20 Sodium 144 Potassium 4.4 Chloride 101 Carbon Dioxide 31.8 BUN 52.0 H Creatinine 1.57 H Glucose 236 H Calcium 9.7 Assessment and Plan Assessment and Plan (1) Atrial fibrillation with RVR: (2) LOUISA (acute kidney injury): (3) Dehydration: (4) Diarrhea: (5) Cerebral arteriosclerosis with history of previous stroke: (6) Dysphagia: (7) On tube feeding diet: (8) Hyperglycemia: Plan A-fib with RVR On Cardizem drip. Resume home metoprolol. Resume home Coumadin. INR goal is 2-3. 1 dose of digoxin Troponin is negative. Patient may have underlying CAD but at this time, no clinical evidence of ACS. May need elective ischemic evaluation Echocardiogram to assess cardiac function and rule out valvular disease. May require antiarrhythmic LOUISA. Likely hemodynamically mediated secondary to tachycardia and diminished renal perfusion. Furthermore, patient is having diarrhea. Could be contributing to volume loss and acute kidney injury while patient is taking ARB Hold ARB and diuretics Gentle IV fluid infusion. Hyperglycemia No previous A1c. Patient is on fark [employer] which could be related to his kidney or heart condition. Requested A1c. Start patient on sliding scale coverage Diarrhea. No abdominal pain to suggest colitis Could be viral enteritis versus functional. Could be side effect to tube feed. Requested stool culture and C. difficile. Gentle IV fluid infusion. No strong indication for abdominal imaging at this time unless patient develops abdominal pain, fever and/or leukocytosis. Dysphagia, PEG feed Hold feeds at this time due to diarrhea. History of stroke with cognitive and functional impairment Continue Coumadin. Patient is return back to the emergency room for any ongoing physical and cognitive training. CODE STATUS CCA Chronic medical conditions not listed above, incidental findings seen on labs and imaging. These would need to be addressed. Could be addressed when time and condition are appropriate. Could be addressed in the outpatient setting by PCP collaboration with other needed outpatient providers.
[2024-12-30] MEDS: DIGOXIN 500 MCG/2 ML AMPUL 250 MCG IV ×2 (12:38→19:52)
--- NOTE | 2024-12-30 12:56 | PM.CACN ---
History of Present Illness History of Present Illness Consult date: 12/30/24 Requesting physician: Gildardo Kiser Consult reason: atrial fibrillation Chief complaint: NAUSEA/VOMITING,AFIB,GASTROENTERITIS,DEHYDRATION Narrative: Per admit H&P: Mr. Adames is a 79-year-old gentleman who has been at the long term since October. Patient was sent to the emergency room for an evaluation of vomiting, diarrhea. Patient was found to have A-fib with RVR. Heart rate 180. Patient was initially started on amiodarone drip in the emergency room department. I had accepted him for further inpatient evaluation and treatment. Patient denies any chest pain. Patient denies any abdominal pain. Reported having diarrhea over the last few days. No hematemesis or melena. It appears that the patient had pneumonia back in October and was discovered to have swallowing difficulty; therefore a feeding tube was placed. 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 He has been on Coumadin for many years. He has not had to have a cardioversion in the past. It appears that he has paroxysmal atrial fibrillation. On questioning, the patient denies recent chest pain, he has had no significant shortness of breath. He denies palpitations, he has had no lightheadedness, dizziness or syncope. He was on a Cardizem drip that had to be titrated up to 15mg/hr for 3 or 4 hours. He was given a dose of IV digoxin Review of Systems ROS Status of ROS 10 or more systems reviewed and unremarkable except as noted in history and below [facility] Medical History (Updated 12/30/24 @ 12:43 by Gildardo Kiser MD) Lymphedema ?I89.0 - Lymphedema, not elsewhere classified (ICD-10) Benign prostatic hyperplasia ?N40.0 - Benign prostatic hyperplasia without lower urinary tract symptoms (ICD-10) Diabetes mellitus ?E11.9 - Type 2 diabetes mellitus without complications (ICD-10) CVA (cerebral vascular accident) ?I63.9 - Cerebral infarction, unspecified (ICD-10) Hypertension ?I10 - Essential (primary) hypertension (ICD-10) 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 (ICD-10) Cirrhosis of liver ?K74.60 - Unspecified cirrhosis of liver (ICD-10) Acute kidney failure ?N17.9 - Acute kidney failure, unspecified (ICD-10) Pneumonia ?J18.9 - Pneumonia, unspecified organism (ICD-10) Social History Highest level of school completed/degree received: high school graduate Little interest or pleasure in doing things: not at all Feeling down, depressed, or hopeless: not at all Meds Home Medications and Allergies Home Medications ?Medication ?Instructions ?Recorded ?Confirmed ?Type acetaminophen 500 mg tablet 500 mg feeding tube Q6H PRN PAIN 12/30/24 12/30/24 History 1-6 albuterol sulfate 2.5 mg/3 mL 2.5 mg inhalation TID 12/30/24 12/30/24 History (0.083 %) solution for nebulization aspirin 81 mg tablet 81 mg PO DAILY 12/30/24 12/30/24 History bumetanide 1 mg tablet 1 mg feeding tube DAILY 12/30/24 12/30/24 History dapagliflozin propanediol 10 mg 10 mg feeding tube DAILY 12/30/24 12/30/24 History tablet (Farxiga) folic acid 1 mg tablet 1 mg feeding tube DAILY 12/30/24 12/30/24 History guaifenesin 100 mg/5 mL oral liquid 200 mg feeding tube Q6H 12/30/24 12/30/24 History insulin lispro 100 unit/mL 1 sliding scale dose subcut ACHS 12/30/24 12/30/24 History subcutaneous pen (Humalog KwikPen (U-100) Insulin) loperamide 2 mg tablet (Imodium 2 mg feeding tube TID PRN loose 12/30/24 12/30/24 History A-D) stool losartan 25 mg tablet (Cozaar) 25 mg feeding tube DAILY 12/30/24 12/30/24 History magnesium oxide 500 mg feeding tube BID 12/30/24 12/30/24 History metoprolol tartrate 100 mg tablet 50 mg feeding tube BID 12/30/24 12/30/24 History nitroglycerin 0.4 mg sublingual 0.4 mg sublingual Q5M 12/30/24 12/30/24 History tablet (Nitrostat) omeprazole 20 mg capsule,delayed 20 mg feeding tube DAILY 12/30/24 12/30/24 History release ondansetron 4 mg disintegrating 4 mg feeding tube Q6H PRN nausea 12/30/24 12/30/24 History tablet and vomiting paroxetine HCl 20 mg tablet (Paxil) 20 mg PO DAILY 12/30/24 12/30/24 History sennosides 8.6 mg-docusate sodium 1 tab-cap PO BID PRN constipation 12/30/24 12/30/24 History 50 mg tablet (Senna with Docusate Sodium) thiamine HCl (vitamin B1) 100 mg 100 mg PO DAILY 12/30/24 12/30/24 History capsule warfarin 5 mg tablet 10 mg feeding tube .QD 12/30/24 12/30/24 History Allergies Allergy/AdvReac Type Severity Reaction Status Date / Time celecoxib Allergy Unknown Unknown Verified 12/30/24 06:28 niacin Allergy Unknown Unknown Verified 12/30/24 06:28 prasugrel Allergy Unknown Unknown Verified 12/30/24 06:28 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1) mmol/L Chloride 101 (98-107) mmol/L Carbon Dioxide 31.8 (21.0-32.0) mmol/L BUN 52.0 H (7.0-18.0) mg/dL Creatinine 1.57 H (0.70-1.30) mg/dL Glucose 236 H (74-106) mg/dL Calcium 9.7 (8.5-10.1) mg/dL Intake and Output 12/29/24 12/30/24 12/30/24 23:59 07:59 15:59 Intake Total 100 / 100 1099.999 / 1099.999 Balance 100 / 100 1099.999 / 1099.999 Intake: IV 100 / 100 1099.999 / 1099.999 0.9 % Sodium Chloride 1,000 ml 1000 / 1000 @ 1000 mls/hr IV .Q1H ONE Rx#: [id number] Amiodarone in Dextrose,Iso-Osm 100 / 100 150 mg In 100 ml @ 600 mls/hr IV ONCE ONE Rx#:[id number] Amiodarone in Dextrose,Iso-Osm 59.999 / 59.999 360 mg In 200 ml @ 1 MG/MIN 33. 333 mls/hr IV ONCE ONE Rx#: [id number] dilTIAZem HCL 125 mg In 0.9 % 40 / 40 Sodium Chloride 100 ml @ 10 MG/ HR 10 mls/hr IV TITR MARQUES Rx#: [id number] Other: # Incontinent Bowel Movements 1 Weight 93.894 kg 85.8 kg Patient Weight 12/31/24 07:59 Weight 85.8 kg 12 lead EKG: Atrial fibrillation with rapid ventricular response, nonspecific ST-T wave abnormalities Assessment and Plan Assessment and Plan (1) Atrial fibrillation with RVR: Assessment and Plan: Based on prior charts, this appears to be paroxysmal (2) LOUISA (acute kidney injury): (3) Dehydration: (4) Diarrhea: (5) Cerebral arteriosclerosis with history of previous stroke: (6) Dysphagia: (7) On tube feeding diet: (8) Hyperglycemia: Plan 1. Routine labs: CBC, CMP, TSH and free T4 2. Adequate IV fluid hydration, strict input and outputs and daily weights 3. An echocardiogram is pending 4. Agree with IV Cardizem drip and transition to p.o. Cardizem 5. Continue anticoagulation given his [id number] score 6. His atrial fibrillation and tachycardic response is triggered by noncardiac comorbidities specifically vomiting, dehydration and acute kidney injury; heart rate between 100 220 bpm is acceptable given the presence of physiological stressors 7. Would not suggest pursuing rhythm control strategies at this time given the presence of a number of noncardiac comorbidities that we will drive recurrent atrial fibrillation 8. Treat noncardiac comorbidities as clinically appropriate 9. 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
[2024-12-30] MEDS: DOXYCYCLINE HYCLATE 100 MG in 0.9 % SODIUM CHLORIDE 100 ML IV (13:06)
[2024-12-30] MEDS: DIPHENOXYLATE HCL 2.5 MG/ATROPINE 0.025 MG TABLET 1 TAB PO (13:07)
[2024-12-30 13:18] LABS: C. Difficile PCR NEGATIVE
[2024-12-30] MEDS: WARFARIN SODIUM 5 MG TABLET 10 MG FEED TUBE (16:55)
--- NOTE | 2024-12-30 17:32 | W.PM.WC ---
Wound Consult Note Assessment and Plan (1) Atrial fibrillation with RVR: (2) LOUISA (acute kidney injury): (3) Dehydration: (4) Diarrhea: (5) Cerebral arteriosclerosis with history of previous stroke: (6) Dysphagia: (7) On tube feeding diet: (8) Hyperglycemia: Plan Consult: Buttocks ulcer, skin assessment Patient seen today for concerns with skin to buttocks and scrotal area. Patient has had loose, liquid stools which appears to be causing incontinence associated dermatitis to his scrotal skin. Skin is inflammed and patient states is painful. He is currently having liquid stools, bedside RN is assisting patient with pericare. Upon inspection of buttocks skin. Overall skin is excoriated from stooling. Does have areas of nonblanching darkened skin but does not appear from pressure, more like scarring in nature. I would not recommend a foam border dressing as these would become soiled frequently and could cause more damage to patient's skin and reposition patient more frequently to assist if there is a pressure component to the skin irritation. Bilateral heels, bilateral elbows intact. Denies any other issues. His legs are cool to touch and has skin changes consistent with vascular disease. At risk for heel pressure ulcers. Heels are dry, intact. Continue off loading. Recommendations: Apply thin layer of triad paste to patient's red, excoriated skin to his scrotum and buttocks. Frequent pericare as needed. Reposition patient frequently. Waffle cushion to chair while sitting, place in bed to assist with air flow and pressure relief. Photos in chart from bedside RN. Please call [phone] with any questions or concerns. Gee Vera, RN, CWON
[2024-12-30] MEDS: METOPROLOL TARTRATE 5 MG/5 ML VIAL IVP (17:51)
[2024-12-30] MEDS: DOXYCYCLINE MONOHYDRATE 100 MG CAPSULE PO (20:38)
[2024-12-30] MEDS: ACETAMINOPHEN 500 MG TABLET FEED TUBE (20:39)
[2024-12-31] VITALS (91 sets, daily range): BP systolic 89–140; BP diastolic 50–90; PULSE 71–109; TEMP 36.6–36.8; O2SAT 94–97
[2024-12-31 06:05] LABS: Hematocrit 45.5 % (42.0-54.0); Hemoglobin 14.9 g/dL (14.0-18.0); Mean Corpuscular HGB Conc 32.7 g/dL (29.9-35.2); Mean Corpuscular Hemoglobin 28.8 pg (25.9-34.0); Mean Corpuscular Volume 88.0 fL (80.0-94.0); Platelet Count 144 10^3/uL (150-450); Red Blood Count 5.17 10^6/uL (4.70-6.10); White Blood Count 10.5 10^3/uL (4.0-11.0)
[2024-12-31] MEDS: PANTOPRAZOLE SODIUM 40 MG VIAL IV (06:23)
[2024-12-31 07:31] LABS: Anion Gap 16.2; Blood Urea Nitrogen 58.0 mg/dL (7.0-18.0); Calcium 9.3 mg/dL (8.5-10.1); Carbon Dioxide 29.5 mmol/L (21.0-32.0); Chloride 108 mmol/L (98-107); Estimated GFR (African America 52 (>=60 mL/min/1.73m^2); Estimated GFR (Non-African Ame 43 (>=60 mL/min/1.73m^2); Glucose 150 mg/dL (74-106); Potassium 3.7 mmol/L (3.5-5.1); Sodium 150 mmol/L (136-145)
[2024-12-31 07:37] LABS: INR 3.09; Prothrombin Time 29.3 sec (9.0-11.6)
[2024-12-31 07:43] LABS: Magnesium 2.0 mg/dL (1.8-2.4)
[2024-12-31] MEDS: DEXTROSE 5 % IN WATER 1,000 ML 75 ML IV (08:29)
[2024-12-31] MEDS: DOXYCYCLINE MONOHYDRATE 100 MG CAPSULE FEED TUBE ×2 (08:29→23:02)
[2024-12-31] MEDS: INSULIN ASPART 300 UNIT/3 ML PEN SUBQ ×4 (08:30→23:15)
[2024-12-31] MEDS: PAROXETINE HCL 20 MG TABLET FEED TUBE (08:30)
[2024-12-31] MEDS: ASPIRIN 81 MG TAB.CHEW FEED TUBE (08:30)
[2024-12-31] MEDS: METOPROLOL TARTRATE 50 MG TABLET G-TUBE ×2 (08:30→23:02)
[2024-12-31] MEDS: MAGNESIUM OXIDE 400 MG TABLET G-TUBE ×2 (08:30→23:02)
--- NOTE | 2024-12-31 12:21 | P.PN_ITS ---
Progress Note: Subjective Subjective Interval history: Patient is feeling better. Patient is no longer vomiting. Nursing did not report patient has diarrhea. Patient denies any abdominal pain. 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 Constitutional Vital Signs, click to edit/add: Last Vital Signs Temp 98.1 F 12/31/24 07:45 Pulse 78 12/31/24 11:59 Resp 22 H 12/31/24 10:20 BP 104/52 12/31/24 10:01 Pulse Ox 94 L 12/31/24 10:22 O2 Del Method Room Air 12/31/24 10:22 Progress Note: Objective Labs Labs: Short CBC 12/31/24 Range/Units 05:30 WBC 10.5 (4.0-11.0) 10^3/uL Hgb 14.9 (14.0-18.0) g/dL Hct 45.5 (42.0-54.0) % Plt Count 144 L (150-450) 10^3/uL BMP 12/31/24 06:45 Sodium 150 H Potassium 3.7 Chloride 108 H Carbon Dioxide 29.5 BUN 58.0 H Creatinine 1.58 H Glucose 150 H Calcium 9.3 Progress Note: A&P Assessment and Plan (1) Atrial fibrillation with RVR: (2) LOUISA (acute kidney injury): (3) Dehydration: (4) Diarrhea: (5) Cerebral arteriosclerosis with history of previous stroke: (6) Dysphagia: (7) On tube feeding diet: (8) Hyperglycemia: Plan A-fib with RVR On Cardizem drip on and off over the last 24 hours Resumed home metoprolol. Resume home Coumadin. INR goal is 2-3. Status post 2 intravenous doses of digoxin. Troponin is negative. Patient may have underlying CAD but at this time, no clinical evidence of ACS. Patient now is Cardizem drip at 5 mg an hour. Discontinue drip and start him on daily dose of digoxin. Echocardiogram is pending. Continue Coumadin dosing management to keep INR between 2 and 3. Patient may need ischemic evaluation to be addressed by cardiology team [employer] did not recommend antiarrhythmic at this time LOUISA. Likely hemodynamically mediated secondary to tachycardia and diminished renal perfusion. Furthermore, patient is having diarrhea. Could be contributing to volume loss and acute kidney injury while patient is taking ARB Hold ARB and diuretics Gentle IV fluid infusion. Hyponatremia. Likely caused by water loss. Change IV fluid to D5 water. Repeat BMP at 1800. Repeat BMP tomorrow. Hyperglycemia No previous A1c. Patient is on Farxiga which could be related to his kidney or heart condition. Requested A1c. Start patient on sliding scale coverage Diarrhea. No abdominal pain to suggest colitis Resolution of nausea, vomiting and diarrhea by this morning. Could be viral enteritis versus functional. Could be side effect to tube feed. Requested stool culture and C. difficile. Gentle IV fluid infusion. No strong indication for abdominal imaging at this time unless patient develops abdominal pain, fever and/or leukocytosis. Resume tube feed Dysphagia, PEG feed Hold feeds at this time due to diarrhea. History of stroke with cognitive and functional impairment Continue Coumadin. Patient is return back to the emergency room for any ongoing physical and cognitive training. CODE STATUS CCA Chronic medical conditions not listed above, incidental findings seen on labs and imaging. These would need to be addressed. Could be addressed when time and condition are appropriate. Could be addressed in the outpatient setting by PCP collaboration with other needed outpatient providers.
[2024-12-31] MEDS: DIGOXIN 125 MCG TABLET 250 MCG G-TUBE (13:48)
[2024-12-31] MEDS: 0.9 % SODIUM CHLORIDE 500 ML 250 ML IV (14:08)
[2024-12-31] MEDS: JEVITY 1.5 CAL 237 ML LIQUID PO ×2 (14:08→23:01)
--- NOTE | 2024-12-31 14:30 | CA_ITS ---
Patient Name: SHEEBA REEVES MR#: [id number] : 1945 Exam Date: 12/31/2024 Ordering Doctor: DR. ALYSSA PAIGE M.D. ECHOCARDIOGRAM REPORT PROCEDURE: CA ECHO W/ CON INDICATIONS: EF COMPARISON: None. DESCRIPTION: COMPLETE ECHOCARDIOGRAM Real-time transthoracic echocardiography with 2D, M-mode, spectral and color flow Doppler performed. QUALITY: Lumason contrast was administered due to suboptimal imaging for left ventricular opacification to improve delineation of endocardial boarders, but quality of study remained poor. LEFT VENTRICLE: Appears to be moderately reduced in global fashion, EF is probably around 40% LV EF: DIASTOLIC: ATRIAL SEPTUM: LEFT ATRIUM: RIGHT ATRIUM: RIGHT VENTRICLE: TRICUSPID VALVE: MITRAL VALVE: AORTIC VALVE: AORTIC ROOT: PULMONIC VALVE: PERICARDIUM: IVC: PLEURA: CONCLUSION: Technically very difficult study with poor endocardium definition even withLumason LV systolic function is reduced with EF approximately around 40% Consider another modality to evaluate EF in the future Adult Echocardiography Procedure Report Left Ventricle LVEDD (3.7 - 5.6 cm): LVESD (2.2 - 4.0 cm): LVIVS thickness (0.6 - 1.2 cm): LVPW thickness (0.5 - 1.0 cm): e': E - e': LVOT Max Gradient: LVOT Area (cm2): Peak Velocity (LVOT): Mean Velocity (LVOT): LVOT Diameter Left Ventricular Ejection Fraction: Left Atrium LA Volume Index (2D A2C): Left Atrium Systolic Dimension: Mitral Valve MV E to A Ratio: MV Max Gradient: MV Mean Gradient: Mitral Valve A-Wave Peak Velocity: Mitral Valve E-Wave Peak Velocity: Cardiovascular Orifice Area: Right Ventricle RV Internal Diastolic Dimension: Aorta AO Root Diam: Ascending Ao Diam: Aortic Valve AoV Area (Peak Emmett): AoV Area (VTI): Deceleration [place]: Pressure Half-Time: Peak Velocity(Antegrade Flow): Peak Gradient(Antegrade Flow): Mean Velocity(Antegrade Flow): Mean Gradient(Antegrade Flow): Velocity Time Integral: Tricuspid Valve Peak Velocity (Regurgitant Flow): Peak Velocity: Pulmonic Valve Mean Gradient: Mean Velocity: Peak Velocity: Peak Gradient: Right Atrium Right Atrium Systolic Pressure: Dictated by: Alyssa Paige MD on 12/31/2024 at 17:18 Approved by: Alyssa Paige MD on 12/31/2024 at 17:27
[2024-12-31] MEDS: SULFUR HEXAFLUORIDE MICROSPHR 25 MG/5 ML VIAL IV (15:19)
--- NOTE | 2024-12-31 15:30 | SWNOTE1 ---
SW sent updates to [place] and took packet to the floor. Pt can return to [place] once medically stable.
--- NOTE | 2024-12-31 17:20 | NUTR.NU ---
Recommend gradual increase of enteral feeding as tolerated to goal rate of 60 mL/hour continuous feed, Jevity 1.5 formula. This will provide 2160 kcal, 92 gm PRO, 1094 mL free water in 1440 mL TV. Increase water flushes to 125 mL q4 hours; TV 750 mL q24 hours. Hold TF if >100 mL residuals.
[2024-12-31 18:25] LABS: Anion Gap 8.5; Blood Urea Nitrogen 57.0 mg/dL (7.0-18.0); Calcium 9.2 mg/dL (8.5-10.1); Carbon Dioxide 31.8 mmol/L (21.0-32.0); Chloride 108 mmol/L (98-107); Estimated GFR (African America 56 (>=60 mL/min/1.73m^2); Estimated GFR (Non-African Ame 46 (>=60 mL/min/1.73m^2); Glucose 193 mg/dL (74-106); Potassium 3.3 mmol/L (3.5-5.1); Sodium 145 mmol/L (136-145)
[2024-12-31] MEDS: SODIUM CHLORIDE 0.45 % 1,000 ML 80 ML IV (23:01)
[2025-01-01] VITALS (18 sets, daily range): BP systolic 116–131; BP diastolic 69–90; PULSE 73–105; TEMP 36.6–36.8; O2SAT 94–96
[2025-01-01] MEDS: PANTOPRAZOLE SODIUM 40 MG VIAL IV (05:54)
[2025-01-01 06:50] LABS: INR 2.85; Prothrombin Time 27.2 sec (9.0-11.6)
[2025-01-01 07:03] LABS: Alanine Aminotransferase 24 U/L (16-63); Albumin Globulin Ratio 0.4; Albumin Level 1.9 g/dL (3.4-5.0); Alkaline Phosphatase 127 U/L (46-116); Anion Gap 15.4; Aspartate Amino Transferase 16 U/L (15-37); Blood Urea Nitrogen 57.0 mg/dL (7.0-18.0); Calcium 9.0 mg/dL (8.5-10.1); Carbon Dioxide 26.9 mmol/L (21.0-32.0); Chloride 110 mmol/L (98-107); Estimated GFR (African America 60 (>=60 mL/min/1.73m^2); Estimated GFR (Non-African Ame 49 (>=60 mL/min/1.73m^2); Globulin 4.6 g/dL; Glucose 199 mg/dL (74-106); Potassium 3.3 mmol/L (3.5-5.1); Sodium 149 mmol/L (136-145); Total Protein 6.5 g/dL (6.4-8.2)
[2025-01-01] MEDS: PAROXETINE HCL 20 MG TABLET FEED TUBE (09:36)
[2025-01-01] MEDS: METOPROLOL TARTRATE 50 MG TABLET G-TUBE (09:36)
[2025-01-01] MEDS: ASPIRIN 81 MG TAB.CHEW FEED TUBE (09:36)
[2025-01-01] MEDS: DOXYCYCLINE MONOHYDRATE 100 MG CAPSULE FEED TUBE (09:36)
[2025-01-01] MEDS: DIGOXIN 125 MCG TABLET 250 MCG G-TUBE (09:36)
[2025-01-01] MEDS: MAGNESIUM OXIDE 400 MG TABLET G-TUBE ×2 (09:36→21:39)
[2025-01-01] MEDS: JEVITY 1.5 CAL 237 ML LIQUID PO ×2 (09:37→17:57)
[2025-01-01] MEDS: INSULIN ASPART 300 UNIT/3 ML PEN SUBQ ×2 (09:38→14:02)
--- NOTE | 2025-01-01 09:53 | P.PN_ITS ---
Progress Note: Subjective Subjective Interval history: Patient is feeling better. Patient is no longer vomiting. Nursing did not report patient has diarrhea. Patient denies any abdominal pain. Exam Narrative Exam Narrative: Patient is feeling well. Less sputum production. Denies any abdominal pain. No further nausea and vomiting. Nurse reported that patient continues to have loose stool. No distress. Chest is clear, heart is irregular. Heart rate is hovering between 95 and 105. Abdomen is soft, nontender. PEG tube is in the epigastric area. Lower extremities showed no edema. Hyperpigmentation from the mid ko down to the ankle. Constitutional Vital Signs, click to edit/add: Last Vital Signs Temp 98.2 F 01/01/25 09:51 Pulse 97 H 01/01/25 09:51 Resp 18 01/01/25 09:51 BP 131/80 01/01/25 09:51 Pulse Ox 94 L 01/01/25 09:51 O2 Del Method Room Air 01/01/25 09:51 Progress Note: Objective Labs Labs: [facility] 12/31/24 01/01/25 18:07 06:12 Sodium 145 149 H Potassium 3.3 L 3.3 L Chloride 108 H 110 H Carbon Dioxide 31.8 26.9 BUN 57.0 H 57.0 H Creatinine 1.48 H 1.39 H Glucose 193 H 199 H Calcium 9.2 9.0 Liver Function 01/01/25 Range/Units 06:12 Total Bilirubin 0.9 (0.2-1.0) mg/dL AST 16 (15-37) U/L ALT 24 (16-63) U/L Alkaline Phosphatase 127 H (46-116) U/L Albumin 1.9 L (3.4-5.0) g/dL Progress Note: A&P Assessment and Plan (1) Atrial fibrillation with RVR: (2) LOUISA (acute kidney injury): (3) Dehydration: (4) Diarrhea: (5) Cerebral arteriosclerosis with history of previous stroke: (6) Dysphagia: (7) On tube feeding diet: (8) Hyperglycemia: Plan A-fib with RVR On Cardizem drip on and off over the last 24 hours Resumed home metoprolol. Resume home Coumadin. INR goal is 2-3. Status post 2 intravenous doses of digoxin. Troponin is negative. Patient may have underlying CAD but at this time, no clinical evidence of ACS. Patient now is Cardizem drip at 5 mg an hour. Discontinued drip and start him on daily dose of digoxin. Echocardiogram does not show cardiomyopathy or significant valvular disease.. Continue Coumadin dosing management to keep INR between 2 and 3. Patient may need ischemic evaluation to be addressed by cardiology team Utility Mechanic did not recommend antiarrhythmic at this time Heart rate is under better control. Off Cardizem drip. Still heart rate hovering between 95 and 105. Increased Lopressor up to 75 twice daily. LOUISA. Likely hemodynamically mediated secondary to tachycardia and diminished renal perfusion. Improved LOUISA. Furthermore, patient is having diarrhea. Could be contributing to volume loss and acute kidney injury while patient is taking ARB Hold ARB and diuretics Gentle IV fluid infusion. Hypernatremia. Likely caused by water loss. Resolution of the hyponatremia Hyperglycemia No previous A1c. Patient is on Farxiga which could be related to his kidney or heart condition. Requested A1c. Start patient on sliding scale coverage Diarrhea. No abdominal pain to suggest colitis Resolution of nausea, vomiting and diarrhea by this morning. Could be viral enteritis versus functional. Could be side effect to tube feed. Requested stool culture and C. difficile. These are negative thus far Gentle IV fluid infusion. No strong indication for abdominal imaging at this time unless patient develops abdominal pain, fever and/or leukocytosis. Resume tube feed Dysphagia, PEG feed Hold feeds at this time due to diarrhea. History of stroke with cognitive and functional impairment Continue Coumadin. Patient is return back to the emergency room for any ongoing physical and cognitive training. CODE STATUS CCA Chronic medical conditions not listed above, incidental findings seen on labs and imaging. These would need to be addressed. Could be addressed when time and condition are appropriate. Could be addressed in the outpatient setting by PCP collaboration with other needed outpatient providers.
[2025-01-01] MEDS: DIPHENOXYLATE HCL 2.5 MG/ATROPINE 0.025 MG TABLET 1 TAB PO ×2 (14:00→21:39)
[2025-01-01] MEDS: METOPROLOL TARTRATE 25 MG TABLET G-TUBE (14:00)
[2025-01-01] MEDS: POTASSIUM CHLORIDE 10 MEQ ER TABLET 20 MEQ PO (14:01)
[2025-01-01] MEDS: WARFARIN SODIUM 5 MG TABLET 7.5 MG FEED TUBE (17:56)
[2025-01-02] VITALS (22 sets, daily range): BP systolic 116–139; BP diastolic 68–78; PULSE 42–92; TEMP 36.3–36.6; O2SAT 94–99
[2025-01-02] MEDS: JEVITY 1.5 CAL 237 ML LIQUID PO ×3 (03:10→21:20)
[2025-01-02] MEDS: PANTOPRAZOLE SODIUM 40 MG VIAL IV (05:37)
[2025-01-02] MEDS: DIPHENOXYLATE HCL 2.5 MG/ATROPINE 0.025 MG TABLET 1 TAB PO (05:37)
[2025-01-02 07:06] LABS: Anion Gap 13.5; Blood Urea Nitrogen 45.0 mg/dL (7.0-18.0); Calcium 9.2 mg/dL (8.5-10.1); Carbon Dioxide 29.1 mmol/L (21.0-32.0); Chloride 114 mmol/L (98-107); Estimated GFR (African America >60 (>=60 mL/min/1.73m^2); Estimated GFR (Non-African Ame >60 (>=60 mL/min/1.73m^2); Glucose 169 mg/dL (74-106); Potassium 3.6 mmol/L (3.5-5.1); Sodium 153 mmol/L (136-145)
[2025-01-02 07:19] LABS: INR 1.99; Prothrombin Time 19.7 sec (9.0-11.6)
[2025-01-02] MEDS: METOPROLOL TARTRATE 50 MG TABLET 75 MG G-TUBE (09:50)
[2025-01-02] MEDS: MAGNESIUM OXIDE 400 MG TABLET G-TUBE ×2 (09:50→21:20)
[2025-01-02] MEDS: ASPIRIN 81 MG TAB.CHEW FEED TUBE (09:50)
[2025-01-02] MEDS: DIGOXIN 125 MCG TABLET 250 MCG G-TUBE (09:50)
[2025-01-02] MEDS: INSULIN ASPART 300 UNIT/3 ML PEN SUBQ ×3 (09:51→21:37)
[2025-01-02] MEDS: PAROXETINE HCL 20 MG TABLET FEED TUBE (09:51)
--- NOTE | 2025-01-02 10:43 | PM.PN ---
Progress Note: Subjective Subjective Interval history: Patient is feeling better. Patient is no longer vomiting. Nursing did not report patient has diarrhea. Patient denies any abdominal pain. Exam Narrative Exam Narrative: Patient is feeling well. Less sputum production. Denies any abdominal pain. No further nausea and vomiting. Nurse reported that patient continues to have loose stool. No distress. Chest is clear, heart is irregular. Heart rate is hovering between 95 and 105. Abdomen is soft, nontender. PEG tube is in the epigastric area. Lower extremities showed no edema. Hyperpigmentation from the mid ko down to the ankle. Constitutional Vital Signs, click to edit/add: Last Vital Signs Temp 97.8 F 01/02/25 04:00 Pulse 84 01/02/25 10:00 Resp 16 01/02/25 10:00 BP 139/77 01/02/25 10:00 Pulse Ox 98 01/02/25 10:00 O2 Del Method Room Air 01/02/25 10:00 Progress Note: Objective Labs Labs: [facility] 01/02/25 06:44 Sodium 153 H Potassium 3.6 Chloride 114 H Carbon Dioxide 29.1 BUN 45.0 H Creatinine 1.14 Glucose 169 H Calcium 9.2 Progress Note: A&P Assessment and Plan (1) Atrial fibrillation with RVR: (2) LOUISA (acute kidney injury): (3) Dehydration: (4) Diarrhea: (5) Cerebral arteriosclerosis with history of previous stroke: (6) Dysphagia: (7) On tube feeding diet: (8) Hyperglycemia: Plan A-fib with RVR On Cardizem drip on and off over the last 24 hours Resumed home metoprolol. Resume home Coumadin. INR goal is 2-3. Status post 2 intravenous doses of digoxin. Troponin is negative. Patient may have underlying CAD but at this time, no clinical evidence of ACS. Patient now is Cardizem drip at 5 mg an hour. Discontinued drip and start him on daily dose of digoxin. Echocardiogram does not show cardiomyopathy or significant valvular disease.. Continue Coumadin dosing management to keep INR between 2 and 3. Patient may need ischemic evaluation to be addressed by cardiology team [employer] Officer did not recommend antiarrhythmic at this time Heart rate is under better control. Heart rate is in the 70s on metoprolol 75 twice daily LOUISA. Likely hemodynamically mediated secondary to tachycardia and diminished renal perfusion. Improved LOUISA. Furthermore, patient is having diarrhea. Could be contributing to volume loss and acute kidney injury while patient is taking ARB Hold ARB and diuretics Resolved Hypernatremia. Likely caused by water loss. Recurrent hypernatremia. Continue water flush. Start patient on D5 water Hyperglycemia No previous A1c. Patient is on Farxiga which could be related to his kidney or heart condition. Requested A1c. Start patient on sliding scale coverage Diarrhea. No abdominal pain to suggest colitis Resolution of nausea, vomiting and diarrhea by this morning. Could be viral enteritis versus functional. Could be side effect to tube feed. Requested stool culture and C. difficile. These are negative thus far Gentle IV fluid infusion. No strong indication for abdominal imaging at this time unless patient develops abdominal pain, fever and/or leukocytosis. Resume tube feed Dysphagia, PEG feed Hold feeds at this time due to diarrhea. History of stroke with cognitive and functional impairment Continue Coumadin. Patient is return back to the emergency room for any ongoing physical and cognitive training. CODE STATUS CCA Chronic medical conditions not listed above, incidental findings seen on labs and imaging. These would need to be addressed. Could be addressed when time and condition are appropriate. Could be addressed in the outpatient setting by PCP collaboration with other needed outpatient providers.
--- NOTE | 2025-01-02 11:00 | ECG_ITS ---
The [facility] Test Date: 2025-01-02 Pat Name: SHEEBA REEVES Department: Room: [facility] Gender: Male Hatch Tender: : 1945 Requested By: [id number] Order Number: [id number] Reading MD: CLAIRE NEGRO Measurements Intervals [place] Rate: 66 P: -93383 NH: -69849 QRS: 25 QRSD: 86 T: 44 QT: 352 QTc: 366 Interpretive Statements 1210 Atrial fibrillation 16878 Nonspecific Twave abnormality, probably digitalis effect 8102 Low QRS voltage in chest leads 9140 abnormal rhythm ECG No previous ECG available for comparison Electronically Signed On 01-04-2025 16:25:30 EDT by CLAIRE NEGRO
--- NOTE | 2025-01-02 11:10 | PC.NURSE ---
Dr. Kiser notified of bradycardic episodes
[2025-01-02] MEDS: POTASSIUM CHLORIDE 10 MEQ ER TABLET 30 MEQ G-TUBE (11:27)
[2025-01-02] MEDS: DEXTROSE 5 % IN WATER 1,000 ML 75 ML IV (11:28)
[2025-01-02] MEDS: WARFARIN SODIUM 4 MG TABLET 8 MG PO (16:35)
[2025-01-02] MEDS: METOPROLOL TARTRATE 50 MG TABLET G-TUBE (21:20)
[2025-01-02 22:50] LABS: Anion Gap 7.3; Blood Urea Nitrogen 40.0 mg/dL (7.0-18.0); Calcium 9.1 mg/dL (8.5-10.1); Carbon Dioxide 35.2 mmol/L (21.0-32.0); Chloride 113 mmol/L (98-107); Estimated GFR (African America >60 (>=60 mL/min/1.73m^2); Estimated GFR (Non-African Ame 58 (>=60 mL/min/1.73m^2); Glucose 174 mg/dL (74-106); Potassium 3.5 mmol/L (3.5-5.1); Sodium 152 mmol/L (136-145)
[2025-01-03] VITALS (8 sets, daily range): BP systolic 122–135; BP diastolic 70–74; PULSE 56–74; TEMP 36.3–36.8; O2SAT 91–98
[2025-01-03] MEDS: DEXTROSE 5 % IN WATER 1,000 ML 75 ML IV (02:12)
[2025-01-03] MEDS: PANTOPRAZOLE SODIUM 40 MG VIAL IV (05:14)
[2025-01-03] MEDS: JEVITY 1.5 CAL 237 ML LIQUID PO (05:14)
[2025-01-03 06:37] LABS: Anion Gap 9.7; Blood Urea Nitrogen 34.0 mg/dL (7.0-18.0); Calcium 9.0 mg/dL (8.5-10.1); Carbon Dioxide 31.2 mmol/L (21.0-32.0); Chloride 114 mmol/L (98-107); Estimated GFR (African America >60 (>=60 mL/min/1.73m^2); Estimated GFR (Non-African Ame >60 (>=60 mL/min/1.73m^2); Glucose 150 mg/dL (74-106); Potassium 3.9 mmol/L (3.5-5.1); Sodium 151 mmol/L (136-145)
[2025-01-03 06:38] LABS: INR 2.80; Prothrombin Time 26.8 sec (9.0-11.6)
[2025-01-03] MEDS: METOPROLOL TARTRATE 50 MG TABLET G-TUBE (08:40)
[2025-01-03] MEDS: ASPIRIN 81 MG TAB.CHEW FEED TUBE (08:40)
[2025-01-03] MEDS: INSULIN ASPART 300 UNIT/3 ML PEN SUBQ ×2 (08:40→12:00)
[2025-01-03] MEDS: MAGNESIUM OXIDE 400 MG TABLET G-TUBE (08:40)
[2025-01-03] MEDS: PAROXETINE HCL 20 MG TABLET FEED TUBE (08:40)
--- NOTE | 2025-01-03 08:40 | CM.NOTE ---
Rounds made with Dr. Kiser pt will discharge to [place] for skilled rehab.
--- NOTE | 2025-01-03 09:51 | SWNOTE1 ---
SW spoke to case management and pt is ready for discharge today.
--- NOTE | 2025-01-03 09:52 | P.DS_ITS ---
DS: Providers Provider Date of admission: 12/30/24 09:34 Primary care physician: SAHARA COSTELLO Consults: 12/30/24 Consult to Wound Care Routine Consulting Provider: Gee Vera Reason for consultation: buttock wounds 12/30/24 08:12 Consult to Cardiology Routine Reason for consultation: A fib RVR DS: Diagnosis Discharge Diagnosis (1) Atrial fibrillation with RVR: (2) LOUISA (acute kidney injury): (3) Dehydration: (4) Diarrhea: (5) Cerebral arteriosclerosis with history of previous stroke: (6) Dysphagia: (7) On tube feeding diet: (8) Hyperglycemia: Plan As listed above and others that are not listed DS: Summary Hospital Course Hospital Course: Mr. Adames is a 79-year-old gentleman was brought to the emergency room from the skilled nursing and was found to have the following A-fib with RVR On Cardizem drip on presentation which had been discontinued. Patient was started on oral beta-jeferson. We had to increase his dose up to metoprolol 75 twice daily twice a day but subsequently, patient started to have bradycardia prompting the decision to reduce it back to 50 mg twice daily. His heart rate now is mostly in the 60s. Patient is on Coumadin with therapeutic IN R. Cardiology did not recommend any additional inpatient diagnostic or therapeutic intervention LOIUSA. Resolved Likely hemodynamically mediated secondary to tachycardia and diminished renal perfusion. Improved LOUISA. Furthermore, patient is having diarrhea. Could be contributing to volume loss and acute kidney injury while patient is taking ARB Hold ARB and diuretics I requested that skilled nursing check BMP every Friday and to monitor his electrolytes and kidney function. Hypernatremia. Likely caused by water loss. Recurrent hypernatremia. Continue water flush. Patient had been treated with D5 water Increase water flush with tube feed up to 150 mL every 6 hours. I requested skilled nursing to check BMP every Friday and and adjusted water flush up and down to keep the sodium level between 135 and 145. Hyperglycemia No previous A1c. Patient is on Farxiga which could be related to his kidney or heart condition. This could be resumed Requested A1c. A1c 6.5 Start patient on sliding scale coverage Diarrhea. No abdominal pain to suggest colitis, resolved. Resolution of nausea, vomiting and diarrhea by this morning. Could be viral enteritis versus functional. Could be side effect to tube feed. Requested stool culture and C. difficile. These are negative thus far Status post IV fluid infusion which has been discontinued No strong indication for abdominal imaging at this time unless patient develops abdominal pain, fever and/or leukocytosis. Resume tube feed Dysphagia, PEG feed Tube feed has been resumed and tolerated. History of stroke with cognitive and functional impairment Continue Coumadin. Patient is return back to skilled nursing for any ongoing physical and cognitive training. CODE STATUS CCA Chronic medical conditions not listed above, incidental findings seen on labs and imaging. These would need to be addressed. Could be addressed when time and condition are appropriate. Could be addressed in the outpatient setting by PCP collaboration with other needed outpatient providers. Patient has multiple complex medical issues as listed above and others that are not listed. All appear to be stable. I do not have any clear or strong clinical justification to extend inpatient hospitalization. Patient however will require close and frequent monitoring as well as additional work-up, investigation and therapeutic intervention that could take place from this point on post discharge. That is to prevent relapse, decompensation, rehospitalization and other medical implications. I instructed patient to ask her primary care doctor to obtain [facility] record entirely to address abnormalities seen on labs and imaging that I have and have not addressed during this hospitalization, follow-up on pending blood work, imaging and pathology is if available and to follow-up on needed medical care in the outpatient setting. Time Spent with Patient Time attestation: Total time spent providing and/or coordinating discharge services: Time spent: greater than 30 minutes Exam Constitutional Vital Signs, click to edit/add: Last Vital Signs Temp 97.4 F L 01/03/25 08:11 Pulse 63 01/03/25 08:11 Resp 18 01/03/25 08:11 BP 135/74 01/03/25 08:11 Pulse Ox 98 01/03/25 08:11 O2 Del Method Room Air 01/03/25 08:11 DS: Data Data Completed and Pending Labs on day of discharge: Labs from last 24 hours 01/03/25 01/03/25 01/02/25 08:10 06:14 22:08 PT 26.8 H INR 2.80 Sodium 151 H 152 H Potassium 3.9 3.5 Chloride 114 H 113 H Carbon Dioxide 31.2 35.2 H Anion Gap 9.7 7.3 BUN 34.0 H 40.0 H Creatinine 1.15 1.21 Est GFR ( Amer) >60 >60 Est GFR (Non-Af Amer) >60 58 L BUN/Creatinine Ratio 29.6 33.1 Glucose 150 H 174 H Calcium 9.0 9.1 POC Glucose 160 H 01/02/25 01/02/25 01/02/25 21:18 15:58 11:43 PT INR Sodium Potassium Chloride Carbon Dioxide Anion Gap BUN Creatinine Est GFR ( Amer) Est GFR (Non-Af Amer) BUN/Creatinine Ratio Glucose Calcium POC Glucose 160 H 132 H 178 H Preliminary micro results at discharge 12/30/24 12:30 Lower Respiratory Culture - Preliminary Sputum - Expectorated Sputum Gram negative david Staphylococcus aureus Discharge Plan Discharge Disposition: er SNF Condition: Fair Assessment: I may not have addressed or treated all of your medical illnesses or the abnormal blood work or imaging studies during this hospitalization. Please ask y our primary care provider to obtain [facility] records entirely to follow up on all of the abnormal physical, laboratory, and imaging findings that I have not addressed. For skilled nursing providers. BMP and CBC every Friday and for 3 weeks to monitor his sodium level, electrolytes, kidney function, WBC and hemoglobin. Tube feed water flushes 125- 150 mL every 6 hours. Adjusted to keep sodium level between 135 and 145 PT and INR every Friday and or more frequent if needed. Adjust Coumadin dose to keep INR between 2 and 3. Continue tube feed as previously done prior to admission to the hospital. Please return back to the emergency room or seek medical attention if your symptoms worsen or return. Discharging you from [facility] does not mean that your medical care ends here and now. You may still need additional monitoring, work up, investigation, and treatment plan to be handled from this point on by out patient providers including your primary care provider and specialists. For any medication question, please contact your retail pharmacist or your primary care provider. Thank you. Discharge Medications: New metoprolol tartrate 50 mg Tablet 50 mg G-tube BID Qty: 0 0RF Glucagon Emergency Kit (human) 1 mg Recon Soln 1 mg IV Q15M PRN (Reason: Hypoglycemia) Qty: 0 0RF Insta-Glucose (with dextrin) 24 gram/31 gram Gel 31 g PO Q15M PRN (Reason: Hypoglycemia) Qty: 0 0RF Continued acetaminophen 500 mg tablet 500 mg feeding tube Q6H PRN (Reason: PAIN 1-6) aspirin 81 mg tablet 81 mg PO DAILY loperamide [Imodium A-D] 2 mg tablet 2 mg feeding tube TID PRN (Reason: loose stool) folic acid 1 mg tablet 1 mg feeding tube DAILY dapagliflozin propanediol [Farxiga] 10 mg tablet 10 mg feeding tube DAILY magnesium oxide 500 mg magnesium tablet 500 mg feeding tube BID nitroglycerin [Nitrostat] 0.4 mg tablet, sublingual 0.4 mg sublingual Q5M Rx Instructions: do not exceed 3 doses per episode omeprazole 20 mg capsule,delayed release(DR/EC) 20 mg feeding tube DAILY ondansetron 4 mg tablet,disintegrating 4 mg feeding tube Q6H PRN (Reason: nausea and vomiting) paroxetine HCl [Paxil] 20 mg tablet 20 mg PO DAILY sennosides-docusate sodium [Senna with Docusate Sodium] 8.6-50 mg tablet 1 tab-cap PO BID PRN (Reason: constipation) insulin lispro [Humalog KwikPen Insulin] 100 unit/mL insulin pen 1 sliding scale dose subcut ACHS Rx Instructions: BS < 60 CALL BS [phone] 2 UNITS BS [phone] 4 UNITS BS [phone] 6 UNITS BS [phone] 8 UNITS BS 351-400 10 UNITS BS > 400 CALL MD Changed guaifenesin 100 mg/5 mL liquid 200 mg feeding tube Q6H PRN (Reason: Cough) Qty: 0 0RF Discontinued albuterol sulfate 2.5 mg /3 mL (0.083 %) solution for nebulization 2.5 mg inhalation TID bumetanide 1 mg tablet 1 mg feeding tube DAILY losartan [Cozaar] 25 mg tablet 25 mg feeding tube DAILY metoprolol tartrate 100 mg tablet 50 mg feeding tube BID thiamine HCl (vitamin B1) 100 mg capsule 100 mg PO DAILY warfarin 5 mg tablet 10 mg feeding tube .QD Print Language: Portuguese Forms: Portal Instructions
--- NOTE | 2025-01-03 10:10 | SWNOTE1 ---
Faxed updates, d/c med rec, d/c summary to [facility]. Called and set up transportation with [facility] who will poultry picking machine tender at 12:20. SW let pt's nurse know of poultry picking machine tender time.
--- NOTE | 2025-01-03 10:12 | SWNOTE1 ---
SW let [facility] and nurse know dc time for pt.
--- NOTE | 2025-01-03 10:40 | SWNOTE1 ---
SW called pt's to notify her of time as well. Pt is going back to [facility].
--- NOTE | 2025-01-03 11:44 | CM.NOTE ---
2nd Important Message From Medicare discussed with pt, pt denies any questions or concerns.
== END 2025-01-03 12:47 | DRG 309 ==
LOC: ER 08:14 → MS 09:41
PROVIDERS: Internal Medicine; Admitting Provider Internal Medicine; Emergency Provider Emergency Medicine; Family Provider Internal Medicine; PCP Family Medicine; Visit Provider Internal Medicine
DX: I48.0 Paroxysmal atrial fibrillation (principal); E87.0 Hyperosmolality and hypernatremia; N17.9 Acute kidney failure, unspecified; E11.65 Type 2 diabetes mellitus with hyperglycemia; R19.7 Diarrhea, unspecified; E86.0 Dehydration; Z93.1 Gastrostomy status; I67.2 Cerebral atherosclerosis; R13.10 Dysphagia, unspecified; I69.319 Unspecified symptoms and signs involving cognitive functions following cerebral infarction; Z66 Do not resuscitate; Z79.4 Long term (current) use of insulin; Z79.899 Other long term (current) drug therapy; Z79.01 Long term (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; I10 Essential (primary) hypertension; Z87.01 Personal history of pneumonia (recurrent); R11.2 Nausea with vomiting, unspecified
CPT/HCPCS: 36415; 71045; 80048; 80053; 81001; 82948; 83036; 83735; 84443; 84484; 85007; 85027; 85610; 87045; 87046; 87070; 87186; 87205; 87427; 87493; 93005; 93306; 96365; 96366; 96368; 96376; 99285; C8929; J0283; J1160; Q9950

== ENCOUNTER 2025-01-30 10:40 | Emergency (ER) | payer MEDICARE, OTHER, SELFPAY ==
[2025-01-30] VITALS (22 sets, daily range): BP systolic 70–108; BP diastolic 40–73; PULSE 90–205; TEMP 37.2; O2SAT 88–99; BMI 34.4
--- NOTE | 2025-01-30 10:43 | ECG_ITS ---
The [facility] Test Date: 2025-01-30 Pat Name: SHEEBA REEVES Department: Room: - Gender: Male Fagoter: : 1945 Requested By: [id number] Order Number: [id number] Reading MD: CAMRON WHEELER M.D. Measurements Intervals [place] Rate: 190 P: -24676 NV: -94905 QRS: 36 QRSD: 212 T: 90 QT: 316 QTc: 413 Interpretive Statements Likely atrial fibrillation with aberrant conduction and rapid ventricular response 9150 abnormal ECG Compared to ECG 01/02/2025 11:03:57 Aberrant conduction and rapid ventricular response is now present Electronically Signed On 02-01-2025 14:03:03 EDT by CAMRON WHEELER M.D.
--- NOTE | 2025-01-30 10:45 | XR_ITS ---
The [address] [address] Patient Name: SHEEBA REEVES MRN: [id number] date: 1945 Sex: M Assigned Patient Location: ED.MAIN Current Patient Location: ED.MAIN Accession/Order Number: [id number] Exam Date: 01/30/2025 11:33 Report Date: 01/30/2025 11:33 At the request of: IVANA FUNES MD Procedure: XR chest 1V Single view chest: CLINICAL HISTORY: unresponsive COMPARISON: Chest 12/30/2024 FINDINGS: Examination is suboptimal due to chin placement. Cardiomegaly is unchanged. No definite consolidation pneumothorax or large pleural effusion or free air. XR/XR chest 1V IMPRESSION: SUBOPTIMAL STUDY. CARDIOMEGALY WITHOUT DEFINITIVE ACUTE PROCESS. Impression dictated by: Garcia Kinney Jr., D.OMary 01/30/2025 11:33 AM Dictation Location: [employer] Electronically authenticated by: [id number] Y Date: 01/30/2025 11:33
[2025-01-30] MEDS: METOPROLOL TARTRATE 5 MG/5 ML VIAL IVP ×2 (10:48→10:55)
[2025-01-30] MEDS: DILTIAZEM HCL 25 MG/5 ML VIAL 20 MG IV (10:57)
[2025-01-30 11:06] LABS: Hematocrit 40.7 % (42.0-54.0); Hemoglobin 12.6 g/dL (14.0-18.0); Immature Granulocytes Abs Auto 0.48 10^3/uL (0.00-0.03); Immature Granulocytes Pct Auto 2.4 % (0.0-0.5); Lymphocytes Absolute Auto 3.1 10^3/uL (1.2-3.8); Mean Corpuscular HGB Conc 31.0 g/dL (29.9-35.2); Mean Corpuscular Hemoglobin 29.4 pg (25.9-34.0); Mean Corpuscular Volume 95.1 fL (80.0-94.0); Platelet Count 205 10^3/uL (150-450); Red Blood Count 4.28 10^6/uL (4.70-6.10); White Blood Count 20.0 10^3/uL (4.0-11.0)
[2025-01-30] MEDS: 0.9 % SODIUM CHLORIDE 1,000 ML 1000 ML IV (11:15)
[2025-01-30 11:20] LABS: INR 1.54; Prothrombin Time 15.6 sec (9.0-11.6)
[2025-01-30] MEDS: NOREPINEPHRINE BITARTRATE/D5W 4 MG/250 ML PREMIX 30 MG IV (11:28)
[2025-01-30 11:29] LABS: Alanine Aminotransferase 211 U/L (16-63); Albumin Globulin Ratio 0.3; Albumin Level 1.8 g/dL (3.4-5.0); Alkaline Phosphatase 389 U/L (46-116); Anion Gap 24.9; Aspartate Amino Transferase 188 U/L (15-37); Blood Urea Nitrogen 30.0 mg/dL (7.0-18.0); Calcium 8.7 mg/dL (8.5-10.1); Carbon Dioxide 16.9 mmol/L (21.0-32.0); Chloride 109 mmol/L (98-107); Estimated GFR (African America 49 (>=60 mL/min/1.73m^2); Estimated GFR (Non-African Ame 40 (>=60 mL/min/1.73m^2); Globulin 5.4 g/dL; Glucose 318 mg/dL (74-106); Magnesium 2.4 mg/dL (1.8-2.4); Potassium 4.8 mmol/L (3.5-5.1); Sodium 146 mmol/L (136-145); Total Protein 7.2 g/dL (6.4-8.2)
[2025-01-30 11:31] LABS: Glucose Urine UA >=1000 mg/dL (NEGATIVE)
--- NOTE | 2025-01-30 11:32 | ED.AMS1 ---
HPI - Altered Mental Status General Chief Complaint: Arrhythmia/Palpitations Stated Complaint: unresponsive Time Seen by Provider: 01/30/25 10:44 Source: medical record Mode of arrival: ambulance Limitations: no limitations History of Present Illness HPI narrative: The [facility] with a unresponsive at the main reason for presentation apparently an hour before presenting to us the patient was provided with his medication but when the nurse came to evaluate him she found him unresponsive, patient by the EMS was found to have an elevated heart rate he is only responsive to painful stimuli and his blood pressure was nondetectable The patient upon arrival was was found to be tachycardic with heart rate around 200 he still can awaken easily when calling his name but he looks tired and weak and he did say that he is having chest pain when I asked him about it Related Data Home Medications ?Medication ?Instructions ?Recorded ?Confirmed acetaminophen 500 mg tablet 500 mg feeding tube Q6H PRN PAIN 12/30/24 12/30/24 1-6 aspirin 81 mg tablet 81 mg PO DAILY 12/30/24 12/30/24 dapagliflozin propanediol 10 mg 10 mg feeding tube DAILY 12/30/24 12/30/24 tablet (Farxiga) folic acid 1 mg tablet 1 mg feeding tube DAILY 12/30/24 12/30/24 insulin lispro 100 unit/mL 1 sliding scale dose subcut ACHS 12/30/24 12/30/24 subcutaneous pen (Humalog KwikPen (U-100) Insulin) loperamide 2 mg tablet (Imodium 2 mg feeding tube TID PRN loose 12/30/24 12/30/24 A-D) stool magnesium oxide 500 mg feeding tube BID 12/30/24 12/30/24 nitroglycerin 0.4 mg sublingual 0.4 mg sublingual Q5M 12/30/24 12/30/24 tablet (Nitrostat) omeprazole 20 mg capsule,delayed 20 mg feeding tube DAILY 12/30/24 12/30/24 release ondansetron 4 mg disintegrating 4 mg feeding tube Q6H PRN nausea 12/30/24 12/30/24 tablet and vomiting paroxetine HCl 20 mg tablet (Paxil) 20 mg PO DAILY 12/30/24 12/30/24 sennosides 8.6 mg-docusate sodium 1 tab-cap PO BID PRN constipation 12/30/24 12/30/24 50 mg tablet (Senna with Docusate Sodium) Previous Rx's ?Medication ?Instructions ?Recorded [id number] 24 31 g PO Q15M PRN Hypoglycemia #0 01/03/25 gram/31 gram oral gel grams (Insta-Glucose (with dextrin)) doxycycline monohydrate 100 mg 100 mg PO BID #20 tabs 01/03/25 tablet glucagon 1 mg solution for 1 mg IV Q15M PRN Hypoglycemia #0 ea 01/03/25 injection (Glucagon Emergency Kit) guaifenesin 100 mg/5 mL oral liquid 200 mg (10 mL) feeding tube Q6H 01/03/25 PRN Cough #0 mL metoprolol tartrate 50 mg tablet 50 mg G-tube BID #0 tabs 01/03/25 warfarin 5 mg tablet (Jantoven) 7.5 mg (1.5 x 5 mg) feeding tube 01/03/25 QD@1700 #0 tabs Allergies Allergy/AdvReac Type Severity Reaction Status Date / Time celecoxib Allergy Unknown Unknown Verified 12/30/24 06:28 niacin Allergy Unknown Unknown Verified 12/30/24 06:28 prasugrel Allergy Unknown Unknown Verified 12/30/24 06:28 [facility] Medical History (Updated 01/30/25 @ 11:35 by Brook Barajas MD) Lymphedema ?I89.0 - Lymphedema, not elsewhere classified (ICD-10) Benign prostatic hyperplasia ?N40.0 - Benign prostatic hyperplasia without lower urinary tract symptoms (ICD-10) Diabetes mellitus ?E11.9 - Type 2 diabetes mellitus without complications (ICD-10) CVA (cerebral vascular accident) ?I63.9 - Cerebral infarction, unspecified (ICD-10) Hypertension ?I10 - Essential (primary) hypertension (ICD-10) 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 General: Weak closing his eyes only opening his eyes when called Skin: Warm, dry, no pallor noted. No rash. Head: Normocephalic, atraumatic. Neck: Supple, non-tender. Eye: Pupils are equal, round and EOMI. No scleral icterus. Cardiovascular: irregular heart rate and rhythm Respiratory: Tachypneic but not using accessory muscles Lungs are clear to auscultation, no wheezing, rales or rhonchi Chest Wall: no tenderness Back: No midline thoracic or lumbar vertebral tenderness. No CVA tenderness Musculoskeletal: The patient have a decreased blood supply to lower extremities with skin changes that mostly chronic although there is a mild very weak pulses to both upper and lower extremities GI: Abdomen is soft, non-distended. Normal bowel sounds. G-tube for feeding No masses appreciated. No tenderness to palpation. No rebound, guarding, or rigidity noted. Neurological: A&O x4. No cranial nerve dysfunction observed. Constitutional Vital Signs, click to edit/add: Last Vital Signs Pulse 113 H 01/30/25 11:30 Resp 24 H 01/30/25 11:30 BP 70/40 L 01/30/25 10:51 Pulse Ox 93 L 01/30/25 11:30 O2 Del Method Nasal Cannula 01/30/25 11:12 O2 Flow Rate 4 01/30/25 11:12 Course Vital Signs Vital signs: Vital Signs Pulse Oximetry 89 L 01/30/25 10:40 Oxygen Delivery Method Nonrebreather 01/30/25 10:40 Oxygen Delivery Flow Rate 15 01/30/25 10:40 Pulse Rate 113 H 01/30/25 11:30 Respiratory Rate 24 H 01/30/25 11:30 Blood Pressure 70/40 L 01/30/25 10:51 Pulse Oximetry 93 L 01/30/25 11:30 Oxygen Delivery Method Nasal Cannula 01/30/25 11:12 Oxygen Delivery Flow Rate 4 01/30/25 11:12 MDM - Altered Mental Status MDM Narrative Medical decision making narrative: On arrival the patient EKG showing possible atrial rhythm with a heart rate of 206 but there was a ST elevation in lead I, II and aVL with reciprocal changes in the lateral leads The patient then had a another EKG showing a possible ventricular rhythm but that converted again to the atrial rhythm that was before and the patient was provided with Cardizem after which he was in A-fib with a heart rate of [address] elevation in lead I, II and aVL The patient also was provided earlier with 2 doses of Lopressor 5 mg that did not help controlling his heart rate The patient case was discussed with the division service manager on-call Dr. Luo and he agreed that this is possibly a STEMI I did speak with the patient who is more awake right now and he agreed to go for stent placement as well as his The patient troponin is elevated around 190 and the patient also have 1.6 creatinine his INR is within normal and he was started on heparin drip for ACS as well as heparin bolus The patient also was placed on a Cardizem drip after he responded to Cardizem bolus 1 L of IV fluid given to the patient and he will be transferred as soon as possible to [facility] for cardiac translator interpreter Data Labs: Lab Results 01/30/25 Range/Units 11:02 WBC 20.0 H (4.0-11.0) 10^3/uL RBC 4.28 L (4.70-6.10) 10^6/uL Hgb 12.6 L (14.0-18.0) g/dL Hct 40.7 L (42.0-54.0) % MCV 95.1 H (80.0-94.0) fL MCH 29.4 (25.9-34.0) pg MCHC 31.0 (29.9-35.2) g/dL RDW 17.5 H (11.0-15.0) % Plt Count 205 (150-450) 10^3/uL MPV 10.7 (9.5-13.5) fL Neut % (Auto) 75.5 H (43.0-75.0) % Lymph % (Auto) 15.6 L (20.5-60.0) % [place] % (Auto) 6.0 (1.7-12.0) % Eos % (Auto) 0.2 L (0.9-7.0) % Baso % (Auto) 0.3 (0.2-2.0) % Neut # (Auto) 15.1 H (1.4-6.5) 10^3/uL Lymph # (Auto) 3.1 (1.2-3.8) 10^3/uL [place] # (Auto) 1.2 H (0.3-0.8) 10^3/uL Eos # (Auto) 0.0 (0.0-0.7) 10^3/uL Baso # (Auto) 0.1 (0.0-0.1) 10^3/uL Abs Immat Gran (auto) 0.48 H (0.00-0.03) 10^3/uL Imm/Tot Granulo (auto) 2.4 H (0.0-0.5) % PT 15.6 H (9.0-11.6) sec INR 1.54 Sodium 146 H (136-145) mmol/L Potassium 4.8 (3.5-5.1) mmol/L Chloride 109 H (98-107) mmol/L Carbon Dioxide 16.9 L (21.0-32.0) mmol/L Anion Gap 24.9 BUN 30.0 H (7.0-18.0) mg/dL Creatinine 1.66 H (0.70-1.30) mg/dL Est GFR ( Amer) 49 L (>=60 mL/min/1.73m^2) Est GFR (Non-Af Amer) 40 L (>=60 mL/min/1.73m^2) BUN/Creatinine Ratio 18.1 Glucose 318 H (74-106) mg/dL Calcium 8.7 (8.5-10.1) mg/dL Magnesium 2.4 (1.8-2.4) mg/dL Total Bilirubin 2.0 H (0.2-1.0) mg/dL AST 188 H (15-37) U/L ALT 211 H (16-63) U/L Alkaline Phosphatase 389 H (46-116) U/L Troponin I High Sens 190.8 H* (4.0-76.1) pg/mL Total Protein 7.2 (6.4-8.2) g/dL Albumin 1.8 L (3.4-5.0) g/dL Globulin 5.4 g/dL Albumin/Globulin Ratio 0.3 Discharge Plan Discharge Chief Complaint: Arrhythmia/Palpitations Clinical Impression: ST elevation (STEMI) myocardial infarction, Atrial fibrillation with rapid ventricular response Patient Disposition: [facility] Time of Disposition Decision: 11:35
[2025-01-30 11:37] LABS: ABG PCO2 23.0 mmHg (35.0-45.0); Allen Test POSITIVE (POSITIVE); HCO3 ABG 9.3 mmol/L (22.0-26.0); Oxygen Saturation ABG 98.2 %; PO2 ABG 115.0 mmHg (80.0-100.0)
[2025-01-30 11:38] LABS: Liters per Minute 4; O2 Mode NC; Puncture Site RB
[2025-01-30] MEDS: HEPARIN SODIUM (PORCINE) 5,000 UNIT/ML VIAL 4000 UNIT IV (11:41)
[2025-01-30] MEDS: HEPARIN SODIUM,PORCINE/D5W 25,000 UNIT/500 ML IV.SOLN 20 UNIT IV (11:50)
[2025-01-30 11:51] LABS: Lactate/Lactic Acid 12.9 mmol/L (0.4-2.0)
[2025-01-30] MEDS: TICAGRELOR 90 MG TABLET 180 MG PO (12:31)
[2025-01-30] MEDS: ASPIRIN 81 MG TAB.CHEW 324 MG PO (12:32)
== END 2025-01-30 12:45 | disposition short-term general hospital (02) ==
PROVIDERS: Emergency Provider Emergency Medicine; Family Provider Internal Medicine; PCP Family Medicine
DX: I21.3 ST elevation (STEMI) myocardial infarction of unspecified site (principal); I48.20 Chronic atrial fibrillation, unspecified
CPT/HCPCS: 36415; 36600; 51702; 71045; 80053; 81003; 82805; 83605; 83735; 84484; 85025; 85610; 93005; 96365; 96368; 96375; 96376; 99285; J1644